=== PATIENT | female | born 1935 | race Caucasian/White ===

== ENCOUNTER 2017-05-19 14:16 | Observation (INO) ==
--- NOTE | 2017-05-19 14:54 | Emergency Department Note ---
Disposition Clinical Impression: UTI (urinary tract infection) Qualifiers: Urinary tract infection type: acute cystitis Disposition: Admitted As Inpatient Condition: Good Referrals: Braden Garibay MD [Primary Care Provider] - Forms: ED Satisfaction Letter Time of Disposition: 16:56 General Adult HPI - General Chief complaint: ED Urogenital-Female Stated complaint: UTI Time Seen by Provider: 05/19/17 14:28 Source: EMS Limitations: altered mental status Nursing Notes Reviewed: Yes Vital Signs Reviewed: Yes - History of Present Illness HPI Narrative: History of a UTI. Increased confusion. Unable to get her antibiotics at the [facility] due to low staffing and patient frequently pulling her IVs out. Pain Scale: 0 - Related Data Home Medications Medication Instructions Recorded Confirmed Acetaminophen [Tylenol] 325 mg PO Q6HR 09/14/15 05/12/16 Budesonide/Formoterol 160/4.5 2 puff IH BIDR 09/14/15 05/12/16 [Symbicort 160/4.5] Calcitriol 0.5 mcg PO Q48H 09/14/15 05/12/16 Docusate [Colace] 100 mg PO BID 09/14/15 05/12/16 Ferrous Sulfate [Iron] 325 mg PO DAILY 09/14/15 05/12/16 Fluticasone Propionate Nasal 1 spray NS DAILY 09/14/15 05/12/16 [Flonase] Folic Acid 1 mg PO DAILY 09/14/15 05/12/16 LORazepam [Ativan] 0.5 mg PO BID 09/14/15 05/12/16 Levothyroxine Sodium [Tirosint] 125 mcg PO DAILY 09/14/15 05/12/16 Magnesium Oxide [Magnesium] 400 mg PO DAILY 09/14/15 05/12/16 Memantine HCl [Namenda Xr] 28 mg PO DAILY 09/14/15 05/12/16 Metoprolol [Lopressor] 25 mg PO BID 09/14/15 05/12/16 Mirtazapine [Remeron] 15 mg PO HS 09/14/15 05/12/16 Nitrofurantoin Macrocrystal 50 mg PO HS 09/14/15 05/12/16 [Macrodantin] Omeprazole [PriLOSEC] 20 mg PO DAILY 09/14/15 05/12/16 Paroxetine HCl 10 mg PO DAILY 09/14/15 05/12/16 Previous Rx's Medication Instructions Recorded Gentamicin in NaCl, Iso-Osm 80 mg IV Q12HR 5 Days mls 05/18/17 [Gentamicin 90 mg/Ns 100 ml Pb] Allergies Allergy/AdvReac Type Severity Reaction Status Date / Time Amoxicillin Allergy unknown Verified 05/19/17 14:36 atropine Allergy unknown Verified 05/19/17 14:36 Diphenoxylate Allergy unknown Verified 05/19/17 14:36 enalapril Allergy unknown Verified 05/19/17 14:36 esomeprazole Allergy inknown Verified 05/19/17 14:36 Hydromorphone Allergy unknown Verified 05/19/17 14:36 Iodinated Contrast- Oral and Allergy unknown Verified 05/19/17 14:36 IV Dye [Iodinated Contrast Media - IV Dye] nitrofurantoin Allergy unknown Verified 05/19/17 14:36 Penicillins Allergy unkown Verified 05/19/17 14:36 piroxicam Allergy unknown Verified 05/19/17 14:36 Sulfa (Sulfonamide Allergy unknown Verified 05/19/17 14:36 Antibiotics) Limitations: ROS unobtainable due to patients medical condition Past Medical History - Past Medical History Medical history: Reports: dementia, GERD, hypertension, thyroid disease, other Surgical history: Reports: no surgical history Psychiatric history: Reports: anxiety, depression - Social History Smoking Status: Never smoker Alcohol use: Reports: none Drug use: Reports: none Physical Exam - General Limitations: altered mental status General appearance: alert, in no apparent distress - Head Head exam: atraumatic, normocephalic - Eye Eye exam: Present: normal appearance, PERRL, EOMI. Absent: scleral icterus - ENT ENT exam: normal exam, normal oropharynx, mucous membranes moist - Neck Neck exam: Present: normal inspection, full ROM, trachea midline. Absent: tenderness, meningismus - Chest Chest inspection: Present: normal inspection, symmetric chest wall rise. Absent : tenderness - Respiratory Respiratory exam: Present: normal lung sounds bilaterally. Absent: respiratory distress, wheezes, accessory muscle use - Cardiovascular Cardiovascular exam: Present: regular rate, normal rhythm, normal heart sounds - Abdominal Exam Abdominal exam: Present: soft, Non-Tender, normal bowel sounds. Absent: tenderness, distention, guarding, rebound, rigidity, organomegaly - Extremities Exam Extremities exam: Present: normal inspection, full ROM, normal capillary refill. Absent: tenderness, pedal edema - Back Exam Back exam: Present: normal inspection, full ROM. Absent: tenderness - Neurological Exam Neurological exam: Present: alert, other (Confused) - Psychiatric Psychiatric exam: Present: normal affect, normal mood - Skin Skin exam: Present: warm, dry, intact, normal color. Absent: rash, cyanosis, diaphoresis, erythema Course Course Narrative: Female patient presenting to the emergency department by EMS. Family is shortly behind her. They are advising that the patient is not acting herself. They state that she has been diagnosed with the UTI and has been treated for this however she cannot get her antibiotics at the [facility] due to her being so confused. They stated that she is pulling out her IVs. Patient has no complaints on my exam. She is pleasantly demented. Lung sounds are clear heart tones are normal. Abdomen soft and nontender. We will get a basic workup on the patient. I anticipate admission. We have started her on Rocephin while she is here for her UTI. - Reevaluation(s) Reevaluation #1: It appears as if the patient's size a urinary tract infection. We will admit patient to the hospital. We have started her on Rocephin. We have the sensitivities on paperwork from the culture that was taken on May 16 of her urine. She is sensitive to Rocephin. We have started this year. - Consultations Consultation #1: Dr. Dorman accepted patient in stable condition. Time: 16:44 Vital Signs Temperature 98.7 F 05/19/17 14:21 Pulse Rate 51 05/19/17 14:21 Respiratory Rate 14 05/19/17 14:21 Blood Pressure 138/82 05/19/17 14:21 O2 Sat by Pulse Oximetry 96 05/19/17 14:21 Temperature 98.7 F 05/19/17 14:21 Pulse Rate 54 05/19/17 16:20 Respiratory Rate 16 05/19/17 16:20 Blood Pressure 137/77 05/19/17 16:20 O2 Sat by Pulse Oximetry 97 05/19/17 16:20 Oxygen Delivery Oxygen Delivery Nasal Cannula Medical Decision Making - Medical Records Medical records reviewed: Yes I reviewed the patient's medical records. - Lab Data Lab results reviewed: Yes I reviewed the patient's lab results. Result diagrams: 05/19/17 15:01 05/19/17 15:01 Lab Results 05/19/17 05/19/17 05/19/17 Range/Units 15:01 15:01 16:15 WBC 4.7 (4.3-11.1) K/mcL RBC 4.34 (3.82-4.97) M/mcL Hgb 12.5 (11.5-15.4) g/dL Hct 40.3 (35.3-44.9) % MCV 92.9 (83.0-100.0) fL MCH 28.8 (28.0-33.3) pg MCHC 31.0 L (31.6-35.5) g/dL RDW 14.5 (11.5-14.5) % Plt Count 105 L (140-400) K/mcL MPV 11.1 (9.4-12.4) fL Immature Gran % 0.4 (0-4) % Seg Neutrophils % 65.3 % Lymphocytes % 19.4 % Monocytes % 11.3 % Eosinophils % 3.0 % Basophils % 0.6 % Neutrophils # 3.1 (1.6-8.9) K/mcL Lymphocytes # 0.9 (0.6-4.6) K/mcL Monocytes # 0.5 (0.0-1.3) K/mcL Eosinophils # 0.1 (0.0-0.6) K/mcL Basophils # 0.0 (0.0-0.2) K/mcL Immature Plt Fraction 7.4 H (1.1-6.1) % Sodium 140 (136-145) mEq/L Potassium 4.0 (3.5-4.5) mEq/L Chloride 103 (98-109) mEq/L Carbon Dioxide 29 (19-29) mEq/L BUN 24 H (7-20) mg/dL Creatinine 0.96 (0.57-1.11) mg/dL Est GFR ( Amer) > 60 (> 60) Est GFR (Non-Af Amer) 56 L (> 60) BUN/Creatinine Ratio 25 (6-26) Glucose 116 H (70-99) mg/dL Calculated Osmolality 295 (280-300) Calcium 9.8 (8.6-10.8) mg/dL Urine Color Yellow (Yellow) Urine Clarity Turbid A (Clear) Urine pH 7.0 (5.0-8.0) pH Units Ur Specific [place] 1.018 (1.010-1.025) Urine Protein Negative (Neg-Trace) mg/dL Urine Glucose (UA) Normal (Normal) mg/dL Urine Ketones Negative (Negative) mg/dL Urine Blood Negative (Negative) Urine Nitrite Negative (Negative) Urine Bilirubin Negative (Negative) Urine Urobilinogen Normal (Normal) mg/dL Ur Leukocyte Esterase Small H (Negative) Urine Microscopic RBC 3-5 H (0-3) per hpf Urine Microscopic WBC 5-15 H (0-3) per hpf Ur Squamous Epith Cells Many H (None-Few) per lpf Urine Bacteria None Seen (None-Few) per hpf Hyaline Casts None Seen (None-Few) per lpf Ur Culture Indicated? YES A (NO)
[2017-05-19 15:07] LABS: Hematocrit 40.3 % (35.3-44.9); Hemoglobin 12.5 g/dL (11.5-15.4); Immature Granulocytes % 0.4 % (0-4); Immature Platelets 7.4 % (1.1-6.1); Lymphocytes % 19.4 %; Mean Corpuscular Hemoglobin 28.8 pg (28.0-33.3); Mean Corpuscular Volume 92.9 fL (83.0-100.0); Mean Platelet Volume 11.1 fL (9.4-12.4); Monocytes % 11.3 %; Platelet Count 105 K/mcL (140-400); Red Blood Count 4.34 M/mcL (3.82-4.97); Red Cell Distribution Width 14.5 % (11.5-14.5); Segmented Neutrophils % 65.3 %
[2017-05-19 15:08] LABS: Basophils % 0.6 %; Eosinophils # 0.1 K/mcL (0.0-0.6); Lymphocytes # 0.9 K/mcL (0.6-4.6); Monocytes # 0.5 K/mcL (0.0-1.3); Neutrophils # 3.1 K/mcL (1.6-8.9)
--- NOTE | 2017-05-19 15:12 | Emergency Department Note ---
START Narrative - START START: I examined this patient and my medical decision-making was reviewed with the Resident Physician. I agree with the documented findings, disposition and treatment plan as described except to the extent set forth below. 81-year-old female sent over from the [facility] for weakness and poor by mouth intake. Patient was seen yesterday in our ER and diagnosed with the UTI. A culture report. They started the patient on gentamicin through the IV. She got 2 doses of that so far. The family states that they do not have enough staff to take care of her at the [facility] and they feel that she is not eating or drinking and is more weak and more withdrawn than she normally is. Review of the urine culture that was done as an outpatient that showed Proteus penneri. This was susceptible to vancomycin as well as to Rocephin. I think with her age that we would prefer to do Rocephin to see if she has an allergic reaction or not. Family does not feel safe taking her back to the [facility]. They would prefer the patient to be admitted. We will recheck some labs as well as urinalysis and send off another urine culture today.
[2017-05-19 15:20] LABS: BUN/Creatinine Ratio 25 (6-26); Blood Urea Nitrogen 24 mg/dL (7-20); Calcium 9.8 mg/dL (8.6-10.8); Carbon Dioxide 29 mEq/L (19-29); Chloride 103 mEq/L (98-109); Glucose 116 mg/dL (70-99); Osmolality,Calculated 295 (280-300); Sodium 140 mEq/L (136-145); eGFR For African Americans > 60 (> 60); eGFR For Non-African Americans 56 (> 60)
[2017-05-19 16:29] LABS: Bilirubin,Urine Negative (Negative); Blood,Urine Negative (Negative); Clarity,Urine Turbid (Clear); Color,Urine Yellow (Yellow); Glucose,Urine (UA) Normal (Normal); Ketones,Urine Negative (Negative); Leukocyte Esterase,Urine Small (Negative); Nitrite,Urine Negative (Negative); Protein,Urine Negative (Neg-Trace); Specific Gravity,Urine 1.018 (1.010-1.025); Urobilinogen,Urine Normal (Normal)
[2017-05-19 16:32] LABS: Bacteria,Urine None Seen per hpf (None-Few); Hyaline Casts,Urine None Seen per lpf (None-Few); Squamous Epithelial Cell,Urine Many per lpf (None-Few)
[2017-05-19] MEDS ORDERED: Acetaminophen 325 MG TABLET PO PRN (17:46)
[2017-05-19] MEDS ORDERED: Naloxone 0.4 MG/ML INJ IVP PRN (17:46)
--- NOTE | 2017-05-19 18:30 | Event Note ---
Date of Encounter: 05/19/17 Time of Encounter: 18:27 patient seen and examined. Proteus UTI. Will give ceftriaxone according to sensitivities. Family mentioned that she was hypoxic in NH and have some cough. Will check chest Xray. Full code
--- NOTE | 2017-05-19 18:42 | Internal Med History&Physical ---
Date of Encounter: 05/19/17 Time of Encounter: 18:40 Assessment and Plan (1) UTI (urinary tract infection) Current visit: Yes Status: Acute Patient has recent diagnosis of UTI with Culture on 05/14 growing Proteus sensitive to Rocephin. Continue Rocephin IVPB. IV fluids 0.9NS at 75mL/hr. Qualifiers: Urinary tract infection type: acute cystitis Hematuria presence: without hematuria Qualified Code(s): N30.00 - Acute cystitis without hematuria (2) Hypoxia Current visit: Yes Status: Acute Patient's family reports her oxygen level was in the 70's on room air this morning. Patient does not normally wear oxygen. Lungs sound clear on auscultation and patient satting mid-high 90s on 2L NC. Will check Chest Xray. (3) Dementia Current visit: Yes Status: Acute Patient has Parkinson's and dementia. She is pleasantly confused today. Bed alarm, Fall precautions. Continue home doses of Namenda and Sinemet. Qualifiers: Dementia type: Parkinson's disease Dementia behavioral disturbance: without behavioral disturbance Qualified Code(s): G20 - Parkinson's disease; F02.80 - Dementia in other diseases classified elsewhere without behavioral disturbance; F02.80 - Dementia in other diseases classified elsewhere without behavioral disturbance; F02.80 - Dementia in other diseases classified elsewhere without behavioral disturbance (4) Celiac disease Current visit: Yes Status: Chronic Celiac diet. (5) DVT prophylaxis Current visit: Yes Status: Acute anti-embolic stockings Heparin SQ BID Internal Medicine - H&P: HPI Chief complaint: confusion Admitted From: Emergency Dept Plans for Post Hospital Care: Transfer [facility] History of present illness: Ms. Griffin is a 81 year old female with dementia, hypertension, hypothyroid, Parkinson's was sent to the emergency department today from her long term with confusion. Patient's family reports she has not been behaving like herself , thinks more confused. Patient's family reports that she has not been eating and drinking very well either. He also reports that this morning her oxygen level was in the 70s on room air. Patient has baseline dementia and does not report any complaints on review of systems. She denies any pain or dysuria. Patient was diagnosed with UTI recently with cultures growing Proteus sensitive to ceftriaxone. Evaluation emergency department revealed normal white blood cell count 4.7. Otherwise are grossly normal. Coronary urine culture was sent. On exam, patient alert and oriented 2 and pleasantly confused. She follows directions appropriately. Heart has regular rate and rhythm, lungs are clear to auscultation bilaterally. Abdomen soft, nontender, with positive bowel sounds. No peripheral edema. Past Med Surg Social Fam HX - Past Medical History Medical history: dementia, GERD, hypertension, thyroid disease, other Psychiatric history: anxiety, depression - Past Surgical History Surgical History: no surgical history - Social History Smoking Status: Never smoker Smokeless Tobacco Status: No Alcohol use: none Drug use: none - Family History Father Living Status: Hx Family Cardiac Disorders: Yes Mother Living Status: Hx Family Cardiac Disorders: Yes Internal Medicine - H&P: Meds Acetaminophen [Tylenol] 650 mg PO Q6HR PRN 09/14/15 [History] Budesonide/Formoterol 160/4.5 [Symbicort 160/4.5] 2 puff IH BIDR 09/14/15 [ History] Calcitriol 1 mcg PO Q48H 09/14/15 [History] Docusate [Colace] 100 mg PO BID 09/14/15 [History] Folic Acid 1 mg PO DAILY 09/14/15 [History] LORazepam [Ativan] 0.25 mg PO BID PRN 09/14/15 [History] Magnesium Oxide [Magnesium] 400 mg PO DAILY 09/14/15 [History] Memantine HCl [Namenda Xr] 28 mg PO DAILY 09/14/15 [History] Metoprolol [Lopressor] 25 mg PO BID 09/14/15 [History] Mirtazapine [Remeron] 7.5 mg PO HS 09/14/15 [History] Nitrofurantoin Macrocrystal [Macrodantin] 50 mg PO HS 09/14/15 [History] Omeprazole [PriLOSEC] 20 mg PO DAILY 09/14/15 [History] Paroxetine HCl 10 mg PO DAILY 09/14/15 [History] Gentamicin in NaCl, Iso-Osm [Gentamicin 90 mg/Ns 100 ml Pb] 80 mg IV Q12HR 5 Days mls 05/18/17 [Rx] Albuterol Sulfate [Albuterol Inhaler] 2 puff IH Q4-6H PRN 05/19/17 [History] Azelastine 0.1% Nasal [place] [Astelin] 2 spr NS BID 05/19/17 [History] Calcium Carbonate/Vitamin D3 [Calcium 500 mg Chewable Tablet] 1,500 mg PO BID [History] Carbidopa/Levodopa ER 50/200 [Sinemet ER 50-200 TAB] 1 tab PO BID 05/19/17 [ History] Lactobacillus Acidophilus [Acidophilus] 1 cap PO BID 05/19/17 [History] Levothyroxine Sodium [Levoxyl] 175 mcg PO DAILY 05/19/17 [History] Magnesium Hydroxide [Milk of Magnesia] 30 ml PO DAILY PRN 05/19/17 [History] Na Phos,M-B/Na Phos,Di-Ba [Fleet Enema Extra] 1 each RC Q48H PRN 05/19/17 [ History] 3 Allergy/AdvReac Type Severity Reaction Status Date / Time Amoxicillin Allergy unknown Verified 05/19/17 14:36 atropine Allergy unknown Verified 05/19/17 14:36 Diphenoxylate Allergy unknown Verified 05/19/17 14:36 enalapril Allergy unknown Verified 05/19/17 14:36 esomeprazole Allergy inknown Verified 05/19/17 14:36 Hydromorphone Allergy unknown Verified 05/19/17 14:36 Iodinated Contrast- Oral and Allergy unknown Verified 05/19/17 14:36 IV Dye [Iodinated Contrast Media - IV Dye] nitrofurantoin Allergy unknown Verified 05/19/17 14:36 Penicillins Allergy unkown Verified 05/19/17 14:36 piroxicam Allergy unknown Verified 05/19/17 14:36 Sulfa (Sulfonamide Allergy unknown Verified 05/19/17 14:36 Antibiotics) All Systems PM: A 10-system review of systems was performed and is negative for pertinent findings except as documented above in the HPI. - Constitutional Constitutional: no chills, no fever(s), no night sweats - EENT Eyes: no change in vision, no discharge, no pain, no photophobia Ears: no ear discharge, no ear pain, no tinnitus Nose, mouth and throat: no dysphagia, no nasal discharge, no neck pain, no sore throat - Cardiovascular Cardiovascular ROS IM: no chest pain, no diaphoresis, no dyspnea, no lightheadedness, no palpitations, no syncope - Respiratory Respiratory: no cough, no dyspnea, no wheezing, no excessive phlegm production - Gastrointestinal Gastrointestinal: no abdominal pain, no diarrhea, no hematemesis, no hematochezia, no melena, no nausea, no vomiting - Genitourinary Genitourinary: no change in urinary stream, no dysuria, no flank pain, no hematuria - Musculoskeletal Musculoskeletal ROS IM: no numbness, no tingling - Integumentary Integumentary IM: no rash, no unusual bruising - Neurological Neurological ROS: no confusion, no convulsions, no focal weakness, no numbness, no tingling, no tremor(s) - Hematologic/Lymphatic Hematologic/Lymphatic: no easy bruising - Constitutional Vitals: Temp Pulse Resp BP Pulse Ox 97.6 F 56 16 142/80 98 05/19/17 17:45 05/19/17 17:45 05/19/17 17:45 05/19/17 17:45 05/19/17 17:45 General appearance: Present: A&O X 2, pleasant, no acute distress - Head Head exam: Present: atraumatic, normocephalic - Eye Eye exam: Present: PERRL, conjuntiva pink, sclera anicteric Pupils: Present: PERRL - Neck Neck exam general surgery: Present: supple, trachea midline. Absent: lymphadenopathy - Respiratory Respiratory exam: Present: CTAB. Absent: accessory muscle use, rales, rhonchi, wheezes - Cardiovascular Cardiovascular exam: Present: RRR, +S1, +S2. Absent: diastolic murmur, gallop, rubs, systolic murmur - GI/Abdominal GI/Abdominal exam: Present: normal bowel sounds, soft, no peritoneal signs. Absent: distended, tenderness - Extremities Exam Extremities exam: Present: warm, radial pulses palpable and symmetrical. Absent : calf tenderness, cyanotic, pedal edema - Neurological Exam Neurological exam: Present: CN II-XII intact, oriented X3, no focal deficits. Absent: pronater drift, facial droop, speech deficit - Skin Skin exam: Present: dry, intact Internal Med - H&P Results - Labs CBC & Chem 7: 05/19/17 15:01 05/19/17 15:01 Labs: All Lab Results (24 Hours) 10/07/17 10/07/17 10/07/17 Range/Units 15:01 15:01 16:15 WBC 4.7 (4.3-11.1) K/mcL RBC 4.34 (3.82-4.97) M/mcL Hgb 12.5 (11.5-15.4) g/dL Hct 40.3 (35.3-44.9) % MCV 92.9 (83.0-100.0) fL MCH 28.8 (28.0-33.3) pg MCHC 31.0 L (31.6-35.5) g/dL RDW 14.5 (11.5-14.5) % Plt Count 105 L (140-400) K/mcL MPV 11.1 (9.4-12.4) fL Immature Gran % 0.4 (0-4) % Seg Neutrophils % 65.3 % Lymphocytes % 19.4 % Monocytes % 11.3 % Eosinophils % 3.0 % Basophils % 0.6 % Neutrophils # 3.1 (1.6-8.9) K/mcL Lymphocytes # 0.9 (0.6-4.6) K/mcL Monocytes # 0.5 (0.0-1.3) K/mcL Eosinophils # 0.1 (0.0-0.6) K/mcL Basophils # 0.0 (0.0-0.2) K/mcL Immature Plt Fraction 7.4 H (1.1-6.1) % Sodium 140 (136-145) mEq/L Potassium 4.0 (3.5-4.5) mEq/L Chloride 103 (98-109) mEq/L Carbon Dioxide 29 (19-29) mEq/L BUN 24 H (7-20) mg/dL Creatinine 0.96 (0.57-1.11) mg/dL Est GFR ( Amer) > 60 (> 60) Est GFR (Non-Af Amer) 56 L (> 60) BUN/Creatinine Ratio 25 (6-26) Glucose 116 H (70-99) mg/dL Calculated Osmolality 295 (280-300) Calcium 9.8 (8.6-10.8) mg/dL Urine Color Yellow (Yellow) Urine Clarity Turbid A (Clear) Urine pH 7.0 (5.0-8.0) pH Units Ur Specific [place] 1.018 (1.010-1.025) Urine Protein Negative (Neg-Trace) mg/dL Urine Glucose (UA) Normal (Normal) mg/dL Urine Ketones Negative (Negative) mg/dL Urine Blood Negative (Negative) Urine Nitrite Negative (Negative) Urine Bilirubin Negative (Negative) Urine Urobilinogen Normal (Normal) mg/dL Ur Leukocyte Esterase Small H (Negative) Urine Microscopic RBC 3-5 H (0-3) per hpf Urine Microscopic WBC 5-15 H (0-3) per hpf Ur Squamous Epith Cells Many H (None-Few) per lpf Urine Bacteria None Seen (None-Few) per hpf Hyaline Casts None Seen (None-Few) per lpf Ur Culture Indicated? YES A (NO)
[2017-05-19] MEDS: Mirtazapine 15 MG TABLET PO SCH ×3 (21:44→23:59)
[2017-05-19] MEDS: Carbidopa/Levodopa ER 50/200 TABLET PO SCH ×3 (21:44→23:59)
[2017-05-19] MEDS: Lactobacillus 1 EACH CAP.SPRINK PO SCH ×3 (21:44→23:59)
[2017-05-19] MEDS: 0.9 % Sodium Chloride 1,000 ML IVC SCH ×2 (21:44→23:44)
[2017-05-19] MEDS: *HR* LORazepam 0.5 MG TABLET PO PRN ×2 (21:47→23:59)
[2017-05-19] MEDS: Ipratropium/Albuterol Neb 3 ML IH SCH (22:10)
[2017-05-19] MEDS: Budesonide/Formoterol 160/4.5 MDI IH SCH (22:12)
[2017-05-20] MEDS: Ipratropium/Albuterol Neb 3 ML IH SCH ×2 (04:23→09:55)
[2017-05-20 04:37] LABS: Hematocrit 38.3 % (35.3-44.9); Immature Granulocytes % 0.4 % (0-4); Red Cell Distribution Width 14.5 % (11.5-14.5)
[2017-05-20 04:39] LABS: Basophils % 0.8 %; Eosinophils # 0.2 K/mcL (0.0-0.6); Eosinophils % 3.6 %; Immature Platelets 11.1 % (1.1-6.1); Lymphocytes % 20.4 %; Mean Corpuscular HGB Conc 31.3 g/dL (31.6-35.5); Mean Corpuscular Hemoglobin 29.1 pg (28.0-33.3); Mean Corpuscular Volume 92.7 fL (83.0-100.0); Mean Platelet Volume 12.7 fL (9.4-12.4); Monocytes # 0.5 K/mcL (0.0-1.3); Monocytes % 10.2 %; Red Blood Count 4.13 M/mcL (3.82-4.97); Segmented Neutrophils % 64.6 %
[2017-05-20 04:52] LABS: BUN/Creatinine Ratio 23 (6-26); Blood Urea Nitrogen 22 mg/dL (7-20); Carbon Dioxide 23 mEq/L (19-29); Chloride 104 mEq/L (98-109); Glucose 89 mg/dL (70-99); Osmolality,Calculated 291 (280-300); Potassium 4.4 mEq/L (3.5-4.5); Sodium 139 mEq/L (136-145); eGFR For African Americans > 60 (> 60); eGFR For Non-African Americans 57 (> 60)
[2017-05-20 04:57] LABS: Platelet Count 93 K/mcL (140-400)
[2017-05-20] MEDS ORDERED: Folic Acid 1 MG TABLET PO SCH (09:00)
[2017-05-20] MEDS ORDERED: Magnesium Oxide 400 MG TABLET PO SCH (09:00)
[2017-05-20] MEDS: Lactobacillus 1 EACH CAP.SPRINK PO SCH (09:05)
[2017-05-20] MEDS: Carbidopa/Levodopa ER 50/200 TABLET PO SCH (09:05)
[2017-05-20] MEDS: Budesonide/Formoterol 160/4.5 MDI IH SCH (09:55)
[2017-05-20 10:53] VITALS: BP 147/68
--- NOTE | 2017-05-20 11:35 | Discharge Summary ---
Date of Encounter: 05/20/17 Time of Encounter: 10:00 - Discharge Diagnosis (1) UTI (urinary tract infection) Priority: Primary Status: Acute Comments: with Proteus penneri sensitive to 3rd gen cephalosporins Qualifiers: Urinary tract infection type: acute cystitis Hematuria presence: without hematuria Qualified Code(s): N30.00 - Acute cystitis without hematuria (2) Celiac disease Priority: Secondary Status: Chronic (3) Dementia Priority: Secondary Status: Acute Qualifiers: Dementia type: Parkinson's disease Dementia behavioral disturbance: without behavioral disturbance Qualified Code(s): G20 - Parkinson's disease; F02.80 - Dementia in other diseases classified elsewhere without behavioral disturbance; F02.80 - Dementia in other diseases classified elsewhere without behavioral disturbance; F02.80 - Dementia in other diseases classified elsewhere without behavioral disturbance (4) DVT prophylaxis Priority: Secondary Status: Acute (5) Hypoxia Priority: Secondary Status: Acute - Discharge Medications Prescriptions: Azithromycin [Azithromycin 6-Tab Pack] 250 mg PO PER PKG DI #6 tab Cefixime [Suprax] 400 mg PO DAILY #10 capsule LORazepam [Ativan] 0.25 mg PO BID PRN #14 tablet PRN Reason: Anxiety Home Medications: Acetaminophen [Tylenol] 650 mg PO Q6HR PRN 09/14/15 [History] Budesonide/Formoterol 160/4.5 [Symbicort 160/4.5] 2 puff IH BIDR 09/14/15 [ History] Calcitriol 1 mcg PO Q48H 09/14/15 [History] Docusate [Colace] 100 mg PO BID 09/14/15 [History] Folic Acid 1 mg PO DAILY 09/14/15 [History] Magnesium Oxide [Magnesium] 400 mg PO DAILY 09/14/15 [History] Memantine HCl [Namenda Xr] 28 mg PO DAILY 09/14/15 [History] Metoprolol [Lopressor] 25 mg PO BID 09/14/15 [History] Mirtazapine [Remeron] 7.5 mg PO HS 09/14/15 [History] Nitrofurantoin Macrocrystal [Macrodantin] 50 mg PO HS 09/14/15 [History] Omeprazole [PriLOSEC] 20 mg PO DAILY 09/14/15 [History] Paroxetine HCl 10 mg PO DAILY 09/14/15 [History] Albuterol Sulfate [Albuterol Inhaler] 2 puff IH Q4-6H PRN 05/19/17 [History] Azelastine 0.1% Nasal [place] [Astelin] 2 spr NS BID 05/19/17 [History] Calcium Carbonate/Vitamin D3 [Calcium 500 mg Chewable Tablet] 1,500 mg PO BID [History] Carbidopa/Levodopa ER 50/200 [Sinemet ER 50-200 Tab] 1 tab PO BID 05/19/17 [ History] Lactobacillus Acidophilus [Acidophilus] 1 cap PO BID 05/19/17 [History] Levothyroxine Sodium [Levoxyl] 175 mcg PO DAILY 05/19/17 [History] Magnesium Hydroxide [Milk of Magnesia] 30 ml PO DAILY PRN 05/19/17 [History] Na Phos,M-B/Na Phos,Di-Ba [Fleet Enema Extra] 1 each RC Q48H PRN 05/19/17 [ History] Azithromycin [Azithromycin 6-Tab Pack] 250 mg PO PER PKG DI #6 tab 05/20/17 [Rx] Cefixime [Suprax] 400 mg PO DAILY #10 capsule 05/20/17 [Rx] LORazepam [Ativan] 0.25 mg PO BID PRN #14 tablet 05/20/17 [Rx] Allergies/Adverse Reactions: 3 Allergy/AdvReac Type Severity Reaction Status Date / Time Amoxicillin Allergy unknown Verified 05/19/17 14:36 atropine Allergy unknown Verified 05/19/17 14:36 Diphenoxylate Allergy unknown Verified 05/19/17 14:36 enalapril Allergy unknown Verified 05/19/17 14:36 esomeprazole Allergy inknown Verified 05/19/17 14:36 Hydromorphone Allergy unknown Verified 05/19/17 14:36 Iodinated Contrast- Oral and Allergy unknown Verified 05/19/17 14:36 IV Dye [Iodinated Contrast Media - IV Dye] nitrofurantoin Allergy unknown Verified 05/19/17 14:36 Penicillins Allergy unkown Verified 05/19/17 14:36 piroxicam Allergy unknown Verified 05/19/17 14:36 Sulfa (Sulfonamide Allergy unknown Verified 05/19/17 14:36 Antibiotics) Date of admission: 05/19/17 16:57 Primary care physician: Braden Garibay MD Discharging clinician: Ana M Dillard Anticipated date of discharge: 05/20/17 - Patient Status Disposition: Transfer SNF Condition: Good Functional capacity at discharge: uses cane/walker Overall status at discharge: patient is progressing back to baseline - Discharge Instructions Instructions: Urinary Tract Infection in Women (DC) Follow Up With: Braden Garibay MD [Primary Care Provider] - (in 1-2 weeks) - Diet and Activity Activity: as per physical therapy Diet: low fat, low cholesterol, low salt diet, other (gluten free diet) Hospital course: Ms. Griffin is a 81 year old female patient who [facility] at [facility] with a history of dementia, celiac disease was sent over to the ER with episodes of increased confusion. Patient had recently been seen in the ER at different facilities and had previously been diagnosed with urinary tract infection. Patient had been treated with Cipro for 7 days. However her urine culture grew Proteus penneri that is resistant to ciprofloxacin but sensitive to ceftriaxone and gentamicin. Patient had been sent back to the [facility] from ER yesterday during her initial visit here with a prescription for IV gentamicin. However she had been pulling off her IV and was also having hypoxia with oxygen in the 70s on room air. She was evaluated here in the ER again. Chest x-ray showed basilar atelectasis/infiltrate. She did not have any signs of pneumonia. She does have underlying COPD which could be contributing to her hypoxia. She was started on treatment with ceftriaxone for her urinary tract infection. This morning she is doing much better clinically. She is stable to be discharged back to [facility] facility. She will need to be on oxygen to keep sats greater than 88%. She will be discharged back on oral Suprax to complete treatment course for her Proteus UTI. - Time Spent with Patient Total time spent providing and/or coordinating discharge services: Greater than 30 minutes (32 min) - Constitutional Vitals: Temp Pulse Resp BP Pulse Ox 98.0 F 78 20 147/68 92 05/20/17 10:50 05/20/17 10:50 05/20/17 10:50 05/20/17 10:50 05/20/17 10:50 General appearance: Present: A&O X 2, pleasant, no acute distress, answers questions appropriately - Eye Eye exam: Present: EOMI, PERRL, conjuntiva pink, sclera anicteric - Respiratory Respiratory exam: Present: CTAB. Absent: accessory muscle use, rales, rhonchi, wheezes - Cardiovascular Cardiovascular exam: Present: RRR, +S1, +S2. Absent: diastolic murmur, gallop, rubs, systolic murmur - GI/Abdominal GI/Abdominal exam: Present: normal bowel sounds, soft, no peritoneal signs. Absent: distended, tenderness - Neurological Exam Neurological exam: Present: alert, no focal deficits. Absent: facial droop, speech deficit
--- NOTE | 2017-05-20 11:45 | Physician Discharge Referral ---
ExtendedCare Referral Info Provider in Charge after Transfer: PCP Institutional Level of Care: Skilled - Diagnosis (1) UTI (urinary tract infection) Priority: Primary Status: Acute (2) Celiac disease Priority: Secondary Status: Chronic (3) Dementia Priority: Secondary Status: Acute (4) DVT prophylaxis Priority: Secondary Status: Acute (5) Hypoxia Priority: Secondary Status: Acute Prognosis: Fair Aware of Diagnosis: Patient, Family Aware of Prognosis: Family - Transfer Medications Prescriptions: Azithromycin [Azithromycin 6-Tab Pack] 250 mg PO PER PKG DI #6 tab Cefixime [Suprax] 400 mg PO DAILY #10 capsule LORazepam [Ativan] 0.25 mg PO BID PRN #14 tablet PRN Reason: Anxiety Home Medications: Acetaminophen [Tylenol] 650 mg PO Q6HR PRN 09/14/15 [History] Budesonide/Formoterol 160/4.5 [Symbicort 160/4.5] 2 puff IH BIDR 09/14/15 [ History] Calcitriol 1 mcg PO Q48H 09/14/15 [History] Docusate [Colace] 100 mg PO BID 09/14/15 [History] Folic Acid 1 mg PO DAILY 09/14/15 [History] Magnesium Oxide [Magnesium] 400 mg PO DAILY 09/14/15 [History] Memantine HCl [Namenda Xr] 28 mg PO DAILY 09/14/15 [History] Metoprolol [Lopressor] 25 mg PO BID 09/14/15 [History] Mirtazapine [Remeron] 7.5 mg PO HS 09/14/15 [History] Nitrofurantoin Macrocrystal [Macrodantin] 50 mg PO HS 09/14/15 [History] Omeprazole [PriLOSEC] 20 mg PO DAILY 09/14/15 [History] Paroxetine HCl 10 mg PO DAILY 09/14/15 [History] Albuterol Sulfate [Albuterol Inhaler] 2 puff IH Q4-6H PRN 05/19/17 [History] Azelastine 0.1% Nasal [place] [Astelin] 2 spr NS BID 05/19/17 [History] Calcium Carbonate/Vitamin D3 [Calcium 500 mg Chewable Tablet] 1,500 mg PO BID [History] Carbidopa/Levodopa ER 50/200 [Sinemet ER 50-200 Tab] 1 tab PO BID 05/19/17 [ History] Lactobacillus Acidophilus [Acidophilus] 1 cap PO BID 05/19/17 [History] Levothyroxine Sodium [Levoxyl] 175 mcg PO DAILY 05/19/17 [History] Magnesium Hydroxide [Milk of Magnesia] 30 ml PO DAILY PRN 05/19/17 [History] Na Phos,M-B/Na Phos,Di-Ba [Fleet Enema Extra] 1 each RC Q48H PRN 05/19/17 [ History] Azithromycin [Azithromycin 6-Tab Pack] 250 mg PO PER PKG DI #6 tab 05/20/17 [Rx] Cefixime [Suprax] 400 mg PO DAILY #10 capsule 05/20/17 [Rx] LORazepam [Ativan] 0.25 mg PO BID PRN #14 tablet 05/20/17 [Rx] Allergies/Adverse Reactions: 3 Allergy/AdvReac Type Severity Reaction Status Date / Time Amoxicillin Allergy unknown Verified 05/19/17 14:36 atropine Allergy unknown Verified 05/19/17 14:36 Diphenoxylate Allergy unknown Verified 05/19/17 14:36 enalapril Allergy unknown Verified 05/19/17 14:36 esomeprazole Allergy inknown Verified 05/19/17 14:36 Hydromorphone Allergy unknown Verified 05/19/17 14:36 Iodinated Contrast- Oral and Allergy unknown Verified 05/19/17 14:36 IV Dye [Iodinated Contrast Media - IV Dye] nitrofurantoin Allergy unknown Verified 05/19/17 14:36 Penicillins Allergy unkown Verified 05/19/17 14:36 piroxicam Allergy unknown Verified 05/19/17 14:36 Sulfa (Sulfonamide Allergy unknown Verified 05/19/17 14:36 Antibiotics) - Respiratory Orders Oxygen / L per min (keep sats 90%) Smoking Cessation: Smoking cessation has been advised. For more information, call the [place] Tobacco Quit Line at 3-499-ARPL-NOW. - Advance Directives Code Status: Full Code - Mobility Orders Other (per PT) - Rehabiliation Orders Rehab Potential: Fair Rehab Orders: Evaluation for Physical Therapy, Evaluation for Occupational Therapy - Diet Orders Cardiac (gluten free) CERTIFICATION: I certify that the transfer of the above named patient to an Extended Care Facility is necessary for the continuing treatment of the diagnosis listed. The above information is true and accurate reflection of patient's current condition. Confidential - Redisclosure prohibited without a patient's written consent.
[2017-05-20] MEDS ORDERED: CefTRIAXone 1,000 MG VIAL IM ONE (12:06)
== END 2017-05-20 14:26 ==
LOC: EMEROO 14:16 → 3ANU 14:16 → SUATTDRO 16:57 → 3ANU 17:36
PROVIDERS: ADMIT Hospitalist; ATTEND Internal Medicine

== ENCOUNTER 2018-03-25 09:45 | Inpatient (IN) ==
--- NOTE | 2018-03-25 09:54 | Emergency Department Note ---
Disposition Clinical Impression: Decreased oral intake, Dehydration UTI (urinary tract infection) Qualifiers: Urinary tract infection type: site unspecified Hematuria presence: without hematuria Qualified Code(s): N39.0 - Urinary tract infection, site not specified Failure to thrive Qualifiers: Failure to thrive age range: in adult Qualified Code(s): R62.7 - Adult failure to thrive Disposition: Admitted As Inpatient Condition: Fair Referrals: Braden Garibay MD [Primary Care Provider] - Forms: ED Satisfaction Letter Time of Disposition: 12:07 General Adult HPI - General Chief complaint: ED Weakness Stated complaint: weakness Time Seen by Provider: 03/25/18 09:47 Source: patient Mode of arrival: ambulatory Limitations: no limitations Nursing Notes Reviewed: Yes Vital Signs Reviewed: Yes - History of Present Illness HPI Narrative: Patient is an 82-year-old female with past medical history of dementia, hypertension, hypothyroidism, a fib. She presents today due to decreased food and drink intake. EMS states that the patient has not eaten or drank any liquids for the past week. When asked why, she states that she "just does not feel like eating or drinking ". She denies any chest pain, shortness of breath , nausea, vomiting, fevers, diarrhea, abdominal pain. She states that she feels generally weak. Denies any focal numbness, tingling, weakness. Denies any falls. Denies any dysuria, hematuria. - Related Data Home Medications Medication Instructions Recorded Confirmed Acetaminophen [Tylenol] 650 mg PO Q6HR PRN 09/14/15 02/28/18 Budesonide/Formoterol 160/4.5 2 puff IH BIDR 09/14/15 02/28/18 [Symbicort 160/4.5] Calcitriol 1 mcg PO Q48H 09/14/15 02/28/18 Docusate [Colace] 100 mg PO BID 09/14/15 02/28/18 Folic Acid 1 mg PO DAILY 09/14/15 02/28/18 Magnesium Oxide [Magnesium] 400 mg PO DAILY 09/14/15 02/28/18 Memantine HCl [Namenda Xr] 28 mg PO DAILY 09/14/15 02/28/18 Metoprolol [Lopressor] 25 mg PO BID 09/14/15 02/28/18 Mirtazapine [Remeron] 7.5 mg PO HS 09/14/15 02/28/18 Nitrofurantoin Macrocrystal 50 mg PO HS 09/14/15 02/28/18 [Macrodantin] Omeprazole [PriLOSEC] 20 mg PO DAILY 09/14/15 02/28/18 Paroxetine HCl 10 mg PO DAILY 09/14/15 02/28/18 Azelastine 0.1% Nasal [place] 2 spr NS BID 05/19/17 02/28/18 [Astelin] Calcium Carbonate/Vitamin D3 1,500 mg PO BID 05/19/17 02/28/18 [Calcium 500 mg Chewable Tablet] Carbidopa/Levodopa ER 50/200 1 tab PO BID 05/19/17 02/28/18 [Sinemet ER 50-200 Tab] Lactobacillus Acidophilus 1 cap PO BID 05/19/17 02/28/18 [Acidophilus] Levothyroxine Sodium [Levoxyl] 175 mcg PO DAILY 05/19/17 02/28/18 Magnesium Hydroxide [Milk of 30 ml PO DAILY PRN 05/19/17 02/28/18 Magnesia] Na Phos,M-B/Na Phos,Di-Ba [Fleet 1 each RC Q48H PRN 05/19/17 02/28/18 Enema Extra] Albuterol Sulfate [Ventolin Hfa] 18 gm IH AD 05/24/17 02/28/18 Levothyroxine [Synthroid] 150 mcg PO DAILY 02/28/18 02/28/18 Quetiapine Fumarate [SEROquel] 12.5 mg PO BID 02/28/18 02/28/18 Allergies Allergy/AdvReac Type Severity Reaction Status Date / Time Amoxicillin Allergy unknown Verified 02/28/18 15:07 atropine Allergy unknown Verified 02/28/18 15:07 Diphenoxylate Allergy unknown Verified 02/28/18 15:07 enalapril Allergy unknown Verified 02/28/18 15:07 esomeprazole Allergy inknown Verified 02/28/18 15:07 Hydromorphone Allergy unknown Verified 02/28/18 15:07 Iodinated Contrast- Oral and Allergy unknown Verified 02/28/18 15:07 IV Dye [Iodinated Contrast Media - IV Dye] nitrofurantoin Allergy unknown Verified 02/28/18 15:07 Penicillins Allergy unkown Verified 02/28/18 15:07 piroxicam Allergy unknown Verified 02/28/18 15:07 Sulfa (Sulfonamide Allergy unknown Verified 02/28/18 15:07 Antibiotics) All systems ED: reviewed and negative except as stated. Constitutional: Denies: fever Respiratory: Denies: cough, dyspnea Gastrointestinal: Reports: other (Decreased food and drink intake). Denies: abdominal pain, nausea, vomiting, constipation Genitourinary: Denies: urgency, dysuria Musculoskeletal: Denies: back pain Integumentary: Denies: rash Neurological: Denies: headache, weakness, numbness Endocrine: Reports: fatigue Past Medical History - Past Medical History Attestation: Yes The following information was validated with the patient. Source: patient Medical history: Reports: dementia, GERD, hypertension, thyroid disease, other Surgical history: Reports: no surgical history Psychiatric history: Reports: anxiety, depression - Social History Smoking Status: Never smoker Smokeless Tobacco Status: No Alcohol use: Reports: none Drug use: Reports: none Physical Exam - General Limitations: no limitations General appearance: alert, in no apparent distress - Head Head exam: atraumatic, normocephalic, normal inspection - Eye Eye exam: Present: normal appearance, PERRL, EOMI - ENT ENT exam: normal oropharynx, mucous membranes dry - Neck Neck exam: Present: normal inspection, full ROM, trachea midline - Chest Chest inspection: Present: normal inspection, symmetric chest wall rise - Respiratory Respiratory exam: Present: normal lung sounds bilaterally - Cardiovascular Cardiovascular exam: Present: regular rate, normal rhythm, normal heart sounds - Abdominal Exam Abdominal exam: Present: soft, Non-Tender. Absent: tenderness, distention, guarding, rebound, rigidity - Extremities Exam Extremities exam: Present: normal inspection, full ROM. Absent: tenderness, pedal edema - Neurological Exam Neurological exam: Present: alert, oriented X3, CN II-XII intact. Absent: motor sensory deficit - Psychiatric Psychiatric exam: Present: normal affect, normal mood - Skin Skin exam: Present: warm, dry, intact, normal color Course Course Narrative: Systolic blood pressure 108. Otherwise, the rest of the vitals within normal limits. Physical exam shows dry mucous membranes. Otherwise, lungs clear to auscultation, abdomen soft and nontender. No overlying skin changes. We will perform basic blood work, TSH, free T3 and T4 due to history of hypothyroidism. We will also obtain urinalysis, chest x-ray. 11:48 patient has elevated troponin level. Urinalysis shows large leukocyte esterase, straight cath specimen. Will start on rocephin. Patient currently denies any chest pain or shortness of breath. Chest x-ray shows possible left pleural effusion but otherwise no signs of pneumonia. We will admit the patient for possible UTI, elevated troponin level, dehydration, failure to thrive. Chest X-Ray 03/25/18 09:54 IMPRESSION: Blunting of left costophrenic angle could represent a left pleural effusion. Otherwise, stable chest D/ / Tc Núñez MD / Tc Núñez MD Interpreting Provider: Tc Núñez MD Vital Signs Temperature 97.8 F 03/25/18 09:51 Pulse Rate 81 03/25/18 09:51 Respiratory Rate 18 03/25/18 09:51 Blood Pressure 105/84 03/25/18 09:51 O2 Sat by Pulse Oximetry 91 03/25/18 09:51 Temperature 97.8 F 03/25/18 09:51 Pulse Rate 93 03/25/18 11:52 Respiratory Rate 16 03/25/18 11:52 Blood Pressure 100/79 03/25/18 11:52 O2 Sat by Pulse Oximetry 99 03/25/18 11:52 Oxygen Delivery Oxygen Delivery Room Air Medical Decision Making - [facility] Narrative Medical decision making narrative: Systolic blood pressure 108. Otherwise, the rest of the vitals within normal limits. Physical exam shows dry mucous membranes. Otherwise, lungs clear to auscultation, abdomen soft and nontender. No overlying skin changes. We will perform basic blood work, TSH, free T3 and T4 due to history of hypothyroidism. We will also obtain urinalysis, chest x-ray. 11:48 patient has elevated troponin level. Urinalysis shows large leukocyte esterase, straight cath specimen. Will start on rocephin. Patient currently denies any chest pain or shortness of breath. Chest x-ray shows possible left pleural effusion but otherwise no signs of pneumonia. We will admit the patient for possible UTI, elevated troponin level, dehydration, failure to thrive. - Medical Records Medical records reviewed: Yes I reviewed the patient's medical records. - Lab Data Lab results reviewed: Yes I reviewed the patient's lab results. Result diagrams: 03/25/18 09:54 03/25/18 09:54 Lab Results 03/25/18 03/25/18 03/25/18 Range/Units 09:54 09:54 11:23 WBC 7.1 (4.3-11.1) K/mcL RBC 4.51 (3.82-4.97) M/mcL Hgb 13.3 (11.5-15.4) g/dL Hct 42.3 (35.3-44.9) % MCV 93.8 (83.0-100.0) fL MCH 29.5 (28.0-33.3) pg MCHC 31.4 L (31.6-35.5) g/dL RDW 15.5 H (11.5-14.5) % Plt Count 78 L (140-400) K/mcL MPV 13.8 H (9.4-12.4) fL Immature Gran % 0.6 (0-4) % Seg Neutrophils % 80.4 % Lymphocytes % 10.2 % Monocytes % 8.1 % Eosinophils % 0.6 % Basophils % 0.1 % Neutrophils # 5.7 (1.6-8.9) K/mcL Lymphocytes # 0.7 (0.6-4.6) K/mcL Monocytes # 0.6 (0.0-1.3) K/mcL Eosinophils # 0.0 (0.0-0.6) K/mcL Basophils # 0.0 (0.0-0.2) K/mcL Immature Plt Fraction 18.3 H (1.1-6.1) % Sodium 136 (136-145) mEq/L Potassium 4.1 (3.5-5.1) mEq/L Chloride 99 (98-107) mEq/L Carbon Dioxide 26 (23-29) mEq/L BUN 31 H (8-23) mg/dL Creatinine 1.19 (0.60-1.20) mg/dL Est GFR ( Amer) 53 L (> 60) Est GFR (Non-Af Amer) 43 L (> 60) BUN/Creatinine Ratio 26 (6-26) Glucose 79 (70-105) mg/dL Calculated Osmolality 287 (280-300) Calcium 10.1 (8.6-10.3) mg/dL Total Bilirubin 1.1 H (0.3-1.0) mg/dL AST 12 L (13-39) Units/L ALT 3 L (7-52) Units/L Alkaline Phosphatase 85 (34-104) Units/L Troponin I 0.05 H* (< 0.04) ng/mL Serum Total Protein 6.9 (6.4-8.9) g/dL Albumin 3.5 (3.5-5.7) g/dL Globulin 3.4 (2.4-3.5) g/dL Albumin/Globulin Ratio 1.0 L (1.1-2.2) TSH 0.672 (0.340-5.600) mcIU/mL Free T4 1.96 (0.70-2.00) ng/dl Free T3 2.44 L (2.50-3.90) pg/mL Urine Color Yellow (Yellow) Urine Clarity Turbid A (Clear) Urine pH 6.5 (5.0-8.0) pH Units Ur Specific [place] 1.017 (1.010-1.025) Urine Protein 100 H (Neg-Trace) mg/dL Urine Glucose (UA) Normal (Normal) mg/dL Urine Ketones Trace H (Negative) mg/dL Urine Blood Moderate H (Negative) Urine Nitrite Negative (Negative) Urine Bilirubin Negative (Negative) Urine Urobilinogen Normal (Normal) mg/dL Ur Leukocyte Esterase Large H (Negative) Urine Microscopic RBC Present (0-3) per hpf Urine Microscopic WBC TNTC H (0-3) per hpf Ur Squamous Epith Cells Present (None-Few) per lpf Urine Bacteria Many H (None-Few) per hpf Ur Culture Indicated? YES A (NO) - Radiology Data Radiology results reviewed: Yes I reviewed the patient's radiology results. Chest X-Ray 03/25/18 09:54 IMPRESSION: Blunting of left costophrenic angle could represent a left pleural effusion. Otherwise, stable chest D/ / Tc Núñez MD / Tc Núñez MD Interpreting Provider: Tc Núñez MD - EKG Data EKG #1 EKG attestation: Yes I reviewed and interpreted this EKG. EKG results narrative: 03/25/2018 at 09:55. A. fib. Heart rate 85. QTc 431. Normal axis. No acute ST elevation or depression. S.B.A.R. - S.B.A.R. Situation: Demographics Background: Presenting Complaint, Relevant PMH, Meds, & Allergies Assessment: Vital Signs, Course and respsone to treatment, Exam Concerns, Patient/Family Expectation, Pertinant Lab Results Recommendation: Barrier(s) to disposition, Recommendation based on pending studies, treatments, or consults S.B.A.R. Report Given to: Dr. Rivero
[2018-03-25] MEDS ORDERED: 0.9 % Sodium Chloride 1,000 ML IVC ONE (10:06)
--- NOTE | 2018-03-25 10:06 | Emergency Department Note ---
Disposition Clinical Impression: UTI (urinary tract infection), Failure to thrive, Decreased oral intake, Dehydration Disposition: Admitted As Inpatient Condition: Fair General Adult HPI - General Chief complaint: ED General Medical Stated complaint: weakness Time Seen by Provider: 03/25/18 09:47 Source: patient Mode of arrival: ambulatory Limitations: no limitations Nursing Notes Reviewed: Yes Vital Signs Reviewed: Yes - History of Present Illness Pain Scale: 0 - Related Data Home Medications Medication Instructions Recorded Confirmed Acetaminophen [Tylenol] 650 mg PO Q6HR PRN 09/14/15 02/28/18 Budesonide/Formoterol 160/4.5 2 puff IH BIDR 09/14/15 02/28/18 [Symbicort 160/4.5] Calcitriol 1 mcg PO Q48H 09/14/15 02/28/18 Docusate [Colace] 100 mg PO BID 09/14/15 02/28/18 Folic Acid 1 mg PO DAILY 09/14/15 02/28/18 Magnesium Oxide [Magnesium] 400 mg PO DAILY 09/14/15 02/28/18 Memantine HCl [Namenda Xr] 28 mg PO DAILY 09/14/15 02/28/18 Metoprolol [Lopressor] 25 mg PO BID 09/14/15 02/28/18 Mirtazapine [Remeron] 7.5 mg PO HS 09/14/15 02/28/18 Nitrofurantoin Macrocrystal 50 mg PO HS 09/14/15 02/28/18 [Macrodantin] Omeprazole [PriLOSEC] 20 mg PO DAILY 09/14/15 02/28/18 Paroxetine HCl 10 mg PO DAILY 09/14/15 02/28/18 Azelastine 0.1% Nasal [place] 2 spr NS BID 05/19/17 02/28/18 [Astelin] Calcium Carbonate/Vitamin D3 1,500 mg PO BID 05/19/17 02/28/18 [Calcium 500 mg Chewable Tablet] Carbidopa/Levodopa ER 50/200 1 tab PO BID 05/19/17 02/28/18 [Sinemet ER 50-200 Tab] Lactobacillus Acidophilus 1 cap PO BID 05/19/17 02/28/18 [Acidophilus] Levothyroxine Sodium [Levoxyl] 175 mcg PO DAILY 05/19/17 02/28/18 Magnesium Hydroxide [Milk of 30 ml PO DAILY PRN 05/19/17 02/28/18 Magnesia] Na Phos,M-B/Na Phos,Di-Ba [Fleet 1 each RC Q48H PRN 05/19/17 02/28/18 Enema Extra] Albuterol Sulfate [Ventolin Hfa] 18 gm IH AD 05/24/17 02/28/18 Levothyroxine [Synthroid] 150 mcg PO DAILY 02/28/18 02/28/18 Quetiapine Fumarate [SEROquel] 12.5 mg PO BID 02/28/18 02/28/18 Allergies Allergy/AdvReac Type Severity Reaction Status Date / Time Amoxicillin Allergy unknown Verified 02/28/18 15:07 atropine Allergy unknown Verified 02/28/18 15:07 Diphenoxylate Allergy unknown Verified 02/28/18 15:07 enalapril Allergy unknown Verified 02/28/18 15:07 esomeprazole Allergy inknown Verified 02/28/18 15:07 Hydromorphone Allergy unknown Verified 02/28/18 15:07 Iodinated Contrast- Oral and Allergy unknown Verified 02/28/18 15:07 IV Dye [Iodinated Contrast Media - IV Dye] nitrofurantoin Allergy unknown Verified 02/28/18 15:07 Penicillins Allergy unkown Verified 02/28/18 15:07 piroxicam Allergy unknown Verified 02/28/18 15:07 Sulfa (Sulfonamide Allergy unknown Verified 02/28/18 15:07 Antibiotics) Past Medical History - Past Medical History Medical history: Reports: dementia, GERD, hypertension, thyroid disease, other Surgical history: Reports: no surgical history Psychiatric history: Reports: anxiety, depression - Social History Smoking Status: Never smoker Smokeless Tobacco Status: No Alcohol use: Reports: none Drug use: Reports: none Physical Exam - General Limitations: no limitations General appearance: alert, in no apparent distress Course Vital Signs Temperature 97.8 F 03/25/18 09:51 Pulse Rate 81 03/25/18 09:51 Respiratory Rate 18 03/25/18 09:51 Blood Pressure 105/84 03/25/18 09:51 O2 Sat by Pulse Oximetry 91 03/25/18 09:51 Temperature 97.8 F 03/25/18 09:51 Pulse Rate 93 03/25/18 11:52 Respiratory Rate 16 03/25/18 11:52 Blood Pressure 100/79 03/25/18 11:52 O2 Sat by Pulse Oximetry 99 03/25/18 11:52 Oxygen Delivery Oxygen Delivery Room Air Medical Decision Making - MDM Narrative Medical decision making narrative: Chest X-Ray 03/25/18 09:54 IMPRESSION: Blunting of left costophrenic angle could represent a left pleural effusion. Otherwise, stable chest D/ / Tc Núñez MD / Tc Núñez MD Interpreting Provider: Tc Núñez MD 1212 hrs.: Patient does have an elevated troponin she denies chest pain. Regular bring her into the hospital with elevated troponin to thrive dehydration. Hospitalist as accepted for admission. - Lab Data Result diagrams: 03/25/18 09:54 03/25/18 09:54 Lab Results 03/25/18 03/25/18 03/25/18 Range/Units 09:54 09:54 11:23 WBC 7.1 (4.3-11.1) K/mcL RBC 4.51 (3.82-4.97) M/mcL Hgb 13.3 (11.5-15.4) g/dL Hct 42.3 (35.3-44.9) % MCV 93.8 (83.0-100.0) fL MCH 29.5 (28.0-33.3) pg MCHC 31.4 L (31.6-35.5) g/dL RDW 15.5 H (11.5-14.5) % Plt Count 78 L (140-400) K/mcL MPV 13.8 H (9.4-12.4) fL Immature Gran % 0.6 (0-4) % Seg Neutrophils % 80.4 % Lymphocytes % 10.2 % Monocytes % 8.1 % Eosinophils % 0.6 % Basophils % 0.1 % Neutrophils # 5.7 (1.6-8.9) K/mcL Lymphocytes # 0.7 (0.6-4.6) K/mcL Monocytes # 0.6 (0.0-1.3) K/mcL Eosinophils # 0.0 (0.0-0.6) K/mcL Basophils # 0.0 (0.0-0.2) K/mcL Immature Plt Fraction 18.3 H (1.1-6.1) % Sodium 136 (136-145) mEq/L Potassium 4.1 (3.5-5.1) mEq/L Chloride 99 (98-107) mEq/L Carbon Dioxide 26 (23-29) mEq/L BUN 31 H (8-23) mg/dL Creatinine 1.19 (0.60-1.20) mg/dL Est GFR ( Amer) 53 L (> 60) Est GFR (Non-Af Amer) 43 L (> 60) BUN/Creatinine Ratio 26 (6-26) Glucose 79 (70-105) mg/dL Calculated Osmolality 287 (280-300) Calcium 10.1 (8.6-10.3) mg/dL Total Bilirubin 1.1 H (0.3-1.0) mg/dL AST 12 L (13-39) Units/L ALT 3 L (7-52) Units/L Alkaline Phosphatase 85 (34-104) Units/L Troponin I 0.05 H* (< 0.04) ng/mL Serum Total Protein 6.9 (6.4-8.9) g/dL Albumin 3.5 (3.5-5.7) g/dL Globulin 3.4 (2.4-3.5) g/dL Albumin/Globulin Ratio 1.0 L (1.1-2.2) TSH 0.672 (0.340-5.600) mcIU/mL Free T4 1.96 (0.70-2.00) ng/dl Free T3 2.44 L (2.50-3.90) pg/mL Urine Color Yellow (Yellow) Urine Clarity Turbid A (Clear) Urine pH 6.5 (5.0-8.0) pH Units Ur Specific [place] 1.017 (1.010-1.025) Urine Protein 100 H (Neg-Trace) mg/dL Urine Glucose (UA) Normal (Normal) mg/dL Urine Ketones Trace H (Negative) mg/dL Urine Blood Moderate H (Negative) Urine Nitrite Negative (Negative) Urine Bilirubin Negative (Negative) Urine Urobilinogen Normal (Normal) mg/dL Ur Leukocyte Esterase Large H (Negative) Urine Microscopic RBC Present (0-3) per hpf Urine Microscopic WBC TNTC H (0-3) per hpf Ur Squamous Epith Cells Present (None-Few) per lpf Urine Bacteria Many H (None-Few) per hpf Ur Culture Indicated? YES A (NO) Attestation Statement - Attestation Attestation: This documentation is done with the assistance of Dragon dictation. Despite efforts made to ensure accuracy, there may be inaccuracies in gas pipe layer or spelling and typographical errors. I examined this patient and my medical decision-making was reviewed with the Resident Physician. I agree with the documented findings, disposition and treatment plan as described except to the extent set forth below. Patient seen and evaluated on arrival with EMS and Dr. Washington, I agree with his evaluation and management plan, supervise care the patient's stay. Patient presents due to weakness. And failure to thrive. She has any appetite not eating or drinking for last couple days. She has no complaints hour. She has a history of dementia but she is verbal she denies any pain. [facility] and [facility] reviewed. Esvin do some lab work on her urinalysis and then reassess. She is in agreement with this plan.
[2018-03-25 10:33] LABS: Eosinophils % 0.6 %; Mean Platelet Volume 13.8 fL (9.4-12.4)
[2018-03-25 10:34] LABS: Basophils % 0.1 %; Hematocrit 42.3 % (35.3-44.9); Hemoglobin 13.3 g/dL (11.5-15.4); Immature Granulocytes % 0.6 % (0-4); Immature Platelets 18.3 % (1.1-6.1); Lymphocytes # 0.7 K/mcL (0.6-4.6); Lymphocytes % 10.2 %; Mean Corpuscular HGB Conc 31.4 g/dL (31.6-35.5); Mean Corpuscular Hemoglobin 29.5 pg (28.0-33.3); Mean Corpuscular Volume 93.8 fL (83.0-100.0); Monocytes # 0.6 K/mcL (0.0-1.3); Monocytes % 8.1 %; Neutrophils # 5.7 K/mcL (1.6-8.9); Red Blood Count 4.51 M/mcL (3.82-4.97); Red Cell Distribution Width 15.5 % (11.5-14.5); Segmented Neutrophils % 80.4 %
[2018-03-25 10:36] LABS: Platelet Count 78 K/mcL (140-400)
[2018-03-25 10:54] LABS: Albumin 3.5 g/dL (3.5-5.7); Bilirubin,Total 1.1 mg/dL (0.3-1.0); Calcium 10.1 mg/dL (8.6-10.3); Globulin 3.4 g/dL (2.4-3.5); Potassium 4.1 mEq/L (3.5-5.1); Total Protein 6.9 g/dL (6.4-8.9)
[2018-03-25 11:07] LABS: Troponin I 0.05 ng/mL (< 0.04)
[2018-03-25 11:12] LABS: Thyroid Stimulating Hormone 0.672 mcIU/mL (0.340-5.600)
[2018-03-25 11:15] LABS: Triiodothyronine (T3) Free 2.44 pg/mL (2.50-3.90)
[2018-03-25 11:41] LABS: Bilirubin,Urine Negative (Negative); Blood,Urine Moderate (Negative); Clarity,Urine Turbid (Clear); Color,Urine Yellow (Yellow); Glucose,Urine (UA) Normal (Normal); Ketones,Urine Trace mg/dL (Negative); Leukocyte Esterase,Urine Large (Negative); Nitrite,Urine Negative (Negative); PH,Urine 6.5 pH Units (5.0-8.0); Protein,Urine 100 mg/dL (Neg-Trace); Specific Gravity,Urine 1.017 (1.010-1.025); Urobilinogen,Urine Normal (Normal)
[2018-03-25 11:51] LABS: WBC,Urine TNTC per hpf (0-3)
[2018-03-25 11:52] LABS: Squamous Epithelial Cell,Urine Present per lpf (None-Few)
[2018-03-25 11:53] LABS: Bacteria,Urine Many per hpf (None-Few); RBC,Urine Present per hpf (0-3)
[2018-03-25] MEDS ORDERED: cefTRIAXone 1,000 MG in Water for inj. (sterile) 20 ML 10 ML IVP ONE (12:04)
[2018-03-25] MEDS ORDERED: Naloxone 0.4 MG/ML INJ IVP PRN (12:37)
[2018-03-25] MEDS ORDERED: 0.9 % Sodium Chloride 1,000 ML IVC SCH (12:45)
--- NOTE | 2018-03-25 13:22 | Internal Med History&Physical ---
<John Lauren P - Last Filed: 03/25/18 13:50> Date of Encounter: 03/25/18 Time of Encounter: 12:20 Internal Medicine - H&P: HPI Chief complaint: Weakness Admitted From: Long-term Nursing Facility Plans for Post Hospital Care: Transfer [facility] History of present illness: Ms. Griffin is a 82 year old female who presents from [facility] for weakness and decreased oral intake getting progressively worse over the past week. Family states she is intermittently oriented at baseline but over the past week her confusion has been increased and she has been less interactive and not eating or drinking much. Patient states she hasn't felt like eating or drinking. Denies chest pain, shortness of breath, nausea, diarrhea, or urinary symptoms. Denies any alleviating or exacerbating factors. Family states patient is on prophylactic nitrofurantoin for ecoli UTI. Family also states patient was previously on warfarin for Afib but was taken off several years ago by PCP. Past Med Surg Social Fam HX - Past Medical History Medical history: dementia, GERD, hypertension, thyroid disease, other Additional medical history: Parkinson's Psychiatric history: anxiety, depression - Past Surgical History Surgical History: no surgical history Additional surgical history: thyroidectomy - Social History Smoking Status: Never smoker Smokeless Tobacco Status: No Alcohol use: none Drug use: none - Family History Father Living Status: Hx Family Cardiac Disorders: Yes Mother Living Status: Hx Family Cardiac Disorders: Yes Internal Medicine - H&P: Meds Acetaminophen [Tylenol] 650 mg PO Q6HR PRN 09/14/15 [History] Budesonide/Formoterol 160/4.5 [Symbicort 160/4.5] 2 puff IH BIDR 09/14/15 [ History] Calcitriol 2.5 mcg PO Q48H 09/14/15 [History] Docusate [Colace] 100 mg PO BID 09/14/15 [History] Folic Acid 1 mg PO DAILY 09/14/15 [History] Magnesium Oxide [Magnesium] 400 mg PO DAILY 09/14/15 [History] Memantine HCl [Namenda Xr] 28 mg PO DAILY 09/14/15 [History] Metoprolol [Lopressor] 25 mg PO BID 09/14/15 [History] Mirtazapine [Remeron] 7.5 mg PO HS 09/14/15 [History] Omeprazole [PriLOSEC] 20 mg PO DAILY 09/14/15 [History] Paroxetine HCl 10 mg PO DAILY 09/14/15 [History] Azelastine 0.1% Nasal [place] [Astelin] 2 spr NS BID 05/19/17 [History] Carbidopa/Levodopa ER 50/200 [Sinemet ER 50-200 Tab] 1 tab PO BID 05/19/17 [ History] Lactobacillus Acidophilus [Acidophilus] 1 cap PO BID 05/19/17 [History] Magnesium Hydroxide [Milk of Magnesia] 30 ml PO DAILY PRN 05/19/17 [History] Na Phos,M-B/Na Phos,Di-Ba [Fleet Enema Extra] 1 each RC Q48H PRN 05/19/17 [ History] Albuterol Sulfate [Ventolin Hfa] 2 puff IH Q4-6H PRN 05/24/17 [History] Levothyroxine [Synthroid] 150 mcg PO DAILY 02/28/18 [History] Quetiapine Fumarate [SEROquel] 12.5 mg PO BID 02/28/18 [History] Calcium Carbonate/Vitamin D3 [Calcium 600-Vit D3 400 Tablet] 1 tab PO DAILY [History] LORazepam [Ativan] 0.5 mg PO DAILY PRN 03/25/18 [History] Tramadol HCl [Ultram] 50 - 100 mg PO TID PRN 03/25/18 [History] 3 Allergy/AdvReac Type Severity Reaction Status Date / Time Amoxicillin Allergy unknown Verified 02/28/18 15:07 atropine Allergy unknown Verified 02/28/18 15:07 Diphenoxylate Allergy unknown Verified 02/28/18 15:07 enalapril Allergy unknown Verified 02/28/18 15:07 esomeprazole Allergy inknown Verified 02/28/18 15:07 Hydromorphone Allergy unknown Verified 02/28/18 15:07 Iodinated Contrast- Oral and Allergy unknown Verified 02/28/18 15:07 IV Dye [Iodinated Contrast Media - IV Dye] nitrofurantoin Allergy unknown Verified 02/28/18 15:07 Penicillins Allergy unkown Verified 02/28/18 15:07 piroxicam Allergy unknown Verified 02/28/18 15:07 Sulfa (Sulfonamide Allergy unknown Verified 02/28/18 15:07 Antibiotics) All Systems PM: A 10-system review of systems was performed and is negative for pertinent findings except as documented above in the HPI. - Constitutional Vitals: Temp Pulse Resp BP Pulse Ox 98.4 F 90 18 117/57 97 03/25/18 13:10 03/25/18 13:10 03/25/18 13:10 03/25/18 13:10 03/25/18 13:10 Exam: General: Alert. Oriented to person and place. Skin:Normal color, no rash, no lesions. HEENT:EOM, pupils equal, round and reactive. Cardiovascular:Irregular rate, no rubs, murmurs or gallops. No JVD. Lungs:Normal breath sounds, no wheezes or crackles. Abdomen:Soft, non-tender, no rigidity. Extremities:No deformity, no edema or tenderness, no joint swelling or clubbing. Neurological:Normal cognition and motor skills for patient baseline. Pulses:Carotid and radial pulses normal +2. Rest of the physical exam is non contributory Internal Med - H&P Results - Labs CBC & Chem 7: 03/25/18 09:54 03/25/18 09:54 - Assessment and plan (1) UTI (urinary tract infection) Current Visit: Yes Status: Acute Assessment and plan: On nitrofurantoin prophylactically for ecoli UTI. Will hold nitrofurantoin. ER UA shows large leukocyte esterase. Rocephin started in ER, will continue Rocephin tomorrow. Urine culture pending. Repeat labs in a.m. Qualifiers: Urinary tract infection type: site unspecified Hematuria presence: with hematuria Qualified Code(s): N39.0 - Urinary tract infection, site not specified; R31.9 - Hematuria, unspecified (2) Dehydration Current Visit: Yes Status: Acute Assessment and plan: Fluids started in ER. Continue fluids at 100 ml/hr for 1 liter. Repeat labs in a.m. (3) Failure to thrive Current Visit: Yes Status: Acute Assessment and plan: Nutrition consult ordered for supplementation recommendations. Qualifiers: Failure to thrive age range: in adult Qualified Code(s): R62.7 - Adult failure to thrive (4) Elevated troponin Current Visit: Yes Status: Acute Assessment and plan: Elevated troponin in ER. Serial troponins ordered. - Time Spent With Patient Total time spent is greater than 50% in coordination of care (as documented) at patient's floor/unit and/or counseling patient: <Cindy Rivero - Last Filed: 03/25/18 14:49> Date of Encounter: 03/25/18 Internal Medicine - H&P: HPI History of present illness: Ms. Griffin is a 82 year old female All Systems PM: A 10-system review of systems was performed and is negative for pertinent findings except as documented above in the HPI. - Constitutional Vitals: Temp Pulse Resp BP Pulse Ox 98.4 F 90 18 117/57 97 03/25/18 13:10 03/25/18 13:10 03/25/18 13:10 03/25/18 13:10 03/25/18 13:10 Internal Med - H&P Results - Labs CBC & Chem 7: 03/25/18 09:54 03/25/18 09:54 - Attending Attestation I have performed a face- to face examination of this patient and participated in formulation of robbins components of Assessment and plan with the SWATCH FOLDER. 82-year-old female who was brought in from home for altered mental status, failure to thrive. Apparently the family at bedside she has not been eating well she does have a history of dementia and Parkinson's disease at the baseline. On examination she is able to open her eyes to questioning and nods her head but does not talk much. Abdomen is soft nontender nondistended and cardiovascular sounds are normal. Neurological examination could not be completed because of patient mentation Agree with the assessment and plan as set forth by the nurse practitioner. She does have urinary tract infection and went to the family she does get worse and starts behaving like this when she has a UTI. In the past she has grown Escherichia coli which has been sensitive to multiple antibiotics . She had been on nitrofurantoin which clearly is not working in this situation to prevent UTIs from happening. We have started her on Rocephin and will monitor her cultures. She also has atrial fibrillation history but she is not on any anticoagulation according to the family she was taken off anticoagulants per her primary care physician rightly so for her dementia and being a fall risk. I would hesitate to start her back on anticoagulation. Also needs a nutrition consult and physical therapy and occupational therapy consult when she gets better. At this point her metabolic encephalopathy most likely is because of underlying infection, progressive dementia as well as urinary tract infection. - Assessment and plan (1) UTI (urinary tract infection) Current Visit: Yes Status: Acute Qualifiers: Urinary tract infection type: site unspecified Hematuria presence: with hematuria Qualified Code(s): N39.0 - Urinary tract infection, site not specified; R31.9 - Hematuria, unspecified (2) Failure to thrive Current Visit: Yes Status: Acute Qualifiers: Failure to thrive age range: in adult Qualified Code(s): R62.7 - Adult failure to thrive (3) Dehydration Current Visit: Yes Status: Acute (4) Elevated troponin Current Visit: Yes Status: Acute - Time Spent With Patient Total time spent is greater than 50% in coordination of care (as documented) at patient's floor/unit and/or counseling patient:
[2018-03-25] MEDS ORDERED: Acetaminophen 325 MG TABLET PO PRN (13:37)
[2018-03-25] MEDS ORDERED: CALCITRIOL PO SCH (13:45)
--- NOTE | 2018-03-25 16:16 | Electrocardiograph Report ---
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
[2018-03-25] MEDS: CALCITRIOL 0.5 MCG PO SCH (16:39)
[2018-03-25] MEDS: Budesonide/Formoterol 160/4.5 1 PUFF INH IH SCH (19:50)
[2018-03-25] MEDS: Mirtazapine 15 MG TABLET PO SCH (20:26)
[2018-03-25] MEDS: Lactobacillus 1 EACH CAP.SPRINK PO SCH (20:26)
[2018-03-25] MEDS: Carbidopa/Levodopa ER 50/200 TABLET PO SCH (20:26)
[2018-03-25] MEDS ORDERED: 0.9 % Sodium Chloride 500 ML IVC ONE (23:16)
[2018-03-25] MEDS: Azelastine 0.1% Nasal Spray 30 ML BOTTLE NS SCH (23:17)
[2018-03-26] MEDS ORDERED: 0.9 % Sodium Chloride 1,000 ML IVC ONE (01:26)
[2018-03-26 02:19] LABS: Basophils % 0.2 %; Immature Granulocytes % 0.3 % (0-4)
[2018-03-26 02:21] LABS: Eosinophils % 0.2 %; Hematocrit 34.2 % (35.3-44.9); Hemoglobin 10.5 g/dL (11.5-15.4); Immature Platelets 13.5 % (1.1-6.1); Lymphocytes # 0.3 K/mcL (0.6-4.6); Lymphocytes % 5.6 %; Mean Corpuscular HGB Conc 30.7 g/dL (31.6-35.5); Mean Corpuscular Hemoglobin 29.1 pg (28.0-33.3); Mean Corpuscular Volume 94.7 fL (83.0-100.0); Mean Platelet Volume 13.4 fL (9.4-12.4); Monocytes # 0.5 K/mcL (0.0-1.3); Monocytes % 7.6 %; Neutrophils # 5.1 K/mcL (1.6-8.9); Red Blood Count 3.61 M/mcL (3.82-4.97); Red Cell Distribution Width 15.1 % (11.5-14.5); Segmented Neutrophils % 86.1 %
[2018-03-26 02:24] LABS: Platelet Count 69 K/mcL (140-400)
[2018-03-26 02:26] LABS: BUN/Creatinine Ratio 27 (6-26); Blood Urea Nitrogen 26 mg/dL (8-23); Calcium 8.3 mg/dL (8.6-10.3); Carbon Dioxide 21 mEq/L (23-29); Chloride 109 mEq/L (98-107); Glucose 88 mg/dL (70-105); Osmolality,Calculated 294 (280-300); Potassium 3.6 mEq/L (3.5-5.1); Sodium 140 mEq/L (136-145); eGFR For Non-African Americans 56 (> 60)
[2018-03-26] MEDS ORDERED: 0.9 % Sodium Chloride 500 ML IV ONE (05:39)
[2018-03-26] MEDS: Budesonide/Formoterol 160/4.5 1 PUFF INH IH SCH ×2 (07:30→19:48)
[2018-03-26] MEDS ORDERED: NON-FORMULARY MEDICATION 1 EACH EACH (Calcium Carbonate/Vitamin D3 [Calcium 600-Vit D3 400 PO SCH (09:00)
[2018-03-26] MEDS: cefTRIAXone 1,000 MG in Water for inj. (sterile) 20 ML 10 ML IVP SCH (09:42)
[2018-03-26] MEDS: Lactobacillus 1 EACH CAP.SPRINK PO SCH ×2 (09:43→20:50)
[2018-03-26] MEDS: Magnesium Oxide 400 MG TABLET PO SCH (09:43)
[2018-03-26] MEDS: Carbidopa/Levodopa ER 50/200 TABLET PO SCH ×2 (09:44→20:42)
[2018-03-26] MEDS: Folic Acid 1 MG TABLET PO SCH (09:44)
[2018-03-26] MEDS: Cholecalciferol (D-3) 1,000 UNIT TABLET PO SCH (09:44)
[2018-03-26] MEDS: Azelastine 0.1% Nasal Spray 30 ML BOTTLE NS SCH ×2 (09:45→20:40)
--- NOTE | 2018-03-26 10:18 | Internal Med Progress Note ---
Hospitalist Progress Note - Encounter Date of Encounter: 03/26/18 Time of Encounter: 10:18 - Subjective Interval History: Patient seen and examined at bedside She is alert and oriented to name and place.Denies any pain or discomfort - Exam Vitals: Temp Pulse Resp BP Pulse Ox 97.5 F L 79 18 91/61 97 03/26/18 06:56 03/26/18 06:56 03/26/18 07:32 03/26/18 06:56 03/26/18 07:32 Exam: General: Alert and oriented x2 Skin:Normal color, no rash, no lesions. HEENT:EOM, pupils equal, round and reactive. Cardiovascular:Normal S1 & S2, no rubs, murmurs or gallops. No JVD. Pulse regular. Lungs:Normal breath sounds, no wheezes or crackles. Abdomen:Soft, non-tender, no rigidity. Extremities:No deformity, no edema or tenderness, no joint swelling or clubbing. Neurological:Normal cognition and motor skills. Pulses:Carotid and radial pulses normal +2. Rest of the physical exam is non contributory. - Assessment and Plan (1) UTI (urinary tract infection) Current Visit: Yes Status: Acute Assessment and Plan: On nitrofurantoin prophylactically for ecoli UTI. Will hold nitrofurantoin. ER UA shows large leukocyte esterase. Rocephin started in ER, will continue Rocephin-pending urine culture (2) Failure to thrive Current Visit: Yes Status: Acute Assessment and Plan: Nutrition consult ordered for supplementation recommendations- ensure Will closely monitor I/O if cont not to eat will consider possible Megace - (3) Dehydration Current Visit: Yes Status: Acute Assessment and Plan: closely monitor I/O Continue fluids at 75ml/hr - dt poor oral intake Monitor labs and replace electrolytes . (4) Elevated troponin Current Visit: Yes Status: Acute Assessment and Plan: Elevated troponin in ER. Serial troponins ordered flat adynamic suspect rt to infection will monitor (5) Celiac disease Current Visit: No Status: Chronic Assessment and Plan: 1hx of celiac disease- nutrition consulted, gluten free diet (6) Hypothyroidism Current Visit: No Status: Chronic Assessment and Plan: S/P thyroid surgery and parathyroid removed . On calcitrol was hospitalized with hypercalcemia around December 2014 and calcitriol dose reduced to 0.5 mg daily. monitor PTH and calcium level (7) Thrombocytopenia Current Visit: No Status: Chronic Assessment and Plan: this is chronic - monitor for s/sx of bleeding - Time Spent with Patient Total time spent is greater than 50% in coordination of care (as documented) at patient's floor/unit and/or counseling patient: Internal Medicine: Result - Labs CBC & Chem 7: 03/26/18 01:48 03/26/18 01:48 Labs: Short CBC 03/26/18 Range/Units 01:48 WBC 5.9 (4.3-11.1) K/mcL Hgb 10.5 L D (11.5-15.4) g/dL Hct 34.2 L (35.3-44.9) % Plt Count 69 L (140-400) K/mcL Neutrophils # 5.1 (1.6-8.9) K/mcL BMP 03/26/18 01:48 Sodium 140 Potassium 3.6 Chloride 109 H Carbon Dioxide 21 L BUN 26 H Creatinine 0.95 Glucose 88 Calcium 8.3 L Cardiac Enzymes 03/26/18 Range/Units 01:48 Troponin I 0.05 H* (< 0.04) ng/mL - VTE Documentation of Mechanical Device: Intermittent pneumatic compression device Consult Discharge Plan - Plan Referrals: Braden Garibay MD [Primary Care Provider] - (1) UTI (urinary tract infection) Qualifiers: Urinary tract infection type: site unspecified Hematuria presence: with hematuria Qualified Code(s): N39.0 - Urinary tract infection, site not specified; R31.9 - Hematuria, unspecified (2) Failure to thrive Qualifiers: Failure to thrive age range: in adult Qualified Code(s): R62.7 - Adult failure to thrive (6) Hypothyroidism Qualifiers: Hypothyroidism type: unspecified Qualified Code(s): E03.9 - Hypothyroidism, unspecified
[2018-03-26] MEDS: 0.9 % Sodium Chloride 1,000 ML IVC SCH (17:09)
[2018-03-26] MEDS: Mirtazapine 15 MG TABLET PO SCH (20:43)
[2018-03-27 06:08] LABS: Basophils % 0.2 %; Red Cell Distribution Width 15.6 % (11.5-14.5); Segmented Neutrophils % 84.8 %
[2018-03-27 06:10] LABS: Eosinophils # 0.1 K/mcL (0.0-0.6); Eosinophils % 1.1 %; Hematocrit 33.9 % (35.3-44.9); Hemoglobin 10.5 g/dL (11.5-15.4); Immature Granulocytes % 0.9 % (0-4); Immature Platelets 9.8 % (1.1-6.1); Lymphocytes # 0.3 K/mcL (0.6-4.6); Lymphocytes % 6.3 %; Mean Corpuscular Hemoglobin 29.7 pg (28.0-33.3); Mean Platelet Volume 13.1 fL (9.4-12.4); Monocytes # 0.4 K/mcL (0.0-1.3); Monocytes % 6.7 %; Neutrophils # 4.6 K/mcL (1.6-8.9); Red Blood Count 3.53 M/mcL (3.82-4.97)
[2018-03-27 06:12] LABS: Platelet Count 75 K/mcL (140-400)
[2018-03-27 06:33] LABS: BUN/Creatinine Ratio 26 (6-26); Blood Urea Nitrogen 19 mg/dL (8-23); Calcium 8.3 mg/dL (8.6-10.3); Carbon Dioxide 20 mEq/L (23-29); Chloride 114 mEq/L (98-107); Glucose 162 mg/dL (70-105); Osmolality,Calculated 302 (280-300); Potassium 3.1 mEq/L (3.5-5.1); Sodium 143 mEq/L (136-145); eGFR For Non-African Americans > 60 (> 60)
[2018-03-27] MEDS: Budesonide/Formoterol 160/4.5 1 PUFF INH IH SCH ×2 (07:38→20:11)
[2018-03-27] MEDS ORDERED: Potassium Chloride 40 MEQ, Lidocaine 1% 2 ML in D5% in Water 500 ML IVPB ONE (07:47)
[2018-03-27] MEDS: 0.9 % Sodium Chloride 1,000 ML IVC SCH ×3 (08:41→22:59)
[2018-03-27] MEDS: cefTRIAXone 1,000 MG in Water for inj. (sterile) 20 ML 10 ML IVP SCH (08:42)
[2018-03-27] MEDS: Folic Acid 1 MG TABLET PO SCH (08:43)
[2018-03-27] MEDS: Magnesium Oxide 400 MG TABLET PO SCH (08:43)
[2018-03-27] MEDS: Cholecalciferol (D-3) 1,000 UNIT TABLET PO SCH (08:43)
[2018-03-27] MEDS: Carbidopa/Levodopa ER 50/200 TABLET PO SCH ×2 (08:43→20:33)
[2018-03-27] MEDS: Lactobacillus 1 EACH CAP.SPRINK PO SCH ×2 (08:43→20:33)
[2018-03-27] MEDS: Azelastine 0.1% Nasal Spray 30 ML BOTTLE NS SCH ×2 (08:45→20:32)
[2018-03-27] MEDS: CALCITRIOL 0.5 MCG PO SCH (09:49)
--- NOTE | 2018-03-27 10:10 | Internal Med Progress Note ---
Hospitalist Progress Note - Encounter Date of Encounter: 03/27/18 Time of Encounter: 10:09 - Subjective Interval History: Patient seen and examined at bedside She is alert and oriented to name and place. She has had a poor appetite did discuss with the patient whether or not she has poor appetite or nausea. Patient states that she only likes certain foods. Inform nursing staff to order something that would appeal the patient in order to get her to eat. - Exam Vitals: Temp Pulse Resp BP Pulse Ox 97.6 F 110 16 115/82 99 03/27/18 06:44 03/27/18 06:44 03/27/18 07:40 03/27/18 06:44 03/27/18 07:40 Exam: General: Alert and oriented x2 Skin:Normal color, no rash, no lesions. HEENT:EOM, pupils equal, round and reactive. Cardiovascular:Normal S1 & S2, no rubs, murmurs or gallops. No JVD. Pulse regular. Lungs:Normal breath sounds, no wheezes or crackles. Abdomen:Soft, non-tender, no rigidity. Extremities:No deformity, no edema or tenderness, no joint swelling or clubbing. Neurological:Normal cognition and motor skills. Pulses:Carotid and radial pulses normal +2. Rest of the physical exam is non contributory. - Assessment and Plan (1) UTI (urinary tract infection) Current Visit: Yes Status: Acute Assessment and Plan: On nitrofurantoin prophylactically for ecoli UTI. Will hold nitrofurantoin. ER UA shows large leukocyte esterase. Urine culture growing Proteus mirabilis E coli-sensitive to Rocephin which we will continue (2) Failure to thrive Current Visit: Yes Status: Acute Assessment and Plan: Nutrition consult ordered for supplementation recommendations- ensure Patient states she does not have an appetite she has been refusing pills however will take him with much coaxing and in applesauce Will closely monitor I/O if cont not to eat will consider possible Megace - (3) Dehydration Current Visit: Yes Status: Acute Assessment and Plan: closely monitor I/O Continue fluids at 75ml/hr - dt poor oral intake Monitor labs and replace electrolytes . (4) Elevated troponin Current Visit: Yes Status: Acute Assessment and Plan: Elevated troponin in ER. Serial troponins ordered flat adynamic suspect rt to infection will monitor (5) Celiac disease Current Visit: No Status: Chronic Assessment and Plan: 1hx of celiac disease- nutrition consulted, gluten free diet (6) Hypothyroidism Current Visit: No Status: Chronic Assessment and Plan: S/P thyroid surgery and parathyroid removed . On calcitrol was hospitalized with hypercalcemia around December 2014 and calcitriol dose reduced to 0.5 mg daily. monitor PTH and calcium level (7) Thrombocytopenia Current Visit: No Status: Chronic Assessment and Plan: this is chronic - monitor for s/sx of bleeding - Time Spent with Patient Total time spent is greater than 50% in coordination of care (as documented) at patient's floor/unit and/or counseling patient: Internal Medicine: Result - Labs CBC & Chem 7: 03/27/18 05:32 03/27/18 05:32 Labs: Short CBC 03/27/18 Range/Units 05:32 WBC 5.4 (4.3-11.1) K/mcL Hgb 10.5 L (11.5-15.4) g/dL Hct 33.9 L (35.3-44.9) % Plt Count 75 L (140-400) K/mcL Neutrophils # 4.6 (1.6-8.9) K/mcL BMP 03/27/18 05:32 Sodium 143 Potassium 3.1 L Chloride 114 H Carbon Dioxide 20 L BUN 19 Creatinine 0.73 Glucose 162 H Calcium 8.3 L Cardiac Enzymes 03/26/18 Range/Units 10:26 Troponin I 0.05 H* (< 0.04) ng/mL - VTE Documentation of Mechanical Device: Intermittent pneumatic compression device Consult Discharge Plan - Plan Referrals: Braden Garibay MD [Primary Care Provider] - (1) UTI (urinary tract infection) Qualifiers: Urinary tract infection type: site unspecified Hematuria presence: with hematuria Qualified Code(s): N39.0 - Urinary tract infection, site not specified; R31.9 - Hematuria, unspecified (2) Failure to thrive Qualifiers: Failure to thrive age range: in adult Qualified Code(s): R62.7 - Adult failure to thrive (6) Hypothyroidism Qualifiers: Hypothyroidism type: unspecified Qualified Code(s): E03.9 - Hypothyroidism, unspecified
[2018-03-27] MEDS: Mirtazapine 15 MG TABLET PO SCH (20:33)
[2018-03-28 04:18] LABS: Basophils % 0.2 %; Mean Corpuscular HGB Conc 31.5 g/dL (31.6-35.5); Mean Corpuscular Hemoglobin 29.6 pg (28.0-33.3); Mean Corpuscular Volume 93.9 fL (83.0-100.0)
[2018-03-28 04:20] LABS: Eosinophils # 0.1 K/mcL (0.0-0.6); Eosinophils % 1.7 %; Hematocrit 35.2 % (35.3-44.9); Hemoglobin 11.1 g/dL (11.5-15.4); Immature Platelets 10.9 % (1.1-6.1); Lymphocytes # 0.6 K/mcL (0.6-4.6); Lymphocytes % 13.4 %; Mean Platelet Volume 12.9 fL (9.4-12.4); Monocytes # 0.4 K/mcL (0.0-1.3); Monocytes % 7.7 %; Red Blood Count 3.75 M/mcL (3.82-4.97); Red Cell Distribution Width 15.7 % (11.5-14.5)
[2018-03-28 04:22] LABS: Neutrophils # 3.7 K/mcL (1.6-8.9)
[2018-03-28 04:23] LABS: Platelet Count 60 K/mcL (140-400)
[2018-03-28 04:48] LABS: BUN/Creatinine Ratio 20 (6-26); Blood Urea Nitrogen 14 mg/dL (8-23); Calcium 8.6 mg/dL (8.6-10.3); Carbon Dioxide 24 mEq/L (23-29); Chloride 112 mEq/L (98-107); Glucose 100 mg/dL (70-105); Osmolality,Calculated 295 (280-300); Potassium 3.9 mEq/L (3.5-5.1); Sodium 142 mEq/L (136-145); eGFR For Non-African Americans > 60 (> 60)
[2018-03-28] MEDS: Budesonide/Formoterol 160/4.5 1 PUFF INH IH SCH ×2 (07:32→20:32)
[2018-03-28] MEDS: Azelastine 0.1% Nasal Spray 30 ML BOTTLE NS SCH ×2 (08:42→20:43)
[2018-03-28] MEDS: Cholecalciferol (D-3) 1,000 UNIT TABLET PO SCH (08:42)
[2018-03-28] MEDS: cefTRIAXone 1,000 MG in Water for inj. (sterile) 20 ML 10 ML IVP SCH (08:42)
[2018-03-28] MEDS: Magnesium Oxide 400 MG TABLET PO SCH (08:43)
[2018-03-28] MEDS: Lactobacillus 1 EACH CAP.SPRINK PO SCH ×2 (08:43→20:44)
[2018-03-28] MEDS: Carbidopa/Levodopa ER 50/200 TABLET PO SCH ×2 (08:43→20:45)
[2018-03-28] MEDS: Folic Acid 1 MG TABLET PO SCH (08:44)
--- NOTE | 2018-03-28 09:45 | Internal Med Progress Note ---
Hospitalist Progress Note - Encounter Date of Encounter: 03/28/18 Time of Encounter: 09:45 - Subjective Interval History: Patient seen and examined at bedside She is alert and oriented to name and place. She has had a poor appetite, however she does show interest in food, we will have nursing assist patient with feeding and change diet to mechanical soft since she doesn't have any dentures. - Exam Vitals: Temp Pulse Resp BP Pulse Ox 97.7 F 109 18 118/85 93 03/28/18 07:19 03/28/18 07:19 03/28/18 07:34 03/28/18 07:19 03/28/18 07:34 Exam: General: Alert and oriented x2 Skin:Normal color, no rash, no lesions. HEENT:EOM, pupils equal, round and reactive. Cardiovascular:Normal S1 & S2, no rubs, murmurs or gallops. No JVD. Pulse regular. Lungs:Normal breath sounds, no wheezes or crackles. Abdomen:Soft, non-tender, no rigidity. Extremities:No deformity, no edema or tenderness, no joint swelling or clubbing. Neurological:Normal cognition and motor skills. Pulses:Carotid and radial pulses normal +2. Rest of the physical exam is non contributory. - Assessment and Plan (1) UTI (urinary tract infection) Current Visit: Yes Status: Acute Assessment and Plan: On nitrofurantoin prophylactically for ecoli UTI. Will hold nitrofurantoin. ER UA shows large leukocyte esterase. Urine culture growing Proteus mirabilis E coli-sensitive to Rocephin (day 3) which we will continue (2) Failure to thrive Current Visit: Yes Status: Acute Assessment and Plan: Nutrition consult ordered for supplementation recommendations- ensure Patient states she does not have an appetite she has been refusing pills however will take him with much coaxing and in applesauce Will closely monitor I/O if cont not to eat will consider possible Megace - will have nursing assist with feeding - mechanical soft (3) Dehydration Current Visit: Yes Status: Acute Assessment and Plan: closely monitor I/O Continue fluids at 75ml/hr - dt poor oral intake Monitor labs and replace electrolytes . (4) Elevated troponin Current Visit: Yes Status: Acute Assessment and Plan: Elevated troponin in ER. Serial troponins ordered flat adynamic suspect rt to infection will monitor (5) Celiac disease Current Visit: No Status: Chronic Assessment and Plan: 1hx of celiac disease- nutrition consulted, gluten free diet (6) Hypothyroidism Current Visit: No Status: Chronic Assessment and Plan: S/P thyroid surgery and parathyroid removed . On calcitrol was hospitalized with hypercalcemia around December 2014 and calcitriol dose reduced to 0.5 mg daily. monitor PTH and calcium level (7) Thrombocytopenia Current Visit: No Status: Chronic Assessment and Plan: this is chronic - monitor for s/sx of bleeding - Time Spent with Patient Total time spent is greater than 50% in coordination of care (as documented) at patient's floor/unit and/or counseling patient: Internal Medicine: Result - Labs CBC & Chem 7: 03/28/18 04:00 03/28/18 04:00 Labs: Short CBC 03/28/18 Range/Units 04:00 WBC 4.8 (4.3-11.1) K/mcL Hgb 11.1 L (11.5-15.4) g/dL Hct 35.2 L (35.3-44.9) % Plt Count 60 L (140-400) K/mcL Neutrophils # 3.7 (1.6-8.9) K/mcL BMP 03/28/18 04:00 Sodium 142 Potassium 3.9 D Chloride 112 H Carbon Dioxide 24 BUN 14 Creatinine 0.70 Glucose 100 Calcium 8.6 - VTE Documentation of Mechanical Device: Intermittent pneumatic compression device Consult Discharge Plan - Plan Referrals: Braden Garibay MD [Primary Care Provider] - (1) UTI (urinary tract infection) Qualifiers: Urinary tract infection type: site unspecified Hematuria presence: with hematuria Qualified Code(s): N39.0 - Urinary tract infection, site not specified; R31.9 - Hematuria, unspecified (2) Failure to thrive Qualifiers: Failure to thrive age range: in adult Qualified Code(s): R62.7 - Adult failure to thrive (6) Hypothyroidism Qualifiers: Hypothyroidism type: unspecified Qualified Code(s): E03.9 - Hypothyroidism, unspecified
[2018-03-28] MEDS: Megestrol Acetate 400 MG/10 ML UDC PO SCH (10:53)
[2018-03-28] MEDS: Mirtazapine 15 MG TABLET PO SCH (20:44)
[2018-03-29 06:08] LABS: Hemoglobin 10.4 g/dL (11.5-15.4); Mean Corpuscular Hemoglobin 29.4 pg (28.0-33.3); Red Blood Count 3.54 M/mcL (3.82-4.97)
[2018-03-29 06:10] LABS: Basophils % 0.5 %; Eosinophils # 0.1 K/mcL (0.0-0.6); Eosinophils % 2.7 %; Hematocrit 33.3 % (35.3-44.9); Immature Granulocytes % 1.9 % (0-4); Immature Platelets 12.5 % (1.1-6.1); Lymphocytes # 0.5 K/mcL (0.6-4.6); Lymphocytes % 13.3 %; Mean Corpuscular HGB Conc 31.2 g/dL (31.6-35.5); Mean Corpuscular Volume 94.1 fL (83.0-100.0); Mean Platelet Volume 13.2 fL (9.4-12.4); Monocytes # 0.3 K/mcL (0.0-1.3); Neutrophils # 2.8 K/mcL (1.6-8.9); Red Cell Distribution Width 15.6 % (11.5-14.5); Segmented Neutrophils % 74.6 %
[2018-03-29 06:31] LABS: Platelet Count 67 K/mcL (140-400)
[2018-03-29 07:12] LABS: BUN/Creatinine Ratio 25 (6-26); Blood Urea Nitrogen 17 mg/dL (8-23); Calcium 8.4 mg/dL (8.6-10.3); Carbon Dioxide 25 mEq/L (23-29); Chloride 112 mEq/L (98-107); Glucose 105 mg/dL (70-105); Osmolality,Calculated 296 (280-300); Potassium 3.5 mEq/L (3.5-5.1); Sodium 142 mEq/L (136-145); eGFR For Non-African Americans > 60 (> 60)
[2018-03-29] MEDS: Budesonide/Formoterol 160/4.5 1 PUFF INH IH SCH ×2 (07:45→19:49)
[2018-03-29] MEDS: Megestrol Acetate 400 MG/10 ML UDC PO SCH (08:22)
[2018-03-29] MEDS: Folic Acid 1 MG TABLET PO SCH (08:24)
[2018-03-29] MEDS: Magnesium Oxide 400 MG TABLET PO SCH (08:24)
[2018-03-29] MEDS: Carbidopa/Levodopa ER 50/200 TABLET PO SCH ×2 (08:24→20:08)
[2018-03-29] MEDS: Lactobacillus 1 EACH CAP.SPRINK PO SCH ×2 (08:24→20:08)
[2018-03-29] MEDS: Cholecalciferol (D-3) 1,000 UNIT TABLET PO SCH (08:24)
[2018-03-29] MEDS: Azelastine 0.1% Nasal Spray 30 ML BOTTLE NS SCH ×2 (08:25→20:30)
[2018-03-29] MEDS: CALCITRIOL 0.5 MCG PO SCH (08:27)
--- NOTE | 2018-03-29 15:32 | Discharge Summary ---
- NOTES TO OUTPATIENT PROVIDER Notes to Outpatient Provider: Had UTI was positive for E coli and proteus was treated with Rocephin Given IVF-. Had hypotension Metoprolol held had afib RVR and was placed back on Metoprolol at lower dosage momitor rate and adjust as needed. Poor oral intake -cont nutrition supplements and megace Date of Encounter: 03/31/18 Time of Encounter: 15:30 - Discharge Diagnosis (1) UTI (urinary tract infection) Priority: Primary Status: Resolved Qualifiers: Urinary tract infection type: site unspecified Hematuria presence: with hematuria Qualified Code(s): N39.0 - Urinary tract infection, site not specified; R31.9 - Hematuria, unspecified (2) Failure to thrive Priority: Secondary Status: Acute Qualifiers: Failure to thrive age range: in adult Qualified Code(s): R62.7 - Adult failure to thrive (3) Dehydration Priority: Secondary Status: Acute (4) Elevated troponin Priority: Secondary Status: Acute (5) Celiac disease Priority: Secondary Status: Chronic (6) Hypothyroidism Priority: Secondary Status: Chronic Qualifiers: Hypothyroidism type: unspecified Qualified Code(s): E03.9 - Hypothyroidism , unspecified (7) Thrombocytopenia Priority: Secondary Status: Chronic Hospital course: Ms. Griffin is a 82 year old female with a past medical hx of dementia Gerd HTN thyroid disease recurrent UTI She presented from an F with weakness, confusion and decreased oral intake which has been progressively worse over the past week. She was found to have UTI and was dehydrated .She was given IV rocephin as well as IVF . Blood pressure was low upon presentation however this improved after IVF. Urine culture did grow E coli and proteus which was sensitive to Rocephin She completed 3 day course of ATB . It was noted per nursing staff that upon admission she did have a stage 2 pressure ulcer on her coccyx and Alevyn dressing was applied . She return to her mental baseline according to family, however she continued to have poor appetite - according to son Lobo Griffin this has been going on for some time. We did have a discussion concerning care expectations, they would like to continue the patient as a full code as well as if the patient cont to decline dt failure to thrive- they are interested in a PEG tube - I had anticipated discharging patient Josh however patient had an episode of Afib RVR- she had been off her metoprolol dt low BP - we did resume her metoprolol at a lower dose and her heart rate did improve - the patient son Lobo Griffin and I did discuss that the patient is not on any anticoagulation dt anemia and thrombocytopenia risk of bleeding - He is aware and that he understands the risk of stroke. Discharge discussed with: patient - Time Spent with Patient Total time spent providing and/or coordinating discharge services: - Discharge Medications Home Medications: Acetaminophen [Tylenol] 650 mg PO Q6HR PRN 09/14/15 [History] Budesonide/Formoterol 160/4.5 [Symbicort 160/4.5] 2 puff IH BIDR 09/14/15 [ History] Calcitriol 2.5 mcg PO Q48H 09/14/15 [History] Docusate [Colace] 100 mg PO BID 09/14/15 [History] Folic Acid 1 mg PO DAILY 09/14/15 [History] Magnesium Oxide [Magnesium] 400 mg PO DAILY 09/14/15 [History] Memantine HCl [Namenda Xr] 28 mg PO DAILY 09/14/15 [History] Mirtazapine [Remeron] 7.5 mg PO HS 09/14/15 [History] Omeprazole [PriLOSEC] 20 mg PO DAILY 09/14/15 [History] Paroxetine HCl 10 mg PO DAILY 09/14/15 [History] Azelastine 0.1% Nasal [place] [Astelin] 2 spr NS BID 05/19/17 [History] Carbidopa/Levodopa ER 50/200 [Sinemet ER 50-200 Tab] 1 tab PO BID 05/19/17 [ History] Lactobacillus Acidophilus [Acidophilus] 1 cap PO BID 05/19/17 [History] Magnesium Hydroxide [Milk of Magnesia] 30 ml PO DAILY PRN 05/19/17 [History] Na Phos,M-B/Na Phos,Di-Ba [Fleet Enema Extra] 1 each RC Q48H PRN 05/19/17 [ History] Albuterol Sulfate [Ventolin Hfa] 2 puff IH Q4-6H PRN 05/24/17 [History] Levothyroxine [Synthroid] 150 mcg PO DAILY 02/28/18 [History] Quetiapine Fumarate [Seroquel] 12.5 mg PO BID 02/28/18 [History] Calcium Carbonate/Vitamin D3 [Calcium 600-Vit D3 400 Tablet] 1 tab PO DAILY [History] LORazepam [Ativan] 0.5 mg PO DAILY PRN 03/25/18 [History] Tramadol HCl [Ultram] 50 - 100 mg PO TID PRN 03/25/18 [History] Megestrol Acetate [Megace] 800 mg PO DAILY udc 03/29/18 [Rx] Carbidopa/Levodopa 25/100 [Sinemet 25/100] 1 each PO BID tablet 03/31/18 [Rx] Metoprolol [Lopressor] 12.5 mg PO BID tablet 03/31/18 [Rx] Allergies/Adverse Reactions: 3 Allergy/AdvReac Type Severity Reaction Status Date / Time Amoxicillin Allergy unknown Verified 02/28/18 15:07 atropine Allergy unknown Verified 02/28/18 15:07 Diphenoxylate Allergy unknown Verified 02/28/18 15:07 enalapril Allergy unknown Verified 02/28/18 15:07 esomeprazole Allergy inknown Verified 02/28/18 15:07 Hydromorphone Allergy unknown Verified 02/28/18 15:07 Iodinated Contrast- Oral and Allergy unknown Verified 02/28/18 15:07 IV Dye [Iodinated Contrast Media - IV Dye] nitrofurantoin Allergy unknown Verified 02/28/18 15:07 Penicillins Allergy unkown Verified 02/28/18 15:07 piroxicam Allergy unknown Verified 02/28/18 15:07 Sulfa (Sulfonamide Allergy unknown Verified 02/28/18 15:07 Antibiotics) Date of admission: 03/27/18 17:32 Primary care physician: Braden Garibay MD Consults: 03/28/18 09:24 Consult to Physical Therapy [CONS] Routine Comment: Evaluate, develop and implement POC Reason for Consult: patient been on bedrest on admission Does patient have active BEDREST order?: No Is patient medically & hemodynamically stable?: Yes Patient assessed for mobility or mobilized this visit?: Yes Discharging clinician: Ivy Ruby Anticipated date of discharge: 03/31/18 - Constitutional Vitals: Temp Pulse Resp BP Pulse Ox 97.8 F 56 16 112/72 91 03/29/18 14:59 03/29/18 11:54 03/29/18 14:59 03/29/18 14:59 03/29/18 11:54 General appearance: Present: A&O X 1, pleasant - Head Head exam: Present: atraumatic, normocephalic - Eye Eye exam: Present: PERRL, conjuntiva pink, sclera anicteric - Neck Neck exam general surgery: Present: supple, trachea midline. Absent: lymphadenopathy - Respiratory Respiratory exam: Present: CTAB. Absent: accessory muscle use, rales, rhonchi, wheezes - Cardiovascular Cardiovascular exam: Present: RRR, +S1, +S2. Absent: diastolic murmur, gallop, rubs, systolic murmur - GI/Abdominal GI/Abdominal exam: Present: normal bowel sounds, soft, no peritoneal signs. Absent: distended, tenderness - Extremities Exam Extremities exam: Present: warm, radial pulses palpable and symmetrical. Absent : calf tenderness, cyanotic, pedal edema - Neurological Exam Neurological exam: Present: CN II-XII intact, oriented X3, no focal deficits. Absent: pronater drift, facial droop, speech deficit - Skin Skin exam: Present: dry, intact - Patient Status Disposition: Transfer SNF Condition: Fair Functional capacity at discharge: uses cane/walker Overall status at discharge: patient is back to baseline - Discharge Instructions Instructions: Urinary Tract Infection in Women (DC) Follow Up With: Braden Garibay MD [Primary Care Provider] - - Diet and Activity Activity: as per physical therapy Diet: advance to your usual diet - VTE Documentation of Mechanical Device: Intermittent pneumatic compression device
--- NOTE | 2018-03-29 16:51 | Internal Med Progress Note ---
Hospitalist Progress Note - Encounter Date of Encounter: 03/29/18 Time of Encounter: 16:51 - Subjective Interval History: Patient seen and examined earlier today. I was preparing to discharge the patient when I was notified by nursing staff that patient HR elevated She is also requiring increased O2 and she is not normally on O2 at the [facility]. EKG was obtained and it did reveal Afib RVR. Obtained CXR which did show mild pulmonary congestion and mild pleural effusion at the left lung base. She eventually returned to a control rate afib 90. Discharge has been cancelled and patient will cont to be monitored - Exam Vitals: Temp Pulse Resp BP Pulse Ox 97.8 F 56 16 112/72 91 03/29/18 14:59 03/29/18 11:54 03/29/18 14:59 03/29/18 14:59 03/29/18 11:54 Exam: General: Alert and oriented x2 Skin:Normal color, no rash, no lesions. HEENT:EOM, pupils equal, round and reactive. Cardiovascular: irregular S1 & S2, no rubs, murmurs or gallops. No JVD. Pulse regular. Lungs:Normal breath sounds, no wheezes or crackles. Abdomen:Soft, non-tender, no rigidity. Extremities:No deformity, no edema or tenderness, no joint swelling or clubbing. Neurological:Normal cognition and motor skills. Pulses:Carotid and radial pulses normal +2. Rest of the physical exam is non contributory. - Assessment and Plan (1) UTI (urinary tract infection) Current Visit: Yes Status: Acute Assessment and Plan: On nitrofurantoin prophylactically for ecoli UTI. Will hold nitrofurantoin. ER UA shows large leukocyte esterase. Urine culture growing Proteus mirabilis E coli-sensitive to Rocephin received 3 day course (2) Failure to thrive Current Visit: Yes Status: Acute Assessment and Plan: Nutrition consult ordered for supplementation recommendations- ensure Patient states she does not have an appetite she has been refusing pills however will take him with much coaxing and in applesauce Will closely monitor I/O if cont not to eat will consider possible Megace - will have nursing assist with feeding - mechanical soft (3) Dehydration Current Visit: Yes Status: Acute Assessment and Plan: closely monitor I/O Monitor labs and replace electrolytes . (4) Elevated troponin Current Visit: Yes Status: Acute Assessment and Plan: Elevated troponin in ER. Serial troponins ordered flat adynamic suspect rt to infection will monitor (5) Celiac disease Current Visit: No Status: Chronic Assessment and Plan: 1hx of celiac disease- nutrition consulted, gluten free diet (6) Hypothyroidism Current Visit: No Status: Chronic Assessment and Plan: S/P thyroid surgery and parathyroid removed . On calcitrol was hospitalized with hypercalcemia around December 2014- on calcitrol 2.5mcg po every 48hrs - currently this is not on formulary -patient as been refusing mediations (7) Thrombocytopenia Current Visit: No Status: Chronic Assessment and Plan: this is chronic - monitor for s/sx of bleeding (8) Atrial fibrillation Current Visit: Yes Status: Acute Assessment and Plan: 1 patient has a hx of atrial fibrillation- she is on metoprolol 25 mg po BID at home- She has been experiencing hypotension and her metoprolol has been held. She is not any anticoagulation she has hx of anemia and thrombocytopenia Today she has been expereincing episodes of Afib RVR We will resume metoprolol at a low dose 12.5 BID with parameters, I will obtain cardiac echo - Afib RVR persists we will consult cardiology (9) Atrial fibrillation with RVR Current Visit: Yes Status: Acute Assessment and Plan: patient has a hx of atrial fibrillation- she is on metoprolol 25 mg po BID at home- She has been experiencing hypotension and her metoprolol has been held. She is not any anticoagulation she has hx of anemia and thrombocytopenia Today she has been expereincing episodes of Afib RVR We will resume metoprolol at a low dose 12.5 BID with parameters, I will obtain cardiac echo - Afib RVR persists we will consult cardiology (10) COPD (chronic obstructive pulmonary disease) Current Visit: No Status: Chronic Assessment and Plan: Upon review of [facility] records appears patient has hx of COPD- we will cont with symbicort and albuterol as needed O2 as needed DVT Prophylaxis: SCD - Time Spent with Patient Total time spent is greater than 50% in coordination of care (as documented) at patient's floor/unit and/or counseling patient: Internal Medicine: Result - Labs CBC & Chem 7: 03/29/18 05:25 03/29/18 05:25 Labs: Short CBC 03/29/18 Range/Units 05:25 WBC 3.7 L (4.3-11.1) K/mcL Hgb 10.4 L (11.5-15.4) g/dL Hct 33.3 L (35.3-44.9) % Plt Count 67 L (140-400) K/mcL Neutrophils # 2.8 (1.6-8.9) K/mcL [facility] 03/29/18 05:25 Sodium 142 Potassium 3.5 Chloride 112 H Carbon Dioxide 25 BUN 17 Creatinine 0.68 Glucose 105 Calcium 8.4 L - VTE Documentation of Mechanical Device: Intermittent pneumatic compression device Consult Discharge Plan - Plan Instructions: Urinary Tract Infection in Women (DC) Referrals: Braden Garibay MD [Primary Care Provider] - (1) UTI (urinary tract infection) Qualifiers: Urinary tract infection type: site unspecified Hematuria presence: with hematuria Qualified Code(s): N39.0 - Urinary tract infection, site not specified; R31.9 - Hematuria, unspecified (2) Failure to thrive Qualifiers: Failure to thrive age range: in adult Qualified Code(s): R62.7 - Adult failure to thrive (6) Hypothyroidism Qualifiers: Hypothyroidism type: unspecified Qualified Code(s): E03.9 - Hypothyroidism, unspecified (8) Atrial fibrillation Qualifiers: Atrial fibrillation type: chronic Qualified Code(s): I48.2 - Chronic atrial fibrillation (10) COPD (chronic obstructive pulmonary disease) Qualifiers: COPD type: unspecified COPD Qualified Code(s): J44.9 - Chronic obstructive pulmonary disease, unspecified
[2018-03-29] MEDS: Mirtazapine 15 MG TABLET PO SCH (20:10)
[2018-03-30 04:17] LABS: Troponin I 0.03 ng/mL (< 0.04)
[2018-03-30 07:51] LABS: BUN/Creatinine Ratio 28 (6-26); Blood Urea Nitrogen 18 mg/dL (8-23); Calcium 8.4 mg/dL (8.6-10.3); Carbon Dioxide 26 mEq/L (23-29); Chloride 111 mEq/L (98-107); Glucose 98 mg/dL (70-105); Osmolality,Calculated 296 (280-300); Potassium 3.6 mEq/L (3.5-5.1); Sodium 142 mEq/L (136-145); eGFR For Non-African Americans > 60 (> 60)
--- NOTE | 2018-03-30 09:19 | Internal Med Progress Note ---
Hospitalist Progress Note - Encounter Date of Encounter: 03/30/18 Time of Encounter: 09:27 - Subjective Interval History: Patient seen and examined at bedside, Her heart rate is more controlled today, no CP or SOB - Exam Vitals: Temp Pulse Resp BP Pulse Ox 97.7 F 89 20 114/76 97 03/30/18 08:08 03/30/18 08:08 03/30/18 08:08 03/30/18 08:08 03/30/18 08:08 Exam: General: Alert and oriented x2 Skin:Normal color, no rash, no lesions. HEENT:EOM, pupils equal, round and reactive. Cardiovascular: irregular S1 & S2, no rubs, murmurs or gallops. No JVD. Pulse regular. Lungs:Normal breath sounds, no wheezes or crackles. Abdomen:Soft, non-tender, no rigidity. Extremities:No deformity, no edema or tenderness, no joint swelling or clubbing. Neurological:Normal cognition and motor skills. Pulses:Carotid and radial pulses normal +2. Rest of the physical exam is non contributory. - Assessment and Plan (1) UTI (urinary tract infection) Current Visit: Yes Status: Resolved Assessment and Plan: On nitrofurantoin prophylactically for ecoli UTI. Will hold nitrofurantoin. ER UA shows large leukocyte esterase. Urine culture growing Proteus mirabilis E coli-sensitive to Rocephin received 3 day course (2) Failure to thrive Current Visit: Yes Status: Acute Assessment and Plan: Nutrition consult ordered for supplementation recommendations- ensure Patient states she does not have an appetite she has been refusing pills however will take him with much coaxing and in applesauce Will closely monitor I/O if cont not to eat will consider possible Megace - will have nursing assist with feeding - mechanical soft (3) Dehydration Current Visit: Yes Status: Acute Assessment and Plan: closely monitor I/O Monitor labs and replace electrolytes . (4) Elevated troponin Current Visit: Yes Status: Acute Assessment and Plan: Elevated troponin in ER. Serial troponins ordered flat adynamic suspect rt to infection will monitor (5) Celiac disease Current Visit: No Status: Chronic Assessment and Plan: 1hx of celiac disease- nutrition consulted, gluten free diet (6) Hypothyroidism Current Visit: No Status: Chronic Assessment and Plan: S/P thyroid surgery and parathyroid removed . On calcitrol was hospitalized with hypercalcemia around December 2014- on calcitrol 2.5mcg po every 48hrs - currently this is not on formulary -patient as been refusing mediations (7) Thrombocytopenia Current Visit: No Status: Chronic Assessment and Plan: this is chronic - monitor for s/sx of bleeding (8) Atrial fibrillation Current Visit: Yes Status: Acute Assessment and Plan: 1 patient has a hx of atrial fibrillation- she is on metoprolol 25 mg po BID at home- She has been experiencing hypotension and her metoprolol has been held. She is not any anticoagulation she has hx of anemia and thrombocytopenia Sh did have some Afib RVR yesterday. I duid resume her metoprolol at a lower dose - rate has improved awaiting echo results (9) Atrial fibrillation with RVR Current Visit: Yes Status: Acute Assessment and Plan: patient has a hx of atrial fibrillation- she is on metoprolol 25 mg po BID at home- She has been experiencing hypotension and her metoprolol has been held. Patient is not on any anticoagulatoin she does have a hx of anemia and thrombocytopenia Resumed metoprolol at a lower dose- rate is more controlled (10) COPD (chronic obstructive pulmonary disease) Current Visit: No Status: Chronic Assessment and Plan: Upon review of [facility] records appears patient has hx of COPD- we will cont with symbicort and albuterol as needed - stable at this time O2 as needed DVT Prophylaxis: SCD - Time Spent with Patient Total time spent is greater than 50% in coordination of care (as documented) at patient's floor/unit and/or counseling patient: Internal Medicine: Result - Labs CBC & Chem 7: 03/29/18 05:25 03/30/18 03:45 Labs: BMP 03/30/18 03:45 Sodium 142 Potassium 3.6 Chloride 111 H Carbon Dioxide 26 BUN 18 Creatinine 0.65 Glucose 98 Calcium 8.4 L Cardiac Enzymes 03/30/18 Range/Units 03:45 Troponin I 0.03 (< 0.04) ng/mL - Impressions Impressions Chest X-Ray 03/29/18 18:24 IMPRESSION: Mild pulmonary vascular congestion. Atelectasis and mild pleural effusion at the left lung base. D/ / Shen Askew MD / Shen Askew MD Interpreting Provider: Shen Askew MD - VTE Documentation of Mechanical Device: Intermittent pneumatic compression device Consult Discharge Plan - Plan Instructions: Urinary Tract Infection in Women (DC) Referrals: Braden Garibay MD [Primary Care Provider] - (1) UTI (urinary tract infection) Qualifiers: Urinary tract infection type: site unspecified Hematuria presence: with hematuria Qualified Code(s): N39.0 - Urinary tract infection, site not specified; R31.9 - Hematuria, unspecified (2) Failure to thrive Qualifiers: Failure to thrive age range: in adult Qualified Code(s): R62.7 - Adult failure to thrive (6) Hypothyroidism Qualifiers: Hypothyroidism type: unspecified Qualified Code(s): E03.9 - Hypothyroidism, unspecified (8) Atrial fibrillation Qualifiers: Atrial fibrillation type: chronic Qualified Code(s): I48.2 - Chronic atrial fibrillation (10) COPD (chronic obstructive pulmonary disease) Qualifiers: COPD type: unspecified COPD Qualified Code(s): J44.9 - Chronic obstructive pulmonary disease, unspecified
[2018-03-30] MEDS: Magnesium Oxide 400 MG TABLET PO SCH (09:49)
[2018-03-30] MEDS: Lactobacillus 1 EACH CAP.SPRINK PO SCH ×2 (09:50→21:51)
[2018-03-30] MEDS: Folic Acid 1 MG TABLET PO SCH (09:50)
[2018-03-30] MEDS: Cholecalciferol (D-3) 1,000 UNIT TABLET PO SCH (09:50)
[2018-03-30] MEDS: Carbidopa/Levodopa 25/100 TABLET PO SCH ×2 (09:51→21:51)
[2018-03-30] MEDS: Azelastine 0.1% Nasal Spray 30 ML BOTTLE NS SCH ×2 (10:38→21:50)
[2018-03-30] MEDS: Budesonide/Formoterol 160/4.5 1 PUFF INH IH SCH ×2 (10:55→20:26)
[2018-03-30 11:10] LABS: Basophils % 0.2 %; Eosinophils # 0.1 K/mcL (0.0-0.6); Eosinophils % 1.8 %; Hematocrit 35.2 % (35.3-44.9); Immature Granulocytes % 1.6 % (0-4)
[2018-03-30 11:12] LABS: Hemoglobin 10.9 g/dL (11.5-15.4); Immature Platelets 8.5 % (1.1-6.1); Lymphocytes # 0.5 K/mcL (0.6-4.6); Lymphocytes % 10.7 %; Mean Corpuscular Hemoglobin 29.2 pg (28.0-33.3); Mean Corpuscular Volume 94.4 fL (83.0-100.0); Mean Platelet Volume 11.8 fL (9.4-12.4); Monocytes # 0.2 K/mcL (0.0-1.3); Monocytes % 4.9 %; Neutrophils # 3.6 K/mcL (1.6-8.9); Red Blood Count 3.73 M/mcL (3.82-4.97); Red Cell Distribution Width 15.6 % (11.5-14.5); Segmented Neutrophils % 80.8 %
[2018-03-30 11:24] LABS: Platelet Count 75 K/mcL (140-400)
[2018-03-30] MEDS: Docusate Oral Soln 100 MG/10 ML UDC PO SCH ×2 (12:15→21:51)
[2018-03-30] MEDS: Mirtazapine 15 MG TABLET PO SCH (21:51)
[2018-03-31 04:34] LABS: Basophils % 0.6 %; Eosinophils # 0.1 K/mcL (0.0-0.6); Eosinophils % 1.2 %; Hematocrit 36.9 % (35.3-44.9); Hemoglobin 11.3 g/dL (11.5-15.4); Immature Granulocytes % 1.8 % (0-4); Immature Platelets 9.7 % (1.1-6.1); Lymphocytes # 0.7 K/mcL (0.6-4.6); Lymphocytes % 14.4 %; Mean Corpuscular HGB Conc 30.6 g/dL (31.6-35.5); Mean Corpuscular Hemoglobin 28.6 pg (28.0-33.3); Mean Corpuscular Volume 93.4 fL (83.0-100.0); Mean Platelet Volume 12.8 fL (9.4-12.4); Monocytes # 0.3 K/mcL (0.0-1.3); Neutrophils # 3.9 K/mcL (1.6-8.9); Red Blood Count 3.95 M/mcL (3.82-4.97); Red Cell Distribution Width 15.8 % (11.5-14.5)
[2018-03-31 04:42] LABS: Platelet Count 96 K/mcL (140-400)
[2018-03-31 04:52] LABS: BUN/Creatinine Ratio 26 (6-26); Blood Urea Nitrogen 18 mg/dL (8-23); Calcium 8.6 mg/dL (8.6-10.3); Carbon Dioxide 22 mEq/L (23-29); Chloride 109 mEq/L (98-107); Glucose 83 mg/dL (70-105); Osmolality,Calculated 289 (280-300); Potassium 3.8 mEq/L (3.5-5.1); Sodium 139 mEq/L (136-145); eGFR For Non-African Americans > 60 (> 60)
[2018-03-31] MEDS: Carbidopa/Levodopa ER 50/200 TABLET PO SCH (05:13)
[2018-03-31] MEDS: Budesonide/Formoterol 160/4.5 1 PUFF INH IH SCH ×2 (07:39→22:48)
[2018-03-31] MEDS: Cholecalciferol (D-3) 1,000 UNIT TABLET PO SCH (10:01)
[2018-03-31] MEDS: Lactobacillus 1 EACH CAP.SPRINK PO SCH ×2 (10:01→20:50)
[2018-03-31] MEDS: Folic Acid 1 MG TABLET PO SCH (10:02)
[2018-03-31] MEDS: Magnesium Oxide 400 MG TABLET PO SCH (10:02)
[2018-03-31] MEDS: Carbidopa/Levodopa 25/100 TABLET PO SCH ×2 (10:02→20:51)
[2018-03-31] MEDS: Docusate Oral Soln 100 MG/10 ML UDC PO SCH ×3 (10:03→20:49)
[2018-03-31] MEDS: Azelastine 0.1% Nasal Spray 30 ML BOTTLE NS SCH ×2 (10:03→20:48)
[2018-03-31] MEDS ORDERED: Furosemide 20 MG/2 ML VIAL IVP ONE (13:08)
--- NOTE | 2018-03-31 17:31 | Internal Med Progress Note ---
Hospitalist Progress Note - Encounter Date of Encounter: 03/31/18 Time of Encounter: 17:28 - Subjective Interval History: Patient seen and examined at bedside, Her heart rate is more controlled today, I did have a discussion with patient son Lobo Griffin concerning care expectations with the son , they would like to continue the patient as a full code as well as if the patient cont to decline dt failure to thrive- they are interested in a PEG tube - - Exam Vitals: Temp Pulse Resp BP Pulse Ox 98.7 F 105 16 103/52 91 03/31/18 15:32 03/31/18 15:32 03/31/18 15:32 03/31/18 15:32 03/31/18 15:32 Exam: General: Alert and oriented x2 Skin:Normal color, no rash, no lesions. HEENT:EOM, pupils equal, round and reactive. Cardiovascular: irregular S1 & S2, no rubs, murmurs or gallops. No JVD. Pulse regular. Lungs:Normal breath sounds, no wheezes or crackles. Abdomen:Soft, non-tender, no rigidity. Extremities:No deformity, no edema or tenderness, no joint swelling or clubbing. Neurological:Normal cognition and motor skills. Pulses:Carotid and radial pulses normal +2. Rest of the physical exam is non contributory. - Assessment and Plan (1) UTI (urinary tract infection) Current Visit: Yes Status: Resolved Assessment and Plan: On nitrofurantoin prophylactically for ecoli UTI. Will hold nitrofurantoin. ER UA shows large leukocyte esterase. Urine culture growing Proteus mirabilis E coli-sensitive to Rocephin received 3 day course (2) Failure to thrive Current Visit: Yes Status: Acute Assessment and Plan: Nutrition consult ordered for supplementation recommendations- ensure Patient states she does not have an appetite she has been refusing pills however will take him with much coaxing and in applesauce Will closely monitor I/O if cont not to eat will consider possible Megace - will have nursing assist with feeding - mechanical soft (3) Dehydration Current Visit: Yes Status: Acute Assessment and Plan: closely monitor I/O Monitor labs and replace electrolytes . (4) Elevated troponin Current Visit: Yes Status: Acute Assessment and Plan: Elevated troponin in ER. Serial troponins ordered flat adynamic suspect rt to infection will monitor- no CP voiced (5) Celiac disease Current Visit: No Status: Chronic Assessment and Plan: 1hx of celiac disease- nutrition consulted, gluten free diet (6) Hypothyroidism Current Visit: No Status: Chronic Assessment and Plan: S/P thyroid surgery and parathyroid removed . On calcitrol was hospitalized with hypercalcemia around December 2014- on calcitrol 2.5mcg po every 48hrs - currently this is not on formulary -patient as been refusing mediations (7) Thrombocytopenia Current Visit: No Status: Chronic Assessment and Plan: this is chronic - monitor for s/sx of bleeding (8) Atrial fibrillation Current Visit: Yes Status: Acute Assessment and Plan: 1 patient has a hx of atrial fibrillation- she is on metoprolol 25 mg po BID at home- She has been experiencing hypotension and her metoprolol has been held. She is not any anticoagulation she has hx of anemia and thrombocytopenia Sh did have some Afib RVR I duid resume her metoprolol - rate has improved echo results LVEF 60%. Normal LV chamber size, wall thickness and function. Indeterminate diastolic function. Normal right ventricular structure and function. Mild mitral regurgitation. Mild tricuspid regurgitation. Mild pulmonary hypertension. (9) Atrial fibrillation with RVR Current Visit: Yes Status: Acute Assessment and Plan: patient has a hx of atrial fibrillation- she is on metoprolol 25 mg po BID at home- She has been experiencing hypotension and her metoprolol has been held. Patient is not on any anticoagulatoin she does have a hx of anemia and thrombocytopenia Resumed metoprolol rate controlledat this time (10) Hypoxia Current Visit: No Status: Acute Assessment and Plan: 1 Patient is requiring oxygen- when O@ remove she drops to 87% she is not normally on O2 we will CXR did show some mild pulmonary congestion will give lasix will check CT of chest cont with O2 echo results LVEF 60%. Normal LV chamber size, wall thickness and function. Indeterminate diastolic function. Normal right ventricular structure and function. Mild mitral regurgitation. Mild tricuspid regurgitation. Mild pulmonary hypertension. DVT Prophylaxis: SCD - Time Spent with Patient Total time spent is greater than 50% in coordination of care (as documented) at patient's floor/unit and/or counseling patient: Internal Medicine: Result - Labs CBC & Chem 7: 03/31/18 04:09 03/31/18 04:09 Labs: Short CBC 03/31/18 Range/Units 04:09 WBC 5.0 (4.3-11.1) K/mcL Hgb 11.3 L (11.5-15.4) g/dL Hct 36.9 (35.3-44.9) % Plt Count 96 L (140-400) K/mcL Neutrophils # 3.9 (1.6-8.9) K/mcL [facility] 03/31/18 04:09 Sodium 139 Potassium 3.8 Chloride 109 H Carbon Dioxide 22 L BUN 18 Creatinine 0.70 Glucose 83 Calcium 8.6 - VTE Documentation of Mechanical Device: Intermittent pneumatic compression device Consult Discharge Plan - Plan Instructions: Urinary Tract Infection in Women (DC) Referrals: Braden Garibay MD [Primary Care Provider] - (1) UTI (urinary tract infection) Qualifiers: Urinary tract infection type: site unspecified Hematuria presence: with hematuria Qualified Code(s): N39.0 - Urinary tract infection, site not specified; R31.9 - Hematuria, unspecified (2) Failure to thrive Qualifiers: Failure to thrive age range: in adult Qualified Code(s): R62.7 - Adult failure to thrive (6) Hypothyroidism Qualifiers: Hypothyroidism type: unspecified Qualified Code(s): E03.9 - Hypothyroidism, unspecified (8) Atrial fibrillation Qualifiers: Atrial fibrillation type: chronic Qualified Code(s): I48.2 - Chronic atrial fibrillation
[2018-03-31] MEDS: CALCITRIOL 0.5 MCG PO SCH (17:38)
[2018-03-31] MEDS: Mirtazapine 15 MG TABLET PO SCH (20:50)
[2018-04-01 06:45] LABS: Immature Granulocytes % 1.4 % (0-4)
[2018-04-01 06:47] LABS: Basophils % 0.2 %; Eosinophils # 0.1 K/mcL (0.0-0.6); Eosinophils % 1.4 %; Hemoglobin 9.8 g/dL (11.5-15.4); Immature Platelets 8.8 % (1.1-6.1); Lymphocytes # 0.8 K/mcL (0.6-4.6); Lymphocytes % 18.7 %; Mean Corpuscular HGB Conc 31.6 g/dL (31.6-35.5); Mean Corpuscular Hemoglobin 29.3 pg (28.0-33.3); Mean Corpuscular Volume 92.5 fL (83.0-100.0); Mean Platelet Volume 12.2 fL (9.4-12.4); Monocytes # 0.2 K/mcL (0.0-1.3); Monocytes % 5.5 %; Neutrophils # 3.1 K/mcL (1.6-8.9); Platelet Count 82 K/mcL (140-400); Red Blood Count 3.35 M/mcL (3.82-4.97); Red Cell Distribution Width 15.5 % (11.5-14.5); Segmented Neutrophils % 72.8 %
[2018-04-01 07:05] LABS: BUN/Creatinine Ratio 20 (6-26); Blood Urea Nitrogen 15 mg/dL (8-23); Calcium 7.8 mg/dL (8.6-10.3); Carbon Dioxide 28 mEq/L (23-29); Chloride 108 mEq/L (98-107); Glucose 96 mg/dL (70-105); Osmolality,Calculated 291 (280-300); Potassium 3.6 mEq/L (3.5-5.1); Sodium 140 mEq/L (136-145); eGFR For Non-African Americans > 60 (> 60)
[2018-04-01] MEDS: Folic Acid 1 MG TABLET PO SCH (08:43)
[2018-04-01] MEDS: Magnesium Oxide 400 MG TABLET PO SCH (08:43)
[2018-04-01] MEDS: Cholecalciferol (D-3) 1,000 UNIT TABLET PO SCH (08:43)
[2018-04-01] MEDS: Carbidopa/Levodopa 25/100 TABLET PO SCH ×2 (08:43→21:35)
[2018-04-01] MEDS: Docusate Oral Soln 100 MG/10 ML UDC PO SCH ×2 (08:44→21:34)
[2018-04-01] MEDS: Lactobacillus 1 EACH CAP.SPRINK PO SCH ×2 (08:44→21:34)
[2018-04-01] MEDS: Azelastine 0.1% Nasal Spray 30 ML BOTTLE NS SCH ×2 (08:45→21:34)
[2018-04-01] MEDS: Azithromycin 500 MG in D5% in Water 250 ML IVPB SCH (11:16)
[2018-04-01] MEDS: Budesonide/Formoterol 160/4.5 1 PUFF INH IH SCH ×2 (11:17→19:30)
[2018-04-01] MEDS: cefTRIAXone 1,000 MG in Water for inj. (sterile) 20 ML 10 ML IVP SCH (11:20)
[2018-04-01] MEDS: Mirtazapine 15 MG TABLET PO SCH (21:35)
--- NOTE | 2018-04-01 22:01 | Internal Med Progress Note ---
Hospitalist Progress Note - Encounter Date of Encounter: 04/01/18 Time of Encounter: 11:00 - Subjective Interval History: Patient seen and examined at bedside, Her heart rate is more controlled today, I did have a discussion with patient son Lobo Griffin concerning care expectations with the son , they would like to continue the patient as a full code as well as if the patient cont to decline dt failure to thrive- they are interested in a PEG tube - - Exam Vitals: Temp Pulse Resp BP Pulse Ox 98.2 F 113 16 121/73 92 04/01/18 18:55 04/01/18 18:55 04/01/18 19:30 04/01/18 18:55 04/01/18 19:30 Exam: General: Alert and oriented x2 Skin:Normal color, no rash, no lesions. HEENT:EOM, pupils equal, round and reactive. Cardiovascular: irregular S1 & S2, no rubs, murmurs or gallops. No JVD. Pulse regular. Lungs:Normal breath sounds, no wheezes or crackles. Abdomen:Soft, non-tender, no rigidity. Extremities:No deformity, no edema or tenderness, no joint swelling or clubbing. Neurological:Normal cognition and motor skills. Pulses:Carotid and radial pulses normal +2. Rest of the physical exam is non contributory. - Assessment and Plan (1) UTI (urinary tract infection) Current Visit: Yes Status: Resolved Assessment and Plan: On nitrofurantoin prophylactically for ecoli UTI. Will hold nitrofurantoin. ER UA shows large leukocyte esterase. Urine culture growing Proteus mirabilis E coli-sensitive to Rocephin received 3 day course (2) Failure to thrive Current Visit: Yes Status: Acute Assessment and Plan: Nutrition consult ordered for supplementation recommendations- ensure Patient states she does not have an appetite she has been refusing pills however will take him with much coaxing and in applesauce Will closely monitor I/O if cont not to eat will consider possible Megace - will have nursing assist with feeding - mechanical soft Palliative consulted for goals of care /code status (3) Dehydration Current Visit: Yes Status: Acute Assessment and Plan: she has poor oral intake -closely monitor I/O Monitor labs and replace electrolytes . (4) Elevated troponin Current Visit: Yes Status: Acute Assessment and Plan: Elevated troponin in ER. Serial troponins ordered flat adynamic suspect rt to infection will monitor- no CP voiced (5) Celiac disease Current Visit: No Status: Chronic Assessment and Plan: 1hx of celiac disease- nutrition consulted, gluten free diet (6) Hypothyroidism Current Visit: No Status: Chronic Assessment and Plan: S/P thyroid surgery and parathyroid removed . On calcitrol was hospitalized with hypercalcemia around December 2014- on calcitrol 2.5mcg po every 48hrs - currently this is not on formulary -patient as been refusing mediations (7) Thrombocytopenia Current Visit: No Status: Chronic Assessment and Plan: this is chronic - monitor for s/sx of bleeding (8) Atrial fibrillation Current Visit: Yes Status: Acute Assessment and Plan: 1 patient has a hx of atrial fibrillation- she is on metoprolol 25 mg po BID at home- She has been experiencing hypotension and her metoprolol has been held. She is not any anticoagulation she has hx of anemia and thrombocytopenia Sh did have some Afib RVR I duid resume her metoprolol - rate has improved will monitor echo results LVEF 60%. Normal LV chamber size, wall thickness and function. Indeterminate diastolic function. Normal right ventricular structure and function. Mild mitral regurgitation. Mild tricuspid regurgitation. Mild pulmonary hypertension. (9) Atrial fibrillation with RVR Current Visit: Yes Status: Acute Assessment and Plan: patient has a hx of atrial fibrillation- she is on metoprolol 25 mg po BID at home- She has been experiencing hypotension and her metoprolol has been held. Patient is not on any anticoagulatoin she does have a hx of anemia and thrombocytopenia Resumed metoprolol rate controlledat this time (10) Hypoxia Current Visit: No Status: Acute Assessment and Plan: 1 Patient is requiring oxygen- when O@ remove she drops to 87% she is not normally on O2 we will CXR did show some mild pulmonary congestion will give lasix CT of chest did show Medial right middle lobe and left lower lobe consolidation may reflect pneumonia. cont with O2 echo results LVEF 60%. Normal LV chamber size, wall thickness and function. Indeterminate diastolic function. Normal right ventricular structure and function. Mild mitral regurgitation. Mild tricuspid regurgitation. Mild pulmonary hypertension. (11) Protein calorie malnutrition Current Visit: No Status: Acute Assessment and Plan: According to family patient has had a poor appetite - She was treated for UTI and did not eat for a week. She cont ot have poor appetite- dietary has been consulted for supplement Patient intiated on megace Pallative consulted to discuss care goals (12) Pleural effusion Current Visit: Yes Status: Acute Assessment and Plan: has had hypoxia - she has received IVF dt dehydration- CXR did show some mild vascular congestion and pleural effusion- Lasix was given X1 we will cont to monitor Cont o2 to maintain spo2>92% (13) Pneumonia Current Visit: Yes Status: Acute Assessment and Plan: Has had some hypoxia - cxr does show Medial right middle lobe and left lower lobe consolidation may reflect pneumonia. Blood cultures ordered Rocephine given cont with O2 Duo nebs - Time Spent with Patient Total time spent is greater than 50% in coordination of care (as documented) at patient's floor/unit and/or counseling patient: Internal Medicine: Result - Labs CBC & Chem 7: 04/01/18 06:36 04/01/18 06:36 Labs: Short CBC 04/01/18 Range/Units 06:36 WBC 4.3 (4.3-11.1) K/mcL Hgb 9.8 L D (11.5-15.4) g/dL Hct 31.0 L (35.3-44.9) % Plt Count 82 L (140-400) K/mcL Neutrophils # 3.1 (1.6-8.9) K/mcL BMP 04/01/18 06:36 Sodium 140 Potassium 3.6 Chloride 108 H Carbon Dioxide 28 BUN 15 Creatinine 0.75 Glucose 96 Calcium 7.8 L - Impressions Impressions Chest CT 03/31/18 17:00 IMPRESSION: 1. Images are degraded by breathing motion. 2. Medial right middle lobe and left lower lobe consolidation may reflect pneumonia. 3. Bilateral pleural effusion. 4. Emphysema. 5. Biapical pleuroparenchymal thickening and fibrotic sequela probably related to sequela from old granulomatous disease. 6. Calcific atherosclerosis aorta and coronary arteries. Mild cardiomegaly. 7. Possible hydronephrosis on the right. Only the very top of the right kidney is demonstrated. Bilateral renal ultrasound correlation should be considered. D/ / Kareem Moe / Kareem Moe Interpreting Provider: Kareem Moe - VTE Documentation of Mechanical Device: Intermittent pneumatic compression device Consult Discharge Plan - Plan Instructions: Urinary Tract Infection in Women (DC) Referrals: Braden Garibay MD [Primary Care Provider] - (1) UTI (urinary tract infection) Qualifiers: Urinary tract infection type: site unspecified Hematuria presence: with hematuria Qualified Code(s): N39.0 - Urinary tract infection, site not specified; R31.9 - Hematuria, unspecified (2) Failure to thrive Qualifiers: Failure to thrive age range: in adult Qualified Code(s): R62.7 - Adult failure to thrive (6) Hypothyroidism Qualifiers: Hypothyroidism type: unspecified Qualified Code(s): E03.9 - Hypothyroidism, unspecified (8) Atrial fibrillation Qualifiers: Atrial fibrillation type: chronic Qualified Code(s): I48.2 - Chronic atrial fibrillation (11) Protein calorie malnutrition Qualifiers: Protein-calorie malnutrition severity: unspecified severity Qualified Code(s) : E46 - Unspecified protein-calorie malnutrition
[2018-04-01] MEDS ORDERED: Furosemide 20 MG/2 ML VIAL IVP ONE (22:09)
[2018-04-02 05:18] LABS: BUN/Creatinine Ratio 18 (6-26); Blood Urea Nitrogen 14 mg/dL (8-23); Calcium 7.9 mg/dL (8.6-10.3); Carbon Dioxide 25 mEq/L (23-29); Chloride 105 mEq/L (98-107); Glucose 77 mg/dL (70-105); Osmolality,Calculated 285 (280-300); Potassium 3.5 mEq/L (3.5-5.1); Sodium 138 mEq/L (136-145); eGFR For Non-African Americans > 60 (> 60)
[2018-04-02 06:42] LABS: Basophils % 0.4 %; Hemoglobin 11.4 g/dL (11.5-15.4); Monocytes % 4.7 %; Red Cell Distribution Width 15.6 % (11.5-14.5)
[2018-04-02 06:44] LABS: Eosinophils # 0.1 K/mcL (0.0-0.6); Eosinophils % 1.1 %; Hematocrit 36.3 % (35.3-44.9); Immature Granulocytes % 1.7 % (0-4); Lymphocytes # 0.7 K/mcL (0.6-4.6); Lymphocytes % 13.3 %; Mean Corpuscular HGB Conc 31.4 g/dL (31.6-35.5); Mean Corpuscular Hemoglobin 29.3 pg (28.0-33.3); Mean Corpuscular Volume 93.3 fL (83.0-100.0); Mean Platelet Volume 11.7 fL (9.4-12.4); Monocytes # 0.3 K/mcL (0.0-1.3); Neutrophils # 4.2 K/mcL (1.6-8.9); Platelet Count 102 K/mcL (140-400); Red Blood Count 3.89 M/mcL (3.82-4.97); Segmented Neutrophils % 78.8 %
[2018-04-02] MEDS: Carbidopa/Levodopa 25/100 TABLET PO SCH ×2 (09:11→21:12)
[2018-04-02] MEDS: Magnesium Oxide 400 MG TABLET PO SCH (09:11)
[2018-04-02] MEDS: Lactobacillus 1 EACH CAP.SPRINK PO SCH ×2 (09:11→21:10)
[2018-04-02] MEDS: Cholecalciferol (D-3) 1,000 UNIT TABLET PO SCH (09:11)
[2018-04-02] MEDS: Folic Acid 1 MG TABLET PO SCH (09:11)
[2018-04-02] MEDS: cefTRIAXone 1,000 MG in Water for inj. (sterile) 20 ML 10 ML IVP SCH (09:12)
[2018-04-02] MEDS: Azelastine 0.1% Nasal Spray 30 ML BOTTLE NS SCH ×2 (09:20→21:09)
[2018-04-02] MEDS: Megestrol Acetate 400 MG/10 ML UDC PO SCH (09:21)
[2018-04-02] MEDS: Docusate Oral Soln 100 MG/10 ML UDC PO SCH ×2 (09:23→21:09)
[2018-04-02] MEDS: Azithromycin 500 MG in D5% in Water 250 ML IVPB SCH (10:23)
--- NOTE | 2018-04-02 10:54 | Palliative - Consult Note ---
Date of Encounter: 04/02/18 Time of Encounter: 09:30 - Assessment and Plan (1) Decreased oral intake Current Visit: Yes Status: Acute Assessment and plan: Patient reports not feeling hungry. States celiac disease and not feeling hungry. Megace started per primary care team and patient is eating breakfast at the time of consult. Tolerated pudding and eggs well. Denies oral discomfort. Edentulous. + gag reflex. Denies pain or discomfort. Denies N/V. Consuming Ensure supplement. Family at bedside. Discussed goals of care for nutrition. Explained artificial hydration in regards to PEG placement. Son Milan (Lobo) DPOA states that no desire to have PEG placed. Discussed that if appetite continues to decline would provide comfort care diet and provide comfort care. Family agrees to plan. (2) Goals of care, counseling/discussion Current Visit: Yes Status: Acute Assessment and plan: Conducted bedside meeting with sara Yates and Heidy, [id number]. Heidy is very involved in her care and [facility]. The patient fell last February the [facility] and did not suffer any injury but has not really ambulated since then. The patient has no living will but Milan is DPOA. The patient resides at [facility]. Code status discussion was clarified. The patient states that she would be "OK" with short term intubation. I explained the DNR - Status. Explained DNR-A status and recommended that given that patients frail state that this might be a status to consider. Family to consider and discuss. For now, patient remains FULL CODE. Patient weight has varied here discussed with nursing. The family desires NO PEG for artificial nutrition. Patient to continue ENSURE and Megace. Goals at this point are to return patient to [facility]. Patient is participating in PT & OT. Will continue to follow. (3) Constipation Current Visit: Yes Status: Acute Assessment and plan: Patient reports no BM and non recorded in record since admit. Patient taking Colace and will add SENNA. Patient desires not to consume Miralax. Will monitor. Qualifiers: Constipation type: unspecified constipation type Qualified Code(s): K59.00 - Constipation, unspecified (4) Atrial fibrillation with RVR Current Visit: Yes Status: Acute (5) COPD (chronic obstructive pulmonary disease) Current Visit: No Status: Chronic Qualifiers: COPD type: unspecified COPD Qualified Code(s): J44.9 - Chronic obstructive pulmonary disease, unspecified (6) Celiac disease Current Visit: No Status: Chronic Palliative-CN HPI - Data of Consult Patient: new to practice Consult date: 04/02/18 Requesting Physician: Ivy Ruby Primary Care Provider: Braden Garibay MD Family Provider: Braden Garibay - Consult Narrative Palliative Care/Comfort Measures: Palliative care Reason for consult: Goals of Care History of present illness: Ms. Griffin is a 82 year old female who presents from [facility] for weakness and decreased oral intake getting progressively worse over the past week. Patient found to have UTI and is receiving Rocephin. Family at bedside. Son Milan Rose) and daughter- in -law Heidy # [phone]. Family states that patient has not been eating or drinking much. Patient is alert and oriented to place and person. Patient states she hasn't felt like eating or drinking. Denies chest pain, shortness of breath, nausea, diarrhea, or urinary symptoms. Denies any alleviating or exacerbating factors. Family states patient is on prophylactic nitrofurantoin for ecoli UTI. Family also states patient was previously on warfarin for Afib but was taken off several years ago by PCP. This palliative care consult is for goals of care discussion for FTT. CC: Rosa Rivero Past Med Surg Social Fam HX - Past Medical History Source: old records reviewed, obtained from family, nursing notes reviewed Medical history: atrial fibrillation, dementia, GERD, hypertension, thyroid disease, other Additional medical history: Parkinson's Psychiatric history: anxiety, depression - Past Surgical History Surgical History: no surgical history, thyroidectomy Additional surgical history: thyroidectomy - Social History Smoking Status: Never smoker Smokeless Tobacco Status: No Alcohol use: none Drug use: none Occupational status: retired Current living situation: ECF Activity Level: Mostly sedentary Recent Out of Country Travel Within the Last 8 Weeks: No Exposure or Possible Exposure to Illness During Travel: No - Family History Father Living Status: Hx Family Cardiac Disorders: Yes Mother Living Status: Hx Family Cardiac Disorders: Yes Medications and Allergies Acetaminophen [Tylenol] 650 mg PO Q6HR PRN 09/14/15 [History] Budesonide/Formoterol 160/4.5 [Symbicort 160/4.5] 2 puff IH BIDR 09/14/15 [ History] Calcitriol 2.5 mcg PO Q48H 09/14/15 [History] Docusate [Colace] 100 mg PO BID 09/14/15 [History] Folic Acid 1 mg PO DAILY 09/14/15 [History] Magnesium Oxide [Magnesium] 400 mg PO DAILY 09/14/15 [History] Memantine HCl [Namenda Xr] 28 mg PO DAILY 09/14/15 [History] Mirtazapine [Remeron] 7.5 mg PO HS 09/14/15 [History] Omeprazole [PriLOSEC] 20 mg PO DAILY 09/14/15 [History] Paroxetine HCl 10 mg PO DAILY 09/14/15 [History] Azelastine 0.1% Nasal Spring [Astelin] 2 spr NS BID 05/19/17 [History] Carbidopa/Levodopa ER 50/200 [Sinemet ER 50-200 Tab] 1 tab PO BID 05/19/17 [ History] Lactobacillus Acidophilus [Acidophilus] 1 cap PO BID 05/19/17 [History] Magnesium Hydroxide [Milk of Magnesia] 30 ml PO DAILY PRN 05/19/17 [History] Na Phos,M-B/Na Phos,Di-Ba [Fleet Enema Extra] 1 each RC Q48H PRN 05/19/17 [ History] Albuterol Sulfate [Ventolin Hfa] 2 puff IH Q4-6H PRN 05/24/17 [History] Levothyroxine [Synthroid] 150 mcg PO DAILY 02/28/18 [History] Quetiapine Fumarate [Seroquel] 12.5 mg PO BID 02/28/18 [History] Calcium Carbonate/Vitamin D3 [Calcium 600-Vit D3 400 Tablet] 1 tab PO DAILY [History] LORazepam [Ativan] 0.5 mg PO DAILY PRN 03/25/18 [History] Tramadol HCl [Ultram] 50 - 100 mg PO TID PRN 03/25/18 [History] Megestrol Acetate [Megace] 800 mg PO DAILY udc 03/29/18 [Rx] Carbidopa/Levodopa 25/100 [Sinemet 25/100] 1 each PO BID tablet 03/31/18 [Rx] Metoprolol [Lopressor] 12.5 mg PO BID tablet 03/31/18 [Rx] 3 Allergy/AdvReac Type Severity Reaction Status Date / Time Amoxicillin Allergy unknown Verified 02/28/18 15:07 atropine Allergy unknown Verified 02/28/18 15:07 Diphenoxylate Allergy unknown Verified 02/28/18 15:07 enalapril Allergy unknown Verified 02/28/18 15:07 esomeprazole Allergy inknown Verified 02/28/18 15:07 Hydromorphone Allergy unknown Verified 02/28/18 15:07 Iodinated Contrast- Oral and Allergy unknown Verified 02/28/18 15:07 IV Dye [Iodinated Contrast Media - IV Dye] nitrofurantoin Allergy unknown Verified 02/28/18 15:07 Penicillins Allergy unkown Verified 02/28/18 15:07 piroxicam Allergy unknown Verified 02/28/18 15:07 Sulfa (Sulfonamide Allergy unknown Verified 02/28/18 15:07 Antibiotics) All systems: reviewed and no additional remarkable complaints except as stated Review of systems: Lack of appetite, weakness, poor ambulation. - Constitutional Constitutional ROS PAL: decreased appetite, fatigue - EENT Ears: decreased hearing - Cardiovascular Cardiovascular ROS: irregular heart rhythm - Gastrointestinal Gastrointestinal: constipation - Genitourinary Palliative ROS female: urinary frequency - Musculoskeletal Musculoskeletal ROS IM: muscle weakness - Neurological Neurological ROS: weakness Palliative Care-Exam - Constitutional Vitals: Temp Pulse Resp BP Pulse Ox 98.3 F 87 15 123/69 97 04/02/18 07:03 04/02/18 07:03 04/02/18 07:03 04/02/18 07:03 04/02/18 07:03 General appearance: Present: cooperative, no acute distress - Head Head Exam: Present: atraumatic, normal inspection, normocephalic - Eye Eye exam: Present: PERRL Pupils: Present: PERRL - ENT ENT exam: Present: mucous membranes moist - Expanded ENT Exam Teeth exam: Present: edentulous (Has upper dentures here but won't wear and lower dentures are at ECF) - Respiratory Respiratory exam: Present: CTAB - Expanded Respiratory Exam Location: decreased breath sounds: Left, Right, Lower - Cardiovascular Cardiovascular exam: Present: +S1, +S2 - Expanded Cardiovascular Exam Peripheral pulses: 1+: Femoral (L) PM, Femoral (R) PM, Posterior Tibialis (L), Posterior Tibialis (R), 2+: Carotid (L) PM, Carotid (R) PM, Radial (L), Radial ( R), Dorsalis Pedis (L) PM, Dorsalis Pedis (R) PM - GI/Abdominal Exam GI/Abdominal exam: Present: normal bowel sounds, tenderness - Rectal Rectal exam: Present: deferred - Expanded Upper Extremities Exam Shoulder exam: Present: full ROM Upper Arm exam: Present: full ROM - Neurological Exam Neurological exam: Present: alert - Expanded Neurological Exam Patient oriented to: Present: person, place Coma Scale Eye Opening: Spontaneous Coma Scale Motor Response: Obeys Commands Coma Scale Verbal Response: Oriented Coma Scale Total: 15 - Psychiatric Psychiatric exam: Present: normal affect - Skin Skin exam: Present: pallor, warm Internal Medicine - CN: Reslt - Labs CBC & Chem 7: 04/02/18 06:28 04/02/18 04:00 Labs: Short CBC 04/02/18 Range/Units 06:28 WBC 5.3 (4.3-11.1) K/mcL Hgb 11.4 L D (11.5-15.4) g/dL Hct 36.3 (35.3-44.9) % Plt Count 102 L (140-400) K/mcL Neutrophils # 4.2 (1.6-8.9) K/mcL BMP 04/02/18 04:00 Sodium 138 Potassium 3.5 Chloride 105 Carbon Dioxide 25 BUN 14 Creatinine 0.78 Glucose 77 Calcium 7.9 L Consult Discharge Plan - Plan Instructions: Urinary Tract Infection in Women (DC) Referrals: Braden Garibay MD [Primary Care Provider] - Palliative Quality Palliative Quality: Screen for Code Status: Yes, Screen for Goals of Care: Yes, Screen for Pain: Yes, Screen for Nausea/Vomitting: Yes Code Status: Full Code
[2018-04-02] MEDS: Budesonide/Formoterol 160/4.5 1 PUFF INH IH SCH ×2 (11:05→20:48)
[2018-04-02] MEDS: CALCITRIOL 0.5 MCG PO SCH (12:15)
[2018-04-02] MEDS: Sennosides 8.6 MG TABLET PO SCH ×2 (12:40→21:11)
--- NOTE | 2018-04-02 15:29 | Internal Med Progress Note ---
Hospitalist Progress Note - Encounter Date of Encounter: 04/02/18 Time of Encounter: 15:27 - Subjective Interval History: Patient sitting in the bed, eating lunch. She has no complaints. - Exam Vitals: Temp Pulse Resp BP Pulse Ox 98.6 F 64 15 91/56 95 04/02/18 11:13 04/02/18 11:13 04/02/18 11:13 04/02/18 11:13 04/02/18 11:13 Exam: General: Alert and oriented x2 Skin:Normal color, no rash, no lesions. HEENT:EOM, pupils equal, round and reactive. Cardiovascular: irregular S1 & S2, no rubs, murmurs or gallops. No JVD. Pulse regular. Lungs:Normal breath sounds, no wheezes or crackles. Abdomen:Soft, non-tender, no rigidity. Extremities:No deformity, no edema or tenderness, no joint swelling or clubbing. Neurological:Normal cognition and motor skills. Pulses:Carotid and radial pulses normal +2. Rest of the physical exam is non contributory. - Assessment and Plan (1) Celiac disease Current Visit: No Status: Chronic Assessment and Plan: 1hx of celiac disease- nutrition consulted, gluten free diet (2) Hypothyroidism Current Visit: No Status: Chronic Assessment and Plan: S/P thyroid surgery and parathyroid removed . On calcitrol was hospitalized with hypercalcemia around December 2014- on calcitrol 2.5mcg po every 48hrs - currently this is not on formulary -patient has been refusing mediations (3) Thrombocytopenia Current Visit: No Status: Chronic Assessment and Plan: this is chronic - monitor for s/sx of bleeding (4) UTI (urinary tract infection) Current Visit: Yes Status: Resolved Assessment and Plan: On nitrofurantoin prophylactically for ecoli UTI. Will hold nitrofurantoin. ER UA shows large leukocyte esterase. Urine culture growing Proteus mirabilis E coli-sensitive to Rocephin received 3 day course (5) Hypoxia Current Visit: No Status: Acute Assessment and Plan: 1 Patient is requiring oxygen- when O@ remove she drops to 87% she is not normally on O2 we will CXR did show some mild pulmonary congestion will give lasix CT of chest did show Medial right middle lobe and left lower lobe consolidation may reflect pneumonia. cont with O2 echo results LVEF 60%. Normal LV chamber size, wall thickness and function. Indeterminate diastolic function. Normal right ventricular structure and function. Mild mitral regurgitation. Mild tricuspid regurgitation. Mild pulmonary hypertension. (6) Failure to thrive Current Visit: Yes Status: Acute Assessment and Plan: Nutrition consult ordered for supplementation recommendations- ensure Patient states she does not have an appetite she has been refusing pills however will take him with much coaxing and in applesauce Will closely monitor I/O if cont not to eat will consider possible Megace - will have nursing assist with feeding - mechanical soft Palliative consulted for goals of care /code status (7) Dehydration Current Visit: Yes Status: Acute Assessment and Plan: she has poor oral intake -closely monitor I/O Monitor labs and replace electrolytes . (8) Elevated troponin Current Visit: Yes Status: Resolved (9) Atrial fibrillation Current Visit: Yes Status: Acute (10) Atrial fibrillation with RVR Current Visit: Yes Status: Acute Assessment and Plan: patient has a hx of atrial fibrillation- she is on metoprolol 25 mg po BID at home- She has been experiencing hypotension and her metoprolol has been held. Patient is not on any anticoagulatoin she does have a hx of anemia and thrombocytopenia Resumed metoprolol rate controlledat this time (11) Protein calorie malnutrition Current Visit: No Status: Acute Assessment and Plan: According to family patient has had a poor appetite - She was treated for UTI and did not eat for a week. She cont ot have poor appetite- dietary has been consulted for supplement Patient intiated on megace Pallative consulted to discuss care goals (12) Pleural effusion Current Visit: Yes Status: Acute Assessment and Plan: has had hypoxia - she has received IVF dt dehydration- CXR did show some mild vascular congestion and pleural effusion- Lasix was given X1 we will cont to monitor Cont o2 to maintain spo2>92% (13) Pneumonia Current Visit: Yes Status: Acute Assessment and Plan: Has had some hypoxia - cxr does show Medial right middle lobe and left lower lobe consolidation may reflect pneumonia. Blood cultures ordered Rocephine given cont with O2 Duo nebs DVT Prophylaxis: SCDs. - Time Spent with Patient Total time spent is greater than 50% in coordination of care (as documented) at patient's floor/unit and/or counseling patient: Greater than 35 minutes Plan of Care Discussed with: patient Internal Medicine: Result - Labs CBC & Chem 7: 04/02/18 06:28 04/02/18 04:00 Labs: Short CBC 04/02/18 Range/Units 06:28 WBC 5.3 (4.3-11.1) K/mcL Hgb 11.4 L D (11.5-15.4) g/dL Hct 36.3 (35.3-44.9) % Plt Count 102 L (140-400) K/mcL Neutrophils # 4.2 (1.6-8.9) K/mcL BMP 04/02/18 04:00 Sodium 138 Potassium 3.5 Chloride 105 Carbon Dioxide 25 BUN 14 Creatinine 0.78 Glucose 77 Calcium 7.9 L - VTE Documentation of Mechanical Device: Intermittent pneumatic compression device Consult Discharge Plan - Plan Instructions: Urinary Tract Infection in Women (DC) Referrals: Braden Garibay MD [Primary Care Provider] - (2) Hypothyroidism Qualifiers: Hypothyroidism type: unspecified Qualified Code(s): E03.9 - Hypothyroidism, unspecified (4) UTI (urinary tract infection) Qualifiers: Urinary tract infection type: site unspecified Hematuria presence: with hematuria Qualified Code(s): N39.0 - Urinary tract infection, site not specified; R31.9 - Hematuria, unspecified (6) Failure to thrive Qualifiers: Failure to thrive age range: in adult Qualified Code(s): R62.7 - Adult failure to thrive (9) Atrial fibrillation Qualifiers: Atrial fibrillation type: chronic Qualified Code(s): I48.2 - Chronic atrial fibrillation (11) Protein calorie malnutrition Qualifiers: Protein-calorie malnutrition severity: unspecified severity Qualified Code(s) : E46 - Unspecified protein-calorie malnutrition
[2018-04-02] MEDS: Mirtazapine 15 MG TABLET PO SCH (21:11)
[2018-04-03] MEDS: Budesonide/Formoterol 160/4.5 1 PUFF INH IH SCH ×2 (07:40→22:55)
[2018-04-03] MEDS: Docusate Oral Soln 100 MG/10 ML UDC PO SCH ×2 (09:19→19:46)
[2018-04-03] MEDS: Megestrol Acetate 400 MG/10 ML UDC PO SCH (09:19)
[2018-04-03] MEDS: cefTRIAXone 1,000 MG in Water for inj. (sterile) 20 ML 10 ML IVP SCH (09:19)
[2018-04-03] MEDS: Lactobacillus 1 EACH CAP.SPRINK PO SCH ×2 (09:21→19:45)
[2018-04-03] MEDS: Folic Acid 1 MG TABLET PO SCH (09:21)
[2018-04-03] MEDS: Cholecalciferol (D-3) 1,000 UNIT TABLET PO SCH (09:21)
[2018-04-03] MEDS: Magnesium Oxide 400 MG TABLET PO SCH (09:21)
[2018-04-03] MEDS: Carbidopa/Levodopa 25/100 TABLET PO SCH ×2 (09:21→19:46)
[2018-04-03] MEDS: Azelastine 0.1% Nasal Spray 30 ML BOTTLE NS SCH ×2 (09:22→19:45)
[2018-04-03] MEDS: Azithromycin 500 MG in D5% in Water 250 ML IVPB SCH (11:26)
--- NOTE | 2018-04-03 12:37 | Internal Med Progress Note ---
Hospitalist Progress Note - Encounter Date of Encounter: 04/03/18 Time of Encounter: 12:35 - Subjective Interval History: Patient sitting in the bed, eating lunch. She has no complaints. - Exam Vitals: Temp Pulse Resp BP Pulse Ox 99.7 F H 91 15 103/66 94 04/03/18 11:20 04/03/18 11:20 04/03/18 11:20 04/03/18 11:20 04/03/18 11:20 Exam: General: Alert and oriented x2 Skin:Normal color, no rash, no lesions. HEENT:EOM, pupils equal, round and reactive. Cardiovascular: irregular S1 & S2, no rubs, murmurs or gallops. No JVD. Pulse regular. Lungs:Normal breath sounds, no wheezes or crackles. Abdomen:Soft, non-tender, no rigidity. Extremities:No deformity, no edema or tenderness, no joint swelling or clubbing. Neurological:Normal cognition and motor skills. Pulses:Carotid and radial pulses normal +2. Rest of the physical exam is non contributory. - Assessment and Plan (1) Celiac disease Current Visit: No Status: Chronic Assessment and Plan: 1hx of celiac disease- nutrition consulted, gluten free diet (2) Hypothyroidism Current Visit: No Status: Chronic Assessment and Plan: S/P thyroid surgery and parathyroid removed . On calcitrol was hospitalized with hypercalcemia around December 2014- on calcitrol 2.5mcg po every 48hrs - currently this is not on formulary -patient has been refusing mediations (3) Thrombocytopenia Current Visit: No Status: Chronic Assessment and Plan: this is chronic - monitor for s/sx of bleeding (4) UTI (urinary tract infection) Current Visit: Yes Status: Resolved Assessment and Plan: On nitrofurantoin prophylactically for ecoli UTI. Will hold nitrofurantoin. ER UA shows large leukocyte esterase. Urine culture growing Proteus mirabilis E coli-sensitive to Rocephin received 3 day course (5) Hypoxia Current Visit: No Status: Acute Assessment and Plan: 1 Patient is requiring oxygen- when O@ remove she drops to 87% she is not normally on O2 we will CXR did show some mild pulmonary congestion will give lasix CT of chest did show Medial right middle lobe and left lower lobe consolidation may reflect pneumonia. cont with O2 echo results LVEF 60%. Normal LV chamber size, wall thickness and function. Indeterminate diastolic function. Normal right ventricular structure and function. Mild mitral regurgitation. Mild tricuspid regurgitation. Mild pulmonary hypertension. (6) Failure to thrive Current Visit: Yes Status: Acute Assessment and Plan: Nutrition consult ordered for supplementation recommendations- ensure Patient states she does not have an appetite she has been refusing pills however will take him with much coaxing and in applesauce Will closely monitor I/O if cont not to eat will consider possible Megace - will have nursing assist with feeding - mechanical soft appetite improved. (7) Dehydration Current Visit: Yes Status: Resolved (8) Elevated troponin Current Visit: Yes Status: Resolved (9) Atrial fibrillation Current Visit: Yes Status: Acute Assessment and Plan: 1 patient has a hx of atrial fibrillation- she is on metoprolol 25 mg po BID at home- She has been experiencing hypotension and her metoprolol has been held. She is not any anticoagulation she has hx of anemia and thrombocytopenia Sh did have some Afib RVR I duid resume her metoprolol - rate has improved will monitor echo results LVEF 60%. Normal LV chamber size, wall thickness and function. Indeterminate diastolic function. Normal right ventricular structure and function. Mild mitral regurgitation. Mild tricuspid regurgitation. Mild pulmonary hypertension. (10) Atrial fibrillation with RVR Current Visit: Yes Status: Acute Assessment and Plan: patient has a hx of atrial fibrillation- she is on metoprolol 25 mg po BID at home- She has been experiencing hypotension and her metoprolol has been held. Patient is not on any anticoagulatoin she does have a hx of anemia and thrombocytopenia Resumed metoprolol rate controlledat this time (11) Protein calorie malnutrition Current Visit: No Status: Acute Assessment and Plan: According to family patient has had a poor appetite - She was treated for UTI and did not eat for a week. She cont ot have poor appetite- dietary has been consulted for supplement Patient intiated on megace, appetite improved. Pallative consulted, POA and family refused PEG placement at this point. Pt will be remain full code. (12) Pleural effusion Current Visit: Yes Status: Acute Assessment and Plan: has had hypoxia - she has received IVF dt dehydration- CXR did show some mild vascular congestion and pleural effusion- Lasix was given X1 we will cont to monitor Cont o2 to maintain spo2>92% (13) Pneumonia Current Visit: Yes Status: Acute Assessment and Plan: Has had some hypoxia - cxr does show Medial right middle lobe and left lower lobe consolidation may reflect pneumonia. Blood cultures ordered Rocephine given cont with O2 Duo nebs DVT Prophylaxis: SCDs. - Time Spent with Patient Total time spent is greater than 50% in coordination of care (as documented) at patient's floor/unit and/or counseling patient: Greater than 35 minutes Plan of Care Discussed with: patient Internal Medicine: Result - Labs CBC & Chem 7: 04/02/18 06:28 04/02/18 04:00 - VTE Documentation of Mechanical Device: Intermittent pneumatic compression device Consult Discharge Plan - Plan Instructions: Urinary Tract Infection in Women (DC) Referrals: Braedn Garibay MD [Primary Care Provider] - (2) Hypothyroidism Qualifiers: Hypothyroidism type: unspecified Qualified Code(s): E03.9 - Hypothyroidism, unspecified (4) UTI (urinary tract infection) Qualifiers: Urinary tract infection type: site unspecified Hematuria presence: with hematuria Qualified Code(s): N39.0 - Urinary tract infection, site not specified; R31.9 - Hematuria, unspecified (6) Failure to thrive Qualifiers: Failure to thrive age range: in adult Qualified Code(s): R62.7 - Adult failure to thrive (9) Atrial fibrillation Qualifiers: Atrial fibrillation type: chronic Qualified Code(s): I48.2 - Chronic atrial fibrillation (11) Protein calorie malnutrition Qualifiers: Protein-calorie malnutrition severity: unspecified severity Qualified Code(s) : E46 - Unspecified protein-calorie malnutrition (13) Pneumonia Qualifiers: Pneumonia type: due to unspecified organism Laterality: bilateral Lung location: unspecified part of lung Qualified Code(s): J18.9 - Pneumonia, unspecified organism
--- NOTE | 2018-04-03 14:22 | Palliative Progress Note ---
Date of Encounter: 04/03/18 Time of Encounter: 13:45 - Assessment and plan (1) Decreased oral intake Current Visit: Yes Status: Acute Assessment and plan: Patient eating lunch and tolerating food brought in by family. Consuming Ensure supplements. Megace daily. (2) Goals of care, counseling/discussion Current Visit: Yes Status: Acute Assessment and plan: Patient remains FULL CODE and patient clarified that she would desire FULL CODE despite frail state. Education provided about risk of having CPR and she verbalized understanding. Plan is for patient to return to [facility]. Dr. Garibay is PCP and patient will f/u outpatient. UTI resolving with antibiotics. Reports feeling better. Will have rehab in [facility] for strength building. (3) Constipation Current Visit: Yes Status: Acute Assessment and plan: Patient had no BM with addition on Senna yesterday. Request to not have Miralax as this is hard to drink for her. Will add am dose of Senna. Monitor I&O. Qualifiers: Constipation type: unspecified constipation type Qualified Code(s): K59.00 - Constipation, unspecified (4) Atrial fibrillation with RVR Current Visit: Yes Status: Acute (5) COPD (chronic obstructive pulmonary disease) Current Visit: No Status: Chronic Qualifiers: COPD type: unspecified COPD Qualified Code(s): J44.9 - Chronic obstructive pulmonary disease, unspecified (6) Celiac disease Current Visit: No Status: Chronic Assessment and plan: Dietary consulted, meals gluten free. - Time Spent With Patient Total time spent is greater than 50% in coordination of care (as documented) at patient's floor/unit and/or counseling patient: less than 15 minutes - Subjective Interval history: Patient sitting up in bed. Consuming lunch. Tolerating noodles well. Denies pain or discomfort. No BM noted from yesterdays pm dose of Senna. Patient denies feeling full and reports appetite is better. Consuming Ensure supplement. - Constitutional Vitals: Abnormal lab results Hgb 11.4 g/dL (11.5-15.4) L D 04/02/18 06:28 MCHC 31.4 g/dL (31.6-35.5) L 04/02/18 06:28 RDW 15.6 % (11.5-14.5) H 04/02/18 06:28 Plt Count 102 K/mcL (140-400) L 04/02/18 06:28 Immature Plt Fraction 9.0 % (1.1-6.1) H 04/02/18 06:28 Calcium 7.9 mg/dL (8.6-10.3) L 04/02/18 04:00 Total Bilirubin 1.1 mg/dL (0.3-1.0) H 03/25/18 09:54 AST 12 Units/L (13-39) L 03/25/18 09:54 ALT 3 Units/L (7-52) L 03/25/18 09:54 Albumin/Globulin Ratio 1.0 (1.1-2.2) L 03/25/18 09:54 Free T3 2.44 pg/mL (2.50-3.90) L 03/25/18 09:54 PTH Intact < 1.0 pg/ml (10.0-65.0) L 03/27/18 05:32 Urine Clarity Turbid (Clear) A 03/25/18 11:23 Urine Protein 100 mg/dL (Neg-Trace) H 03/25/18 11:23 Urine Ketones Trace mg/dL (Negative) H 03/25/18 11:23 Urine Blood Moderate (Negative) H 03/25/18 11:23 Ur Leukocyte Esterase Large (Negative) H 03/25/18 11:23 Urine Microscopic WBC TNTC per hpf (0-3) H 03/25/18 11:23 Urine Bacteria Many per hpf (None-Few) H 03/25/18 11:23 Ur Culture Indicated? YES (NO) A 03/25/18 11:23 - Head Head exam: Present: atraumatic, normal inspection, normocephalic - Eye Eye exam: Present: PERRL Pupils: Present: PERRL - ENT ENT exam: Present: mucous membranes moist - Neck Neck exam: Present: full ROM - Respiratory Respiratory exam: Present: decreased breath sounds - Expanded Respiratory Exam Location: decreased breath sounds: Left, Right, Lower - Cardiovascular Cardiovascular exam: Present: RRR, +S1, +S2 - GI/Abdominal GI/Abdominal exam: Present: normal bowel sounds, soft - Rectal Rectal exam: Present: deferred - Extremities Exam Extremities exam: Present: full ROM - Neurological Exam Neurological exam: Present: alert Additional comments: Oriented to place and person. - Psychiatric Psychiatric exam: Present: flat affect - Skin Skin exam: Present: pallor, warm Palliative Quality Palliative Quality: Screen for Code Status: Yes, Screen for Goals of Care: Yes, Screen for Pain: Yes, Screen for Nausea/Vomitting: Yes - Labs CBC & Chem 7: 04/02/18 06:28 04/02/18 04:00 Labs: Laboratory Results - last 24 hr 04/02/18 21:36 POC Glucose 85 Consult Discharge Plan - Plan Instructions: Urinary Tract Infection in Women (DC) Referrals: Braden Garibay MD [Primary Care Provider] -
[2018-04-03] MEDS: Sennosides 8.6 MG TABLET PO SCH ×2 (17:55→20:03)
[2018-04-03] MEDS: Mirtazapine 15 MG TABLET PO SCH (19:45)
[2018-04-03] MEDS ORDERED: 0.9 % Sodium Chloride 250 ML IVC ONE (21:28)
[2018-04-03] MEDS ORDERED: 0.9 % Sodium Chloride 500 ML IVC ONE (23:20)
[2018-04-04] MEDS: Budesonide/Formoterol 160/4.5 1 PUFF INH IH SCH (07:41)
[2018-04-04] MEDS ORDERED: Bisacodyl 10 MG RECTAL SUPPOSITORY RC PRN (09:48)
[2018-04-04] MEDS: Lactobacillus 1 EACH CAP.SPRINK PO SCH (09:51)
[2018-04-04] MEDS: Sennosides 8.6 MG TABLET PO SCH (09:51)
--- NOTE | 2018-04-04 09:51 | Event Note ---
Date of Encounter: 04/04/18 Time of Encounter: 09:45 Patient states she is feeling well except for generalized weakness. Still no BM - did add Dulcolax suppository to be given this am and daily as needed. Continue Senokot - may increase to 2 tabs BID if bowels do not move today. Goals of care conversations have been completed - pt desires to remain full code. Will be going to [facility] for rehab. Palliative will sign off. Please reconsult if needed.
[2018-04-04] MEDS: Carbidopa/Levodopa 25/100 TABLET PO SCH (09:52)
[2018-04-04] MEDS: Folic Acid 1 MG TABLET PO SCH (09:52)
[2018-04-04] MEDS: Cholecalciferol (D-3) 1,000 UNIT TABLET PO SCH (09:52)
[2018-04-04] MEDS: Magnesium Oxide 400 MG TABLET PO SCH (09:52)
[2018-04-04] MEDS: Docusate Oral Soln 100 MG/10 ML UDC PO SCH (09:53)
[2018-04-04] MEDS: Megestrol Acetate 400 MG/10 ML UDC PO SCH (09:53)
[2018-04-04] MEDS: Azelastine 0.1% Nasal Spray 30 ML BOTTLE NS SCH (09:53)
[2018-04-04] MEDS ORDERED: Bisacodyl 10 MG RECTAL SUPPOSITORY RC ONE (10:00)
[2018-04-04 11:43] VITALS: BP 105/72
--- NOTE | 2018-04-04 12:03 | Discharge Summary ---
- NOTES TO OUTPATIENT PROVIDER Notes to Outpatient Provider: f/u with PCP within 2-3 weeks. Date of Encounter: 04/04/18 Time of Encounter: 11:56 - Discharge Diagnosis (1) Celiac disease Priority: Secondary Status: Chronic Assessment and Plan: 1hx of celiac disease- nutrition consulted, gluten free diet (2) Hypothyroidism Priority: Secondary Status: Chronic Assessment and Plan: S/P thyroid surgery and parathyroid removed . On calcitrol was hospitalized with hypercalcemia around December 2014- on calcitrol 2.5mcg po every 48hrs - currently this is not on formulary -patient has been refusing mediations Qualifiers: Hypothyroidism type: unspecified Qualified Code(s): E03.9 - Hypothyroidism , unspecified (3) Thrombocytopenia Priority: Secondary Status: Chronic Assessment and Plan: this is chronic - monitor for s/sx of bleeding (4) UTI (urinary tract infection) Priority: Primary Status: Resolved Assessment and Plan: On nitrofurantoin prophylactically for ecoli UTI. Will hold nitrofurantoin. ER UA shows large leukocyte esterase. Urine culture growing Proteus mirabilis E coli-sensitive to Rocephin received 3 day course Qualifiers: Urinary tract infection type: site unspecified Hematuria presence: with hematuria Qualified Code(s): N39.0 - Urinary tract infection, site not specified; R31.9 - Hematuria, unspecified (5) Hypoxia Priority: Primary Status: Resolved Assessment and Plan: 1 Patient is requiring oxygen- when O@ remove she drops to 87% she is not normally on O2 we will CXR did show some mild pulmonary congestion will give lasix CT of chest did show Medial right middle lobe and left lower lobe consolidation may reflect pneumonia. cont with O2 echo results LVEF 60%. Normal LV chamber size, wall thickness and function. Indeterminate diastolic function. Normal right ventricular structure and function. Mild mitral regurgitation. Mild tricuspid regurgitation. Mild pulmonary hypertension. (6) Failure to thrive Priority: Primary Status: Acute Assessment and Plan: Nutrition consult ordered for supplementation recommendations- ensure Patient states she does not have an appetite she has been refusing pills however will take him with much coaxing and in applesauce Will closely monitor I/O if cont not to eat will consider possible Megace - will have nursing assist with feeding - mechanical soft appetite improved. Qualifiers: Failure to thrive age range: in adult Qualified Code(s): R62.7 - Adult failure to thrive (7) Dehydration Priority: Primary Status: Resolved Assessment and Plan: she has poor oral intake -closely monitor I/O Monitor labs and replace electrolytes . (8) Elevated troponin Priority: Primary Status: Resolved Assessment and Plan: Elevated troponin in ER. Serial troponins ordered flat adynamic suspect rt to infection will monitor- no CP voiced (9) Atrial fibrillation Priority: Secondary Status: Chronic Assessment and Plan: 1 patient has a hx of atrial fibrillation- she is on metoprolol 25 mg po BID at home- She has been experiencing hypotension and her metoprolol has been held. She is not any anticoagulation she has hx of anemia and thrombocytopenia Sh did have some Afib RVR I duid resume her metoprolol - rate has improved will monitor echo results LVEF 60%. Normal LV chamber size, wall thickness and function. Indeterminate diastolic function. Normal right ventricular structure and function. Mild mitral regurgitation. Mild tricuspid regurgitation. Mild pulmonary hypertension. Qualifiers: Atrial fibrillation type: chronic Qualified Code(s): I48.2 - Chronic atrial fibrillation (10) Atrial fibrillation with RVR Priority: Secondary Status: Chronic Assessment and Plan: patient has a hx of atrial fibrillation- she is on metoprolol 25 mg po BID at home- She has been experiencing hypotension and her metoprolol has been held. Patient is not on any anticoagulatoin she does have a hx of anemia and thrombocytopenia Resumed metoprolol rate controlledat this time (11) Protein calorie malnutrition Priority: Primary Status: Acute Assessment and Plan: According to family patient has had a poor appetite - She was treated for UTI and did not eat for a week. She cont ot have poor appetite- dietary has been consulted for supplement Patient intiated on megace, appetite improved. Pallative consulted, POA and family refused PEG placement at this point. Pt will be remain full code. Qualifiers: Protein-calorie malnutrition severity: unspecified severity Qualified Code( s): E46 - Unspecified protein-calorie malnutrition (12) Pleural effusion Priority: Primary Status: Acute Assessment and Plan: has had hypoxia - she has received IVF dt dehydration- CXR did show some mild vascular congestion and pleural effusion- Lasix was given X1 we will cont to monitor Cont o2 to maintain spo2>92% (13) Pneumonia Priority: Primary Status: Suspected Assessment and Plan: Has had some hypoxia - cxr does show Medial right middle lobe and left lower lobe consolidation may reflect pneumonia. Blood cultures ordered Rocephine given cont with O2 Duo nebs Qualifiers: Pneumonia type: due to unspecified organism Laterality: bilateral Lung location: unspecified part of lung Qualified Code(s): J18.9 - Pneumonia, unspecified organism Hospital course: Ms. Griffin is a 82 year old female with past medical history significant for hypothyroidism, atrial fibrillation, celiac disease, COPD, and dementia presented with generalized weakness, poor appetite, and f failure to thrive. Patient underwent extensive workup which includes radiological image, echocardiogram, and lab tests. She was found to have a UTI, urine culture grows Proteus and Escherichia coli, sensitive to Rocephin. She was treated with IV Rocephin for 5 days. Vitamin D level was reportedly low, she received vitamin D supplement. She also was found to have possible pneumonia, which was treated with IV antibiotics. She has no cough, fever, or sputum production upon discharge. However, patient general condition including poor appetite, calorie protein malnutrition, and a failure to thrive remained unchanged during the hospital stay. Palliative care was consulted, lengthy discussion about prognosis and the treatment/care plan was completed with family and patient. They wish patient to remain full code, they refused the recommendation for PEG tube placement, they would like the patient to go back to the ECF upon discharge. Patient main issue is poor oral intake and malnutrition. Family was educated to supervise when patient eats, patient needs frequent encouragement/health care coach. She was also started on Megace with improvement of appetite, continue this medication after patient goes back to ECF. She will be discharged back to ECF today. Her general condition including vital signs were stable. Discharge discussed with: patient, family, nurse, social work, case management Time spent discussing smoking cessation with patient: more than 10 minutes - Time Spent with Patient Total time spent providing and/or coordinating discharge services: Greater than 30 minutes - Discharge Medications Prescriptions: Bisacodyl [Dulcolax] 10 mg RC DAILY PRN #30 supp.rect PRN Reason: Constipation Cholecalciferol (D-3) [Vitamin D] 1,000 unit PO DAILY #30 tablet Megestrol Acetate [Megace] 800 mg PO DAILY #30 bottle Metoprolol [Lopressor] 25 mg PO BID #30 tablet Home Medications: Acetaminophen [Tylenol] 650 mg PO Q6HR PRN 09/14/15 [History] Budesonide/Formoterol 160/4.5 [Symbicort 160/4.5] 2 puff IH BIDR 09/14/15 [ History] Calcitriol 2.5 mcg PO Q48H 09/14/15 [History] Docusate [Colace] 100 mg PO BID 09/14/15 [History] Folic Acid 1 mg PO DAILY 09/14/15 [History] Magnesium Oxide [Magnesium] 400 mg PO DAILY 09/14/15 [History] Memantine HCl [Namenda Xr] 28 mg PO DAILY 09/14/15 [History] Mirtazapine [Remeron] 7.5 mg PO HS 09/14/15 [History] Omeprazole [PriLOSEC] 20 mg PO DAILY 09/14/15 [History] Paroxetine HCl 10 mg PO DAILY 09/14/15 [History] Azelastine 0.1% Nasal [place] [Astelin] 2 spr NS BID 05/19/17 [History] Carbidopa/Levodopa ER 50/200 [Sinemet ER 50-200 Tab] 1 tab PO BID 05/19/17 [ History] Lactobacillus Acidophilus [Acidophilus] 1 cap PO BID 05/19/17 [History] Magnesium Hydroxide [Milk of Magnesia] 30 ml PO DAILY PRN 05/19/17 [History] Na Phos,M-B/Na Phos,Di-Ba [Fleet Enema Extra] 1 each RC Q48H PRN 05/19/17 [ History] Albuterol Sulfate [Ventolin Hfa] 2 puff IH Q4-6H PRN 05/24/17 [History] Levothyroxine [Synthroid] 150 mcg PO DAILY 02/28/18 [History] Quetiapine Fumarate [Seroquel] 12.5 mg PO BID 02/28/18 [History] Calcium Carbonate/Vitamin D3 [Calcium 600-Vit D3 400 Tablet] 1 tab PO DAILY [History] LORazepam [Ativan] 0.5 mg PO DAILY PRN 03/25/18 [History] Tramadol HCl [Ultram] 50 - 100 mg PO TID PRN 03/25/18 [History] Carbidopa/Levodopa 25/100 [Sinemet 25/100] 1 each PO BID tablet 03/31/18 [Rx] Bisacodyl [Dulcolax] 10 mg RC DAILY PRN #30 supp.rect 04/04/18 [Rx] Cholecalciferol (D-3) [Vitamin D] 1,000 unit PO DAILY #30 tablet 04/04/18 [Rx] Megestrol Acetate [Megace] 800 mg PO DAILY #30 bottle 04/04/18 [Rx] Metoprolol [Lopressor] 25 mg PO BID #30 tablet 04/04/18 [Rx] Patient Taking Own Medication 0 each PO Q48H each 04/04/18 [Rx] Allergies/Adverse Reactions: 3 Allergy/AdvReac Type Severity Reaction Status Date / Time Amoxicillin Allergy unknown Verified 02/28/18 15:07 atropine Allergy unknown Verified 02/28/18 15:07 Diphenoxylate Allergy unknown Verified 02/28/18 15:07 enalapril Allergy unknown Verified 02/28/18 15:07 esomeprazole Allergy inknown Verified 02/28/18 15:07 gluten Allergy Diarrhea Verified 04/03/18 14:47 Hydromorphone Allergy unknown Verified 02/28/18 15:07 Iodinated Contrast- Oral and Allergy unknown Verified 02/28/18 15:07 IV Dye [Iodinated Contrast Media - IV Dye] nitrofurantoin Allergy unknown Verified 02/28/18 15:07 Penicillins Allergy unkown Verified 02/28/18 15:07 piroxicam Allergy unknown Verified 02/28/18 15:07 Sulfa (Sulfonamide Allergy unknown Verified 02/28/18 15:07 Antibiotics) Date of admission: 03/27/18 17:32 Primary care physician: Braden Garibay MD Consults: 03/28/18 09:24 Consult to Physical Therapy [CONS] Routine Comment: Evaluate, develop and implement POC Reason for Consult: patient been on bedrest on admission Does patient have active BEDREST order?: No Is patient medically & hemodynamically stable?: Yes Patient assessed for mobility or mobilized this visit?: Yes 04/01/18 21:59 Consult to Palliative Care [CONS] Routine Comment: Consulting Provider: [facility] [place] Reason for Consult: failure to thrive - care goal- code status Time Notified: 16:59 Call Completed: Yes Anticipated date of discharge: 04/04/18 - Constitutional Vitals: Temp Pulse Resp BP Pulse Ox 97.8 F 77 16 105/72 97 04/04/18 11:42 04/04/18 11:42 04/04/18 11:42 04/04/18 11:42 04/04/18 11:42 General appearance: Present: A&O X 1, pleasant Exam: General: Alert and oriented x2 Skin:Normal color, no rash, no lesions. HEENT:EOM, pupils equal, round and reactive. Cardiovascular: irregular S1 & S2, no rubs, murmurs or gallops. No JVD. Pulse regular. Lungs:Normal breath sounds, no wheezes or crackles. Abdomen:Soft, non-tender, no rigidity. Extremities:No deformity, no edema or tenderness, no joint swelling or clubbing. Neurological:Normal cognition and motor skills. Pulses:Carotid and radial pulses normal +2. Rest of the physical exam is non contributory. - Patient Status Disposition: Transfer SNF Condition: Fair Functional capacity at discharge: bed bound Overall status at discharge: patient is progressing back to baseline - Discharge Instructions Instructions: Urinary Tract Infection in Women (DC) Follow Up With: Braden Garibay MD [Primary Care Provider] - - Diet and Activity Activity: increase activity as tolerated Diet: low fat, low cholesterol, low salt diet - VTE Documentation of Mechanical Device: Intermittent pneumatic compression device
--- NOTE | 2018-04-04 12:06 | Physician Discharge Referral ---
ExtendedCare Referral Info Transfer To: ECF Provider in Charge after Transfer: PCP Institutional Level of Care: Skilled - Diagnosis (1) Celiac disease Priority: Secondary Status: Chronic (2) Hypothyroidism Priority: Secondary Status: Chronic (3) Thrombocytopenia Priority: Secondary Status: Chronic (4) UTI (urinary tract infection) Priority: Primary Status: Resolved (5) Hypoxia Priority: Primary Status: Resolved (6) Failure to thrive Priority: Primary Status: Acute (7) Dehydration Priority: Primary Status: Resolved (8) Elevated troponin Priority: Primary Status: Resolved (9) Atrial fibrillation Priority: Secondary Status: Chronic (10) Atrial fibrillation with RVR Priority: Secondary Status: Chronic (11) Protein calorie malnutrition Priority: Primary Status: Acute (12) Pleural effusion Priority: Secondary Status: Acute (13) Pneumonia Priority: Primary Status: Suspected Prognosis: Poor Aware of Diagnosis: Patient, Family Aware of Prognosis: Patient, Family - Transfer Medications Prescriptions: Bisacodyl [Dulcolax] 10 mg RC DAILY PRN #30 supp.rect PRN Reason: Constipation Cholecalciferol (D-3) [Vitamin D] 1,000 unit PO DAILY #30 tablet Megestrol Acetate [Megace] 800 mg PO DAILY #30 bottle Metoprolol [Lopressor] 25 mg PO BID #30 tablet Home Medications: Acetaminophen [Tylenol] 650 mg PO Q6HR PRN 09/14/15 [History] Budesonide/Formoterol 160/4.5 [Symbicort 160/4.5] 2 puff IH BIDR 09/14/15 [ History] Calcitriol 2.5 mcg PO Q48H 09/14/15 [History] Docusate [Colace] 100 mg PO BID 09/14/15 [History] Folic Acid 1 mg PO DAILY 09/14/15 [History] Magnesium Oxide [Magnesium] 400 mg PO DAILY 09/14/15 [History] Memantine HCl [Namenda Xr] 28 mg PO DAILY 09/14/15 [History] Mirtazapine [Remeron] 7.5 mg PO HS 09/14/15 [History] Omeprazole [PriLOSEC] 20 mg PO DAILY 09/14/15 [History] Paroxetine HCl 10 mg PO DAILY 09/14/15 [History] Azelastine 0.1% Nasal [place] [Astelin] 2 spr NS BID 05/19/17 [History] Carbidopa/Levodopa ER 50/200 [Sinemet ER 50-200 Tab] 1 tab PO BID 05/19/17 [ History] Lactobacillus Acidophilus [Acidophilus] 1 cap PO BID 05/19/17 [History] Magnesium Hydroxide [Milk of Magnesia] 30 ml PO DAILY PRN 05/19/17 [History] Na Phos,M-B/Na Phos,Di-Ba [Fleet Enema Extra] 1 each RC Q48H PRN 05/19/17 [ History] Albuterol Sulfate [Ventolin Hfa] 2 puff IH Q4-6H PRN 05/24/17 [History] Levothyroxine [Synthroid] 150 mcg PO DAILY 02/28/18 [History] Quetiapine Fumarate [Seroquel] 12.5 mg PO BID 02/28/18 [History] Calcium Carbonate/Vitamin D3 [Calcium 600-Vit D3 400 Tablet] 1 tab PO DAILY [History] LORazepam [Ativan] 0.5 mg PO DAILY PRN 03/25/18 [History] Tramadol HCl [Ultram] 50 - 100 mg PO TID PRN 03/25/18 [History] Carbidopa/Levodopa 25/100 [Sinemet 25/100] 1 each PO BID tablet 03/31/18 [Rx] Bisacodyl [Dulcolax] 10 mg RC DAILY PRN #30 supp.rect 04/04/18 [Rx] Cholecalciferol (D-3) [Vitamin D] 1,000 unit PO DAILY #30 tablet 04/04/18 [Rx] Megestrol Acetate [Megace] 800 mg PO DAILY #30 bottle 04/04/18 [Rx] Metoprolol [Lopressor] 25 mg PO BID #30 tablet 04/04/18 [Rx] Patient Taking Own Medication 0 each PO Q48H each 04/04/18 [Rx] Allergies/Adverse Reactions: 3 Allergy/AdvReac Type Severity Reaction Status Date / Time Amoxicillin Allergy unknown Verified 02/28/18 15:07 atropine Allergy unknown Verified 02/28/18 15:07 Diphenoxylate Allergy unknown Verified 02/28/18 15:07 enalapril Allergy unknown Verified 02/28/18 15:07 esomeprazole Allergy inknown Verified 02/28/18 15:07 gluten Allergy Diarrhea Verified 04/03/18 14:47 Hydromorphone Allergy unknown Verified 02/28/18 15:07 Iodinated Contrast- Oral and Allergy unknown Verified 02/28/18 15:07 IV Dye [Iodinated Contrast Media - IV Dye] nitrofurantoin Allergy unknown Verified 02/28/18 15:07 Penicillins Allergy unkown Verified 02/28/18 15:07 piroxicam Allergy unknown Verified 02/28/18 15:07 Sulfa (Sulfonamide Allergy unknown Verified 02/28/18 15:07 Antibiotics) - Respiratory Orders Oxygen / L per min Smoking Cessation: Smoking cessation has been advised. For more information, call the [place] Tobacco Quit Line at 2-420-OWAO-NOW. - Advance Directives Code Status: Full Code - Mobility Orders Chair - Rehabiliation Orders Rehab Potential: Fair Rehab Orders: ROM Exercises - Treatments Skin tear care topically daily PRN per policy, May check for fecal impaction rectally daily PRN, Fleet enema rectally every other day PRN cleansing purposes - Diet Orders Mechanical Soft, Pureed CERTIFICATION: I certify that the transfer of the above named patient to an Extended Care Facility is necessary for the continuing treatment of the diagnosis listed. The above information is true and accurate reflection of patient's current condition. Confidential - Redisclosure prohibited without a patient's written consent.
--- NOTE | 2018-04-05 12:19 | Electrocardiograph Report ---
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
== END 2018-04-04 13:35 | DRG 689 ==
LOC: 3BNU 09:45 → EMEROOARM 09:45 → 3BNU 12:45
PROVIDERS: ADMIT Internal Medicine; ATTEND Internal Medicine

== ENCOUNTER 2018-04-25 17:54 | Observation (INO) ==
--- NOTE | 2018-04-25 18:13 | Emergency Department Note ---
Disposition Clinical Impression: UTI (urinary tract infection) Disposition: Admitted As Inpatient Condition: Fair General Adult HPI - General Stated complaint: UTI Time Seen by Provider: 04/25/18 17:57 Source: family, EMS Mode of arrival: EMS Limitations: other (dementia) Nursing Notes Reviewed: Yes Vital Signs Reviewed: Yes - History of Present Illness HPI Narrative: Patient is an 81-year-old female with past medical history of atrophic ablation , hypertension, thyroid disease, and dementia presents emergency department for evaluation of urinary tract infection. The patient was sent in by her physician of the longterm in which she resides with concerns for patient having a recurrent UTI that his [id number] patient has multiple drug allergies. Is requesting that the patient be admitted for IV antibiotics concerned that she needs vancomycin which he did not feel comfortable blistering at the longterm. Otherwise patient has at her baseline. - Related Data Home Medications Medication Instructions Recorded Confirmed Acetaminophen [Tylenol] 650 mg PO Q6HR PRN 09/14/15 04/25/18 Budesonide/Formoterol 160/4.5 2 puff IH BIDR 09/14/15 04/25/18 [Symbicort 160/4.5] Docusate [Colace] 100 mg PO BID 09/14/15 04/25/18 Folic Acid 1 mg PO DAILY 09/14/15 04/25/18 Magnesium Oxide [Magnesium] 400 mg PO DAILY 09/14/15 04/25/18 Memantine HCl [Namenda Xr] 28 mg PO DAILY 09/14/15 04/25/18 Omeprazole [PriLOSEC] 20 mg PO DAILY 09/14/15 04/25/18 Azelastine 0.1% Nasal [place] 2 spr NS BID 05/19/17 04/25/18 [Astelin] Carbidopa/Levodopa ER 50/200 1 tab PO BID 05/19/17 04/25/18 [Sinemet ER 50-200 Tab] Lactobacillus Acidophilus 1 cap PO BID 05/19/17 04/25/18 [Acidophilus] Magnesium Hydroxide [Milk of 30 ml PO DAILY PRN 05/19/17 04/25/18 Magnesia] Na Phos,M-B/Na Phos,Di-Ba [Fleet 1 each RC Q48H PRN 05/19/17 04/25/18 Enema Extra] Levothyroxine [Synthroid] 150 mcg PO DAILY 02/28/18 04/25/18 Quetiapine Fumarate [Seroquel] 25 mg PO HS 02/28/18 04/25/18 Mirtazapine 7.5 mg PO HS 04/25/18 04/25/18 Paroxetine HCl [Paxil] 20 mg PO DAILY 04/25/18 04/25/18 Previous Rx's Medication Instructions Recorded Bisacodyl [Dulcolax] 10 mg RC DAILY PRN #30 supp.rect 04/04/18 Megestrol Acetate [Megace] 800 mg PO DAILY #30 bottle 04/04/18 Metoprolol [Lopressor] 25 mg PO BID #30 tablet 04/04/18 Albuterol Sulfate [Ventolin Hfa] 2 puff IH Q4HR PRN #0 04/27/18 Calcium Carbonate/Vitamin D3 1 tab PO QID #0 04/27/18 [Calcium 600-Vit D3 400 Tablet] Allergies Allergy/AdvReac Type Severity Reaction Status Date / Time Amoxicillin Allergy unknown Verified 04/25/18 18:28 atropine Allergy unknown Verified 04/25/18 18:28 codeine Allergy See Verified 04/25/18 18:28 Comments Diphenoxylate Allergy unknown Verified 04/25/18 18:28 enalapril Allergy unknown Verified 04/25/18 18:28 esomeprazole Allergy inknown Verified 04/25/18 18:28 gluten Allergy Diarrhea Verified 04/25/18 18:28 Hydromorphone Allergy unknown Verified 04/25/18 18:28 Iodinated Contrast- Oral and Allergy unknown Verified 04/25/18 18:28 IV Dye [Iodinated Contrast Media - IV Dye] nitrofurantoin Allergy unknown Verified 04/25/18 18:28 Penicillins Allergy unkown Verified 04/25/18 18:28 piroxicam Allergy unknown Verified 04/25/18 18:28 Sulfa (Sulfonamide Allergy unknown Verified 04/25/18 18:28 Antibiotics) Past Medical History - Past Medical History Medical history: Reports: atrial fibrillation, dementia, GERD, hypertension, thyroid disease, other Surgical history: Reports: no surgical history, thyroidectomy Psychiatric history: Reports: anxiety, depression - Social History Smoking Status: Never smoker Smokeless Tobacco Status: No Alcohol use: Reports: none Drug use: Reports: none Course Vital Signs Temperature 98.5 F 04/25/18 18:03 Pulse Rate 80 04/25/18 18:03 Respiratory Rate 20 04/25/18 18:03 Blood Pressure 74/52 04/25/18 18:03 O2 Sat by Pulse Oximetry 100 04/25/18 18:03 Temperature 98.6 F 04/27/18 12:28 Pulse Rate 75 04/27/18 12:28 Respiratory Rate 16 04/27/18 12:28 Blood Pressure 125/77 04/27/18 12:28 O2 Sat by Pulse Oximetry 99 04/27/18 12:28 Oxygen Delivery Oxygen Delivery Room Air Medical Decision Making - Lab Data Result diagrams: 04/27/18 04:34 04/27/18 04:34 Lab Results 04/25/18 04/25/18 04/25/18 Range/Units 18:21 18:21 18:44 WBC 6.4 (4.3-11.1) K/mcL RBC 3.77 L (3.82-4.97) M/mcL Hgb 10.6 L (11.5-15.4) g/dL Hct 34.6 L (35.3-44.9) % MCV 91.8 (83.0-100.0) fL MCH 28.1 (28.0-33.3) pg MCHC 30.6 L (31.6-35.5) g/dL RDW 16.6 H (11.5-14.5) % Plt Count 103 L (140-400) K/mcL MPV 12.8 H (9.4-12.4) fL Immature Gran % 1.4 (0-4) % Seg Neutrophils % 69.3 % Lymphocytes % 21.1 % Monocytes % 6.3 % Eosinophils % 1.3 % Basophils % 0.6 % Neutrophils # 4.4 (1.6-8.9) K/mcL Lymphocytes # 1.3 (0.6-4.6) K/mcL Monocytes # 0.4 (0.0-1.3) K/mcL Eosinophils # 0.1 (0.0-0.6) K/mcL Basophils # 0.0 (0.0-0.2) K/mcL Sodium 136 (136-145) mEq/L Potassium 3.5 (3.5-5.1) mEq/L Chloride 109 H (98-107) mEq/L Carbon Dioxide 18 L (23-29) mEq/L BUN 26 H (8-23) mg/dL Creatinine 1.08 (0.60-1.20) mg/dL Est GFR ( Amer) 59 L (> 60) Est GFR (Non-Af Amer) 48 L (> 60) BUN/Creatinine Ratio 24 (6-26) Glucose 101 (70-105) mg/dL Calculated Osmolality 287 (280-300) Calcium 6.9 L (8.6-10.3) mg/dL Urine Color Yellow (Yellow) Urine Clarity Cloudy A (Clear) Urine pH 6.0 (5.0-8.0) pH Units Ur Specific [place] 1.016 (1.010-1.025) Urine Protein 30 H (Neg-Trace) mg/dL Urine Glucose (UA) Normal (Normal) mg/dL Urine Ketones Negative (Negative) mg/dL Urine Blood Moderate H (Negative) Urine Nitrite Positive A (Negative) Urine Bilirubin Small H (Negative) Urine Urobilinogen Normal (Normal) mg/dL Ur Leukocyte Esterase Large H (Negative) Urine Microscopic RBC 15-30 H (0-3) per hpf Urine Microscopic WBC TNTC H (0-3) per hpf Ur Squamous Epith Cells Many H (None-Few) per lpf Urine Bacteria Few (None-Few) per hpf Hyaline Casts None Seen (None-Few) per lpf Urine Yeast Few H (None Seen) per hpf Ur Culture Indicated? NO. A (NO)
--- NOTE | 2018-04-25 18:43 | Emergency Department Note ---
Disposition Clinical Impression: UTI (urinary tract infection) Qualifiers: Urinary tract infection type: site unspecified Hematuria presence: without hematuria Qualified Code(s): N39.0 - Urinary tract infection, site not specified Disposition: Admitted As Inpatient General Adult HPI - General Chief complaint: ED Urogenital-Female Stated complaint: UTI Time Seen by Provider: 04/25/18 17:57 Source: family, EMS Mode of arrival: EMS Limitations: other (dementia) - History of Present Illness Pain Scale: 0 - Related Data Home Medications Medication Instructions Recorded Confirmed Acetaminophen [Tylenol] 650 mg PO Q6HR PRN 09/14/15 04/25/18 Budesonide/Formoterol 160/4.5 2 puff IH BIDR 09/14/15 04/25/18 [Symbicort 160/4.5] Docusate [Colace] 100 mg PO BID 09/14/15 04/25/18 Folic Acid 1 mg PO DAILY 09/14/15 04/25/18 Magnesium Oxide [Magnesium] 400 mg PO DAILY 09/14/15 04/25/18 Memantine HCl [Namenda Xr] 28 mg PO DAILY 09/14/15 04/25/18 Mirtazapine [Remeron] 7.5 mg PO HS 09/14/15 04/25/18 Omeprazole [PriLOSEC] 20 mg PO DAILY 09/14/15 04/25/18 Paroxetine HCl 10 mg PO DAILY 09/14/15 04/25/18 Azelastine 0.1% Nasal [place] 2 spr NS BID 05/19/17 04/25/18 [Astelin] Carbidopa/Levodopa ER 50/200 1 tab PO BID 05/19/17 04/25/18 [Sinemet ER 50-200 Tab] Lactobacillus Acidophilus 1 cap PO BID 05/19/17 04/25/18 [Acidophilus] Magnesium Hydroxide [Milk of 30 ml PO DAILY PRN 05/19/17 04/25/18 Magnesia] Na Phos,M-B/Na Phos,Di-Ba [Fleet 1 each RC Q48H PRN 05/19/17 04/25/18 Enema Extra] Albuterol Sulfate [Ventolin Hfa] 2 puff IH Q4-6H PRN 05/24/17 04/25/18 Levothyroxine [Synthroid] 150 mcg PO DAILY 02/28/18 04/25/18 Quetiapine Fumarate [Seroquel] 12.5 mg PO BID 02/28/18 04/25/18 Calcium Carbonate/Vitamin D3 1 tab PO DAILY 03/25/18 04/25/18 [Calcium 600-Vit D3 400 Tablet] Previous Rx's Medication Instructions Recorded Bisacodyl [Dulcolax] 10 mg RC DAILY PRN #30 supp.rect 04/04/18 Cholecalciferol (D-3) [Vitamin D] 1,000 unit PO DAILY #30 tablet 04/04/18 Megestrol Acetate [Megace] 800 mg PO DAILY #30 bottle 04/04/18 Metoprolol [Lopressor] 25 mg PO BID #30 tablet 04/04/18 LORazepam [Ativan] 0.5 mg PO DAILY PRN 2 Days #2 04/08/18 tablet Tramadol HCl [Ultram] 50 - 100 mg PO TID PRN 2 Days #12 04/08/18 tablet Allergies Allergy/AdvReac Type Severity Reaction Status Date / Time Amoxicillin Allergy unknown Verified 04/25/18 18:28 atropine Allergy unknown Verified 04/25/18 18:28 codeine Allergy See Verified 04/25/18 18:28 Comments Diphenoxylate Allergy unknown Verified 04/25/18 18:28 enalapril Allergy unknown Verified 04/25/18 18:28 esomeprazole Allergy inknown Verified 04/25/18 18:28 gluten Allergy Diarrhea Verified 04/25/18 18:28 Hydromorphone Allergy unknown Verified 04/25/18 18:28 Iodinated Contrast- Oral and Allergy unknown Verified 04/25/18 18:28 IV Dye [Iodinated Contrast Media - IV Dye] nitrofurantoin Allergy unknown Verified 04/25/18 18:28 Penicillins Allergy unkown Verified 04/25/18 18:28 piroxicam Allergy unknown Verified 04/25/18 18:28 Sulfa (Sulfonamide Allergy unknown Verified 04/25/18 18:28 Antibiotics) Past Medical History - Past Medical History Medical history: Reports: atrial fibrillation, dementia, GERD, hypertension, thyroid disease, other Surgical history: Reports: no surgical history, thyroidectomy Psychiatric history: Reports: anxiety, depression RN STAFFING history: Reports: no RN STAFFING history - Social History Smoking Status: Never smoker Smokeless Tobacco Status: No Alcohol use: Reports: none Drug use: Reports: none Physical Exam - General Limitations: other (dementia) General appearance: alert, in no apparent distress Course Vital Signs Temperature 98.5 F 04/25/18 18:03 Pulse Rate 80 04/25/18 18:03 Respiratory Rate 20 04/25/18 18:03 Blood Pressure 74/52 04/25/18 18:03 O2 Sat by Pulse Oximetry 100 04/25/18 18:03 Temperature 98.5 F 04/25/18 18:03 Pulse Rate 76 04/25/18 18:22 Respiratory Rate 18 04/25/18 18:22 Blood Pressure 105/83 04/25/18 18:22 O2 Sat by Pulse Oximetry 100 04/25/18 18:22 Oxygen Delivery Oxygen Delivery Room Air Attestation Statement - Attestation Attestation: I examined this patient and my medical decision-making was reviewed with the Resident Physician. I agree with the documented findings, disposition and treatment plan as described except to the extent set forth below. 82 year old female presents to the ED with complaints of UTI from the senior living that typically requires admission to the hospital because of mutli drug restistance bacteria and multi allergy issues with ABX that could help with therapy. We will start labs and obtain UA and start on vancomycin as this is what the e.coli culture is sensitive to in the past on 04.08.18. WE will sign patient out to the night team David for admission to the medicine.
[2018-04-25 18:49] LABS: Basophils % 0.6 %; Eosinophils # 0.1 K/mcL (0.0-0.6); Eosinophils % 1.3 %; Hematocrit 34.6 % (35.3-44.9); Hemoglobin 10.6 g/dL (11.5-15.4); Immature Granulocytes % 1.4 % (0-4); Lymphocytes # 1.3 K/mcL (0.6-4.6); Lymphocytes % 21.1 %; Mean Corpuscular HGB Conc 30.6 g/dL (31.6-35.5); Mean Corpuscular Hemoglobin 28.1 pg (28.0-33.3); Mean Corpuscular Volume 91.8 fL (83.0-100.0); Mean Platelet Volume 12.8 fL (9.4-12.4); Monocytes # 0.4 K/mcL (0.0-1.3); Monocytes % 6.3 %; Neutrophils # 4.4 K/mcL (1.6-8.9); Platelet Count 103 K/mcL (140-400); Red Blood Count 3.77 M/mcL (3.82-4.97); Red Cell Distribution Width 16.6 % (11.5-14.5); Segmented Neutrophils % 69.3 %
[2018-04-25 18:59] LABS: Bilirubin,Urine Small (Negative); Blood,Urine Moderate (Negative); Clarity,Urine Cloudy (Clear); Color,Urine Yellow (Yellow); Glucose,Urine (UA) Normal (Normal); Ketones,Urine Negative (Negative); Leukocyte Esterase,Urine Large (Negative); Nitrite,Urine Positive (Negative); Protein,Urine 30 mg/dL (Neg-Trace); Specific Gravity,Urine 1.016 (1.010-1.025); Urobilinogen,Urine Normal (Normal)
[2018-04-25 19:01] LABS: Bacteria,Urine Few per hpf (None-Few); Hyaline Casts,Urine None Seen per lpf (None-Few); RBC,Urine 15-30 per hpf (0-3); Squamous Epithelial Cell,Urine Many per lpf (None-Few); WBC,Urine TNTC per hpf (0-3)
[2018-04-25 19:04] LABS: Calcium 6.9 mg/dL (8.6-10.3); Potassium 3.5 mEq/L (3.5-5.1)
[2018-04-25 19:11] LABS: Yeast,Urine Few per hpf (None Seen)
--- NOTE | 2018-04-25 19:31 | Emergency Department Note ---
Disposition Clinical Impression: UTI (urinary tract infection) Qualifiers: Urinary tract infection type: site unspecified Hematuria presence: without hematuria Qualified Code(s): N39.0 - Urinary tract infection, site not specified Disposition: Admitted As Inpatient Condition: Good Referrals: Braden Garibay MD [Primary Care Provider] - Forms: ED Satisfaction Letter Time of Disposition: 19:41 General Adult HPI - General Chief complaint: ED Urogenital-Female Stated complaint: UTI Time Seen by Provider: 04/25/18 17:57 Source: family, EMS Mode of arrival: EMS Limitations: other (dementia) - History of Present Illness Pain Scale: 0 - Related Data Home Medications Medication Instructions Recorded Confirmed Acetaminophen [Tylenol] 650 mg PO Q6HR PRN 09/14/15 04/25/18 Budesonide/Formoterol 160/4.5 2 puff IH BIDR 09/14/15 04/25/18 [Symbicort 160/4.5] Docusate [Colace] 100 mg PO BID 09/14/15 04/25/18 Folic Acid 1 mg PO DAILY 09/14/15 04/25/18 Magnesium Oxide [Magnesium] 400 mg PO DAILY 09/14/15 04/25/18 Memantine HCl [Namenda Xr] 28 mg PO DAILY 09/14/15 04/25/18 Omeprazole [PriLOSEC] 20 mg PO DAILY 09/14/15 04/25/18 Azelastine 0.1% Nasal [place] 2 spr NS BID 05/19/17 04/25/18 [Astelin] Carbidopa/Levodopa ER 50/200 1 tab PO BID 05/19/17 04/25/18 [Sinemet ER 50-200 Tab] Lactobacillus Acidophilus 1 cap PO BID 05/19/17 04/25/18 [Acidophilus] Magnesium Hydroxide [Milk of 30 ml PO DAILY PRN 05/19/17 04/25/18 Magnesia] Na Phos,M-B/Na Phos,Di-Ba [Fleet 1 each RC Q48H PRN 05/19/17 04/25/18 Enema Extra] Albuterol Sulfate [Ventolin Hfa] 2 puff IH Q4-6H PRN 05/24/17 04/25/18 Levothyroxine [Synthroid] 150 mcg PO DAILY 02/28/18 04/25/18 Quetiapine Fumarate [Seroquel] 12.5 mg PO BID 02/28/18 04/25/18 Calcium Carbonate/Vitamin D3 1 tab PO DAILY 03/25/18 04/25/18 [Calcium 600-Vit D3 400 Tablet] Mirtazapine 7.5 mg PO HS 04/25/18 04/25/18 Paroxetine HCl [Paxil] 20 mg PO DAILY 04/25/18 04/25/18 Previous Rx's Medication Instructions Recorded Bisacodyl [Dulcolax] 10 mg RC DAILY PRN #30 supp.rect 04/04/18 Cholecalciferol (D-3) [Vitamin D] 1,000 unit PO DAILY #30 tablet 04/04/18 Megestrol Acetate [Megace] 800 mg PO DAILY #30 bottle 04/04/18 Metoprolol [Lopressor] 25 mg PO BID #30 tablet 04/04/18 LORazepam [Ativan] 0.5 mg PO DAILY PRN 2 Days #2 04/08/18 tablet Tramadol HCl [Ultram] 50 - 100 mg PO TID PRN 2 Days #12 04/08/18 tablet Allergies Allergy/AdvReac Type Severity Reaction Status Date / Time Amoxicillin Allergy unknown Verified 04/25/18 18:28 atropine Allergy unknown Verified 04/25/18 18:28 codeine Allergy See Verified 04/25/18 18:28 Comments Diphenoxylate Allergy unknown Verified 04/25/18 18:28 enalapril Allergy unknown Verified 04/25/18 18:28 esomeprazole Allergy inknown Verified 04/25/18 18:28 gluten Allergy Diarrhea Verified 04/25/18 18:28 Hydromorphone Allergy unknown Verified 04/25/18 18:28 Iodinated Contrast- Oral and Allergy unknown Verified 04/25/18 18:28 IV Dye [Iodinated Contrast Media - IV Dye] nitrofurantoin Allergy unknown Verified 04/25/18 18:28 Penicillins Allergy unkown Verified 04/25/18 18:28 piroxicam Allergy unknown Verified 04/25/18 18:28 Sulfa (Sulfonamide Allergy unknown Verified 04/25/18 18:28 Antibiotics) Past Medical History - Past Medical History Medical history: Reports: atrial fibrillation, dementia, GERD, hypertension, thyroid disease, other Surgical history: Reports: no surgical history, thyroidectomy Psychiatric history: Reports: anxiety, depression CIGARETTE PACKER history: Reports: no CIGARETTE PACKER history - Social History Smoking Status: Never smoker Smokeless Tobacco Status: No Alcohol use: Reports: none Drug use: Reports: none Physical Exam - General Limitations: other (dementia) General appearance: alert, in no apparent distress Course Vital Signs Temperature 98.5 F 04/25/18 18:03 Pulse Rate 80 04/25/18 18:03 Respiratory Rate 20 04/25/18 18:03 Blood Pressure 74/52 04/25/18 18:03 O2 Sat by Pulse Oximetry 100 04/25/18 18:03 Temperature 98.5 F 04/25/18 18:03 Pulse Rate 76 04/25/18 18:22 Respiratory Rate 18 04/25/18 18:22 Blood Pressure 105/83 04/25/18 18:22 O2 Sat by Pulse Oximetry 100 04/25/18 18:22 Oxygen Delivery Oxygen Delivery Room Air Medical Decision Making - MDM Narrative Medical decision making narrative: Patient is received in signout from Dr. Brown and Dr. Saskia fam at 1900 due to shift change. Please see their documentation for history of presenting illness , physical exam and initial medical decision making. Patient has a UTI on laboratory testing. Patient will need to be admitted to the hospital for further evaluation and management due to having recurrent UTIs and having multidrug resistance. Patient also has significant number of medication allergies so was sent here from her prison physician for admission for IV antibiotics. Called and spoke with the admitting hospitalist and he has accepted the patient to their service. Patient will be admitted to the hospital at this time for further evaluation and management and IV antibiotics. - Lab Data Lab results reviewed: Yes I reviewed the patient's lab results. Result diagrams: 04/25/18 18:21 04/25/18 18:21 Lab Results 04/25/18 04/25/18 04/25/18 Range/Units 18:21 18:21 18:44 WBC 6.4 (4.3-11.1) K/mcL RBC 3.77 L (3.82-4.97) M/mcL Hgb 10.6 L (11.5-15.4) g/dL Hct 34.6 L (35.3-44.9) % MCV 91.8 (83.0-100.0) fL MCH 28.1 (28.0-33.3) pg MCHC 30.6 L (31.6-35.5) g/dL RDW 16.6 H (11.5-14.5) % Plt Count 103 L (140-400) K/mcL MPV 12.8 H (9.4-12.4) fL Immature Gran % 1.4 (0-4) % Seg Neutrophils % 69.3 % Lymphocytes % 21.1 % Monocytes % 6.3 % Eosinophils % 1.3 % Basophils % 0.6 % Neutrophils # 4.4 (1.6-8.9) K/mcL Lymphocytes # 1.3 (0.6-4.6) K/mcL Monocytes # 0.4 (0.0-1.3) K/mcL Eosinophils # 0.1 (0.0-0.6) K/mcL Basophils # 0.0 (0.0-0.2) K/mcL Sodium 136 (136-145) mEq/L Potassium 3.5 (3.5-5.1) mEq/L Chloride 109 H (98-107) mEq/L Carbon Dioxide 18 L (23-29) mEq/L BUN 26 H (8-23) mg/dL Creatinine 1.08 (0.60-1.20) mg/dL Est GFR ( Amer) 59 L (> 60) Est GFR (Non-Af Amer) 48 L (> 60) BUN/Creatinine Ratio 24 (6-26) Glucose 101 (70-105) mg/dL Calculated Osmolality 287 (280-300) Calcium 6.9 L (8.6-10.3) mg/dL Urine Color Yellow (Yellow) Urine Clarity Cloudy A (Clear) Urine pH 6.0 (5.0-8.0) pH Units Ur Specific [place] 1.016 (1.010-1.025) Urine Protein 30 H (Neg-Trace) mg/dL Urine Glucose (UA) Normal (Normal) mg/dL Urine Ketones Negative (Negative) mg/dL Urine Blood Moderate H (Negative) Urine Nitrite Positive A (Negative) Urine Bilirubin Small H (Negative) Urine Urobilinogen Normal (Normal) mg/dL Ur Leukocyte Esterase Large H (Negative) Urine Microscopic RBC 15-30 H (0-3) per hpf Urine Microscopic WBC TNTC H (0-3) per hpf Ur Squamous Epith Cells Many H (None-Few) per lpf Urine Bacteria Few (None-Few) per hpf Hyaline Casts None Seen (None-Few) per lpf Urine Yeast Few H (None Seen) per hpf Ur Culture Indicated? NO. A (NO)
[2018-04-25] MEDS ORDERED: 0.9 % Sodium Chloride 1,000 ML IVC ONE (19:38)
--- NOTE | 2018-04-25 20:13 | Emergency Department Note ---
Disposition Clinical Impression: UTI (urinary tract infection) Qualifiers: Urinary tract infection type: site unspecified Hematuria presence: without hematuria Qualified Code(s): N39.0 - Urinary tract infection, site not specified Disposition: Admitted As Inpatient Condition: Good General Adult HPI - General Chief complaint: ED Urogenital-Female Stated complaint: UTI Time Seen by Provider: 04/25/18 17:57 Source: family, EMS Mode of arrival: EMS Limitations: other (dementia) Nursing Notes Reviewed: Yes Vital Signs Reviewed: Yes - History of Present Illness Pain Scale: 0 - Related Data Home Medications Medication Instructions Recorded Confirmed Acetaminophen [Tylenol] 650 mg PO Q6HR PRN 09/14/15 04/25/18 Budesonide/Formoterol 160/4.5 2 puff IH BIDR 09/14/15 04/25/18 [Symbicort 160/4.5] Docusate [Colace] 100 mg PO BID 09/14/15 04/25/18 Folic Acid 1 mg PO DAILY 09/14/15 04/25/18 Magnesium Oxide [Magnesium] 400 mg PO DAILY 09/14/15 04/25/18 Memantine HCl [Namenda Xr] 28 mg PO DAILY 09/14/15 04/25/18 Omeprazole [PriLOSEC] 20 mg PO DAILY 09/14/15 04/25/18 Azelastine 0.1% Nasal [place] 2 spr NS BID 05/19/17 04/25/18 [Astelin] Carbidopa/Levodopa ER 50/200 1 tab PO BID 05/19/17 04/25/18 [Sinemet ER 50-200 Tab] Lactobacillus Acidophilus 1 cap PO BID 05/19/17 04/25/18 [Acidophilus] Magnesium Hydroxide [Milk of 30 ml PO DAILY PRN 05/19/17 04/25/18 Magnesia] Na Phos,M-B/Na Phos,Di-Ba [Fleet 1 each RC Q48H PRN 05/19/17 04/25/18 Enema Extra] Albuterol Sulfate [Ventolin Hfa] 2 puff IH Q4-6H PRN 05/24/17 04/25/18 Levothyroxine [Synthroid] 150 mcg PO DAILY 02/28/18 04/25/18 Quetiapine Fumarate [Seroquel] 25 mg PO HS 02/28/18 04/25/18 Calcium Carbonate/Vitamin D3 1 tab PO DAILY 03/25/18 04/25/18 [Calcium 600-Vit D3 400 Tablet] Mirtazapine 7.5 mg PO HS 04/25/18 04/25/18 Paroxetine HCl [Paxil] 20 mg PO DAILY 04/25/18 04/25/18 Previous Rx's Medication Instructions Recorded Bisacodyl [Dulcolax] 10 mg RC DAILY PRN #30 supp.rect 04/04/18 Cholecalciferol (D-3) [Vitamin D] 1,000 unit PO DAILY #30 tablet 04/04/18 Megestrol Acetate [Megace] 800 mg PO DAILY #30 bottle 04/04/18 Metoprolol [Lopressor] 25 mg PO BID #30 tablet 04/04/18 LORazepam [Ativan] 0.5 mg PO DAILY PRN 2 Days #2 04/08/18 tablet Tramadol HCl [Ultram] 50 - 100 mg PO TID PRN 2 Days #12 04/08/18 tablet Allergies Allergy/AdvReac Type Severity Reaction Status Date / Time Amoxicillin Allergy unknown Verified 04/25/18 18:28 atropine Allergy unknown Verified 04/25/18 18:28 codeine Allergy See Verified 04/25/18 18:28 Comments Diphenoxylate Allergy unknown Verified 04/25/18 18:28 enalapril Allergy unknown Verified 04/25/18 18:28 esomeprazole Allergy inknown Verified 04/25/18 18:28 gluten Allergy Diarrhea Verified 04/25/18 18:28 Hydromorphone Allergy unknown Verified 04/25/18 18:28 Iodinated Contrast- Oral and Allergy unknown Verified 04/25/18 18:28 IV Dye [Iodinated Contrast Media - IV Dye] nitrofurantoin Allergy unknown Verified 04/25/18 18:28 Penicillins Allergy unkown Verified 04/25/18 18:28 piroxicam Allergy unknown Verified 04/25/18 18:28 Sulfa (Sulfonamide Allergy unknown Verified 04/25/18 18:28 Antibiotics) Past Medical History - Past Medical History Medical history: Reports: atrial fibrillation, dementia, GERD, hypertension, thyroid disease, other Surgical history: Reports: no surgical history, thyroidectomy Psychiatric history: Reports: anxiety, depression HYDRAULIC RIVETER history: Reports: no HYDRAULIC RIVETER history - Social History Smoking Status: Never smoker Smokeless Tobacco Status: No Alcohol use: Reports: none Drug use: Reports: none Physical Exam - General Limitations: other (dementia) General appearance: alert, in no apparent distress Course Vital Signs Temperature 98.5 F 04/25/18 18:03 Pulse Rate 80 04/25/18 18:03 Respiratory Rate 20 04/25/18 18:03 Blood Pressure 74/52 04/25/18 18:03 O2 Sat by Pulse Oximetry 100 04/25/18 18:03 Temperature 98.5 F 04/25/18 18:03 Pulse Rate 78 04/25/18 20:00 Respiratory Rate 20 04/25/18 20:00 Blood Pressure 118/77 04/25/18 20:00 O2 Sat by Pulse Oximetry 99 04/25/18 20:00 Oxygen Delivery Oxygen Delivery Room Air Medical Decision Making - Medical Records Medical records reviewed: Yes I reviewed the patient's medical records. - Lab Data Lab results reviewed: Yes I reviewed the patient's lab results. Result diagrams: 04/25/18 18:21 04/25/18 18:21 Lab Results 04/25/18 04/25/18 04/25/18 Range/Units 18:21 18:21 18:44 WBC 6.4 (4.3-11.1) K/mcL RBC 3.77 L (3.82-4.97) M/mcL Hgb 10.6 L (11.5-15.4) g/dL Hct 34.6 L (35.3-44.9) % MCV 91.8 (83.0-100.0) fL MCH 28.1 (28.0-33.3) pg MCHC 30.6 L (31.6-35.5) g/dL RDW 16.6 H (11.5-14.5) % Plt Count 103 L (140-400) K/mcL MPV 12.8 H (9.4-12.4) fL Immature Gran % 1.4 (0-4) % Seg Neutrophils % 69.3 % Lymphocytes % 21.1 % Monocytes % 6.3 % Eosinophils % 1.3 % Basophils % 0.6 % Neutrophils # 4.4 (1.6-8.9) K/mcL Lymphocytes # 1.3 (0.6-4.6) K/mcL Monocytes # 0.4 (0.0-1.3) K/mcL Eosinophils # 0.1 (0.0-0.6) K/mcL Basophils # 0.0 (0.0-0.2) K/mcL Sodium 136 (136-145) mEq/L Potassium 3.5 (3.5-5.1) mEq/L Chloride 109 H (98-107) mEq/L Carbon Dioxide 18 L (23-29) mEq/L BUN 26 H (8-23) mg/dL Creatinine 1.08 (0.60-1.20) mg/dL Est GFR ( Amer) 59 L (> 60) Est GFR (Non-Af Amer) 48 L (> 60) BUN/Creatinine Ratio 24 (6-26) Glucose 101 (70-105) mg/dL Calculated Osmolality 287 (280-300) Calcium 6.9 L (8.6-10.3) mg/dL Urine Color Yellow (Yellow) Urine Clarity Cloudy A (Clear) Urine pH 6.0 (5.0-8.0) pH Units Ur Specific [place] 1.016 (1.010-1.025) Urine Protein 30 H (Neg-Trace) mg/dL Urine Glucose (UA) Normal (Normal) mg/dL Urine Ketones Negative (Negative) mg/dL Urine Blood Moderate H (Negative) Urine Nitrite Positive A (Negative) Urine Bilirubin Small H (Negative) Urine Urobilinogen Normal (Normal) mg/dL Ur Leukocyte Esterase Large H (Negative) Urine Microscopic RBC 15-30 H (0-3) per hpf Urine Microscopic WBC TNTC H (0-3) per hpf Ur Squamous Epith Cells Many H (None-Few) per lpf Urine Bacteria Few (None-Few) per hpf Hyaline Casts None Seen (None-Few) per lpf Urine Yeast Few H (None Seen) per hpf Ur Culture Indicated? NO. A (NO) Attestation Statement - Attestation Attestation: I, Castillo Navarrete MD, personally evaluated this patient and discussed their management with the resident physician. I reviewed the resident's note and agree with the documented findings, medical decision making, and plan of care. This patient was signed out at shift change from Dr. Brown and Dr. Aura Cedillo. Please refer to their notes for complete details of the history and physical examination. Patient was referred to the emergency department by her primary care provider from the residential to be admitted for IV antibiotics for a urinary tract infection. No specific complaints elicited from patient and her family. On examination patient is a well-developed thin elderly female in no acute distress. She is alert. No cyanosis or diaphoresis. Breath sounds are clear and equal bilaterally. Heart regular rate and rhythm. Abdomen soft with normal bowel sounds. His tenderness on palpation. The hospitalist, Dr. Lubin, was consulted and accepted admission of the patient.
[2018-04-25] MEDS ORDERED: Naloxone 0.4 MG/ML INJ IVP PRN (21:11)
[2018-04-25] MEDS ORDERED: Bisacodyl 10 MG RECTAL SUPPOSITORY RC PRN (21:18)
[2018-04-25] MEDS ORDERED: Acetaminophen 325 MG TABLET PO PRN (21:18)
--- NOTE | 2018-04-25 21:25 | Internal Med History&Physical ---
Date of Encounter: 04/25/18 Time of Encounter: 21:22 Internal Medicine - H&P: HPI Chief complaint: UTI Admitted From: Long-term Nursing Facility Plans for Post Hospital Care: Transfer [facility] Care History of present illness: Ms. Griffin is a 82 year old female with history of significant dementia was sent to [facility] after concern of having UTI , after having done a urinalysis. Patient has a history of multidrug resistant UTI and has required IV antibiotics in the past. When I examined the patient and she is calm, comfortable. She is alert to self but not to place, time, situation. Patient denies fevers, chills, dysuria, urinary frequency. She is afebrile, not tachycardic, does not have a white count. She has had multiple admissions in the past year for UTIs. Patient was given IV vancomycin in the ER. Was no family member at bedside. Unclear what patient 's is less than mental status is but she is awake, alert and answers some questions. Past Med Surg Social Fam HX - Past Medical History Medical history: atrial fibrillation, dementia, GERD, hypertension, thyroid disease, other Additional medical history: Parkinson's, UTI, FTT Psychiatric history: anxiety, depression - Past Surgical History Surgical History: no surgical history, thyroidectomy Additional surgical history: thyroidectomy - Social History Smoking Status: Never smoker Smokeless Tobacco Status: No Alcohol use: none Drug use: none - Family History Father Living Status: Hx Family Cardiac Disorders: Yes Mother Living Status: Hx Family Cardiac Disorders: Yes Internal Medicine - H&P: Meds Acetaminophen [Tylenol] 650 mg PO Q6HR PRN 09/14/15 [History] Budesonide/Formoterol 160/4.5 [Symbicort 160/4.5] 2 puff IH BIDR 09/14/15 [ History] Docusate [Colace] 100 mg PO BID 09/14/15 [History] Folic Acid 1 mg PO DAILY 09/14/15 [History] Magnesium Oxide [Magnesium] 400 mg PO DAILY 09/14/15 [History] Memantine HCl [Namenda Xr] 28 mg PO DAILY 09/14/15 [History] Omeprazole [PriLOSEC] 20 mg PO DAILY 09/14/15 [History] Azelastine 0.1% Nasal [place] [Astelin] 2 spr NS BID 05/19/17 [History] Carbidopa/Levodopa ER 50/200 [Sinemet ER 50-200 Tab] 1 tab PO BID 05/19/17 [ History] Lactobacillus Acidophilus [Acidophilus] 1 cap PO BID 05/19/17 [History] Magnesium Hydroxide [Milk of Magnesia] 30 ml PO DAILY PRN 05/19/17 [History] Na Phos,M-B/Na Phos,Di-Ba [Fleet Enema Extra] 1 each RC Q48H PRN 05/19/17 [ History] Albuterol Sulfate [Ventolin Hfa] 2 puff IH Q4-6H PRN 05/24/17 [History] Levothyroxine [Synthroid] 150 mcg PO DAILY 02/28/18 [History] Quetiapine Fumarate [Seroquel] 25 mg PO HS 02/28/18 [History] Calcium Carbonate/Vitamin D3 [Calcium 600-Vit D3 400 Tablet] 1 tab PO DAILY [History] Bisacodyl [Dulcolax] 10 mg RC DAILY PRN #30 supp.rect 04/04/18 [Rx] Cholecalciferol (D-3) [Vitamin D] 1,000 unit PO DAILY #30 tablet 04/04/18 [Rx] Megestrol Acetate [Megace] 800 mg PO DAILY #30 bottle 04/04/18 [Rx] Metoprolol [Lopressor] 25 mg PO BID #30 tablet 04/04/18 [Rx] LORazepam [Ativan] 0.5 mg PO DAILY PRN 2 Days #2 tablet 04/08/18 [Rx] Tramadol HCl [Ultram] 50 - 100 mg PO TID PRN 2 Days #12 tablet 04/08/18 [Rx] Mirtazapine 7.5 mg PO HS 04/25/18 [History] Paroxetine HCl [Paxil] 20 mg PO DAILY 04/25/18 [History] 3 Allergy/AdvReac Type Severity Reaction Status Date / Time Amoxicillin Allergy unknown Verified 04/25/18 18:28 atropine Allergy unknown Verified 04/25/18 18:28 codeine Allergy See Verified 04/25/18 18:28 Comments Diphenoxylate Allergy unknown Verified 04/25/18 18:28 enalapril Allergy unknown Verified 04/25/18 18:28 esomeprazole Allergy inknown Verified 04/25/18 18:28 gluten Allergy Diarrhea Verified 04/25/18 18:28 Hydromorphone Allergy unknown Verified 04/25/18 18:28 Iodinated Contrast- Oral and Allergy unknown Verified 04/25/18 18:28 IV Dye [Iodinated Contrast Media - IV Dye] nitrofurantoin Allergy unknown Verified 04/25/18 18:28 Penicillins Allergy unkown Verified 04/25/18 18:28 piroxicam Allergy unknown Verified 04/25/18 18:28 Sulfa (Sulfonamide Allergy unknown Verified 04/25/18 18:28 Antibiotics) All Systems PM: A 10-system review of systems was performed and is negative for pertinent findings except as documented above in the HPI. Review of systems: Review of systems as per history of present illness. Otherwise patient did not answer any other questions. - Constitutional Vitals: Temp Pulse Resp BP Pulse Ox 98.5 F 78 20 118/77 99 04/25/18 18:03 04/25/18 20:00 04/25/18 20:00 04/25/18 20:00 04/25/18 20:00 Exam: General: pleasant, without distress HEENT: Head atraumatic, normocephalic, EOMI, PERRL, absent ear discharge or trauma, Moist Mucous Membranes, uvula midline Neck: nontender to palpation, absent lymphadenopathy, Cardiovascualr: Regular rate and rhythm with no murmur, absent gallops or rubs, absent pedal edema, radial pulses 2 out of 4 Lungs: Clear to auscultation bilaterally, not in respiratory distress Abdomen: Soft nontender, nondistended positive bowel sounds, absent hepatomegaly Skin: warm and dry, absent rash, absent open wounds and nodules MSK: absent clubbing, cyanosis, joints without swelling Neuro: Alert to self only not to time, situation, place. Patient did not participate in other aspects of neuro exam. Psych: Calm, not agitated. Internal Med - H&P Results - Labs CBC & Chem 7: 04/25/18 18:21 04/25/18 18:21 - Assessment and plan (1) UTI (urinary tract infection) Current Visit: Yes Status: Suspected Assessment and plan: Patient was sent here from half-way for concern for UTI Urinalysis shows many squamous cells but shows nitrites and esterase patient does not complain of dysuria, frequency and hesitancy she is at baseline mental status (calm, answering some questions) afebrile, HR<100, wbc wnl, not tachypneic has multiple admissions for UTI in the past was given vancomycin by the ER plan: currently will monitor for signs and symptoms of infection. Patient likely has colonization. This is asymptomatic bacteruria. repeat urinalysis. Qualifiers: Urinary tract infection type: site unspecified Hematuria presence: without hematuria Qualified Code(s): N39.0 - Urinary tract infection, site not specified (2) Dementia Current Visit: Yes Status: Acute Assessment and plan: Alert to self only Continue carbidopa, levodopa, memantine Qualifiers: Dementia type: Parkinson's disease Dementia behavioral disturbance: without behavioral disturbance Qualified Code(s): G20 - Parkinson's disease; F02.80 - Dementia in other diseases classified elsewhere without behavioral disturbance (3) Protein calorie malnutrition Current Visit: Yes Status: Acute Assessment and plan: History of protein calorie malnutrition Regular diet Continue Megace Qualifiers: Protein-calorie malnutrition severity: unspecified severity Qualified Code( s): E46 - Unspecified protein-calorie malnutrition (4) Atrial fibrillation Current Visit: Yes Status: Chronic Assessment and plan: History of atrial fibrillation Patient appears to be in sinus rhythm Continue metoprolol not on anticoagulation Qualifiers: Atrial fibrillation type: chronic Qualified Code(s): I48.2 - Chronic atrial fibrillation (5) COPD (chronic obstructive pulmonary disease) Current Visit: Yes Status: Chronic Assessment and plan: Not an exacerbation Continue Symbicort Qualifiers: COPD type: unspecified COPD Qualified Code(s): J44.9 - Chronic obstructive pulmonary disease, unspecified (6) Hypothyroidism Current Visit: Yes Status: Chronic Assessment and plan: continue levothyroxine Qualifiers: Hypothyroidism type: unspecified Qualified Code(s): E03.9 - Hypothyroidism , unspecified - Time Spent With Patient Total time spent is greater than 50% in coordination of care (as documented) at patient's floor/unit and/or counseling patient:
[2018-04-25] MEDS: Budesonide/Formoterol 160/4.5 1 PUFF INH IH SCH (23:28)
[2018-04-26] MEDS: Budesonide/Formoterol 160/4.5 1 PUFF INH IH SCH ×2 (07:29→19:47)
[2018-04-26] MEDS: Carbidopa/Levodopa ER 50/200 TABLET PO SCH ×2 (08:33→20:55)
[2018-04-26] MEDS: Megestrol Acetate 400 MG/10 ML UDC PO SCH (08:33)
[2018-04-26] MEDS: *HR* Heparin 5,000 UNIT/ML VIAL SQ SCH ×3 (08:34→20:55)
[2018-04-26] MEDS: Azelastine 0.1% Nasal Spray 30 ML BOTTLE NS SCH ×2 (08:34→21:05)
--- NOTE | 2018-04-26 08:57 | Internal Med Progress Note ---
Hospitalist Progress Note - Encounter Date of Encounter: 04/26/18 Time of Encounter: 08:52 - Subjective Interval History: 82 F with multiple admissions for recurrent UTIs She has a PMH for Dementia, hypothyroidism, GERD At time of eval, she only grunts in response and is not conversing,even though she opens her eyes to name call I am unsure what her baseline is, but chart review, during last admission, she was able to communicate Her labs are currently acceptable and vitals are stable - Exam Vitals: Temp Pulse Resp BP Pulse Ox 98.1 F 64 16 123/76 93 04/26/18 08:18 04/26/18 08:18 04/26/18 08:18 04/26/18 08:18 04/26/18 08:18 Exam: General: pleasant, without distress HEENT: Head atraumatic, normocephalic, EOMI Neck: nontender to palpation, absent lymphadenopathy, Cardiovascualr: Regular rate and rhythm with no murmur, absent gallops or rubs, absent pedal edema, radial pulses 2 out of 4 Lungs: Clear to auscultation bilaterally, not in respiratory distress Abdomen: Soft nontender, nondistended positive bowel sounds, absent hepatomegaly Skin: warm and dry, absent rash, absent open wounds and nodules MSK: absent clubbing, cyanosis, joints without swelling Neuro: Alert to self only not to time, situation, place. Patient did not participate in other aspects of neuro exam. Psych: Calm, not agitated. - Assessment and Plan (1) Hypothyroidism Current Visit: Yes Status: Chronic Assessment and Plan: continue levothyroxine /TSH done in 03/2018 was WNL (2) Dementia Current Visit: Yes Status: Chronic Assessment and Plan: Alert to self only Continue carbidopa, levodopa, memantine (3) Atrial fibrillation Current Visit: Yes Status: Chronic Assessment and Plan: History of atrial fibrillation Patient appears to be in sinus rhythm Continue metoprolol not on anticoagulation (4) COPD (chronic obstructive pulmonary disease) Current Visit: Yes Status: Chronic Assessment and Plan: Not an exacerbation Continue Symbicort (5) Protein calorie malnutrition Current Visit: Yes Status: Acute Assessment and Plan: History of protein calorie malnutrition Regular diet Continue Megace (6) UTI (urinary tract infection) Current Visit: Yes Status: Suspected Assessment and Plan: Patient was sent here from custodial for concern for UTI UA shows large LE and Nitrites Urine culture has been sent Patient is not septic and is mostly asymptomatic, however, we do not known her baseline mental status and if her current mental status is related to her UTI She received Vanco in ER Await urine cultures - Time Spent with Patient Total time spent is greater than 50% in coordination of care (as documented) at patient's floor/unit and/or counseling patient: Plan of Care Discussed with: nurse Internal Medicine: Result - Labs CBC & Chem 7: 04/25/18 18:21 04/25/18 18:21 Consult Discharge Plan - Plan Referrals: Braden Garibay MD [Primary Care Provider] - (1) Hypothyroidism Qualifiers: Hypothyroidism type: unspecified Qualified Code(s): E03.9 - Hypothyroidism, unspecified (2) Dementia Qualifiers: Dementia type: Parkinson's disease Dementia behavioral disturbance: without behavioral disturbance Qualified Code(s): G20 - Parkinson's disease; F02.80 - Dementia in other diseases classified elsewhere without behavioral disturbance (3) Atrial fibrillation Qualifiers: Atrial fibrillation type: chronic Qualified Code(s): I48.2 - Chronic atrial fibrillation (4) COPD (chronic obstructive pulmonary disease) Qualifiers: COPD type: unspecified COPD Qualified Code(s): J44.9 - Chronic obstructive pulmonary disease, unspecified (5) Protein calorie malnutrition Qualifiers: Protein-calorie malnutrition severity: unspecified severity Qualified Code(s) : E46 - Unspecified protein-calorie malnutrition (6) UTI (urinary tract infection) Qualifiers: Urinary tract infection type: site unspecified Hematuria presence: without hematuria Qualified Code(s): N39.0 - Urinary tract infection, site not specified
[2018-04-26] MEDS ORDERED: Mirtazapine 15 MG TABLET PO SCH (21:00)
[2018-04-27 05:25] LABS: Immature Granulocytes % 2.5 % (0-4); Mean Corpuscular HGB Conc 30.9 g/dL (31.6-35.5); Red Cell Distribution Width 16.9 % (11.5-14.5)
[2018-04-27 05:27] LABS: Basophils % 0.9 %; Eosinophils # 0.1 K/mcL (0.0-0.6); Eosinophils % 2.3 %; Hematocrit 35.9 % (35.3-44.9); Hemoglobin 11.1 g/dL (11.5-15.4); Immature Platelets 12.6 % (1.1-6.1); Lymphocytes % 22.7 %; Mean Corpuscular Hemoglobin 29.1 pg (28.0-33.3); Mean Platelet Volume 12.7 fL (9.4-12.4); Monocytes # 0.3 K/mcL (0.0-1.3); Monocytes % 6.4 %; Red Blood Count 3.82 M/mcL (3.82-4.97); Segmented Neutrophils % 65.2 %
[2018-04-27 05:46] LABS: Neutrophils # 2.9 K/mcL (1.6-8.9); Platelet Count 86 K/mcL (140-400)
[2018-04-27 05:51] LABS: BUN/Creatinine Ratio 21 (6-26); Blood Urea Nitrogen 19 mg/dL (8-23); Calcium 6.5 mg/dL (8.6-10.3); Carbon Dioxide 19 mEq/L (23-29); Chloride 113 mEq/L (98-107); Glucose 75 mg/dL (70-105); Osmolality,Calculated 295 (280-300); Potassium 3.5 mEq/L (3.5-5.1); Sodium 142 mEq/L (136-145); eGFR For Non-African Americans 59 (> 60)
[2018-04-27] MEDS: *HR* Heparin 5,000 UNIT/ML VIAL SQ SCH ×2 (05:57→13:50)
[2018-04-27] MEDS: Budesonide/Formoterol 160/4.5 1 PUFF INH IH SCH (08:15)
[2018-04-27] MEDS: Carbidopa/Levodopa ER 50/200 TABLET PO SCH (08:18)
[2018-04-27] MEDS: Megestrol Acetate 400 MG/10 ML UDC PO SCH (08:19)
[2018-04-27] MEDS: Azelastine 0.1% Nasal Spray 30 ML BOTTLE NS SCH (08:20)
[2018-04-27 12:29] VITALS: BP 125/77
--- NOTE | 2018-04-27 15:22 | Discharge Summary ---
Date of Encounter: 04/27/18 Time of Encounter: 15:00 - Discharge Diagnosis (1) Hypocalcemia Priority: Primary Status: Acute (2) Dehydration, mild Priority: Primary Status: Acute (3) Atrial fibrillation Priority: Secondary Status: Chronic Qualifiers: Atrial fibrillation type: chronic Qualified Code(s): I48.2 - Chronic atrial fibrillation (4) COPD (chronic obstructive pulmonary disease) Priority: Secondary Status: Chronic Qualifiers: COPD type: unspecified COPD Qualified Code(s): J44.9 - Chronic obstructive pulmonary disease, unspecified (5) GERD (gastroesophageal reflux disease) Priority: Secondary Status: Chronic Qualifiers: Esophagitis presence: esophagitis presence not specified Qualified Code(s) : K21.9 - Gastro-esophageal reflux disease without esophagitis (6) Hypothyroidism Priority: Secondary Status: Chronic Qualifiers: Hypothyroidism type: unspecified Qualified Code(s): E03.9 - Hypothyroidism , unspecified (7) Parkinson disease Priority: Secondary Status: Chronic (8) Chronic pain Priority: Secondary Status: Chronic Qualifiers: Chronic pain type: other chronic pain Qualified Code(s): G89.29 - Other chronic pain (9) Protein calorie malnutrition Priority: Secondary Status: Chronic Qualifiers: Protein-calorie malnutrition severity: unspecified severity Qualified Code( s): E46 - Unspecified protein-calorie malnutrition (10) Dementia Priority: Secondary Status: Chronic Qualifiers: Dementia type: Parkinson's disease Dementia behavioral disturbance: without behavioral disturbance Qualified Code(s): G20 - Parkinson's disease; F02.80 - Dementia in other diseases classified elsewhere without behavioral disturbance Hospital course: This is an 82-year-old woman, a care home resident. She was sent to our emergency room, after they found her to have "a dirty urine". They suspected her to have an another bout of urinary tract infection. She had multiple of those in the past; some of them with multidrug resistant bacteria. One can see that this patient had a normal WBC count at admission. We did not see her having fever or chills during this hospitalization. Her mental status was baseline at admission and at discharge. Her chemistry panel revealed a creatinine of 1.08 (with a BUN of 26). It showed calcium of 6.9. I talked to the patient's family about her low calcium. Evidently, this patient had her surgery on the thyroid gland in the past. The patient was taking only but a small amount of calcium carbonate/vitamin D in the care home. CONDITION AT DISCHARGE: The patient feels good. She is not voicing any particular problems. She is very demented. She is basically bedbound. Skin: Free of rash and discoloration. Respiratory: Normal breath sounds with no crackles and wheezes bilaterally. CV: Heart is regular with no gallop or murmur. GI: Abdomen is flat and soft with no palpable mass or visceromegaly. Neuro exam: There is no focal deficits. Normal speech, swallowing and gait. SEE DISCHARGE ORDERS/MEDICATIONS.. The patient will be taking calcium carbonate/vitamin D tablets 4 times a day. Will check her BMP/magnesium in about 5 days. Discharge discussed with: family - Time Spent with Patient Total time spent providing and/or coordinating discharge services: Greater than 30 minutes (45 minutes) - Discharge Medications Home Medications: Acetaminophen [Tylenol] 650 mg PO Q6HR PRN 09/14/15 [History] Budesonide/Formoterol 160/4.5 [Symbicort 160/4.5] 2 puff IH BIDR 09/14/15 [ History] Docusate [Colace] 100 mg PO BID 09/14/15 [History] Folic Acid 1 mg PO DAILY 09/14/15 [History] Magnesium Oxide [Magnesium] 400 mg PO DAILY 09/14/15 [History] Memantine HCl [Namenda Xr] 28 mg PO DAILY 09/14/15 [History] Omeprazole [PriLOSEC] 20 mg PO DAILY 09/14/15 [History] Azelastine 0.1% Nasal [place] [Astelin] 2 spr NS BID 05/19/17 [History] Carbidopa/Levodopa ER 50/200 [Sinemet ER 50-200 Tab] 1 tab PO BID 05/19/17 [ History] Lactobacillus Acidophilus [Acidophilus] 1 cap PO BID 05/19/17 [History] Magnesium Hydroxide [Milk of Magnesia] 30 ml PO DAILY PRN 05/19/17 [History] Na Phos,M-B/Na Phos,Di-Ba [Fleet Enema Extra] 1 each RC Q48H PRN 05/19/17 [ History] Levothyroxine [Synthroid] 150 mcg PO DAILY 02/28/18 [History] Quetiapine Fumarate [Seroquel] 25 mg PO HS 02/28/18 [History] Bisacodyl [Dulcolax] 10 mg RC DAILY PRN #30 supp.rect 04/04/18 [Rx] Megestrol Acetate [Megace] 800 mg PO DAILY #30 bottle 04/04/18 [Rx] Metoprolol [Lopressor] 25 mg PO BID #30 tablet 04/04/18 [Rx] Mirtazapine 7.5 mg PO HS 04/25/18 [History] Paroxetine HCl [Paxil] 20 mg PO DAILY 04/25/18 [History] Albuterol Sulfate [Ventolin Hfa] 2 puff IH Q4HR PRN #0 04/27/18 [Rx] Calcium Carbonate/Vitamin D3 [Calcium 600-Vit D3 400 Tablet] 1 tab PO QID #0 [Rx] Allergies/Adverse Reactions: 3 Allergy/AdvReac Type Severity Reaction Status Date / Time Amoxicillin Allergy unknown Verified 04/25/18 18:28 atropine Allergy unknown Verified 04/25/18 18:28 codeine Allergy See Verified 04/25/18 18:28 Comments Diphenoxylate Allergy unknown Verified 04/25/18 18:28 enalapril Allergy unknown Verified 04/25/18 18:28 esomeprazole Allergy inknown Verified 04/25/18 18:28 gluten Allergy Diarrhea Verified 04/25/18 18:28 Hydromorphone Allergy unknown Verified 04/25/18 18:28 Iodinated Contrast- Oral and Allergy unknown Verified 04/25/18 18:28 IV Dye [Iodinated Contrast Media - IV Dye] nitrofurantoin Allergy unknown Verified 04/25/18 18:28 Penicillins Allergy unkown Verified 04/25/18 18:28 piroxicam Allergy unknown Verified 04/25/18 18:28 Sulfa (Sulfonamide Allergy unknown Verified 04/25/18 18:28 Antibiotics) Date of admission: 04/25/18 19:45 Primary care physician: Braden Garibay MD Consults: 04/25/18 21:21 Consult to Underground Truck Operator [CONS] Routine Reason for SW Consult: will need palced back to care home Discharging clinician: Glen Morataya Anticipated date of discharge: 04/27/18 - Constitutional Vitals: Temp Pulse Resp BP Pulse Ox 98.6 F 75 16 125/77 99 04/27/18 12:28 04/27/18 12:28 04/27/18 12:28 04/27/18 12:28 04/27/18 12:28 General appearance: Present: no acute distress Exam: xx - Patient Status Disposition: Transfer SNF Condition: Fair Functional capacity at discharge: bed bound Overall status at discharge: patient is back to baseline - Discharge Instructions Follow Up With: Braden Garibay MD [Primary Care Provider] - (Your appointment has been requested. Our offices will call you with an appointment ) Additional Instructions: BMP, Mg and TSH -- in about 5 days.. - Diet and Activity Activity: as per physical therapy Diet: advance to your usual diet - VTE Deep Vein Thrombosis/Pulmonary Embolism Present on Admission: No
--- NOTE | 2018-04-27 15:53 | Physician Discharge Referral ---
ExtendedCare Referral Info Transfer To: ECF Provider in Charge: Agustin Morataya Provider in Charge after Transfer: Other (a SNF physician..) Institutional Level of Care: Skilled - Diagnosis (1) Hypocalcemia Priority: Primary Status: Acute (2) Dehydration, mild Priority: Primary Status: Acute (3) Atrial fibrillation Priority: Secondary Status: Chronic (4) COPD (chronic obstructive pulmonary disease) Priority: Secondary Status: Chronic (5) GERD (gastroesophageal reflux disease) Priority: Secondary Status: Chronic (6) Hypothyroidism Priority: Secondary Status: Chronic (7) Parkinson disease Priority: Secondary Status: Chronic (8) Chronic pain Priority: Secondary Status: Chronic (9) Protein calorie malnutrition Priority: Secondary Status: Chronic (10) Dementia Priority: Secondary Status: Chronic Prognosis: Fair Aware of Diagnosis: Family Aware of Prognosis: Family - Transfer Medications Home Medications: Acetaminophen [Tylenol] 650 mg PO Q6HR PRN 09/14/15 [History] Budesonide/Formoterol 160/4.5 [Symbicort 160/4.5] 2 puff IH BIDR 09/14/15 [ History] Docusate [Colace] 100 mg PO BID 09/14/15 [History] Folic Acid 1 mg PO DAILY 09/14/15 [History] Magnesium Oxide [Magnesium] 400 mg PO DAILY 09/14/15 [History] Memantine HCl [Namenda Xr] 28 mg PO DAILY 09/14/15 [History] Omeprazole [PriLOSEC] 20 mg PO DAILY 09/14/15 [History] Azelastine 0.1% Nasal [place] [Astelin] 2 spr NS BID 05/19/17 [History] Carbidopa/Levodopa ER 50/200 [Sinemet ER 50-200 Tab] 1 tab PO BID 05/19/17 [ History] Lactobacillus Acidophilus [Acidophilus] 1 cap PO BID 05/19/17 [History] Magnesium Hydroxide [Milk of Magnesia] 30 ml PO DAILY PRN 05/19/17 [History] Na Phos,M-B/Na Phos,Di-Ba [Fleet Enema Extra] 1 each RC Q48H PRN 05/19/17 [ History] Levothyroxine [Synthroid] 150 mcg PO DAILY 02/28/18 [History] Quetiapine Fumarate [Seroquel] 25 mg PO HS 07/19/18 [History] Bisacodyl [Dulcolax] 10 mg RC DAILY PRN #30 supp.rect 04/04/18 [Rx] Megestrol Acetate [Megace] 800 mg PO DAILY #30 bottle 04/04/18 [Rx] Metoprolol [Lopressor] 25 mg PO BID #30 tablet 04/04/18 [Rx] Mirtazapine 7.5 mg PO HS 04/25/18 [History] Paroxetine HCl [Paxil] 20 mg PO DAILY 04/25/18 [History] Albuterol Sulfate [Ventolin Hfa] 2 puff IH Q4HR PRN #0 04/27/18 [Rx] Calcium Carbonate/Vitamin D3 [Calcium 600-Vit D3 400 Tablet] 1 tab PO QID #0 [Rx] Allergies/Adverse Reactions: 3 Allergy/AdvReac Type Severity Reaction Status Date / Time Amoxicillin Allergy unknown Verified 04/25/18 18:28 atropine Allergy unknown Verified 04/25/18 18:28 codeine Allergy See Verified 04/25/18 18:28 Comments Diphenoxylate Allergy unknown Verified 04/25/18 18:28 enalapril Allergy unknown Verified 04/25/18 18:28 esomeprazole Allergy inknown Verified 04/25/18 18:28 gluten Allergy Diarrhea Verified 04/25/18 18:28 Hydromorphone Allergy unknown Verified 04/25/18 18:28 Iodinated Contrast- Oral and Allergy unknown Verified 04/25/18 18:28 IV Dye [Iodinated Contrast Media - IV Dye] nitrofurantoin Allergy unknown Verified 04/25/18 18:28 Penicillins Allergy unkown Verified 04/25/18 18:28 piroxicam Allergy unknown Verified 04/25/18 18:28 Sulfa (Sulfonamide Allergy unknown Verified 04/25/18 18:28 Antibiotics) - Respiratory Orders None Smoking Cessation: Smoking cessation has been advised. For more information, call the [place] Tobacco Quit Line at 4-753-LEWP-NOW. - Mobility Orders Bedrest - Rehabiliation Orders Rehab Potential: Poor - Diet Orders Regular CERTIFICATION: I certify that the transfer of the above named patient to an Extended Care Facility is necessary for the continuing treatment of the diagnosis listed. The above information is true and accurate reflection of patient's current condition. Confidential - Redisclosure prohibited without a patient's written consent.
== END 2018-04-27 16:41 ==
LOC: EMEROOARM 17:54 → 3BNU 17:54 → SUATTDRO 19:45 → 3BNU 20:21
PROVIDERS: ADMIT Family Medicine; ATTEND Internal Medicine

== ENCOUNTER 2018-06-04 15:17 | Observation (INO) ==
[2018-06-04] MEDS ORDERED: 0.9 % Sodium Chloride 1,000 ML IVC ONE ×2 (15:32→16:22)
--- NOTE | 2018-06-04 16:26 | Emergency Department Note ---
Disposition Clinical Impression: Atrial fibrillation with RVR UTI (urinary tract infection) Qualifiers: Urinary tract infection type: site unspecified Hematuria presence: without hematuria Qualified Code(s): N39.0 - Urinary tract infection, site not specified Disposition: Admitted As Inpatient Condition: Fair Referrals: Braden Garibay MD [Primary Care Provider] - Forms: ED Satisfaction Letter General Adult HPI - General Chief complaint: ED Arrhythmia/Palpitations Stated complaint: A Fib Time Seen by Provider: 06/04/18 15:19 Source: family, EMS Mode of arrival: EMS Limitations: physical limitation Nursing Notes Reviewed: Yes Vital Signs Reviewed: Yes - History of Present Illness HPI Narrative: 82-year-old female with significant past medical history of atrial fibrillation on metoprolol 25 mg twice a day with no anticoagulation presenting to the [facility] chief complaint of high heart rate. Patient was sent from [facility] facility. Patient unable to provide any history of present illness. She states she has some arm pain but this is chronic. Denies any chest pain or pressure. Denies any shortness of breath or abdominal pain. According to [facility] facility patient had elevated heart rate up to 150 therefore was transferred here. Family at bedside is concerned that she is slightly altered and not her normal self. Concern for slurring of speech. They state that she has had multiple urinary tract infections in the past and is concerned this could be the cause. Pain Scale: 2 - Related Data Home Medications Medication Instructions Recorded Confirmed Acetaminophen [Tylenol] 650 mg PO Q6HR PRN 09/14/15 06/04/18 Budesonide/Formoterol 160/4.5 2 puff IH BIDR 09/14/15 06/04/18 [Symbicort 160/4.5] Docusate [Colace] 100 mg PO BID 09/14/15 06/04/18 Folic Acid 1 mg PO DAILY 09/14/15 06/04/18 Magnesium Oxide [Magnesium] 400 mg PO DAILY 09/14/15 06/04/18 Memantine HCl [Namenda Xr] 28 mg PO DAILY 09/14/15 06/04/18 Omeprazole [PriLOSEC] 20 mg PO DAILY 09/14/15 06/04/18 Azelastine 0.1% Nasal [place] 2 spr NS BID 05/19/17 06/04/18 [Astelin] Carbidopa/Levodopa ER 50/200 1 tab PO BID 05/19/17 06/04/18 [Sinemet ER 50-200 Tab] Lactobacillus Acidophilus 1 cap PO BID 05/19/17 06/04/18 [Acidophilus] Magnesium Hydroxide [Milk of 30 ml PO DAILY PRN 05/19/17 06/04/18 Magnesia] Na Phos,M-B/Na Phos,Di-Ba [Fleet 1 each RC Q48H PRN 05/19/17 06/04/18 Enema Extra] Levothyroxine [Synthroid] 150 mcg PO DAILY 02/28/18 06/04/18 Quetiapine Fumarate [Seroquel] 25 mg PO HS 02/28/18 06/04/18 Mirtazapine 7.5 mg PO HS 04/25/18 06/04/18 Paroxetine HCl [Paxil] 20 mg PO DAILY 04/25/18 06/04/18 Calcitriol [Rocaltrol] 1.25 mcg PO Q48H 06/04/18 06/04/18 Calcium Carbonate/Vitamin D3 1 tab PO DAILY 06/04/18 06/04/18 [Calcium 600-Vit D3 400 Tablet] Previous Rx's Medication Instructions Recorded Bisacodyl [Dulcolax] 10 mg RC DAILY PRN #30 supp.rect 04/04/18 Megestrol Acetate [Megace] 800 mg PO DAILY #30 bottle 04/04/18 Metoprolol [Lopressor] 25 mg PO BID #30 tablet 04/04/18 Albuterol Sulfate [Ventolin Hfa] 2 puff IH Q4HR PRN #0 04/27/18 Allergies Allergy/AdvReac Type Severity Reaction Status Date / Time Amoxicillin Allergy unknown Verified 04/25/18 18:28 atropine Allergy unknown Verified 04/25/18 18:28 codeine Allergy See Verified 04/25/18 18:28 Comments Diphenoxylate Allergy unknown Verified 04/25/18 18:28 enalapril Allergy unknown Verified 04/25/18 18:28 esomeprazole Allergy inknown Verified 04/25/18 18:28 gluten Allergy Diarrhea Verified 04/25/18 18:28 Hydromorphone Allergy unknown Verified 04/25/18 18:28 Iodinated Contrast- Oral and Allergy unknown Verified 04/25/18 18:28 IV Dye [Iodinated Contrast Media - IV Dye] nitrofurantoin Allergy unknown Verified 04/25/18 18:28 Penicillins Allergy unkown Verified 04/25/18 18:28 piroxicam Allergy unknown Verified 04/25/18 18:28 Sulfa (Sulfonamide Allergy unknown Verified 04/25/18 18:28 Antibiotics) All systems ED: reviewed and negative except as stated. Constitutional: Denies: fever, chills Eyes: Reports: as per HPI ENT ED: Reports: as per HPI Cardiovascular: Denies: chest pain, dyspnea on exertion Respiratory: Denies: cough, dyspnea, wheezes Gastrointestinal: Denies: abdominal pain, vomiting, diarrhea Genitourinary: Reports: as per HPI Musculoskeletal: Reports: as per HPI Integumentary: Reports: as per HPI Neurological: Denies: numbness, paresthesias Psychiatric: Reports: as per HPI Endocrine: Reports: as per HPI Hematological/Lymphatic: Reports: as per HPI Allergic/Immunologic: Reports: as per HPI Past Medical History - Past Medical History Attestation: Yes The following information was validated with the patient. Medical history: Reports: atrial fibrillation, dementia, GERD, hypertension, thyroid disease, other Surgical history: Reports: no surgical history, thyroidectomy Psychiatric history: Reports: anxiety, depression ROLL FORMER history: Reports: no ROLL FORMER history - Social History Smoking Status: Never smoker Smokeless Tobacco Status: No Alcohol use: Reports: none Drug use: Reports: none Physical Exam - General Limitations: physical limitation General appearance: alert, in no apparent distress - Head Head exam: atraumatic, normocephalic, normal inspection - Eye Eye exam: Present: normal appearance. Absent: scleral icterus, conjunctival injection - ENT ENT exam: mucous membranes dry - Neck Neck exam: Present: normal inspection, full ROM. Absent: tenderness, mening ismus - Chest Chest inspection: Present: normal inspection, symmetric chest wall rise. Absent: tenderness, rash - Respiratory Respiratory exam: Present: normal lung sounds bilaterally. Absent: respiratory distress, wheezes - Cardiovascular Cardiovascular exam: Present: tachycardia, irregular rhythm - Abdominal Exam Abdominal exam: Present: soft, Non-Tender. Absent: distention, guarding, rebound - Extremities Exam Extremities exam: Present: normal inspection - Neurological Exam Neurological exam: Present: alert - Psychiatric Psychiatric exam: Present: normal affect, normal mood - Skin Skin exam: Present: warm, dry Course Course Narrative: 82-year-old female presenting in atrial fibrillation. Heart rate between 100- 150 in the room. Physical exam shows dry mucous membranes and an irregular tachycardic heart rate. Otherwise physical exam benign. At this time we will perform basic laboratory analysis including EKG, troponin urinalysis and a CT of the head due to patient's confusion. Disposition will most likely be admission the pending results. Patient's family at bedside and agree with this plan. We will fluid resuscitate the patient with a liter here to determine if she is dry leading to her atrial fibrillation. If not we will consider Lopressor. - Reevaluation(s) Reevaluation #1: Patient's tachycardia resolved after fluid resuscitation. Patient's urinalysis shows urinary tract infection. Patient's last to microbiology reports show sensitivity to vancomycin. We will provide her with one dose here. Otherwise laboratory analysis so far benign. At this time CT of the head also completed and is within normal limits. We will plan to admit the patient for further evaluation and treatment of her urinary tract infection and breakthrough atrial fibrillation. Patient remains alert and hemodynamically stable. Family members at bedside agree with this plan. I spoke with the hospitalist junction maker Dr. Casillas who agrees to accept the patient at this time. Vital Signs Temperature 98.5 F 06/04/18 15:27 Pulse Rate 120 06/04/18 15:27 Respiratory Rate 18 06/04/18 15:27 Blood Pressure 136/101 06/04/18 15:27 O2 Sat by Pulse Oximetry 94 06/04/18 15:27 Temperature 98.5 F 06/04/18 15:27 Pulse Rate 78 06/04/18 17:00 Respiratory Rate 18 06/04/18 16:25 Blood Pressure 101/87 06/04/18 17:00 O2 Sat by Pulse Oximetry 100 06/04/18 16:25 Oxygen Delivery Oxygen Delivery Room Air Medical Decision Making - Lab Data Result diagrams: 06/04/18 16:32 Lab Results 06/04/18 06/04/18 06/04/18 Range/Units 15:55 16:12 16:20 WBC (4.3-11.1) K/mcL RBC (3.82-4.97) M/mcL Hgb (11.5-15.4) g/dL Hct (35.3-44.9) % MCV (83.0-100.0) fL MCH (28.0-33.3) pg MCHC (31.6-35.5) g/dL RDW (11.5-14.5) % Plt Count (140-400) K/mcL MPV (9.4-12.4) fL Immature Gran % (0-4) % Seg Neutrophils % % Lymphocytes % % Monocytes % % Eosinophils % % Basophils % % Neutrophils # (1.6-8.9) K/mcL Lymphocytes # (0.6-4.6) K/mcL Monocytes # (0.0-1.3) K/mcL Eosinophils # (0.0-0.6) K/mcL Basophils # (0.0-0.2) K/mcL Immature Plt Fraction (1.1-6.1) % PT 13.2 H (9.4-12.1) Seconds INR 1.2 APTT 25.4 L (26.0-36.0) Seconds Urine Color Yellow (Yellow) Urine Clarity Turbid A (Clear) Urine pH 7.0 (5.0-8.0) pH Units Ur Specific [place] 1.021 (1.010-1.025) Urine Protein 100 H (Neg-Trace) mg/dL Urine Glucose (UA) Normal (Normal) mg/dL Urine Ketones Negative (Negative) mg/dL Urine Blood Small H (Negative) Urine Nitrite Positive A (Negative) Urine Bilirubin Negative (Negative) Urine Urobilinogen Normal (Normal) mg/dL Ur Leukocyte Esterase Large H (Negative) Urine Microscopic RBC 5-15 H (0-3) per hpf Urine Microscopic WBC TNTC H (0-3) per hpf Ur Squamous Epith Cells Many H (None-Few) per lpf Urine Bacteria Moderate H (None-Few) per hpf Ur Culture Indicated? NO. A (NO) Specimen Rejected Clotted 06/04/18 Range/Units 16:32 WBC 7.9 (4.3-11.1) K/mcL RBC 4.05 (3.82-4.97) M/mcL Hgb 11.9 (11.5-15.4) g/dL Hct 39.5 (35.3-44.9) % MCV 97.5 (83.0-100.0) fL MCH 29.4 (28.0-33.3) pg MCHC 30.1 L (31.6-35.5) g/dL RDW 15.0 H (11.5-14.5) % Plt Count 87 L (140-400) K/mcL MPV 13.1 H (9.4-12.4) fL Immature Gran % 0.5 (0-4) % Seg Neutrophils % 77.1 % Lymphocytes % 12.0 % Monocytes % 8.9 % Eosinophils % 1.0 % Basophils % 0.5 % Neutrophils # 6.1 (1.6-8.9) K/mcL Lymphocytes # 1.0 (0.6-4.6) K/mcL Monocytes # 0.7 (0.0-1.3) K/mcL Eosinophils # 0.1 (0.0-0.6) K/mcL Basophils # 0.0 (0.0-0.2) K/mcL Immature Plt Fraction 17.2 H (1.1-6.1) % PT (9.4-12.1) Seconds INR APTT (26.0-36.0) Seconds Urine Color (Yellow) Urine Clarity (Clear) Urine pH (5.0-8.0) pH Units Ur Specific [place] (1.010-1.025) Urine Protein (Neg-Trace) mg/dL Urine Glucose (UA) (Normal) mg/dL Urine Ketones (Negative) mg/dL Urine Blood (Negative) Urine Nitrite (Negative) Urine Bilirubin (Negative) Urine Urobilinogen (Normal) mg/dL Ur Leukocyte Esterase (Negative) Urine Microscopic RBC (0-3) per hpf Urine Microscopic WBC (0-3) per hpf Ur Squamous Epith Cells (None-Few) per lpf Urine Bacteria (None-Few) per hpf Ur Culture Indicated? (NO) Specimen Rejected - EKG Data EKG #1 EKG attestation: Yes I reviewed and interpreted this EKG. EKG results narrative: Atrial fibrillation. 135 bpm. QRS 66, QTC 5:15. No sign of acute ST segment elevation or ischemia. Compared to previous EKG completed on 04/05/2018 new tachycardia but otherwise unchanged
[2018-06-04 16:29] LABS: INR 1.2; Prothrombin Time 13.2 Seconds (9.4-12.1)
[2018-06-04 16:31] LABS: Activated Partial Thrombo Time 25.4 Seconds (26.0-36.0)
[2018-06-04] MEDS ORDERED: *HR* Metoprolol 5 MG/5 ML VIAL IVP ONE (16:31)
[2018-06-04 16:41] LABS: Bilirubin,Urine Negative (Negative); Blood,Urine Small (Negative); Clarity,Urine Turbid (Clear); Color,Urine Yellow (Yellow); Glucose,Urine (UA) Normal (Normal); Ketones,Urine Negative (Negative); Leukocyte Esterase,Urine Large (Negative); Nitrite,Urine Positive (Negative); Protein,Urine 100 mg/dL (Neg-Trace); Specific Gravity,Urine 1.021 (1.010-1.025); Urobilinogen,Urine Normal (Normal)
[2018-06-04 16:44] LABS: Bacteria,Urine Moderate per hpf (None-Few); Squamous Epithelial Cell,Urine Many per lpf (None-Few); WBC,Urine TNTC per hpf (0-3)
--- NOTE | 2018-06-04 16:47 | Emergency Department Note ---
Disposition Clinical Impression: Atrial fibrillation with RVR UTI (urinary tract infection) Qualifiers: Urinary tract infection type: site unspecified Hematuria presence: without hematuria Qualified Code(s): N39.0 - Urinary tract infection, site not specified Disposition: Admitted As Inpatient Referrals: Braden Garibay MD [Primary Care Provider] - Forms: ED Satisfaction Letter General Adult HPI - General Chief complaint: ED Arrhythmia/Palpitations Stated complaint: A Fib Time Seen by Provider: 06/04/18 15:19 Source: EMS Limitations: physical limitation - History of Present Illness Pain Scale: 2 - Related Data Home Medications Medication Instructions Recorded Confirmed Acetaminophen [Tylenol] 650 mg PO Q6HR PRN 09/14/15 04/25/18 Budesonide/Formoterol 160/4.5 2 puff IH BIDR 09/14/15 04/25/18 [Symbicort 160/4.5] Docusate [Colace] 100 mg PO BID 09/14/15 04/25/18 Folic Acid 1 mg PO DAILY 09/14/15 04/25/18 Magnesium Oxide [Magnesium] 400 mg PO DAILY 09/14/15 04/25/18 Memantine HCl [Namenda Xr] 28 mg PO DAILY 09/14/15 04/25/18 Omeprazole [PriLOSEC] 20 mg PO DAILY 09/14/15 04/25/18 Azelastine 0.1% Nasal [place] 2 spr NS BID 05/19/17 04/25/18 [Astelin] Carbidopa/Levodopa ER 50/200 1 tab PO BID 05/19/17 04/25/18 [Sinemet ER 50-200 Tab] Lactobacillus Acidophilus 1 cap PO BID 05/19/17 04/25/18 [Acidophilus] Magnesium Hydroxide [Milk of 30 ml PO DAILY PRN 05/19/17 04/25/18 Magnesia] Na Phos,M-B/Na Phos,Di-Ba [Fleet 1 each RC Q48H PRN 05/19/17 04/25/18 Enema Extra] Levothyroxine [Synthroid] 150 mcg PO DAILY 02/28/18 04/25/18 Quetiapine Fumarate [Seroquel] 25 mg PO HS 02/28/18 04/25/18 Mirtazapine 7.5 mg PO HS 04/25/18 04/25/18 Paroxetine HCl [Paxil] 20 mg PO DAILY 04/25/18 04/25/18 Previous Rx's Medication Instructions Recorded Bisacodyl [Dulcolax] 10 mg RC DAILY PRN #30 supp.rect 04/04/18 Megestrol Acetate [Megace] 800 mg PO DAILY #30 bottle 04/04/18 Metoprolol [Lopressor] 25 mg PO BID #30 tablet 04/04/18 Albuterol Sulfate [Ventolin Hfa] 2 puff IH Q4HR PRN #0 04/27/18 Calcium Carbonate/Vitamin D3 1 tab PO QID #0 04/27/18 [Calcium 600-Vit D3 400 Tablet] Allergies Allergy/AdvReac Type Severity Reaction Status Date / Time Amoxicillin Allergy unknown Verified 04/25/18 18:28 atropine Allergy unknown Verified 04/25/18 18:28 codeine Allergy See Verified 04/25/18 18:28 Comments Diphenoxylate Allergy unknown Verified 04/25/18 18:28 enalapril Allergy unknown Verified 04/25/18 18:28 esomeprazole Allergy inknown Verified 04/25/18 18:28 gluten Allergy Diarrhea Verified 04/25/18 18:28 Hydromorphone Allergy unknown Verified 04/25/18 18:28 Iodinated Contrast- Oral and Allergy unknown Verified 04/25/18 18:28 IV Dye [Iodinated Contrast Media - IV Dye] nitrofurantoin Allergy unknown Verified 04/25/18 18:28 Penicillins Allergy unkown Verified 04/25/18 18:28 piroxicam Allergy unknown Verified 04/25/18 18:28 Sulfa (Sulfonamide Allergy unknown Verified 04/25/18 18:28 Antibiotics) Past Medical History - Past Medical History Medical history: Reports: atrial fibrillation, dementia, GERD, hypertension, thyroid disease, other Surgical history: Reports: no surgical history, thyroidectomy Psychiatric history: Reports: anxiety, depression JOURNEYMAN 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: Reports: no JOURNEYMAN 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 - Social History Smoking Status: Never smoker Smokeless Tobacco Status: No Alcohol use: Reports: none Drug use: Reports: none Physical Exam - General Limitations: physical limitation General appearance: alert, in no apparent distress Course - Consultations Consultation #1: discussed case with Dr Casillas for admission and she has acceptd patient to her service for miedicine, pending HCT Time: 17:11 Vital Signs Temperature 98.5 F 06/04/18 15:27 Pulse Rate 120 06/04/18 15:27 Respiratory Rate 18 06/04/18 15:27 Blood Pressure 136/101 06/04/18 15:27 O2 Sat by Pulse Oximetry 94 06/04/18 15:27 Temperature 98.5 F 06/04/18 15:27 Pulse Rate 78 06/04/18 17:00 Respiratory Rate 18 06/04/18 16:25 Blood Pressure 101/87 06/04/18 17:00 O2 Sat by Pulse Oximetry 100 06/04/18 16:25 Oxygen Delivery Oxygen Delivery Room Air Medical Decision Making - Lab Data Lab Results 06/04/18 06/04/18 06/04/18 Range/Units 15:55 16:12 16:20 PT 13.2 H (9.4-12.1) Seconds INR 1.2 APTT 25.4 L (26.0-36.0) Seconds Urine Color Yellow (Yellow) Urine Clarity Turbid A (Clear) Urine pH 7.0 (5.0-8.0) pH Units Ur Specific [place] 1.021 (1.010-1.025) Urine Protein 100 H (Neg-Trace) mg/dL Urine Glucose (UA) Normal (Normal) mg/dL Urine Ketones Negative (Negative) mg/dL Urine Blood Small H (Negative) Urine Nitrite Positive A (Negative) Urine Bilirubin Negative (Negative) Urine Urobilinogen Normal (Normal) mg/dL Ur Leukocyte Esterase Large H (Negative) Urine Microscopic RBC 5-15 H (0-3) per hpf Urine Microscopic WBC TNTC H (0-3) per hpf Ur Squamous Epith Cells Many H (None-Few) per lpf Urine Bacteria Moderate H (None-Few) per hpf Ur Culture Indicated? NO. A (NO) Specimen Rejected Clotted Attestation Statement - Attestation Attestation: I examined this patient and my medical decision-making was reviewed with the Resident Physician. I agree with the documented findings, disposition and treatment plan as described except to the extent set forth below. 82 year old female presents to the ED with complaints of afib and AMS from group home wiht a history of UTI. FAmily at bedside are the historians as she is altered although protecting her airway. Mary has a hitory of afib and is currenly in RVR secondaary to likely a UTI. During the straright cath it was noticed that ke had a graet deal of toilet paper in the vaginal canal. Mary is otherwise altered and family at bedside state that it is worse from her baseline and that she does have a history of dementia but this is worse. WE will do infetious worup, re-hrdayte and give loprssor for therpay as this is what she takes at home metoprolol without anticoagualtiong. Mary will likely be admitted to [facility].
[2018-06-04 17:02] LABS: Hematocrit 39.5 % (35.3-44.9)
[2018-06-04 17:04] LABS: Basophils % 0.5 %; Eosinophils # 0.1 K/mcL (0.0-0.6); Hemoglobin 11.9 g/dL (11.5-15.4); Immature Granulocytes % 0.5 % (0-4); Immature Platelets 17.2 % (1.1-6.1); Mean Corpuscular HGB Conc 30.1 g/dL (31.6-35.5); Mean Corpuscular Hemoglobin 29.4 pg (28.0-33.3); Mean Corpuscular Volume 97.5 fL (83.0-100.0); Mean Platelet Volume 13.1 fL (9.4-12.4); Monocytes # 0.7 K/mcL (0.0-1.3); Monocytes % 8.9 %; Neutrophils # 6.1 K/mcL (1.6-8.9); Red Blood Count 4.05 M/mcL (3.82-4.97); Segmented Neutrophils % 77.1 %
[2018-06-04 17:12] LABS: Platelet Count 87 K/mcL (140-400)
[2018-06-04] MEDS ORDERED: Naloxone 0.4 MG/ML INJ IVP PRN (18:35)
[2018-06-04] MEDS ORDERED: Acetaminophen 325 MG TABLET PO PRN (18:35)
[2018-06-04] MEDS ORDERED: MOM Conc 10 ML UD.LIQ PO PRN (18:41)
--- NOTE | 2018-06-04 18:56 | Internal Med History&Physical ---
Date of Encounter: 06/04/18 Time of Encounter: 17:20 Internal Medicine - H&P: HPI Chief complaint: Palpitation Admitted From: Long-term Nursing Facility Plans for Post Hospital Care: Transfer Nursing Home Facility History of present illness: Ms. Griffin is a 82 year old female send to ER from [place] for tachycardia. PMH is significant for A Fib, HTN, hypothyroidism, hypoparathyroidism, COPD, dementia, Parkinson disease, Ciliac disease. Pt was found tachycardia in [place] with HR 150s. Pt denies chest pain, SOB, nausea, vomiting, or fever. Pt has no cough. Pt was also found more confused, most like she had UTI last time. Pt denies dysuria or flank pain. In the ER, she was found A Fib RVR. She was treated with IVF and iv metoprolol, after treatment, Her HR get down to 70-80s. UA shows UTI. Pt was started vanco as one month ago her urine culture shows MRSA. Pt was admitted for further management. Past Med Surg Social Fam HX - Past Medical History Medical history: atrial fibrillation, dementia, GERD, hypertension, thyroid disease, other Additional medical history: Parkinson's, UTI, FTT Psychiatric history: anxiety, depression - Past Surgical History Surgical History: no surgical history, thyroidectomy Additional surgical history: thyroidectomy - Social History Smoking Status: Never smoker Smokeless Tobacco Status: No Alcohol use: none Drug use: none - Family History Father Living Status: Hx Family Cardiac Disorders: Yes Mother Living Status: Hx Family Cardiac Disorders: Yes Internal Medicine - H&P: Meds Acetaminophen [Tylenol] 650 mg PO Q6HR PRN 09/14/15 [History] Budesonide/Formoterol 160/4.5 [Symbicort 160/4.5] 2 puff IH BIDR 09/14/15 [History] Docusate [Colace] 100 mg PO BID 09/14/15 [History] Folic Acid 1 mg PO DAILY 09/14/15 [History] Magnesium Oxide [Magnesium] 400 mg PO DAILY 09/14/15 [History] Memantine HCl [Namenda Xr] 28 mg PO DAILY 09/14/15 [History] Omeprazole [PriLOSEC] 20 mg PO DAILY 09/14/15 [History] Azelastine 0.1% Nasal [place] [Astelin] 2 spr NS BID 05/19/17 [History] Carbidopa/Levodopa ER 50/200 [Sinemet ER 50-200 Tab] 1 tab PO BID 05/19/17 [History] Lactobacillus Acidophilus [Acidophilus] 1 cap PO BID 05/19/17 [History] Magnesium Hydroxide [Milk of Magnesia] 30 ml PO DAILY PRN 05/19/17 [History] Na Phos,M-B/Na Phos,Di-Ba [Fleet Enema Extra] 1 each RC Q48H PRN 05/19/17 [History] Levothyroxine [Synthroid] 150 mcg PO DAILY 02/28/18 [History] Quetiapine Fumarate [Seroquel] 25 mg PO HS 02/28/18 [History] Bisacodyl [Dulcolax] 10 mg RC DAILY PRN #30 supp.rect 04/04/18 [Rx] Megestrol Acetate [Megace] 800 mg PO DAILY #30 bottle 04/04/18 [Rx] Metoprolol [Lopressor] 25 mg PO BID #30 tablet 04/04/18 [Rx] Mirtazapine 7.5 mg PO HS 04/25/18 [History] Paroxetine HCl [Paxil] 20 mg PO DAILY 04/25/18 [History] Albuterol Sulfate [Ventolin Hfa] 2 puff IH Q4HR PRN #0 04/27/18 [Rx] Calcitriol [Rocaltrol] 1.25 mcg PO Q48H 06/04/18 [History] Calcium Carbonate/Vitamin D3 [Calcium 600-Vit D3 400 Tablet] 1 tab PO DAILY 06/04/18 [History] Allergy/AdvReac Type Severity Reaction Status Date / Time Amoxicillin Allergy unknown Verified 04/25/18 18:28 atropine Allergy unknown Verified 04/25/18 18:28 codeine Allergy See Verified 04/25/18 18:28 Comments Diphenoxylate Allergy unknown Verified 04/25/18 18:28 enalapril Allergy unknown Verified 04/25/18 18:28 esomeprazole Allergy inknown Verified 04/25/18 18:28 gluten Allergy Diarrhea Verified 04/25/18 18:28 Hydromorphone Allergy unknown Verified 04/25/18 18:28 Iodinated Contrast- Oral and Allergy unknown Verified 04/25/18 18:28 IV Dye [Iodinated Contrast Media - IV Dye] nitrofurantoin Allergy unknown Verified 04/25/18 18:28 Penicillins Allergy unkown Verified 04/25/18 18:28 piroxicam Allergy unknown Verified 04/25/18 18:28 Sulfa (Sulfonamide Allergy unknown Verified 04/25/18 18:28 Antibiotics) All Systems PM: A 10-system review of systems was performed and is negative for pertinent findings except as documented above in the HPI. - Constitutional Vitals: Temp Pulse Resp BP Pulse Ox 98.5 F 78 18 101/87 100 06/04/18 15:27 06/04/18 17:00 06/04/18 16:25 06/04/18 17:00 06/04/18 16:25 General appearance: Present: A&O X 2, no acute distress, answers questions appropriately Exam: in NAD - Head Head exam: Present: atraumatic, normocephalic - Eye Eye exam: Present: PERRL, conjuntiva pink, sclera anicteric Pupils: Present: PERRL - Neck Neck exam general surgery: Present: supple, trachea midline. Absent: lymphadenopathy - Respiratory Respiratory exam: Present: CTAB. Absent: accessory muscle use, rales, rhonchi, wheezes - Cardiovascular Cardiovascular exam: Present: irregular rhythm, +S1, +S2. Absent: diastolic murmur, gallop, rubs, systolic murmur - GI/Abdominal GI/Abdominal exam: Present: normal bowel sounds, soft, tenderness (Mild tenderness on lower abd w/o rebound or guarding), no peritoneal signs. Absent: distended - Extremities Exam Extremities exam: Present: warm, radial pulses palpable and symmetrical. Absent: calf tenderness, cyanotic, pedal edema - Neurological Exam Neurological exam: Present: CN II-XII intact, oriented X3, no focal deficits. Absent: pronater drift, facial droop, speech deficit - Skin Skin exam: Present: dry, intact Internal Med - H&P Results - Labs CBC & Chem 7: 06/04/18 16:32 Labs: Short CBC 06/04/18 Range/Units 16:32 WBC 7.9 (4.3-11.1) K/mcL Hgb 11.9 (11.5-15.4) g/dL Hct 39.5 (35.3-44.9) % Plt Count 87 L (140-400) K/mcL Neutrophils # 6.1 (1.6-8.9) K/mcL Urine 06/04/18 Range/Units 16:12 Urine Color Yellow (Yellow) Urine Clarity Turbid A (Clear) Urine pH 7.0 (5.0-8.0) pH Units Ur Specific [place] 1.021 (1.010-1.025) Urine Protein 100 H (Neg-Trace) mg/dL Urine Glucose (UA) Normal (Normal) mg/dL - Impressions ITS Impressions Chest X-Ray 06/04/18 15:33 IMPRESSION: 1. No active pulmonary disease. D/ / aFvian Johnson MD / Favian Johnson MD Interpreting Provider: Favian Johnson MD Head CT 06/04/18 16:22 IMPRESSION: 1. No acute intracranial abnormality. 2. Diffuse cerebral atrophy with chronic small vessel ischemic disease. D/ / Favian Johnson MD / Favian Johnson MD Interpreting Provider: Favian Johnson MD - Assessment and plan (1) Hypoparathyroidism Current Visit: Yes Status: Acute Assessment and plan: Due to thyroidectomy. Cont home meds Calcium and calcitriol. Monitor Calcium and magnesium level. Qualifiers: Hypoparathyroidism type: other hypoparathyroidism Qualified Code(s): E20.8 - Other hypoparathyroidism (2) DVT prophylaxis Current Visit: No Status: Acute Assessment and plan: EPCDs, no heparin b/o thrombocytopenia. (3) Dehydration Current Visit: No Status: Resolved Assessment and plan: Pt looks dry, tachycardia improved after hydration. Cont IVF with D5+0.45% NS at 75 ml per hour. (4) Atrial fibrillation with RVR Current Visit: Yes Status: Chronic Assessment and plan: Improved after hydration. Cont home med po metoprolol. Pt is not on any anticoagulation at home, possibly due to fall risk. (5) COPD (chronic obstructive pulmonary disease) Current Visit: No Status: Chronic Assessment and plan: No wheezing. Cont home meds. Qualifiers: COPD type: emphysema Emphysema type: unspecified Qualified Code(s): J43.9 - Emphysema, unspecified (6) UTI (urinary tract infection) Current Visit: No Status: Suspected Assessment and plan: Pt has confusion, which was her presentation previously with UTI. Pt has urine culture one month ago showing MRSA, will cont iv vanco, repeat urine culture. Qualifiers: Urinary tract infection type: site unspecified Hematuria presence: without hematuria Qualified Code(s): N39.0 - Urinary tract infection, site not specified (7) Depression Current Visit: No Status: Acute Assessment and plan: Cont home meds. Qualifiers: Depression Type: major depressive disorder Major depression recurrence: recurrent Active/Remission status: in partial remission Qualified Code(s): F33.41 - Major depressive disorder, recurrent, in partial remission (8) Parkinson disease Current Visit: No Status: Chronic Assessment and plan: Cont home meds carbidopa/levodopa, family said pt has some times choking, will consult speech therapy for diet recommendation. 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 (11) Hypothyroidism Current Visit: No Status: Chronic Assessment and plan: Cont home meds synthroid. Qualifiers: Hypothyroidism type: postoperative Qualified Code(s): E89.0 - Postprocedural hypothyroidism - Time Spent With Patient Total time spent is greater than 50% in coordination of care (as documented) at patient's floor/unit and/or counseling patient: 40 min 25 - 35 minutes
[2018-06-04] MEDS ORDERED: Vancomycin 1 EACH in 0.9 % Sodium Chloride 250 ML IVPB SCH (19:00)
[2018-06-04 19:24] LABS: BUN/Creatinine Ratio 22 (6-26); Blood Urea Nitrogen 35 mg/dL (8-23); Calcium 9.1 mg/dL (8.6-10.3); Carbon Dioxide 17 mEq/L (23-29); Chloride 109 mEq/L (98-107); Glucose 116 mg/dL (70-105); Osmolality,Calculated 299 (280-300); Potassium 4.5 mEq/L (3.5-5.1); Sodium 140 mEq/L (136-145); Thyroid Stimulating Hormone 7.795 mcIU/mL (0.340-5.600); Troponin I < 0.03 ng/mL (< 0.04); eGFR For Non-African Americans 31 (> 60)
[2018-06-04] MEDS: Carbidopa/Levodopa ER 50/200 TABLET PO SCH (20:15)
[2018-06-04] MEDS: Lactobacillus 1 EACH CAP.SPRINK PO SCH (22:14)
[2018-06-04] MEDS: Mirtazapine 15 MG TABLET PO SCH (22:16)
[2018-06-04] MEDS: D5% in 0.45% NACL 1,000 ML IVC SCH (22:17)
[2018-06-04] MEDS: Budesonide/Formoterol 160/4.5 1 PUFF INH IH SCH (22:51)
[2018-06-05 06:00] LABS: Monocytes % 8.2 %; Red Cell Distribution Width 15.3 % (11.5-14.5)
[2018-06-05 06:02] LABS: Basophils % 0.4 %; Eosinophils # 0.1 K/mcL (0.0-0.6); Hematocrit 33.3 % (35.3-44.9); Immature Granulocytes % 0.3 % (0-4); Immature Platelets 23.6 % (1.1-6.1); Lymphocytes # 0.8 K/mcL (0.6-4.6); Lymphocytes % 11.2 %; Mean Corpuscular Volume 96.5 fL (83.0-100.0); Monocytes # 0.6 K/mcL (0.0-1.3); Neutrophils # 5.4 K/mcL (1.6-8.9); Red Blood Count 3.45 M/mcL (3.82-4.97); Segmented Neutrophils % 78.9 %
[2018-06-05 06:04] LABS: Platelet Count 64 K/mcL (140-400)
[2018-06-05 06:26] LABS: Alanine Aminotransferase < 3 Units/L (7-52); Albumin 3.2 g/dL (3.5-5.7); Albumin/Globulin Ratio 1.2 (1.1-2.2); Alkaline Phosphatase 63 Units/L (34-104); Aspartate Amino Transferase 13 Units/L (13-39); BUN/Creatinine Ratio 26 (6-26); Bilirubin,Total 0.9 mg/dL (0.3-1.0); Blood Urea Nitrogen 30 mg/dL (8-23); Calcium 8.5 mg/dL (8.6-10.3); Carbon Dioxide 24 mEq/L (23-29); Chloride 111 mEq/L (98-107); Globulin 2.6 g/dL (2.4-3.5); Glucose 119 mg/dL (70-105); Magnesium 1.8 mg/dL (1.6-2.6); Osmolality,Calculated 303 (280-300); Phosphorous 3.1 mg/dL (2.7-4.5); Potassium 3.5 mEq/L (3.5-5.1); Sodium 143 mEq/L (136-145); Total Protein 5.8 g/dL (6.4-8.9); eGFR For Non-African Americans 45 (> 60)
[2018-06-05] MEDS: Budesonide/Formoterol 160/4.5 1 PUFF INH IH SCH ×2 (08:21→19:32)
[2018-06-05] MEDS: Magnesium Oxide 400 MG TABLET PO SCH (09:49)
[2018-06-05] MEDS: Carbidopa/Levodopa ER 50/200 TABLET PO SCH ×2 (09:49→19:47)
[2018-06-05] MEDS: Lactobacillus 1 EACH CAP.SPRINK PO SCH ×2 (09:50→19:46)
[2018-06-05] MEDS: Cholecalciferol (D-3) 1,000 UNIT TABLET PO SCH (09:50)
[2018-06-05] MEDS: Megestrol Acetate 400 MG/10 ML UDC PO SCH (09:50)
[2018-06-05] MEDS: D5% in 0.45% NACL 1,000 ML IVC SCH (12:35)
--- NOTE | 2018-06-05 14:39 | Internal Med Progress Note ---
Hospitalist Progress Note - Encounter Date of Encounter: 06/05/18 Time of Encounter: 10:00 - Subjective Interval History: Pt is still confused, looks lethargic. In no acute distress, denies SOB/chest pain. - Exam Vitals: Temp Pulse Resp BP Pulse Ox 98.9 F 80 12 109/71 93 06/05/18 10:15 06/05/18 10:15 06/05/18 10:15 06/05/18 10:15 06/05/18 10:15 Exam: Pt looks lethargic. in NAD HEENT: NC/AT, PERRL Neck: Supple, no JVD Lungs: CTA b/l Heart: S1S2, irregularly irregular, no murmurs Abd: Soft, NT Ext: No pedal edema Neuro: AAO x 1, no focal deficit. - Assessment and Plan (1) Hypoparathyroidism Current Visit: Yes Status: Acute Assessment and Plan: Due to thyroidectomy. Cont home meds Calcium and calcitriol. Monitor Calcium and magnesium level. (2) DVT prophylaxis Current Visit: No Status: Acute Assessment and Plan: EPCDs, no heparin b/o thrombocytopenia. (3) Dehydration Current Visit: No Status: Resolved Assessment and Plan: Improved after IVF with improved renal function. Cont IVF with D5+0.45% NS at 75 ml per hour. (4) Atrial fibrillation with RVR Current Visit: Yes Status: Chronic Assessment and Plan: Improved after hydration, HR 70-80s. Cont home med po metoprolol. Pt is not on any anticoagulation at home, possibly due to fall risk. (5) COPD (chronic obstructive pulmonary disease) Current Visit: No Status: Chronic Assessment and Plan: No wheezing. Cont home meds. (6) UTI (urinary tract infection) Current Visit: No Status: Suspected Assessment and Plan: Pt has confusion, which was her presentation previously with UTI. UA shows UTI. - Pt has urine culture one month ago showing MRSA, will cont iv vanco, repeat urine culture send, result pending. (7) Depression Current Visit: No Status: Acute Assessment and Plan: Cont home meds. (8) Parkinson disease Current Visit: No Status: Chronic Assessment and Plan: Cont home meds carbidopa/levodopa, family said pt has some times choking, will consult speech therapy for diet recommendation. (9) Thrombocytopenia Current Visit: No Status: Chronic Assessment and Plan: Seems chronic, closely f/u platelet level. No signs of active bleeding. (10) Celiac disease Current Visit: No Status: Chronic Assessment and Plan: Keep gluten free diet when diet started, consult greens tier. (11) Hypothyroidism Current Visit: No Status: Chronic Assessment and Plan: Cont home meds synthroid. - Time Spent with Patient Total time spent is greater than 50% in coordination of care (as documented) at patient's floor/unit and/or counseling patient: 40 min Greater than 35 minutes Plan of Care Discussed with: patient Internal Medicine: Result - Labs CBC & Chem 7: 06/05/18 04:58 06/05/18 04:58 Labs: Short CBC 06/04/18 06/05/18 Range/Units 16:32 04:58 WBC 7.9 6.9 (4.3-11.1) K/mcL Hgb 11.9 10.0 L D (11.5-15.4) g/dL Hct 39.5 33.3 L (35.3-44.9) % Plt Count 87 L 64 L (140-400) K/mcL Neutrophils # 6.1 5.4 (1.6-8.9) K/mcL BMP 06/04/18 06/05/18 15:55 04:58 Sodium 140 143 Potassium 4.5 3.5 Chloride 109 H 111 H Carbon Dioxide 17 L 24 BUN 35 H 30 H Creatinine 1.57 H 1.15 Glucose 116 H 119 H Calcium 9.1 8.5 L Cardiac Enzymes 06/04/18 Range/Units 15:55 Troponin I < 0.03 (< 0.04) ng/mL Liver Function 06/05/18 Range/Units 04:58 Total Bilirubin 0.9 (0.3-1.0) mg/dL AST 13 (13-39) Units/L ALT < 3 L (7-52) Units/L Alkaline Phosphatase 63 (34-104) Units/L Albumin 3.2 L (3.5-5.7) g/dL Urine 06/04/18 Range/Units 16:12 Urine Color Yellow (Yellow) Urine Clarity Turbid A (Clear) Urine pH 7.0 (5.0-8.0) pH Units Ur Specific [place] 1.021 (1.010-1.025) Urine Protein 100 H (Neg-Trace) mg/dL Urine Glucose (UA) Normal (Normal) mg/dL - ABG Interpretation ABG results: PT/INR, D-dimer PT 13.2 Seconds (9.4-12.1) H 06/04/18 15:55 - Impressions Impressions Chest X-Ray 06/04/18 15:33 IMPRESSION: 1. No active pulmonary disease. D/ / Favian Johnson MD / Favian Johnson MD Interpreting Provider: Favian Johnson MD Head CT 06/04/18 16:22 IMPRESSION: 1. No acute intracranial abnormality. 2. Diffuse cerebral atrophy with chronic small vessel ischemic disease. D/ / Favian Johnson MD / Favian Johnson MD Interpreting Provider: Favian Johnson MD Consult Discharge Plan - Plan (1) Hypoparathyroidism Qualifiers: Hypoparathyroidism type: other hypoparathyroidism Qualified Code(s): E20.8 - Other hypoparathyroidism (5) COPD (chronic obstructive pulmonary disease) Qualifiers: COPD type: emphysema Emphysema type: unspecified Qualified Code(s): J43.9 - Emphysema, unspecified (6) UTI (urinary tract infection) Qualifiers: Urinary tract infection type: site unspecified Hematuria presence: without hematuria Qualified Code(s): N39.0 - Urinary tract infection, site not specified (7) Depression Qualifiers: Depression Type: major depressive disorder Major depression recurrence: recurrent Active/Remission status: in partial remission Qualified Code(s): F33.41 - Major depressive disorder, recurrent, in partial remission (11) Hypothyroidism Qualifiers: Hypothyroidism type: postoperative Qualified Code(s): E89.0 - Postprocedural hypothyroidism
[2018-06-05] MEDS: Mirtazapine 15 MG TABLET PO SCH (19:47)
[2018-06-06 05:19] LABS: Mean Platelet Volume 13.7 fL (9.4-12.4); Monocytes % 7.4 %
[2018-06-06 05:21] LABS: Basophils % 0.6 %; Eosinophils # 0.2 K/mcL (0.0-0.6); Eosinophils % 2.2 %; Hematocrit 34.9 % (35.3-44.9); Hemoglobin 10.6 g/dL (11.5-15.4); Immature Granulocytes % 0.4 % (0-4); Immature Platelets 17.1 % (1.1-6.1); Lymphocytes # 0.8 K/mcL (0.6-4.6); Lymphocytes % 11.3 %; Mean Corpuscular HGB Conc 30.4 g/dL (31.6-35.5); Mean Corpuscular Hemoglobin 29.1 pg (28.0-33.3); Mean Corpuscular Volume 95.9 fL (83.0-100.0); Monocytes # 0.5 K/mcL (0.0-1.3); Neutrophils # 5.4 K/mcL (1.6-8.9); Red Blood Count 3.64 M/mcL (3.82-4.97); Red Cell Distribution Width 14.9 % (11.5-14.5); Segmented Neutrophils % 78.1 %
[2018-06-06 05:32] LABS: BUN/Creatinine Ratio 26 (6-26); Blood Urea Nitrogen 21 mg/dL (8-23); Calcium 7.9 mg/dL (8.6-10.3); Carbon Dioxide 22 mEq/L (23-29); Chloride 112 mEq/L (98-107); Glucose 96 mg/dL (70-105); Osmolality,Calculated 299 (280-300); Potassium 3.5 mEq/L (3.5-5.1); Sodium 143 mEq/L (136-145); eGFR For Non-African Americans > 60 (> 60)
[2018-06-06 05:45] LABS: Platelet Count 80 K/mcL (140-400)
[2018-06-06] MEDS: Lactobacillus 1 EACH CAP.SPRINK PO SCH ×2 (09:27→20:27)
[2018-06-06] MEDS: Carbidopa/Levodopa ER 50/200 TABLET PO SCH ×2 (09:28→20:28)
[2018-06-06] MEDS: Magnesium Oxide 400 MG TABLET PO SCH (09:28)
[2018-06-06] MEDS: levoFLOXacin 750 MG TABLET PO SCH (09:29)
[2018-06-06] MEDS: Megestrol Acetate 400 MG/10 ML UDC PO SCH (09:29)
[2018-06-06] MEDS: Cholecalciferol (D-3) 1,000 UNIT TABLET PO SCH (09:29)
[2018-06-06] MEDS ORDERED: *HR* Metoprolol 5 MG/5 ML VIAL IVP ONE (09:38)
[2018-06-06] MEDS ORDERED: 0.9 % Sodium Chloride 500 ML IVC ONE (10:40)
[2018-06-06] MEDS: Budesonide/Formoterol 160/4.5 1 PUFF INH IH SCH ×2 (10:43→20:06)
[2018-06-06] MEDS: 0.9 % Sodium Chloride 1,000 ML IVC SCH (11:54)
--- NOTE | 2018-06-06 12:37 | Internal Med Progress Note ---
Hospitalist Progress Note - Encounter Date of Encounter: 06/06/18 Time of Encounter: 09:00 - Subjective Interval History: Pt is more awake, alert today, knows she is in "[facility] [place]", denies dysuria or any other part "hurting". No fever. - Exam Vitals: Temp Pulse Resp BP Pulse Ox 98.7 F 90 16 101/62 96 06/06/18 07:17 06/06/18 12:01 06/06/18 12:01 06/06/18 12:01 06/06/18 12:01 Exam: Pt looks lethargic. in NAD HEENT: NC/AT, PERRL Neck: Supple, no JVD Lungs: CTA b/l Heart: S1S2, irregularly irregular, no murmurs Abd: Soft, NT Ext: No pedal edema Neuro: AAO x 1, no focal deficit. - Assessment and Plan (1) Hypoparathyroidism Current Visit: Yes Status: Acute Assessment and Plan: Due to thyroidectomy. Cont home meds Calcium and calcitriol. Monitor Calcium and magnesium level. (2) DVT prophylaxis Current Visit: No Status: Acute Assessment and Plan: EPCDs, no heparin b/o thrombocytopenia. (3) Dehydration Current Visit: No Status: Resolved Assessment and Plan: Improved after IVF with improved renal function. Cont IVF at this point as pt has poor intake. (4) Atrial fibrillation with RVR Current Visit: Yes Status: Chronic Assessment and Plan: Developped RVR again today, improved after iv metoprolol 5mg. Will increase home dose metoprolol to 50 mg bid if BP tolerate. Avoid dehydration with cont IVF now. Not on any AC at home probably due to fall risk/dementia. (5) COPD (chronic obstructive pulmonary disease) Current Visit: No Status: Chronic Assessment and Plan: No wheezing. Cont home meds. (6) UTI (urinary tract infection) Current Visit: No Status: Suspected Assessment and Plan: Pt has confusion, which was her presentation previously with UTI. UA shows UTI. - Pt has urine culture one month ago showing MRSA, will cont iv vanco - repeat urine culture preliminary result shows Gram negative yuval, add levaquin po. Follow final culture result. (7) Depression Current Visit: No Status: Acute Assessment and Plan: Cont home meds. (8) Parkinson disease Current Visit: No Status: Chronic Assessment and Plan: Cont home meds carbidopa/levodopa, family said pt has some times choking, diet started per speech therapy recommendation. (9) Thrombocytopenia Current Visit: No Status: Chronic Assessment and Plan: Seems chronic, closely f/u platelet level. No signs of active bleeding. (10) Celiac disease Current Visit: No Status: Chronic Assessment and Plan: Keep gluten free diet, consult sewing line baler. (11) Hypothyroidism Current Visit: No Status: Chronic Assessment and Plan: Cont home meds synthroid. DVT Prophylaxis: EPCDs - Time Spent with Patient Total time spent is greater than 50% in coordination of care (as documented) at patient's floor/unit and/or counseling patient: 30 min 25 - 35 minutes Plan of Care Discussed with: nurse Internal Medicine: Result - Labs CBC & Chem 7: 06/06/18 04:56 06/06/18 04:56 Labs: Short CBC 06/06/18 Range/Units 04:56 WBC 6.9 (4.3-11.1) K/mcL Hgb 10.6 L (11.5-15.4) g/dL Hct 34.9 L (35.3-44.9) % Plt Count 80 L (140-400) K/mcL Neutrophils # 5.4 (1.6-8.9) K/mcL BMP 06/06/18 04:56 Sodium 143 Potassium 3.5 Chloride 112 H Carbon Dioxide 22 L BUN 21 Creatinine 0.81 Glucose 96 Calcium 7.9 L - ABG Interpretation ABG results: PT/INR, D-dimer PT 13.2 Seconds (9.4-12.1) H 06/04/18 15:55 - Impressions Impressions Videofluoroscopic Swallow 06/05/18 09:39 IMPRESSION: Swallowing mechanism grossly within normal limits without evidence of aspiration. Please see separate speech pathology report for full discussion of findings and recommendations. D/ / Shen Askew MD / Shen Askew MD Interpreting Provider: Shen Askew MD - VTE Documentation of Mechanical Device: Intermittent pneumatic compression device Consult Discharge Plan - Plan Referrals: Braden Garibay MD [Primary Care Provider] - (Your appointment has been requested. Our offices will call with an appointment time and date) (1) Hypoparathyroidism Qualifiers: Hypoparathyroidism type: other hypoparathyroidism Qualified Code(s): E20.8 - Other hypoparathyroidism (5) COPD (chronic obstructive pulmonary disease) Qualifiers: COPD type: emphysema Emphysema type: unspecified Qualified Code(s): J43.9 - Emphysema, unspecified (6) UTI (urinary tract infection) Qualifiers: Urinary tract infection type: site unspecified Hematuria presence: without hematuria Qualified Code(s): N39.0 - Urinary tract infection, site not specified (7) Depression Qualifiers: Depression Type: major depressive disorder Major depression recurrence: recurrent Active/Remission status: in partial remission Qualified Code(s): F33.41 - Major depressive disorder, recurrent, in partial remission (11) Hypothyroidism Qualifiers: Hypothyroidism type: postoperative Qualified Code(s): E89.0 - Postprocedural hypothyroidism
[2018-06-06] MEDS ORDERED: Aminoglycoside Consult 1 EACH MC ONE (14:52)
[2018-06-06] MEDS: Mirtazapine 15 MG TABLET PO SCH (20:26)
[2018-06-07 03:58] LABS: Immature Granulocytes % 0.6 % (0-4); Mean Corpuscular Volume 96.4 fL (83.0-100.0)
[2018-06-07 03:59] LABS: Basophils % 0.4 %; Eosinophils # 0.1 K/mcL (0.0-0.6); Eosinophils % 2.4 %; Hematocrit 32.5 % (35.3-44.9); Hemoglobin 9.8 g/dL (11.5-15.4); Immature Platelets 16.5 % (1.1-6.1); Lymphocytes % 17.8 %; Mean Corpuscular HGB Conc 30.2 g/dL (31.6-35.5); Mean Corpuscular Hemoglobin 29.1 pg (28.0-33.3); Mean Platelet Volume 13.4 fL (9.4-12.4); Monocytes # 0.5 K/mcL (0.0-1.3); Red Blood Count 3.37 M/mcL (3.82-4.97); Red Cell Distribution Width 14.8 % (11.5-14.5); Segmented Neutrophils % 69.8 %
[2018-06-07 04:03] LABS: Neutrophils # 3.8 K/mcL (1.6-8.9); Platelet Count 77 K/mcL (140-400)
[2018-06-07 04:16] LABS: BUN/Creatinine Ratio 23 (6-26); Blood Urea Nitrogen 22 mg/dL (8-23); Calcium 8.2 mg/dL (8.6-10.3); Carbon Dioxide 20 mEq/L (23-29); Chloride 113 mEq/L (98-107); Glucose 84 mg/dL (70-105); Magnesium 1.7 mg/dL (1.6-2.6); Osmolality,Calculated 301 (280-300); Potassium 3.6 mEq/L (3.5-5.1); Sodium 144 mEq/L (136-145); eGFR For Non-African Americans 57 (> 60)
[2018-06-07] MEDS: Budesonide/Formoterol 160/4.5 1 PUFF INH IH SCH (07:43)
[2018-06-07] MEDS: Megestrol Acetate 400 MG/10 ML UDC PO SCH (08:04)
[2018-06-07] MEDS: Lactobacillus 1 EACH CAP.SPRINK PO SCH (08:04)
[2018-06-07] MEDS: levoFLOXacin 750 MG TABLET PO SCH (08:04)
[2018-06-07] MEDS: Magnesium Oxide 400 MG TABLET PO SCH (08:05)
[2018-06-07] MEDS: 0.9 % Sodium Chloride 1,000 ML IVC SCH (08:05)
[2018-06-07] MEDS: Carbidopa/Levodopa ER 50/200 TABLET PO SCH (08:05)
[2018-06-07] MEDS: Cholecalciferol (D-3) 1,000 UNIT TABLET PO SCH (08:05)
[2018-06-07 11:49] VITALS: BP 122/77
--- NOTE | 2018-06-07 11:57 | Discharge Summary ---
- NOTES TO OUTPATIENT PROVIDER Notes to Outpatient Provider: 1. Cont po levaquin for 5 more days for uncomplicated UTI. Date of Encounter: 06/07/18 Time of Encounter: 09:00 - Discharge Diagnosis (1) Hypoparathyroidism Priority: Secondary Status: Acute Qualifiers: Hypoparathyroidism type: other hypoparathyroidism Qualified Code(s): E20.8 - Other hypoparathyroidism (2) DVT prophylaxis Priority: Secondary Status: Acute (3) Dehydration Priority: Primary Status: Resolved (4) Atrial fibrillation with RVR Priority: Primary Status: Chronic (5) COPD (chronic obstructive pulmonary disease) Priority: Secondary Status: Chronic Qualifiers: COPD type: emphysema Emphysema type: unspecified Qualified Code(s): J43.9 - Emphysema, unspecified (6) UTI (urinary tract infection) Priority: Primary Status: Suspected Qualifiers: Urinary tract infection type: site unspecified Hematuria presence: without hematuria Qualified Code(s): N39.0 - Urinary tract infection, site not specified (7) Depression Priority: Secondary Status: Acute Qualifiers: Depression Type: major depressive disorder Major depression recurrence: recurrent Active/Remission status: in partial remission Qualified Code(s): F33.41 - Major depressive disorder, recurrent, in partial remission (8) Parkinson disease Priority: Secondary Status: Chronic (9) Thrombocytopenia Priority: Secondary Status: Chronic (10) Celiac disease Priority: Secondary Status: Chronic (11) Hypothyroidism Priority: Secondary Status: Chronic Qualifiers: Hypothyroidism type: postoperative Qualified Code(s): E89.0 - Postprocedural hypothyroidism Hospital course: Ms. Griffin is a 82 year old female sent to ER from [place] for tachycardia. She has hx of A Fib. Pt was also found more confused and UA shows UTI. Pt was consider UTI, dehydration. Pt was treated with iv metoprolol, IVF, and abx. Her HR get down to 70-80s after hydration. Cr get down to normal. Urine culture shows Morganella Miguel, sensitive to levaquin. Will D/C back to [place] with po levaquin. I saw and examined pt today, more awake, alert, still oriented x1 b/o baseline dementia. No fever, vitals stable. Will d/c pt back to [place] today and cont management in [place]. Discharge discussed with: social work - Time Spent with Patient Total time spent providing and/or coordinating discharge services: 30 min Less than 30 minutes - Discharge Medications Prescriptions: RX: levoFLOXacin [Levaquin] 750 mg PO DAILY 5 Days #5 tablet Home Medications: Acetaminophen [Tylenol] 650 mg PO Q6HR PRN 09/14/15 [History] Budesonide/Formoterol 160/4.5 [Symbicort 160/4.5] 2 puff IH BIDR 09/14/15 [History] Docusate [Colace] 100 mg PO BID 09/14/15 [History] Folic Acid 1 mg PO DAILY 09/14/15 [History] Magnesium Oxide [Magnesium] 400 mg PO DAILY 09/14/15 [History] Memantine HCl [Namenda Xr] 28 mg PO DAILY 09/14/15 [History] Omeprazole [PriLOSEC] 20 mg PO DAILY 09/14/15 [History] Azelastine 0.1% Nasal [place] [Astelin] 2 spr NS BID 05/19/17 [History] Carbidopa/Levodopa ER 50/200 [Sinemet ER 50-200 Tab] 1 tab PO BID 05/19/17 [History] Lactobacillus Acidophilus [Acidophilus] 1 cap PO BID 05/19/17 [History] Magnesium Hydroxide [Milk of Magnesia] 30 ml PO DAILY PRN 05/19/17 [History] Na Phos,M-B/Na Phos,Di-Ba [Fleet Enema Extra] 1 each RC Q48H PRN 05/19/17 [History] Levothyroxine [Synthroid] 150 mcg PO DAILY 02/28/18 [History] Quetiapine Fumarate [Seroquel] 25 mg PO HS 02/28/18 [History] Bisacodyl [Dulcolax] 10 mg RC DAILY PRN #30 supp.rect 04/04/18 [Rx] Megestrol Acetate [Megace] 800 mg PO DAILY #30 bottle 04/04/18 [Rx] Metoprolol [Lopressor] 25 mg PO BID #30 tablet 04/04/18 [Rx] Mirtazapine 7.5 mg PO HS 04/25/18 [History] Paroxetine HCl [Paxil] 20 mg PO DAILY 04/25/18 [History] Albuterol Sulfate [Ventolin Hfa] 2 puff IH Q4HR PRN #0 04/27/18 [Rx] Calcitriol [Rocaltrol] 1.25 mcg PO Q48H 06/04/18 [History] Calcium Carbonate/Vitamin D3 [Calcium 600-Vit D3 400 Tablet] 1 tab PO DAILY 06/04/18 [History] levoFLOXacin [Levaquin] 750 mg PO DAILY 5 Days #5 tablet 06/07/18 [Rx] Allergies/Adverse Reactions: Allergy/AdvReac Type Severity Reaction Status Date / Time Amoxicillin Allergy unknown Verified 04/25/18 18:28 atropine Allergy unknown Verified 04/25/18 18:28 codeine Allergy See Verified 04/25/18 18:28 Comments Diphenoxylate Allergy unknown Verified 04/25/18 18:28 enalapril Allergy unknown Verified 04/25/18 18:28 esomeprazole Allergy inknown Verified 04/25/18 18:28 gluten Allergy Diarrhea Verified 04/25/18 18:28 Hydromorphone Allergy unknown Verified 04/25/18 18:28 Iodinated Contrast- Oral and Allergy unknown Verified 04/25/18 18:28 IV Dye [Iodinated Contrast Media - IV Dye] nitrofurantoin Allergy unknown Verified 04/25/18 18:28 Penicillins Allergy unkown Verified 04/25/18 18:28 piroxicam Allergy unknown Verified 04/25/18 18:28 Sulfa (Sulfonamide Allergy unknown Verified 04/25/18 18:28 Antibiotics) Date of admission: 06/04/18 18:14 Primary care physician: Braden Garibay MD Consults: 06/04/18 18:38 Consult to Speech Therapy [CONS] Routine Comment: Evaluate, develop and implement POC Reason for Consult: Hx of Parkinson disease, swallow evaluation. Call Completed: No 06/04/18 18:45 consult to medical coding instructor [Consult to Nutrition] [CONS] Routine Comment: Consulting Provider: NUTRITION Reason for Dietary Consult: Other Other:: Need special diet for Ciliac Disease 06/05/18 07:42 Consult to Inclined Railway Operator [CONS] Routine Reason for SW Consult: MEDICAID BEDHOLD AT [facility] Discharging clinician: Lili Jordan Anticipated date of discharge: 06/07/18 - Constitutional Vitals: Temp Pulse Resp BP Pulse Ox 98.1 F 79 18 122/77 95 06/07/18 11:48 06/07/18 11:48 10/26/18 11:48 06/07/18 11:48 06/07/18 11:48 General appearance: Present: A&O X 1, no acute distress, answers questions appropriately Exam: Pt is more awake, alert. in NAD HEENT: NC/AT, PERRL Neck: Supple, no JVD Lungs: CTA b/l Heart: S1S2, irregularly irregular, no murmurs Abd: Soft, NT Ext: No pedal edema Neuro: AAO x 1, no focal deficit. - Patient Status Disposition: Transfer SNF Condition: Fair Overall status at discharge: patient is back to baseline - Discharge Instructions Follow Up With: Braden Garibay MD [Primary Care Provider] - (Your appointment has been requested. Our offices will call with an appointment time and date) Forms: Work/School Release - Diet and Activity Diet: other (Gluten free diet) - VTE Documentation of Mechanical Device: Intermittent pneumatic compression device
--- NOTE | 2018-06-08 21:11 | Electrocardiograph Report ---
[place] [id number] Test Date: 2018-06-04 Pat Name: Irma Griffin Department: [id number] Room: 3B41 Gender: F Junior Systems Engineer: : [id number] Requested By: Rose Mcdonough Order Number: [id number] Reading MD: Julio C Simmons Measurements Intervals [place] Rate: 135 P: LA: QRS: 8 QRSD: 66 T: 35 QT: 343 QTc: 515 Interpretive Statements Atrial fibrillation with rapid ventricular response Borderline T abnormalities, diffuse leads Prolonged QT interval Electronically Signed On 06-08-2018 21:09:22 EDT by Julio C Simmons
== END 2018-06-07 14:53 ==
LOC: EMEROOARM 15:17 → 3BNU 15:17
PROVIDERS: ADMIT Internal Medicine Nephrology; ATTEND Internal Medicine Nephrology

== ENCOUNTER 2018-09-17 10:46 | Inpatient (IN) ==
--- NOTE | 2018-09-17 10:49 | Emergency Department Note ---
Disposition Clinical Impression: Acute kidney injury, Dehydration, Hypercalcemia, Frail elderly, Abnormal EKG, Confusion, Anemia, Elevated troponin, Cerebrovascular disease, Pleural effusion Disposition: Admitted As Inpatient Referrals: Braden Garibay MD [Primary Care Provider] - General Adult HPI - General Stated complaint: Confusion Time Seen by Provider: 09/17/18 10:48 - History of Present Illness HPI Narrative: 83-year-old female reports emergency department via EMS from the longterm, there is concern for weakness and confusion. The patient's family members reports she is usually quite talkative but she has not been talking much at all the last day or so. The reports she has been leaning to the left over the last several days. There is no history of facial drooping or cm dysarthria. No history of unilateral arm or leg weakness or numbness. No trauma or fever. The patient's been eating less than usual. There is no history of acute chest pain shortness of breath vomiting or diarrhea. There is no history of difficulty moving the arms or legs independently. The patient's female relative augments most of the history, the patient does not verbalize complaints in detail. - Related Data Home Medications Medication Instructions Recorded Confirmed Acetaminophen [Tylenol] 650 mg PO Q6HR PRN 09/14/15 08/26/18 Budesonide/Formoterol 160/4.5 2 puff IH BIDR 09/14/15 08/26/18 [Symbicort 160/4.5] Docusate [Colace] 100 mg PO BID 09/14/15 08/26/18 Folic Acid 1 mg PO DAILY 09/14/15 08/26/18 Magnesium Oxide [Magnesium] 400 mg PO DAILY 09/14/15 08/26/18 Memantine HCl [Namenda Xr] 28 mg PO DAILY 09/14/15 08/26/18 Omeprazole [PriLOSEC] 20 mg PO DAILY 09/14/15 08/26/18 Azelastine 0.1% Nasal [place] 2 spr NS BID 05/19/17 08/26/18 [Astelin] Carbidopa/Levodopa ER 50/200 1 tab PO BID 05/19/17 08/26/18 [Sinemet ER 50-200 Tab] Lactobacillus Acidophilus 1 cap PO BID 05/19/17 08/26/18 [Acidophilus] Magnesium Hydroxide [Milk of 30 ml PO DAILY PRN 10/07/17 01/14/19 Magnesia] Quetiapine Fumarate [Seroquel] 12.5 mg PO HS 02/28/18 08/26/18 Mirtazapine 7.5 mg PO HS 04/25/18 08/26/18 Paroxetine HCl [Paxil] 20 mg PO DAILY 04/25/18 08/26/18 Calcitriol [Rocaltrol] 0.25 mcg PO DAILY 06/04/18 08/26/18 Calcium Carbonate/Vitamin D3 1 tab PO DAILY 06/04/18 08/26/18 [Calcium 600-Vit D3 400 Tablet] Ferrous Sulfate [Iron] 325 mg PO DAILY 07/15/18 08/26/18 Calcitriol 1 mcg PO DAILY 08/26/18 08/26/18 Previous Rx's Medication Instructions Recorded Bisacodyl [Dulcolax] 10 mg RC DAILY PRN #30 supp.rect 04/04/18 Megestrol Acetate [Megace] 800 mg PO DAILY #30 bottle 04/04/18 Albuterol Sulfate [Ventolin Hfa] 2 puff IH Q4HR PRN #0 04/27/18 Metoprolol [Lopressor] 50 mg PO BID #60 tablet 07/22/18 Levothyroxine [Synthroid] 175 mcg PO DAILY 30 Days #30 tablet 08/30/18 Allergies Allergy/AdvReac Type Severity Reaction Status Date / Time Amoxicillin Allergy unknown Verified 08/26/18 13:14 atropine Allergy unknown Verified 08/26/18 13:14 codeine Allergy See Verified 08/26/18 13:14 Comments Diphenoxylate Allergy unknown Verified 08/26/18 13:14 enalapril Allergy unknown Verified 08/26/18 13:14 esomeprazole Allergy Unknown Verified 08/26/18 13:14 gluten Allergy Diarrhea Verified 08/26/18 13:14 hydromorphone [Hydromorphone] Allergy unknown Verified 08/26/18 13:14 Iodinated Contrast- Oral and Allergy unknown Verified 08/26/18 13:14 IV Dye [Iodinated Contrast Media - IV Dye] nitrofurantoin Allergy unknown Verified 08/26/18 13:14 Penicillins Allergy unkown Verified 08/26/18 13:14 piroxicam Allergy unknown Verified 08/26/18 13:14 Sulfa (Sulfonamide Allergy unknown Verified 08/26/18 13:14 Antibiotics) Review of Systems: As Per HPI Limitations: ROS unobtainable due to patients medical condition Past Medical History - Past Medical History Medical history: Reports: atrial fibrillation, COPD, dementia, GERD, hypertension, osteoporosis, thyroid disease, venous stasis, other Surgical history: Reports: no surgical history, thyroidectomy Psychiatric history: Reports: anxiety, depression DREDGE PUMP OPERATOR history: Reports: no DREDGE PUMP OPERATOR history - Social History Smoking Status: Never smoker Smokeless Tobacco Status: No Alcohol use: Reports: none Drug use: Reports: none Physical Exam - General Limitations: altered mental status, age, other (Weak and generally slow to respond) General appearance: alert, in no apparent distress - Head Head exam: atraumatic, normocephalic, normal inspection - Eye Eye exam: Present: normal appearance, PERRL, EOMI. Absent: scleral icterus - ENT ENT exam: normal oropharynx, TM's normal bilaterally, normal external ear exam - Neck Neck exam: Present: normal inspection, full ROM, trachea midline - Chest Chest inspection: Present: symmetric chest wall rise. Absent: tenderness - Respiratory Respiratory exam: Present: normal lung sounds bilaterally. Absent: respiratory distress, prolonged expiratory phase - Cardiovascular Cardiovascular exam: Present: regular rate, normal rhythm, normal heart sounds - Abdominal Exam Abdominal exam: Present: soft, Non-Tender, normal bowel sounds. Absent: tenderness, distention, guarding, rebound, rigidity - Extremities Exam Extremities exam: Present: normal inspection, full ROM, normal capillary refill. Absent: tenderness, pedal edema, joint swelling - Expanded Lower Extremity Exam Hip/Pelvis exam: Present: full ROM. Absent: tenderness Upper leg exam: Present: full ROM. Absent: tenderness Knee exam: Present: full ROM. Absent: tenderness Lower leg exam: Present: full ROM. Absent: tenderness, Homans' sign Neurovascular/Tendon exam: Present: normal capillary refill. Absent: motor deficit, sensory deficit, tendon deficit, extremity cold to touch, pallor - Back Exam Back exam: Present: normal inspection, full ROM. Absent: tenderness, CVA tenderness (R), CVA tenderness (L), vertebral tenderness - Neurological Exam Neurological exam: Present: alert, CN II-XII intact, other (The patient displays good muscle tone in all 4 extremities and moves her upper extremities without apparent difficulty. Based on limited exam I appreciate no focal defects.) - Psychiatric Psychiatric exam: Present: flat affect - Skin Skin exam: Present: warm, dry, intact, normal color Course Vital Signs Temperature 98.4 F 09/17/18 10:51 Pulse Rate 72 09/17/18 10:51 Respiratory Rate 22 09/17/18 10:51 Blood Pressure 99/70 09/17/18 10:51 O2 Sat by Pulse Oximetry 97 09/17/18 10:51 Temperature 98.4 F 09/17/18 10:51 Pulse Rate 80 09/17/18 12:51 Respiratory Rate 22 09/17/18 12:51 Blood Pressure 108/71 09/17/18 12:51 O2 Sat by Pulse Oximetry 96 09/17/18 12:51 Oxygen Delivery Oxygen Delivery Room Air Medical Decision Making - MDM Narrative Medical decision making narrative: The patient is elderly and appears to have acute kidney injury. She is arousable emergency department and demonstrates no localizing neurologic defects. Multiple laboratory abnormalities are noted including decreased GFR, elevated calcium levels, anemia, and an elevated troponin. The patient does not describe chest pain. EKG shows no acute ST changes. Aspirin was ordered as well as IV fluids. Based on the patient's apparent dehydration, acute kidney injury, hypercalcemia, and elevated troponin with noted confusion, I thought it would be appropriate to admit the patient to the hospital. I discussed the case with the hospitalist on-call who has accepted the patient to their care. The hospitalist asked me to notify the crew team member on-call Dr. Hill, I spoke with Dr. Gusman who will act as direct response consultant. - Lab Data Lab results reviewed: Yes I reviewed the patient's lab results. Result diagrams: 09/17/18 11:58 09/17/18 11:58 Lab Results 09/17/18 09/17/18 09/17/18 Range/Units 11:45 11:58 11:58 WBC 6.9 (4.3-11.1) K/mcL RBC 3.63 L (3.82-4.97) M/mcL Hgb 10.9 L (11.5-15.4) g/dL Hct 35.9 (35.3-44.9) % MCV 98.9 (83.0-100.0) fL MCH 30.0 (28.0-33.3) pg MCHC 30.4 L (31.6-35.5) g/dL RDW 16.5 H (11.5-14.5) % Plt Count 102 L (140-400) K/mcL MPV 13.3 H (9.4-12.4) fL Immature Gran % 2.5 (0-4) % Seg Neutrophils % 65.8 % Lymphocytes % 21.2 % Monocytes % 9.1 % Eosinophils % 1.0 % Basophils % 0.4 % Neutrophils # 4.5 (1.6-8.9) K/mcL Lymphocytes # 1.5 (0.6-4.6) K/mcL Monocytes # 0.6 (0.0-1.3) K/mcL Eosinophils # 0.1 (0.0-0.6) K/mcL Basophils # 0.0 (0.0-0.2) K/mcL Sodium (136-145) mEq/L Potassium (3.5-5.1) mEq/L Chloride (98-107) mEq/L Carbon Dioxide (23-29) mEq/L BUN (8-23) mg/dL Creatinine (0.60-1.20) mg/dL Est GFR ( Amer) (> 60) Est GFR (Non-Af Amer) (> 60) BUN/Creatinine Ratio (6-26) Glucose (70-105) mg/dL Calculated Osmolality (280-300) Lactic Acid 1.5 (0.5-2.2) mmol/L Calcium (8.6-10.3) mg/dL Total Bilirubin (0.3-1.0) mg/dL AST (13-39) Units/L ALT (7-52) Units/L Alkaline Phosphatase (34-104) Units/L Troponin I (< 0.04) ng/mL C-Reactive Protein (Less than 10) mg/L B-Natriuretic Peptide (Less than 100) pg/mL Serum Total Protein (6.4-8.9) g/dL Albumin (3.5-5.7) g/dL Globulin (2.4-3.5) g/dL Albumin/Globulin Ratio (1.1-2.2) Urine Color Yellow (Yellow) Urine Clarity Clear (Clear) Urine pH 7.0 (5.0-8.0) pH Units Ur Specific [place] 1.011 (1.010-1.025) Urine Protein Trace (Neg-Trace) mg/dL Urine Glucose (UA) Normal (Normal) mg/dL Urine Ketones Negative (Negative) mg/dL Urine Blood Negative (Negative) Urine Nitrite Negative (Negative) Urine Bilirubin Negative (Negative) Urine Urobilinogen Normal (Normal) mg/dL Ur Leukocyte Esterase Trace H (Negative) Urine Microscopic RBC 0-3 (0-3) per hpf Urine Microscopic WBC 3-5 H (0-3) per hpf Ur Squamous Epith Cells Many H (None-Few) per lpf Urine Bacteria None Seen (None-Few) per hpf Hyaline Casts None Seen (None-Few) per lpf Ur Culture Indicated? NO. A (NO) 09/17/18 09/17/18 09/17/18 Range/Units 11:58 11:58 11:58 WBC (4.3-11.1) K/mcL RBC (3.82-4.97) M/mcL Hgb (11.5-15.4) g/dL Hct (35.3-44.9) % MCV (83.0-100.0) fL MCH (28.0-33.3) pg MCHC (31.6-35.5) g/dL RDW (11.5-14.5) % Plt Count (140-400) K/mcL MPV (9.4-12.4) fL Immature Gran % (0-4) % Seg Neutrophils % % Lymphocytes % % Monocytes % % Eosinophils % % Basophils % % Neutrophils # (1.6-8.9) K/mcL Lymphocytes # (0.6-4.6) K/mcL Monocytes # (0.0-1.3) K/mcL Eosinophils # (0.0-0.6) K/mcL Basophils # (0.0-0.2) K/mcL Sodium 139 (136-145) mEq/L Potassium 5.1 (3.5-5.1) mEq/L Chloride 102 (98-107) mEq/L Carbon Dioxide 31 H (23-29) mEq/L BUN 74 H (8-23) mg/dL Creatinine 2.55 H (0.60-1.20) mg/dL Est GFR ( Amer) 22 L (> 60) Est GFR (Non-Af Amer) 18 L (> 60) BUN/Creatinine Ratio 29 H (6-26) Glucose 111 H (70-105) mg/dL Calculated Osmolality 311 H (280-300) Lactic Acid (0.5-2.2) mmol/L Calcium 15.5 H* (8.6-10.3) mg/dL Total Bilirubin 0.6 (0.3-1.0) mg/dL AST 20 (13-39) Units/L ALT 3 L (7-52) Units/L Alkaline Phosphatase 62 (34-104) Units/L Troponin I 0.04 H* (< 0.04) ng/mL C-Reactive Protein 24 H (Less than 10) mg/L B-Natriuretic Peptide 817 H (Less than 100) pg/mL Serum Total Protein 7.1 (6.4-8.9) g/dL Albumin 3.6 (3.5-5.7) g/dL Globulin 3.5 (2.4-3.5) g/dL Albumin/Globulin Ratio 1.0 L (1.1-2.2) Urine Color (Yellow) Urine Clarity (Clear) Urine pH (5.0-8.0) pH Units Ur Specific [place] (1.010-1.025) Urine Protein (Neg-Trace) mg/dL Urine Glucose (UA) (Normal) mg/dL Urine Ketones (Negative) mg/dL Urine Blood (Negative) Urine Nitrite (Negative) Urine Bilirubin (Negative) Urine Urobilinogen (Normal) mg/dL Ur Leukocyte Esterase (Negative) Urine Microscopic RBC (0-3) per hpf Urine Microscopic WBC (0-3) per hpf Ur Squamous Epith Cells (None-Few) per lpf Urine Bacteria (None-Few) per hpf Hyaline Casts (None-Few) per lpf Ur Culture Indicated? (NO) - Radiology Data Radiology results reviewed: Yes I reviewed the patient's radiology results.
[2018-09-17 12:03] LABS: Bilirubin,Urine Negative (Negative); Blood,Urine Negative (Negative); Clarity,Urine Clear (Clear); Color,Urine Yellow (Yellow); Glucose,Urine (UA) Normal (Normal); Ketones,Urine Negative (Negative); Leukocyte Esterase,Urine Trace (Negative); Nitrite,Urine Negative (Negative); Protein,Urine Trace mg/dL (Neg-Trace); Specific Gravity,Urine 1.011 (1.010-1.025); Urobilinogen,Urine Normal (Normal)
[2018-09-17 12:05] LABS: Bacteria,Urine None Seen per hpf (None-Few); Hyaline Casts,Urine None Seen per lpf (None-Few); RBC,Urine 0-3 per hpf (0-3); Squamous Epithelial Cell,Urine Many per lpf (None-Few)
[2018-09-17 12:18] LABS: Basophils % 0.4 %; Eosinophils # 0.1 K/mcL (0.0-0.6); Hematocrit 35.9 % (35.3-44.9); Hemoglobin 10.9 g/dL (11.5-15.4); Immature Granulocytes % 2.5 % (0-4); Lymphocytes # 1.5 K/mcL (0.6-4.6); Lymphocytes % 21.2 %; Mean Corpuscular HGB Conc 30.4 g/dL (31.6-35.5); Mean Corpuscular Volume 98.9 fL (83.0-100.0); Mean Platelet Volume 13.3 fL (9.4-12.4); Monocytes # 0.6 K/mcL (0.0-1.3); Monocytes % 9.1 %; Neutrophils # 4.5 K/mcL (1.6-8.9); Platelet Count 102 K/mcL (140-400); Red Blood Count 3.63 M/mcL (3.82-4.97); Red Cell Distribution Width 16.5 % (11.5-14.5); Segmented Neutrophils % 65.8 %
[2018-09-17 12:48] LABS: Albumin 3.6 g/dL (3.5-5.7); Bilirubin,Total 0.6 mg/dL (0.3-1.0); Calcium 15.5 mg/dL (8.6-10.3); Globulin 3.5 g/dL (2.4-3.5); Potassium 5.1 mEq/L (3.5-5.1); Total Protein 7.1 g/dL (6.4-8.9); Troponin I 0.04 ng/mL (< 0.04)
[2018-09-17] MEDS ORDERED: 0.9 % Sodium Chloride 1,000 ML IVC ONE ×2 (13:22→14:45)
[2018-09-17] MEDS ORDERED: Aspirin 325 MG TABLET PO ONE (13:22)
[2018-09-17] MEDS ORDERED: Naloxone 0.4 MG/ML INJ IVP PRN (15:28)
[2018-09-17] MEDS ORDERED: Furosemide 40 MG/4 ML VIAL IVP ONE (15:28)
[2018-09-17] MEDS ORDERED: Ondansetron 4 MG/2 ML VIAL IVP PRN (15:28)
--- NOTE | 2018-09-17 15:28 | Internal Med History&Physical ---
<Michael Farmer - Last Filed: 09/17/18 17:41> Date of Encounter: 09/17/18 Time of Encounter: 15:27 Internal Medicine - H&P: HPI Chief complaint: Altered mental status Admitted From: Emergency Dept Plans for Post Hospital Care: [facility] History of present illness: Ms. Griffin is a 83 year old female with past medical history of celiac disease, urgent continence, COPD, dementia, osteoporosis, recurrent UTIs, hypoparathyroidism, atrial fibrillation, thrombocytopenia among others. She presented to the emergency room from group home facility with complaint of altered mental status. Patient is altered at time of interview and unable to provide history. Son and [id number] are present at bedside who provided history in addition to chart review. Family states that patient has become increasingly altered and the past 3 days. She was noted to become decreasingly alert and quiet. At baseline, she is able to walk, talk and is very conversational. Patient continued to decline over the past 3 days and was noted to put napkins in her cereal bowl this morning. Patient has not been complaining of any symptoms of fevers, chills, nausea, vomiting, chest pain, s hortness of breath over the last few days. She denies any sick contacts but family states that the nursing aides have been wearing masks recently. Daughter states that the patient frequently does become altered and almost every time it is secondary to urinary tract infection. Of note, she was recently admitted to this facility in August 2018 for urinary tract infection. At that time, she did receive antimicrobials and was discharged home on Cipro for a total of a 10 day course. She was also noted to have a right ureteral stone which she did not undergo lithotripsy with [facility]. Family reports that they were two residual stones left in the right kidney. Family also states that she did receive a right ureteral stent at that time which was just removed last week. Notably at that visit she also had her Synthroid dose mildly increased from elevated TSH. Family states that she did return to SNF at her baseline. Upon presentation to the emergency room, vital signs were significant for blood pressure of 99/70 which did improve to 108/71. She was tolerating 96% oxygen on room air. Laboratory results were obtained and showed evidence of metabolic alkalosis with a bicarbonate of 31 and acute kidney injury with a BUN/creatinine of 74/2.55. Calcium was also noted to be elevated at 15.5. Troponin within normal limits 0.04. EKG shows atrial fibrillation with no acute changes suggestive of ischemia. Chest x-ray shows mild pulmonary vascular congestion. Head CT was performed and negative for acute process. I did discuss previous laboratory results with the patient's family. Per chart review, she does have a history of chronic fluctuating calcium level since 2014. Patient did undergo a thyroidectomy with subsequent parathyroidectomy long ago. Patient's family states that her calcium levels have been elevated in the past but believes that they are due to UTIs. Per outpatient chart review, admission in 2015 for UTI did show evidence of elevated calcium in the 13-14s and her supplemental calcium dose has been adjusted multiple times in the past couple years. Family also reports that they recently had a very cm discussion with patient's PCP and they were told that patient has been declining over the past couple months. I also did discuss CODE STATUS with the family and patient is previously stated to the family that she would desire full CODE STATUS. Past medical history as above Past surgical history includes thyroidectomy Social history: Denies alcohol, drug use, tobacco use Family history: Son with thyroid cancer Past Med Surg Social Fam HX - Past Medical History Medical history: atrial fibrillation, COPD, dementia, GERD, hypertension, osteoporosis, thyroid disease, venous stasis, other Additional medical history: Parkinson's, UTI, FTT Psychiatric history: anxiety, depression - Past Surgical History Surgical History: no surgical history, thyroidectomy Additional surgical history: codi leg surgery for varicose veins - Social History Smoking Status: Never smoker Smokeless Tobacco Status: No Alcohol use: none Drug use: none - Family History Father Living Status: Hx Family Cardiac Disorders: Yes Mother Living Status: Hx Family Cardiac Disorders: Yes Internal Medicine - H&P: Meds Acetaminophen [Tylenol] 650 mg PO Q6HR PRN 09/14/15 [History] Budesonide/Formoterol 160/4.5 [Symbicort 160/4.5] 2 puff IH BIDR 09/14/15 [History] Docusate [Colace] 100 mg PO BID 09/14/15 [History] Folic Acid 1 mg PO DAILY 09/14/15 [History] Magnesium Oxide [Magnesium] 400 mg PO DAILY 09/14/15 [History] Memantine HCl [Namenda Xr] 28 mg PO DAILY 09/14/15 [History] Omeprazole [PriLOSEC] 20 mg PO DAILY 09/14/15 [History] Azelastine 0.1% Nasal [place] [Astelin] 2 spr NS BID 05/19/17 [History] Carbidopa/Levodopa ER 50/200 [Sinemet ER 50-200 Tab] 1 tab PO BID 05/19/17 [History] Lactobacillus Acidophilus [Acidophilus] 1 cap PO BID 05/19/17 [History] Magnesium Hydroxide [Milk of Magnesia] 30 ml PO DAILY PRN 05/19/17 [History] Quetiapine Fumarate [Seroquel] 12.5 mg PO HS 02/28/18 [History] Bisacodyl [Dulcolax] 10 mg RC DAILY PRN #30 supp.rect 04/04/18 [Rx] Megestrol Acetate [Megace] 800 mg PO DAILY #30 bottle 04/04/18 [Rx] Mirtazapine 7.5 mg PO HS 04/25/18 [History] Paroxetine HCl [Paxil] 20 mg PO DAILY 04/25/18 [History] Albuterol Sulfate [Ventolin Hfa] 2 puff IH Q4HR PRN #0 04/27/18 [Rx] Calcitriol [Rocaltrol] 0.25 mcg PO DAILY 06/04/18 [History] Calcium Carbonate/Vitamin D3 [Calcium 600-Vit D3 400 Tablet] 1 tab PO DAILY 06/04/18 [History] Ferrous Sulfate [Iron] 325 mg PO DAILY 07/15/18 [History] Metoprolol [Lopressor] 50 mg PO BID #60 tablet 07/22/18 [Rx] Calcitriol 1 mcg PO DAILY 08/26/18 [History] Levothyroxine [Synthroid] 175 mcg PO DAILY 30 Days #30 tablet 08/30/18 [Rx] Allergy/AdvReac Type Severity Reaction Status Date / Time Amoxicillin Allergy unknown Verified 08/26/18 13:14 atropine Allergy unknown Verified 08/26/18 13:14 codeine Allergy See Verified 08/26/18 13:14 Comments Diphenoxylate Allergy unknown Verified 08/26/18 13:14 enalapril Allergy unknown Verified 08/26/18 13:14 esomeprazole Allergy Unknown Verified 08/26/18 13:14 gluten Allergy Diarrhea Verified 08/26/18 13:14 hydromorphone [Hydromorphone] Allergy unknown Verified 08/26/18 13:14 Iodinated Contrast- Oral and Allergy unknown Verified 08/26/18 13:14 IV Dye [Iodinated Contrast Media - IV Dye] nitrofurantoin Allergy unknown Verified 08/26/18 13:14 Penicillins Allergy unkown Verified 08/26/18 13:14 piroxicam Allergy unknown Verified 08/26/18 13:14 Sulfa (Sulfonamide Allergy unknown Verified 08/26/18 13:14 Antibiotics) ROS unobtainable: due to mental status All Systems PM: A 10-system review of systems was performed and is negative for pertinent findings except as documented above in the HPI. - Constitutional Vitals: Temp Pulse Resp BP Pulse Ox 98.4 F 80 22 108/71 96 09/17/18 10:51 09/17/18 12:51 09/17/18 12:51 09/17/18 12:51 09/17/18 12:51 Exam: Gen.: Vitals noted. No acute distress. AAOx1, resting comfortably in bed. Responsive to tactile stimuli or repetitive verbal stimuli. Is able to speak in short sentences which are not always appropriate. HEENT: PERRL/EOMI, oropharynx clear, Normocephalic, atraumatic, mildly dry mucous membranes. Sunken eyes Neck: Supple. No adenopathy. Absence of thyroid, previous thyroidectomy scar Cardiac: Irregularly irregular rhythm, no murmur, +S1/S2, No BLE edema Pulmonary: Some mild Rales more prominent on the left. equal chest expansion, unlabored breathing Abdomen: soft, nontender, BS hypoactive, no guarding, no palpable HSM Skin: warm and dry, no visible lesions. MSK: ROM not assessed, no joint swelling noted, gait no assessed while in bed. Neuro: A&Ox1, exam is limited secondary to mental status. She does respond however does not adequately follow commands. She does attempt to move her extremities when asked however not enough to evaluate. Psych: Unable to assess secondary to mental status Internal Med - H&P Results - Labs CBC & Chem 7: 09/17/18 11:58 09/17/18 11:58 Labs: Short CBC 09/17/18 Range/Units 11:58 WBC 6.9 (4.3-11.1) K/mcL Hgb 10.9 L (11.5-15.4) g/dL Hct 35.9 (35.3-44.9) % Plt Count 102 L (140-400) K/mcL Neutrophils # 4.5 (1.6-8.9) K/mcL BMP 09/17/18 11:58 Sodium 139 Potassium 5.1 Chloride 102 Carbon Dioxide 31 H BUN 74 H Creatinine 2.55 H Glucose 111 H Calcium 15.5 H* Cardiac Enzymes 09/17/18 Range/Units 11:58 Troponin I 0.04 H* (< 0.04) ng/mL Liver Function 09/17/18 Range/Units 11:58 Total Bilirubin 0.6 (0.3-1.0) mg/dL AST 20 (13-39) Units/L ALT 3 L (7-52) Units/L Alkaline Phosphatase 62 (34-104) Units/L Albumin 3.6 (3.5-5.7) g/dL Urine 09/17/18 Range/Units 11:45 Urine Color Yellow (Yellow) Urine Clarity Clear (Clear) Urine pH 7.0 (5.0-8.0) pH Units Ur Specific [place] 1.011 (1.010-1.025) Urine Protein Trace (Neg-Trace) mg/dL Urine Glucose (UA) Normal (Normal) mg/dL - Impressions ITS Impressions Chest X-Ray 09/17/18 10:54 IMPRESSION: 1. Increased interstitial lung markings, likely related to pulmonary vascular congestion. 2. Small left pleural effusion with associated left basilar atelectasis, unchanged. 3. No new lung infiltrate. D/ / 09/17/2018 11:22:49 Crist[facility] Rojas MD / [facility] Interpreting Provider: Cristopher Rojas MD Head CT 09/17/18 10:54 IMPRESSION: 1. No acute intracranial abnormality. 2. Cerebral and cerebellar parenchymal volume loss with chronic microvascular white matter ischemic disease. 3. Thickened secretions in the sphenoid sinuses, correlate with signs of acute sinusitis. 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 Echo reviewed, indeterminate diastolic dysfunction, EF 60%, however CXR shows possible pulmonary vascular congestion. 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 No evidence of casts Plan - Will provide fluids as above - Retroperitoneal US - Nuñez catheter, strict ins and outs - Continue to monitor - Renal protective strategy and dose adjustments (4) Metabolic encephalopathy Current Visit: Yes Status: Acute Assessment and plan: - Suspect secondary to hypercalcemia as above - Also some suspicion for dehydration - Low suspicion for infectious process at this time. - Will continue to treat as elsewhere and monitor for signs of improvement (5) Atrial fibrillation Current Visit: Yes Status: Chronic Assessment and plan: - Chronic atrial fibrillation not on anticoagulation at home - Rate controlled at this time with most recent rate at 72 - Suspected anticoagulation has been held secondary to falls. No home m edications of antiplatelets however they have not yet been reconciled - We will continue home beta dong -- Patient was noted to be tachycardic upon presentation to medical floor. We will reassess after fluid administration. Also noted to be receiving Nuñez catheter at that time. Qualifiers: Atrial fibrillation type: chronic Qualified Code(s): I48.2 - Chronic atrial fibrillation (6) Constipation Current Visit: Yes Status: Acute Assessment and plan: - Acute on chronic in nature per chart review - Patient is on multiple constant spitting agents including hypercalcemia, iron supplementation - Patient also noted to have home stool softeners and laxatives, will continue - We will treat underlying hypercalcemia as above Qualifiers: Constipation type: other constipation type Qualified Code(s): K59.09 - Other constipation (7) Parkinson disease Current Visit: Yes Status: Chronic Assessment and plan: - As noted in dementia - Patient on carbidopa, levodopa at home - We will continue once able to take by mouth medications (8) Dehydration Current Visit: Yes Status: Acute Assessment and plan: Based on physical examination although family states that she has been eating and drinking well possibly contribute into acute kidney injury We will hydrate as above for hypercalcemia and continue to monitor (9) Frail elderly Current Visit: Yes Status: Chronic Assessment and plan: - We will consult palliative care - Fall precautions (10) Anemia Current Visit: Yes Status: Chronic Assessment and plan: - Patient may become presentation with hemoglobin of 10.9 - This does appear to be at patient's baseline level - Etiology is likely multifactorial including chronic disease, CKD, inadequate dietary intake - We will continue to monitor and transfuse as necessary - We will hold supplemental iron at this time even patient's complaint of constipation Qualifiers: Anemia type: other cause Other causes of anemia: chronic disease, other Qualified Code(s): D63.8 - Anemia in other chronic diseases classified elsewhere (11) Dementia Current Visit: Yes Status: Chronic Assessment and plan: - Patient altered at home by examination and is reportedly not at baseline per family - Patient does have a known history of dementia with additional Parkinson's disease - We will continue home medications - We will hold Megace while patient does not have a diet Qualifiers: Dementia type: Parkinson's disease Dementia behavioral disturbance: without behavioral disturbance Qualified Code(s): G20 - Parkinson's disease; F02.80 - Dementia in other diseases classified elsewhere without behavioral disturbance (12) Thrombocytopenia Current Visit: Yes Status: Chronic Assessment and plan: - 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 per chart review - Platelets stable at 102, will continue monitor - No signs of bleed, no indications for transfusion at this time (13) Hypothyroidism Current Visit: Yes Status: Chronic Assessment and plan: - Secondary to thyroidectomy - 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 - Timeline unclear and unsure if patient has any residual PTH function - Will obtain TSH, PTH Qualifiers: Hypothyroidism type: postoperative Qualified Code(s): E89.0 - Postprocedural hypothyroidism (14) Hypoparathyroidism Current Visit: Yes Status: Chronic Assessment and plan: As above, secondary to thyroidectomy Qualifiers: Hypoparathyroidism type: other hypoparathyroidism Qualified Code(s): E20.8 - Other hypoparathyroidism (15) Metabolic alkalosis Current Visit: Yes Status: Acute Assessment and plan: bicarb of 31 - Likely secondary to dehydration vs milk alkali as above (16) Elevated troponin Current Visit: Yes Status: Acute Assessment and plan: - Trop of 0.04 - Likely demand due to dehydration and hypercalcemia - Will trend (17) DVT prophylaxis Current Visit: Yes Status: Acute Assessment and plan: Subcutaneous heparin - Time Spent With Patient Total time spent is greater than 50% in coordination of care (as documented) at patient's floor/unit and/or counseling patient: <Dar Christian Rola - Last Filed: 09/17/18 19:34> Date of Encounter: 09/17/18 Internal Medicine - H&P: HPI History of present illness: Ms. Griffin is a 83 year old female All Systems PM: A 10-system review of systems was performed and is negative for pertinent findings except as documented above in the HPI. - Constitutional Vitals: Temp Pulse Resp BP Pulse Ox 97.0 F L 79 79 130/70 94 09/17/18 18:20 09/17/18 18:20 09/17/18 18:20 09/17/18 18:20 09/17/18 18:20 Internal Med - H&P Results - Labs CBC & Chem 7: 09/17/18 11:58 09/17/18 11:58 Labs: Short CBC 09/17/18 Range/Units 11:58 WBC 6.9 (4.3-11.1) K/mcL Hgb 10.9 L (11.5-15.4) g/dL Hct 35.9 (35.3-44.9) % Plt Count 102 L (140-400) K/mcL Neutrophils # 4.5 (1.6-8.9) K/mcL BMP 09/17/18 11:58 Sodium 139 Potassium 5.1 Chloride 102 Carbon Dioxide 31 H BUN 74 H Creatinine 2.55 H Glucose 111 H Calcium 15.5 H* Cardiac Enzymes 09/17/18 Range/Units 11:58 Troponin I 0.04 H* (< 0.04) ng/mL Liver Function 09/17/18 Range/Units 11:58 Total Bilirubin 0.6 (0.3-1.0) mg/dL AST 20 (13-39) Units/L ALT 3 L (7-52) Units/L Alkaline Phosphatase 62 (34-104) Units/L Albumin 3.6 (3.5-5.7) g/dL Urine 09/17/18 Range/Units 11:45 Urine Color Yellow (Yellow) Urine Clarity Clear (Clear) Urine pH 7.0 (5.0-8.0) pH Units Ur Specific [place] 1.011 (1.010-1.025) Urine Protein Trace (Neg-Trace) mg/dL Urine Glucose (UA) Normal (Normal) mg/dL - Impressions ITS Impressions Chest X-Ray 09/17/18 10:54 IMPRESSION: 1. Increased interstitial lung markings, likely related to pulmonary vascular congestion. 2. Small left pleural effusion with associated left basilar atelectasis, unchanged. 3. No new lung infiltrate. D/ / 09/17/2018 11:22:49 Cristopher Rojas MD / [facility] Interpreting Provider: Cristopher Rojas MD Head CT 09/17/18 10:54 IMPRESSION: 1. No acute intracranial abnormality. 2. Cerebral and cerebellar parenchymal volume loss with chronic microvascular white matter ischemic disease. 3. Thickened secretions in the sphenoid sinuses, correlate with signs of acute sinusitis. D/ / 09/17/2018 12:08:02 Cristopher Rojas MD / [facility] Interpreting Provider: Cristopher Rojas MD - Assessment and plan (1) Acute metabolic encephalopathy Current Visit: Yes Status: Acute (2) Hypercalcemia Current Visit: Yes Status: Acute (3) ANISA (acute kidney injury) Current Visit: Yes Status: Acute (4) Constipation Current Visit: Yes Status: Acute Qualifiers: Constipation type: other constipation type Qualified Code(s): K59.09 - Other constipation (5) Atrial fibrillation Current Visit: Yes Status: Chronic Qualifiers: Atrial fibrillation type: chronic Qualified Code(s): I48.2 - Chronic atrial fibrillation (6) Hypothyroidism Current Visit: Yes Status: Chronic Qualifiers: Hypothyroidism type: postoperative Qualified Code(s): E89.0 - Postprocedural hypothyroidism (7) Parkinson disease Current Visit: Yes Status: Chronic - Time Spent With Patient Total time spent is greater than 50% in coordination of care (as documented) at patient's floor/unit and/or counseling patient: - Attending Attestation I examined this patient and my medical decision-making was reviewed with the Resident Physician on 09/17/18. I agree with the documented findings, disposition and treatment plan as described except to the extent set forth below. Ms Griffin is 83 y/o female brought to ED with confusion. She was evaluated and found to have hypercalcemia. She is being admitted for further treatment. She is unable to give us any further information at this time. Exam alert but does not respond to me Mucus membranes dry Heart irreg and tachy No wheeze Abd soft No edema Normocephalic Pulses palpable. I/P 1. Acute encephalopathy - multifactorial. Hydrate. 2. Dehydration - IV fluids. 3. Hypercalcemia - Will hydrate tonight. Renal consult. 4. ANISA - check ultrasound. Further diagnoses and plan as above.
[2018-09-17] MEDS ORDERED: Bisacodyl 10 MG RECTAL SUPPOSITORY RC PRN (17:32)
[2018-09-17] MEDS ORDERED: 0.9 % Sodium Chloride 1,000 ML IVC SCH (17:45)
[2018-09-17] MEDS: *HR* Heparin 5,000 UNIT/ML VIAL SQ SCH (18:34)
[2018-09-17] MEDS: Budesonide/Formoterol 160/4.5 1 PUFF INH IH SCH (23:01)
[2018-09-18 00:53] LABS: Basophils % 0.4 %; Hemoglobin 9.8 g/dL (11.5-15.4)
[2018-09-18 00:55] LABS: Eosinophils # 0.1 K/mcL (0.0-0.6); Eosinophils % 1.6 %; Hematocrit 31.4 % (35.3-44.9); Immature Granulocytes % 2.8 % (0-4); Lymphocytes % 19.4 %; Mean Corpuscular HGB Conc 31.2 g/dL (31.6-35.5); Mean Corpuscular Hemoglobin 30.8 pg (28.0-33.3); Mean Corpuscular Volume 98.7 fL (83.0-100.0); Mean Platelet Volume 13.2 fL (9.4-12.4); Monocytes # 0.3 K/mcL (0.0-1.3); Monocytes % 6.9 %; Neutrophils # 3.4 K/mcL (1.6-8.9); Platelet Count 102 K/mcL (140-400); Red Blood Count 3.18 M/mcL (3.82-4.97); Red Cell Distribution Width 16.4 % (11.5-14.5); Segmented Neutrophils % 68.9 %
[2018-09-18 01:06] LABS: Calcium 13.9 mg/dL (8.6-10.3); Magnesium 1.9 mg/dL (1.6-2.6); Phosphorous 5.9 mg/dL (2.7-4.5); Potassium 5.2 mEq/L (3.5-5.1)
[2018-09-18] MEDS: *HR* Heparin 5,000 UNIT/ML VIAL SQ SCH ×2 (05:25→17:38)
[2018-09-18] MEDS ORDERED: 0.9 % Sodium Chloride 500 ML IVC SCH (05:45)
[2018-09-18] MEDS: Budesonide/Formoterol 160/4.5 1 PUFF INH IH SCH ×2 (09:49→21:44)
[2018-09-18] MEDS ORDERED: MOM Conc 10 ML UD.LIQ PO PRN (09:51)
[2018-09-18] MEDS ORDERED: Acetaminophen 325 MG TABLET PO PRN (09:51)
--- NOTE | 2018-09-18 10:19 | Internal Med Progress Note ---
<Seth Rowe - Last Filed: 09/18/18 15:21> Hospitalist Progress Note - Encounter Date of Encounter: 09/18/18 Time of Encounter: 10:12 - Subjective Interval History: Patient is asleep upon entering room. Patient looks at me when I call her name but when I try to ask her questions she closes her eyes and chooses not to speak - Exam Vitals: Temp Pulse Resp BP Pulse Ox 97.9 F 78 16 132/85 94 09/18/18 06:45 09/18/18 06:45 09/18/18 09:50 09/18/18 06:45 09/18/18 09:50 Exam: Gen: NAD, AAOx1 lying comfortable in bed. Patient responds to verbal stimuli at times HEENT: Normocephalic, atraumatic, dry mucous membranes, sunken eyes, PERRLA, EOMI Neck: Supple. No cervical lymphadenopathy, previous thyroidectomy scar Cardiac: RRR, no murmur, S1 and S2 present, No pedaledema Pulmonary: CTA bilaterally, symmetric chest expansion, no rales, rhonchi, wheezing Abdomen: soft, nontender, non distended, hypoactive bowel sounds Skin: warm, dry, intact, no erythema. Neuro: A&Ox1, exam is limited secondary to mental status. 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 Echogenic foci in the left kidney are favored to represent a nonobstructing calculi. - Most likely etiology dehydration after U/S r/o obstruction - May be contributing to hypercalcemia as above - U/A in E.D does not show signs of infection or evidence of casts -Continue IVF -Nuñez in place and continue to monitor I & O's. -Nephrology following and appreciate recommendations. (4) Acute metabolic encephalopathy Current Visit: Yes Status: Acute Assessment and Plan: - Suspect secondary to hypercalcemia as above - 09/17/18 calcium of 15.5. 09/18/18 calcium of 13.9 - Also consider dehydration - Infectious process unlikely at this time. - Continue to treat as elsewhere and monitor for improvement (5) Atrial fibrillation Current Visit: Yes Status: Chronic Assessment and Plan: - Chronic atrial fibrillation not on anticoagulation at home - Rate controlled at this time with most recent rate at 72 on 09/18/18 at 10:31. - We will continue home beta dong -Not on anticoagulation therapy at home (6) Constipation Current Visit: Yes Status: Acute Assessment and Plan: -Treat underlying hypercalcemia as above -Continue home stool softeners and laxatives -Multiple know etiologies for constipation including hypercalcemia and iron supplementation. (7) Parkinson disease Current Visit: Yes Status: Chronic Assessment and Plan: -Continue home carbidopa, levodopa PO as long as patient can continue to tolerate (8) Dehydration Current Visit: Yes Status: Acute Assessment and Plan: Continue IVF (9) Frail elderly Current Visit: Yes Status: Chronic Assessment and Plan: -Continue fall precautions -Awaiting palliative consult (10) Anemia Current Visit: Yes Status: Chronic Assessment and Plan: Continue to monitor and transfuse if necessary Hold iron supplementation (11) Dementia Current Visit: Yes Status: Chronic Assessment and Plan: - Patient reportedly not at baseline per daughter in law and son - known history of dementia with additional Parkinson's disease, continue home meds - Hold Megace until patient has a diet (12) Hypothyroidism Current Visit: Yes Status: Chronic Assessment and Plan: - Secondary to thyroidectomy - 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 - No residual PTH function - 09/18/18 TSH, 9.603 -09/18/18 PTH, <1.0 L (13) Hypoparathyroidism Current Visit: Yes Status: Chronic Assessment and Plan: see above hypothyroidism (14) Thrombocytopenia Current Visit: Yes Status: Chronic Assessment and Plan: -Platelets stable at 102 on 09/17/18 and 09/18/18 -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 (16) DVT prophylaxis Current Visit: Yes Status: Acute Assessment and Plan: SubQ heparin - Time Spent with Patient Total time spent is greater than 50% in coordination of care (as documented) at patient's floor/unit and/or counseling patient: Internal Medicine: Result - Labs CBC & Chem 7: 09/18/18 00:18 09/18/18 00:18 Labs: Short CBC 09/17/18 09/18/18 Range/Units 11:58 00:18 WBC 6.9 4.9 (4.3-11.1) K/mcL Hgb 10.9 L 9.8 L (11.5-15.4) g/dL Hct 35.9 31.4 L (35.3-44.9) % Plt Count 102 L 102 L (140-400) K/mcL Neutrophils # 4.5 3.4 (1.6-8.9) K/mcL BMP 09/17/18 09/18/18 11:58 00:18 Sodium 139 140 Potassium 5.1 5.2 H Chloride 102 108 H Carbon Dioxide 31 H 26 BUN 74 H 76 H Creatinine 2.55 H 2.48 H Glucose 111 H 95 Calcium 15.5 H* 13.9 H* Cardiac Enzymes 09/17/18 09/17/18 09/18/18 Range/Units 11:58 18:32 00:18 Troponin I 0.04 H* 0.04 H* 0.03 (< 0.04) ng/mL Liver Function 09/17/18 Range/Units 11:58 Total Bilirubin 0.6 (0.3-1.0) mg/dL AST 20 (13-39) Units/L ALT 3 L (7-52) Units/L Alkaline Phosphatase 62 (34-104) Units/L Albumin 3.6 (3.5-5.7) g/dL Urine 09/17/18 Range/Units 11:45 Urine Color Yellow (Yellow) Urine Clarity Clear (Clear) Urine pH 7.0 (5.0-8.0) pH Units Ur Specific [place] 1.011 (1.010-1.025) Urine Protein Trace (Neg-Trace) mg/dL Urine Glucose (UA) Normal (Normal) mg/dL - Impressions Impressions Chest X-Ray 09/17/18 10:54 IMPRESSION: 1. Increased interstitial lung markings, likely related to pulmonary vascular congestion. 2. Small left pleural effusion with associated left basilar atelectasis, unchanged. 3. No new lung infiltrate. D/ / 09/17/2018 11:22:49 Cristopher Rojas MD / bann[place] Interpreting Provider: Cristopher Rojas MD Head CT 09/17/18 10:54 IMPRESSION: 1. No acute intracranial abnormality. 2. Cerebral and cerebellar parenchymal volume loss with chronic microvascular white matter ischemic disease. 3. Thickened secretions in the sphenoid sinuses, correlate with signs of acute sinusitis. D/ / 09/17/2018 12:08:02 Cristopher Rojas MD / angelia Interpreting Provider: Cristopher Rojas MD Retroperitoneum Ultrasound 09/17/18 20:30 IMPRESSION: No evidence of hydronephrosis. Echogenic foci in the left kidney are favored to represent a nonobstructing calculi. D/ / Seth Gonzalez MD / Seth Gonzalez MD Interpreting Provider: Seth Gonzalez MD Consult Discharge Plan - Plan Referrals: Braden Garibay MD [Primary Care Provider] - <Francheska Peters - Last Filed: 09/18/18 16:03> Hospitalist Progress Note - Encounter Date of Encounter: 09/18/18 - Exam Vitals: Temp Pulse Resp BP Pulse Ox 98.1 F 67 15 134/84 93 09/18/18 14:45 09/18/18 14:45 09/18/18 14:45 09/18/18 14:45 09/18/18 14:45 - Assessment and Plan (1) Hypothyroidism Current Visit: Yes Status: Chronic (2) Atrial fibrillation Current Visit: Yes Status: Chronic (3) Constipation Current Visit: Yes Status: Acute (4) Parkinson disease Current Visit: Yes Status: Chronic (5) ANISA (acute kidney injury) Current Visit: Yes Status: Acute (6) Hypercalcemia Current Visit: Yes Status: Acute (7) Acute metabolic encephalopathy Current Visit: Yes Status: Acute - Time Spent with Patient Total time spent is greater than 50% in coordination of care (as documented) at patient's floor/unit and/or counseling patient: Internal Medicine: Result - Labs CBC & Chem 7: 09/18/18 00:18 09/18/18 00:18 Labs: Short CBC 09/18/18 Range/Units 00:18 WBC 4.9 (4.3-11.1) K/mcL Hgb 9.8 L (11.5-15.4) g/dL Hct 31.4 L (35.3-44.9) % Plt Count 102 L (140-400) K/mcL Neutrophils # 3.4 (1.6-8.9) K/mcL BMP 09/18/18 00:18 Sodium 140 Potassium 5.2 H Chloride 108 H Carbon Dioxide 26 BUN 76 H Creatinine 2.48 H Glucose 95 Calcium 13.9 H* Cardiac Enzymes 09/17/18 09/18/18 Range/Units 18:32 00:18 Troponin I 0.04 H* 0.03 (< 0.04) ng/mL Urine 09/18/18 Range/Units 11:08 Urine Color Yellow (Yellow) Urine Clarity Cloudy A (Clear) Urine pH 7.0 (5.0-8.0) pH Units Ur Specific [place] 1.011 (1.010-1.025) Urine Protein 30 H (Neg-Trace) mg/dL Urine Glucose (UA) Normal (Normal) mg/dL - Impressions Impressions Retroperitoneum Ultrasound 09/17/18 20:30 IMPRESSION: No evidence of hydronephrosis. Echogenic foci in the left kidney are favored to represent a nonobstructing calculi. D/ / Seth Gonzalez MD / Seth Gonzalez MD Interpreting Provider: Seth Gonzalez MD - Attending Attestation The history, physical exam, and medical decision making was performed by medical student Jae either while I was physically present and actively involved or I personally re-performed the exam and medical decision making. I have verified the accuracy of the medical student's documentation with regards to the history, physical exam findings, and medical decision making. Ms Griffin is admitted with hypercalcemia with metabolic encephalopathy asleep, awakes to name and shaking shoulder. no family at bedside. She denies pain, sob, abd pain. She follows simple commands to stick out her tongue and squeeze my hands. She has no sponataneous speech and appears somnolent. She will open her eyes but then closes them again. further hpi and ros cannot be obtained given pt somnolence. 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 Acute encephalopathy - multifactorial likely related to hypercalcemia, dehydration, dementia, sedating home meds- No focal neuro deficits appreciated, does not appear to be CVA/TIA at this time, [place] in setting of known symptomatic hypercalcemia and ANISA on CKD CT head no acute findings (but possible sinusitis noted, pt cannot report sxs at this time), CXR without infiltrates, no wbc elevation or fever to suggest infectious etiology Does not appear to be ACS, trop mild elevation 0.04 down trend to normal without ischemic ekg changes -hypercalcemia tx as below, cont tele, neuro checks, hold home remeron 2. Dehydration - IV fluids. monitor for fluid overload, i/os 3. Hypercalcemia - cont iv hydration, nephro consulted and appreciate recs 4. ANISA on CKD- renal US reviewed, no hydronephrosis, avoid nephro toxins, will require outpt ephro fu once dc'd 5. Hyperkalemia- 5.2, cannot give ca gluconate in this setting, cont tele, s/p kayexalate, cont to monitor, nephro following 6. Elevated TSH in setting of hypothyroidism 2/2 thyroidectomy- recent outpt synthroid increase, tsh improved in last 3 weeks on chart review, no further adjustment as will see pcp for repeat testing of tsh once med change has had chance to take full effect in upcoming weeks 7. Chronic Afib, currently NSR- on NO AC at home, will not initiate here, cont home metoprolol Further diagnoses and plan as above. <Seth Rowe - Last Filed: 09/18/18 15:21> (5) Atrial fibrillation Qualifiers: Atrial fibrillation type: chronic Qualified Code(s): I48.2 - Chronic atrial fibrillation (6) Constipation Qualifiers: Constipation type: other constipation type Qualified Code(s): K59.09 - Other constipation (10) Anemia Qualifiers: Anemia type: other cause Other causes of anemia: chronic disease, other Qualified Code(s): D63.8 - Anemia in other chronic diseases classified elsewhere (11) Dementia Qualifiers: Dementia type: Parkinson's disease Dementia behavioral disturbance: without behavioral disturbance Qualified Code(s): G20 - Parkinson's disease; F02.80 - Dementia in other diseases classified elsewhere without behavioral disturbance (12) Hypothyroidism Qualifiers: Hypothyroidism type: postoperative Qualified Code(s): E89.0 - Postprocedural hypothyroidism (13) Hypoparathyroidism Qualifiers: Hypoparathyroidism type: other hypoparathyroidism Qualified Code(s): E20.8 - Other hypoparathyroidism <Francheska Peters - Last Filed: 09/18/18 16:03> (1) Hypothyroidism Qualifiers: Hypothyroidism type: postoperative Qualified Code(s): E89.0 - Postprocedural hypothyroidism (2) Atrial fibrillation Qualifiers: Atrial fibrillation type: chronic Qualified Code(s): I48.2 - Chronic atrial fibrillation (3) Constipation Qualifiers: Constipation type: other constipation type Qualified Code(s): K59.09 - Other constipation
--- NOTE | 2018-09-18 10:40 | Nephrology Consult Note ---
Addendum entered and electronically signed by Clovis Hill DO 09/18/18 20:10: I have personally performed a face to face evaluation on this patient. I have reviewed and agree with the care plan. History and Exam by me shows: 83-year-old female who was found to have hypercalcemia and ANISA. She hears very dehydrated, essentially volume depleted with hypercalcemia and hyperkalemia. Continue IV fluids and trending the serum calcium. She may need an IV bisphosphonate if IV fluids alone do not correct the hypercalcemia. No indications for dialysis at this time, but I will continue to closely follow with you. Thank you for consulting the [facility]. Original Note: Date of Encounter: 09/18/18 Time of Encounter: 10:34 Assessment and Plan (1) Acute kidney injury superimposed on CKD Current Visit: Yes Status: Acute Baseline appears to be chronic kidney disease stage III B. Per [facility] patient has not seen [facility]. Would recommend her to establish with Dr. Hill after discharge, unless she sees another taste tester. Avoid nephrotoxins and renal dose all medications. Strict I&O. Encourage by mouth intake if able. (2) Hypercalcemia Current Visit: Yes Status: Acute Initial calcium was 15.5, is now 13.9 with IV fluid. Continue IV fluid. Will consider adding IV biphosphonate if indicated. (3) Metabolic encephalopathy Current Visit: Yes Status: Acute Per primary. (4) Atrial fibrillation Current Visit: Yes Status: Chronic Per primary. Qualifiers: Qualified Code(s): I48.2 - Chronic atrial fibrillation (5) Dehydration, mild Current Visit: No Status: Acute Continue IV fluid. History of Present Illness - Reason for Consult Consult date: 09/18/18 Acute Kidney Injury, Chronic Kidney Disease Requesting physician: Francheska Peters - Chief Complaint AMS - History of Present Illness Ms. Griffin is an 83 year old female who resides in an ECF. She presented to ED with AMS. PMH: A. fib, COPD, dementia, GERD, hypertension. Appears per EMR baseline kidney function is high kidney disease stage III. Patient is unable to participate in interview at this time. She is a poor historian, most information was obtained from chart review. ANISA workup ordered. Retroperitoneal ultrasound arty completed and is negative. Left kidney noted to have non-obstructing calculi. Patient has never smoked, denies EtOH or illicit drug use per ER records. As mentioned above she does reside in an ECF. Past Med Surg Social Fam HX - Past Medical History Medical history: atrial fibrillation, COPD, dementia, GERD, hypertension, osteoporosis, thyroid disease, venous stasis, other Additional medical history: Parkinson's, UTI, FTT Psychiatric history: anxiety, depression - Past Surgical History Surgical History: no surgical history, thyroidectomy Additional surgical history: codi leg surgery for varicose veins - Social History Smoking Status: Never smoker Smokeless Tobacco Status: No Alcohol use: none Drug use: none - Family History Father Living Status: Hx Family Cardiac Disorders: Yes Mother Living Status: Hx Family Cardiac Disorders: Yes Medications and Allergies Acetaminophen [Tylenol] 650 mg PO Q6HR PRN 09/14/15 [History] Budesonide/Formoterol 160/4.5 [Symbicort 160/4.5] 2 puff IH BID 09/14/15 [History] Docusate [Colace] 100 mg PO BID 09/14/15 [History] Folic Acid 1 mg PO DAILY 09/14/15 [History] Magnesium Oxide [Magnesium] 400 mg PO DAILY 09/14/15 [History] Memantine HCl [Namenda Xr] 28 mg PO DAILY 09/14/15 [History] Omeprazole [PriLOSEC] 20 mg PO DAILY 09/14/15 [History] Azelastine 0.1% Nasal [place] [Astelin] 2 spr NS BID 05/19/17 [History] Carbidopa/Levodopa ER 50/200 [Sinemet ER 50-200 Tab] 1 tab PO BID 05/19/17 [History] Lactobacillus Acidophilus [Acidophilus] 1 cap PO BID 05/19/17 [History] Magnesium Hydroxide [Milk of Magnesia] 30 ml PO DAILY PRN 05/19/17 [History] Quetiapine Fumarate [Seroquel] 12.5 mg PO HS 02/28/18 [History] Bisacodyl [Dulcolax] 10 mg RC DAILY PRN #30 supp.rect 04/04/18 [Rx] Megestrol Acetate [Megace] 800 mg PO DAILY #30 bottle 04/04/18 [Rx] Mirtazapine 7.5 mg PO HS 04/25/18 [History] Paroxetine HCl [Paxil] 20 mg PO DAILY 04/25/18 [History] Albuterol Sulfate [Ventolin Hfa] 2 puff IH Q4HR PRN #0 04/27/18 [Rx] Calcium Carbonate/Vitamin D3 [Calcium 600-Vit D3 400 Tablet] 1 tab PO DAILY 06/04/18 [History] Ferrous Sulfate [Iron] 325 mg PO DAILY 07/15/18 [History] Metoprolol [Lopressor] 50 mg PO BID #60 tablet 07/22/18 [Rx] Levothyroxine [Synthroid] 175 mcg PO DAILY 30 Days #30 tablet 08/30/18 [Rx] Calcitriol 1 mcg PO DAILY 09/18/18 [History] Trimethoprim 100 mg PO HS 09/18/18 [History] Allergy/AdvReac Type Severity Reaction Status Date / Time Amoxicillin Allergy unknown Verified 08/26/18 13:14 atropine Allergy unknown Verified 08/26/18 13:14 codeine Allergy See Verified 08/26/18 13:14 Comments Diphenoxylate Allergy unknown Verified 08/26/18 13:14 enalapril Allergy unknown Verified 08/26/18 13:14 esomeprazole Allergy Unknown Verified 08/26/18 13:14 gluten Allergy Diarrhea Verified 08/26/18 13:14 hydromorphone [Hydromorphone] Allergy unknown Verified 08/26/18 13:14 Iodinated Contrast- Oral and Allergy unknown Verified 08/26/18 13:14 IV Dye [Iodinated Contrast Media - IV Dye] nitrofurantoin Allergy unknown Verified 08/26/18 13:14 Penicillins Allergy unkown Verified 08/26/18 13:14 piroxicam Allergy unknown Verified 08/26/18 13:14 Sulfa (Sulfonamide Allergy unknown Verified 08/26/18 13:14 Antibiotics) Review of Systems ROS unobtainable: due to mental status Exam - Vital Signs Vital signs: Initial Vital Signs Temp Pulse Resp BP Pulse Ox 98.4 F 72 22 99/70 97 09/17/18 10:51 09/17/18 10:51 09/17/18 10:51 09/17/18 10:51 09/17/18 10:51 Vital Signs - Last 8 Hours Temp Pulse Resp BP Pulse Ox 09/18/18 09:50 16 94 09/18/18 06:45 97.9 F 78 16 132/85 93 09/18/18 04:28 98.4 F 09/18/18 03:32 96.7 F L 70 17 128/75 95 Intake and Output 09/17/18 09/18/18 09/18/18 23:59 07:59 15:59 Intake Total 1000 / 1000 Output Total 200 / 200 Balance 800 / 800 Intake: IV Fluids 1000 / 1000 0.9 % Sodium Chloride 1,000 ML 1000 / 1000 @ 75 mls/hr IVC .[id number] Rx #:[id number] Output: Catheter 200 / 200 Other: Meal npo Percent of Meal Consumed 0% Weight 70.1 kg Blood Glucose* 97 Patient Weight 09/18/18 23:59 Weight 70.1 kg - General Appearance General appearance: fatigue, frail EENT: ATNC, hearing intact, vision intact Neck: supple Respiratory: clear Cardiology: no edema, normal S1, normal S2 Gastrointestinal: normoactive bowel sounds, no tenderness, no guarding Integumentary: no rash, warm and dry Neurologic: confused Musculoskeletal: no deformities, no erythema Psychiatric: mood/affect appropriate, cooperative Results - Lab Results 09/18/18 00:18 09/18/18 00:18 Most recent lab results Calcium 13.9 mg/dL (8.6-10.3) H* 09/18/18 00:18 Phosphorus 5.9 mg/dL (2.7-4.5) H 09/18/18 00:18 Magnesium 1.9 mg/dL (1.6-2.6) 09/18/18 00:18 Consult Discharge Plan - Plan Referrals: Braden Garibay MD [Primary Care Provider] -
[2018-09-18 11:00] LABS: Uric Acid 7.4 mg/dL (2.3-7.6)
[2018-09-18 11:19] LABS: Bilirubin,Urine Negative (Negative); Blood,Urine Moderate (Negative); Clarity,Urine Cloudy (Clear); Color,Urine Yellow (Yellow); Glucose,Urine (UA) Normal (Normal); Ketones,Urine Negative (Negative); Leukocyte Esterase,Urine Moderate (Negative); Nitrite,Urine Negative (Negative); Protein,Urine 30 mg/dL (Neg-Trace); Specific Gravity,Urine 1.011 (1.010-1.025); Urobilinogen,Urine Normal (Normal)
[2018-09-18 11:21] LABS: Bacteria,Urine None Seen per hpf (None-Few); Hyaline Casts,Urine None Seen per lpf (None-Few); RBC,Urine 50-100 per hpf (0-3); Squamous Epithelial Cell,Urine Many per lpf (None-Few); WBC,Urine 30-50 per hpf (0-3)
[2018-09-18] MEDS: Magnesium Oxide 400 MG TABLET PO SCH (11:29)
[2018-09-18] MEDS: Folic Acid 1 MG TABLET PO SCH (11:29)
[2018-09-18] MEDS: Carbidopa/Levodopa ER 50/200 TABLET PO SCH ×2 (11:30→20:23)
--- NOTE | 2018-09-18 15:14 | Palliative - Consult Note ---
Date of Encounter: 09/18/18 Time of Encounter: 14:00 - Assessment and Plan (1) Atrial fibrillation Current Visit: Yes Status: Chronic Assessment and plan: Chronic history. Patient at baseline. Qualifiers: Atrial fibrillation type: chronic Qualified Code(s): I48.2 - Chronic atrial fibrillation (2) COPD (chronic obstructive pulmonary disease) Current Visit: No Status: Chronic Assessment and plan: Patient denies dyspnea. Oxygen saturation 92-94% on Room air. Qualifiers: COPD type: emphysema Emphysema type: unspecified Qualified Code(s): J43.9 - Emphysema, unspecified (3) Goals of care, counseling/discussion Current Visit: No Status: Acute Assessment and plan: Attempted to discuss goals of care with patient. Patient only answering yes/no questions. [place] should discuss situation and clinical update with patient's guardian. Called Lobo Griffin's phone number recorded in chart and patient's daughter in law Analia answered phone. Explained reason for call to arrange meeting for goals of care with patient and family. Analia reported her and Lobo took the time a few months back to discuss goals of care with Palliative care team and has since discussed further goals of care with patient's PCP Dr. Garibay. Per Analia, patient is not to have feeding tube placed, patient is eating well and feeding herself independently. Per Analia, Patient has been improving over the last few months. Analia explained already evaluated and planned goals of care with PCP. Upon discharge, plan is for patient to return to [facility] for continued care. Patient to remain FULL CODE. Analia reports she does not need meeting with Palliative care team, as the last meeting was not helpful. Palliative care team will sign off. No further needs identified at this time. Please re-consult as needed. Thank you for including our team in the care of your patient. (4) Hypercalcemia Current Visit: Yes Status: Acute Assessment and plan: Calcium has improved to 13.9; continue IVF per primary team. Nephrology consulted; recommendations appreciated. (5) Abnormal EKG Current Visit: Yes Status: Acute (6) Acute kidney injury superimposed on CKD Current Visit: Yes Status: Acute Assessment and plan: Patient CKD stage 3, recommend outpatient followup with Dr. Hill. (7) Dementia Current Visit: Yes Status: Chronic Assessment and plan: Baseline dementia stable. Family reports after illness, she will return to custodial at previous level of functioning. Qualifiers: Dementia type: Parkinson's disease Dementia behavioral disturbance: without behavioral disturbance Qualified Code(s): G20 - Parkinson's disease; F02.80 - Dementia in other diseases classified elsewhere without behavioral disturbance (8) Pain Current Visit: Yes Status: Acute Assessment and plan: Patient reports pain, unable to describe location or type. Patient has Tylenol ordered PRN, no doses administered in the last 24 hours. Continue PRN. Palliative-CN HPI - Data of Consult Patient: known to practice within the last 3 years Consult date: 09/17/18 Requesting Physician: Francheska Peters Primary Care Provider: Braden Garibay MD - Consult Narrative Palliative Care/Comfort Measures: Palliative care Reason for consult: Goals of care; patient's PCP told family she may only have 6 months. History of present illness: Ms. Griffin is a 83 year old female arrived to [place] ER on 09/17/18 with c/o weakness and confusion. Admitted with ANISA, Dehydration, hypercalcemia, abnormal EKG (a fib, patient has hx of), confusion, elevated troponins, and cerebrovascular disease. PMH: Afib, COPD, Dementia/Parkinson's, HTN, Thyroid disease, Osteoporosis, Venous stasis, anxiety, depression, FTT and recurrent UTIs. Initial chest x-ray showed new small pleural effusion; patient denies chest pain. Nephrology consulted; report patient is CKD stage 3 (recommend outpatient follow up) and considering bisphophate therapy IV. Patient receiving IV fluids per primary team at this time for management of dehydration, ANISA and hypercalcemia. Patient has been admitted to [facility] eight times in the last 6 months and known to Palliative care team from 03/2018 admissions. Patient is a resident at [facility]. Per patient and family report, patient's appetite has improved. Has a reduction in weight of 33 pounds in the last 6 months; however, there has been an increase in weight since the most recent admission. Patient's PCP is Dr. Garibay. Patient lying in bed with eyes closed upon arrival to bedside. Patient is alert to self only. Patient reports pain, but unable to describe location or type of pain. Patient unsure if she takes anything for pain at custodial. Patient denies anxiety, dyspnea, nausea, and vomiting. No family present at bedside. CC: Francheska Peters - Time Spent with Patient Time: Total time spent is greater than 50% in coordination of care (as documented) at patient's floor/unit and/or counseling patient: Spent 15 minutes in chart review. Spent 10 minutes at bedside evaluating patient. Spent 5 minutes on telephone with patient's daughter in law discussing goals of care. Time with patient: 30 minutes Past Med Surg Social Fam HX - Past Medical History Medical history: atrial fibrillation, COPD, dementia, GERD, hypertension, osteoporosis, thyroid disease, venous stasis, other Additional medical history: Parkinson's, UTI, FTT Psychiatric history: anxiety, depression - Past Surgical History Surgical History: no surgical history, thyroidectomy Additional surgical history: codi leg surgery for varicose veins - Social History Smoking Status: Never smoker Smokeless Tobacco Status: No Alcohol use: none Drug use: none - Family History Father Living Status: Hx Family Cardiac Disorders: Yes Mother Living Status: Hx Family Cardiac Disorders: Yes Medications and Allergies Acetaminophen [Tylenol] 650 mg PO Q6HR PRN 09/14/15 [History] Budesonide/Formoterol 160/4.5 [Symbicort 160/4.5] 2 puff IH BID 09/14/15 [History] Docusate [Colace] 100 mg PO BID 09/14/15 [History] Folic Acid 1 mg PO DAILY 09/14/15 [History] Magnesium Oxide [Magnesium] 400 mg PO DAILY 09/14/15 [History] Memantine HCl [Namenda Xr] 28 mg PO DAILY 09/14/15 [History] Omeprazole [PriLOSEC] 20 mg PO DAILY 09/14/15 [History] Azelastine 0.1% Nasal Haslet [Astelin] 2 spr NS BID 05/19/17 [History] Carbidopa/Levodopa ER 50/200 [Sinemet ER 50-200 Tab] 1 tab PO BID 05/19/17 [History] Lactobacillus Acidophilus [Acidophilus] 1 cap PO BID 05/19/17 [History] Magnesium Hydroxide [Milk of Magnesia] 30 ml PO DAILY PRN 05/19/17 [History] Quetiapine Fumarate [Seroquel] 12.5 mg PO HS 02/28/18 [History] Bisacodyl [Dulcolax] 10 mg RC DAILY PRN #30 supp.rect 04/04/18 [Rx] Megestrol Acetate [Megace] 800 mg PO DAILY #30 bottle 04/04/18 [Rx] Mirtazapine 7.5 mg PO HS 04/25/18 [History] Paroxetine HCl [Paxil] 20 mg PO DAILY 04/25/18 [History] Albuterol Sulfate [Ventolin Hfa] 2 puff IH Q4HR PRN #0 04/27/18 [Rx] Calcium Carbonate/Vitamin D3 [Calcium 600-Vit D3 400 Tablet] 1 tab PO DAILY 06/04/18 [History] Ferrous Sulfate [Iron] 325 mg PO DAILY 07/15/18 [History] Metoprolol [Lopressor] 50 mg PO BID #60 tablet 07/22/18 [Rx] Levothyroxine [Synthroid] 175 mcg PO DAILY 30 Days #30 tablet 08/30/18 [Rx] Calcitriol 1 mcg PO DAILY 09/18/18 [History] Trimethoprim 100 mg PO HS 09/18/18 [History] Allergy/AdvReac Type Severity Reaction Status Date / Time Amoxicillin Allergy unknown Verified 08/26/18 13:14 atropine Allergy unknown Verified 08/26/18 13:14 codeine Allergy See Verified 08/26/18 13:14 Comments Diphenoxylate Allergy unknown Verified 08/26/18 13:14 enalapril Allergy unknown Verified 08/26/18 13:14 esomeprazole Allergy Unknown Verified 08/26/18 13:14 gluten Allergy Diarrhea Verified 08/26/18 13:14 hydromorphone [Hydromorphone] Allergy unknown Verified 08/26/18 13:14 Iodinated Contrast- Oral and Allergy unknown Verified 08/26/18 13:14 IV Dye [Iodinated Contrast Media - IV Dye] nitrofurantoin Allergy unknown Verified 08/26/18 13:14 Penicillins Allergy unkown Verified 08/26/18 13:14 piroxicam Allergy unknown Verified 08/26/18 13:14 Sulfa (Sulfonamide Allergy unknown Verified 08/26/18 13:14 Antibiotics) ROS unobtainable: due to mental status (Patient is poor historian. Information obtained from chart review and discussion with daughter in law.) - Constitutional Constitutional ROS PAL: lethargy, malaise, no decreased appetite, no anorexia (feeding self now.) - Cardiovascular Cardiovascular ROS: no chest pain - Respiratory Respiratory: no dyspnea - Gastrointestinal Gastrointestinal: constipation, no nausea, no vomiting - Musculoskeletal Musculoskeletal ROS IM: myalgias - Integumentary ROS Integumentary: dry skin - Neurological Neurological ROS: behavioral changes (over the last 2-3 days.), memory loss (baseline.), weakness - Psychiatric Psychiatric general PM: behavioral changes, memory loss, no anxiety Palliative Care-Exam - Constitutional Vitals: Temp Pulse Resp BP Pulse Ox 98.1 F 67 15 134/84 93 09/18/18 14:45 09/18/18 14:45 09/18/18 14:45 09/18/18 14:45 09/18/18 14:45 General appearance: Present: no acute distress, obese. Absent: cooperative - Head Head Exam: Present: atraumatic, normal inspection - Eye Eye exam: Present: EOMI, normal appearance, PERRL, conjuntiva pink. Absent: nystagmus, periorbital swelling, periorbital tenderness Pupils: Present: normal accommodation, PERRL. Absent: unequal - ENT ENT exam: Present: mucous membranes dry, normal external ear exam. Absent: mucous membranes moist - Expanded ENT Exam Mouth Exam: Absent: drooling, moist, tongue hypertrophy - Neck Neck exam: Present: full ROM, normal inspection. Absent: tenderness - Expanded Neck Exam Neck exam: Absent: anterior neck swelling, thyroid mass, tracheal deviation - Respiratory Respiratory exam: Present: CTAB. Absent: accessory muscle use, decreased breath sounds, respiratory distress, tachypnea - Cardiovascular Cardiovascular exam: Present: irregular rhythm. Absent: diastolic murmur, RRR, systolic murmur - Expanded Cardiovascular Exam Peripheral pulses: 2+: Radial (L), Radial (R), Posterior Tibialis (L), Posterior Tibialis (R), Dorsalis Pedis (L) PM, Dorsalis Pedis (R) PM - GI/Abdominal Exam GI/Abdominal exam: Present: diminished bowel sounds, soft. Absent: distended, tenderness - Rectal Rectal exam: Present: deferred - Catheter Type: Urethral (Nuñez) - Extremities Exam Extremities exam: Present: normal inspection. Absent: calf tenderness, full ROM, pedal edema, tenderness - Expanded Upper Extremities Exam General: Present: normal inspection - Expanded Lower Extremities Exam Hip exam: Present: normal inspection - Back Exam Back exam: Present: normal inspection. Absent: full ROM, rash noted, tenderness - Neurological Exam Neurological exam: Present: alert, altered. Absent: oriented X3 - Expanded Neurological Exam Patient oriented to: Present: person. Absent: place, time Coma Scale Eye Opening: To Voice Coma Scale Motor Response: Obeys Commands Coma Scale Verbal Response: Confused Coma Scale Total: 13 - Psychiatric Psychiatric exam: Present: flat affect. Absent: anxious - Skin Skin exam: Present: dry, intact, pallor, warm Internal Medicine - CN: Reslt - Labs CBC & Chem 7: 09/18/18 00:18 09/18/18 00:18 Labs: Short CBC 09/18/18 Range/Units 00:18 WBC 4.9 (4.3-11.1) K/mcL Hgb 9.8 L (11.5-15.4) g/dL Hct 31.4 L (35.3-44.9) % Plt Count 102 L (140-400) K/mcL Neutrophils # 3.4 (1.6-8.9) K/mcL BMP 09/18/18 00:18 Sodium 140 Potassium 5.2 H Chloride 108 H Carbon Dioxide 26 BUN 76 H Creatinine 2.48 H Glucose 95 Calcium 13.9 H* Cardiac Enzymes 09/17/18 09/18/18 Range/Units 18:32 00:18 Troponin I 0.04 H* 0.03 (< 0.04) ng/mL Urine 09/18/18 Range/Units 11:08 Urine Color Yellow (Yellow) Urine Clarity Cloudy A (Clear) Urine pH 7.0 (5.0-8.0) pH Units Ur Specific [place] 1.011 (1.010-1.025) Urine Protein 30 H (Neg-Trace) mg/dL Urine Glucose (UA) Normal (Normal) mg/dL - Impressions Impressions Retroperitoneum Ultrasound 09/17/18 20:30 IMPRESSION: No evidence of hydronephrosis. Echogenic foci in the left kidney are favored to represent a nonobstructing calculi. D/ / Seth Gonzalez MD / Seth Gonzalez MD Interpreting Provider: Seth Gonzalez MD Consult Discharge Plan - Plan Referrals: Braden Garibay MD [Primary Care Provider] - Palliative Quality Palliative Quality: Screen for Code Status: Yes, Screen for Goals of Care: Yes, Screen for Pain: Yes, If Pain Regimen Started, Initiate Bowel Regimen: NA, Screen for Nausea/Vomitting: Yes Code Status: 09/17/18 15:28 Resuscitation Status: Active [RES] Routine Comment: Resuscitation Status: Full Code Palliative Scale - Palliative Performance Scale How ambulatory is this patient?: Mainly sit / lie What is patient's level of activity and evidence of disease?: Unable hobby/housework, Significant disease How much self-care assistance does patient require?: Total care How much oral intake does the patient have?: Normal or reduced What is this patient's level of consciousness?: Full or drowsy with or without confusion Palliative Performance Score: 50 %
[2018-09-18 16:34] LABS: Prothrombin Time 11.3 Seconds (9.4-12.1)
[2018-09-18 16:45] LABS: Calcium 12.6 mg/dL (8.6-10.3); Potassium 4.7 mEq/L (3.5-5.1)
[2018-09-18] MEDS: 0.9 % Sodium Chloride 1,000 ML IVC SCH (17:38)
[2018-09-18 19:18] LABS: Adenovirus Not Detected (Not Detect); Bordetella Pertussis Not Detected (Not Detect); Chlamydophila pneumoniae Not Detected (Not Detect); Coronavirus 229E Not Detected (Not Detect); Coronavirus HKU1 Not Detected (Not Detect); Coronavirus NL63 Not Detected (Not Detect); Coronavirus OC43 Not Detected (Not Detect); Human Metapneumovirus Not Detected (Not Detect); Human Rhinovirus/Enterovirus Not Detected (Not Detect); Influenza A Subtype 2009 H1 Not Detected (Not Detect); Influenza A Untypeable Not Detected (Not Detect); Influenza B Not Detected (Not Detect); Mycoplasma pneumoniae Not Detected (Not Detect); Parainfluenza Virus 1 Not Detected (Not Detect); Parainfluenza Virus 2 Not Detected (Not Detect); Parainfluenza Virus 3 Not Detected (Not Detect); Parainfluenza Virus 4 Not Detected (Not Detect); Respiratory Syncytial Virus Not Detected (Not Detect)
[2018-09-18] MEDS: Azelastine 0.1% Nasal Spray 30 ML BOTTLE NS SCH (20:23)
[2018-09-18] MEDS ORDERED: Mirtazapine 15 MG TABLET PO SCH (21:00)
[2018-09-19] MEDS ORDERED: Dextrose Gel 15 GM/37.5 ML TUBE PO PRN ×2 (00:53)
[2018-09-19] MEDS ORDERED: *HR* Dextrose 50 % in Water (Syg) 50 ML SYRINGE IVP PRN (00:53)
[2018-09-19] MEDS ORDERED: D5% in Water 1,000 ML IVC PRN (00:53)
[2018-09-19 04:16] LABS: Mean Corpuscular Volume 97.4 fL (83.0-100.0); Red Cell Distribution Width 16.4 % (11.5-14.5)
[2018-09-19 04:18] LABS: Hematocrit 29.7 % (35.3-44.9); Hemoglobin 9.1 g/dL (11.5-15.4); Immature Platelets 5.5 % (1.1-6.1); Mean Corpuscular HGB Conc 30.6 g/dL (31.6-35.5); Mean Corpuscular Hemoglobin 29.8 pg (28.0-33.3); Mean Platelet Volume 12.4 fL (9.4-12.4); Red Blood Count 3.05 M/mcL (3.82-4.97)
[2018-09-19 04:40] LABS: Calcium 11.6 mg/dL (8.6-10.3); Potassium 4.4 mEq/L (3.5-5.1)
[2018-09-19] MEDS: *HR* Heparin 5,000 UNIT/ML VIAL SQ SCH ×2 (05:38→18:08)
[2018-09-19] MEDS: 0.9 % Sodium Chloride 1,000 ML IVC SCH (06:27)
[2018-09-19] MEDS ORDERED: Oseltamivir Phosphate 30 MG CAPSULE PO SCH (09:00)
--- NOTE | 2018-09-19 10:15 | Internal Med Progress Note ---
<Francheska Peters - Last Filed: 09/19/18 14:14> Hospitalist Progress Note - Encounter Date of Encounter: 09/19/18 - Exam Vitals: Temp Pulse Resp BP Pulse Ox 98.0 F 74 16 140/91 94 09/19/18 10:54 09/19/18 10:54 09/19/18 10:54 09/19/18 10:54 09/19/18 10:54 - Assessment and Plan (1) Hypothyroidism Current Visit: Yes Status: Chronic (2) Atrial fibrillation Current Visit: Yes Status: Chronic (3) Constipation Current Visit: Yes Status: Acute (4) Parkinson disease Current Visit: Yes Status: Chronic (5) ANISA (acute kidney injury) Current Visit: Yes Status: Acute (6) Hypercalcemia Current Visit: Yes Status: Acute (7) Acute metabolic encephalopathy Current Visit: Yes Status: Acute - Time Spent with Patient Total time spent is greater than 50% in coordination of care (as documented) at patient's floor/unit and/or counseling patient: Internal Medicine: Result - Labs CBC & Chem 7: 09/19/18 04:06 09/19/18 04:06 Labs: Short CBC 09/19/18 Range/Units 04:06 WBC 4.2 L (4.3-11.1) K/mcL Hgb 9.1 L (11.5-15.4) g/dL Hct 29.7 L (35.3-44.9) % Plt Count 85 L (140-400) K/mcL BMP 09/18/18 09/19/18 15:58 04:06 Sodium 143 145 Potassium 4.7 4.4 Chloride 112 H 113 H Carbon Dioxide 22 L 23 BUN 78 H 78 H Creatinine 2.48 H 2.64 H Glucose 74 78 Calcium 12.6 H 11.6 H - ABG Interpretation ABG results: PT/INR, D-dimer PT 11.3 Seconds (9.4-12.1) 09/18/18 15:58 Consult Discharge Plan - Plan Referrals: Braden Garibay MD [Primary Care Provider] - - Attending Attestation The history, physical exam, and medical decision making was performed by medical student Jae either while I was physically present and actively involved or I personally re-performed the exam and medical decision making. I have verified the accuracy of the medical student's documentation with regards to the history, physical exam findings, and medical decision making. Ms Griffin is admitted with hypercalcemia with metabolic encephalopathy. Found to have influenza asleep, awakes to name. no family at bedside. RN at bedside She will open her eyes and answer questions today though not entirely sure they are reliable yes/no answers. Follows commands Denies pain, sob. No spontaneous speech and no further hpi or ros can be obtained due to somnolence gen- somnolent, but more alert than yesterday appears stated age eyes- pupils equal round, no scleral icterus ent- dry lips and mucus membranes cv- reg rate and rhythm, normal s1,s2, no murmurs appreciated, no pitting le edema lungs- ctabl, no wheezing, rhonchi or crackles, normal resp effort on ra abd- soft, no apparent tenderness, no guarding or grimace, non distended, + bs neuro- awakes to name somnolent but can maintain attention longer than yesterday, no spontaneous speech, speech is clear, no facial asymmetry, cannot appreciate focal neuro deficits, 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 Acute encephalopathy, improving - multifactorial likely related to hypercalcemia, dehydration, dementia, sedating home meds and influenza- No focal neuro deficits appreciated, does not appear to be CVA/TIA at this time, [place] in setting of known symptomatic hypercalcemia, flu + and ANISA on CKD CT head no acute findings (but possible sinusitis noted, pt cannot report sxs at this time), CXR without infiltrates, no wbc elevation or fever to suggest infectious etiology Does not appear to be ACS, trop mild elevation 0.04 down trend to normal without ischemic ekg changes -hypercalcemia tx as below, cont tele, neuro checks, hold home remeron and hold seroquel now as well, tamiflu for influenza 2. Dehydration - IV fluids cahnged to 1/2 NS. monitor for fluid overload, i/os 3. Hypercalcemia, improving with fluids - cont iv hydration, nephro consulted and appreciate recs, may require IV bisphosphonates 4. ANISA on CKD- avoid nephro toxins, cont ivfs, will require outpt nephro fu once dc'd for ckd 5. Hyperkalemia-resolved, cont tele, cont to monitor, nephro following 6. Elevated TSH in setting of hypothyroidism 2/2 thyroidectomy- recent outpt synthroid increase, tsh improved in last 3 weeks on chart review, no further adjustment as will see pcp for repeat testing of tsh once med change has had chance to take full effect in upcoming weeks 7. Chronic Afib, currently NSR- on NO AC at home, will not initiate here, cont home metoprolol 8. Influenza + - tamiflu and supportive care speech and nutrition consults, with her being more awake will assess for ability to take oral liquids/food <Seth Rowe - Last Filed: 09/19/18 14:46> Hospitalist Progress Note - Encounter Date of Encounter: 09/19/18 Time of Encounter: 10:12 - Subjective Interval History: Patient is asleep upon entering room. Patient wakes up after multiple attempts. Patient looks at me when I call her name. Patient appears to have difficulty hearing. Patient denies chest pain, shortness of breath, cough. Although patient denied cough she coughed 3-4 times during interview. - Exam Vitals: Temp Pulse Resp BP Pulse Ox 97.5 F L 75 16 152/89 95 09/19/18 06:29 09/19/18 06:29 09/19/18 06:29 09/19/18 06:29 09/19/18 06:29 Exam: Gen: NAD, AAOx1 lying comfortable in bed. Patient responds to verbal stimuli but answers questions inappropriately HEENT: Normocephalic, atraumatic, dry mucous membranes, sunken eyes, PERRLA, EOMI Neck: Supple. No cervical lymphadenopathy, previous thyroidectomy scar Cardiac: RRR, no murmur, S1 and S2 present, No pedaledema Pulmonary: Coarse breath sounds, symmetric chest expansion Abdomen: soft, nontender, non distended, bowel sounds present Skin: warm, dry, intact, no erythema. Neuro: exam is limited secondary to mental status. Psych: Unable to assess secondary to mental status - Assessment and Plan (1) Influenza A Current Visit: Yes Status: Acute Assessment and Plan: Start Tamiflu. Currently on day 15 -supportive care (2) Hypercalcemia Current Visit: Yes Status: Acute Assessment and Plan: - Calcium of 15.5 on presentation on 09/17/18, 09/18/18 13.9, 09/19/18 11.6. 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 Echogenic foci in the left kidney are favored to represent a nonobstructing calculi. -Continue IVF -U/A shows no infection. Waiting to see results of urine culture -Nuñez in place and continue to monitor I & O's. -Nephrology following (5) Acute metabolic encephalopathy Current Visit: Yes Status: Acute Assessment and Plan: - Suspect secondary to hypercalcemia as above - Also consider dehydration - Continue to treat as elsewhere and monitor for improvement (6) Atrial fibrillation Current Visit: Yes Status: Chronic Assessment and Plan: - Chronic atrial fibrillation, not on anticoagulation at home - Rate controlled at this time with most recent rate at 74 on 09/19/18 at 10:54. - Continue home beta dong (7) Constipation Current Visit: Yes Status: Acute Assessment and Plan: -Treat underlying hypercalcemia as above -Continue home stool softeners and laxatives -Hold iron supplements (8) Parkinson disease Current Visit: Yes Status: Chronic Assessment and Plan: - Patient reportedly not at baseline per daughter in law and son - known history of dementia with additional Parkinson's disease - Hold Megace and Seroquel (9) Dehydration Current Visit: Yes Status: Acute Assessment and Plan: -Continue IVF -IVF changed from 0.9 NaCl to 0.45 NaCl (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 Visit: Yes Status: Chronic Assessment and Plan: -Continue fall precautions -Awaiting palliative consult (11) Anemia Current Visit: Yes Status: Chronic Assessment and Plan: Continue to monitor and transfuse if necessary Hold iron supplementation (12) Dementia Current Visit: Yes Status: Chronic Assessment and Plan: see above Parkinson's (13) Hypothyroidism Current Visit: Yes Status: Chronic Assessment and Plan: - Secondary to thyroidectomy - 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 - No residual PTH function - 09/18/18 TSH, 9.603 -09/18/18 PTH, <1.0 L (14) Hypoparathyroidism Current Visit: Yes Status: Chronic Assessment and Plan: see above hypothyroidism (15) Thrombocytopenia Current Visit: Yes Status: Chronic Assessment and Plan: -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 per review of patients chart - No signs of bleed -no indications for transfusion at this time (16) Elevated troponin Current Visit: Yes Status: Acute Assessment and Plan: No longer trending, resolved Likely due to demand ischemia in setting of ANISA (17) DVT prophylaxis Current Visit: Yes Status: Acute Assessment and Plan: SubQ heparin - Time Spent with Patient Total time spent is greater than 50% in coordination of care (as documented) at patient's floor/unit and/or counseling patient: Internal Medicine: Result - Labs CBC & Chem 7: 09/19/18 04:06 09/19/18 04:06 Labs: Short CBC 09/19/18 Range/Units 04:06 WBC 4.2 L (4.3-11.1) K/mcL Hgb 9.1 L (11.5-15.4) g/dL Hct 29.7 L (35.3-44.9) % Plt Count 85 L (140-400) K/mcL BMP 09/18/18 09/18/18 09/19/18 00:18 15:58 04:06 Sodium 140 143 145 Potassium 5.2 H 4.7 4.4 Chloride 108 H 112 H 113 H Carbon Dioxide 26 22 L 23 BUN 76 H 78 H 78 H Creatinine 2.48 H 2.48 H 2.64 H Glucose 95 74 78 Calcium 13.9 H* 12.6 H 11.6 H Urine 09/18/18 Range/Units 11:08 Urine Color Yellow (Yellow) Urine Clarity Cloudy A (Clear) Urine pH 7.0 (5.0-8.0) pH Units Ur Specific Mathews 1.011 (1.010-1.025) Urine Protein 30 H (Neg-Trace) mg/dL Urine Glucose (UA) Normal (Normal) mg/dL - ABG Interpretation ABG results: PT/INR, D-dimer PT 11.3 Seconds (9.4-12.1) 09/18/18 15:58 <Francheska Peters - Last Filed: 09/19/18 14:14> (1) Hypothyroidism Qualifiers: Hypothyroidism type: postoperative Qualified Code(s): E89.0 - Postprocedural hypothyroidism (2) Atrial fibrillation Qualifiers: Atrial fibrillation type: chronic Qualified Code(s): I48.2 - Chronic atrial fibrillation (3) Constipation Qualifiers: Constipation type: other constipation type Qualified Code(s): K59.09 - Other constipation <Seth Rowe M - Last Filed: 09/19/18 14:46> (6) Atrial fibrillation Qualifiers: Atrial fibrillation type: chronic Qualified Code(s): I48.2 - Chronic atrial fibrillation (7) Constipation Qualifiers: Constipation type: other constipation type Qualified Code(s): K59.09 - Other constipation (11) Anemia Qualifiers: Anemia type: other cause Other causes of anemia: chronic disease, other Qualified Code(s): D63.8 - Anemia in other chronic diseases classified elsewhere (12) Dementia Qualifiers: Dementia type: Parkinson's disease Dementia behavioral disturbance: without behavioral disturbance Qualified Code(s): G20 - Parkinson's disease; F02.80 - Dementia in other diseases classified elsewhere without behavioral disturbance (13) Hypothyroidism Qualifiers: Hypothyroidism type: postoperative Qualified Code(s): E89.0 - Postprocedural hypothyroidism (14) Hypoparathyroidism Qualifiers: Hypoparathyroidism type: other hypoparathyroidism Qualified Code(s): E20.8 - Other hypoparathyroidism
[2018-09-19] MEDS: Budesonide/Formoterol 160/4.5 1 PUFF INH IH SCH ×2 (11:06→20:35)
[2018-09-19] MEDS: Carbidopa/Levodopa ER 50/200 TABLET PO SCH ×2 (11:08→21:04)
[2018-09-19] MEDS: Folic Acid 1 MG TABLET PO SCH (11:08)
[2018-09-19] MEDS: Magnesium Oxide 400 MG TABLET PO SCH (11:10)
[2018-09-19] MEDS: Azelastine 0.1% Nasal Spray 30 ML BOTTLE NS SCH ×2 (11:14→21:05)
--- NOTE | 2018-09-19 11:51 | Nephrology Progress Note ---
Addendum entered and electronically signed by Clovis Hill DO 09/20/18 08:43: I have personally performed a face to face evaluation on this patient. I have reviewed and agree with the care plan. History and Exam by me shows: Prerenal ANISA: cont IVF but change to 1/2 NS to minimize the hyperchloremia. 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 The pt was more alert today, which is reassuring. She remains high risk and has required a high degree of MDM and EM and will require staying in the hospital. Original Note: Date of Encounter: 09/19/18 Time of Encounter: 11:48 - Assessment and Plan (1) Acute kidney injury superimposed on CKD Current Visit: Yes Status: Acute Baseline appears to be chronic kidney disease stage III B. GFR is 17 today. Uop 500 cc yesterday for 24 hour total and 1000 for today. Per [facility] patient has not seen [facility]. Would recommend her to establish with Dr. Hill after discharge, unless she sees another pathology laboratory director. Avoid nephrotoxins and renal dose all medications. Strict I&O. Encourage PO intake if able. (2) Hypercalcemia Current Visit: Yes Status: Acute Initial calcium was 15.5, is now 11.6 Continue IV fluid, changed to .45 @ 75/hr. (3) Metabolic encephalopathy Current Visit: Yes Status: Acute Per primary. (4) Atrial fibrillation Current Visit: Yes Status: Chronic Per primary. Qualifiers: Atrial fibrillation type: chronic Qualified Code(s): I48.2 - Chronic atrial fibrillation (5) Dehydration, mild Current Visit: No Status: Acute Continue IV fluid. Subjective Principal diagnosis: confusion Interval history: Pt seen and examined. Pt will awaken to name, but only answers yes/no to questions. ROS unobtainable due to mentation. Objective - Vital Signs Vital signs: Vital Signs Temp Pulse Resp BP Pulse Ox 09/19/18 10:54 98.0 F 74 16 140/91 94 09/19/18 06:29 97.5 F L 75 16 152/89 95 09/19/18 04:22 97.5 F L 72 16 122/76 92 09/18/18 21:44 16 93 09/18/18 19:58 97.4 F L 79 18 123/78 92 09/18/18 14:45 98.1 F 67 15 134/84 93 Intake and Output 09/18/18 09/19/18 09/19/18 23:59 07:59 15:59 Intake Total 1000 / 1000 Output Total 1000 / 1000 Balance 0 / 0 Intake: IV Fluids 1000 / 1000 0.9 % Sodium Chloride 1,000 ML 1000 / 1000 @ 75 mls/hr IVC .[id number] PRIYANKA Rx #:[id number] Oral 0 / 0 Output: Catheter 1000 / 1000 Other: # Bowel Movement Diapers 0 Weight 70.4 kg Blood Glucose* 78 80 Patient Weight 09/19/18 23:59 Weight 70.4 kg - General Appearance General appearance: Present: fatigue, frail EENT: Present: ATNC, hearing intact, vision intact Neck: Present: supple Respiratory: Present: clear Cardiology: Present: no edema, normal S1, normal S2 Gastrointestinal: Present: normoactive bowel sounds, no tenderness, no guarding Integumentary: Present: no rash, warm and dry Neurologic: Present: confused Musculoskeletal: Present: no deformities, no erythema Psychiatric: Present: mood/affect appropriate, cooperative - Lab 09/19/18 04:06 09/19/18 04:06 Most recent lab results Calcium 11.6 mg/dL (8.6-10.3) H 09/19/18 04:06 Phosphorus 5.0 mg/dL (2.7-4.5) H 09/19/18 04:06 Magnesium 1.9 mg/dL (1.6-2.6) 09/18/18 00:18 Urine Sodium 82.6 mEq/L 09/18/18 11:08 Consult Discharge Plan - Plan Referrals: Braden Garibay MD [Primary Care Provider] -
[2018-09-20] MEDS: *HR* Heparin 5,000 UNIT/ML VIAL SQ SCH ×2 (05:38→18:05)
[2018-09-20 06:44] LABS: Hematocrit 33.3 % (35.3-44.9); Immature Granulocytes % 1.5 % (0-4)
[2018-09-20 06:46] LABS: Basophils % 0.4 %; Eosinophils # 0.1 K/mcL (0.0-0.6); Eosinophils % 1.1 %; Hemoglobin 10.2 g/dL (11.5-15.4); Immature Platelets 7.5 % (1.1-6.1); Lymphocytes # 0.9 K/mcL (0.6-4.6); Lymphocytes % 16.6 %; Mean Corpuscular HGB Conc 30.6 g/dL (31.6-35.5); Mean Corpuscular Hemoglobin 29.7 pg (28.0-33.3); Mean Corpuscular Volume 96.8 fL (83.0-100.0); Mean Platelet Volume 13.1 fL (9.4-12.4); Monocytes # 0.3 K/mcL (0.0-1.3); Monocytes % 6.4 %; Neutrophils # 3.9 K/mcL (1.6-8.9); Red Blood Count 3.44 M/mcL (3.82-4.97); Red Cell Distribution Width 16.3 % (11.5-14.5)
[2018-09-20 06:57] LABS: Platelet Count 91 K/mcL (140-400)
[2018-09-20 07:02] LABS: Calcium 11.1 mg/dL (8.6-10.3); Potassium 4.1 mEq/L (3.5-5.1)
[2018-09-20] MEDS: Budesonide/Formoterol 160/4.5 1 PUFF INH IH SCH ×2 (07:37→20:33)
[2018-09-20] MEDS: Carbidopa/Levodopa ER 50/200 TABLET PO SCH ×2 (09:07→21:23)
[2018-09-20] MEDS: Oseltamivir Phosphate 30 MG CAPSULE PO SCH (09:07)
[2018-09-20] MEDS: Folic Acid 1 MG TABLET PO SCH (09:07)
[2018-09-20] MEDS: Magnesium Oxide 400 MG TABLET PO SCH (09:07)
[2018-09-20] MEDS: Azelastine 0.1% Nasal Spray 30 ML BOTTLE NS SCH ×2 (09:08→21:32)
[2018-09-20 09:12] LABS: Large Platelets Present (Not Present); Platelet Estimate Slight Decrease (Normal)
--- NOTE | 2018-09-20 09:42 | Internal Med Progress Note ---
<Seth Rowe Didier - Last Filed: 09/20/18 09:35> Hospitalist Progress Note - Encounter Date of Encounter: 09/20/18 Time of Encounter: 09:36 - Subjective Interval History: Patient is awake and being fed breakfast by daughter in law upon entering the room. She is able to hold her own cup while drinking. Patient coughs 2-3 times during the interview. She responds inappropriately to questions. Her daughter in law is concerned about the coughing because Irma has had pneumonia in the past. Daughter in law ask about Irma's "memory" pill. I told her she was taking her memantine but her Seroquel was being held - Exam Vitals: Temp Pulse Resp BP Pulse Ox 98.3 F 75 16 152/90 95 09/20/18 06:34 09/20/18 06:34 09/20/18 07:38 09/20/18 06:34 09/20/18 07:38 Exam: Gen: NAD, AAOx1 lying comfortable in bed. Patient answers questions inapp ropriately HEENT: Normocephalic, atraumatic, dry mucous membranes, EOMI Neck: Supple. No cervical lymphadenopathy, previous thyroidectomy scar Cardiac: RRR, no murmur, S1 and S2 present, No pedal edema Pulmonary: coarse breath sounds bilaterally, symmetric chest expansion Abdomen: soft, non-tender, non-distended, bowel sounds present Skin: warm, dry, intact, no erythema. Neuro: no facial droop, symmetric strength bilaterally in LE's and UE's, no dysarthria Psych: Unable to assess secondary to mental status - Assessment and Plan (1) Influenza A Current Visit: Yes Status: Acute Assessment and Plan: Continue Tamiflu day 09/17 (2) Hypercalcemia Current Visit: Yes Status: Acute Assessment and Plan: - Calcium of 15.5 on presentation on 09/17/18, calcium 11.1 today -Continue IVF - S/p parathyroidectomy, current PTH <1.0 -Possibly due to Milk alk, dehydration -Vitamin D 27, TSH 9.603 - Hold calcium supplement -Consider giving bisphosponates - Nephrology has been consulted and following recommendations -Patient following up with lump receiver after discharge -Awaiting PTHrp results (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 Echogenic foci in the left kidney are favored to represent a nonobstructing calculi. -Continue IVF -U/A shows no infection. Waiting to see results of urine culture -Nuñez in place and continue to monitor I & O's. -Nephrology following and patient has following with nephro after d/c (5) Acute metabolic encephalopathy Current Visit: Yes Status: Acute Assessment and Plan: - Suspect secondary to hypercalcemia as above - Also consider dehydration -Patient has shown daily improvements in alertness - Continue to treat as elsewhere and monitor for further improvement (6) Atrial fibrillation Current Visit: Yes Status: Chronic Assessment and Plan: - Chronic atrial fibrillation, not on anticoagulation at home - Rate controlled at this time with most recent rate of 75 - Continue home beta dong and continue to monitor (7) Constipation Current Visit: Yes Status: Acute Assessment and Plan: -Treat underlying hypercalcemia as above -Continue home stool softeners and laxatives -Hold iron supplements (8) Parkinson disease Current Visit: Yes Status: Chronic Assessment and Plan: - Patient mental status improving but reportedly not at baseline per daughter in law and son - known history of dementia with additional Parkinson's disease - Hold Seroquel (9) Dehydration Current Visit: Yes Status: Acute Assessment and Plan: -Continue IVF of 0.45 NaCl at 75ml/hr (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 Visit: Yes Status: Chronic Assessment and Plan: -Continue fall precautions -Family does not want any further palliative consultation and patient remains full code (11) Anemia Current Visit: Yes Status: Chronic Assessment and Plan: Continue to monitor and transfuse if necessary Hold iron supplementation (12) Dementia Current Visit: Yes Status: Chronic Assessment and Plan: see above Parkinson's (13) Hypothyroidism Current Visit: Yes Status: Chronic Assessment and Plan: - Secondary to thyroidectomy - 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 - No residual PTH function - 09/18/18 TSH, 9.603 -09/18/18 PTH, <1.0 L (14) Hypoparathyroidism Current Visit: Yes Status: Chronic Assessment and Plan: see above hypothyroid (15) Thrombocytopenia Current Visit: Yes Status: Chronic Assessment and Plan: -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1) K/mcL Hgb 10.2 L (11.5-15.4) g/dL Hct 33.3 L (35.3-44.9) % Plt Count 91 L (140-400) K/mcL Neutrophils # 3.9 (1.6-8.9) K/mcL BMP 09/20/18 06:12 Sodium 143 Potassium 4.1 Chloride 113 H Carbon Dioxide 23 BUN 70 H Creatinine 2.43 H Glucose 92 Calcium 11.1 H - ABG Interpretation ABG results: PT/INR, D-dimer PT 11.3 Seconds (9.4-12.1) 09/18/18 15:58 Consult Discharge Plan - Plan Referrals: Braden Garibay MD [Primary Care Provider] - <Francheska Peters - Last Filed: 09/20/18 14:42> Hospitalist Progress Note - Encounter Date of Encounter: 09/20/18 - Exam Vitals: Temp Pulse Resp BP Pulse Ox 98.3 F 79 16 118/76 93 09/20/18 10:59 09/20/18 10:59 09/20/18 10:59 09/20/18 10:59 09/20/18 10:59 - Assessment and Plan (1) Hypothyroidism Current Visit: Yes Status: Chronic (2) Atrial fibrillation Current Visit: Yes Status: Chronic (3) Constipation Current Visit: Yes Status: Acute (4) Parkinson disease Current Visit: Yes Status: Chronic (5) ANISA (acute kidney injury) Current Visit: Yes Status: Acute (6) Hypercalcemia Current Visit: Yes Status: Acute (7) Acute metabolic encephalopathy Current Visit: Yes Status: Acute - Time Spent with Patient Total time spent is greater than 50% in coordination of care (as documented) at patient's floor/unit and/or counseling patient: Internal Medicine: Result - Labs CBC & Chem 7: 09/20/18 06:12 09/20/18 06:12 Labs: Short CBC 09/20/18 Range/Units 06:12 WBC 5.3 (4.3-11.1) K/mcL Hgb 10.2 L (11.5-15.4) g/dL Hct 33.3 L (35.3-44.9) % Plt Count 91 L (140-400) K/mcL Neutrophils # 3.9 (1.6-8.9) K/mcL BMP 09/20/18 06:12 Sodium 143 Potassium 4.1 Chloride 113 H Carbon Dioxide 23 BUN 70 H Creatinine 2.43 H Glucose 92 Calcium 11.1 H - ABG Interpretation ABG results: PT/INR, D-dimer PT 11.3 Seconds (9.4-12.1) 09/18/18 15:58 - Attending Attestation The history, physical exam, and medical decision making was performed by medical student Jae either while I was physically present and actively involved or I personally re-performed the exam and medical decision making. I have verified the accuracy of the medical student's documentation with regards to the history, physical exam findings, and medical decision making. Ms Griffin is admitted with hypercalcemia with metabolic encephalopathy. Found to have influenza awake, son at bedside. more alert still no spontaneous speech but answers questions. ate breakfast as per son and held her own cup. More alert today but not back to baseline. + cough, pt denies sob, pain, chest pain,abd/bladder pain. gen- awake, alert, appears stated age eyes- pupils equal round, no scleral icterus cv- reg rate and rhythm, normal s1,s2, no murmurs appreciated, no pitting le edema lungs- ctabl, no wheezing, rhonchi or crackles, normal resp effort on ra abd- soft, no apparent tenderness, no guarding or grimace, non distended, + bs neuro- awake, no spontaneous speech, follows commands, speech is clear, no facial asymmetry, cannot appreciate focal neuro deficits 1. Acute encephalopathy, improving - multifactorial likely related to hypercalcemia, dehydration, dementia, sedating home meds and influenza- No focal neuro deficits appreciated, does not appear to be CVA/TIA at this time, [place] in setting of known symptomatic hypercalcemia, flu + and ANISA on CKD CT head no acute findings (but possible sinusitis noted, pt cannot report sxs at this time), CXR without infiltrates Does not appear to be ACS related, trop mild elevation 0.04 down trend to normal without ischemic ekg changes -hypercalcemia tx as below, cont tele, hold home remeron and seroquel , cont tamiflu for influenza 2. Dehydration - IV fluids as per nephro, monitor for fluid overload 3. Hypercalcemia, improving with fluids - cont iv hydration, nephro consulted and appreciate recs, may require IV bisphosphonates 4. ANISA on CKD improving- avoid nephro toxins, cont ivfs, will require outpt nephro fu once dc'd for ckd 5. Elevated TSH in setting of hypothyroidism 2/2 thyroidectomy- recent outpt synthroid increase, tsh improved in last 3 weeks on chart review, no further ad justment as will see pcp for repeat testing of tsh once med change has had chance to take full effect in upcoming weeks 8. Chronic Afib, currently NSR- on NO AC at home, will not initiate here, cont h ome metoprolol 8. Influenza + - tamiflu and supportive care 9. As part of infectious work up Ucx sent- gnr >10,000 CFU but not greater than 100K CFU- hold on abx, cont to follow prelim cx results/finalized results- no fever, no wbc elevation, asx she is a bed hold at her [facility] and may return when medically ready <Seth Rowe M - Last Filed: 09/20/18 09:35> (6) Atrial fibrillation Qualifiers: Atrial fibrillation type: chronic Qualified Code(s): I48.2 - Chronic atrial fibrillation (7) Constipation Qualifiers: Constipation type: other constipation type Qualified Code(s): K59.09 - Other constipation (11) Anemia Qualifiers: Anemia type: other cause Other causes of anemia: chronic disease, other Qualified Code(s): D63.8 - Anemia in other chronic diseases classified elsewhere (12) Dementia Qualifiers: Dementia type: Parkinson's disease Dementia behavioral disturbance: without behavioral disturbance Qualified Code(s): G20 - Parkinson's disease; F02.80 - Dementia in other diseases classified elsewhere without behavioral disturbance (13) Hypothyroidism Qualifiers: Hypothyroidism type: postoperative Qualified Code(s): E89.0 - Postprocedural hypothyroidism (14) Hypoparathyroidism Qualifiers: Hypoparathyroidism type: other hypoparathyroidism Qualified Code(s): E20.8 - Other hypoparathyroidism <Francheska Peters M - Last Filed: 09/20/18 14:42> (1) Hypothyroidism Qualifiers: Hypothyroidism type: postoperative Qualified Code(s): E89.0 - Postprocedural hypothyroidism (2) Atrial fibrillation Qualifiers: Atrial fibrillation type: chronic Qualified Code(s): I48.2 - Chronic atrial fibrillation (3) Constipation Qualifiers: Constipation type: other constipation type Qualified Code(s): K59.09 - Other constipation
--- NOTE | 2018-09-20 09:54 | Electrocardiograph Report ---
[facility] Test Date: 2018-09-17 Pat Name: Irma Griffin Department: [id number] Room: 3A11 Gender: F [employer] Clerk: : 1935 Requested By: Carlos Mack Order Number: [id number] Reading MD: Seven Gunter Measurements Intervals [place] Rate: 79 P: TN: QRS: 40 QRSD: 67 T: 68 QT: 349 QTc: 400 Interpretive Statements Atrial fibrillation Anteroseptal infarct, age indeterminate Electronically Signed On 09-20-2018 9:52:23 EST by Seven Gunter
--- NOTE | 2018-09-20 17:55 | Nephrology Progress Note ---
Date of Encounter: 09/20/18 Time of Encounter: 17:51 - Assessment and Plan (1) Acute kidney injury superimposed on CKD Current Visit: Yes Status: Acute Baseline appears to be chronic kidney disease stage III B. GFR is improving Avoid nephrotoxins and renal dose all medications. Strict I&O. Encourage PO intake if able. (2) Hypercalcemia Current Visit: Yes Status: Acute Initial calcium was 15.5, Improving Continue IV fluid, changed to .45 @ 75/hr. (3) Atrial fibrillation Current Visit: Yes Status: Chronic Per primary. Qualifiers: Atrial fibrillation type: chronic Qualified Code(s): I48.2 - Chronic atrial fibrillation (4) Dehydration, mild Current Visit: No Status: Acute (5) Metabolic encephalopathy Current Visit: Yes Status: Acute Subjective Principal diagnosis: confusion Interval history: Patient seen. She remains confused. ROS is unobtainable. Objective - Vital Signs Vital signs: Vital Signs Temp Pulse Resp BP Pulse Ox 09/20/18 10:59 98.3 F 79 16 118/76 93 09/20/18 07:38 16 95 09/20/18 06:34 98.3 F 75 16 152/90 95 09/20/18 04:51 98.3 F 78 14 132/83 91 09/19/18 18:44 98.2 F 77 14 126/78 94 Intake and Output 09/20/18 09/20/18 09/20/18 07:59 15:59 23:59 Intake Total 1000 / 1000 1240 / 1240 Output Total 600 / 600 425 / 425 Balance 400 / 400 815 / 815 Intake: IV Fluids 1000 / 1000 1000 / 1000 0.45% Sodium Chloride 1000 Ml 1000 / 1000 1000 / 1000 1000 Ml 1,000 ML @ 75 mls/hr IVC .[id number] [facility] Rx#:[id number] Oral 240 / 240 Output: Catheter 600 / 600 425 / 425 Urethral (Nuñez) 600 / 600 Other: Meal Lunch Percent of Meal Consumed 20% - General Appearance General appearance: Present: well-nourished, frail EENT: Present: ATNC Neck: Present: supple Cardiology: Present: regular rate Integumentary: Present: warm and dry Neurologic: Present: confused Psychiatric: Present: mood/affect appropriate - Lab 09/20/18 06:12 09/20/18 06:12 Most recent lab results Calcium 11.1 mg/dL (8.6-10.3) H 09/20/18 06:12 Phosphorus 5.0 mg/dL (2.7-4.5) H 09/19/18 04:06 Magnesium 1.9 mg/dL (1.6-2.6) 09/18/18 00:18 Urine Sodium 82.6 mEq/L 09/18/18 11:08 Consult Discharge Plan - Plan Referrals: Braden Garibay MD [Primary Care Provider] -
[2018-09-21] MEDS: *HR* Heparin 5,000 UNIT/ML VIAL SQ SCH ×2 (06:06→17:08)
[2018-09-21] MEDS: Budesonide/Formoterol 160/4.5 1 PUFF INH IH SCH ×2 (07:31→21:09)
--- NOTE | 2018-09-21 07:53 | Internal Med Progress Note ---
<AlvinMychal - Last Filed: 09/21/18 13:32> Hospitalist Progress Note - Encounter Date of Encounter: 09/21/18 Time of Encounter: 07:51 - Subjective Interval History: Patient seen and examined resting comfortably in bed. Patient is awake and responds inappropriately to questions. Patient was hypoxic SpO2 87% on 2 L oxygen this morning. Chest x-ray ordered. Morning labs are slowly improving. IV fluids were held and Lasix IV 1 was given. Nephrology is following, appreciate their recommendations. - Exam Vitals: Temp Pulse Resp BP Pulse Ox 98.4 F 87 18 153/79 87 09/21/18 06:29 09/21/18 06:29 09/21/18 06:29 09/21/18 06:29 09/21/18 06:29 Exam: Gen: NAD, AAOx1, answers questions inappropriately HEENT: Normocephalic, atraumatic, dry mucous membranes, EOMI Neck: Supple, previous thyroidectomy scar Cardiac: RRR, no murmur, S1 and S2 present, No pedal edema Pulmonary: equal breath sounds bilaterally, symmetric chest expansion Abdomen: soft, non-tender, non-distended, bowel sounds present Skin: warm, dry, intact, no erythema. Neuro: no facial droop, symmetric strength bilaterally in LE's and UE's, no dysarthria Psych: Unable to assess secondary to mental status - Assessment and Plan (1) Pneumonia Current Visit: Yes Status: Acute Assessment and Plan: Patient was hypoxic SpO2 87% on 2 L oxygen this morning. Chest x-ray revealed increased bilateral airspace opacities and underlying diffuse interstitial opacities, potentially alveolar and interstitial edema or multifocal pneumonia. Small to moderate right and suspected trace left pleural effusions. IV fluids were held and Lasix IV 1 was given. Initial blood cultures show no growth to date. Repeat blood cultures are pending. Calculated Creatinine clearance is 23 Treat empirically with Zosyn (patient has a documented penicillin allergy but has tolerated Zosyn the past without issue). Pharmacy adjusted the Zosyn dose based on calculated creatinine clearance of 23. Urine Legionella and strep pneumo antigens are pending Encourage incentive spirometry once patient's mental status has improved. (2) UTI (urinary tract infection) Current Visit: Yes Status: Chronic Assessment and Plan: Asymptomatic Urine culture Proteus mirabilis (>10,000 CFU but not greater than 100K CFU) with sensitivity to Zosyn, ertapenem, and imipenem Patient has been seen by infectious disease in the past Given elevation in WBC, will treat empirically with Zosyn (patient has a documented penicillin allergy but has tolerated Zosyn the past without issue) (3) Acute metabolic encephalopathy Current Visit: Yes Status: Acute Assessment and Plan: Suspect secondary to hypercalcemia, ANISA, UTI, PNA, Flu, dehydration Continue to monitor for further improvement Patient may need her home Seroquel restarted if she becomes agitated (4) Hypercalcemia Current Visit: Yes Status: Acute Assessment and Plan: Calcium of 15.5 on presentation on 09/17/18 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 Lasix 20 mg IV 1 given Patient following up with kindergarten assistant after discharge (5) ANISA (acute kidney injury) Current Visit: Yes Status: Acute Assessment and Plan: ANISA on CKD with slow improvement from yesterday Baseline creatinine around 0.9 -1.7 Retroperitoneal U/S of kidneys and bladder demonstrates no evidence of hydronephrosis. Echogenic foci in the left kidney are favored to represent a nonobstructing calculi. Nuñez in place Avoid nephrotoxins Hold IVF today due to pulmonary edema, reevaluate tomorrow to see if IV fluids c an be restarted. Monitor I and O's Nephrology following, follow up with nephro upon d/c (6) Atrial fibrillation Current Visit: Yes Status: Chronic Assessment and Plan: Chronic atrial fibrillation, not on anticoagulation at home due to increased risk of bleeding compared to anticoagulation benefits. 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 No residual PTH function TSH 9.603 PTH <1.0 L Continue Synthroid (8) Constipation Current Visit: Yes Status: Acute Assessment and Plan: Treat underlying hypercalcemia as above Continue home stool softeners and laxatives Hold iron supplements (9) Protein calorie malnutrition Current Visit: No Status: Chronic Assessment and Plan: BMI 25.8, loss of subcutaneous fat, loss of muscle mass, temporal wasting Nutrition following, continue dietary supplements (10) Parkinson disease Current Visit: Yes Status: Chronic Assessment and Plan: Patient with known history of dementia with Parkinson's dementia Mental status improving but reportedly not at baseline per daughter in law and son (11) Influenza A Current Visit: Yes Status: Acute Assessment and Plan: Continue renally dosed Tamiflu for 5 days Continue droplet precautions. DVT Prophylaxis: Heparin subcutaneous - Time Spent with Patient Total time spent is greater than 50% in coordination of care (as documented) at patient's floor/unit and/or counseling patient: Internal Medicine: Result - Labs CBC & Chem 7: 09/21/18 09:14 09/21/18 09:14 Labs: Short CBC 09/20/18 Range/Units 06:12 Neutrophils # 3.9 (1.6-8.9) K/mcL - ABG Interpretation ABG results: PT/INR, D-dimer PT 11.3 Seconds (9.4-12.1) 09/18/18 15:58 - Pulse Oximetry Interpretation Digit-Finger Pulse Oximetry Readin (On 2 L of oxygen.) Actions taken: other (Increased oxygen) Consult Discharge Plan - Plan Referrals: Braden Garibay MD [Primary Care Provider] - <Francheska Peters - Last Filed: 09/21/18 15:11> Hospitalist Progress Note - Encounter Date of Encounter: 09/21/18 - Exam Vitals: Temp Pulse Resp BP Pulse Ox 98.3 F 77 15 133/93 92 09/21/18 14:10 09/21/18 14:10 09/21/18 14:10 09/21/18 14:10 09/21/18 14:10 - Assessment and Plan (1) Hypothyroidism Current Visit: Yes Status: Chronic (2) Atrial fibrillation Current Visit: Yes Status: Chronic (3) Protein calorie malnutrition Current Visit: No Status: Chronic (4) Pneumonia Current Visit: Yes Status: Acute (5) Constipation Current Visit: Yes Status: Acute (6) UTI (urinary tract infection) Current Visit: Yes Status: Chronic (7) Parkinson disease Current Visit: Yes Status: Chronic (8) ANISA (acute kidney injury) Current Visit: Yes Status: Acute (9) Hypercalcemia Current Visit: Yes Status: Acute (10) Acute metabolic encephalopathy Current Visit: Yes Status: Acute (11) Influenza A Current Visit: Yes Status: Acute - Time Spent with Patient Total time spent is greater than 50% in coordination of care (as documented) at patient's floor/unit and/or counseling patient: Internal Medicine: Result - Labs CBC & Chem 7: 09/21/18 09:14 09/21/18 09:14 Labs: Short CBC 09/21/18 Range/Units 09:14 WBC 10.8 D (4.3-11.1) K/mcL Hgb 11.3 L (11.5-15.4) g/dL Hct 35.6 (35.3-44.9) % Plt Count 78 L (140-400) K/mcL Neutrophils # 8.9 (1.6-8.9) K/mcL BMP 09/21/18 09:14 Sodium 139 Potassium 3.8 Chloride 111 H Carbon Dioxide 20 L BUN 58 H Creatinine 2.05 H Glucose 108 H Calcium 10.3 - ABG Interpretation ABG results: PT/INR, D-dimer PT 11.3 Seconds (9.4-12.1) 09/18/18 15:58 - Impressions Impressions Chest X-Ray 09/21/18 08:02 IMPRESSION: 1. Increased bilateral airspace opacities and underlying diffuse interstitial opacities, potentially alveolar and interstitial edema or multifocal pneumonia. 2. Small to moderate right and suspected trace left pleural effusions. D/ / Tc Zepeda MD / Tc Zepeda MD Interpreting Provider: Tc Zepeda MD - Attending Attestation I examined this patient and my medical decision-making was reviewed with the Resident Physician Dr Esquivel. I agree with the documented findings, disposition and treatment plan as described except to the extent set forth below. Ms Griffin is admitted with hypercalcemia with metabolic encephalopathy. Found to have influenza. She has recurrent UTIs and was found to have bacturia. Now that she is hydrated, suspected pna has become apparent on CXR Additionally now fluid overloaded on CXR alert, awake, no family at bedside. Interaactive and answers questions, though some not appropriate. Denies sob, cough, fevers, chills or chest pain. Denies bladder pain or pressure. RN at bedside notes she is alert and interactive and ate breakfast without incident She had o2 sats to upper 80s % last night. morning chest xray revealed possible opacities vs fluid-she is now being treated for both gen- awake, alert, appears stated age cv- reg rate and rhythm, normal s1,s2, no murmurs appreciated, no pitting le edema, no jvd lungs- + rhonchi, diminsihed bases, no wheezing, normal resp effort on O2 nc abd- soft, no apparent tenderness, no guarding or grimace, non distended, + bs neuro- awake, alert, CN grossly intact, follows commands, no focal neuro deficits, oriented to person 1. Acute encephalopathy, improving daily - multifactorial likely related to hypercalcemia, dehydration, dementia, sedating home meds and influenza, possible UTI and possible pna - cont to treat infection, hold sedating home meds 2. Dehydration - Inow appears overloaded, as d/w nephro hold ivfs and give lasix 3. Hypercalcemiaresolved with fluids - hold iv hydration, nephro following 4. ANISA on CKD improving- avoid nephro toxins, will treat possible uti given hisotry of recurrent MRDO UTIs in past, will require outpt nephro fu once dc'd for ckd 5. Elevated TSH in setting of hypothyroidism 2/2 thyroidectomy- recent outpt synthroid increase, tsh improved in last 3 weeks on chart review, no further adjustment as will see pcp for repeat testing of tsh once med change has had chance to take full effect in upcoming weeks 8. Chronic Afib, currently NSR- on NO AC at home, will not initiate here, cont home metoprolol 8. Influenza + - tamiflu and supportive care 9. As part of infectious work up Ucx sent- gnr >10,000 CFU but not greater than 100K CFU- sensitivities now back and MDRO proteus, old cxs and admits reviewed- given her hx will treat with zosyn (received in july) 10. Hypoxic resp failure- CXR with possible opacities that could indicate pna, given the severity of her dehydration pna may not have been apparent on admission cxr, now with sxs and XR findings will treat as possible pna with zosyn and attempt to confirm an organsims, IV lasix as above she is a bed hold at her [facility] and may return when medically ready <Mychal Esquivel - Last Filed: 09/21/18 13:32> (1) Pneumonia Qualifiers: Pneumonia type: due to unspecified organism Laterality: bilateral Lung location: unspecified part of lung Qualified Code(s): J18.9 - Pneumonia, unspecified organism (2) UTI (urinary tract infection) Qualifiers: Urinary tract infection type: site unspecified Hematuria presence: without hematuria Qualified Code(s): N39.0 - Urinary tract infection, site not specified (6) Atrial fibrillation Qualifiers: Atrial fibrillation type: chronic Qualified Code(s): I48.2 - Chronic atrial fibrillation (7) Hypothyroidism Qualifiers: Hypothyroidism type: postoperative Qualified Code(s): E89.0 - Postprocedural hypothyroidism (8) Constipation Qualifiers: Constipation type: other constipation type Qualified Code(s): K59.09 - Other constipation (9) Protein calorie malnutrition Qualifiers: Protein-calorie malnutrition severity: unspecified severity Qualified Code(s): E46 - Unspecified protein-calorie malnutrition <Francheska Peters - Last Filed: 09/21/18 15:11> (1) Hypothyroidism Qualifiers: Hypothyroidism type: postoperative Qualified Code(s): E89.0 - Postprocedural hypothyroidism (2) Atrial fibrillation Qualifiers: Atrial fibrillation type: chronic Qualified Code(s): I48.2 - Chronic atrial fibrillation (3) Protein calorie malnutrition Qualifiers: Protein-calorie malnutrition severity: unspecified severity Qualified Code(s): E46 - Unspecified protein-calorie malnutrition (4) Pneumonia Qualifiers: Pneumonia type: due to unspecified organism Laterality: bilateral Lung location: unspecified part of lung Qualified Code(s): J18.9 - Pneumonia, unspecified organism (5) Constipation Qualifiers: Constipation type: other constipation type Qualified Code(s): K59.09 - Other constipation (6) UTI (urinary tract infection) Qualifiers: Urinary tract infection type: site unspecified Hematuria presence: without hematuria Qualified Code(s): N39.0 - Urinary tract infection, site not specified
[2018-09-21] MEDS: Magnesium Oxide 400 MG TABLET PO SCH (09:03)
[2018-09-21] MEDS: Folic Acid 1 MG TABLET PO SCH (09:03)
[2018-09-21] MEDS: Carbidopa/Levodopa ER 50/200 TABLET PO SCH ×2 (09:03→21:31)
[2018-09-21] MEDS: Oseltamivir Phosphate 30 MG CAPSULE PO SCH (09:03)
[2018-09-21] MEDS: Azelastine 0.1% Nasal Spray 30 ML BOTTLE NS SCH ×2 (09:08→21:30)
[2018-09-21 09:23] LABS: Eosinophils % 0.3 %; Mean Corpuscular Volume 94.2 fL (83.0-100.0); Red Cell Distribution Width 15.9 % (11.5-14.5)
[2018-09-21 09:25] LABS: Basophils % 0.2 %; Hematocrit 35.6 % (35.3-44.9); Hemoglobin 11.3 g/dL (11.5-15.4); Immature Granulocytes % 1.6 % (0-4); Immature Platelets 17.3 % (1.1-6.1); Lymphocytes # 1.3 K/mcL (0.6-4.6); Lymphocytes % 12.1 %; Mean Corpuscular HGB Conc 31.7 g/dL (31.6-35.5); Mean Corpuscular Hemoglobin 29.9 pg (28.0-33.3); Monocytes # 0.3 K/mcL (0.0-1.3); Neutrophils # 8.9 K/mcL (1.6-8.9); Red Blood Count 3.78 M/mcL (3.82-4.97); Segmented Neutrophils % 82.8 %
[2018-09-21 09:29] LABS: Platelet Count 78 K/mcL (140-400)
[2018-09-21 09:30] LABS: Platelet Estimate Decreased (Normal)
[2018-09-21 09:38] LABS: Calcium 10.3 mg/dL (8.6-10.3); Potassium 3.8 mEq/L (3.5-5.1)
[2018-09-21] MEDS ORDERED: PIPERACILLIN IVPB SCH (12:00)
[2018-09-21] MEDS ORDERED: TAZOBACTAM IVPB SCH (12:00)
[2018-09-21] MEDS ORDERED: SODIUM CHLORIDE MINI 0.9% IVPB SCH (12:00)
--- NOTE | 2018-09-21 12:01 | Nephrology Progress Note ---
Date of Encounter: 09/21/18 Time of Encounter: 12:00 - Assessment and Plan (1) Hypercalcemia Current Visit: Yes Status: Acute Calcium normalized at 10.3 today which is great Continue to avoid high calcium diet Continue fluids, po acceptable (2) Acute kidney injury superimposed on CKD Current Visit: Yes Status: Acute SCr noted improving at 2.05, GFR 23, baseline GFr typically in the 30-40s UOP very good at 1825cc in the past 24hrs Continue to avoid nephrotoxins if possible (3) Metabolic encephalopathy Current Visit: Yes Status: Acute Per primary. (4) Dehydration, mild Current Visit: No Status: Acute Subjective Principal diagnosis: confusion Interval history: Interim noted, pt admitted with altered mental status and noted with severe hypercalcemia pekaing at 15.5 with ANISA responding to aggressive fluids. Pt seen and examined with family at bedside who are worried that pt is not yet at baseline mental statis with ppor po intake. Pt resting but easily awaken and responding appropriately to simple questions. Objective - Vital Signs Vital signs: Vital Signs Temp Pulse Resp BP Pulse Ox 09/21/18 10:38 98.5 F 74 19 156/89 95 09/21/18 08:07 90 09/21/18 06:29 98.4 F 87 18 153/79 87 09/21/18 04:30 97.9 F 90 26 157/92 92 09/20/18 23:03 98.2 F 88 18 159/99 91 09/20/18 19:50 98.9 F 84 18 150/95 91 Intake and Output 09/20/18 09/21/18 09/21/18 23:59 07:59 15:59 Intake Total 0 / 0 1000 / 1000 500 / 500 Output Total 800 / 800 500 / 500 300 / 300 Balance -800 / -800 500 / 500 200 / 200 Intake: IV Fluids 1000 / 1000 500 / 500 0.45% Sodium Chloride 1000 Ml 1000 / 1000 500 / 500 1000 Ml 1,000 ML @ 75 mls/hr IVC .[id number] [facility] Rx#:[id number] Oral 0 / 0 0 / 0 Output: Catheter 800 / 800 500 / 500 300 / 300 Other: Stool Size Moderate Large Moderate Stool Consistency formed soft formed formed Stool Color Brown Brown Hinds # Bowel Movement Diapers 1 1 - General Appearance General appearance: Present: chronically ill, fatigue, frail EENT: Present: ATNC, mucous membranes dry Neck: Present: no JVD, supple Respiratory: Present: course breath sounds Cardiology: Present: no edema, normal S1, normal S2 Gastrointestinal: Present: no tenderness, no guarding Integumentary: Present: no rash Neurologic: Present: disoriented Musculoskeletal: Present: no deformities Psychiatric: Present: cooperative - Lab 09/22/18 13:40 09/22/18 08:07 Most recent lab results Calcium 10.3 mg/dL (8.6-10.3) 09/21/18 09:14 Phosphorus 5.0 mg/dL (2.7-4.5) H 09/19/18 04:06 Magnesium 1.9 mg/dL (1.6-2.6) 09/18/18 00:18 Urine Sodium 82.6 mEq/L 09/18/18 11:08 Consult Discharge Plan - Plan Referrals: Braden Garibay MD [Primary Care Provider] -
[2018-09-21] MEDS ORDERED: Furosemide 20 MG/2 ML VIAL IVP ONE (12:25)
[2018-09-21] MEDS: Piperacillin/Tazobactam 3.375 GM in 0.9 % Sodium Chloride Mini Bag 100 ML IVPB SCH ×2 (12:58→23:46)
[2018-09-22] MEDS: *HR* Heparin 5,000 UNIT/ML VIAL SQ SCH ×2 (06:24→17:19)
[2018-09-22] MEDS: Budesonide/Formoterol 160/4.5 1 PUFF INH IH SCH ×2 (07:33→19:38)
[2018-09-22 08:19] LABS: Basophils % 0.4 %; Mean Platelet Volume 12.6 fL (9.4-12.4)
[2018-09-22 08:21] LABS: Eosinophils # 0.1 K/mcL (0.0-0.6); Eosinophils % 1.8 %; Hematocrit 31.8 % (35.3-44.9); Hemoglobin 9.9 g/dL (11.5-15.4); Immature Granulocytes % 2.1 % (0-4); Immature Platelets 7.9 % (1.1-6.1); Lymphocytes # 1.2 K/mcL (0.6-4.6); Lymphocytes % 21.4 %; Mean Corpuscular HGB Conc 31.1 g/dL (31.6-35.5); Mean Corpuscular Volume 96.4 fL (83.0-100.0); Monocytes # 0.3 K/mcL (0.0-1.3); Monocytes % 5.7 %; Neutrophils # 3.8 K/mcL (1.6-8.9); Segmented Neutrophils % 68.6 %
[2018-09-22 08:23] LABS: Platelet Count 87 K/mcL (140-400); Platelet Estimate Decreased (Normal)
[2018-09-22 08:39] LABS: Calcium 9.8 mg/dL (8.6-10.3); Magnesium 1.6 mg/dL (1.6-2.6); Phosphorous 3.3 mg/dL (2.7-4.5); Potassium 3.3 mEq/L (3.5-5.1)
[2018-09-22] MEDS: Carbidopa/Levodopa ER 50/200 TABLET PO SCH ×2 (09:04→20:27)
[2018-09-22] MEDS: Magnesium Oxide 400 MG TABLET PO SCH (09:04)
[2018-09-22] MEDS: Oseltamivir Phosphate 30 MG CAPSULE PO SCH (09:04)
[2018-09-22] MEDS: Folic Acid 1 MG TABLET PO SCH (09:04)
[2018-09-22] MEDS: Azelastine 0.1% Nasal Spray 30 ML BOTTLE NS SCH ×2 (09:08→20:27)
[2018-09-22] MEDS ORDERED: Potassium Chloride Elixir 20 MEQ/15 ML UDC PO ONE (09:31)
--- NOTE | 2018-09-22 09:36 | Internal Med Progress Note ---
<Francheska Peters - Last Filed: 09/22/18 13:19> Hospitalist Progress Note - Encounter Date of Encounter: 09/22/18 - Exam Vitals: Temp Pulse Resp BP Pulse Ox 97.7 F 62 15 124/75 99 09/22/18 11:54 09/22/18 11:54 09/22/18 11:54 09/22/18 11:54 09/22/18 11:54 - Assessment and Plan (1) Hypothyroidism Current Visit: Yes Status: Chronic (2) Atrial fibrillation Current Visit: Yes Status: Chronic (3) Protein calorie malnutrition Current Visit: No Status: Chronic (4) Pneumonia Current Visit: Yes Status: Acute (5) Constipation Current Visit: Yes Status: Acute (6) UTI (urinary tract infection) Current Visit: Yes Status: Chronic (7) Parkinson disease Current Visit: Yes Status: Chronic (8) ANISA (acute kidney injury) Current Visit: Yes Status: Acute (9) Hypercalcemia Current Visit: Yes Status: Acute (10) Acute metabolic encephalopathy Current Visit: Yes Status: Acute (11) Influenza A Current Visit: Yes Status: Acute - Time Spent with Patient Total time spent is greater than 50% in coordination of care (as documented) at patient's floor/unit and/or counseling patient: Internal Medicine: Result - Labs CBC & Chem 7: 09/22/18 08:07 09/22/18 08:07 Labs: Short CBC 09/22/18 Range/Units 08:07 WBC 5.6 (4.3-11.1) K/mcL Hgb 9.9 L (11.5-15.4) g/dL Hct 31.8 L (35.3-44.9) % Plt Count 87 L (140-400) K/mcL Neutrophils # 3.8 (1.6-8.9) K/mcL BMP 09/22/18 08:07 Sodium 142 Potassium 3.3 L Chloride 110 H Carbon Dioxide 26 BUN 58 H Creatinine 2.12 H Glucose 98 Calcium 9.8 - ABG Interpretation ABG results: PT/INR, D-dimer PT 11.3 Seconds (9.4-12.1) 09/18/18 15:58 Consult Discharge Plan - Plan Referrals: Braden Garibay MD [Primary Care Provider] - - Attending Attestation I examined this patient and my medical decision-making was reviewed with the Resident Physician Dr Esquivel. I agree with the documented findings, disposition and treatment plan as described except to the extent set forth below. Ms Griffin is admitted with hypercalcemia with metabolic encephalopathy. Found to have influenza. She has recurrent UTIs and was found to have bacturia. Now that she is hydra jaime, suspected pna has become apparent on CXR Additionally now fluid overloaded on CXR asleep, no family at bedside. She keeps her eyes closed throughout exam and mumbles but does not speak. She shakes head no when asked if pain or sob. Does not open her eyes when instructed but does follow command to move fingers and test senior tech manufacturing engineering strength. gen- asleep appears stated age cv- reg rate and rhythm, normal s1,s2, no murmurs appreciated, no pitting le edema, no jvd lungs- + rhonchi, diminished bases, no wheezing, normal resp effort on O2 nc abd- soft, no apparent tenderness, no guarding or grimace, non distended, + bs neuro- asleep, does not open eyes or speak but follows commands, CN grossly intact from what can be tested, follows commands to test senior tech manufacturing engineering strength 3/5 bl and , no focal neuro deficits 1. Acute encephalopathy, very slowly improving - multifactorial likely related to hypercalcemia, dehydration, dementia, sedating home meds and influenza, possible UTI and possible pna - cont to treat infection, hold sedating home meds 2. Dehydration -appeared overloaded yesterday, now creat again raising, ivfs as per nephro 3. Hypercalcemia, resolved with fluids - nephro following 4. ANISA on CKD worsening now- will treat possible uti given hisotry of recurrent MRDO UTIs in past, ivfs as per nephro, will require outpt nephro fu once dc'd for ckd 5. Elevated TSH in setting of hypothyroidism 2/2 thyroidectomy- recent outpt synthroid increase, tsh improved in last 3 weeks on chart review, no further adjustment as will see pcp for repeat testing of tsh once med change has had chance to take full effect in upcoming weeks 8. Chronic Afib, currently NSR- on NO AC at home, will not initiate here, cont home metoprolol 8. Influenza + - tamiflu and supportive care 9. As part of infectious work up Ucx sent- gnr >10,000 CFU but not greater than 100K CFU- sensitivities now back and MDRO proteus, old cxs and admits reviewed- given her hx will treat with zosyn (received in july) 10. Hypoxic resp failure, improving- CXR with possible opacities that could in dicate pna, given the severity of her dehydration pna may not have been apparent on admission cxr, now with sxs and XR findings will treat as possible pna with zosyn and attempt to confirm an organsims 11. Hypokalemia and lower than goal magnesium - oral K if can take, IV if cannot, Mag repleted IV she is a bed hold at her [facility] and may return when medically ready <Mychal Esquivel - Last Filed: 09/22/18 17:02> Hospitalist Progress Note - Encounter Date of Encounter: 09/22/18 Time of Encounter: 09:33 - Subjective Interval History: Patient seen and examined resting comfortably in bed eating breakfast with BIOINFORMATICS COMPUTER SCIENTIST's assistance at bedside. Patient is awake and responds inappropriately to questions. Patient's renal function has slowly worsened since IV Lasix yesterday. Lungs are clear today. IV fluids were restarted today. Nephrology is following, appreciate their recommendations. Case discussed with family at bedside. - Exam Vitals: Temp Pulse Resp BP Pulse Ox 97.6 F 70 18 134/83 97 09/22/18 07:02 09/22/18 07:02 09/22/18 07:02 09/22/18 07:02 09/22/18 07:02 Exam: Gen: NAD, AAOx1, answers questions inappropriately HEENT: Normocephalic, atraumatic, dry mucous membranes, EOMI Neck: Supple, previous thyroidectomy scar Cardiac: RRR, no murmur, S1 and S2 present, No pedal edema Pulmonary: equal breath sounds bilaterally, diminished in bilateral bases due to poor effort, symmetric chest expansion Abdomen: soft, non-tender, non-distended, bowel sounds present Skin: warm, dry, intact, no erythema. Neuro: no facial droop, symmetric strength bilaterally in LE's and UE's, no dysarthria Psych: Unable to assess secondary to mental status Extremities: no pedal edema. Intact range of motion, loss of subcutaneous fat, loss of muscle mass, temporal wasting - Assessment and Plan (1) ANISA (acute kidney injury) Current Visit: Yes Status: Acute Assessment and Plan: ANISA on CKD Baseline creatinine around 0.9 -1.7 Retroperitoneal U/S of kidneys and bladder demonstrates no evidence of hydronephrosis. Echogenic foci in the left kidney are favored to represent a nonobstructing calculi. Nuñez in place Avoid nephrotoxins Patient's renal function has slowly worsened since IV Lasix yesterday. Lungs are clear today. IV fluids were restarted today. Monitor I and O's Nephrology following, follow up with nephro upon d/c (2) Pneumonia Current Visit: Yes Status: Acute Assessment and Plan: Patient was hypoxic SpO2 87% on 2 L oxygen. Chest x-ray revealed increased bilateral airspace opacities and underlying diffuse interstitial opacities, potentially alveolar and interstitial edema or multifocal pneumonia. Small to moderate right and suspected trace left pleural effusions. IV fluids were held and Lasix IV 1 was given. Initial blood cultures show no growth to date. Repeat blood cultures are pending. Calculated Creatinine clearance is 23 Treat empirically with Zosyn (patient has a documented penicillin allergy but has tolerated Zosyn the past without issue). Pharmacy adjusted the Zosyn dose based on calculated creatinine clearance of 23. EPIV was inserted due to limited IV access. Urine Legionella and strep pneumo antigens are negative. MRSA nasal swab was negative on 08/28/18 Encourage incentive spirometry once patient's mental status has improved. Wean oxygen as tolerated. (3) UTI (urinary tract infection) Current Visit: Yes Status: Chronic Assessment and Plan: Asymptomatic Urine culture Proteus mirabilis (>10,000 CFU but not greater than 100K CFU) with sensitivity to Zosyn, ertapenem, and imipenem Patient has been seen by infectious disease in the past Given elevation in WBC, will treat empirically with Zosyn (patient has a documented penicillin allergy but has tolerated Zosyn the past without issue) (4) Influenza A Current Visit: Yes Status: Acute Assessment and Plan: Continue renally dosed Tamiflu for 5 days Continue droplet precautions. 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 Patient following up with supervisor of research after discharge (7) Atrial fibrillation Current Visit: Yes Status: Chronic Assessment and Plan: Chronic atrial fibrillation, not on anticoagulation at home due to increased risk of bleeding compared to anticoagulation benefits. 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 No residual PTH function TSH 9.603 PTH <1.0 L Continue Synthroid (9) Constipation Current Visit: Yes Status: Acute Assessment and Plan: Treat underlying hypercalcemia as above Continue home stool softeners and laxatives Hold iron supplements (10) Protein calorie malnutrition Current Visit: No Status: Chronic Assessment and Plan: BMI 25.8, loss of subcutaneous fat, loss of muscle mass, temporal wasting Nutrition following, continue dietary supplements (11) Parkinson disease Current Visit: Yes Status: Chronic Assessment and Plan: Patient with known history of dementia with Parkinson's dementia Mental status improving but reportedly not at baseline per daughter in law and son (12) Anemia Current Visit: Yes Status: Chronic Assessment and Plan: Anemia, chronic. Repeat hemoglobin level is stable. No signs of active bleeding. Continue monitoring (13) Hypokalemia Current Visit: Yes Status: Acute Assessment and Plan: Supplemented potassium. Continue monitoring. (14) Hypomagnesemia Current Visit: Yes Status: Acute Assessment and Plan: Supplemented magnesium. Continue monitoring. DVT Prophylaxis: Heparin SQ - Time Spent with Patient Total time spent is greater than 50% in coordination of care (as documented) at patient's floor/unit and/or counseling patient: Internal Medicine: Result - Labs CBC & Chem 7: 09/22/18 13:40 09/22/18 08:07 Labs: Short CBC 09/22/18 Range/Units 08:07 WBC 5.6 (4.3-11.1) K/mcL Hgb 9.9 L (11.5-15.4) g/dL Hct 31.8 L (35.3-44.9) % Plt Count 87 L (140-400) K/mcL Neutrophils # 3.8 (1.6-8.9) K/mcL BMP 09/21/18 09/22/18 09:14 08:07 Sodium 139 142 Potassium 3.8 3.3 L Chloride 111 H 110 H Carbon Dioxide 20 L 26 BUN 58 H 58 H Creatinine 2.05 H 2.12 H Glucose 108 H 98 Calcium 10.3 9.8 - ABG Interpretation ABG results: PT/INR, D-dimer PT 11.3 Seconds (9.4-12.1) 09/18/18 15:58 <Francheska Peters - Last Filed: 09/22/18 13:19> (1) Hypothyroidism Qualifiers: Hypothyroidism type: postoperative Qualified Code(s): E89.0 - Postprocedural hypothyroidism (2) Atrial fibrillation Qualifiers: Atrial fibrillation type: chronic Qualified Code(s): I48.2 - Chronic atrial fibrillation (3) Protein calorie malnutrition Qualifiers: Protein-calorie malnutrition severity: unspecified severity Qualified Code(s): E46 - Unspecified protein-calorie malnutrition (4) Pneumonia Qualifiers: Pneumonia type: due to unspecified organism Laterality: bilateral Lung location: unspecified part of lung Qualified Code(s): J18.9 - Pneumonia, unspecified organism (5) Constipation Qualifiers: Constipation type: other constipation type Qualified Code(s): K59.09 - Other constipation (6) UTI (urinary tract infection) Qualifiers: Urinary tract infection type: site unspecified Hematuria presence: without hematuria Qualified Code(s): N39.0 - Urinary tract infection, site not specified <Mychal Esquivel - Last Filed: 09/22/18 17:02> (2) Pneumonia Qualifiers: Pneumonia type: due to unspecified organism Laterality: bilateral Lung location: unspecified part of lung Qualified Code(s): J18.9 - Pneumonia, unspecified organism (3) UTI (urinary tract infection) Qualifiers: Urinary tract infection type: site unspecified Hematuria presence: without hematuria Qualified Code(s): N39.0 - Urinary tract infection, site not specified (7) Atrial fibrillation Qualifiers: Atrial fibrillation type: chronic Qualified Code(s): I48.2 - Chronic atrial f ibrillation (8) Hypothyroidism Qualifiers: Hypothyroidism type: postoperative Qualified Code(s): E89.0 - Postprocedural hypothyroidism (9) Constipation Qualifiers: Constipation type: other constipation type Qualified Code(s): K59.09 - Other constipation (10) Protein calorie malnutrition Qualifiers: Protein-calorie malnutrition severity: unspecified severity Qualified Code(s): E46 - Unspecified protein-calorie malnutrition (12) Anemia Qualifiers: Anemia type: other cause Other causes of anemia: chronic disease, other Qualified Code(s): D63.8 - Anemia in other chronic diseases classified elsewhere
[2018-09-22] MEDS: Piperacillin/Tazobactam 3.375 GM in 0.9 % Sodium Chloride Mini Bag 100 ML IVPB SCH ×2 (11:34→23:46)
[2018-09-22 14:11] LABS: Hematocrit 31.8 % (35.3-44.9); Hemoglobin 10.3 g/dL (11.5-15.4)
--- NOTE | 2018-09-22 18:55 | Nephrology Progress Note ---
Date of Encounter: 09/22/18 Time of Encounter: 14:00 - Assessment and Plan (1) Hypercalcemia Current Visit: Yes Status: Acute Calcium neil to 9.8 which is great but does not seems to affect mental status Unable to have much po fluids, agree with resuming 1/2NS Continue low calcium diet (2) Acute kidney injury superimposed on CKD Current Visit: Yes Status: Acute SCr worse at 2.12, GFR 22 after NS stopped and iv lasix given for resp distress yesterday Uop noted at 2025cc in the past 24hrs 1/2NS resumed should hopefully help Continue to avoid nephrology if possible (3) Metabolic encephalopathy Current Visit: Yes Status: Acute Per primary. (4) Dehydration, mild Current Visit: No Status: Acute Subjective Principal diagnosis: confusion Interval history: Pt seen and examined with no family member at bedside. Pt resting but arousable to disoriented Objective - Vital Signs Vital signs: Vital Signs Temp Pulse Resp BP Pulse Ox 09/22/18 14:12 97.4 F L 67 15 113/85 98 09/22/18 11:54 97.7 F 62 15 124/75 99 09/22/18 07:02 97.6 F 70 18 134/83 97 09/22/18 06:27 95 09/22/18 06:26 98 09/22/18 03:37 97.7 F 71 19 145/95 99 09/21/18 23:23 98.9 F 66 15 143/93 94 09/21/18 21:25 1 09/21/18 20:40 98.3 F 68 15 113/72 95 Intake and Output 09/22/18 09/22/18 09/22/18 07:59 15:59 23:59 Intake Total 100 / 100 740 / 740 0 / 0 Output Total 650 / 650 400 / 400 200 / 200 Balance -550 / -550 340 / 340 -200 / -200 Intake: IV Fluids 100 / 100 Zosyn 3.375 GM In 0.9 % Sodium 100 / 100 Chloride (Mini-Bag +) 100 ML @ 25 mls/hr IVPB Q[facility]H [facility] Rx#: [id number] Oral 0 / 0 740 / 740 0 / 0 Output: Urine 0 / 0 Catheter 650 / 650 400 / 400 200 / 200 Other: Meal Lunch Dinner Percent of Meal Consumed 10% 0% Blood Glucose* 84 - General Appearance General appearance: Present: chronically ill, fatigue, frail EENT: Present: ATNC, mucous membranes dry Neck: Present: no JVD, supple Respiratory: Present: course breath sounds Cardiology: Present: no edema, normal S1, normal S2 Gastrointestinal: Present: no tenderness, no guarding Integumentary: Present: warm and dry Neurologic: Present: disoriented Musculoskeletal: Present: no deformities Psychiatric: Present: cooperative - Lab 09/22/18 13:40 09/22/18 08:07 Most recent lab results Calcium 9.8 mg/dL (8.6-10.3) 09/22/18 08:07 Phosphorus 3.3 mg/dL (2.7-4.5) 09/22/18 08:07 Magnesium 1.6 mg/dL (1.6-2.6) 09/22/18 08:07 Urine Sodium 82.6 mEq/L 09/18/18 11:08 Consult Discharge Plan - Plan Referrals: Braden Garibay MD [Primary Care Provider] -
[2018-09-23] MEDS: *HR* Heparin 5,000 UNIT/ML VIAL SQ SCH ×2 (05:52→17:23)
[2018-09-23 07:26] LABS: Basophils % 0.4 %; Eosinophils # 0.1 K/mcL (0.0-0.6); Eosinophils % 2.6 %; Hematocrit 31.4 % (35.3-44.9); Hemoglobin 9.6 g/dL (11.5-15.4); Immature Granulocytes % 1.8 % (0-4); Lymphocytes % 21.6 %; Mean Corpuscular HGB Conc 30.6 g/dL (31.6-35.5); Mean Corpuscular Hemoglobin 29.8 pg (28.0-33.3); Mean Corpuscular Volume 97.5 fL (83.0-100.0); Mean Platelet Volume 12.3 fL (9.4-12.4); Monocytes # 0.2 K/mcL (0.0-1.3); Monocytes % 5.3 %; Neutrophils # 3.1 K/mcL (1.6-8.9); Platelet Count 90 K/mcL (140-400); Red Blood Count 3.22 M/mcL (3.82-4.97); Red Cell Distribution Width 15.9 % (11.5-14.5); Segmented Neutrophils % 68.3 %
[2018-09-23 07:28] LABS: Immature Platelets 9.1 % (1.1-6.1)
[2018-09-23 07:47] LABS: Calcium 9.2 mg/dL (8.6-10.3); Potassium 3.4 mEq/L (3.5-5.1)
[2018-09-23] MEDS: Budesonide/Formoterol 160/4.5 1 PUFF INH IH SCH ×2 (08:03→21:11)
[2018-09-23 08:30] LABS: Platelet Estimate Decreased (Normal)
--- NOTE | 2018-09-23 09:09 | Internal Med Progress Note ---
<Seth Rowe - Last Filed: 09/23/18 17:16> Hospitalist Progress Note - Encounter Date of Encounter: 09/23/18 Time of Encounter: 09:05 - Subjective Interval History: Patient is asleep and resting comfortably upon entering the room. Patient responds to her name being called but answers questions inappropriately. During exam she states I am just going to sleep now. At this point she no longer acknowledged me being in the room and layed there with her eyes closed but followed commands. - Exam Vitals: Temp Pulse Resp BP Pulse Ox 98.7 F 93 18 149/84 96 09/23/18 06:44 09/23/18 06:44 09/23/18 06:44 09/23/18 06:44 09/23/18 06:44 Exam: Gen: NAD, AAOx1, answers questions inappropriately HEENT: Normocephalic, atraumatic, dry mucous membranes, EOMI Neck: Supple, previous thyroidectomy scar Cardiac: RRR, no murmur, no rubs, no gallops, S1 and S2+, No pedal edema Pulmonary: +rhonchi bilaterally, diminished in bases, symmetric chest expansion, no wheezes Abdomen: soft, non-tender, non-distended, +bowel sounds Skin: warm, dry, intact, no erythema. Neuro: no facial droop, symmetric strength bilaterally UE's (patient would not do LE testing), no dysarthria Psych: Unable to assess secondary to mental status Extremities: no pedal edema. Intact range of motion, loss of subcutaneous fat, loss of muscle mass, temporal wasting : 300 mL of light yellow urine in silva - Assessment and Plan (1) Pneumonia Current Visit: Yes Status: Acute Assessment and Plan: Chest x-ray revealed increased bilateral airspace opacities and underlying diffuse interstitial opacities, potentially alveolar and interstitial edema or multifocal pneumonia. Small to moderate right and suspected trace left pleural effusions. Initial blood cultures show no growth to date. Repeat blood cultures are pending. Calculated Creatinine clearance is 23 Continue treating empirically with Zosyn (patient has a documented penicillin allergy but has tolerated Zosyn in the past) Pharmacy adjusted the Zosyn dose based on calculated creatinine clearance of 23. EPIV was inserted due to limited IV access. Urine Legionella and strep pneumo antigens are negative. MRSA nasal swab was negative on 08/28/18 Encourage incentive spirometry once patient's mental status has improved. Wean oxygen as tolerated. (2) UTI (urinary tract infection) Current Visit: Yes Status: Chronic Assessment and Plan: Asymptomatic Urine culture Proteus mirabilis (>10,000 CFU but not greater than 100K CFU) Continue treating empirically with Zosyn (patient has a documented penicillin allergy but has tolerated Zosyn the past without issue) (3) Influenza A Current Visit: Yes Status: Acute Assessment and Plan: Continue Tamiflu day 12/15 (4) Acute kidney injury superimposed on CKD Current Visit: Yes Status: Acute Assessment and Plan: Baseline creatinine around 0.9 -1.7 Retroperitoneal U/S of kidneys and bladder demonstrates no evidence of hydronephrosis. Echogenic foci in the left kidney are favored to represent a nonobstructing calculi. Silva in place Avoid nephrotoxins Patient's renal function slowly worsened from IV Lasix on 09/21 as evidence by Cr of 2.12 on 09/22. Cr improved to 1.82 today. 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 Assessment and Plan: See above hypercalcemia (7) Acute metabolic encephalopathy Current Visit: Yes Status: Acute Assessment and Plan: Suspect secondary to hypercalcemia, ANISA, UTI, PNA, Flu, dehydration Continue to monitor for further improvement Patient may need her home Seroquel restarted if she becomes agitated Consider CT head if patient's mental status does not improve (8) Atrial fibrillation Current Visit: Yes Status: Chronic Assessment and Plan: Chronic atrial fibrillation, not on anticoagulation at home due to risk outweighing benefit Currently Rate controlled, continue home beta dong and monitor (9) Constipation Current Visit: Yes Status: Acute Assessment and Plan: Treat underlying hypercalcemia as above Continue home stool softeners and laxatives Hold iron supplements (10) Parkinson disease Current Visit: Yes Status: Chronic Assessment and Plan: Patient with known history of dementia with Parkinson's dementia Mental status improving but reportedly not at baseline per daughter in law and son (11) Dehydration Current Visit: Yes Status: Acute Assessment and Plan: Cr decling today, continue IVF, nephro following (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 - No residual PTH function - 09/18/18 TSH, 9.603 -09/18/18 PTH, <1.0 L (16) Hypoparathyroidism Current Visit: Yes Status: Chronic Assessment and Plan: see above hypothyroid (17) DVT prophylaxis Current Visit: Yes Status: Acute Assessment and Plan: SubQ heparin (18) Hypokalemia Current Visit: Yes Status: Acute Assessment and Plan: Potassium is 3.4 today Oral supplement potassium and redraw labs tomorrow - Time Spent with Patient Total time spent is greater than 50% in coordination of care (as documented) at patient's floor/unit and/or counseling patient: Internal Medicine: Result - Labs CBC & Chem 7: 09/23/18 07:03 09/23/18 07:03 Labs: Short CBC 09/22/18 09/23/18 Range/Units 13:40 07:03 WBC 4.5 (4.3-11.1) K/mcL Hgb 10.3 L 9.6 L (11.5-15.4) g/dL Hct 31.8 L 31.4 L (35.3-44.9) % Plt Count 90 L (140-400) K/mcL Neutrophils # 3.1 (1.6-8.9) K/mcL BMP 09/23/18 07:03 Sodium 146 H Potassium 3.4 L Chloride 112 H Carbon Dioxide 25 BUN 50 H Creatinine 1.82 H Glucose 87 Calcium 9.2 - ABG Interpretation ABG results: PT/INR, D-dimer PT 11.3 Seconds (9.4-12.1) 09/18/18 15:58 Consult Discharge Plan - Plan Referrals: Braden Garibay MD [Primary Care Provider] - <Francheska Peters - Last Filed: 09/23/18 19:17> Hospitalist Progress Note - Encounter Date of Encounter: 09/23/18 - Exam Vitals: Temp Pulse Resp BP Pulse Ox 97.7 F 68 16 125/83 99 09/23/18 15:40 09/23/18 15:40 09/23/18 15:40 09/23/18 15:40 09/23/18 15:40 - Assessment and Plan (1) Hypothyroidism Current Visit: Yes Status: Chronic (2) Atrial fibrillation Current Visit: Yes Status: Chronic (3) Protein calorie malnutrition Current Visit: No Status: Chronic (4) Pneumonia Current Visit: Yes Status: Acute (5) Constipation Current Visit: Yes Status: Acute (6) UTI (urinary tract infection) Current Visit: Yes Status: Chronic (7) Parkinson disease Current Visit: Yes Status: Chronic (8) ANISA (acute kidney injury) Current Visit: Yes Status: Acute (9) Hypercalcemia Current Visit: Yes Status: Acute (10) Acute metabolic encephalopathy Current Visit: Yes Status: Acute (11) Influenza A Current Visit: Yes Status: Acute - Time Spent with Patient Total time spent is greater than 50% in coordination of care (as documented) at patient's floor/unit and/or counseling patient: Internal Medicine: Result - Labs CBC & Chem 7: 09/23/18 07:03 09/23/18 07:03 Labs: Short CBC 09/23/18 Range/Units 07:03 WBC 4.5 (4.3-11.1) K/mcL Hgb 9.6 L (11.5-15.4) g/dL Hct 31.4 L (35.3-44.9) % Plt Count 90 L (140-400) K/mcL Neutrophils # 3.1 (1.6-8.9) K/mcL BMP 09/23/18 07:03 Sodium 146 H Potassium 3.4 L Chloride 112 H Carbon Dioxide 25 BUN 50 H Creatinine 1.82 H Glucose 87 Calcium 9.2 - ABG Interpretation ABG results: PT/INR, D-dimer PT 11.3 Seconds (9.4-12.1) 09/18/18 15:58 - Attending Attestation The history, physical exam, and medical decision making was performed by the medical student Jae either while I was physically present and actively involved or I personally re-performed the exam and medical decision making. I have verified the accuracy of the medical student's documentation with regards to the history, physical exam findings, and medical decision making. Ms Griffin is admitted with hypercalcemia with metabolic encephalopathy. Found to have influenza. She has recurrent UTIs and was found to have bacturia. Now that she is hydrated, suspected pna has become apparent on CXR asleep, awakes to name, family present and fully updated pt answers questions, denies pain, sob admits to cough family notes limited oral intake gen- asleep, awakes to name, appears stated age cv- reg rate and rhythm, normal s1,s2, no murmurs appreciated, no pitting le edema, no jvd lungs- ctabl no wheezing, rhonchi or crackles normal resp effort on O2 nc abd- soft, no apparent tenderness, no guarding or grimace, non distended, + bs neuro- awake, CN grossly intact follows commands to test employee communications coordinator strength 4/5 bl and , no focal neuro deficits 1. Acute encephalopathy, very slowly improving - multifactorial likely related to hypercalcemia, dehydration, dementia, sedating home meds and influenza, possible UTI and possible pna - cont to treat infection, hold sedating home meds 2. Dehydration/Hypernatremia -ivfs as per nephro 3. Hypercalcemia, resolved with fluids - nephro following 4. ANISA on CKD - will treat possible uti given hisotry of recurrent MRDO UTIs in past, ivfs as per nephro, will require outpt nephro fu once dc'd for ckd 5. Elevated TSH in setting of hypothyroidism 2/2 thyroidectomy- recent outpt synthroid increase, tsh improved in last 3 weeks on chart review, no further adjustment as will see pcp for repeat testing of tsh once med change has had chance to take full effect in upcoming weeks 8. Chronic Afib, currently NSR- on NO AC at home, will not initiate here, cont home metoprolol 8. Influenza + - tamiflu course now complete and supportive care 9. As part of infectious work up Ucx sent- gnr >10,000 CFU but not greater than 100K CFU- sensitivities now back and MDRO proteus, old cxs and admits reviewed- given her hx will treat with zosyn (received in july) 10. Hypoxic resp failure, improving- CXR with possible opacities that could indicate pna, given the severity of her dehydration pna may not have been apparent on admission cxr, now with sxs and XR findings will treat as possible pna with zosyn and attempt to confirm an organsims she is a bed hold at her [facility] and may return when medically ready <Seth Rowe - Last Filed: 09/23/18 17:16> (1) Pneumonia Qualifiers: Pneumonia type: due to unspecified organism Laterality: bilateral Lung location: unspecified part of lung Qualified Code(s): J18.9 - Pneumonia, unspecified organism (2) UTI (urinary tract infection) Qualifiers: Urinary tract infection type: site unspecified Hematuria presence: without hematuria Qualified Code(s): N39.0 - Urinary tract infection, site not specified (8) Atrial fibrillation Qualifiers: Atrial fibrillation type: chronic Qualified Code(s): I48.2 - Chronic atrial fibrillation (9) Constipation Qualifiers: Constipation type: other constipation type Qualified Code(s): K59.09 - Other constipation (13) Anemia Qualifiers: Anemia type: other cause Other causes of anemia: chronic disease, other Qualified Code(s): D63.8 - Anemia in other chronic diseases classified elsewhere (14) Dementia Qualifiers: Dementia type: Parkinson's disease Dementia behavioral disturbance: without behavioral disturbance Qualified Code(s): G20 - Parkinson's disease; F02.80 - Dementia in other diseases classified elsewhere without behavioral disturbance (15) Hypothyroidism Qualifiers: Hypothyroidism type: postoperative Qualified Code(s): E89.0 - Postprocedural hypothyroidism (16) Hypoparathyroidism Qualifiers: Hypoparathyroidism type: other hypoparathyroidism Qualified Code(s): E20.8 - Other hypoparathyroidism <Francheska Peters - Last Filed: 09/23/18 19:17> (1) Hypothyroidism Qualifiers: Hypothyroidism type: postoperative Qualified Code(s): E89.0 - Postprocedural hypothyroidism (2) Atrial fibrillation Qualifiers: Atrial fibrillation type: chronic Qualified Code(s): I48.2 - Chronic atrial fibrillation (3) Protein calorie malnutrition Qualifiers: Protein-calorie malnutrition severity: unspecified severity Qualified Code(s): E46 - Unspecified protein-calorie malnutrition (4) Pneumonia Qualifiers: Pneumonia type: due to unspecified organism Laterality: bilateral Lung location: unspecified part of lung Qualified Code(s): J18.9 - Pneumonia, unspecified organism (5) Constipation Qualifiers: Constipation type: other constipation type Qualified Code(s): K59.09 - Other constipation (6) UTI (urinary tract infection) Qualifiers: Urinary tract infection type: site unspecified Hematuria presence: without hematuria Qualified Code(s): N39.0 - Urinary tract infection, site not specified
[2018-09-23] MEDS: Oseltamivir Phosphate 30 MG CAPSULE PO SCH (10:19)
[2018-09-23] MEDS: Magnesium Oxide 400 MG TABLET PO SCH (10:19)
[2018-09-23] MEDS: Carbidopa/Levodopa ER 50/200 TABLET PO SCH ×2 (10:19→21:12)
[2018-09-23] MEDS: Folic Acid 1 MG TABLET PO SCH (10:19)
[2018-09-23] MEDS: Azelastine 0.1% Nasal Spray 30 ML BOTTLE NS SCH ×2 (10:20→21:12)
[2018-09-23] MEDS: Piperacillin/Tazobactam 3.375 GM in 0.9 % Sodium Chloride Mini Bag 100 ML IVPB SCH (12:37)
[2018-09-23] MEDS ORDERED: Potassium Chloride Elixir 20 MEQ/15 ML UDC PO ONE (18:27)
--- NOTE | 2018-09-23 18:33 | Nephrology Progress Note ---
Date of Encounter: 09/23/18 Time of Encounter: 18:33 - Assessment and Plan (1) Dehydration, mild Current Visit: No Status: Acute (2) Metabolic encephalopathy Current Visit: Yes Status: Acute (3) Hypercalcemia Current Visit: Yes Status: Acute (4) Acute kidney injury superimposed on CKD Current Visit: Yes Status: Acute Subjective Principal diagnosis: confusion Interval history: Patient seen. She remains confused. ROS is unobtainable. Objective - Vital Signs Vital signs: Vital Signs Temp Pulse Resp BP Pulse Ox 09/23/18 15:40 97.7 F 68 16 125/83 99 09/23/18 10:59 98.7 F 79 18 150/99 98 09/23/18 10:20 98 09/23/18 06:44 98.7 F 93 18 149/84 96 09/23/18 04:59 97.6 F 80 18 140/90 97 09/22/18 23:47 97.2 F L 65 18 133/85 95 09/22/18 20:18 1 09/22/18 20:13 97.5 F L 65 14 150/89 97 Intake and Output 09/23/18 09/23/18 09/23/18 07:59 15:59 23:59 Intake Total 100 / 100 100 / 100 Output Total 650 / 650 Balance 100 / 100 -650 / -650 100 / 100 Intake: IV Fluids 100 / 100 100 / 100 Zosyn 3.375 GM In 0.9 % Sodium 100 / 100 100 / 100 Chloride (Mini-Bag +) 100 ML @ 25 mls/hr IVPB Q12H [facility] Rx#: [id number] Output: Catheter 650 / 650 Other: Meal Breakfast Percent of Meal Consumed 5% Weight 70.6 kg Patient Weight 09/23/18 23:59 Weight 70.6 kg - Lab 09/23/18 07:03 09/23/18 07:03 Most recent lab results Calcium 9.2 mg/dL (8.6-10.3) 09/23/18 07:03 Phosphorus 3.3 mg/dL (2.7-4.5) 09/22/18 08:07 Magnesium 2.0 mg/dL (1.6-2.6) 09/23/18 07:03 Urine Sodium 82.6 mEq/L 09/18/18 11:08 Consult Discharge Plan - Plan Referrals: Braden Garibay MD [Primary Care Provider] -
[2018-09-24] MEDS: Piperacillin/Tazobactam 3.375 GM in 0.9 % Sodium Chloride Mini Bag 100 ML IVPB SCH ×2 (00:07→12:27)
[2018-09-24] MEDS: *HR* Heparin 5,000 UNIT/ML VIAL SQ SCH ×2 (05:47→18:34)
[2018-09-24 06:16] LABS: Eosinophils % 2.7 %; Red Blood Count 3.19 M/mcL (3.82-4.97)
[2018-09-24 06:18] LABS: Basophils % 0.7 %; Eosinophils # 0.1 K/mcL (0.0-0.6); Hematocrit 30.9 % (35.3-44.9); Hemoglobin 9.5 g/dL (11.5-15.4); Immature Platelets 9.1 % (1.1-6.1); Lymphocytes # 0.9 K/mcL (0.6-4.6); Lymphocytes % 20.2 %; Mean Corpuscular HGB Conc 30.7 g/dL (31.6-35.5); Mean Corpuscular Hemoglobin 29.8 pg (28.0-33.3); Mean Corpuscular Volume 96.9 fL (83.0-100.0); Mean Platelet Volume 13.4 fL (9.4-12.4); Monocytes # 0.2 K/mcL (0.0-1.3); Monocytes % 5.5 %; Platelet Count 100 K/mcL (140-400); Red Cell Distribution Width 15.8 % (11.5-14.5); Segmented Neutrophils % 68.9 %
[2018-09-24 06:35] LABS: Calcium 8.8 mg/dL (8.6-10.3); Potassium 3.2 mEq/L (3.5-5.1)
[2018-09-24] MEDS: Budesonide/Formoterol 160/4.5 1 PUFF INH IH SCH ×2 (07:45→19:40)
--- NOTE | 2018-09-24 10:08 | Internal Med Progress Note ---
<Seth Rowe - Last Filed: 09/24/18 15:26> Hospitalist Progress Note - Encounter Date of Encounter: 09/24/18 Time of Encounter: 10:06 - Subjective Interval History: Patient is awake and resting comfortably upon entering the room. Patient responds to her name being called but answers questions inappropriately. Patient is pleasant during exam and states she does not know where she is but they gave her lunch. - Exam Vitals: Temp Pulse Resp BP Pulse Ox 97.9 F 73 15 146/84 95 09/24/18 08:03 09/24/18 08:03 09/24/18 08:03 09/24/18 08:03 09/24/18 08:03 Exam: Gen: NAD, AAOx1, answers questions inappropriately HEENT: Normocephalic, atraumatic, dry mucous membranes, EOMI Neck: Supple, previous thyroidectomy scar Cardiac: RRR, no murmur, no rubs, no gallops, S1 and S2+, No pedal edema Pulmonary: CTA B/l, symmetric chest expansion, no wheezes Abdomen: soft, non-tender, non-distended, +bowel sounds Skin: warm, dry, intact, no erythema. Neuro: no facial droop, symmetric strength bilaterally UE's (patient would not do LE testing), no dysarthria Psych: Unable to assess secondary to mental status Extremities: no pedal edema. Intact range of motion, loss of subcutaneous fat, loss of muscle mass, temporal wasting - Assessment and Plan (1) Pneumonia Current Visit: Yes Status: Acute Assessment and Plan: Chest x-ray revealed increased bilateral airspace opacities and underlying diffuse interstitial opacities, potentially alveolar and interstitial edema or multifocal pneumonia. Small to moderate right and suspected trace left pleural effusions. Initial blood cultures show no growth to date. Repeat blood cultures are pending. Continue treating empirically with Zosyn (patient has a documented penicillin allergy but has tolerated Zosyn in the past) Pharmacy adjusted the Zosyn dose based on calculated creatinine clearance of 23. EPIV was inserted due to limited IV access. Urine Legionella and strep pneumo antigens are negative. MRSA nasal swab was negative on 08/28/18 Encourage incentive spirometry Wean oxygen as tolerated. (2) UTI (urinary tract infection) Current Visit: Yes Status: Chronic Assessment and Plan: Asymptomatic Urine culture Proteus mirabilis (>10,000 CFU but not greater than 100K CFU) Continue treating empirically with Zosyn (patient has a documented penicillin allergy but has tolerated Zosyn the past without issue) (3) Hypokalemia Current Visit: Yes Status: Acute Assessment and Plan: Potassium 3.2 today, 3.4 yesterday 60mg potassium chloride elixir PO one time Check tomorrow (4) Acute kidney injury superimposed on CKD Current Visit: Yes Status: Acute Assessment and Plan: Baseline creatinine around 0.9 -1.7 Retroperitoneal U/S of kidneys and bladder demonstrates no evidence of hydronephrosis. Echogenic foci in the left kidney are favored to represent a nonobstructing calculi. Nuñez in place Avoid nephrotoxins Patient's renal function slowly worsened from IV Lasix on 09/21 as evidence by Cr of 2.12 on 09/22. Cr improved to 1.67 today. Encourage patient to consciously increase liquids PO Monitor I and O's Nephrology following, follow up with nephro upon d/c (5) Influenza A Current Visit: Yes Status: Acute Assessment and Plan: Tamiflu has been completed. 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 Assessment and Plan: see above hypercalcemia (8) Acute metabolic encephalopathy Current Visit: Yes Status: Acute Assessment and Plan: Suspect secondary to hypercalcemia, ANISA, UTI, PNA, Flu, dehydration Continue to monitor for further improvement Patient may need her home Seroquel restarted if she becomes agitated, otherwise continue to hold Consider CT head if patient's mental status does not improve (9) Atrial fibrillation Current Visit: Yes Status: Chronic Assessment and Plan: Chronic atrial fibrillation, not on anticoagulation at home due to risk outweighing benefit Currently Rate controlled, continue home beta dong and monitor (10) Constipation Current Visit: Yes Status: Acute Assessment and Plan: Hypercalcemia resolved Continue home stool softeners and laxatives Hold iron supplements (11) Parkinson disease Current Visit: Yes Status: Chronic Assessment and Plan: Patient with known history of dementia with Parkinson's dementia Mental status improving but reportedly not at baseline per daughter in law and son continue carbidopa/levodopa and memantine (12) Dehydration Current Visit: Yes Status: Acute Assessment and Plan: Cr continues declining to 1.67 today Nephro following (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 - No residual PTH function - 09/18/18 TSH, 9.603 -09/18/18 PTH, <1.0 L Patient to follow up with PCP after d/c (17) Hypoparathyroidism Current Visit: Yes Status: Chronic Assessment and Plan: see above hypothyroid (18) DVT prophylaxis Current Visit: Yes Status: Acute Assessment and Plan: subQ heparin - Time Spent with Patient Total time spent is greater than 50% in coordination of care (as documented) at patient's floor/unit and/or counseling patient: Internal Medicine: Result - Labs CBC & Chem 7: 09/24/18 05:40 09/24/18 05:40 Labs: Short CBC 09/24/18 Range/Units 05:40 WBC 4.4 (4.3-11.1) K/mcL Hgb 9.5 L (11.5-15.4) g/dL Hct 30.9 L (35.3-44.9) % Plt Count 100 L (140-400) K/mcL Neutrophils # 3.0 (1.6-8.9) K/mcL BMP 09/24/18 05:40 Sodium 146 H Potassium 3.2 L Chloride 114 H Carbon Dioxide 23 BUN 47 H Creatinine 1.67 H Glucose 92 Calcium 8.8 - ABG Interpretation ABG results: PT/INR, D-dimer PT 11.3 Seconds (9.4-12.1) 09/18/18 15:58 Consult Discharge Plan - Plan Referrals: Braden Garibay MD [Primary Care Provider] - <Francheska Peters - Last Filed: 09/24/18 17:45> Hospitalist Progress Note - Encounter Date of Encounter: 09/24/18 - Exam Vitals: Temp Pulse Resp BP Pulse Ox 98.2 F 91 14 135/98 97 09/24/18 14:15 09/24/18 14:15 09/24/18 14:15 09/24/18 14:15 09/24/18 14:15 - Assessment and Plan (1) Hypothyroidism Current Visit: Yes Status: Chronic (2) Atrial fibrillation Current Visit: Yes Status: Chronic (3) Protein calorie malnutrition Current Visit: No Status: Chronic (4) Pneumonia Current Visit: Yes Status: Acute (5) Constipation Current Visit: Yes Status: Acute (6) UTI (urinary tract infection) Current Visit: Yes Status: Chronic (7) Parkinson disease Current Visit: Yes Status: Chronic (8) ANISA (acute kidney injury) Current Visit: Yes Status: Acute (9) Hypercalcemia Current Visit: Yes Status: Acute (10) Acute metabolic encephalopathy Current Visit: Yes Status: Acute (11) Influenza A Current Visit: Yes Status: Acute - Time Spent with Patient Total time spent is greater than 50% in coordination of care (as documented) at patient's floor/unit and/or counseling patient: Internal Medicine: Result - Labs CBC & Chem 7: 09/24/18 05:40 09/24/18 05:40 Labs: Short CBC 09/24/18 Range/Units 05:40 WBC 4.4 (4.3-11.1) K/mcL Hgb 9.5 L (11.5-15.4) g/dL Hct 30.9 L (35.3-44.9) % Plt Count 100 L (140-400) K/mcL Neutrophils # 3.0 (1.6-8.9) K/mcL BMP 09/24/18 05:40 Sodium 146 H Potassium 3.2 L Chloride 114 H Carbon Dioxide 23 BUN 47 H Creatinine 1.67 H Glucose 92 Calcium 8.8 - ABG Interpretation ABG results: PT/INR, D-dimer PT 11.3 Seconds (9.4-12.1) 09/18/18 15:58 - Attending Attestation The history, physical exam, and medical decision making was performed by the medical student Jae either while I was physically present and actively inv olved or I personally re-performed the exam and medical decision making. I have verified the accuracy of the medical student's documentation with regards to the history, physical exam findings, and medical decision making. Ms Griffin is admitted with hypercalcemia with metabolic encephalopathy. Found to have influenza. She has recurrent UTIs and was found to have bacturia. Now that she is hydrated, suspected pna has become apparent on CXR asleep, awakes to name, no family present. alert and conversing. denies pain, sob, abd pain, admits to cough states she thinks she ate breakfast no fevers or chills gen- asleep, awakes to name, appears stated age cv- reg rate and rhythm, normal s1,s2, no murmurs appreciated, no pitting le edema lungs- ctabl no wheezing, rhonchi or crackles normal resp effort on room air abd- soft, no tenderness, non distended, + bs neuro- awake, CN grossly intact , no focal neuro deficits 1. Acute encephalopathy, very slowly improving - multifactorial likely related to hypercalcemia, dehydration, dementia, sedating home meds and influenza, possible UTI and possible pna - cont to treat infection, hold sedating home meds 2. Dehydration/Hypernatremia -awaiting ephro recs, has been off fluids, increase oral intake encouraged 3. Hypercalcemia, resolved with fluids - nephro following 4. ANISA on CKD - will treat possible uti given hisotry of recurrent MRDO UTIs in past, ivfs as per nephro, will require outpt nephro fu once dc'd for ckd 5. Elevated TSH in setting of hypothyroidism 2/2 thyroidectomy- recent outpt s ynthroid increase, tsh improved in last 3 weeks on chart review, no further adjustment as will see pcp for repeat testing of tsh once med change has had chance to take full effect in upcoming weeks 8. Chronic Afib, currently NSR- on NO AC at home, will not initiate here, cont home metoprolol 8. Influenza + - tamiflu course now complete and supportive care 9. As part of infectious work up Ucx sent- gnr >10,000 CFU but not greater than 100K CFU- sensitivities now back and MDRO proteus, old cxs and admits reviewed- given her hx will treat with zosyn (received in july) 10. Hypoxic resp failure,resolved- CXR with possible opacities that could indicate pna, will treat as possible pna with zosyn and attempt to confirm an organism she is a bed hold at her e[facility] and may return when medically ready <Seth Rowe - Last Filed: 09/24/18 15:26> (1) Pneumonia Qualifiers: Pneumonia type: due to unspecified organism Laterality: bilateral Lung location: unspecified part of lung Qualified Code(s): J18.9 - Pneumonia, unspecified organism (2) UTI (urinary tract infection) Qualifiers: Urinary tract infection type: site unspecified Hematuria presence: without hematuria Qualified Code(s): N39.0 - Urinary tract infection, site not specified (9) Atrial fibrillation Qualifiers: Atrial fibrillation type: chronic Qualified Code(s): I48.2 - Chronic atrial fibrillation (10) Constipation Qualifiers: Constipation type: other constipation type Qualified Code(s): K59.09 - Other constipation (14) Anemia Qualifiers: Anemia type: other cause Other causes of anemia: chronic disease, other Qualified Code(s): D63.8 - Anemia in other chronic diseases classified elsewhere (15) Dementia Qualifiers: Dementia type: Parkinson's disease Dementia behavioral disturbance: without behavioral disturbance Qualified Code(s): G20 - Parkinson's disease; F02.80 - Dementia in other diseases classified elsewhere without behavioral disturbance (16) Hypothyroidism Qualifiers: Hypothyroidism type: postoperative Qualified Code(s): E89.0 - Postprocedural hypothyroidism (17) Hypoparathyroidism Qualifiers: Hypoparathyroidism type: other hypoparathyroidism Qualified Code(s): E20.8 - Other hypoparathyroidism <Francheska Peters M - Last Filed: 09/24/18 17:45> (1) Hypothyroidism Qualifiers: Hypothyroidism type: postoperative Qualified Code(s): E89.0 - Postprocedural hypothyroidism (2) Atrial fibrillation Qualifiers: Atrial fibrillation type: chronic Qualified Code(s): I48.2 - Chronic atrial fibrillation (3) Protein calorie malnutrition Qualifiers: Protein-calorie malnutrition severity: unspecified severity Qualified Code(s): E46 - Unspecified protein-calorie malnutrition (4) Pneumonia Qualifiers: Pneumonia type: due to unspecified organism Laterality: bilateral Lung location: unspecified part of lung Qualified Code(s): J18.9 - Pneumonia, unspecified organism (5) Constipation Qualifiers: Constipation type: other constipation type Qualified Code(s): K59.09 - Other constipation (6) UTI (urinary tract infection) Qualifiers: Urinary tract infection type: site unspecified Hematuria presence: without hematuria Qualified Code(s): N39.0 - Urinary tract infection, site not specified
[2018-09-24] MEDS: Magnesium Oxide 400 MG TABLET PO SCH (10:45)
[2018-09-24] MEDS: Folic Acid 1 MG TABLET PO SCH (10:45)
[2018-09-24] MEDS: Carbidopa/Levodopa ER 50/200 TABLET PO SCH ×2 (10:45→21:35)
[2018-09-24] MEDS: Azelastine 0.1% Nasal Spray 30 ML BOTTLE NS SCH ×2 (10:46→21:39)
[2018-09-24] MEDS ORDERED: Potassium Chloride Elixir 20 MEQ/15 ML UDC PO ONE (11:36)
[2018-09-25] MEDS: Piperacillin/Tazobactam 3.375 GM in 0.9 % Sodium Chloride Mini Bag 100 ML IVPB SCH ×2 (00:06→13:45)
--- NOTE | 2018-09-25 02:01 | Nephrology Progress Note ---
Date of Encounter: 09/24/18 Time of Encounter: 15:00 - Assessment and Plan (1) Acute kidney injury superimposed on CKD Current Visit: Yes Status: Acute Renal function continues to improve. Calcium back to normal. Continue with current care. Ensure patient receives adequate hydration. Will sign off. Call if questions or concerns. (2) Dehydration, mild Current Visit: No Status: Acute (3) Metabolic encephalopathy Current Visit: Yes Status: Acute (4) Hypercalcemia Current Visit: Yes Status: Acute Subjective Principal diagnosis: confusion Interval history: Patient seen. She is asleep. Objective - Vital Signs Vital signs: Vital Signs Temp Pulse Resp BP Pulse Ox 09/24/18 21:39 95 09/24/18 19:15 97.8 F 77 15 147/96 95 09/24/18 14:15 98.2 F 91 14 135/98 97 09/24/18 11:08 97.6 F 78 16 149/75 97 09/24/18 08:03 97.9 F 73 15 146/84 95 09/24/18 03:35 97.3 F L 66 15 141/90 92 Intake and Output 09/24/18 09/24/18 09/25/18 15:59 23:59 07:59 Intake Total 60 / 60 100 / 100 Output Total 400 / 400 900 / 900 450 / 450 Balance -340 / -340 -800 / -800 -450 / -450 Intake: IV Fluids 100 / 100 Zosyn 3.375 GM In 0.9 % Sodium 100 / 100 Chloride (Mini-Bag +) 100 ML @ 25 mls/hr IVPB Q12H [facility] Rx#: [id number] Oral 60 / 60 0 / 0 Output: Urine 400 / 400 Catheter 0 / 0 900 / 900 450 / 450 Urethral (Nuñez) 150 / 150 450 / 450 Other: Meal Breakfast Percent of Meal Consumed 25% Stool Size Smear Stool Consistency soft Stool Characteristics Pasty Stool Color Green # Bowel Movements 0 # Bowel Movement Diapers 1 - General Appearance General appearance: Present: well-developed, well-nourished EENT: Present: ATNC Cardiology: Present: regular rate - Lab 09/24/18 05:40 09/24/18 05:40 Most recent lab results Calcium 8.8 mg/dL (8.6-10.3) 09/24/18 05:40 Phosphorus 3.3 mg/dL (2.7-4.5) 09/22/18 08:07 Magnesium 2.0 mg/dL (1.6-2.6) 09/23/18 07:03 Urine Sodium 82.6 mEq/L 09/18/18 11:08 Consult Discharge Plan - Plan Referrals: Braden Garibay MD [Primary Care Provider] -
[2018-09-25 04:02] LABS: Basophils % 0.6 %; Eosinophils # 0.1 K/mcL (0.0-0.6); Eosinophils % 2.6 %; Hematocrit 32.2 % (35.3-44.9); Hemoglobin 10.2 g/dL (11.5-15.4); Immature Granulocytes % 3.2 % (0-4); Lymphocytes # 1.1 K/mcL (0.6-4.6); Lymphocytes % 22.1 %; Mean Corpuscular HGB Conc 31.7 g/dL (31.6-35.5); Mean Corpuscular Hemoglobin 30.6 pg (28.0-33.3); Mean Corpuscular Volume 96.7 fL (83.0-100.0); Mean Platelet Volume 13.4 fL (9.4-12.4); Monocytes # 0.3 K/mcL (0.0-1.3); Monocytes % 6.8 %; Neutrophils # 3.3 K/mcL (1.6-8.9); Platelet Count 106 K/mcL (140-400); Red Blood Count 3.33 M/mcL (3.82-4.97); Red Cell Distribution Width 15.8 % (11.5-14.5); Segmented Neutrophils % 64.7 %
[2018-09-25 04:26] LABS: Calcium 8.8 mg/dL (8.6-10.3); Potassium 4.4 mEq/L (3.5-5.1)
[2018-09-25] MEDS: *HR* Heparin 5,000 UNIT/ML VIAL SQ SCH ×2 (06:15→18:29)
[2018-09-25] MEDS: Folic Acid 1 MG TABLET PO SCH (08:59)
[2018-09-25] MEDS: Magnesium Oxide 400 MG TABLET PO SCH (09:00)
[2018-09-25] MEDS: Carbidopa/Levodopa ER 50/200 TABLET PO SCH ×2 (09:01→21:28)
[2018-09-25] MEDS: Azelastine 0.1% Nasal Spray 30 ML BOTTLE NS SCH ×2 (09:01→21:28)
[2018-09-25] MEDS: Budesonide/Formoterol 160/4.5 1 PUFF INH IH SCH ×2 (09:58→20:04)
--- NOTE | 2018-09-25 10:40 | Internal Med Progress Note ---
<Seth Rowe - Last Filed: 09/25/18 10:37> Hospitalist Progress Note - Encounter Date of Encounter: 09/25/18 - Subjective Interval History: Patient is awake and resting comfortably upon entering the room. Patient responds to her name being called but answers questions inappropriately. 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 Patient is able to follow commands - Exam Vitals: Temp Pulse Resp BP Pulse Ox 98.3 F 77 18 146/96 96 09/25/18 10:14 09/25/18 10:14 09/25/18 10:14 09/25/18 10:14 09/25/18 10:14 Exam: Gen: NAD, AAOx1, answers questions inappropriately HEENT: Normocephalic, atraumatic, moist mucus mebranes, EOMI Neck: Supple, previous thyroidectomy scar Cardiac: RRR, no murmur, no rubs, no gallops, S1 and S2+, No pedal edema Pulmonary: CTA B/l, symmetric chest expansion, no wheezes Abdomen: soft, non-tender, non-distended, +bowel sounds Skin: warm, dry, intact, no erythema. Neuro: no facial droop, symmetric strength bilaterally UE's and LE's), no dysarthria Psych: unable to asses secondary to mental status Extremities: no pedal edema. 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 (8) Acute metabolic encephalopathy Status: Acute (9) Atrial fibrillation Status: Chronic (10) Constipation Status: Acute (11) Parkinson disease Status: Chronic (12) Dehydration Status: Acute (13) Frail elderly Status: Chronic (14) Anemia Status: Chronic (15) Dementia Status: Chronic (16) Hypothyroidism Status: Chronic (17) Hypoparathyroidism Status: Chronic (18) DVT prophylaxis Status: Acute - Time Spent with Patient Total time spent is greater than 50% in coordination of care (as documented) at patient's floor/unit and/or counseling patient: Internal Medicine: Result - Labs CBC & Chem 7: 09/25/18 03:15 09/25/18 03:15 Labs: Short CBC 09/25/18 Range/Units 03:15 WBC 5.0 (4.3-11.1) K/mcL Hgb 10.2 L (11.5-15.4) g/dL Hct 32.2 L (35.3-44.9) % Plt Count 106 L (140-400) K/mcL Neutrophils # 3.3 (1.6-8.9) K/mcL BMP 09/25/18 03:15 Sodium 144 Potassium 4.4 D Chloride 112 H Carbon Dioxide 24 BUN 42 H Creatinine 1.53 H Glucose 130 H Calcium 8.8 - ABG Interpretation ABG results: PT/INR, D-dimer PT 11.3 Seconds (9.4-12.1) 09/18/18 15:58 Consult Discharge Plan - Plan Referrals: Cuba Rodriguez MD [Partnered Physician] - (Office will call the [facility] with date and time of appointment. Thank you) Braden Garibay MD [Primary Care Provider] - <Dar Christian - Last Filed: 09/28/18 18:08> Hospitalist Progress Note - Encounter Date of Encounter: 09/25/18 Time of Encounter: 08:00 - Exam Vitals: Temp Pulse Resp BP Pulse Ox 97.4 F L 93 18 153/84 92 09/25/18 14:36 09/25/18 14:36 09/25/18 14:36 09/25/18 14:36 09/25/18 14:36 - Assessment and Plan (1) Hypothyroidism Status: Chronic (2) Atrial fibrillation Status: Chronic (3) Protein calorie malnutrition Status: Chronic (4) Pneumonia Status: Resolved (5) Constipation Status: Resolved (6) UTI (urinary tract infection) Status: Resolved (7) Parkinson disease Status: Chronic (8) ANISA (acute kidney injury) Status: Resolved (9) Hypercalcemia Status: Resolved (10) Acute metabolic encephalopathy Status: Resolved (11) Influenza A Status: Acute - Time Spent with Patient Total time spent is greater than 50% in coordination of care (as documented) at patient's floor/unit and/or counseling patient: Internal Medicine: Result - Labs CBC & Chem 7: 09/27/18 02:55 09/27/18 02:55 Labs: Short CBC 09/25/18 Range/Units 03:15 WBC 5.0 (4.3-11.1) K/mcL Hgb 10.2 L (11.5-15.4) g/dL Hct 32.2 L (35.3-44.9) % Plt Count 106 L (140-400) K/mcL Neutrophils # 3.3 (1.6-8.9) K/mcL BMP 09/25/18 03:15 Sodium 144 Potassium 4.4 D Chloride 112 H Carbon Dioxide 24 BUN 42 H Creatinine 1.53 H Glucose 130 H Calcium 8.8 - ABG Interpretation ABG results: PT/INR, D-dimer PT 11.3 Seconds (9.4-12.1) 09/18/18 15:58 - Attending Attestation The history, physical exam, and medical decision making was performed by the medical student either while I was physically present and actively involved or I personally re-performed the exam and medical decision making. I have verified the accuracy of the medical student's documentation with regards to the history, physical exam findings, and medical decision making on 09/25/18. Ms Griffin is currently admitted for acute encephalopathy and hypercalcemia. She remains moderate to high risk due to potential for worsening clinical status. Ms Griffin is alert but confused. No fever or chills. Unable to take a drink through straw due to dentures. Denies pain or other issue. Exam Alert. Comfortable Normocephalic Mucus membranes dry Dentures on bottom poorly fitting Neck supple Heart not tachy Coarse rhonchi bilaterally Abd soft and nontender No edema Moves all extremities Confused to place and time I/P 1. Acute encephalopathy - appears to be at baseline 2. Hypercalcemia - resolved. 3. Dehydration - resolved. Discussed with [id number] at bedside. She does not want tubes. We discussed that she needs to have adequate PO intake/fluids or this is going to recur again. Recommended evaluating lower dentures. 4. Dementia 5. Influenza A - completed Tamiflu 6. Chronic a fib 7. ANISA - improving 8. Pneumonia - on IV abx. Will transition to PO at discharge. Further diagnoses and plan as above. Probable d/c to ECF tomorrow if renal function stable. <Seth Rowe - Last Filed: 09/25/18 10:37> (1) Pneumonia Qualifiers: Pneumonia type: due to unspecified organism Laterality: bilateral Lung location: unspecified part of lung Qualified Code(s): J18.9 - Pneumonia, unspecified organism (2) UTI (urinary tract infection) Qualifiers: Urinary tract infection type: site unspecified Hematuria presence: without hematuria Qualified Code(s): N39.0 - Urinary tract infection, site not specified (9) Atrial fibrillation Qualifiers: Atrial fibrillation type: chronic Qualified Code(s): I48.2 - Chronic atrial fibrillation (10) Constipation Qualifiers: Constipation type: other constipation type Qualified Code(s): K59.09 - Other constipation (14) Anemia Qualifiers: Anemia type: other cause Other causes of anemia: chronic disease, other Qual ified Code(s): D63.8 - Anemia in other chronic diseases classified elsewhere (15) Dementia Qualifiers: Dementia type: Parkinson's disease Dementia behavioral disturbance: without behavioral disturbance Qualified Code(s): G20 - Parkinson's disease; F02.80 - Dementia in other diseases classified elsewhere without behavioral disturbance (16) Hypothyroidism Qualifiers: Hypothyroidism type: postoperative Qualified Code(s): E89.0 - Postprocedural hypothyroidism (17) Hypoparathyroidism Qualifiers: Hypoparathyroidism type: other hypoparathyroidism Qualified Code(s): E20.8 - Other hypoparathyroidism <Dar Christian - Last Filed: 09/28/18 18:08> (1) Hypothyroidism Qualifiers: Hypothyroidism type: postoperative Qualified Code(s): E89.0 - Postprocedural hypothyroidism (2) Atrial fibrillation Qualifiers: Atrial fibrillation type: chronic Qualified Code(s): I48.2 - Chronic atrial fibrillation (3) Protein calorie malnutrition Qualifiers: Protein-calorie malnutrition severity: unspecified severity Qualified Code(s): E46 - Unspecified protein-calorie malnutrition (4) Pneumonia Qualifiers: Pneumonia type: due to unspecified organism Laterality: bilateral Lung location: unspecified part of lung Qualified Code(s): J18.9 - Pneumonia, unspecified organism (5) Constipation Qualifiers: Constipation type: other constipation type Qualified Code(s): K59.09 - Other constipation (6) UTI (urinary tract infection) Qualifiers: Urinary tract infection type: acute cystitis Hematuria presence: without hematuria Qualified Code(s): N30.00 - Acute cystitis without hematuria
[2018-09-26] MEDS: Piperacillin/Tazobactam 3.375 GM in 0.9 % Sodium Chloride Mini Bag 100 ML IVPB SCH ×2 (00:51→12:05)
[2018-09-26] MEDS: *HR* Heparin 5,000 UNIT/ML VIAL SQ SCH (06:06)
[2018-09-26] MEDS: Budesonide/Formoterol 160/4.5 1 PUFF INH IH SCH ×2 (07:19→20:22)
[2018-09-26] MEDS: Magnesium Oxide 400 MG TABLET PO SCH (07:38)
[2018-09-26] MEDS: Carbidopa/Levodopa ER 50/200 TABLET PO SCH ×2 (07:40→22:20)
[2018-09-26] MEDS: Folic Acid 1 MG TABLET PO SCH (07:40)
[2018-09-26] MEDS: Azelastine 0.1% Nasal Spray 30 ML BOTTLE NS SCH ×2 (07:40→22:22)
[2018-09-26 09:26] LABS: Red Cell Distribution Width 15.9 % (11.5-14.5)
[2018-09-26 09:28] LABS: Hematocrit 35.1 % (35.3-44.9); Immature Platelets 19.9 % (1.1-6.1); Mean Corpuscular HGB Conc 31.3 g/dL (31.6-35.5); Mean Corpuscular Hemoglobin 29.8 pg (28.0-33.3); Mean Corpuscular Volume 95.1 fL (83.0-100.0); Mean Platelet Volume 13.9 fL (9.4-12.4); Red Blood Count 3.69 M/mcL (3.82-4.97)
[2018-09-26 09:32] LABS: Calcium 8.3 mg/dL (8.6-10.3); Magnesium 1.8 mg/dL (1.6-2.6); Potassium 4.5 mEq/L (3.5-5.1)
--- NOTE | 2018-09-26 13:06 | Internal Med Progress Note ---
<Seth Rowe - Last Filed: 09/26/18 15:59> Hospitalist Progress Note - Encounter Date of Encounter: 09/26/18 Time of Encounter: 10:30 - Subjective Interval History: Patient is awake and being fed breakfast by daughter in law upon entering the room. Patient makes eye contact when her name is called but does not verbalize any answers to questions. Daughter in law concerned because there is "no kidney drink here that her kidney doctor wants her to have". Patient is able to follow commands. Nephrology has signed off but family requests nephrology sees before discharge - Exam Vitals: Temp Pulse Resp BP Pulse Ox 98.2 F 81 16 125/83 96 09/26/18 11:30 09/26/18 11:30 09/26/18 11:30 09/26/18 11:30 09/26/18 11:30 Exam: Gen: NAD, unable to assess orientation due to her not answering questions HEENT: Normocephalic, atraumatic, moist mucus mebranes, EOMI Neck: Supple, previous thyroidectomy scar Cardiac: RRR, no murmur, no rubs, no gallops, S1 and S2+, No pedal edema Pulmonary: CTA B/l, symmetric chest expansion, no wheezes Abdomen: soft, non-tender, non-distended, +bowel sounds Skin: warm, dry, intact, no erythema. Neuro: no facial droop, symmetric strength bilaterally UE's and LE's), no dysarthria Psych: unable to asses secondary to mental status Extremities: no pedal edema. Intact range of motion, loss of subcutaneous fat, loss of muscle mass, temporal wasting - Assessment and Plan (1) Pneumonia Current Visit: Yes Status: Acute Assessment and Plan: Chest x-ray revealed increased bilateral airspace opacities and underlying diffuse interstitial opacities, potentially alveolar and interstitial edema or m ultifocal pneumonia. Small to moderate right and suspected trace left pleural effusions. Initial blood cultures show no growth to date. Repeat blood cultures are pending. Continue treating empirically with Zosyn Urine Legionella and strep pneumo antigens are negative. MRSA nasal swab was negative on 08/28/18 Encourage incentive spirometry (2) UTI (urinary tract infection) Current Visit: Yes Status: Chronic Assessment and Plan: Asymptomatic Urine culture Proteus mirabilis (>10,000 CFU but not greater than 100K CFU) Continue treating empirically with Zosyn (3) Hypokalemia Current Visit: Yes Status: Acute Assessment and Plan: Resolved, potassium 4.5 today Continue to monitor (4) Acute kidney injury superimposed on CKD Current Visit: Yes Status: Acute Assessment and Plan: Baseline creatinine around 0.9 -1.7 Creatinine 1.50 today Retroperitoneal U/S of kidneys and bladder demonstrates no evidence of h ydronephrosis. Echogenic foci in the left kidney are favored to represent a nonobstructing calculi. 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 Assessment and Plan: see above hypercalcemia (8) Acute metabolic encephalopathy Current Visit: Yes Status: Acute Assessment and Plan: Suspect secondary to hypercalcemia, ANISA, UTI, PNA, Flu, dehydration Continue to monitor for further improvement Patient may need her home Seroquel restarted if she becomes agitated, otherwise continue to hold Consider CT head if patient's mental status does not improve (9) Atrial fibrillation Current Visit: Yes Status: Chronic Assessment and Plan: Chronic atrial fibrillation, not on anticoagulation at home due to risk outweighing benefit Currently Rate controlled, continue home beta dong and monitor (10) Constipation Current Visit: Yes Status: Acute Assessment and Plan: Hypercalcemia resolved Continue home stool softeners and laxatives Hold iron supplements (11) Parkinson disease Current Visit: Yes Status: Chronic Assessment and Plan: Patient with known history of dementia with Parkinson's dementia Mental status improving but reportedly not at baseline per daughter in law and son continue carbidopa/levodopa and memantine (12) Dehydration Current Visit: Yes Status: Acute Assessment and Plan: Cr down to 1.50 today Nephro signed off (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 - No residual PTH function - 09/18/18 TSH, 9.603 -09/18/18 PTH, <1.0 L Patient to follow up with PCP after d/c (17) Hypoparathyroidism Current Visit: Yes Status: Chronic Assessment and Plan: see above hypothyroid - Time Spent with Patient Total time spent is greater than 50% in coordination of care (as documented) at patient's floor/unit and/or counseling patient: Internal Medicine: Result - Labs CBC & Chem 7: 09/26/18 08:44 09/26/18 08:44 Labs: Short CBC 09/26/18 Range/Units 08:44 WBC 5.9 (4.3-11.1) K/mcL Hgb 11.0 L (11.5-15.4) g/dL Hct 35.1 L (35.3-44.9) % Plt Count 89 L (140-400) K/mcL BMP 09/26/18 08:44 Sodium 139 Potassium 4.5 Chloride 110 H Carbon Dioxide 21 L BUN 33 H Creatinine 1.50 H Glucose 88 Calcium 8.3 L - ABG Interpretation ABG results: PT/INR, D-dimer PT 11.3 Seconds (9.4-12.1) 09/18/18 15:58 Consult Discharge Plan - Plan Referrals: Braden Garibay MD [Primary Care Provider] - <Dar Christian - Last Filed: 09/26/18 17:33> Hospitalist Progress Note - Encounter Date of Encounter: 09/26/18 - Exam Vitals: Temp Pulse Resp BP Pulse Ox 97.4 F L 78 16 125/85 97 09/26/18 15:12 09/26/18 15:12 09/26/18 15:12 09/26/18 15:12 09/26/18 15:12 - Assessment and Plan (1) Hypothyroidism Current Visit: Yes Status: Chronic (2) Atrial fibrillation Current Visit: Yes Status: Chronic (3) Protein calorie malnutrition Current Visit: No Status: Chronic (4) Pneumonia Current Visit: Yes Status: Acute (5) Constipation Current Visit: Yes Status: Acute (6) UTI (urinary tract infection) Current Visit: Yes Status: Chronic (7) Parkinson disease Current Visit: Yes Status: Chronic (8) ANISA (acute kidney injury) Current Visit: Yes Status: Acute (9) Hypercalcemia Current Visit: Yes Status: Resolved (10) Acute metabolic encephalopathy Current Visit: Yes Status: Acute (11) Influenza A Current Visit: Yes Status: Acute - Time Spent with Patient Total time spent is greater than 50% in coordination of care (as documented) at patient's floor/unit and/or counseling patient: Internal Medicine: Result - Labs CBC & Chem 7: 09/26/18 08:44 09/26/18 08:44 Labs: Short CBC 09/26/18 Range/Units 08:44 WBC 5.9 (4.3-11.1) K/mcL Hgb 11.0 L (11.5-15.4) g/dL Hct 35.1 L (35.3-44.9) % Plt Count 89 L (140-400) K/mcL BMP 09/26/18 08:44 Sodium 139 Potassium 4.5 Chloride 110 H Carbon Dioxide 21 L BUN 33 H Creatinine 1.50 H Glucose 88 Calcium 8.3 L - ABG Interpretation ABG results: PT/INR, D-dimer PT 11.3 Seconds (9.4-12.1) 09/18/18 15:58 - Attending Attestation The history, physical exam, and medical decision making was performed by the medical student either while I was physically present and actively involved or I personally re-performed the exam and medical decision making. I have verified the accuracy of the medical student's documentation with regards to the history, physical exam findings, and medical decision making on 09/26/18. Ms Griffin is currently admitted for hypercalcemia and dehydration with ANISA. She remains moderate to high risk due to potential for worsening clinical status. Ms Griffin was somnolent this AM but awoke and ate well later in the day. Creatinine stable at this time. [id number] concerned about renal function. Wants to talk to nephrology again. No fever or chills. No SOB noted. Exam alert Comfortable Mucus membranes dry Normocephalic Neck supple Heart irreg and not tachy No wheeze abd soft Moves all extremities Pulses palpable I/P 1. ANISA - improving. 2. Parkinsons disease - continue sinemet 3. Dementia on Namenda 4. Hyper calcemia - resolved 5. Dehydration - resolved. Discussed with [id number] need for adequate hydration. They do not want any feeding tubes. Further diagnoses and plan as above. <Seth Rowe - Last Filed: 09/26/18 15:59> (1) Pneumonia Qualifiers: Pneumonia type: due to unspecified organism Laterality: bilateral Lung location: unspecified part of lung Qualified Code(s): J18.9 - Pneumonia, unspecified organism (2) UTI (urinary tract infection) Qualifiers: Urinary tract infection type: acute cystitis Hematuria presence: without hematuria Qualified Code(s): N30.00 - Acute cystitis without hematuria (9) Atrial fibrillation Qualifiers: Atrial fibrillation type: chronic Qualified Code(s): I48.2 - Chronic atrial fibrillation (10) Constipation Qualifiers: Constipation type: other constipation type Qualified Code(s): K59.09 - Other constipation (14) Anemia Qualifiers: Anemia type: other cause Other causes of anemia: chronic disease, other Qualified Code(s): D63.8 - Anemia in other chronic diseases classified elsewhere (15) Dementia Qualifiers: Dementia type: Parkinson's disease Dementia behavioral disturbance: without behavioral disturbance Qualified Code(s): G20 - Parkinson's disease; F02.80 - Dementia in other diseases classified elsewhere without behavioral disturbance (16) Hypothyroidism Qualifiers: Hypothyroidism type: postoperative Qualified Code(s): E89.0 - Postprocedural hypothyroidism (17) Hypoparathyroidism Qualifiers: Hypoparathyroidism type: other hypoparathyroidism Qualified Code(s): E20.8 - Other hypoparathyroidism <Dar Christian - Last Filed: 09/26/18 17:33> (1) Hypothyroidism Qualifiers: Hypothyroidism type: postoperative Qualified Code(s): E89.0 - Postprocedural hypothyroidism (2) Atrial fibrillation Qualifiers: Atrial fibrillation type: chronic Qualified Code(s): I48.2 - Chronic atrial fibrillation (3) Protein calorie malnutrition Qualifiers: Protein-calorie malnutrition severity: unspecified severity Qualified Code(s): E46 - Unspecified protein-calorie malnutrition (4) Pneumonia Qualifiers: Pneumonia type: due to unspecified organism Laterality: bilateral Lung location: unspecified part of lung Qualified Code(s): J18.9 - Pneumonia, unspecified organism (5) Constipation Qualifiers: Constipation type: other constipation type Qualified Code(s): K59.09 - Other constipation (6) UTI (urinary tract infection) Qualifiers: Urinary tract infection type: acute cystitis Hematuria presence: without hematuria Qualified Code(s): N30.00 - Acute cystitis without hematuria
[2018-09-26] MEDS ORDERED: Mirtazapine 15 MG TABLET PO SCH (21:00)
[2018-09-27] MEDS: Piperacillin/Tazobactam 3.375 GM in 0.9 % Sodium Chloride Mini Bag 100 ML IVPB SCH ×2 (01:09→12:49)
[2018-09-27 03:30] LABS: Basophils % 0.6 %; Eosinophils # 0.2 K/mcL (0.0-0.6); Eosinophils % 2.4 %; Hemoglobin 10.8 g/dL (11.5-15.4); Immature Granulocytes % 2.9 % (0-4); Lymphocytes # 1.6 K/mcL (0.6-4.6); Lymphocytes % 24.4 %; Mean Corpuscular HGB Conc 30.9 g/dL (31.6-35.5); Mean Corpuscular Volume 97.2 fL (83.0-100.0); Mean Platelet Volume 12.5 fL (9.4-12.4); Monocytes # 0.4 K/mcL (0.0-1.3); Monocytes % 6.2 %; Neutrophils # 4.2 K/mcL (1.6-8.9); Nucleated Red Blood Cells 0.3 /100 WBC (0); Platelet Count 127 K/mcL (140-400); Red Cell Distribution Width 15.7 % (11.5-14.5); Segmented Neutrophils % 63.5 %
[2018-09-27 03:46] LABS: Albumin 3.2 g/dL (3.5-5.7); Bilirubin,Total 0.6 mg/dL (0.3-1.0); Calcium 8.3 mg/dL (8.6-10.3); Globulin 3.2 g/dL (2.4-3.5); Potassium 4.8 mEq/L (3.5-5.1); Total Protein 6.4 g/dL (6.4-8.9)
[2018-09-27] MEDS: Budesonide/Formoterol 160/4.5 1 PUFF INH IH SCH (07:23)
[2018-09-27 07:42] VITALS: BP 133/97
[2018-09-27] MEDS: Folic Acid 1 MG TABLET PO SCH (08:43)
[2018-09-27] MEDS: Carbidopa/Levodopa ER 50/200 TABLET PO SCH (08:43)
[2018-09-27] MEDS: Magnesium Oxide 400 MG TABLET PO SCH (08:43)
[2018-09-27] MEDS: Azelastine 0.1% Nasal Spray 30 ML BOTTLE NS SCH (08:53)
--- NOTE | 2018-09-27 15:05 | Discharge Summary ---
- NOTES TO OUTPATIENT PROVIDER Notes to Outpatient Provider: Pt admitted with hypercalcemia and dehydration. Hydrated with improvement. Developed ANISA with return to baseline. Date of Encounter: 09/27/18 Time of Encounter: 12:00 - Discharge Diagnosis (1) Hypothyroidism Priority: Secondary Status: Chronic Qualifiers: Hypothyroidism type: postoperative Qualified Code(s): E89.0 - Postprocedural hypothyroidism (2) Atrial fibrillation Priority: Secondary Status: Chronic Qualifiers: Atrial fibrillation type: chronic Qualified Code(s): I48.2 - Chronic atrial fibrillation (3) Protein calorie malnutrition Priority: Secondary Status: Chronic Qualifiers: Protein-calorie malnutrition severity: unspecified severity Qualified Code(s): E46 - Unspecified protein-calorie malnutrition (4) Pneumonia Priority: Secondary Status: Resolved Qualifiers: Pneumonia type: due to unspecified organism Laterality: bilateral Lung location: unspecified part of lung Qualified Code(s): J18.9 - Pneumonia, unspecified organism (5) Constipation Priority: Secondary Status: Resolved Qualifiers: Constipation type: other constipation type Qualified Code(s): K59.09 - Other constipation (6) UTI (urinary tract infection) Priority: Secondary Status: Resolved Qualifiers: Urinary tract infection type: acute cystitis Hematuria presence: without hematuria Qualified Code(s): N30.00 - Acute cystitis without hematuria (7) Parkinson disease Priority: Secondary Status: Chronic (8) ANISA (acute kidney injury) Priority: Secondary Status: Resolved (9) Hypercalcemia Priority: Primary Status: Resolved (10) Acute metabolic encephalopathy Priority: Secondary Status: Resolved (11) Influenza A Priority: Secondary Status: Acute Hospital course: Ms. Griffin is a 83 year old female with hx of Parkinsons and dementia brought to ED due to confusion. Found to be hypercalcemic and admitted. Ms Griffin was admitted to med surg with hypercalcemia and dehydration. She was started on IV fluids. She was seen by nephrology service with improvement in her renal function. She was evaluated by palliative care and family continued full code but no machines or tubes. She developed worsening respiratory status and was found to have influenza A. She was treated with Tamiflu. She was treated with abx for UTI and presumed pneumonia as well. She continued to slowly improve. Family had concerns about renal function and wished to see nephrology again. Today she is afebrile and ready to return to SNF. Discharge discussed with: patient, social work, case management, event management consultant - Time Spent with Patient Total time spent providing and/or coordinating discharge services: 39 min - Discharge Medications Home Medications: RX: Acetaminophen [Tylenol] 650 mg PO Q6HR PRN 09/14/15 [History] RX: Budesonide/Formoterol 160/4.5 [Symbicort 160/4.5] 2 puff IH BID 09/14/15 [History] RX: Docusate [Colace] 100 mg PO BID 09/14/15 [History] RX: Folic Acid 1 mg PO DAILY 09/14/15 [History] RX: Magnesium Oxide [Magnesium] 400 mg PO DAILY 09/14/15 [History] RX: Memantine HCl [Namenda Xr] 28 mg PO DAILY 09/14/15 [History] RX: Omeprazole [PriLOSEC] 20 mg PO DAILY 09/14/15 [History] RX: Azelastine 0.1% Nasal [place]erson [Astelin] 2 spr NS BID 05/19/17 [History] RX: Carbidopa/Levodopa ER 50/200 [Sinemet ER 50-200 Tab] 1 tab PO BID 05/19/17 [History] RX: Lactobacillus Acidophilus [Acidophilus] 1 cap PO BID 05/19/17 [History] RX: Magnesium Hydroxide [Milk of Magnesia] 30 ml PO DAILY PRN 05/19/17 [History] RX: Quetiapine Fumarate [Seroquel] 12.5 mg PO HS 02/28/18 [History] RX: Bisacodyl [Dulcolax] 10 mg RC DAILY PRN #30 supp.rect 04/04/18 [Rx] RX: Megestrol Acetate [Megace] 800 mg PO DAILY #30 bottle 04/04/18 [Rx] RX: Mirtazapine 7.5 mg PO HS 04/25/18 [History] RX: Paroxetine HCl [Paxil] 20 mg PO DAILY 04/25/18 [History] RX: Albuterol Sulfate [Ventolin Hfa] 2 puff IH Q4HR PRN #0 04/27/18 [Rx] RX: Ferrous Sulfate [Iron] 325 mg PO DAILY 07/15/18 [History] RX: Metoprolol [Lopressor] 50 mg PO BID #60 tablet 07/22/18 [Rx] RX: Levothyroxine [Synthroid] 175 mcg PO DAILY 30 Days #30 tablet 08/30/18 [Rx] RX: Calcitriol 1 mcg PO DAILY 09/18/18 [History] RX: Trimethoprim 100 mg PO HS 09/18/18 [History] Allergies/Adverse Reactions: Allergy/AdvReac Type Severity Reaction Status Date / Time Amoxicillin Allergy unknown Verified 08/26/18 13:14 atropine Allergy unknown Verified 08/26/18 13:14 codeine Allergy See Verified 08/26/18 13:14 Comments Diphenoxylate Allergy unknown Verified 08/26/18 13:14 enalapril Allergy unknown Verified 08/26/18 13:14 esomeprazole Allergy Unknown Verified 08/26/18 13:14 gluten Allergy Diarrhea Verified 08/26/18 13:14 hydromorphone [Hydromorphone] Allergy unknown Verified 08/26/18 13:14 Iodinated Contrast- Oral and Allergy unknown Verified 08/26/18 13:14 IV Dye [Iodinated Contrast Media - IV Dye] nitrofurantoin Allergy unknown Verified 08/26/18 13:14 Penicillins Allergy unkown Verified 08/26/18 13:14 piroxicam Allergy unknown Verified 08/26/18 13:14 Sulfa (Sulfonamide Allergy unknown Verified 08/26/18 13:14 Antibiotics) Date of admission: 09/17/18 16:45 Primary care physician: Braden Garibay MD Consults: 09/17/18 14:45 Consult to Nephrology [CONS] Stat Consulting Provider: Kidney Shameka/REBEKA/SUE/WINSTON Reason for Consult: Acute kidney injury, hypercalcemia Dr. Hill Time Notified: 14:46 Call Completed: Yes 09/17/18 17:28 Consult to Materials Director [CONS] Routine Reason for SW Consult: Placement, from [facility] 09/17/18 17:30 Consult to Palliative Care [CONS] Routine Comment: Consulting Provider: Palliative Care Shameka Reason for Consult: Goals of care, patient's PCP told family she may only have 6 months Call Completed: No 09/19/18 10:58 Consult to Nutrition [CONS] Routine Comment: Consulting Provider: NUTRITION Reason for Dietary Consult: PO Supplementation Consult to Speech Therapy [CONS] Routine Comment: Evaluate, develop and implement POC Reason for Consult: Assess for diet needs Call Completed: No 09/23/18 08:13 Consult to Nurse Navigator [CONS] Routine Comment: Pneumonia Discharging clinician: Dar Christian Anticipated date of discharge: 09/27/18 - Constitutional Vitals: Temp Pulse Resp BP Pulse Ox 97.8 F 76 15 133/97 96 09/27/18 07:40 09/27/18 07:40 09/27/18 07:40 09/27/18 07:40 09/27/18 07:40 General appearance: Present: A&O X 2, pleasant Exam: See below - Head Head exam: Present: normocephalic - Eye Eye exam: Present: conjuntiva pink - ENT ENT exam: Present: mucous membranes moist - Neck Neck exam general surgery: Present: normal inspection - Respiratory Respiratory exam: Present: decreased breath sounds, CTAB - Cardiovascular Cardiovascular exam: Present: irregular rhythm. Absent: tachycardia - GI/Abdominal GI/Abdominal exam: Present: soft. Absent: tenderness - Extremities Exam Extremities exam: Present: warm. Absent: tenderness - Neurological Exam Neurological exam: Present: alert - Skin Skin exam: Present: dry, warm - Patient Status Disposition: Transfer SNF Condition: Fair Functional capacity at discharge: uses cane/walker Overall status at discharge: patient is progressing back to baseline - Discharge Instructions Follow Up With: Cuba Rodriguez MD [Partnered Physician] - (Office will call the [facility] with date and time of appointment. Thank you) Braden Garibay MD [Primary Care Provider] - - Diet and Activity Activity: increase activity as tolerated Diet: other (Mechanically altered, gluten free.)
--- NOTE | 2018-09-27 15:08 | Physician Discharge Referral ---
ExtendedCare Referral Info Provider in Charge after Transfer: PCP Institutional Level of Care: Intermediate - Diagnosis (1) Hypothyroidism Priority: Secondary Status: Chronic (2) Atrial fibrillation Priority: Secondary Status: Chronic (3) Protein calorie malnutrition Priority: Secondary Status: Chronic (4) Pneumonia Priority: Secondary Status: Resolved (5) Constipation Priority: Secondary Status: Acute (6) UTI (urinary tract infection) Priority: Secondary Status: Resolved (7) Parkinson disease Priority: Secondary Status: Chronic (8) ANISA (acute kidney injury) Priority: Secondary Status: Acute (9) Hypercalcemia Priority: Primary Status: Resolved (10) Acute metabolic encephalopathy Priority: Secondary Status: Resolved (11) Influenza A Priority: Secondary Status: Acute - Transfer Medications Home Medications: Acetaminophen [Tylenol] 650 mg PO Q6HR PRN 09/14/15 [History] Budesonide/Formoterol 160/4.5 [Symbicort 160/4.5] 2 puff IH BID 09/14/15 [History] Docusate [Colace] 100 mg PO BID 09/14/15 [History] Folic Acid 1 mg PO DAILY 09/14/15 [History] Magnesium Oxide [Magnesium] 400 mg PO DAILY 09/14/15 [History] Memantine HCl [Namenda Xr] 28 mg PO DAILY 09/14/15 [History] Omeprazole [PriLOSEC] 20 mg PO DAILY 09/14/15 [History] Azelastine 0.1% Nasal [place]inkle [Astelin] 2 spr NS BID 05/19/17 [History] Carbidopa/Levodopa ER 50/200 [Sinemet ER 50-200 Tab] 1 tab PO BID 05/19/17 [History] Lactobacillus Acidophilus [Acidophilus] 1 cap PO BID 05/19/17 [History] Magnesium Hydroxide [Milk of Magnesia] 30 ml PO DAILY PRN 05/19/17 [History] Quetiapine Fumarate [Seroquel] 12.5 mg PO HS 02/28/18 [History] Bisacodyl [Dulcolax] 10 mg RC DAILY PRN #30 supp.rect 04/04/18 [Rx] Megestrol Acetate [Megace] 800 mg PO DAILY #30 bottle 04/04/18 [Rx] Mirtazapine 7.5 mg PO HS 04/25/18 [History] Paroxetine HCl [Paxil] 20 mg PO DAILY 04/25/18 [History] Albuterol Sulfate [Ventolin Hfa] 2 puff IH Q4HR PRN #0 04/27/18 [Rx] Ferrous Sulfate [Iron] 325 mg PO DAILY 07/15/18 [History] Metoprolol [Lopressor] 50 mg PO BID #60 tablet 07/22/18 [Rx] Levothyroxine [Synthroid] 175 mcg PO DAILY 30 Days #30 tablet 08/30/18 [Rx] Calcitriol 1 mcg PO DAILY 09/18/18 [History] Trimethoprim 100 mg PO HS 09/18/18 [History] Allergies/Adverse Reactions: Allergy/AdvReac Type Severity Reaction Status Date / Time Amoxicillin Allergy unknown Verified 08/26/18 13:14 atropine Allergy unknown Verified 08/26/18 13:14 codeine Allergy See Verified 08/26/18 13:14 Comments Diphenoxylate Allergy unknown Verified 08/26/18 13:14 enalapril Allergy unknown Verified 08/26/18 13:14 esomeprazole Allergy Unknown Verified 08/26/18 13:14 gluten Allergy Diarrhea Verified 08/26/18 13:14 hydromorphone [Hydromorphone] Allergy unknown Verified 08/26/18 13:14 Iodinated Contrast- Oral and Allergy unknown Verified 08/26/18 13:14 IV Dye [Iodinated Contrast Media - IV Dye] nitrofurantoin Allergy unknown Verified 08/26/18 13:14 Penicillins Allergy unkown Verified 08/26/18 13:14 piroxicam Allergy unknown Verified 08/26/18 13:14 Sulfa (Sulfonamide Allergy unknown Verified 08/26/18 13:14 Antibiotics) - Respiratory Orders None Smoking Cessation: Smoking cessation has been advised. For more information, call the [place] Tobacco Quit Line at 3-172-XAJO-NOW. - Ancillary Orders May use pressure relief devices daily prn, May go on IRAM w/family/respon republican w/meds at nurse discretion PRN, May consult with Dentist, Highway Engineering Technician, Extractor Plant Operator PRN - Advance Directives Code Status: Full Code - Mobility Orders Ambulate - Rehabiliation Orders Rehab Potential: Fair - Treatments Skin tear care topically daily PRN per policy, May check for fecal impaction rectally daily PRN, Fleet enema rectally every other day PRN cleansing purposes - Diet Orders Mechanical Soft (Gluten free) CERTIFICATION: I certify that the transfer of the above named patient to an Extended Care Facility is necessary for the continuing treatment of the diagnosis listed. The above information is true and accurate reflection of patient's current condition. Confidential - Redisclosure prohibited without a patient's written consent.
== END 2018-09-27 17:29 | DRG 682 ==
LOC: EMEROOARM 10:46 → 3ANU 10:46 → OBSVTOIN 16:45 → SUATTDRO 16:45 → 3ANU 17:02
PROVIDERS: ADMIT Student in an Organized Health Care Education/Training Program; ATTEND Internal Medicine

== ENCOUNTER 2018-11-07 20:56 | Observation (INO) ==
--- NOTE | 2018-11-07 21:08 | Emergency Department Note ---
Disposition Clinical Impression: Altered mental status Qualifiers: Altered mental status type: unspecified Qualified Code(s): R41.82 - Altered mental status, unspecified UTI (urinary tract infection) Qualifiers: Urinary tract infection type: site unspecified Hematuria presence: without hematuria Qualified Code(s): N39.0 - Urinary tract infection, site not specified Disposition: Admitted As Inpatient Condition: Good Time of Disposition: 22:49 Altered Mental Status HPI - General Chief Complaint: ED Altered Mental Status Stated Complaint: AMS Time Seen by Provider: 11/07/18 21:03 Source: EMS Mode of arrival: EMS Limitations: altered mental status Nursing Notes Reviewed: Yes Vital Signs Reviewed: Yes - History of Present Illness HPI Narrative: Patient is an 83-year-old female with past medical history of dementia, COPD, hypertension, A. fib. Presents today from senior care due to uncertain for altered mental status. According to EMS, patient is chronically altered due to dementia but was found to be altered above her baseline. No known falls. She does have a history of frequent UTIs in the past that has caused her to have worsening mental status. Patient herself is denying any pain, denying any cough, fevers, chest pain, shortness breath, abdominal pain, vomiting, diarrhea. Denies any dysuria. However, she is a poor historian and is oriented to person only, she is very confused throughout the entire exam, answering some questions inappropriately, has tangential thoughts. No family currently present with the patient. - Related Data Home Medications Medication Instructions Recorded Confirmed RX: Acetaminophen [Tylenol] 650 mg PO Q6HR PRN 09/14/15 09/18/18 RX: Budesonide/Formoterol 160/4.5 2 puff IH BID 09/14/15 09/18/18 [Symbicort 160/4.5] RX: Docusate [Colace] 100 mg PO BID 09/14/15 09/18/18 RX: Folic Acid 1 mg PO DAILY 09/14/15 09/18/18 RX: Magnesium Oxide [Magnesium] 400 mg PO DAILY 09/14/15 09/18/18 RX: Memantine HCl [Namenda Xr] 28 mg PO DAILY 09/14/15 09/18/18 RX: Omeprazole [PriLOSEC] 20 mg PO DAILY 09/14/15 09/18/18 RX: Azelastine 0.1% Nasal [place] 2 spr NS BID 05/19/17 09/18/18 [Astelin] RX: Carbidopa/Levodopa ER 50/200 1 tab PO BID 05/19/17 09/18/18 [Sinemet ER 50-200 Tab] RX: Lactobacillus Acidophilus 1 cap PO BID 05/19/17 09/18/18 [Acidophilus] RX: Magnesium Hydroxide [Milk of 30 ml PO DAILY PRN 05/19/17 09/18/18 Magnesia] RX: Quetiapine Fumarate [Seroquel] 12.5 mg PO HS 02/28/18 09/18/18 RX: Mirtazapine 7.5 mg PO HS 04/25/18 09/18/18 RX: Paroxetine HCl [Paxil] 20 mg PO DAILY 04/25/18 09/18/18 RX: Ferrous Sulfate [Iron] 325 mg PO DAILY 07/15/18 09/18/18 RX: Calcitriol 1 mcg PO DAILY 09/18/18 09/18/18 RX: Trimethoprim 100 mg PO HS 09/18/18 09/18/18 Previous Rx's Medication Instructions Recorded RX: Bisacodyl [Dulcolax] 10 mg RC DAILY PRN #30 supp.rect 04/04/18 RX: Megestrol Acetate [Megace] 800 mg PO DAILY #30 bottle 04/04/18 RX: Albuterol Sulfate [Ventolin 2 puff IH Q4HR PRN #0 04/27/18 Hfa] RX: Metoprolol [Lopressor] 50 mg PO BID #60 tablet 07/22/18 Allergies Allergy/AdvReac Type Severity Reaction Status Date / Time Amoxicillin Allergy unknown Verified 08/26/18 13:14 atropine Allergy unknown Verified 08/26/18 13:14 codeine Allergy See Verified 08/26/18 13:14 Comments Diphenoxylate Allergy unknown Verified 08/26/18 13:14 enalapril Allergy unknown Verified 08/26/18 13:14 esomeprazole Allergy Unknown Verified 08/26/18 13:14 gluten Allergy Diarrhea Verified 08/26/18 13:14 hydromorphone [Hydromorphone] Allergy unknown Verified 08/26/18 13:14 Iodinated Contrast- Oral and Allergy unknown Verified 08/26/18 13:14 IV Dye [Iodinated Contrast Media - IV Dye] nitrofurantoin Allergy unknown Verified 08/26/18 13:14 Penicillins Allergy unkown Verified 08/26/18 13:14 piroxicam Allergy unknown Verified 08/26/18 13:14 Sulfa (Sulfonamide Allergy unknown Verified 08/26/18 13:14 Antibiotics) All systems ED: reviewed and negative except as stated. Constitutional: Denies: fever Cardiovascular: Denies: chest pain Respiratory: Denies: cough, dyspnea, sputum production Gastrointestinal: Denies: abdominal pain, nausea, vomiting, diarrhea, constipation Neurological: Denies: headache, weakness, numbness, paresthesias Past Medical History - Past Medical History Attestation: Yes The following information was validated with the patient. Source: patient Medical history: Reports: atrial fibrillation, COPD, dementia, GERD, hypertension, osteoporosis, thyroid disease, venous stasis, other Surgical history: Reports: no surgical history, thyroidectomy Psychiatric history: Reports: anxiety, depression SHOVEL OILER history: Reports: no SHOVEL OILER history - Social History Smoking Status: Never smoker Smokeless Tobacco Status: No Alcohol use: Reports: none Drug use: Reports: none Physical Exam - General Limitations: altered mental status, other (smells strongly of urine) General appearance: alert, in no apparent distress - Head Head exam: atraumatic, normocephalic, normal inspection - Eye Eye exam: Present: normal appearance, PERRL, EOMI - ENT ENT exam: normal exam, normal oropharynx, mucous membranes moist - Neck Neck exam: Present: normal inspection, full ROM, trachea midline - Chest Chest inspection: Present: normal inspection, symmetric chest wall rise - Respiratory Respiratory exam: Present: normal lung sounds bilaterally. Absent: respiratory distress, wheezes, stridor, accessory muscle use - Cardiovascular Cardiovascular exam: Present: regular rate, normal rhythm, normal heart sounds - Abdominal Exam Abdominal exam: Present: soft, Non-Tender. Absent: tenderness, distention, guarding, rebound, rigidity - Extremities Exam Extremities exam: Present: normal inspection, full ROM. Absent: tenderness, pedal edema - Neurological Exam Neurological exam: Present: alert, CN II-XII intact, other (Pleasantly confused, oriented to person only, answering some questions inappropriately) - Expanded Neurological Exam Patient oriented to: Present: person. Absent: place, time Speech: Present: fluid speech Cranial nerves: EOM function (II, III, IV, ): Normal, facial sensation (V): Normal, facial palsy (VII): Normal, spinal accessory function (XI): Normal, tongue deviation (XII): Normal Motor strength - LUE: 4/5 Motor strength - RUE: 4/5 Motor strength - LLE: 4/5 Motor strength - RLE: 4/5 Coma Scale Eye Opening: Spontaneous Coma Scale Motor Response: Obeys Commands Coma Scale Verbal Response: Confused Coma Scale Total: 14 - Psychiatric Psychiatric exam: Present: normal affect, normal mood - Skin Skin exam: Present: warm, dry, intact, normal color Course Course Narrative: Vital stable. Physical exam shows patient is pleasantly confused. No obvious focal neuro deficits. Patient is oriented to person only. Answering some questions inappropriately. She smells strongly of urine. Concern currently for UTI causing her to be more altered than her usual baseline. However, will also obtain CT the head, basic labs, troponin, chest x-ray, urinalysis, to assess for other causes of AMS. Will place Nuñez catheter. Patient will need to be admitted due to confusion. 22:33 hemoglobin and creatinine near baseline for the patient with chronic anemia and chronic kidney disease. Head CT negative. Chest x-ray negative for any acute cardio pulmonary process. Urinalysis shows large leukocyte esterase. Pending urine drug screen. Concern for UTI housing altered mental status at this time. We will start Rocephin and then admitted for further care. Vital Signs Temperature 99.3 F 11/07/18 20:59 Pulse Rate 108 11/07/18 20:59 Respiratory Rate 18 11/07/18 20:59 Blood Pressure 146/93 11/07/18 20:59 O2 Sat by Pulse Oximetry 98 11/07/18 20:59 Temperature 99.3 F 11/07/18 20:59 Pulse Rate 83 11/07/18 22:18 Respiratory Rate 16 11/07/18 22:18 Blood Pressure 143/85 11/07/18 22:18 O2 Sat by Pulse Oximetry 100 11/07/18 22:18 Oxygen Delivery Oxygen Delivery Room Air Altered Mental Status - MDM Narrative Medical decision making narrative: Vital stable. Physical exam shows patient is pleasantly confused. No obvious focal neuro deficits. Patient is oriented to person only. Answering some questions inappropriately. She smells strongly of urine. Concern currently for UTI causing her to be more altered than her usual baseline. However, will also obtain CT the head, basic labs, troponin, chest x-ray, urinalysis, to assess for other causes of AMS. Will place Nuñez catheter. Patient will need to be admitted due to confusion. 22:33 hemoglobin and creatinine near baseline for the patient with chronic anemia and chronic kidney disease. Head CT negative. Chest x-ray negative for any acute cardio pulmonary process. Urinalysis shows large leukocyte esterase. Pending urine drug screen. Concern for UTI housing altered mental status at this time. We will start Rocephin and then admitted for further care. 22:[address] Nevarez. After he reviewed cultures there has been multiple resistances in the past, he spoke with infectious disease and an additional hospitalist. He stated that he will cancel antibiotic for now until infectious disease sees the patient or will start antibiotic once patient is on the floor. Blood cultures ordered. - Medical Records Medical records reviewed: Yes I reviewed the patient's medical records. - Lab Data Lab results reviewed: Yes I reviewed the patient's lab results. Result diagrams: 11/07/18 21:13 11/07/18 21:13 Lab Results 11/07/18 11/07/18 11/07/18 Range/Units 21:13 21:13 21:13 WBC 7.7 (4.3-11.1) K/mcL RBC 3.49 L (3.82-4.97) M/mcL Hgb 10.8 L (11.5-15.4) g/dL Hct 34.5 L (35.3-44.9) % MCV 98.9 (83.0-100.0) fL MCH 30.9 (28.0-33.3) pg MCHC 31.3 L (31.6-35.5) g/dL RDW 15.0 H (11.5-14.5) % Plt Count 105 L (140-400) K/mcL MPV 12.8 H (9.4-12.4) fL Immature Gran % 1.8 (0-4) % Seg Neutrophils % 70.2 % Lymphocytes % 19.8 % Monocytes % 6.3 % Eosinophils % 1.2 % Basophils % 0.7 % Neutrophils # 5.4 (1.6-8.9) K/mcL Lymphocytes # 1.5 (0.6-4.6) K/mcL Monocytes # 0.5 (0.0-1.3) K/mcL Eosinophils # 0.1 (0.0-0.6) K/mcL Basophils # 0.1 (0.0-0.2) K/mcL PT 12.0 (9.4-12.1) Seconds INR 1.1 APTT 28.4 (26.0-36.0) Seconds Sodium 135 L (136-145) mEq/L Potassium 4.5 (3.5-5.1) mEq/L Chloride 103 (98-107) mEq/L Carbon Dioxide 25 (23-29) mEq/L BUN 33 H (8-23) mg/dL Creatinine 1.68 H (0.60-1.20) mg/dL Est GFR ( Amer) 35 L (> 60) Est GFR (Non-Af Amer) 29 L (> 60) BUN/Creatinine Ratio 20 (6-26) Glucose 96 (70-105) mg/dL Calculated Osmolality 287 (280-300) Calcium 11.2 H (8.6-10.3) mg/dL Total Bilirubin 0.5 (0.3-1.0) mg/dL Direct Bilirubin 0.0 (0.0-0.2) mg/dL Indirect Bilirubin 0.5 (0.0-1.2) mg/dL AST 18 (13-39) Units/L ALT 10 (7-52) Units/L Alkaline Phosphatase 82 (34-104) Units/L Troponin I 0.03 (< 0.04) ng/mL Serum Total Protein 7.1 (6.4-8.9) g/dL Albumin 3.6 (3.5-5.7) g/dL Globulin 3.5 (2.4-3.5) g/dL Albumin/Globulin Ratio 1.0 L (1.1-2.2) Urine Color (Yellow) Urine Clarity (Clear) Urine pH (5.0-8.0) pH Units Ur Specific [place] (1.010-1.025) Urine Protein (Neg-Trace) mg/dL Urine Glucose (UA) (Normal) mg/dL Urine Ketones (Negative) mg/dL Urine Blood (Negative) Urine Nitrite (Negative) Urine Bilirubin (Negative) Urine Urobilinogen (Normal) mg/dL Ur Leukocyte Esterase (Negative) Urine Microscopic RBC (0-3) per hpf Urine Microscopic WBC (0-3) per hpf Ur Squamous Epith Cells (None-Few) per lpf Urine Bacteria (None-Few) per hpf Hyaline Casts (None-Few) per lpf Ur Culture Indicated? (NO) Urine Opiates Screen (Xlqqgz=749) ng/mL Ur Barbiturates Screen (Gekmpl=555) ng/mL Ur Phencyclidine Scrn (Cutoff=25) ng/mL Ur Amphetamines Screen (Cppjgp=9297) ng/mL U Benzodiazepines Scrn (Wekqqd=549) ng/mL Urine Cocaine Screen (Cutoff= 300) ng/mL U Marijuana (THC) Screen (Cutoff = 50) ng/mL Ur Drug Screen Interp 11/07/18 11/07/18 Range/Units 22:15 22:17 WBC (4.3-11.1) K/mcL RBC (3.82-4.97) M/mcL Hgb (11.5-15.4) g/dL Hct (35.3-44.9) % MCV (83.0-100.0) fL MCH (28.0-33.3) pg MCHC (31.6-35.5) g/dL RDW (11.5-14.5) % Plt Count (140-400) K/mcL MPV (9.4-12.4) fL Immature Gran % (0-4) % Seg Neutrophils % % Lymphocytes % % Monocytes % % Eosinophils % % Basophils % % Neutrophils # (1.6-8.9) K/mcL Lymphocytes # (0.6-4.6) K/mcL Monocytes # (0.0-1.3) K/mcL Eosinophils # (0.0-0.6) K/mcL Basophils # (0.0-0.2) K/mcL PT (9.4-12.1) Seconds INR APTT (26.0-36.0) Seconds Sodium (136-145) mEq/L Potassium (3.5-5.1) mEq/L Chloride (98-107) mEq/L Carbon Dioxide (23-29) mEq/L BUN (8-23) mg/dL Creatinine (0.60-1.20) mg/dL Est GFR ( Amer) (> 60) Est GFR (Non-Af Amer) (> 60) BUN/Creatinine Ratio (6-26) Glucose (70-105) mg/dL Calculated Osmolality (280-300) Calcium (8.6-10.3) mg/dL Total Bilirubin (0.3-1.0) mg/dL Direct Bilirubin (0.0-0.2) mg/dL Indirect Bilirubin (0.0-1.2) mg/dL AST (13-39) Units/L ALT (7-52) Units/L Alkaline Phosphatase (34-104) Units/L Troponin I (< 0.04) ng/mL Serum Total Protein (6.4-8.9) g/dL Albumin (3.5-5.7) g/dL Globulin (2.4-3.5) g/dL Albumin/Globulin Ratio (1.1-2.2) Urine Color Yellow (Yellow) Urine Clarity Cloudy A (Clear) Urine pH 7.0 (5.0-8.0) pH Units Ur Specific [place] 1.014 (1.010-1.025) Urine Protein 30 H (Neg-Trace) mg/dL Urine Glucose (UA) Normal (Normal) mg/dL Urine Ketones Negative (Negative) mg/dL Urine Blood Negative (Negative) Urine Nitrite Negative (Negative) Urine Bilirubin Negative (Negative) Urine Urobilinogen Normal (Normal) mg/dL Ur Leukocyte Esterase Large H (Negative) Urine Microscopic RBC 5-15 H (0-3) per hpf Urine Microscopic WBC TNTC H (0-3) per hpf Ur Squamous Epith Cells Moderate H (None-Few) per lpf Urine Bacteria None Seen (None-Few) per hpf Hyaline Casts None Seen (None-Few) per lpf Ur Culture Indicated? YES A (NO) Urine Opiates Screen Negative (Trbvdz=211) ng/mL Ur Barbiturates Screen Negative (Sarczo=705) ng/mL Ur Phencyclidine Scrn Negative (Cutoff=25) ng/mL Ur Amphetamines Screen Negative (Sbvwgf=4630) ng/mL U Benzodiazepines Scrn Negative (Zmhpov=500) ng/mL Urine Cocaine Screen Negative (Cutoff= 300) ng/mL U Marijuana (THC) Screen Negative (Cutoff = 50) ng/mL Ur Drug Screen Interp See Below - Radiology Data Radiology results reviewed: Yes I reviewed the patient's radiology results. Chest X-Ray 11/07/18 21:03 IMPRESSION: 1. Improving left basilar pleuroparenchymal disease, probably partially due to scarring. 2. Improved pulmonary edema. D/ / Barney Ruby MD / Barney Ruby MD Interpreting Provider: Barney Ruby MD Head CT 11/07/18 21:04 IMPRESSION: No acute intracranial abnormality. D/ / Jose Ramon Santillan MD / Jose Ramon Santillan MD Interpreting Provider: Jose Ramon Santillan MD Checklist - LKW: 3-4.5 hrs Add. Warnings/Precautions Patient/family understanding: The patient/family members have been counseled and understood the risk, benefit, and alternatives of treatment. S.B.Garrison - Steph.Kevin Situation: Demographics, MOA Background: Presenting Complaint, Relevant PMH, Meds, & Allergies Assessment: Vital Signs, Course and respsone to treatment, Exam Concerns, Patient/Family Expectation, Pertinant Lab Results Recommendation: Barrier(s) to disposition, Recommendation based on pending studies, treatments, or consults S.B.AMelida Report Given to: Dr. Geri Mansfield Repor Time: 22:49 Attestation Statement - Attestation Attestation: Resident Attestation: I examined this patient and my medical decision making was reviewed with the Resident Physician. I agree with the documented findings, disposition and treatment plan as described except to the extent set forth below. We independently had [id number] contact with the patient. Patient presenting to the emergency department for evaluation of altered mental status. Patient family reports that she was talking "out of her head". Patient has been like this in the past with acute renal failure and infections. This time patient is awake alert and oriented 2. She thinks that is 2015. Patient is otherwise able to follow my commands. At this time the patient is undergoing further evaluation of her electrolytes as well as kidney function and workup for urinary tract infection as well as other means of altered mental status. Patient with likely UTI as this happened multiple times in the past but similar per family. Patient abdomen is soft nontender palpation without guarding or rebound. Urinalysis shows concern for UTI. Workup was otherwise unremarkable for specific underlying etiology. Patient has had positive blood cultures in the past and has had multiple resistance patterns. Ceftriaxone was initially ordered. Hospitalist requests ceftriaxone to be canceled and will further determine which antibiotics they prefer. Patient is stable at this time. Patient is stable for admission.
[2018-11-07 21:25] LABS: Basophils # 0.1 K/mcL (0.0-0.2); Basophils % 0.7 %; Eosinophils # 0.1 K/mcL (0.0-0.6); Eosinophils % 1.2 %; Hematocrit 34.5 % (35.3-44.9); Hemoglobin 10.8 g/dL (11.5-15.4); Immature Granulocytes % 1.8 % (0-4); Lymphocytes # 1.5 K/mcL (0.6-4.6); Lymphocytes % 19.8 %; Mean Corpuscular HGB Conc 31.3 g/dL (31.6-35.5); Mean Corpuscular Hemoglobin 30.9 pg (28.0-33.3); Mean Corpuscular Volume 98.9 fL (83.0-100.0); Mean Platelet Volume 12.8 fL (9.4-12.4); Monocytes # 0.5 K/mcL (0.0-1.3); Monocytes % 6.3 %; Neutrophils # 5.4 K/mcL (1.6-8.9); Platelet Count 105 K/mcL (140-400); Red Blood Count 3.49 M/mcL (3.82-4.97); Segmented Neutrophils % 70.2 %
[2018-11-07 21:39] LABS: INR 1.1
[2018-11-07 21:41] LABS: Activated Partial Thrombo Time 28.4 Seconds (26.0-36.0)
[2018-11-07 21:45] LABS: Albumin 3.6 g/dL (3.5-5.7); Bilirubin,Indirect 0.5 mg/dL (0.0-1.2); Bilirubin,Total 0.5 mg/dL (0.3-1.0); Calcium 11.2 mg/dL (8.6-10.3); Globulin 3.5 g/dL (2.4-3.5); Potassium 4.5 mEq/L (3.5-5.1); Total Protein 7.1 g/dL (6.4-8.9); Troponin I 0.03 ng/mL (< 0.04)
[2018-11-07 22:26] LABS: Bilirubin,Urine Negative (Negative); Blood,Urine Negative (Negative); Clarity,Urine Cloudy (Clear); Color,Urine Yellow (Yellow); Glucose,Urine (UA) Normal (Normal); Ketones,Urine Negative (Negative); Leukocyte Esterase,Urine Large (Negative); Nitrite,Urine Negative (Negative); Protein,Urine 30 mg/dL (Neg-Trace); Specific Gravity,Urine 1.014 (1.010-1.025); Urobilinogen,Urine Normal (Normal)
[2018-11-07 22:29] LABS: Bacteria,Urine None Seen per hpf (None-Few); Hyaline Casts,Urine None Seen per lpf (None-Few); Squamous Epithelial Cell,Urine Moderate per lpf (None-Few); WBC,Urine TNTC per hpf (0-3)
[2018-11-07] MEDS ORDERED: cefTRIAXone 1,000 MG in Water for inj. (sterile) 20 ML 10 ML IVP ONE (22:32)
[2018-11-07 22:37] LABS: Amphetamine Screen,Urine Negative ng/mL (Cutoff=1000); Barbiturate Screen,Urine Negative ng/mL (Cutoff=200); Benzodiazepines Screen,Urine Negative ng/mL (Cutoff=200); Cannabinoid Screen,Urine Negative ng/mL (Cutoff = 50); Cocaine Screen,Urine Negative ng/mL (Cutoff= 300); Opiate Screen,Urine Negative ng/mL (Cutoff=300); Phencyclidine Screen,Urine Negative ng/mL (Cutoff=25)
[2018-11-08] MEDS ORDERED: Naloxone 0.4 MG/ML INJ IVP PRN (02:28)
--- NOTE | 2018-11-08 02:39 | Internal Med History&Physical ---
Date of Encounter: 11/08/18 Time of Encounter: 02:36 Internal Medicine - H&P: HPI Chief complaint: Altered mental status History of present illness: Ms. Griffin is a 83 year old female with a past medical history of celiac disease, COPD, dementia, recurrent UTIs, atrial fibrillation among others who presented to the ED from her shelter due to altered mental status. Due to change in patient's mentation I was unable to obtain a history. At present patient is alert to person only. Per reports patient is altered above her baseline. No reports of fever, chills, cough, chest pain, shortness of breath, abdominal pain or diarrhea. On arrival patient was found to be afebrile, hemodynamically stable and saturating at 100% on room air. Laboratory workup was relatively unremarkable aside from a elevated calcium of 11.1. Of note, patient was admitted for with similar presentation in September and also found to have a elevated calcium level and her supplemental calcium dose has been adjusted multiple times in the past in due to elevated calcium levels. She has also had admissions for UTI in the past and her UA on this admission did show large leukocyte esterase. Imaging of the head was unremarkable. Past Med Surg Social Fam HX - Past Medical History Medical history: atrial fibrillation, COPD, dementia, GERD, hypertension, osteoporosis, thyroid disease, venous stasis, other Additional medical history: hiatal hernia, parkinsons Psychiatric history: anxiety, depression - Past Surgical History Surgical History: no surgical history, thyroidectomy Additional surgical history: codi leg surgery for varicose veins - Social History Smoking Status: Never smoker Smokeless Tobacco Status: No Alcohol use: none Drug use: none - Family History Father Living Status: Hx Family Cardiac Disorders: Yes Mother Living Status: Hx Family Cardiac Disorders: Yes Internal Medicine - H&P: Meds Acetaminophen [Tylenol] 650 mg PO Q6HR PRN 09/14/15 [History] Budesonide/Formoterol 160/4.5 [Symbicort 160/4.5] 2 puff IH BID 09/14/15 [History] Docusate [Colace] 100 mg PO BID 09/14/15 [History] Folic Acid 1 mg PO DAILY 09/14/15 [History] Magnesium Oxide [Magnesium] 400 mg PO DAILY 09/14/15 [History] Memantine HCl [Namenda Xr] 28 mg PO DAILY 09/14/15 [History] Omeprazole [PriLOSEC] 20 mg PO DAILY 09/14/15 [History] Azelastine 0.1% Nasal [place] [Astelin] 2 spr NS BID 05/19/17 [History] Carbidopa/Levodopa ER 50/200 [Sinemet ER 50-200 Tab] 1 tab PO BID 05/19/17 [History] Lactobacillus Acidophilus [Acidophilus] 1 cap PO BID 05/19/17 [History] Magnesium Hydroxide [Milk of Magnesia] 30 ml PO DAILY PRN 05/19/17 [History] Quetiapine Fumarate [Seroquel] 12.5 mg PO HS 02/28/18 [History] Bisacodyl [Dulcolax] 10 mg RC DAILY PRN #30 supp.rect 04/04/18 [Rx] Megestrol Acetate [Megace] 800 mg PO DAILY #30 bottle 04/04/18 [Rx] Mirtazapine 7.5 mg PO HS 04/25/18 [History] Paroxetine HCl [Paxil] 20 mg PO DAILY 04/25/18 [History] Albuterol Sulfate [Ventolin Hfa] 2 puff IH Q4HR PRN #0 04/27/18 [Rx] Ferrous Sulfate [Iron] 325 mg PO DAILY 07/15/18 [History] Metoprolol [Lopressor] 50 mg PO BID #60 tablet 07/22/18 [Rx] Calcitriol 1 mcg PO DAILY 09/18/18 [History] Trimethoprim 100 mg PO HS 09/18/18 [History] Allergy/AdvReac Type Severity Reaction Status Date / Time Amoxicillin Allergy unknown Verified 08/26/18 13:14 atropine Allergy unknown Verified 08/26/18 13:14 codeine Allergy See Verified 08/26/18 13:14 Comments Diphenoxylate Allergy unknown Verified 08/26/18 13:14 enalapril Allergy unknown Verified 08/26/18 13:14 esomeprazole Allergy Unknown Verified 08/26/18 13:14 gluten Allergy Diarrhea Verified 08/26/18 13:14 hydromorphone [Hydromorphone] Allergy unknown Verified 08/26/18 13:14 Iodinated Contrast- Oral and Allergy unknown Verified 08/26/18 13:14 IV Dye [Iodinated Contrast Media - IV Dye] nitrofurantoin Allergy unknown Verified 08/26/18 13:14 Penicillins Allergy unkown Verified 08/26/18 13:14 piroxicam Allergy unknown Verified 08/26/18 13:14 Sulfa (Sulfonamide Allergy unknown Verified 08/26/18 13:14 Antibiotics) All Systems PM: A 10-system review of systems was performed and is negative for pertinent findings except as documented above in the HPI. - Constitutional Constitutional: no chills, no fever(s), no night sweats - EENT Eyes: no change in vision, no discharge, no pain, no photophobia Ears: no ear discharge, no ear pain, no tinnitus Nose, mouth and throat: no dysphagia, no nasal discharge, no neck pain, no sore throat - Cardiovascular Cardiovascular ROS IM: no chest pain, no diaphoresis, no dyspnea, no lightheadedness, no palpitations, no syncope - Respiratory Respiratory: no cough, no dyspnea, no wheezing, no excessive phlegm production - Gastrointestinal Gastrointestinal: no abdominal pain, no diarrhea, no hematemesis, no hematochezia, no melena, no nausea, no vomiting - Genitourinary Genitourinary: no change in urinary stream, no dysuria, no flank pain, no hematuria - Musculoskeletal Musculoskeletal ROS IM: no numbness, no tingling - Integumentary Integumentary IM: no rash, no unusual bruising - Neurological Neurological ROS: no confusion, no convulsions, no focal weakness, no numbness, no tingling, no tremor(s) - Hematologic/Lymphatic Hematologic/Lymphatic: no easy bruising - Constitutional Vitals: Temp Pulse Resp BP Pulse Ox 98.2 F 75 16 167/91 98 11/08/18 00:26 11/08/18 00:26 11/08/18 00:26 11/08/18 00:26 11/08/18 00:26 Exam: General: Alert and oriented Skin:Normal color, no rash, no lesions. HEENT:EOM, pupils equal, round and reactive. Cardiovascular:Normal S1 & S2, no rubs, murmurs or gallops. No JVD. Pulse regular. Lungs:Normal breath sounds, no wheezes or crackles. Abdomen:Soft, non-tender, no rigidity. Extremities:No deformity, no edema or tenderness, no joint swelling or clubbing. Neurological:Normal cognition and motor skills. Pulses:Carotid and radial pulses normal +2. Rest of the physical exam is non contributory Internal Med - H&P Results - Labs CBC & Chem 7: 11/08/18 04:49 11/08/18 04:49 Labs: Short CBC 11/07/18 Range/Units 21:13 WBC 7.7 (4.3-11.1) K/mcL Hgb 10.8 L (11.5-15.4) g/dL Hct 34.5 L (35.3-44.9) % Plt Count 105 L (140-400) K/mcL Neutrophils # 5.4 (1.6-8.9) K/mcL BMP 11/07/18 21:13 Sodium 135 L Potassium 4.5 Chloride 103 Carbon Dioxide 25 BUN 33 H Creatinine 1.68 H Glucose 96 Calcium 11.2 H Cardiac Enzymes 11/07/18 Range/Units 21:13 Troponin I 0.03 (< 0.04) ng/mL Liver Function 11/07/18 Range/Units 21:13 Total Bilirubin 0.5 (0.3-1.0) mg/dL Direct Bilirubin 0.0 (0.0-0.2) mg/dL AST 18 (13-39) Units/L ALT 10 (7-52) Units/L Alkaline Phosphatase 82 (34-104) Units/L Albumin 3.6 (3.5-5.7) g/dL Urine 11/07/18 Range/Units 22:15 Urine Color Yellow (Yellow) Urine Clarity Cloudy A (Clear) Urine pH 7.0 (5.0-8.0) pH Units Ur Specific [place] 1.014 (1.010-1.025) Urine Protein 30 H (Neg-Trace) mg/dL Urine Glucose (UA) Normal (Normal) mg/dL - Impressions ITS Impressions Chest X-Ray 11/07/18 21:03 IMPRESSION: 1. Improving left basilar pleuroparenchymal disease, probably partially due to scarring. 2. Improved pulmonary edema. D/ / Barney Ruby MD / Barney Ruby MD Interpreting Provider: Barney Ruby MD Head CT 11/07/18 21:04 IMPRESSION: No acute intracranial abnormality. D/ / Jose Ramon Santillan MD / Jose Ramon Santillan MD Interpreting Provider: Jose Ramon Santillan MD - Assessment and Plan (1) Altered mental status Current Visit: Yes Status: Acute Assessment and plan: Altered mental status possibly multifactorial in the setting of hypercalcemia a nd possible UTI. CT scan of the head was negative for any acute intracranial after malady. -We will continue with IV fluids -We will give patient one-time dose of meropenem -Follow-up blood and urine cultures Qualifiers: Altered mental status type: unspecified Qualified Code(s): R41.82 - Altered mental status, unspecified (2) UTI (urinary tract infection) Current Visit: Yes Status: Acute Qualifiers: Urinary tract infection type: site unspecified Hematuria presence: without hematuria Qualified Code(s): N39.0 - Urinary tract infection, site not specified (3) Hypercalcemia Current Visit: Yes Status: Acute Assessment and plan: Calcium of 11.2 on presentation with previous elevations in calcium in the past. 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 Patient appears to be at baseline in terms of her kidney function though she does appear dry. -Hold calcium supplement. -We will start patient on maintenance fluids. -Consider Lasix once kidney function improves (4) Chronic kidney disease Current Visit: Yes Status: Acute Assessment and plan: Baseline creatinine around 1.7. Creatinine on admission 1.68 -We will continue fluids for now in the setting of hypercalcemia. -Monitor kidney function. Qualifiers: Chronic kidney disease stage: unspecified stage Qualified Code(s): N18.9 - Chronic kidney disease, unspecified (5) Anemia Current Visit: Yes Status: Acute Assessment and plan: Normocytic anemia of 10.8 which is at or near patient's baseline. Qualifiers: Qualified Code(s): D64.9 - Anemia, unspecified (6) COPD (chronic obstructive pulmonary disease) Current Visit: No Status: Chronic Assessment and plan: No evidence of acute exacerbation. Continue with home inhalers. Qualifiers: COPD type: emphysema Emphysema type: unspecified Qualified Code(s): J43.9 - Emphysema, unspecified (7) Dementia Current Visit: No Status: Chronic Assessment and plan: Resume home medications Qualifiers: Dementia type: Parkinson's disease Dementia behavioral disturbance: without behavioral disturbance Qualified Code(s): G20 - Parkinson's disease; F02.80 - Dementia in other diseases classified elsewhere without behavioral disturbance (8) DVT prophylaxis Current Visit: No Status: Acute Assessment and plan: Subcutaneous heparin - Time Spent With Patient Total time spent is greater than 50% in coordination of care (as documented) at patient's floor/unit and/or counseling patient:
[2018-11-08] MEDS ORDERED: Meropenem 500 MG in 0.9 % Sodium Chloride Mini Bag 100 ML IVPB SCH (03:00)
[2018-11-08] MEDS ORDERED: 0.9 % Sodium Chloride 1,000 ML IVC SCH (03:30)
[2018-11-08 05:34] LABS: Basophils % 0.8 %; Eosinophils % 1.6 %; Mean Corpuscular HGB Conc 31.4 g/dL (31.6-35.5); Mean Corpuscular Hemoglobin 30.8 pg (28.0-33.3); Monocytes % 7.2 %; Red Cell Distribution Width 14.9 % (11.5-14.5)
[2018-11-08 05:36] LABS: Basophils # 0.1 K/mcL (0.0-0.2); Eosinophils # 0.1 K/mcL (0.0-0.6); Hematocrit 34.4 % (35.3-44.9); Hemoglobin 10.8 g/dL (11.5-15.4); Immature Platelets 10.7 % (1.1-6.1); Lymphocytes # 1.4 K/mcL (0.6-4.6); Lymphocytes % 21.4 %; Mean Platelet Volume 12.6 fL (9.4-12.4); Monocytes # 0.5 K/mcL (0.0-1.3); Neutrophils # 4.3 K/mcL (1.6-8.9); Red Blood Count 3.51 M/mcL (3.82-4.97)
[2018-11-08 05:41] LABS: INR 1.1; Prothrombin Time 12.1 Seconds (9.4-12.1)
[2018-11-08 05:44] LABS: Activated Partial Thrombo Time 27.1 Seconds (26.0-36.0)
[2018-11-08 05:49] LABS: Albumin 3.6 g/dL (3.5-5.7); Albumin/Globulin Ratio 1.2 (1.1-2.2); Bilirubin,Total 0.4 mg/dL (0.3-1.0); Calcium 10.6 mg/dL (8.6-10.3); Globulin 3.1 g/dL (2.4-3.5); Magnesium 1.7 mg/dL (1.6-2.6); Potassium 4.1 mEq/L (3.5-5.1); Total Protein 6.7 g/dL (6.4-8.9)
[2018-11-08 06:00] LABS: Platelet Count 92 K/mcL (140-400)
[2018-11-08 06:02] LABS: Platelet Estimate Slight Decrease (Normal)
[2018-11-08] MEDS: *HR* Heparin 5,000 UNIT/ML VIAL SQ SCH ×3 (06:13→21:52)
[2018-11-08] MEDS ORDERED: Bisacodyl 10 MG RECTAL SUPPOSITORY RC PRN (08:40)
[2018-11-08] MEDS: Magnesium Oxide 400 MG TABLET PO SCH (10:37)
[2018-11-08] MEDS: Carbidopa/Levodopa ER 50/200 TABLET PO SCH ×3 (10:37→20:08)
--- NOTE | 2018-11-08 10:43 | Discharge Summary ---
<Guerrero Calhoun - Last Filed: 11/08/18 10:39> - NOTES TO OUTPATIENT PROVIDER Notes to Outpatient Provider: Presented with altered mental status secondary 2nd to UTI, however UTI ruled out. AMS 2nd to parkinsons's and dementia. Mental status today is back to baseline and she will be sent back to her ECF. Orders not resulted at time of discharge: Pending orders 11/07/18 22:15 Culture,Urine [RM] Stat 11/07/18 22:57 Culture,Blood [BC] Stat Date of Encounter: 11/08/18 Time of Encounter: 10:40 - Discharge Diagnosis (1) Altered mental status Priority: Primary Status: Resolved Assessment and Plan: resolved. Chest x-ray and CT head were negative With history of Parkinson's disease and dementia patient can have fluctuating levels of consciousness that sometimes may get misinterpreted for altered mental status. Furthermore she is on Sinemet, Paxil, Seroquel, mirtazapine which may cause the symptoms as well. Patient's baseline mental status she is alert to self only. She follows commands when asked and she is able to eat her breakfast independently. She is she is at her baseline level discharge her back to ECF. Qualifiers: Altered mental status type: unspecified Qualified Code(s): R41.82 - Altered mental status, unspecified (2) Anemia Priority: Secondary Status: Chronic Assessment and Plan: Stable. Qualifiers: Anemia type: other cause Other causes of anemia: chronic disease, other Qualified Code(s): D63.8 - Anemia in other chronic diseases classified elsewhere (3) Chronic kidney disease Priority: Secondary Status: Acute Assessment and Plan: Stable. Qualifiers: Chronic kidney disease stage: unspecified stage Qualified Code(s): N18.9 - Chronic kidney disease, unspecified (4) Dementia Priority: Secondary Status: Chronic Assessment and Plan: Continue memantine Qualifiers: Dementia type: Parkinson's disease Dementia behavioral disturbance: without behavioral disturbance Qualified Code(s): G20 - Parkinson's disease; F02.80 - Dementia in other diseases classified elsewhere without behavioral disturbance (5) UTI (urinary tract infection) Priority: Secondary Status: Ruled-out Assessment and Plan: A she shows no signs of infection and denies burning when going to the bathroom She has a Nuñez catheter in place when I entered the room unclear if this is from alf or placed in the emergency room. 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 Qualifiers: Urinary tract infection type: acute cystitis Hematuria presence: without hematuria Qualified Code(s): N30.00 - Acute cystitis without hematuria (6) Hypercalcemia Priority: Secondary Status: Resolved Assessment and Plan: low calcium diet Hospital course: Ms. Griffin is a 83 year old female presented with altered mental status initially thought secondary to UTI however UTI was ruled out. Altered mental status likely secondary to chronic diseases of Parkinson's and dementia. Patient was given 1 dose of meropenem at this was continued likely her urine is colonized. Furthermore overtime patient has developed resistant bacteria secondary to repeated treatment of urinary tract infections. Patient does have a high calcium and would recommend a low calcium diet furthermore she has a history of dementia and needs to be monitored with strict intakes and outputs at [facility] to ensure proper intake of fluids. Avoid calcium supplementations. Discharge discussed with: nurse, social work - Time Spent with Patient Total time spent providing and/or coordinating discharge services: - Discharge Medications Prescriptions: Continue Acetaminophen [Tylenol] 650 mg PO Q6HR PRN PRN Reason: Pain Folic Acid 1 mg PO DAILY Budesonide/Formoterol 160/4.5 [Symbicort 160/4.5] 2 puff IH BID Omeprazole [PriLOSEC] 20 mg PO DAILY Docusate [Colace] 100 mg PO BID Memantine HCl [Namenda Xr] 28 mg PO DAILY Magnesium Oxide [Magnesium] 400 mg PO DAILY Carbidopa/Levodopa ER 50/200 [Sinemet ER 50-200 Tab] 1 tab PO BID Azelastine 0.1% Nasal [place] [Astelin] 2 spr NS BID Lactobacillus Acidophilus [Acidophilus] 1 cap PO BID Magnesium Hydroxide [Milk of Magnesia] 30 ml PO DAILY PRN PRN Reason: Constipation Quetiapine Fumarate [Seroquel] 12.5 mg PO HS Bisacodyl [Dulcolax] 10 mg RC DAILY PRN #30 supp.rect PRN Reason: Constipation Megestrol Acetate [Megace] 800 mg PO DAILY #30 bottle Mirtazapine 7.5 mg PO HS Paroxetine HCl [Paxil] 20 mg PO DAILY Albuterol Sulfate [Ventolin Hfa] 2 puff IH Q4HR PRN #0 PRN Reason: Dyspnea Ferrous Sulfate [Iron] 325 mg PO DAILY Calcitriol 1 mcg PO DAILY Trimethoprim 100 mg PO HS No Action Levothyroxine Sodium [Euthyrox] 175 mcg PO DAILY Metoprolol Tartrate [Lopressor] 50 mg PO BID Home Medications: Acetaminophen [Tylenol] 650 mg PO Q6HR PRN 09/14/15 [History] Budesonide/Formoterol 160/4.5 [Symbicort 160/4.5] 2 puff IH BID 09/14/15 [History] Docusate [Colace] 100 mg PO BID 09/14/15 [History] Folic Acid 1 mg PO DAILY 09/14/15 [History] Magnesium Oxide [Magnesium] 400 mg PO DAILY 09/14/15 [History] Memantine HCl [Namenda Xr] 28 mg PO DAILY 09/14/15 [History] Omeprazole [PriLOSEC] 20 mg PO DAILY 09/14/15 [History] Azelastine 0.1% Nasal [place] [Astelin] 2 spr NS BID 05/19/17 [History] Carbidopa/Levodopa ER 50/200 [Sinemet ER 50-200 Tab] 1 tab PO BID 05/19/17 [History] Lactobacillus Acidophilus [Acidophilus] 1 cap PO BID 05/19/17 [History] Magnesium Hydroxide [Milk of Magnesia] 30 ml PO DAILY PRN 05/19/17 [History] Quetiapine Fumarate [Seroquel] 12.5 mg PO HS 02/28/18 [History] Bisacodyl [Dulcolax] 10 mg RC DAILY PRN #30 supp.rect 04/04/18 [Rx] Megestrol Acetate [Megace] 800 mg PO DAILY #30 bottle 04/04/18 [Rx] Mirtazapine 7.5 mg PO HS 04/25/18 [History] Paroxetine HCl [Paxil] 20 mg PO DAILY 04/25/18 [History] Albuterol Sulfate [Ventolin Hfa] 2 puff IH Q4HR PRN #0 04/27/18 [Rx] Ferrous Sulfate [Iron] 325 mg PO DAILY 07/15/18 [History] Calcitriol 1 mcg PO DAILY 09/18/18 [History] Trimethoprim 100 mg PO HS 09/18/18 [History] Levothyroxine Sodium [Euthyrox] 175 mcg PO DAILY 11/08/18 [History] Metoprolol Tartrate [Lopressor] 50 mg PO BID 11/08/18 [History] Allergies/Adverse Reactions: Allergy/AdvReac Type Severity Reaction Status Date / Time Amoxicillin Allergy unknown Verified 08/26/18 13:14 atropine Allergy unknown Verified 08/26/18 13:14 codeine Allergy See Verified 08/26/18 13:14 Comments Diphenoxylate Allergy unknown Verified 08/26/18 13:14 enalapril Allergy unknown Verified 08/26/18 13:14 esomeprazole Allergy Unknown Verified 08/26/18 13:14 gluten Allergy Diarrhea Verified 08/26/18 13:14 hydromorphone [Hydromorphone] Allergy unknown Verified 08/26/18 13:14 Iodinated Contrast- Oral and Allergy unknown Verified 08/26/18 13:14 IV Dye [Iodinated Contrast Media - IV Dye] nitrofurantoin Allergy unknown Verified 08/26/18 13:14 Penicillins Allergy unkown Verified 08/26/18 13:14 piroxicam Allergy unknown Verified 08/26/18 13:14 Sulfa (Sulfonamide Allergy unknown Verified 08/26/18 13:14 Antibiotics) Date of admission: 11/07/18 22:51 Primary care physician: Braden Garibay MD Discharging clinician: Guerrero Calhoun Anticipated date of discharge: 11/08/18 - Constitutional Vitals: Temp Pulse Resp BP Pulse Ox 97.2 F L 75 16 117/78 98 11/08/18 10:23 11/08/18 10:23 11/08/18 10:23 11/08/18 10:23 11/08/18 10:23 Exam: General: pleasant, without distress, follows commands HEENT: Head atraumatic, normocephalic, EOMI, PERRL, absent ear discharge or trauma, Moist Mucous Membranes, uvula midline Neck: nontender to palpation, absent lymphadenopathy, Cardiovascualr: Regular rate and rhythm with no murmur, absent gallops or rubs, absent pedal edema, radial pulses 2 out of 4 Lungs: Clear to auscultation bilaterally, not in respiratory distress Abdomen: Soft nontender, nondistended positive bowel sounds, Skin: warm and dry, absent rash, absent open wounds and nodules MSK: absent clubbing, cyanosis, joints without swelling Neuro: Motor function grossly intact, alert and oriented to self, but not time place or situation Psych: calm - Patient Status Disposition: Transfer SNF Condition: Good Functional capacity at discharge: wheelchair bound Overall status at discharge: patient is back to baseline - Discharge Instructions Follow Up With: Braden Garibay MD [Primary Care Provider] - 11/18/18 10:30 am (Follow up as scheduled. ) - Diet and Activity Activity: increase activity as tolerated Diet: advance to your usual diet <Beverly Gaitan - Last Filed: 11/08/18 15:51> Orders not resulted at time of discharge: Pending orders 11/07/18 22:15 Culture,Urine [RM] Stat 11/07/18 22:57 Culture,Blood [BC] Stat Date of Encounter: 11/08/18 - Discharge Diagnosis (1) Dementia Status: Chronic Qualifiers: Dementia type: Parkinson's disease Dementia behavioral disturbance: without behavioral disturbance Qualified Code(s): G20 - Parkinson's disease; F02.80 - Dementia in other diseases classified elsewhere without behavioral disturbance (2) DVT prophylaxis Status: Acute (3) COPD (chronic obstructive pulmonary disease) Status: Chronic Qualifiers: COPD type: emphysema Emphysema type: unspecified Qualified Code(s): J43.9 - Emphysema, unspecified (4) UTI (urinary tract infection) Status: Acute Qualifiers: Urinary tract infection type: site unspecified Hematuria presence: without hematuria Qualified Code(s): N39.0 - Urinary tract infection, site not specified (5) Altered mental status Status: Resolved Qualifiers: Altered mental status type: unspecified Qualified Code(s): R41.82 - Altered mental status, unspecified (6) Hypercalcemia Status: Acute (7) Chronic kidney disease Status: Acute Qualifiers: Chronic kidney disease stage: unspecified stage Qualified Code(s): N18.9 - Chronic kidney disease, unspecified (8) Anemia Status: Acute Qualifiers: Qualified Code(s): D64.9 - Anemia, unspecified Hospital course: Ms. Griffin is a 83 year old female - Time Spent with Patient Total time spent providing and/or coordinating discharge services: Date of admission: 11/07/18 22:51 Primary care physician: Braden Garibay MD - Constitutional Vitals: Temp Pulse Resp BP Pulse Ox 97.5 F L 97 15 100/66 96 11/08/18 14:56 11/08/18 14:56 11/08/18 14:56 11/08/18 14:56 11/08/18 14:56 - Attending Attestation i have seen and independently assessed this patient and I agree with plan except as noted Plan Altered mental status possibly 2/2 to dehydration, UTI and parkinson's disease. Will continue IV fluids and antibiotics for one more day. continue to monitor creatinine which is trending down. Likely discharge in am
[2018-11-08] MEDS: Budesonide/Formoterol 160/4.5 1 PUFF INH IH SCH ×2 (10:53→20:07)
--- NOTE | 2018-11-08 10:57 | Physician Discharge Referral ---
[facility] Referral Info Transfer To: ecf Provider in Charge: Dr. Powell Provider in Charge after Transfer: PCP Institutional Level of Care: Intermediate - Diagnosis (1) Altered mental status Priority: Primary Status: Resolved (2) Anemia Priority: Secondary Status: Chronic (3) Chronic kidney disease Priority: Secondary Status: Acute (4) Dementia Priority: Secondary Status: Chronic (5) UTI (urinary tract infection) Priority: Secondary Status: Ruled-out (6) Hypercalcemia Priority: Secondary Status: Resolved - Transfer Medications Home Medications: Acetaminophen [Tylenol] 650 mg PO Q6HR PRN 09/14/15 [History] Budesonide/Formoterol 160/4.5 [Symbicort 160/4.5] 2 puff IH BID 09/14/15 [History] Docusate [Colace] 100 mg PO BID 09/14/15 [History] Folic Acid 1 mg PO DAILY 09/14/15 [History] Magnesium Oxide [Magnesium] 400 mg PO DAILY 09/14/15 [History] Memantine HCl [Namenda Xr] 28 mg PO DAILY 09/14/15 [History] Omeprazole [PriLOSEC] 20 mg PO DAILY 09/14/15 [History] Azelastine 0.1% Nasal [place] [Astelin] 2 spr NS BID 05/19/17 [History] Carbidopa/Levodopa ER 50/200 [Sinemet ER 50-200 Tab] 1 tab PO BID 05/19/17 [History] Lactobacillus Acidophilus [Acidophilus] 1 cap PO BID 05/19/17 [History] Magnesium Hydroxide [Milk of Magnesia] 30 ml PO DAILY PRN 05/19/17 [History] Quetiapine Fumarate [Seroquel] 12.5 mg PO HS 02/28/18 [History] Bisacodyl [Dulcolax] 10 mg RC DAILY PRN #30 supp.rect 04/04/18 [Rx] Megestrol Acetate [Megace] 800 mg PO DAILY #30 bottle 04/04/18 [Rx] Mirtazapine 7.5 mg PO HS 04/25/18 [History] Paroxetine HCl [Paxil] 20 mg PO DAILY 04/25/18 [History] Albuterol Sulfate [Ventolin Hfa] 2 puff IH Q4HR PRN #0 04/27/18 [Rx] Ferrous Sulfate [Iron] 325 mg PO DAILY 07/15/18 [History] Metoprolol [Lopressor] 50 mg PO BID #60 tablet 07/22/18 [Rx] Calcitriol 1 mcg PO DAILY 09/18/18 [History] Trimethoprim 100 mg PO HS 09/18/18 [History] Allergies/Adverse Reactions: Allergy/AdvReac Type Severity Reaction Status Date / Time Amoxicillin Allergy unknown Verified 08/26/18 13:14 atropine Allergy unknown Verified 08/26/18 13:14 codeine Allergy See Verified 08/26/18 13:14 Comments Diphenoxylate Allergy unknown Verified 08/26/18 13:14 enalapril Allergy unknown Verified 08/26/18 13:14 esomeprazole Allergy Unknown Verified 08/26/18 13:14 gluten Allergy Diarrhea Verified 08/26/18 13:14 hydromorphone [Hydromorphone] Allergy unknown Verified 08/26/18 13:14 Iodinated Contrast- Oral and Allergy unknown Verified 08/26/18 13:14 IV Dye [Iodinated Contrast Media - IV Dye] nitrofurantoin Allergy unknown Verified 08/26/18 13:14 Penicillins Allergy unkown Verified 08/26/18 13:14 piroxicam Allergy unknown Verified 08/26/18 13:14 Sulfa (Sulfonamide Allergy unknown Verified 08/26/18 13:14 Antibiotics) - Respiratory Orders Smoking Cessation: Smoking cessation has been advised. For more information, call the [place] Tobacco Quit Line at 0-597-VVVD-NOW. - Advance Directives Code Status: Full Code - Mobility Orders Chair - Treatments Skin tear care topically daily PRN per policy - Diet Orders Cardiac (gluten free mechanically altered diet ground meet pt requires feeding assistance) CERTIFICATION: I certify that the transfer of the above named patient to an Extended Care Facility is necessary for the continuing treatment of the diagnosis listed. The above information is true and accurate reflection of patient's current condition. Confidential - Redisclosure prohibited without a patient's written consent.
[2018-11-08] MEDS: Meropenem 500 MG in Water for inj. (sterile) 20 ML 10 ML IVP SCH (14:08)
[2018-11-08] MEDS: 0.9 % Sodium Chloride 1,000 ML IVC SCH ×2 (14:24→23:57)
[2018-11-08] MEDS ORDERED: Mirtazapine 15 MG TABLET PO SCH (21:00)
[2018-11-09] MEDS: Meropenem 500 MG in Water for inj. (sterile) 20 ML 10 ML IVP SCH (01:42)
[2018-11-09 03:37] LABS: Potassium 4.3 mEq/L (3.5-5.1)
[2018-11-09] MEDS: *HR* Heparin 5,000 UNIT/ML VIAL SQ SCH (05:44)
[2018-11-09] MEDS: Budesonide/Formoterol 160/4.5 1 PUFF INH IH SCH (07:28)
[2018-11-09 07:31] VITALS: BP 129/90
--- NOTE | 2018-11-09 08:34 | Internal Med Progress Note ---
Hospitalist Progress Note - Encounter Date of Encounter: 11/09/18 Time of Encounter: 08:30 - Subjective Interval History: No acute events overnight - Exam Vitals: Temp Pulse Resp BP Pulse Ox 98.3 F 74 14 129/90 93 11/09/18 07:26 11/09/18 07:26 11/09/18 07:26 11/09/18 07:26 11/09/18 07:26 Exam: General: pleasant, without distress, follows commands HEENT: Head atraumatic, normocephalic, EOMI, PERRL, absent ear discharge or trauma, Moist Mucous Membranes, uvula midline Neck: nontender to palpation, absent lymphadenopathy, Cardiovascualr: Regular rate and rhythm with no murmur, absent gallops or rubs, absent pedal edema, radial pulses 2 out of 4 Lungs: Clear to auscultation bilaterally, not in respiratory distress Abdomen: Soft nontender, nondistended positive bowel sounds, Skin: warm and dry, absent rash, absent open wounds and nodules MSK: absent clubbing, cyanosis, joints without swelling Neuro: Motor function grossly intact, alert and oriented to self, but not time place or situation Psych: calm - Assessment and Plan (1) Chronic kidney disease Status: Acute Assessment and Plan: ANISA on CKD stage 3 likely 2/2 to dehydration. Improved with hydration (2) Dementia Status: Chronic Assessment and Plan: Resume home medications (3) COPD (chronic obstructive pulmonary disease) Status: Chronic Assessment and Plan: No evidence of acute exacerbation. Continue with home inhalers. (4) UTI (urinary tract infection) Status: Acute Assessment and Plan: Improved with antibiotics. Urine cultures negative so far (5) Altered mental status Status: Resolved Assessment and Plan: Altered mental status possibly multifactorial in the setting of dehydration and UTI. Improved (6) Hypercalcemia Status: Acute Assessment and Plan: Calcium of 11.2 on presentation with previous elevations in calcium in the past. 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 Patient appears to be at baseline in terms of her kidney function though she does appear dry. Improved with hydration (7) Anemia Status: Acute Assessment and Plan: Normocytic anemia of 10.8 which is at or near patient's baseline. (8) DVT prophylaxis Status: Acute Assessment and Plan: Subcutaneous heparin - Time Spent with Patient Total time spent is greater than 50% in coordination of care (as documented) at patient's floor/unit and/or counseling patient: Internal Medicine: Result - Labs CBC & Chem 7: 11/08/18 04:49 11/09/18 02:49 Labs: BMP 11/09/18 02:49 Sodium 138 Potassium 4.3 Chloride 107 Carbon Dioxide 24 BUN 27 H Creatinine 1.46 H Glucose 95 Calcium 9.0 - ABG Interpretation ABG results: PT/INR, D-dimer PT 12.1 Seconds (9.4-12.1) 11/08/18 04:49 Consult Discharge Plan - Plan Instructions: Urinary Tract Infection in Women (DC) Referrals: Braden Garibay MD [Primary Care Provider] - (Follow up as scheduled. ) Yara Veronica CNP [Advanced Practice Nurse] - 11/18/18 10:30 am (Follow up as scheduled. ) (1) Chronic kidney disease Qualifiers: Chronic kidney disease stage: unspecified stage Qualified Code(s): N18.9 - Chronic kidney disease, unspecified (2) Dementia Qualifiers: Dementia type: Parkinson's disease Dementia behavioral disturbance: without behavioral disturbance Qualified Code(s): G20 - Parkinson's disease; F02.80 - Dementia in other diseases classified elsewhere without behavioral disturbance (3) COPD (chronic obstructive pulmonary disease) Qualifiers: COPD type: emphysema Emphysema type: unspecified Qualified Code(s): J43.9 - Emphysema, unspecified (4) UTI (urinary tract infection) Qualifiers: Urinary tract infection type: site unspecified Hematuria presence: without hematuria Qualified Code(s): N39.0 - Urinary tract infection, site not specified (5) Altered mental status Qualifiers: Altered mental status type: unspecified Qualified Code(s): R41.82 - Altered mental status, unspecified (7) Anemia Qualifiers: Qualified Code(s): D64.9 - Anemia, unspecified
[2018-11-09] MEDS: Magnesium Oxide 400 MG TABLET PO SCH (09:14)
[2018-11-09] MEDS: Carbidopa/Levodopa ER 50/200 TABLET PO SCH (09:14)
--- NOTE | 2018-11-09 14:09 | Electrocardiograph Report ---
[address] [place] [address] Test Date: 2018-11-07 Pat Name: Irma Griffin Department: EXAM3 Room: 3A42 Gender: F Jewel Bearing Turner: : 1935 Requested By: Shilo Washington Order Number: [id number] Reading MD: Gisselle Ledesma Measurements Intervals [place] Rate: 87 P: DE: QRS: 25 QRSD: 79 T: 54 QT: 378 QTc: 455 Interpretive Statements Atrial fibrillation Abnormal R-wave progression, early transition Electronically Signed On 11-09-2018 14:08:25 EDT by Gisselle Ledesma
== END 2018-11-09 13:22 ==
LOC: EMEROOARM 20:56 → 3ANU 20:56
PROVIDERS: ADMIT Internal Medicine; ATTEND Internal Medicine

== ENCOUNTER 2019-01-20 20:45 | Inpatient (IN) ==
--- NOTE | 2019-01-20 21:19 | Emergency Department Note ---
Disposition Clinical Impression: Acute kidney injury superimposed on chronic kidney disease UTI (urinary tract infection) Qualifiers: Urinary tract infection type: acute cystitis Hematuria presence: with hematuria Qualified Code(s): N30.01 - Acute cystitis with hematuria Altered mental status Qualifiers: Altered mental status type: somnolence Qualified Code(s): R40.0 - Somnolence Disposition: Admitted As Inpatient Condition: Fair Referrals: Braden Garibay MD [Primary Care Provider] - Forms: ED Satisfaction Letter Time of Disposition: 23:32 Altered Mental Status HPI - General Chief Complaint: ED Altered Mental Status Stated Complaint: Altered mental status Time Seen by Provider: 01/20/19 20:47 Source: family, EMS Mode of arrival: EMS Limitations: altered mental status Nursing Notes Reviewed: Yes Vital Signs Reviewed: Yes - History of Present Illness HPI Narrative: 83-year-old female presents via EMS from a [facility] where she resi charisma with a chief diagnosis of dementia and Parkinson's for evaluation of alteration in mental status. Family states patient did not eat as much dinner she normally does, and she has been less alert today, they are also concerned because her blood pressure was 151 systolic and her heart rate was 100 at the retirement. Family also states that patient did not recognize her son for a few minutes, this is unlike her. Patient with a history of COPD (2L home 02), A. fib (not anticoagulated), Parki nson's disease, dementia, and osteoporosis. She does have a frequent history of UTIs where she is on long-term prophylactic antibiotics. She is relatively bed bound, she relies on staff to move her from bed to chair. Family states no recent illness, no coughing, rhinorrhea, vomiting, reports of c onstipation or diarrhea. complaint: decreased responsiveness Onset (ago): hour(s) Timing confirmed by: family member, caregiver Pain Severity: none Consistency of Symptoms: constant Context: history of similar presentation Associated symptoms: Reports: loss of appetite. Denies: cough, diaphoresis, fever, malaise, nausea/vomiting, rash, seizure, shortness of breath, syncope, weakness, foul smelling urine, difficulty walking, diarrhea, incontinence - Related Data Home Medications Medication Instructions Recorded Confirmed Acetaminophen [Tylenol] 650 mg PO Q6HR PRN 09/14/15 12/25/18 Budesonide/Formoterol 160/4.5 2 puff IH BID 09/14/15 12/25/18 [Symbicort 160/4.5] Docusate [Colace] 100 mg PO BID PRN 09/14/15 12/25/18 Folic Acid 1 mg PO DAILY 09/14/15 12/25/18 Magnesium Oxide [Magnesium] 400 mg PO DAILY 09/14/15 12/25/18 Omeprazole [PriLOSEC] 20 mg PO QAM 09/14/15 12/25/18 Azelastine 0.1% Nasal [place] 2 spr NS DAILY 05/19/17 12/25/18 [Astelin] Carbidopa/Levodopa ER 50/200 1 tab PO BID 05/19/17 12/25/18 [Sinemet ER 50-200 Tab] Lactobacillus Acidophilus 1 cap PO DAILY 05/19/17 12/25/18 [Acidophilus] Quetiapine Fumarate [Seroquel] 12.5 mg PO HS 02/28/18 12/25/18 Mirtazapine 7.5 mg PO HS 04/25/18 12/25/18 Ferrous Sulfate [Iron] 325 mg PO DAILY 07/15/18 12/25/18 Levothyroxine Sodium [Euthyrox] 175 mcg PO QAM 11/08/18 12/25/18 Calcitriol [Rocaltrol] 1 mcg PO DAILY 12/16/18 12/25/18 Cyanocobalamin (Vitamin B-12) 1,000 mcg PO DAILY 12/16/18 12/25/18 [Vitamin B12] Metoprolol [Lopressor] 25 mg PO BID 12/16/18 12/25/18 PARoxetine HCl [Paroxetine HCl] 10 mg PO DAILY 12/16/18 12/25/18 Memantine HCl 10 mg PO BID 12/25/18 12/25/18 Previous Rx's Medication Instructions Recorded Bisacodyl [Dulcolax] 10 mg RC DAILY PRN #30 supp.rect 04/04/18 Megestrol Acetate [Megace] 800 mg PO DAILY #30 bottle 04/04/18 Albuterol Sulfate [Ventolin Hfa] 2 puff IH Q4HR PRN #0 04/27/18 cefTRIAXone [Rocephin] 1,000 mg IVPB DAILY #5 vial 12/27/18 Allergies Allergy/AdvReac Type Severity Reaction Status Date / Time Amoxicillin Allergy unknown Verified 08/26/18 13:14 atropine Allergy unknown Verified 08/26/18 13:14 codeine Allergy See Verified 08/26/18 13:14 Comments Diphenoxylate Allergy unknown Verified 08/26/18 13:14 enalapril Allergy unknown Verified 08/26/18 13:14 esomeprazole Allergy Unknown Verified 08/26/18 13:14 gluten Allergy Diarrhea Verified 08/26/18 13:14 hydromorphone [Hydromorphone] Allergy unknown Verified 08/26/18 13:14 Iodinated Contrast- Oral and Allergy unknown Verified 08/26/18 13:14 IV Dye [Iodinated Contrast Media - IV Dye] nitrofurantoin Allergy unknown Verified 08/26/18 13:14 Penicillins Allergy unkown Verified 08/26/18 13:14 piroxicam Allergy unknown Verified 08/26/18 13:14 Sulfa (Sulfonamide Allergy unknown Verified 08/26/18 13:14 Antibiotics) All systems ED: reviewed and negative except as stated. Review of Systems: As Per HPI Past Medical History - Past Medical History Attestation: Yes The following information was validated with the patient. Source: old records reviewed, obtained from family, nursing notes reviewed (from LTC) Medical history: Reports: atrial fibrillation, COPD, dementia, GERD, hypertension, osteoporosis, thyroid disease, venous stasis, other Surgical history: Reports: cataract, hysterectomy, thyroidectomy Psychiatric history: Reports: anxiety, depression TWIST MAKER history: Reports: no TWIST MAKER history - Social History Smoking Status: Never smoker Smokeless Tobacco Status: No Alcohol use: Reports: none Drug use: Reports: none Physical Exam - General Limitations: altered mental status General appearance: lethargic - Head Head exam: atraumatic, normocephalic, normal inspection - Eye Eye exam: Present: normal appearance, PERRL, EOMI - ENT ENT exam: mucous membranes moist - Neck Neck exam: Present: normal inspection, full ROM, trachea midline - Chest Chest inspection: Present: normal inspection, symmetric chest wall rise - Respiratory Respiratory exam: Present: normal lung sounds bilaterally - Cardiovascular Cardiovascular exam: Present: regular rate, irregular rhythm - Abdominal Exam Abdominal exam: Present: soft, Non-Tender, normal bowel sounds. Absent: tender ness, distention, guarding - Extremities Exam Extremities exam: Present: normal inspection, full ROM. Absent: tenderness, pedal edema - Neurological Exam Neurological exam: Present: alert, oriented X3 - Psychiatric Psychiatric exam: Present: normal affect, normal mood - Skin Skin exam: Present: warm, dry, intact, normal color Course Course Narrative: Well-developed, well-hydrated female in no acute distress. She is nonverbal, she is resting through the assessment. She is responsive to name and touch as well as painful stimuli. She does resist some assessments and turns away. Otherwise, physical examination is unremarkable. Lungs are clear, abdomen is soft and nontender. Heart rate regular rhythm with chronic A. fib, not tachycardic. EKG completed at 20:58 reveals atrial fibrillation with a repeat 6 bpm, there is no evidence of ischemia. There is no edema. Patient is afebrile, non-hypoxic upon arrival. Stage 1 sacral pressure ulcer we will obtain an AMS workup and continue to monitor. Attending, Dr. Quinn, has had one on face and patient is agreeable to plan of care. - Reevaluation(s) Reevaluation #1: Patient has been resting quietly. She has become more alert at times. She does open her eyes on command, she is moving all extremities. Labs returned with a baseline CBC, slight AKA I superimposed on CKD with a creatinine elevation of 1.94, slightly elevated troponin of 0.04 though I do feel this is related to demandischemia as there is no other indication for inpatient with many previous slightly elevated troponins. Chest x-ray and head CT are unremarkable. UA returns with leukocyte esterases, microscopic cells and bacteria. Patient has had previous admissions for metabolic encephalopathy with UTI, and discussi on with family, they are preferring we admit patient for IV antibiotics and further monitoring. This is reasonable given the patient's apparent change in alertness. Patient has previously grown Morganella, Escherichia coli, susceptible to ceftriaxone. We will initiate ceftriaxone at this time as patient was on this previously for other UTIs. We will give a bolus of fluids. We will page for spitalist at this time. Time: 23:19 Reevaluation #2: Spoke with Hospitalist, Dr. Del Rosario, Agreeable except for inpatient status. Family continues to be agreeable plan of care. We will transition the inpatient team at this time. Time: 23:32 Vital Signs Temperature 98.3 F 06/10/19 20:51 Pulse Rate 86 01/20/19 20:51 Respiratory Rate 15 01/20/19 20:51 Blood Pressure 146/100 01/20/19 20:51 O2 Sat by Pulse Oximetry 98 01/20/19 20:51 Temperature 98.3 F 01/20/19 20:51 Pulse Rate 86 01/20/19 22:36 Respiratory Rate 15 01/20/19 20:51 Blood Pressure 137/94 01/20/19 22:36 O2 Sat by Pulse Oximetry 99 01/20/19 22:36 Oxygen Delivery Oxygen Delivery Nasal Cannula Altered Mental Status - Lab Data Result diagrams: 01/20/19 22:11 01/20/19 22:09 Lab Results 01/20/19 01/20/19 01/20/19 Range/Units 22:09 22:09 22:11 WBC 6.7 (4.3-11.1) K/mcL RBC 3.65 L (3.82-4.97) M/mcL Hgb 11.5 (11.5-15.4) g/dL Hct 36.2 (35.3-44.9) % MCV 99.2 (83.0-100.0) fL MCH 31.5 (28.0-33.3) pg MCHC 31.8 (31.6-35.5) g/dL RDW 13.4 (11.5-14.5) % Plt Count 113 L (140-400) K/mcL MPV 13.0 H (9.4-12.4) fL Immature Gran % 2.2 (0-4) % Seg Neutrophils % 67.3 % Lymphocytes % 20.5 % Monocytes % 8.1 % Eosinophils % 1.3 % Basophils % 0.6 % Neutrophils # 4.5 (1.6-8.9) K/mcL Lymphocytes # 1.4 (0.6-4.6) K/mcL Monocytes # 0.5 (0.0-1.3) K/mcL Eosinophils # 0.1 (0.0-0.6) K/mcL Basophils # 0.0 (0.0-0.2) K/mcL PT (9.4-12.1) Seconds INR APTT (26.0-36.0) Seconds Sodium 139 (136-145) mEq/L Potassium 4.0 (3.5-5.1) mEq/L Chloride 106 (98-107) mEq/L Carbon Dioxide 26 (23-29) mEq/L BUN 52 H (8-23) mg/dL Creatinine 1.94 H (0.60-1.20) mg/dL Est GFR ( Amer) 30 L (> 60) Est GFR (Non-Af Amer) 25 L (> 60) BUN/Creatinine Ratio 27 H (6-26) Glucose 100 (70-105) mg/dL Calculated Osmolality 302 H (280-300) Calcium 11.5 H (8.6-10.3) mg/dL Total Bilirubin 0.7 (0.3-1.0) mg/dL Direct Bilirubin 0.2 (0.0-0.2) mg/dL Indirect Bilirubin 0.5 (0.0-1.2) mg/dL AST 23 (13-39) Units/L ALT 12 (7-52) Units/L Alkaline Phosphatase 82 (34-104) Units/L Ammonia 25 (16-53) mcmol/L Troponin I 0.04 H* (< 0.04) ng/mL Serum Total Protein 7.4 (6.4-8.9) g/dL Albumin 3.8 (3.5-5.7) g/dL Globulin 3.6 H (2.4-3.5) g/dL Albumin/Globulin Ratio 1.1 (1.1-2.2) Urine Color (Yellow) Urine Clarity (Clear) Urine pH (5.0-8.0) pH Units Ur Specific [place] (1.010-1.025) Urine Protein (Neg-Trace) mg/dL Urine Glucose (UA) (Normal) mg/dL Urine Ketones (Negative) mg/dL Urine Blood (Negative) Urine Nitrite (Negative) Urine Bilirubin (Negative) Urine Urobilinogen (Normal) mg/dL Ur Leukocyte Esterase (Negative) Urine Microscopic RBC (0-3) per hpf Urine Microscopic WBC (0-3) per hpf Ur Squamous Epith Cells (None-Few) per lpf Urine Bacteria (None-Few) per hpf Hyaline Casts (None-Few) per lpf Ur Culture Indicated? (NO) 01/20/19 01/20/19 Range/Units 22:11 22:45 WBC (4.3-11.1) K/mcL RBC (3.82-4.97) M/mcL Hgb (11.5-15.4) g/dL Hct (35.3-44.9) % MCV (83.0-100.0) fL MCH (28.0-33.3) pg MCHC (31.6-35.5) g/dL RDW (11.5-14.5) % Plt Count (140-400) K/mcL MPV (9.4-12.4) fL Immature Gran % (0-4) % Seg Neutrophils % % Lymphocytes % % Monocytes % % Eosinophils % % Basophils % % Neutrophils # (1.6-8.9) K/mcL Lymphocytes # (0.6-4.6) K/mcL Monocytes # (0.0-1.3) K/mcL Eosinophils # (0.0-0.6) K/mcL Basophils # (0.0-0.2) K/mcL PT 12.2 H (9.4-12.1) Seconds INR 1.1 APTT 29.3 (26.0-36.0) Seconds Sodium (136-145) mEq/L Potassium (3.5-5.1) mEq/L Chloride (98-107) mEq/L Carbon Dioxide (23-29) mEq/L BUN (8-23) mg/dL Creatinine (0.60-1.20) mg/dL Est GFR ( Amer) (> 60) Est GFR (Non-Af Amer) (> 60) BUN/Creatinine Ratio (6-26) Glucose (70-105) mg/dL Calculated Osmolality (280-300) Calcium (8.6-10.3) mg/dL Total Bilirubin (0.3-1.0) mg/dL Direct Bilirubin (0.0-0.2) mg/dL Indirect Bilirubin (0.0-1.2) mg/dL AST (13-39) Units/L ALT (7-52) Units/L Alkaline Phosphatase (34-104) Units/L Ammonia (16-53) mcmol/L Troponin I (< 0.04) ng/mL Serum Total Protein (6.4-8.9) g/dL Albumin (3.5-5.7) g/dL Globulin (2.4-3.5) g/dL Albumin/Globulin Ratio (1.1-2.2) Urine Color Yellow (Yellow) Urine Clarity Turbid A (Clear) Urine pH 6.0 (5.0-8.0) pH Units Ur Specific [place] 1.016 (1.010-1.025) Urine Protein 30 H (Neg-Trace) mg/dL Urine Glucose (UA) Normal (Normal) mg/dL Urine Ketones Negative (Negative) mg/dL Urine Blood Moderate H (Negative) Urine Nitrite Negative (Negative) Urine Bilirubin Negative (Negative) Urine Urobilinogen Normal (Normal) mg/dL Ur Leukocyte Esterase Large H (Negative) Urine Microscopic RBC 5-15 H (0-3) per hpf Urine Microscopic WBC TNTC H (0-3) per hpf Ur Squamous Epith Cells Many H (None-Few) per lpf Urine Bacteria Few (None-Few) per hpf Hyaline Casts None Seen (None-Few) per lpf Ur Culture Indicated? YES A (NO) TPA Checklist - LKW: 3-4.5 hrs Add. Warnings/Precautions Patient/family understanding: The patient/family members have been counseled and understood the risk, benefit, and alternatives of treatment. Attestation Statement - Attestation Attestation: Medical screening examination/treatment/procedure(s) were conducted as a shared visit with non-physician practitioner(s) and myself. I personally evaluated the patient during the encounter. Patient presents from retirement and family request for evaluation of altered mental status. Patient with elevated blood pressure and concern for fatigue. Patient overall is in bed and able to open her eyes. Unknown baseline status. Patient overall does not appear to have a good prognosis at baseline given her age, dementia, Parkinson's, and being bedridden. She has a stage I sacral decubitus ulcer that does not appear to be indurated or draining. She has no evidence of trauma. She has an abdomen is soft nontender palpation lungs are clear to auscultation bilaterally. Patient will undergo further screening wor kup. Disposition pending.
[2019-01-20 22:27] LABS: Basophils % 0.6 %; Eosinophils # 0.1 K/mcL (0.0-0.6); Eosinophils % 1.3 %; Hematocrit 36.2 % (35.3-44.9); Hemoglobin 11.5 g/dL (11.5-15.4); Immature Granulocytes % 2.2 % (0-4); Lymphocytes # 1.4 K/mcL (0.6-4.6); Lymphocytes % 20.5 %; Mean Corpuscular HGB Conc 31.8 g/dL (31.6-35.5); Mean Corpuscular Hemoglobin 31.5 pg (28.0-33.3); Mean Corpuscular Volume 99.2 fL (83.0-100.0); Monocytes # 0.5 K/mcL (0.0-1.3); Monocytes % 8.1 %; Neutrophils # 4.5 K/mcL (1.6-8.9); Platelet Count 113 K/mcL (140-400); Red Blood Count 3.65 M/mcL (3.82-4.97); Red Cell Distribution Width 13.4 % (11.5-14.5); Segmented Neutrophils % 67.3 %; White Blood Count 6.7 K/mcL (4.3-11.1)
[2019-01-20 22:36] LABS: INR 1.1; Prothrombin Time 12.2 Seconds (9.4-12.1)
[2019-01-20 22:39] LABS: Activated Partial Thrombo Time 29.3 Seconds (26.0-36.0)
[2019-01-20 22:48] LABS: Albumin 3.8 g/dL (3.5-5.7); Albumin/Globulin Ratio 1.1 (1.1-2.2); Bilirubin,Direct 0.2 mg/dL (0.0-0.2); Bilirubin,Indirect 0.5 mg/dL (0.0-1.2); Bilirubin,Total 0.7 mg/dL (0.3-1.0); Calcium 11.5 mg/dL (8.6-10.3); Globulin 3.6 g/dL (2.4-3.5); Total Protein 7.4 g/dL (6.4-8.9)
[2019-01-20] MEDS ORDERED: 0.9 % Sodium Chloride 500 ML IVC ONE (22:49)
[2019-01-20 22:54] LABS: Bilirubin,Urine Negative (Negative); Blood,Urine Moderate (Negative); Clarity,Urine Turbid (Clear); Color,Urine Yellow (Yellow); Glucose,Urine (UA) Normal (Normal); Ketones,Urine Negative (Negative); Leukocyte Esterase,Urine Large (Negative); Nitrite,Urine Negative (Negative); Protein,Urine 30 mg/dL (Neg-Trace); Specific Gravity,Urine 1.016 (1.010-1.025); Urobilinogen,Urine Normal (Normal)
[2019-01-20 22:57] LABS: Bacteria,Urine Few per hpf (None-Few); Hyaline Casts,Urine None Seen per lpf (None-Few); Squamous Epithelial Cell,Urine Many per lpf (None-Few); WBC,Urine TNTC per hpf (0-3)
[2019-01-20 23:01] LABS: Troponin I 0.04 ng/mL (< 0.04)
[2019-01-20] MEDS ORDERED: cefTRIAXone 1,000 MG in 0.9 % Sodium Chloride Mini Bag 100 ML IVPB ONE (23:04)
[2019-01-21] MEDS ORDERED: Acetaminophen 325 MG TABLET PO PRN (01:14)
[2019-01-21] MEDS ORDERED: 0.9 % Sodium Chloride 1,000 ML IVC SCH ×2 (01:15→18:45)
[2019-01-21] MEDS ORDERED: Bisacodyl 10 MG RECTAL SUPPOSITORY RC PRN (01:15)
--- NOTE | 2019-01-21 01:33 | Internal Med History&Physical ---
Date of Encounter: 01/21/19 Time of Encounter: 01:33 Internal Medicine - H&P: HPI Chief complaint: ams Admitted From: Long-term Nursing Facility Plans for Post Hospital Care: Transfer [facility] Facility History of present illness: Irma Griffin is an 83 year old woman with multiple comorbidities i ncluding bed-bound severe dementia who resides at [facility] and has been admitted here a plethora of times for UTI/AMS. She is brought in now by family who state that they noticed she did not eat much at dinner and had been less alert/active today so they were concerned for another infection. In the ER she was clinically and hemodynamically stable. UA as expected was concerning for a UTI. Her labs were grossly unremarkable other than a mild increase in her serum creatinine and troponin. She was admitted for observation. Vitals: Reviewed General: Elderly woman lying in bed in NAD Skin: Warm, pale, dry. HEENT: Slightly dry mucous membranes. (+) conjunctivae pallor. Neck: No lymphadenopathy. No JVD. No carotid bruits. No palpable thyroid. Chest: Normal thoracic expansion. Normal breath sounds. Clear to auscultation. Heart: Normal S1 & S2; rhythmic. No rubs or murmurs. Abdomen: Non-distended, soft and non-tender to palpation. No peritoneal reaction. Extremities: No clubbing, cyanosis or edema. No calf tenderness. Normal distal pulses. Neurological: Awake, alert and oriented to person. No focal deficits. Psych: Affect appropriate. Assessment/Plan 1. Acute encephalopathy: Possibly secondary to dehydration and concomitant UT I. She has since perked up with treatment initiated. Will continue as detailed below. 2. UTI: Uncomplicated. Can remain on ceftriaxone for now pending culture data for a short course. 3. ANISA: Seemingly pre-renal from poor oral intake as reported by family and her clinically dehydrated state. Will keep on maintenance IVF. 4. Dementia: Will continue memantine as well as dopamine agonist therapy for her Parkinsons. 5. Afib: No on AC due to bleed risk. Rate controlled. 6. Troponin elevation: Suspect secondary to the above issues and not from ACS. Will monitor. Past Med Surg Social Fam HX - Past Medical History Medical history: atrial fibrillation, COPD, dementia, GERD, hypertension, osteoporosis, thyroid disease, venous stasis, other Additional medical history: hiatal hernia, parkinsons Psychiatric history: anxiety, depression - Past Surgical History Surgical History: cataract, hysterectomy, thyroidectomy Additional surgical history: codi leg surgery for varicose veins - Social History Smoking Status: Never smoker Smokeless Tobacco Status: No Alcohol use: none Drug use: none - Family History Father Living Status: Hx Family Cardiac Disorders: Yes Mother Living Status: Hx Family Cardiac Disorders: Yes Internal Medicine - H&P: Meds Acetaminophen [Tylenol] 650 mg PO Q6HR PRN 09/14/15 [History] Budesonide/Formoterol 160/4.5 [Symbicort 160/4.5] 2 puff IH BID 09/14/15 [History] Docusate [Colace] 100 mg PO BID PRN 09/14/15 [History] Folic Acid 1 mg PO DAILY 09/14/15 [History] Magnesium Oxide [Magnesium] 400 mg PO DAILY 09/14/15 [History] Omeprazole [PriLOSEC] 20 mg PO QAM 09/14/15 [History] Azelastine 0.1% Nasal [place] [Astelin] 2 spr NS DAILY 05/19/17 [History] Carbidopa/Levodopa ER 50/200 [Sinemet ER 50-200 Tab] 1 tab PO BID 05/19/17 [History] Lactobacillus Acidophilus [Acidophilus] 1 cap PO DAILY 05/19/17 [History] Quetiapine Fumarate [Seroquel] 12.5 mg PO HS 02/28/18 [History] Bisacodyl [Dulcolax] 10 mg RC DAILY PRN #30 supp.rect 04/04/18 [Rx] Megestrol Acetate [Megace] 800 mg PO DAILY #30 bottle 04/04/18 [Rx] Mirtazapine 7.5 mg PO HS 04/25/18 [History] Albuterol Sulfate [Ventolin Hfa] 2 puff IH Q4HR PRN #0 04/27/18 [Rx] Ferrous Sulfate [Iron] 325 mg PO DAILY 07/15/18 [History] Levothyroxine Sodium [Euthyrox] 175 mcg PO QAM 11/08/18 [History] Calcitriol [Rocaltrol] 1 mcg PO DAILY 12/16/18 [History] Cyanocobalamin (Vitamin B-12) [Vitamin B12] 1,000 mcg PO DAILY 12/16/18 [History] Metoprolol [Lopressor] 25 mg PO BID 12/16/18 [History] PARoxetine HCl [Paroxetine HCl] 10 mg PO DAILY 12/16/18 [History] Memantine HCl 10 mg PO BID 12/25/18 [History] cefTRIAXone [Rocephin] 1,000 mg IVPB DAILY #5 vial 12/27/18 [Rx] Allergy/AdvReac Type Severity Reaction Status Date / Time Amoxicillin Allergy unknown Verified 08/26/18 13:14 atropine Allergy unknown Verified 08/26/18 13:14 codeine Allergy See Verified 08/26/18 13:14 Comments Diphenoxylate Allergy unknown Verified 08/26/18 13:14 enalapril Allergy unknown Verified 08/26/18 13:14 esomeprazole Allergy Unknown Verified 08/26/18 13:14 gluten Allergy Diarrhea Verified 08/26/18 13:14 hydromorphone [Hydromorphone] Allergy unknown Verified 08/26/18 13:14 Iodinated Contrast- Oral and Allergy unknown Verified 08/26/18 13:14 IV Dye [Iodinated Contrast Media - IV Dye] nitrofurantoin Allergy unknown Verified 08/26/18 13:14 Penicillins Allergy unkown Verified 08/26/18 13:14 piroxicam Allergy unknown Verified 08/26/18 13:14 Sulfa (Sulfonamide Allergy unknown Verified 08/26/18 13:14 Antibiotics) All Systems PM: A 10-system review of systems was performed and is negative for pertinent fin dings except as documented above in the HPI. - Constitutional Vitals: Temp Pulse Resp BP Pulse Ox 98.3 F 65 16 138/90 100 01/20/19 20:51 01/21/19 00:44 01/21/19 00:44 01/21/19 00:44 01/21/19 00:44 Exam: . Internal Med - H&P Results - Labs CBC & Chem 7: 01/20/19 22:11 01/20/19 22:09 Labs: Short CBC 01/20/19 Range/Units 22:11 WBC 6.7 (4.3-11.1) K/mcL Hgb 11.5 (11.5-15.4) g/dL Hct 36.2 (35.3-44.9) % Plt Count 113 L (140-400) K/mcL Neutrophils # 4.5 (1.6-8.9) K/mcL BMP 01/20/19 22:09 Sodium 139 Potassium 4.0 Chloride 106 Carbon Dioxide 26 BUN 52 H Creatinine 1.94 H Glucose 100 Calcium 11.5 H Cardiac Enzymes 01/20/19 Range/Units 22:09 Troponin I 0.04 H* (< 0.04) ng/mL Liver Function 01/20/19 Range/Units 22:09 Total Bilirubin 0.7 (0.3-1.0) mg/dL Direct Bilirubin 0.2 (0.0-0.2) mg/dL AST 23 (13-39) Units/L ALT 12 (7-52) Units/L Alkaline Phosphatase 82 (34-104) Units/L Albumin 3.8 (3.5-5.7) g/dL Urine 01/20/19 Range/Units 22:45 Urine Color Yellow (Yellow) Urine Clarity Turbid A (Clear) Urine pH 6.0 (5.0-8.0) pH Units Ur Specific [place] 1.016 (1.010-1.025) Urine Protein 30 H (Neg-Trace) mg/dL Urine Glucose (UA) Normal (Normal) mg/dL - Impressions ITS Impressions Chest X-Ray 01/20/19 21:01 IMPRESSION: 1. Redemonstration of blunting of the left costophrenic angle which may reflect left effusion atelectasis versus scarring. Chronic underlying lung changes present. D/ / Lobo Adhikari MD / Lobo Adhikari MD Interpreting Provider: Lobo Adhikari MD Head CT 01/20/19 21:02 IMPRESSION: No acute intracranial abnormality. D/ / Ruddy Hernandez MD / Ruddy Hernandez MD Interpreting Provider: Ruddy Hernandez MD - Time Spent With Patient Total time spent is greater than 50% in coordination of care (as documented) at patient's floor/unit and/or counseling patient: Greater than 35 minutes
[2019-01-21] MEDS: *HR* Heparin 5,000 UNIT/ML VIAL SQ SCH ×2 (05:45→19:05)
[2019-01-21 09:52] LABS: Calcium 10.2 mg/dL (8.6-10.3); Potassium 3.7 mEq/L (3.5-5.1)
[2019-01-21 10:03] LABS: Troponin I 0.05 ng/mL (< 0.04)
[2019-01-21] MEDS ORDERED: MOM Conc 10 ML UD.LIQ PO PRN (10:41)
--- NOTE | 2019-01-21 10:44 | Event Note ---
Date of Encounter: 01/21/19 Time of Encounter: 08:00 Patient was seen and examined at bedside. Alert and oriented to self however not time or place. Follows simple commands, drowsy however easily arousable. Currently denies fever, chills, nausea, vomiting or diarrhea. His not hungry. Vital signs reviewed Drowsy but easily arousable Alert and oriented 1, follows simple commands Decreased breath sounds bilaterally, could not appreciate any crackles at the mid axillary line, no wheezing in the anterior chest Irregular S1 and S2 Assessment and plan Acute metabolic encephalopathy most likely secondary to urinary tract infection ruled out intracranial abnormality-continue with antibiotics, seizure, aspiration and fall precautions, neuro checks every 4 hours Urinary tract infection, continue with ceftriaxone, renal ultrasound to rule out hydronephrosis- follow ucx Acute renal failure most likely secondary to poor oral intake, continue with IV hydration [place] continue to avoid nephrotoxic medications, follow urine cultures, retroperitoneal ultrasound pending Dementia, continue home medications-as per documentation she is oriented to person at baseline. Elevated troponin most likely secondary to dehydration and acute renal failure, has no chest pain currently, continue to follow every 6 hours. consider starting her aspirin 81 mg if platelet counts remain stable and if there is no CI - continue metoprolol A. fib not on anticoagulation- secondary to falls Chronic thrombocytopenia. Platelet count around > 100,000 prognosis: guarded DVT prophylaxis: heparin sc
[2019-01-21] MEDS: Folic Acid 1 MG TABLET PO SCH (11:27)
[2019-01-21] MEDS: Carbidopa/Levodopa ER 50/200 TABLET PO SCH ×2 (11:28→21:47)
[2019-01-21] MEDS: Magnesium Oxide 400 MG TABLET PO SCH (11:28)
[2019-01-21] MEDS: cefTRIAXone 1,000 MG in Water for inj. (sterile) 20 ML 10 ML IVPB SCH (11:35)
--- NOTE | 2019-01-21 16:05 | Electrocardiograph Report ---
[address] [address] Test Date: 2019-01-20 Pat Name: Irma Griffin Department: EXAMF2 Room: 2N0 Gender: F [employer]: : 1935 Requested By: Dori De Oliveira Order Number: [id number] Reading MD: Iban iDmas Measurements Intervals [place] Rate: 86 P: [place]: QRS: 17 QRSD: 87 T: 28 QT: 363 QTc: 419 Interpretive Statements Atrial fibrillation Electronically Signed On 01-21-2019 16:03:58 EDT by Iban Dimas
[2019-01-21] MEDS: Megestrol Acetate 400 MG/10 ML UDC PO SCH (19:36)
[2019-01-21] MEDS: Budesonide/Formoterol 160/4.5 1 PUFF INH IH SCH (19:47)
[2019-01-21] MEDS: Mirtazapine 15 MG TABLET PO SCH (21:49)
[2019-01-22] MEDS: *HR* Heparin 5,000 UNIT/ML VIAL SQ SCH ×2 (06:38→16:49)
[2019-01-22] MEDS: Folic Acid 1 MG TABLET PO SCH (07:48)
[2019-01-22] MEDS: Megestrol Acetate 400 MG/10 ML UDC PO SCH (07:48)
[2019-01-22] MEDS: Magnesium Oxide 400 MG TABLET PO SCH (07:49)
[2019-01-22] MEDS: Carbidopa/Levodopa ER 50/200 TABLET PO SCH ×2 (07:49→21:59)
[2019-01-22] MEDS: Cyanocobalamin (B-12) 1,000 MCG TABLET PO SCH (07:50)
[2019-01-22] MEDS: Lactobacillus 1 EACH CAP.SPRINK PO SCH (07:50)
[2019-01-22] MEDS: cefTRIAXone 1,000 MG in Water for inj. (sterile) 20 ML 10 ML IVPB SCH (07:50)
[2019-01-22] MEDS: Budesonide/Formoterol 160/4.5 1 PUFF INH IH SCH ×2 (07:55→19:58)
[2019-01-22 08:00] LABS: Hematocrit 34.8 % (35.3-44.9); Hemoglobin 10.8 g/dL (11.5-15.4); Mean Corpuscular Hemoglobin 31.1 pg (28.0-33.3); Mean Corpuscular Volume 100.3 fL (83.0-100.0); Mean Platelet Volume 13.2 fL (9.4-12.4); Platelet Count 105 K/mcL (140-400); Red Blood Count 3.47 M/mcL (3.82-4.97); Red Cell Distribution Width 13.5 % (11.5-14.5); White Blood Count 5.6 K/mcL (4.3-11.1)
[2019-01-22 08:18] LABS: Calcium 10.1 mg/dL (8.6-10.3); Potassium 3.6 mEq/L (3.5-5.1)
--- NOTE | 2019-01-22 08:32 | Internal Med Progress Note ---
Hospitalist Progress Note - Encounter Date of Encounter: 01/22/19 Time of Encounter: 08:24 - Subjective Interval History: pateint examined this morning at bedside. No acute overnight events. Afebrile. Alert but not oriented. Denies any pain however not able to offer any other complaints. - Exam Vitals: Temp Pulse Resp BP Pulse Ox 97.7 F 77 18 141/93 97 01/22/19 07:37 01/22/19 07:37 01/22/19 07:56 01/22/19 07:37 01/22/19 07:56 Exam: General: In no acute distress. Respiratory exam: CTAB. no accessory muscle use, rales, rhonchi, wheezes Cardiovascular exam: RRR, +S1, +S2. no murmur, gallop, rubs. GI/Abdominal exam: Non-tender, Non-distended, normal bowel sounds, soft, no peritoneal signs. Extremities exam: no pedal edema, pulses palpable in b/l lower extremities. no calf tenderness Neurological exam: CN II-XII intact grossly intact, AO X0, no focal deficits within limited exam Skin exam: No skin rash - Summary of Assessment and Plan Summary of Assessment and Plan: Assessment Acute metabolic encephalopathy most likely secondary to UTI ANISA on CKD 3 severe Dementia Elevated troponin DVT prophylaxis. Afib Chronic thrombocytopenia COPD HTN parkinsons hypothyroidism. Plan - c/w ceftriaxone for UTI. F/u blood and urine cultures. - no acute changes on renal ultrasound. Had chronic medical disease c/w gentle IVF. Switch to LR. Strict I/O. - c/w home dementia medications - Elevated troponin most likely secondary to dehydration and ANISA, has no chest pain currently. restart aspirin 81 mg. c/w metoprolol - A. fib rate controlled with metoprolol. not on anticoagulation- secondary to falls - DVT prophylaxis with heparin sc - Time Spent with Patient Total time spent is greater than 50% in coordination of care (as documented) at patient's floor/unit and/or counseling patient: Internal Medicine: Result - Labs CBC & Chem 7: 01/22/19 07:10 01/22/19 07:10 Labs: Short CBC 01/22/19 Range/Units 07:10 WBC 5.6 (4.3-11.1) K/mcL Hgb 10.8 L (11.5-15.4) g/dL Hct 34.8 L (35.3-44.9) % Plt Count 105 L (140-400) K/mcL BMP 01/21/19 01/22/19 09:09 07:10 Sodium 142 145 Potassium 3.7 3.6 Chloride 111 H 112 H Carbon Dioxide 24 22 L BUN 48 H 45 H Creatinine 1.78 H 1.71 H Glucose 85 73 Calcium 10.2 10.1 Cardiac Enzymes 01/21/19 Range/Units 09:09 Troponin I 0.05 H* (< 0.04) ng/mL - ABG Interpretation ABG results: PT/INR, D-dimer PT 12.2 Seconds (9.4-12.1) H 01/20/19 22:11 - Impressions Impressions Retroperitoneum Ultrasound 01/21/19 13:30 IMPRESSION: No acute renal abnormality. Bilateral areas of cortical thinning have not significantly changed and may be related to medical renal disease or scarring from prior infection. D/ / 01/21/2019 14:07:35 Mellissa Pollard MD / [facility] Interpreting Provider: Mellissa Pollard MD Consult Discharge Plan - Plan Referrals: Braden Garibay MD [Primary Care Provider] -
[2019-01-22] MEDS ORDERED: MEMANTINE HCL 28 MG PO SCH (09:00)
[2019-01-22] MEDS ORDERED: CALCITRIOL 1 MCG PO SCH (09:00)
[2019-01-22] MEDS ORDERED: Aspirin Enteric Coated 81 MG Tablet PO SCH (09:00)
[2019-01-22] MEDS: Ringers Solution, Lactated 1,000 ML IVC SCH (10:24)
[2019-01-22] MEDS: Azelastine 0.1% Nasal Spray 30 ML BOTTLE NS SCH (16:10)
[2019-01-22] MEDS: Mirtazapine 15 MG TABLET PO SCH (21:59)
[2019-01-23] MEDS: *HR* Heparin 5,000 UNIT/ML VIAL SQ SCH ×2 (05:05→17:54)
[2019-01-23] MEDS: Ringers Solution, Lactated 1,000 ML IVC SCH (05:06)
[2019-01-23 06:36] LABS: Calcium 10.1 mg/dL (8.6-10.3)
--- NOTE | 2019-01-23 08:31 | Internal Med Progress Note ---
Hospitalist Progress Note - Encounter Date of Encounter: 01/23/19 Time of Encounter: 08:31 - Subjective Interval History: Seen and examined this morning. No acute overnight events noted. Afebrile and hemodynamically stable. Patient sleeping and difficult to arouse. Not able to offer any complaints. - Exam Vitals: Temp Pulse Resp BP Pulse Ox 98.1 F 87 12 161/114 98 01/23/19 07:12 01/23/19 07:12 01/23/19 07:12 01/23/19 07:12 01/23/19 07:12 Exam: General: In no acute distress. Respiratory exam: CTAB. no accessory muscle use, rales, rhonchi, wheezes Cardiovascular exam: RRR, +S1, +S2. systolic murmur heard. GI/Abdominal exam: Non-tender, Non-distended, normal bowel sounds, soft, no peritoneal signs. Extremities exam: no pedal edema, pulses palpable in b/l lower extremities. no calf tenderness Neurological exam: AO X0, sleepy and difficult to arouse, no focal deficits within limited exam - Summary of Assessment and Plan Summary of Assessment and Plan: Assessment Acute metabolic encephalopathy most likely secondary to UTI ANISA on CKD 3 severe Dementia Elevated troponin DVT prophylaxis. Afib Chronic thrombocytopenia COPD HTN parkinsons hypothyroidism. Plan - Urine growing GNR. c/w ceftriaxone for UTI for now. F/u final blood and urine cultures. - no acute changes on renal ultrasound. Had chronic medical disease c/w gentle IVF. Strict I/O. Has good urine output. Renal function improving with ivf - c/w home dementia medications. AMS likely related to acute illness and dehydration on baseline dementia and parkinsons. Still not completely at baseline. Head CT unremarkable. - Elevated troponin most likely secondary to dehydration and ANISA, has no chest pain currently. Family does not want patient to be on aspirin 81 mg as was advised by pcp. Will dc for now and to outpatient. c/w metoprolol - A. fib rate controlled with metoprolol. not on anticoagulation- secondary to falls. Dc aspirin as mentioned above. - DVT prophylaxis with heparin sc - Time Spent with Patient Total time spent is greater than 50% in coordination of care (as documented) at patient's floor/unit and/or counseling patient: Internal Medicine: Result - Labs CBC & Chem 7: 01/22/19 07:10 01/23/19 05:44 Labs: [facility] 01/23/19 05:44 Sodium 140 Potassium 4.0 Chloride 109 H Carbon Dioxide 22 L BUN 33 H Creatinine 1.42 H Glucose 88 Calcium 10.1 - ABG Interpretation ABG results: PT/INR, D-dimer PT 12.2 Seconds (9.4-12.1) H 01/20/19 22:11 Consult Discharge Plan - Plan Referrals: Braden Garibay MD [Primary Care Provider] -
[2019-01-23] MEDS: Megestrol Acetate 400 MG/10 ML UDC PO SCH (09:12)
[2019-01-23] MEDS: Carbidopa/Levodopa ER 50/200 TABLET PO SCH ×2 (09:12→21:16)
[2019-01-23] MEDS: Folic Acid 1 MG TABLET PO SCH (09:13)
[2019-01-23] MEDS: Magnesium Oxide 400 MG TABLET PO SCH (09:13)
[2019-01-23] MEDS: Lactobacillus 1 EACH CAP.SPRINK PO SCH (09:13)
[2019-01-23] MEDS: Azelastine 0.1% Nasal Spray 30 ML BOTTLE NS SCH (09:13)
[2019-01-23] MEDS: Cyanocobalamin (B-12) 1,000 MCG TABLET PO SCH (09:13)
[2019-01-23] MEDS: cefTRIAXone 1,000 MG in Water for inj. (sterile) 20 ML 10 ML IVPB SCH (09:13)
[2019-01-23] MEDS: Budesonide/Formoterol 160/4.5 1 PUFF INH IH SCH ×2 (11:24→20:26)
[2019-01-23] MEDS ORDERED: 0.9 % Sodium Chloride 1,000 ML IVC SCH (16:30)
[2019-01-23] MEDS: Mirtazapine 15 MG TABLET PO SCH (21:15)
[2019-01-24] MEDS: *HR* Heparin 5,000 UNIT/ML VIAL SQ SCH ×2 (06:07→17:57)
[2019-01-24] MEDS: Budesonide/Formoterol 160/4.5 1 PUFF INH IH SCH ×2 (07:39→22:01)
[2019-01-24 08:08] LABS: Calcium 9.7 mg/dL (8.6-10.3); Potassium 4.1 mEq/L (3.5-5.1)
--- NOTE | 2019-01-24 09:18 | Internal Med Progress Note ---
Hospitalist Progress Note - Encounter Date of Encounter: 01/24/19 Time of Encounter: 09:18 - Subjective Interval History: Patient seen and examined this morning at bedside. No acute overnight events. Patient sleeping entire time and not readily arousable. Not able to offer any complaints. Remains afebrile and hemodynamically stable. - Exam Vitals: Temp Pulse Resp BP Pulse Ox 98.2 F 66 14 148/98 99 01/24/19 06:33 01/24/19 06:33 01/24/19 07:39 01/24/19 06:33 01/24/19 07:39 Exam: General: In no acute distress. Respiratory exam: CTAB. no accessory muscle use, rales, rhonchi, wheezes Cardiovascular exam: RRR, +S1, +S2. systolic murmur heard. GI/Abdominal exam: Non-tender, Non-distended, normal bowel sounds, soft, no peritoneal signs. Extremities exam: no pedal edema, pulses palpable in b/l lower extremities. no calf tenderness Neurological exam: AO X0, sleepy and difficult to arouse. Localizing pain - Summary of Assessment and Plan Summary of Assessment and Plan: Assessment Acute metabolic encephalopathy most likely secondary to UTI ANISA on CKD 3 severe Dementia Elevated troponin DVT prophylaxis. Afib Chronic thrombocytopenia COPD HTN parkinsons hypothyroidism. Plan - Urine growing proteus sensitive only to zosyn, ertapenem and imipenam. Patient has allergy to penicillins. Started on ertapenam. blood cultures NGTD. Urine also show enterococcus but sensitivity not reported. Microbiology looking into it. Will change abx to meropenam. - no acute changes on renal ultrasound. Had chronic medical disease c/w gentle IVF. Strict I/O. Has good urine output. Renal function improving with ivf - c/w home dementia medications. AMS likely related to acute illness and dehydration on baseline dementia and parkinsons. [facility] un[facility]. Will get MRI. Will hold remeron, azelastine, seroquel and memantine for today. - Elevated troponin most likely secondary to dehydration and ANISA, has no chest pain currently. Family does not want patient to be on aspirin 81 mg as was advised by pcp. c/w metoprolol - A. fib rate controlled with metoprolol. not on anticoagulation- secondary to falls. Dc aspirin as mentioned above. - Had discussed with family about possible palliative care evaluation but family not receptive of the idea and "wants to keep her as long as possible". They did however did not want aggressive measure and made her DNRCCADNI. - DVT prophylaxis with heparin sc - Time Spent with Patient Total time spent is greater than 50% in coordination of care (as documented) at patient's floor/unit and/or counseling patient: Internal Medicine: Result - Labs CBC & Chem 7: 01/22/19 07:10 01/24/19 07:23 Labs: BMP 01/24/19 07:23 Sodium 140 Potassium 4.1 Chloride 112 H Carbon Dioxide 21 L BUN 25 H Creatinine 1.37 H Glucose 89 Calcium 9.7 - ABG Interpretation ABG results: PT/INR, D-dimer PT 12.2 Seconds (9.4-12.1) H 01/20/19 22:11 - Impressions Impressions Retroperitoneum Ultrasound 01/21/19 13:30 IMPRESSION: No acute renal abnormality. Bilateral areas of cortical thinning have not significantly changed and may be related to medical renal disease or scarring from prior infection. D/ / 01/21/2019 14:07:35 Mellissa Pollard MD / [facility] Interpreting Provider: Mellissa Pollard MD Consult Discharge Plan - Plan Referrals: Braden Garibay MD [Primary Care Provider] - Prescriptions: Ertapenem [INVanz] 1,000 mg IM DAILY 10 Days #10 vial Meropenem 500 mg IV Q12H 10 Days #20 vial
[2019-01-24] MEDS: Carbidopa/Levodopa ER 50/200 TABLET PO SCH ×2 (10:29→20:51)
[2019-01-24] MEDS: Azelastine 0.1% Nasal Spray 30 ML BOTTLE NS SCH (10:30)
[2019-01-24] MEDS: Lactobacillus 1 EACH CAP.SPRINK PO SCH (10:30)
[2019-01-24] MEDS: Magnesium Oxide 400 MG TABLET PO SCH (10:30)
[2019-01-24] MEDS: Folic Acid 1 MG TABLET PO SCH (10:30)
[2019-01-24] MEDS: Megestrol Acetate 400 MG/10 ML UDC PO SCH (10:30)
[2019-01-24] MEDS: Cyanocobalamin (B-12) 1,000 MCG TABLET PO SCH (10:31)
[2019-01-24] MEDS: 0.9 % Sodium Chloride 1,000 ML IVC SCH (11:38)
[2019-01-24] MEDS: Meropenem 500 MG in Water for inj. (sterile) 20 ML 10 ML IVP SCH (17:58)
[2019-01-24] MEDS ORDERED: Meropenem 1,000 MG in 0.9 % Sodium Chloride Mini Bag 100 ML IVPB SCH (18:00)
[2019-01-24] MEDS: Mirtazapine 15 MG TABLET PO SCH (20:50)
[2019-01-25] MEDS: Meropenem 500 MG in Water for inj. (sterile) 20 ML 10 ML IVP SCH ×2 (05:47→18:51)
[2019-01-25] MEDS: *HR* Heparin 5,000 UNIT/ML VIAL SQ SCH ×2 (05:49→18:51)
[2019-01-25] MEDS: 0.9 % Sodium Chloride 1,000 ML IVC SCH ×2 (05:50→16:37)
[2019-01-25 06:43] LABS: Calcium 9.4 mg/dL (8.6-10.3)
[2019-01-25] MEDS: Lactobacillus 1 EACH CAP.SPRINK PO SCH (08:27)
[2019-01-25] MEDS: Magnesium Oxide 400 MG TABLET PO SCH (08:28)
[2019-01-25] MEDS: Folic Acid 1 MG TABLET PO SCH (08:28)
[2019-01-25] MEDS: Cyanocobalamin (B-12) 1,000 MCG TABLET PO SCH (08:29)
[2019-01-25] MEDS: Megestrol Acetate 400 MG/10 ML UDC PO SCH (08:30)
[2019-01-25] MEDS: Azelastine 0.1% Nasal Spray 30 ML BOTTLE NS SCH (08:31)
[2019-01-25] MEDS: Carbidopa/Levodopa ER 50/200 TABLET PO SCH (08:38)
--- NOTE | 2019-01-25 09:54 | Internal Med Progress Note ---
Hospitalist Progress Note - Encounter Date of Encounter: 01/25/19 Time of Encounter: 09:53 - Subjective Interval History: Patient seen and examined this morning at bedside. No acute overnight events. Patient much more alert and able to eat. Reports some lower abdominal discomfort to family. Afebrile and hemodynamically stable - Exam Vitals: Temp Pulse Resp BP Pulse Ox 97.9 F 73 14 146/97 91 01/25/19 07:45 01/25/19 07:45 01/25/19 07:45 01/25/19 07:45 01/25/19 07:45 Exam: General: In no acute distress. Respiratory exam: CTAB. no accessory muscle use, rales, rhonchi, wheezes Cardiovascular exam: RRR, +S1, +S2. systolic murmur heard. GI/Abdominal exam: Non-tender, Non-distended, soft, no peritoneal signs. silva in palce Extremities exam: no pedal edema, pulses palpable in b/l lower extremities. no calf tenderness Neurological exam: Alert. oriented to self. No focal signs - Summary of Assessment and Plan Summary of Assessment and Plan: Assessment Acute metabolic encephalopathy most likely secondary to UTI ANISA on CKD 3 severe Dementia Elevated troponin DVT prophylaxis hypokalemia Afib Chronic thrombocytopenia COPD HTN parkinsons hypothyroidism. Plan - Urine growing proteus sensitive only to zosyn, ertapenem and imipenam. Patient has allergy to penicillins. Started on meropenam. blood cultures NGTD. Urine also show enterococcus sensitive only to linezolid. More alert after starting meropenam. c/w antibiotics for now. Will have to stop patients carbidopa, rameron and mirtazapine while on linezolid. - no acute changes on renal ultrasound. Had chronic medical disease. Strict I/O. Has good urine output. Renal function improving with ivf. No signs of overload. Will give 1 day of albumin - c/w home dementia medications. AMS likely related to acute illness and dehydration on baseline dementia and parkinsons. Mentation improved. Head CT unr emarkable. MRI unremarkable. had held remeron, azelastine, seroquel and memantine. Will need to hold carbidopa, mirtazapine while on linezolid - Elevated troponin most likely secondary to dehydration and ANISA, has no chest pain currently. Family does not want patient to be on aspirin 81 mg as was adv ised by pcp. c/w metoprolol. also poor candidate for invasive intervention. - A. fib rate controlled with metoprolol. not on anticoagulation- secondary to falls. Dc aspirin as mentioned above. - Had discussed with family about possible palliative care evaluation but family not receptive of the idea and "wants to keep her as long as possible". They did however did not want aggressive measure and made her DNRCCADNI. - DVT prophylaxis with heparin sc Internal Medicine: Result - Labs CBC & Chem 7: 01/22/19 07:10 01/25/19 06:00 Labs: BMP 01/25/19 06:00 Sodium 142 Potassium 4.0 Chloride 109 H Carbon Dioxide 23 BUN 22 Creatinine 1.27 H Glucose 95 Calcium 9.4 - ABG Interpretation ABG results: PT/INR, D-dimer PT 12.2 Seconds (9.4-12.1) H 01/20/19 22:11 - Impressions Impressions Brain MRI 01/24/19 16:33 IMPRESSION: 1. No acute intracranial abnormality. No acute infarct. 2. Moderate global parenchymal volume loss with chronic microvascular ischemic changes. D/ / Mark Kearns MD / Mark Kearns MD Interpreting Provider: Mark Kearns MD Consult Discharge Plan - Plan Referrals: Braden Garibay MD [Primary Care Provider] - Prescriptions: Ertapenem [INVanz] 1,000 mg IM DAILY 10 Days #10 vial Meropenem 500 mg IV Q12H 10 Days #20 vial
[2019-01-25] MEDS: Budesonide/Formoterol 160/4.5 1 PUFF INH IH SCH ×2 (10:50→22:02)
[2019-01-25] MEDS: Albumin 25% 25gram/100mL 25 GM/100 ML IV.SOLN IVPB SCH (16:33)
[2019-01-26] MEDS: Albumin 25% 25gram/100mL 25 GM/100 ML IV.SOLN IVPB SCH ×3 (00:04→15:48)
[2019-01-26] MEDS: 0.9 % Sodium Chloride 1,000 ML IVC SCH ×2 (03:45→15:48)
[2019-01-26 04:20] LABS: Calcium 9.2 mg/dL (8.6-10.3); Potassium 4.8 mEq/L (3.5-5.1)
[2019-01-26] MEDS: Meropenem 500 MG in Water for inj. (sterile) 20 ML 10 ML IVP SCH ×2 (05:57→18:01)
[2019-01-26] MEDS: *HR* Heparin 5,000 UNIT/ML VIAL SQ SCH ×2 (05:58→18:02)
[2019-01-26] MEDS: Megestrol Acetate 400 MG/10 ML UDC PO SCH (08:12)
[2019-01-26] MEDS: Cyanocobalamin (B-12) 1,000 MCG TABLET PO SCH (08:13)
[2019-01-26] MEDS: Magnesium Oxide 400 MG TABLET PO SCH (08:14)
[2019-01-26] MEDS: Folic Acid 1 MG TABLET PO SCH (08:14)
[2019-01-26] MEDS: Lactobacillus 1 EACH CAP.SPRINK PO SCH (08:14)
[2019-01-26] MEDS: Azelastine 0.1% Nasal Spray 30 ML BOTTLE NS SCH (10:21)
--- NOTE | 2019-01-26 10:22 | Internal Med Progress Note ---
Hospitalist Progress Note - Encounter Date of Encounter: 01/26/19 Time of Encounter: 08:13 - Subjective Interval History: Patient seen and examined this morning at bedside. No acute overnight events. Awake and alert however not able to respond to questions. Not able to offer any complaints. - Exam Vitals: Temp Pulse Resp BP Pulse Ox 97.7 F 80 18 164/112 100 01/26/19 07:34 01/26/19 07:34 01/26/19 07:34 01/26/19 07:34 01/26/19 07:34 Exam: General: In no acute distress. Respiratory exam: CTAB. no accessory muscle use, rales, rhonchi, wheezes Cardiovascular exam: RRR, +S1, +S2. systolic murmur heard. GI/Abdominal exam: Non-tender, Non-distended, soft, no peritoneal signs. silva in palce Extremities exam: no pedal edema, pulses palpable in b/l lower extremities. no calf tenderness Neurological exam: Alert awake. Not answering questions, mask face - Summary of Assessment and Plan Summary of Assessment and Plan: Assessment Acute metabolic encephalopathy most likely secondary to dehyration/UTI on baseline dementia and parkinson ANISA on CKD 3 severe Dementia Elevated troponin DVT prophylaxis hypokalemia Afib Chronic thrombocytopenia COPD HTN parkinsons hypothyroidism. Plan - Urine growing proteus sensitive only to zosyn, ertapenem and imipenam. Patient has allergy to penicillins. Started on meropenam. blood cultures NGTD. Urine also show enterococcus sensitive only to linezolid and was started on it. More alert after starting meropenam. c/w antibiotics for now. Will have to stop patients carbidopa, rameron and mirtazapine while on linezolid. Monitor BP. Will consult ID tomorrow for antibiotic guidance. - no acute changes on renal ultrasound. Had chronic medical disease. Has good urine output. Renal function improved with ivf and albumin, now almost at baseline. No signs of overload. stop albumin and IVF later today if good PO intake. Strict I/O. - AMS likely related to acute illness and dehydration on baseline dementia and parkinsons. Mentation improved. Head CT unremarkable. MRI unremarkable. has held remeron, carbidopa, mirtazapine while on linezolid to avoid serotonin syndrome. Will discuss with ID with need of continuing linezolid. - Elevated troponin most likely secondary to dehydration and ANISA with demand ischemia. Family does not want patient to be on aspirin 81 mg as was advised by pcp. c/w metoprolol. also poor candidate for invasive intervention. - A. fib rate controlled with metoprolol. not on anticoagulation- secondary to falls. not on aspirin as mentioned above. - Had discussed with family about possible palliative care evaluation but family not receptive of the idea and "wants to keep her as long as possible". They did however did not want aggressive measure and made her DNRCCADNI. - DVT prophylaxis with heparin sc Internal Medicine: Result - Labs CBC & Chem 7: 01/22/19 07:10 01/26/19 03:38 Labs: BMP 01/26/19 03:38 Sodium 140 Potassium 4.8 Chloride 112 H Carbon Dioxide 20 L BUN 18 Creatinine 1.13 Glucose 110 H Calcium 9.2 - ABG Interpretation ABG results: PT/INR, D-dimer PT 12.2 Seconds (9.4-12.1) H 01/20/19 22:11 Consult Discharge Plan - Plan Referrals: Braden Garibay MD [Primary Care Provider] - Prescriptions: Ertapenem [INVanz] 1,000 mg IM DAILY 10 Days #10 vial Meropenem 500 mg IV Q12H 10 Days #20 vial
[2019-01-26] MEDS: Budesonide/Formoterol 160/4.5 1 PUFF INH IH SCH ×2 (10:36→22:16)
[2019-01-26] MEDS ORDERED: hydrALAZINE 25 MG TABLET PO PRN (11:03)
[2019-01-27] MEDS: 0.9 % Sodium Chloride 1,000 ML IVC SCH (02:39)
[2019-01-27] MEDS: *HR* Heparin 5,000 UNIT/ML VIAL SQ SCH ×2 (05:36→18:01)
[2019-01-27] MEDS: Meropenem 500 MG in Water for inj. (sterile) 20 ML 10 ML IVP SCH (05:37)
[2019-01-27] MEDS: Budesonide/Formoterol 160/4.5 1 PUFF INH IH SCH ×2 (07:47→20:11)
[2019-01-27] MEDS: Cyanocobalamin (B-12) 1,000 MCG TABLET PO SCH (09:48)
[2019-01-27] MEDS: Magnesium Oxide 400 MG TABLET PO SCH (09:48)
[2019-01-27] MEDS: Folic Acid 1 MG TABLET PO SCH (09:49)
[2019-01-27] MEDS: Megestrol Acetate 400 MG/10 ML UDC PO SCH (09:49)
[2019-01-27] MEDS: Lactobacillus 1 EACH CAP.SPRINK PO SCH (09:49)
[2019-01-27] MEDS: Azelastine 0.1% Nasal Spray 30 ML BOTTLE NS SCH (09:49)
--- NOTE | 2019-01-27 11:32 | Infectious Disease Consult ---
Infectious Disease-Consult - Encounter Date/Time Date of Encounter: 01/27/19 Time of Encounter: 09:45 - Data of Consult Patient: known to practice within the last 3 years Reason for consult: Recurrent UTI, MDRO Proteus VRE enterococcus Consult date: 01/27/19 Requesting Physician: Viral Pollard MD Primary Care Provider: Braden Garibay MD - HPI HPI: Ms. Griffin is an 83yo woman who presented to [facility] on 01/21/19 from [facility] due to altered mental status and concern about UTI. Infectious disease was consulted on 01/27/19 due to MDRO Proteus and VRE enterococcus in the urine with recurrent UTIs and need for antibiotic recommendations. 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 The patient is a very poor historian, and she is noncommunicative at baseline. She apparently does have severe dementia and is able to provide some of her ADLs including feeding herself at certain occasions, however at the time of examination she is nonverbal and does not follow commands or speak to me. There are also no family members available in the room at the time of examination, so my history is directly received from previous documentation as well as nursing staff and techs. The patient is known to the service due to multiple consults due to multidrug resistant organisms in the past. According to her notes, the patient came in with altered mentation. She was apparently more fatigued than she had been previously, was not speaking as much, and was not as interactive as she usually is. Her family had concerns because this is atypical for her according to them. She has had multiple recent infections and has had to come to the hospital due to urinary tract infections several times in the past. In the past, the patient has additionally had bilateral renal calculi with severe hydronephrosis which required stents in 08/31. Since that time, she continues to have episodes of altered mentation which results are pending to the hospital for IV antibiotics and then subsequently discharged back to a nursing facility. On admission on this occasion, the patient's initial ED labs did demonstrate a normal leukocyte count, however her serum creatinine was 1.94 which is well above her previously documented baseline that appears to be around 1.2-1.3. Her urinalysis demonstrated WBCs that were too numerous to count. She had a urine culture on 01/20/19 that has now grown multidrug resistant Proteus mirabilis and vancomycin- resistant enterococcus faecium. The patient is currently being treated with toy openem and linezolid. - ROS Review of Systems: Unable to obtain due to mental status and nonverbal state. - Results CBC & Chem 7: 01/22/19 07:10 01/26/19 03:38 - Exam Vitals: Temp Pulse Resp BP Pulse Ox 97.9 F 72 16 163/95 96 01/27/19 07:10 01/27/19 05:36 01/27/19 07:50 01/27/19 07:10 01/27/19 07:50 Exam: Gen: Vitals noted. No acute distress. Patient opens eyes at verbal stimuli, however does not respond. Eyes: anicteric sclerae, moist conjunctivae; no lid-lag; Pupils equal and reactive to light HENT: Atraumatic; oropharynx clear with moist mucous membranes and no mucosal ulcerations; normal hard and soft palate Neck: Trachea midline; supple, no thyromegaly or lymphadenopathy Cardiac: RRR, no murmur, +S1/S2 Pulmonary: CTA bilaterally, no wheezes, rales or rhonchi, equal chest expansion Abdomen: soft, nontender, no guarding. No masses or hepatosplenomegaly MSK: ROM intact, no joint swelling noted Extremities: no BLE edema, nontender calf, no cyanosis or clubbing Skin: Normal temperature, turgor and texture; no rash, ulcers or subcutaneous nodules Neuro: Does not follow commands. She did answer some questions with had not or possible no however it is hard to say whether or not it was appropriate. Psych: Patient is nonverbal and noncommunicative. She does not follow commands. Acetaminophen [Tylenol] 650 mg PO Q6HR PRN 09/14/15 [History] Budesonide/Formoterol 160/4.5 [Symbicort 160/4.5] 2 puff IH BID 09/14/15 [History] Docusate [Colace] 100 mg PO BID 09/14/15 [History] Folic Acid 1 mg PO DAILY 09/14/15 [History] Magnesium Oxide [Magnesium] 400 mg PO DAILY 09/14/15 [History] Omeprazole [PriLOSEC] 20 mg PO DAILY 09/14/15 [History] Azelastine 0.1% Nasal [place] [Astelin] 2 spr NS DAILY 05/19/17 [History] Carbidopa/Levodopa ER 50/200 [Sinemet ER 50-200 Tab] 1 tab PO BID 05/19/17 [History] Lactobacillus Acidophilus [Acidophilus] 1 cap PO DAILY 05/19/17 [History] Quetiapine Fumarate [Seroquel] 12.5 mg PO HS 02/28/18 [History] Bisacodyl [Dulcolax] 10 mg RC DAILY PRN #30 supp.rect 04/04/18 [Rx] Megestrol Acetate [Megace] 800 mg PO DAILY #30 bottle 04/04/18 [Rx] Mirtazapine 7.5 mg PO HS 04/25/18 [History] Ferrous Sulfate [Iron] 325 mg PO DAILY 07/15/18 [History] Levothyroxine Sodium [Euthyrox] 175 mcg PO DAILY 11/08/18 [History] Cyanocobalamin (Vitamin B-12) [Vitamin B12] 1,000 mcg PO DAILY 12/16/18 [History] Metoprolol [Lopressor] 25 mg PO BID 12/16/18 [History] Albuterol Sulfate [Albuterol Inhaler] 2 puff IH Q4HR PRN 01/21/19 [History] Calcitriol 1 mcg PO DAILY 01/21/19 [History] Allergy/AdvReac Type Severity Reaction Status Date / Time Amoxicillin Allergy unknown Verified 08/26/18 13:14 atropine Allergy unknown Verified 08/26/18 13:14 codeine Allergy See Verified 08/26/18 13:14 Comments Diphenoxylate Allergy unknown Verified 08/26/18 13:14 enalapril Allergy unknown Verified 08/26/18 13:14 esomeprazole Allergy Unknown Verified 08/26/18 13:14 gluten Allergy Diarrhea Verified 08/26/18 13:14 hydromorphone [Hydromorphone] Allergy unknown Verified 08/26/18 13:14 Iodinated Contrast- Oral and Allergy unknown Verified 08/26/18 13:14 IV Dye [Iodinated Contrast Media - IV Dye] nitrofurantoin Allergy unknown Verified 08/26/18 13:14 Penicillins Allergy unkown Verified 08/26/18 13:14 piroxicam Allergy unknown Verified 08/26/18 13:14 Sulfa (Sulfonamide Allergy unknown Verified 08/26/18 13:14 Antibiotics) - Assessment and Plan (1) Metabolic encephalopathy Current Visit: Yes Status: Acute Metabolic encephalopathy secondary to multifactorial etiologies including uncomp licated UTI Patient presented with severe ANISA, UTI with urinary retention and dehydration UA 01/20/19 showed large leukocyte esterase with too numerous to count white blood cells Culture 01/20/19 of urine demonstrated MDRO Proteus mirabilis and VRE enterococcus faecium Although patient does not respond verbally, she did have urinary retention requiring insertion of Nuñez catheter This appears to be an uncomplicated urinary tract infection There are other possible etiologies resulting in metabolic encephalopathy as well the The patient has been treated with Zyvox and meropenem for Recommendations -Zyvox and meropenem 3 days -We will give one time dose of fosfomycin to complete course for uncomplicated UTI -If patient continues to have encephalopathy, investigate other potential sources -Patient will likely continue to have positive cultures due to colonization SNOMED Code(s): 58406663 (2) UTI (urinary tract infection) Current Visit: Yes Status: Ruled-out Uncomplicated urinary tract infection with multidrug resistant organism Patient has had a myriad of cultures with positivity for multidrug resistant organisms in the past It is difficult to tell whether or not the patient is symptomatic due to her unresponsive nature Still, she did have urinary retention requiring placement of a Nuñez catheter at time of admission We will treat with fosfomycin as above Qualifiers: Urinary tract infection type: acute cystitis Hematuria presence: without hematuria Qualified Code(s): N30.00 - Acute cystitis without hematuria SNOMED Code(s): 86330150 (3) Atrial fibrillation with RVR Current Visit: Yes Status: Acute Atrial fibrillation with rapid ventricular response Treatment per primary team SNOMED Code(s): 028234649540758 (4) COPD (chronic obstructive pulmonary disease) Current Visit: No Status: Chronic Chronic COPD, no current exacerbation Qualifiers: COPD type: emphysema Emphysema type: unspecified Qualified Code(s): J43.9 - Emphysema, unspecified SNOMED Code(s): 54614931 (5) Allergy to multiple antibiotics Current Visit: No Status: Acute Allergic to multiple antibiotics Currently transitioning to one-time dose of fosfomycin SNOMED Code(s): 473270284217417 Past Med Surg Social Fam HX - Past Medical History Medical history: atrial fibrillation, COPD, dementia, GERD, hypertension, osteoporosis, thyroid disease, venous stasis, other Additional medical history: hiatal hernia, parkinsons, celiac disease Psychiatric history: anxiety, depression - Past Surgical History Surgical History: cataract, hysterectomy, thyroidectomy Additional surgical history: codi leg surgery for varicose veins - Social History Smoking Status: Never smoker Smokeless Tobacco Status: No Alcohol use: none Drug use: none - Family History Father Living Status: Hx Family Cardiac Disorders: Yes Mother Living Status: Hx Family Cardiac Disorders: Yes Consult Discharge Plan - Plan Referrals: Braden Garibay MD [Primary Care Provider] - - Attending Attestation I examined this patient and my medical decision-making was reviewed with the Resident Physician. I agree with the documented findings, disposition and treatment plan as described except to the extent set forth below. This is an addendum to original report dictated by resident physician. Please refer to resident's note for full detail. We were asked to evaluate a patient with metabolic encephalopathy that was thought it was due to urinary tract infection. Patient's urine culture was positive for Proteus mirabilis multidrug resistant and vancomycin resistant enterococcus. Patient currently laying in bed does not appear to be in distress but really does not answer questions or follow commands. Assessment and plan: 1.Metabolic encephalopathy could be secondary to dehydration or UTI or polypharmacy. Patient is on Seroquel and Namenda 2.Urinary tract infection causative organism Proteus mirabilis multidrug resistant organism and VRE 3.A. fib with RVR 4.Acute kidney injury likely prerenal improved 5.Multiple antibiotic allergies including penicillin, sulfa, nitrofurantoin. Exact reaction not known Recommendations: Discussed with Dr. Pollard, and stopping the Namenda DC Zyvox DC meropenem Give fosfomycin 1 packet and consider 2 more packets 48 hours apart
--- NOTE | 2019-01-27 15:05 | Internal Med Progress Note ---
Hospitalist Progress Note - Encounter Date of Encounter: 01/27/19 Time of Encounter: 09:04 - Subjective Interval History: Patient seen and examined this morning at bedside. No acute overnight events. Patient more alert this morning and able to know she is in hospital however shortly after became mute. Did not offer any complaints. - Exam Vitals: Temp Pulse Resp BP Pulse Ox 98.5 F 102 20 143/87 100 01/27/19 11:42 01/27/19 11:42 01/27/19 11:42 01/27/19 11:42 01/27/19 11:42 Exam: General: In no acute distress. Respiratory exam: CTAB. no accessory muscle use, rales, rhonchi, wheezes Cardiovascular exam: RRR, +S1, +S2. systolic murmur heard. GI/Abdominal exam: Non-tender, Non-distended, soft, no peritoneal signs. silva in palce Extremities exam: no pedal edema, pulses palpable in b/l lower extremities. no calf tenderness Neurological exam: Alert awake. Not answering questions, mask face - Summary of Assessment and Plan Summary of Assessment and Plan: Assessment Acute metabolic encephalopathy most likely secondary to dehyration/UTI on baseline dementia and parkinson ANISA on CKD 3 severe Dementia Elevated troponin DVT prophylaxis hypokalemia Afib Chronic thrombocytopenia COPD HTN parkinsons hypothyroidism. Plan - Urine growing proteus sensitive only to zosyn, ertapenem and imipenam. Patient has allergy to penicillins. Started on meropenam. blood cultures NGTD. Urine also show enterococcus sensitive only to linezolid and was started on it. c/w meropenam and linezolid for now. carbidopa, rameron and mirtazapine were stopped while on linezolid. Possible contaminant. ID consulted for antibiotic guidance. - no acute changes on renal ultrasound. Had chronic medical disease. Has good urine output. Renal function improved with ivf and albumin - AMS likely related to acute illness and dehydration on baseline dementia and parkinsons. Mentation improved. Head CT unremarkable. MRI unremarkable. has held remeron, carbidopa, mirtazapine while on linezolid to avoid serotonin syndrome. Awaiting ID recommendation - Elevated troponin most likely secondary to dehydration and ANISA with demand ischemia. Family does not want patient to be on aspirin 81 mg as was advised by pcp. c/w metoprolol. also poor candidate for invasive intervention. - A. fib rate controlled with metoprolol. not on anticoagulation- secondary to falls. not on aspirin as mentioned above. - Had discussed with family about possible palliative care evaluation but family not receptive of the idea and "wants to keep her as long as possible". They did however did not want aggressive measure and made her DNRCCADNI. - DVT prophylaxis with heparin sc - Time Spent with Patient Total time spent is greater than 50% in coordination of care (as documented) at patient's floor/unit and/or counseling patient: Internal Medicine: Result - Labs CBC & Chem 7: 01/22/19 07:10 01/26/19 03:38 - ABG Interpretation ABG results: PT/INR, D-dimer PT 12.2 Seconds (9.4-12.1) H 01/20/19 22:11 Consult Discharge Plan - Plan Referrals: Braden Garibay MD [Primary Care Provider] - Prescriptions: Ertapenem [INVanz] 1,000 mg IM DAILY 10 Days #10 vial Meropenem 500 mg IV Q12H 10 Days #20 vial
--- NOTE | 2019-01-27 17:29 | Discharge Summary ---
- NOTES TO OUTPATIENT PROVIDER Notes to Outpatient Provider: Patient will need a voiding trial as outpatient. Patient's movement in discontinued given unlikely benefit or long-term and possibly contributing to encephalopathy along with paroxetine. Orders not resulted at time of discharge: Pending orders 01/27/19 13:42 Basic Metabolic Panel Routine Date of Encounter: 01/27/19 Time of Encounter: 17:29 - Discharge Diagnosis (1) Altered mental status Priority: Primary Status: Acute Qualifiers: Altered mental status type: stupor Qualified Code(s): R40.1 - Stupor (2) Metabolic encephalopathy Priority: Primary Status: Acute (3) UTI (urinary tract infection) Priority: Primary Status: Ruled-out Qualifiers: Urinary tract infection type: acute cystitis Hematuria presence: without hematuria Qualified Code(s): N30.00 - Acute cystitis without hematuria (4) Anemia Priority: Primary Status: Acute Qualifiers: Anemia type: iron deficiency Qualified Code(s): D50.8 - Other iron deficiency anemias (5) DVT prophylaxis Priority: Secondary Status: Acute (6) Elevated troponin Priority: Primary Status: Acute (7) Chronic kidney disease Priority: Secondary Status: Chronic Qualifiers: Chronic kidney disease stage: stage 3 (moderate) Qualified Code(s): N18.3 - Chronic kidney disease, stage 3 (moderate) (8) Dementia Priority: Secondary Status: Chronic Qualifiers: Dementia type: Parkinson's disease Dementia behavioral disturbance: without behavioral disturbance Qualified Code(s): G20 - Parkinson's disease; F02.80 - Dementia in other diseases classified elsewhere without behavioral disturbance (9) Hypothyroidism Priority: Secondary Status: Chronic Qualifiers: Hypothyroidism type: postoperative Qualified Code(s): E89.0 - Postprocedural hypothyroidism (10) Thrombocytopenia Priority: Secondary Status: Chronic (11) ANISA (acute kidney injury) Priority: Primary Status: Resolved Hospital course: Ms. Griffin is a 83 year old female with past medical history of atrial fibrillation, COPD, dementia, Parkinson's, hypothyroidism came in with complaint of altered mental status from long term. Patient was found to have ANISA along with signs of UTI with abnormal UA. Patient was started on ceftriaxone. She is not on any blood thinner given bleeding risk. Patient was started on IV fluids and ANISA was prerenal in nature likely due to decreased oral intake. Patient mentation improved after IV hydration. Urine culture grew resistant Proteus and her antibodies were adjusted to meropenem. Cultures also grew VRE later on and linezolid was added. Her cultures did not grow any organism. Patient developed acute urinary retention had to put Silva catheter given her mentation. Patient's mentation improved with normalization of her renal function. Her psychoactive medication were held with her antibiotics and also possibly leading to altered mental status. Infectious disease consult was obtained who recommended to stop linezolid and meropenem and finish course with 1 dose of fosfomycin. Patient is otherwise stable and okay to be discharged to long term and placement is available. Patient CODE STATUS was discussed including consideration of palliative care however family did not want to consider hospice at this time and only comfortable keeping patient DNR CCA DNI along with active treatment. We will stop patient's trimethoprim, memantine, paroxetine in on discharge. Discharge discussed with: patient, nurse, social work, consultant technology - Time Spent with Patient Total time spent providing and/or coordinating discharge services: Time spent: Greater than 30 minutes (40) - Discharge Medications Prescriptions: Continued Acetaminophen [Tylenol] 650 mg PO Q6HR PRN PRN Reason: Fever/Pain Folic Acid 1 mg PO DAILY Budesonide/Formoterol 160/4.5 [Symbicort 160/4.5] 2 puff IH BID Omeprazole [PriLOSEC] 20 mg PO DAILY Docusate [Colace] 100 mg PO BID Magnesium Oxide [Magnesium] 400 mg PO DAILY Carbidopa/Levodopa ER 50/200 [Sinemet ER 50-200 Tab] 1 tab PO BID Azelastine 0.1% Nasal [place] [Astelin] 2 spr NS DAILY Lactobacillus Acidophilus [Acidophilus] 1 cap PO DAILY Quetiapine Fumarate [Seroquel] 12.5 mg PO HS Bisacodyl [Dulcolax] 10 mg RC DAILY PRN #30 supp.rect PRN Reason: Constipation Megestrol Acetate [Megace] 800 mg PO DAILY #30 bottle Mirtazapine 7.5 mg PO HS Ferrous Sulfate [Iron] 325 mg PO DAILY Levothyroxine Sodium [Euthyrox] 175 mcg PO DAILY Cyanocobalamin (Vitamin B-12) [Vitamin B12] 1,000 mcg PO DAILY Metoprolol [Lopressor] 25 mg PO BID Albuterol Sulfate [Albuterol Inhaler] 2 puff IH Q4HR PRN PRN Reason: Shortness Of Breath/WHEEZE Calcitriol 1 mcg PO DAILY Discontinued PARoxetine HCl [Paroxetine HCl] 10 mg PO DAILY Magnesium Hydroxide [Milk of Magnesia] 2,400 mg PO DAILY PRN PRN Reason: Constipation Memantine HCl [Memantine HCl ER] 28 mg PO DAILY Trimethoprim 100 mg PO HS Home Medications: Acetaminophen [Tylenol] 650 mg PO Q6HR PRN 09/14/15 [History] Budesonide/Formoterol 160/4.5 [Symbicort 160/4.5] 2 puff IH BID 09/14/15 [History] Docusate [Colace] 100 mg PO BID 09/14/15 [History] Folic Acid 1 mg PO DAILY 09/14/15 [History] Magnesium Oxide [Magnesium] 400 mg PO DAILY 09/14/15 [History] Omeprazole [PriLOSEC] 20 mg PO DAILY 09/14/15 [History] Azelastine 0.1% Nasal [place] [Astelin] 2 spr NS DAILY 05/19/17 [History] Carbidopa/Levodopa ER 50/200 [Sinemet ER 50-200 Tab] 1 tab PO BID 05/19/17 [History] Lactobacillus Acidophilus [Acidophilus] 1 cap PO DAILY 05/19/17 [History] Quetiapine Fumarate [Seroquel] 12.5 mg PO HS 02/28/18 [History] Bisacodyl [Dulcolax] 10 mg RC DAILY PRN #30 supp.rect 04/04/18 [Rx] Megestrol Acetate [Megace] 800 mg PO DAILY #30 bottle 04/04/18 [Rx] Mirtazapine 7.5 mg PO HS 04/25/18 [History] Ferrous Sulfate [Iron] 325 mg PO DAILY 07/15/18 [History] Levothyroxine Sodium [Euthyrox] 175 mcg PO DAILY 11/08/18 [History] Cyanocobalamin (Vitamin B-12) [Vitamin B12] 1,000 mcg PO DAILY 12/16/18 [History] Metoprolol [Lopressor] 25 mg PO BID 12/16/18 [History] Albuterol Sulfate [Albuterol Inhaler] 2 puff IH Q4HR PRN 01/21/19 [History] Calcitriol 1 mcg PO DAILY 01/21/19 [History] Allergies/Adverse Reactions: Allergy/AdvReac Type Severity Reaction Status Date / Time Amoxicillin Allergy unknown Verified 08/26/18 13:14 atropine Allergy unknown Verified 08/26/18 13:14 codeine Allergy See Verified 08/26/18 13:14 Comments Diphenoxylate Allergy unknown Verified 08/26/18 13:14 enalapril Allergy unknown Verified 08/26/18 13:14 esomeprazole Allergy Unknown Verified 08/26/18 13:14 gluten Allergy Diarrhea Verified 08/26/18 13:14 hydromorphone [Hydromorphone] Allergy unknown Verified 08/26/18 13:14 Iodinated Contrast- Oral and Allergy unknown Verified 08/26/18 13:14 IV Dye [Iodinated Contrast Media - IV Dye] nitrofurantoin Allergy unknown Verified 08/26/18 13:14 Penicillins Allergy unkown Verified 08/26/18 13:14 piroxicam Allergy unknown Verified 08/26/18 13:14 Sulfa (Sulfonamide Allergy unknown Verified 08/26/18 13:14 Antibiotics) Date of admission: 01/23/19 14:08 Primary care physician: Braden Garibay MD Consults: 01/21/19 02:03 Consult to Instrument Mechanic [CONS] Routine Reason for SW Consult: patient from [facility] will need F/U upon discharge 01/24/19 11:53 Consult to Invasive Line Access Team [CONS] Routine Reason for Consult: home atb Line Type: EPIV 01/26/19 10:24 Consult to Infectious Diseases [CONS] Routine Consulting Provider: Infectious Disease Shameka Reason for Consult: MDRO proteus, VRE, antibiotic recommendation Call Completed: No Discharging clinician: Viral Pollard - Constitutional Vitals: Temp Pulse Resp BP Pulse Ox 99.2 F 91 20 122/86 100 01/27/19 15:26 01/27/19 15:26 01/27/19 15:26 01/27/19 15:26 01/27/19 15:26 Exam: General: In no acute distress. Respiratory exam: CTAB. no accessory muscle use, rales, rhonchi, wheezes Cardiovascular exam: RRR, +S1, +S2. systolic murmur heard. GI/Abdominal exam: Non-tender, Non-distended, soft, no peritoneal signs. silva in palce Extremities exam: no pedal edema, pulses palpable in b/l lower extremities. no calf tenderness Neurological exam: Alert awake. Not answering questions, mask face. on/off phenomenon - Patient Status Disposition: Transfer SNF Condition: Fair - Discharge Instructions Follow Up With: Braden Garibay MD [Primary Care Provider] -
[2019-01-27] MEDS ORDERED: Fosfomycin Tromethamine 3 GM Packet PO ONE (17:45)
--- NOTE | 2019-01-27 17:48 | Physician Discharge Referral ---
ExtendedCare Referral Info Institutional Level of Care: Skilled - Diagnosis (1) Altered mental status Status: Acute (2) Metabolic encephalopathy Status: Acute (3) UTI (urinary tract infection) Status: Ruled-out (4) Anemia Status: Acute (5) DVT prophylaxis Status: Acute (6) Elevated troponin Status: Acute (7) Chronic kidney disease Status: Chronic (8) Dementia Status: Chronic (9) Hypothyroidism Status: Chronic (10) Thrombocytopenia Status: Chronic (11) ANISA (acute kidney injury) Status: Resolved - Transfer Medications Home Medications: Acetaminophen [Tylenol] 650 mg PO Q6HR PRN 09/14/15 [History] Budesonide/Formoterol 160/4.5 [Symbicort 160/4.5] 2 puff IH BID 09/14/15 [History] Docusate [Colace] 100 mg PO BID 09/14/15 [History] Folic Acid 1 mg PO DAILY 09/14/15 [History] Magnesium Oxide [Magnesium] 400 mg PO DAILY 09/14/15 [History] Omeprazole [PriLOSEC] 20 mg PO DAILY 09/14/15 [History] Azelastine 0.1% Nasal [place] [Astelin] 2 spr NS DAILY 05/19/17 [History] Carbidopa/Levodopa ER 50/200 [Sinemet ER 50-200 Tab] 1 tab PO BID 05/19/17 [History] Lactobacillus Acidophilus [Acidophilus] 1 cap PO DAILY 05/19/17 [History] Quetiapine Fumarate [Seroquel] 12.5 mg PO HS 02/28/18 [History] Bisacodyl [Dulcolax] 10 mg RC DAILY PRN #30 supp.rect 04/04/18 [Rx] Megestrol Acetate [Megace] 800 mg PO DAILY #30 bottle 04/04/18 [Rx] Mirtazapine 7.5 mg PO HS 04/25/18 [History] Ferrous Sulfate [Iron] 325 mg PO DAILY 07/15/18 [History] Levothyroxine Sodium [Euthyrox] 175 mcg PO DAILY 11/08/18 [History] Cyanocobalamin (Vitamin B-12) [Vitamin B12] 1,000 mcg PO DAILY 12/16/18 [History] Metoprolol [Lopressor] 25 mg PO BID 12/16/18 [History] Albuterol Sulfate [Albuterol Inhaler] 2 puff IH Q4HR PRN 01/21/19 [History] Calcitriol 1 mcg PO DAILY 01/21/19 [History] Allergies/Adverse Reactions: Allergy/AdvReac Type Severity Reaction Status Date / Time Amoxicillin Allergy unknown Verified 08/26/18 13:14 atropine Allergy unknown Verified 08/26/18 13:14 codeine Allergy See Verified 08/26/18 13:14 Comments Diphenoxylate Allergy unknown Verified 08/26/18 13:14 enalapril Allergy unknown Verified 08/26/18 13:14 esomeprazole Allergy Unknown Verified 08/26/18 13:14 gluten Allergy Diarrhea Verified 08/26/18 13:14 hydromorphone [Hydromorphone] Allergy unknown Verified 08/26/18 13:14 Iodinated Contrast- Oral and Allergy unknown Verified 08/26/18 13:14 IV Dye [Iodinated Contrast Media - IV Dye] nitrofurantoin Allergy unknown Verified 08/26/18 13:14 Penicillins Allergy unkown Verified 08/26/18 13:14 piroxicam Allergy unknown Verified 08/26/18 13:14 Sulfa (Sulfonamide Allergy unknown Verified 08/26/18 13:14 Antibiotics) - Respiratory Orders Smoking Cessation: Smoking cessation has been advised. For more information, call the [place] Tobacco Quit Line at 3-295-HQRTNOW. CERTIFICATION: I certify that the transfer of the above named patient to an Extended Care [facility] is necessary for the continuing treatment of the diagnosis listed. The above information is true and accurate reflection of patient's current condition. Confidential - Redisclosure prohibited without a patient's written consent.
[2019-01-27] MEDS: *HR* Metoprolol 5 MG/5 ML VIAL IVP ONE (23:26)
[2019-01-28] MEDS: *HR* Metoprolol 5 MG/5 ML VIAL IVP ONE (00:53)
[2019-01-28 04:39] LABS: Hematocrit 32.4 % (35.3-44.9); Hemoglobin 10.2 g/dL (11.5-15.4); Mean Corpuscular HGB Conc 31.5 g/dL (31.6-35.5); Mean Corpuscular Hemoglobin 31.3 pg (28.0-33.3); Mean Corpuscular Volume 99.4 fL (83.0-100.0); Mean Platelet Volume 13.1 fL (9.4-12.4); Platelet Count 107 K/mcL (140-400); Red Blood Count 3.26 M/mcL (3.82-4.97); Red Cell Distribution Width 14.1 % (11.5-14.5); White Blood Count 5.6 K/mcL (4.3-11.1)
[2019-01-28] MEDS: *HR* Heparin 5,000 UNIT/ML VIAL SQ SCH (04:46)
[2019-01-28 04:49] LABS: Calcium 9.3 mg/dL (8.6-10.3)
[2019-01-28 07:15] VITALS: BP 148/92
[2019-01-28] MEDS: Budesonide/Formoterol 160/4.5 1 PUFF INH IH SCH (07:23)
[2019-01-28] MEDS: Megestrol Acetate 400 MG/10 ML UDC PO SCH (09:55)
[2019-01-28] MEDS: Folic Acid 1 MG TABLET PO SCH (09:55)
[2019-01-28] MEDS: Magnesium Oxide 400 MG TABLET PO SCH (09:56)
[2019-01-28] MEDS: Lactobacillus 1 EACH CAP.SPRINK PO SCH (09:56)
[2019-01-28] MEDS: Cyanocobalamin (B-12) 1,000 MCG TABLET PO SCH (09:56)
[2019-01-28] MEDS: Azelastine 0.1% Nasal Spray 30 ML BOTTLE NS SCH (09:57)
--- NOTE | 2019-01-28 10:26 | Electrocardiograph Report ---
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
--- NOTE | 2019-01-28 12:13 | Internal Med Progress Note ---
Hospitalist Progress Note - Encounter Date of Encounter: 01/28/19 Time of Encounter: 09:30 - Subjective Interval History: No acute events overnight. Heart rate remained better controlled after uptitrating bb to TID yesterday. - Exam Vitals: Temp Pulse Resp BP Pulse Ox 98.9 F 85 18 148/92 100 01/28/19 07:06 01/28/19 07:06 01/28/19 07:25 01/28/19 07:06 01/28/19 07:25 Exam: General: In no acute distress. Respiratory exam: CTAB. no accessory muscle use, rales, rhonchi, wheezes Cardiovascular exam: RRR, +S1, +S2. systolic murmur heard. GI/Abdominal exam: Non-tender, Non-distended, soft, no peritoneal signs. silva in palce Extremities exam: no pedal edema, pulses palpable in b/l lower extremities. no calf tenderness Neurological exam: Alert awake. Flat affect. on/off phenomenon - Assessment and Plan (1) Hypothyroidism Current Visit: No Status: Chronic (2) Thrombocytopenia Current Visit: No Status: Chronic (3) Dementia Current Visit: No Status: Chronic (4) DVT prophylaxis Current Visit: No Status: Acute (5) Elevated troponin Current Visit: No Status: Acute (6) UTI (urinary tract infection) Current Visit: Yes Status: Ruled-out (7) ANISA (acute kidney injury) Current Visit: No Status: Resolved (8) Metabolic encephalopathy Current Visit: Yes Status: Acute (9) Chronic kidney disease Current Visit: No Status: Chronic (10) Anemia Current Visit: No Status: Acute (11) Altered mental status Current Visit: Yes Status: Acute - Summary of Assessment and Plan Summary of Assessment and Plan: Dx: Acute metabolic encephalopathy most likely secondary to dehydration/ANISA and UTI in the background of dementia and parkinson's disease. ?polypharmacy ANISA on CKD 3 Afib UTI Dementia Elevated troponin DVT prophylaxis Chronic thrombocytopenia COPD HTN parkinsons hypothyroidism. Plan - Urine growing proteus sensitive only to zosyn, ertapenem and imipenam as well as enterococcus sensitive only to linezolid. Patient has allergy to penicillins. Was initially on meropenam/linezolid which was switched to Fosfomycin per ID. - Discharge was delayed yesterday due to transient episode of RVR in the rate of 135. Improved on increased dose of metoprolol, would discharge her on 50mgBID. not on anticoagulation- secondary to falls. not on aspirin as mentioned below. - AMS likely related to acute illness and dehydration on baseline dementia and parkinsons. Mentation improved. Head CT unremarkable. MRI unremarkable. - Elevated troponin most likely secondary to dehydration and ANISA with demand ischemia. Family does not want patient to be on aspirin 81 mg as was advised by pcp. c/w metoprolol. also poor candidate for invasive intervention. - DVT prophylaxis with heparin sc - discharge to F as outlined by Dr. Pollard's summary dated 01/27. - Time Spent with Patient Total time spent is greater than 50% in coordination of care (as documented) at patient's floor/unit and/or counseling patient: less than 15 minutes Plan of Care Discussed with: nurse Internal Medicine: Result - Labs CBC & Chem 7: 01/28/19 04:10 01/28/19 04:10 Labs: Short CBC 01/28/19 Range/Units 04:10 WBC 5.6 (4.3-11.1) K/mcL Hgb 10.2 L (11.5-15.4) g/dL Hct 32.4 L (35.3-44.9) % Plt Count 107 L (140-400) K/mcL BMP 01/28/19 04:10 Sodium 139 Potassium 5.0 Chloride 110 H Carbon Dioxide 20 L BUN 21 Creatinine 1.13 Glucose 98 Calcium 9.3 - ABG Interpretation ABG results: PT/INR, D-dimer PT 12.2 Seconds (9.4-12.1) H 01/20/19 22:11 Consult Discharge Plan - Plan Referrals: Braden Garibay MD [Primary Care Provider] - Prescriptions: Metoprolol [Lopressor] 50 mg PO BID #60 tablet (1) Hypothyroidism Qualifiers: Hypothyroidism type: postoperative Qualified Code(s): E89.0 - Postprocedural hypothyroidism (3) Dementia Qualifiers: Dementia type: Parkinson's disease Dementia behavioral disturbance: without behavioral disturbance Qualified Code(s): G20 - Parkinson's disease; F02.80 - Dementia in other diseases classified elsewhere without behavioral disturbance (6) UTI (urinary tract infection) Qualifiers: Urinary tract infection type: acute cystitis Hematuria presence: without hematuria Qualified Code(s): N30.00 - Acute cystitis without hematuria (9) Chronic kidney disease Qualifiers: Chronic kidney disease stage: stage 3 (moderate) Qualified Code(s): N18.3 - Chronic kidney disease, stage 3 (moderate) (10) Anemia Qualifiers: Anemia type: iron deficiency Qualified Code(s): D50.8 - Other iron deficiency anemias (11) Altered mental status Qualifiers: Altered mental status type: stupor Qualified Code(s): R40.1 - Stupor
== END 2019-01-28 12:42 | DRG 682 ==
LOC: EMEROOARM 20:45 → 2NENU 20:45 → SUATTDRO 01-21 00:06 → 2NENU 01-21 01:25 → SUATTDRO 01-23 14:08
PROVIDERS: ADMIT Internal Medicine; ATTEND Internal Medicine

== ENCOUNTER 2019-02-27 21:52 | Inpatient (IN) ==
[2019-02-27] MEDS ORDERED: 0.9 % Sodium Chloride 1,000 ML IVC ONE (22:21)
--- NOTE | 2019-02-27 22:39 | Emergency Department Note ---
Disposition Clinical Impression: Elevated troponin UTI (urinary tract infection) Qualifiers: Urinary tract infection type: acute cystitis Hematuria presence: without he maturia Qualified Code(s): N30.00 - Acute cystitis without hematuria Altered mental status Qualifiers: Altered mental status type: unspecified Qualified Code(s): R41.82 - Altered mental status, unspecified [id number] kidney injury Qualifiers: Acute renal failure type: unspecified Chronic kidney disease stage: unspecified stage Qualified Code(s): N17.9 - Acute kidney failure, unspecified Disposition: Admitted As Inpatient Condition: Fair Referrals: Braden Garibay MD [Primary Care Provider] - Forms: ED Satisfaction Letter Time of Disposition: 00:24 General Adult HPI - General Chief complaint: ED Urogenital-Female Stated complaint: poss UTI Time Seen by Provider: 02/27/19 21:55 Source: family, EMS Mode of arrival: EMS Limitations: altered mental status Nursing Notes Reviewed: Yes Vital Signs Reviewed: Yes - History of Present Illness HPI Narrative: Patient is a 83-year-old female with a past medical history of atrial fibrillation, COPD, thyroid disease, Parkinson's and dementia presents the ED for evaluation of altered mental status. Family is at bedside and they state that over the past 3 days the patient has had decline in her mental status. They state that she is presenting as she usually does when she has a urinary tract infection and states that the shelter that she resides at performed a urinalysis which they state was positive however the reading for cultures to return to initiate treatment. They state that yesterday and the day before the patient was having hallucinations and seeing bugs crawling on the floor and she is only oriented to time and that today she has been more somnolent and unresponsive. They deny recent fevers, chills, nausea, vomiting, cough or congestion or diarrhea. Pain Scale: 0 - Related Data Home Medications Medication Instructions Recorded Confirmed Acetaminophen [Tylenol] 650 mg PO Q6HR PRN 09/14/15 02/27/19 Budesonide/Formoterol 160/4.5 2 puff IH BID 09/14/15 02/27/19 [Symbicort 160/4.5] Docusate [Colace] 100 mg PO BID 09/14/15 02/27/19 Folic Acid 1 mg PO DAILY 09/14/15 02/27/19 Magnesium Oxide [Magnesium] 400 mg PO DAILY 09/14/15 02/27/19 Omeprazole [PriLOSEC] 20 mg PO DAILY 09/14/15 02/27/19 Azelastine 0.1% Nasal [place] 2 spr NS DAILY 05/19/17 02/27/19 [Astelin] Carbidopa/Levodopa ER 50/200 1 tab PO BID 05/19/17 02/27/19 [Sinemet ER 50-200 Tab] Lactobacillus Acidophilus 1 cap PO DAILY 05/19/17 02/27/19 [Acidophilus] Quetiapine Fumarate [Seroquel] 12.5 mg PO HS 02/28/18 02/27/19 Mirtazapine 7.5 mg PO HS 04/25/18 02/27/19 Ferrous Sulfate [Iron] 325 mg PO DAILY 07/15/18 02/27/19 Levothyroxine Sodium [Euthyrox] 175 mcg PO DAILY 11/08/18 02/27/19 Cyanocobalamin (Vitamin B-12) 1,000 mcg PO DAILY 12/16/18 02/27/19 [Vitamin B12] Albuterol Sulfate [Proventil 2 puff IH Q4HR PRN 01/21/19 02/27/19 Inhaler] Calcitriol 1 mcg PO DAILY 01/21/19 02/27/19 Previous Rx's Medication Instructions Recorded Bisacodyl [Dulcolax] 10 mg RC DAILY PRN #30 supp.rect 04/04/18 Megestrol Acetate [Megace] 800 mg PO DAILY #30 bottle 04/04/18 Metoprolol [Lopressor] 50 mg PO BID #60 tablet 01/28/19 cephALEXin [Keflex] 500 mg PO TID #30 capsule 02/04/19 Allergies Allergy/AdvReac Type Severity Reaction Status Date / Time Amoxicillin Allergy unknown Verified 02/27/19 22:17 atropine Allergy unknown Verified 02/27/19 22:17 codeine Allergy See Verified 02/27/19 22:17 Comments Diphenoxylate Allergy unknown Verified 02/27/19 22:17 enalapril Allergy unknown Verified 02/27/19 22:17 esomeprazole Allergy Unknown Verified 02/27/19 22:17 gluten Allergy Diarrhea Verified 02/27/19 22:17 hydromorphone [Hydromorphone] Allergy unknown Verified 02/27/19 22:17 Iodinated Contrast- Oral and Allergy unknown Verified 02/27/19 22:17 IV Dye [Iodinated Contrast Media - IV Dye] nitrofurantoin Allergy unknown Verified 02/27/19 22:17 Penicillins Allergy unkown Verified 02/27/19 22:17 piroxicam Allergy unknown Verified 02/27/19 22:17 Strontium Allergy Rash Verified 02/27/19 22:17 Sulfa (Sulfonamide Allergy unknown Verified 02/27/19 22:17 Antibiotics) Limitations: ROS unobtainable due to patients medical condition Past Medical History - Past Medical History Medical history: Reports: atrial fibrillation, COPD, dementia, GERD, hypertension, osteoporosis, thyroid disease, venous stasis, other Surgical history: Reports: cataract, hysterectomy, thyroidectomy Psychiatric history: Reports: anxiety, depression WEIGHT CLERK history: Reports: no WEIGHT CLERK history - Social History Smoking Status: Never smoker Smokeless Tobacco Status: No Alcohol use: Reports: none Drug use: Reports: none Physical Exam - General Limitations: altered mental status General appearance: in no apparent distress - Head Head exam: atraumatic, normocephalic, normal inspection - Eye Eye exam: Present: normal appearance - ENT ENT exam: normal exam, normal oropharynx, mucous membranes dry - Neck Neck exam: Present: normal inspection, full ROM, trachea midline - Chest Chest inspection: Present: normal inspection, symmetric chest wall rise - Respiratory Respiratory exam: Absent: normal lung sounds bilaterally (dminished with poor inspiratory effort), respiratory distress, wheezes - Cardiovascular Cardiovascular exam: Present: regular rate, normal rhythm, normal heart sounds, +S1, +S2 - Abdominal Exam Abdominal exam: Present: soft, Non-Tender, tenderness, normal bowel sounds - Extremities Exam Extremities exam: Present: normal inspection, full ROM, normal capillary refill. Absent: tenderness, pedal edema - Back Exam Back exam: Present: normal inspection, full ROM. Absent: tenderness, CVA tenderness (R), CVA tenderness (L) - Neurological Exam Neurological exam: Present: alert. Absent: oriented X3 (AOx1) - Expanded Neurological Exam Speech: Present: fluid speech Motor strength - LUE: 3/5 Motor strength - RUE: 3/5 Coma Scale Eye Opening: To Voice Coma Scale Motor Response: Obeys Commands Coma Scale Verbal Response: Confused Coma Scale Total: 13 - Psychiatric Psychiatric exam: Present: normal affect, normal mood - Skin Skin exam: Present: warm, dry, intact, normal color Course Course Narrative: Patient undergo workup for altered mental status including looking for source of infection which I suspect is urinary tract given her history of similar presentation with UTI in the past. Due to her altered mental status also go under evaluation with head CT to evaluate for stroke. Patient family is at the bedside they state that she is a full code normally she is sitting up and talking. She is very somnolent on exam and she arouses to my voice and barely opens her eyes and states that she does not have any pain at this time. - Reevaluation(s) Reevaluation #1: Patient's lab work remarkable for anemia of 10.8 which appears to be chronic. She has no leukocytosis. Her lactate was normal however her urine was concerning for infection. I discussed the patient's prior organism or resistance with the pharmacist in the ED, Dr. Penn, and he recommended meropenem and Zyvox. Patient does have an amoxicillin allergy which was trig gered plan oriented meropenem however, it appears that she has received Zosyn in the past as well as meropenem. She does have elevation of her kidney function which appears to be above baseline and she also has an elevated d-dimer which is suspect is from patient's dehydration. Her blood pressure normalized with 1 L normal saline bolus. I ordered an additional 500 mL bolus due to her obvious si gns of dehydration on labs. She had an elevated troponin which I suspect is due to demand ischemia from dehydration. Her CAT scan was unremarkable. She is admitted to the hospitalist for further treatment of her UTI. Vital Signs Temperature 98.5 F 02/27/19 21:59 Pulse Rate 79 02/27/19 21:59 Respiratory Rate 16 02/27/19 21:59 Blood Pressure 87/62 02/27/19 21:59 O2 Sat by Pulse Oximetry 97 02/27/19 21:59 Temperature 98.5 F 02/27/19 21:59 Pulse Rate 63 02/28/19 00:00 Respiratory Rate 18 02/28/19 00:00 Blood Pressure 117/83 02/28/19 00:00 O2 Sat by Pulse Oximetry 100 02/28/19 00:00 Oxygen Delivery Oxygen Delivery Nasal Cannula Medical Decision Making - Medical Records Medical records reviewed: Yes I reviewed the patient's medical records. - Lab Data Lab results reviewed: Yes I reviewed the patient's lab results. Result diagrams: 02/27/19 22:30 02/27/19 22:30 Lab Results 02/27/19 02/27/19 02/27/19 Range/Units 22:30 22:30 22:36 WBC 5.4 (4.3-11.1) K/mcL RBC 3.47 L (3.82-4.97) M/mcL Hgb 10.8 L (11.5-15.4) g/dL Hct 34.4 L (35.3-44.9) % MCV 99.1 (83.0-100.0) fL MCH 31.1 (28.0-33.3) pg MCHC 31.4 L (31.6-35.5) g/dL RDW 14.7 H (11.5-14.5) % Plt Count 130 L (140-400) K/mcL MPV 12.5 H (9.4-12.4) fL Immature Gran % 2.6 (0-4) % Seg Neutrophils % 73.2 % Lymphocytes % 14.8 % Monocytes % 7.3 % Eosinophils % 1.5 % Basophils % 0.6 % Neutrophils # 3.9 (1.6-8.9) K/mcL Lymphocytes # 0.8 (0.6-4.6) K/mcL Monocytes # 0.4 (0.0-1.3) K/mcL Eosinophils # 0.1 (0.0-0.6) K/mcL Basophils # 0.0 (0.0-0.2) K/mcL VBG pH (7.32-7.42) pH Units VBG pCO2 (41-51) mmHg VBG pO2 (25-50) mmHg VBG HCO3 (21-27) mEq/L Sodium 139 (136-145) mEq/L Potassium 4.3 (3.5-5.1) mEq/L Chloride 105 (98-107) mEq/L Carbon Dioxide 22 L (23-29) mEq/L BUN 40 H (8-23) mg/dL Creatinine 1.37 H (0.60-1.20) mg/dL Est GFR ( Amer) 45 L (> 60) Est GFR (Non-Af Amer) 37 L (> 60) BUN/Creatinine Ratio 29 H (6-26) Glucose 93 (70-105) mg/dL Calculated Osmolality 297 (280-300) Lactic Acid 1.1 (0.5-2.2) mmol/L Calcium 10.4 H (8.6-10.3) mg/dL Phosphorus 3.8 (2.7-4.5) mg/dL Magnesium 2.4 (1.6-2.6) mg/dL Total Bilirubin 0.8 (0.3-1.0) mg/dL Direct Bilirubin 0.1 (0.0-0.2) mg/dL Indirect Bilirubin 0.7 (0.0-1.2) mg/dL AST 20 (13-39) Units/L ALT < 3 L (7-52) Units/L Alkaline Phosphatase 64 (34-104) Units/L Troponin I 0.04 H* (< 0.04) ng/mL Serum Total Protein 6.8 (6.4-8.9) g/dL Albumin 3.4 L (3.5-5.7) g/dL Globulin 3.4 (2.4-3.5) g/dL Albumin/Globulin Ratio 1.0 L (1.1-2.2) Urine Color (Yellow) Urine Clarity (Clear) Urine pH (5.0-8.0) pH Units Ur Specific [place] (1.010-1.025) Urine Protein (Neg-Trace) mg/dL Urine Glucose (UA) (Normal) mg/dL Urine Ketones (Negative) mg/dL Urine Blood (Negative) Urine Nitrite (Negative) Urine Bilirubin (Negative) Urine Urobilinogen (Normal) mg/dL Ur Leukocyte Esterase (Negative) Urine Microscopic RBC (0-3) per hpf Urine Microscopic WBC (0-3) per hpf Ur Squamous Epith Cells (None-Few) per lpf Urine Bacteria (None-Few) per hpf Hyaline Casts (None-Few) per lpf Ur Culture Indicated? (NO) 02/27/19 02/27/19 Range/Units 23:15 23:26 WBC (4.3-11.1) K/mcL RBC (3.82-4.97) M/mcL Hgb (11.5-15.4) g/dL Hct (35.3-44.9) % MCV (83.0-100.0) fL MCH (28.0-33.3) pg MCHC (31.6-35.5) g/dL RDW (11.5-14.5) % Plt Count (140-400) K/mcL MPV (9.4-12.4) fL Immature Gran % (0-4) % Seg Neutrophils % % Lymphocytes % % Monocytes % % Eosinophils % % Basophils % % Neutrophils # (1.6-8.9) K/mcL Lymphocytes # (0.6-4.6) K/mcL Monocytes # (0.0-1.3) K/mcL Eosinophils # (0.0-0.6) K/mcL Basophils # (0.0-0.2) K/mcL VBG pH 7.33 (7.32-7.42) pH Units VBG pCO2 52 H (41-51) mmHg VBG pO2 36 (25-50) mmHg VBG HCO3 28 H (21-27) mEq/L Sodium (136-145) mEq/L Potassium (3.5-5.1) mEq/L Chloride (98-107) mEq/L Carbon Dioxide (23-29) mEq/L BUN (8-23) mg/dL Creatinine (0.60-1.20) mg/dL Est GFR ( Amer) (> 60) Est GFR (Non-Af Amer) (> 60) BUN/Creatinine Ratio (6-26) Glucose (70-105) mg/dL Calculated Osmolality (280-300) Lactic Acid (0.5-2.2) mmol/L Calcium (8.6-10.3) mg/dL Phosphorus (2.7-4.5) mg/dL Magnesium (1.6-2.6) mg/dL Total Bilirubin (0.3-1.0) mg/dL Direct Bilirubin (0.0-0.2) mg/dL Indirect Bilirubin (0.0-1.2) mg/dL AST (13-39) Units/L ALT (7-52) Units/L Alkaline Phosphatase (34-104) Units/L Troponin I (< 0.04) ng/mL Serum Total Protein (6.4-8.9) g/dL Albumin (3.5-5.7) g/dL Globulin (2.4-3.5) g/dL Albumin/Globulin Ratio (1.1-2.2) Urine Color Yellow (Yellow) Urine Clarity Turbid A (Clear) Urine pH 6.5 (5.0-8.0) pH Units Ur Specific [place] 1.015 (1.010-1.025) Urine Protein 100 H (Neg-Trace) mg/dL Urine Glucose (UA) Normal (Normal) mg/dL Urine Ketones Negative (Negative) mg/dL Urine Blood Small H (Negative) Urine Nitrite Negative (Negative) Urine Bilirubin Negative (Negative) Urine Urobilinogen Normal (Normal) mg/dL Ur Leukocyte Esterase Large H (Negative) Urine Microscopic RBC 5-15 H (0-3) per hpf Urine Microscopic WBC TNTC H (0-3) per hpf Ur Squamous Epith Cells Moderate H (None-Few) per lpf Urine Bacteria Many H (None-Few) per hpf Hyaline Casts None Seen (None-Few) per lpf Ur Culture Indicated? YES A (NO) - Radiology Data Radiology results reviewed: Yes I reviewed the patient's radiology results. Chest X-Ray 02/27/19 22:29 IMPRESSION: Stable left basilar pleuroparenchymal disease, probably scarring. D/ / Barney Ruby MD / Barney Ruby MD Interpreting Provider: Barney Ruby MD Head CT 02/27/19 22:32 IMPRESSION: No acute intracranial abnormality. Moderate generalized atrophy and moderate chronic small vessel ischemic white matter disease. D/ / Jamari Ha MD / Jamari Ha MD Interpreting Provider: Jamari Ha MD - EKG Data EKG #1 EKG attestation: Yes I reviewed and interpreted this EKG. EKG results narrative: EKG done at 23:02 shows atrial fibrillation a rate of 63 bpm. Normal axis. Intervals within normal limits. No signs of iscehmia.
[2019-02-27 22:41] LABS: Basophils % 0.6 %; Eosinophils # 0.1 K/mcL (0.0-0.6); Eosinophils % 1.5 %; Hematocrit 34.4 % (35.3-44.9); Hemoglobin 10.8 g/dL (11.5-15.4); Immature Granulocytes % 2.6 % (0-4); Lymphocytes # 0.8 K/mcL (0.6-4.6); Lymphocytes % 14.8 %; Mean Corpuscular HGB Conc 31.4 g/dL (31.6-35.5); Mean Corpuscular Hemoglobin 31.1 pg (28.0-33.3); Mean Corpuscular Volume 99.1 fL (83.0-100.0); Mean Platelet Volume 12.5 fL (9.4-12.4); Monocytes # 0.4 K/mcL (0.0-1.3); Monocytes % 7.3 %; Neutrophils # 3.9 K/mcL (1.6-8.9); Platelet Count 130 K/mcL (140-400); Red Blood Count 3.47 M/mcL (3.82-4.97); Red Cell Distribution Width 14.7 % (11.5-14.5); Segmented Neutrophils % 73.2 %; White Blood Count 5.4 K/mcL (4.3-11.1)
[2019-02-27 23:20] LABS: Alanine Aminotransferase < 3 Units/L (7-52); Albumin 3.4 g/dL (3.5-5.7); Alkaline Phosphatase 64 Units/L (34-104); Aspartate Amino Transferase 20 Units/L (13-39); BUN/Creatinine Ratio 29 (6-26); Bilirubin,Direct 0.1 mg/dL (0.0-0.2); Bilirubin,Indirect 0.7 mg/dL (0.0-1.2); Bilirubin,Total 0.8 mg/dL (0.3-1.0); Blood Urea Nitrogen 40 mg/dL (8-23); Calcium 10.4 mg/dL (8.6-10.3); Chloride 105 mEq/L (98-107); Globulin 3.4 g/dL (2.4-3.5); Glucose 93 mg/dL (70-105); Magnesium 2.4 mg/dL (1.6-2.6); Osmolality,Calculated 297 (280-300); Phosphorous 3.8 mg/dL (2.7-4.5); Potassium 4.3 mEq/L (3.5-5.1); Sodium 139 mEq/L (136-145); Total Protein 6.8 g/dL (6.4-8.9); Troponin I 0.04 ng/mL (< 0.04); eGFR For African Americans 45 (> 60); eGFR For Non-African Americans 37 (> 60)
[2019-02-27 23:28] LABS: Carbon Dioxide 22 mEq/L (23-29)
[2019-02-27 23:28] LABS: VBG HCO3 28 mEq/L (21-27); VBG PCO2 52 mmHg (41-51); VBG PH 7.33 pH Units (7.32-7.42); VBG PO2 36 mmHg (25-50)
[2019-02-27 23:32] LABS: Bilirubin,Urine Negative (Negative); Blood,Urine Small (Negative); Clarity,Urine Turbid (Clear); Color,Urine Yellow (Yellow); Glucose,Urine (UA) Normal (Normal); Ketones,Urine Negative (Negative); Leukocyte Esterase,Urine Large (Negative); Nitrite,Urine Negative (Negative); PH,Urine 6.5 pH Units (5.0-8.0); Protein,Urine 100 mg/dL (Neg-Trace); Specific Gravity,Urine 1.015 (1.010-1.025); Urobilinogen,Urine Normal (Normal)
[2019-02-27 23:35] LABS: Bacteria,Urine Many per hpf (None-Few); Squamous Epithelial Cell,Urine Moderate per lpf (None-Few); WBC,Urine TNTC per hpf (0-3)
[2019-02-27 23:44] LABS: Hyaline Casts,Urine None Seen per lpf (None-Few)
[2019-02-28] MEDS ORDERED: Meropenem 500 MG in Water for inj. (sterile) 10 ML IVP STA (00:15)
[2019-02-28] MEDS ORDERED: 0.9 % Sodium Chloride 500 ML IVC ONE (00:31)
--- NOTE | 2019-02-28 01:11 | Emergency Department Note ---
Disposition Clinical Impression: Elevated troponin UTI (urinary tract infection) Qualifiers: Urinary tract infection type: acute cystitis Hematuria presence: without he maturia Qualified Code(s): N30.00 - Acute cystitis without hematuria Altered mental status Qualifiers: Altered mental status type: unspecified Qualified Code(s): R41.82 - Altered mental status, unspecified [id number] kidney injury Qualifiers: Acute renal failure type: unspecified Chronic kidney disease stage: unspecified stage Qualified Code(s): N17.9 - Acute kidney failure, unspecified Disposition: Admitted As Inpatient Condition: Fair Time of Disposition: 00:24 General Adult HPI - General Chief complaint: ED Urogenital-Female Stated complaint: poss UTI Time Seen by Provider: 02/27/19 21:55 Source: family, EMS Mode of arrival: EMS Limitations: altered mental status Nursing Notes Reviewed: Yes Vital Signs Reviewed: Yes - History of Present Illness Pain Scale: 0 - Related Data Home Medications Medication Instructions Recorded Confirmed Acetaminophen [Tylenol] 650 mg PO Q6HR PRN 09/14/15 02/27/19 Budesonide/Formoterol 160/4.5 2 puff IH BID 09/14/15 02/27/19 [Symbicort 160/4.5] Docusate [Colace] 100 mg PO BID 09/14/15 02/27/19 Folic Acid 1 mg PO DAILY 09/14/15 02/27/19 Magnesium Oxide [Magnesium] 400 mg PO DAILY 09/14/15 02/27/19 Omeprazole [PriLOSEC] 20 mg PO DAILY 09/14/15 02/27/19 Azelastine 0.1% Nasal [place] 2 spr NS DAILY 05/19/17 02/27/19 [Astelin] Carbidopa/Levodopa ER 50/200 1 tab PO BID 05/19/17 02/27/19 [Sinemet ER 50-200 Tab] Lactobacillus Acidophilus 1 cap PO DAILY 05/19/17 02/27/19 [Acidophilus] Quetiapine Fumarate [Seroquel] 12.5 mg PO HS 02/28/18 02/27/19 Mirtazapine 7.5 mg PO HS 04/25/18 02/27/19 Ferrous Sulfate [Iron] 325 mg PO DAILY 07/15/18 02/27/19 Levothyroxine Sodium [Euthyrox] 175 mcg PO DAILY 11/08/18 02/27/19 Cyanocobalamin (Vitamin B-12) 1,000 mcg PO DAILY 12/16/18 02/27/19 [Vitamin B12] Albuterol Sulfate [Proventil 2 puff IH Q4HR PRN 01/21/19 02/27/19 Inhaler] Calcitriol 1 mcg PO DAILY 01/21/19 02/27/19 Previous Rx's Medication Instructions Recorded Bisacodyl [Dulcolax] 10 mg RC DAILY PRN #30 supp.rect 04/04/18 Megestrol Acetate [Megace] 800 mg PO DAILY #30 bottle 04/04/18 Metoprolol [Lopressor] 50 mg PO BID #60 tablet 01/28/19 cephALEXin [Keflex] 500 mg PO TID #30 capsule 02/04/19 Allergies Allergy/AdvReac Type Severity Reaction Status Date / Time Amoxicillin Allergy unknown Verified 02/27/19 22:17 atropine Allergy unknown Verified 02/27/19 22:17 codeine Allergy See Verified 02/27/19 22:17 Comments Diphenoxylate Allergy unknown Verified 02/27/19 22:17 enalapril Allergy unknown Verified 02/27/19 22:17 esomeprazole Allergy Unknown Verified 02/27/19 22:17 gluten Allergy Diarrhea Verified 02/27/19 22:17 hydromorphone [Hydromorphone] Allergy unknown Verified 02/27/19 22:17 Iodinated Contrast- Oral and Allergy unknown Verified 02/27/19 22:17 IV Dye [Iodinated Contrast Media - IV Dye] nitrofurantoin Allergy unknown Verified 02/27/19 22:17 Penicillins Allergy Hives Verified 02/28/19 00:44 piroxicam Allergy unknown Verified 02/27/19 22:17 Strontium Allergy Rash Verified 02/27/19 22:17 Sulfa (Sulfonamide Allergy unknown Verified 02/27/19 22:17 Antibiotics) Past Medical History - Past Medical History Medical history: Reports: atrial fibrillation, COPD, dementia, GERD, hypertension, osteoporosis, thyroid disease, venous stasis, other Surgical history: Reports: cataract, hysterectomy, thyroidectomy Psychiatric history: Reports: anxiety, depression UM SPECIALIST history: Reports: no UM SPECIALIST history - Social History Smoking Status: Never smoker Smokeless Tobacco Status: No Alcohol use: Reports: none Drug use: Reports: none Physical Exam - General Limitations: altered mental status General appearance: in no apparent distress Course Vital Signs Temperature 98.5 F 02/27/19 21:59 Pulse Rate 79 02/27/19 21:59 Respiratory Rate 16 02/27/19 21:59 Blood Pressure 87/62 02/27/19 21:59 O2 Sat by Pulse Oximetry 97 02/27/19 21:59 Temperature 98.5 F 02/27/19 21:59 Pulse Rate 63 02/28/19 00:00 Respiratory Rate 18 02/28/19 00:00 Blood Pressure 117/83 02/28/19 00:00 O2 Sat by Pulse Oximetry 100 02/28/19 00:00 Oxygen Delivery Oxygen Delivery Nasal Cannula Medical Decision Making - Medical Records Medical records reviewed: Yes I reviewed the patient's medical records. - Lab Data Lab results reviewed: Yes I reviewed the patient's lab results. Result diagrams: 02/27/19 22:30 02/27/19 22:30 Lab Results 02/27/19 02/27/19 02/27/19 Range/Units 22:30 22:30 22:36 WBC 5.4 (4.3-11.1) K/mcL RBC 3.47 L (3.82-4.97) M/mcL Hgb 10.8 L (11.5-15.4) g/dL Hct 34.4 L (35.3-44.9) % MCV 99.1 (83.0-100.0) fL MCH 31.1 (28.0-33.3) pg MCHC 31.4 L (31.6-35.5) g/dL RDW 14.7 H (11.5-14.5) % Plt Count 130 L (140-400) K/mcL MPV 12.5 H (9.4-12.4) fL Immature Gran % 2.6 (0-4) % Seg Neutrophils % 73.2 % Lymphocytes % 14.8 % Monocytes % 7.3 % Eosinophils % 1.5 % Basophils % 0.6 % Neutrophils # 3.9 (1.6-8.9) K/mcL Lymphocytes # 0.8 (0.6-4.6) K/mcL Monocytes # 0.4 (0.0-1.3) K/mcL Eosinophils # 0.1 (0.0-0.6) K/mcL Basophils # 0.0 (0.0-0.2) K/mcL VBG pH (7.32-7.42) pH Units VBG pCO2 (41-51) mmHg VBG pO2 (25-50) mmHg VBG HCO3 (21-27) mEq/L Sodium 139 (136-145) mEq/L Potassium 4.3 (3.5-5.1) mEq/L Chloride 105 (98-107) mEq/L Carbon Dioxide 22 L (23-29) mEq/L BUN 40 H (8-23) mg/dL Creatinine 1.37 H (0.60-1.20) mg/dL Est GFR ( Amer) 45 L (> 60) Est GFR (Non-Af Amer) 37 L (> 60) BUN/Creatinine Ratio 29 H (6-26) Glucose 93 (70-105) mg/dL Calculated Osmolality 297 (280-300) Lactic Acid 1.1 (0.5-2.2) mmol/L Calcium 10.4 H (8.6-10.3) mg/dL Phosphorus 3.8 (2.7-4.5) mg/dL Magnesium 2.4 (1.6-2.6) mg/dL Total Bilirubin 0.8 (0.3-1.0) mg/dL Direct Bilirubin 0.1 (0.0-0.2) mg/dL Indirect Bilirubin 0.7 (0.0-1.2) mg/dL AST 20 (13-39) Units/L ALT < 3 L (7-52) Units/L Alkaline Phosphatase 64 (34-104) Units/L Troponin I 0.04 H* (< 0.04) ng/mL Serum Total Protein 6.8 (6.4-8.9) g/dL Albumin 3.4 L (3.5-5.7) g/dL Globulin 3.4 (2.4-3.5) g/dL Albumin/Globulin Ratio 1.0 L (1.1-2.2) Urine Color (Yellow) Urine Clarity (Clear) Urine pH (5.0-8.0) pH Units Ur Specific [place] (1.010-1.025) Urine Protein (Neg-Trace) mg/dL Urine Glucose (UA) (Normal) mg/dL Urine Ketones (Negative) mg/dL Urine Blood (Negative) Urine Nitrite (Negative) Urine Bilirubin (Negative) Urine Urobilinogen (Normal) mg/dL Ur Leukocyte Esterase (Negative) Urine Microscopic RBC (0-3) per hpf Urine Microscopic WBC (0-3) per hpf Ur Squamous Epith Cells (None-Few) per lpf Urine Bacteria (None-Few) per hpf Hyaline Casts (None-Few) per lpf Ur Culture Indicated? (NO) 02/27/19 02/27/19 Range/Units 23:15 23:26 WBC (4.3-11.1) K/mcL RBC (3.82-4.97) M/mcL Hgb (11.5-15.4) g/dL Hct (35.3-44.9) % MCV (83.0-100.0) fL MCH (28.0-33.3) pg MCHC (31.6-35.5) g/dL RDW (11.5-14.5) % Plt Count (140-400) K/mcL MPV (9.4-12.4) fL Immature Gran % (0-4) % Seg Neutrophils % % Lymphocytes % % Monocytes % % Eosinophils % % Basophils % % Neutrophils # (1.6-8.9) K/mcL Lymphocytes # (0.6-4.6) K/mcL Monocytes # (0.0-1.3) K/mcL Eosinophils # (0.0-0.6) K/mcL Basophils # (0.0-0.2) K/mcL VBG pH 7.33 (7.32-7.42) pH Units VBG pCO2 52 H (41-51) mmHg VBG pO2 36 (25-50) mmHg VBG HCO3 28 H (21-27) mEq/L Sodium (136-145) mEq/L Potassium (3.5-5.1) mEq/L Chloride (98-107) mEq/L Carbon Dioxide (23-29) mEq/L BUN (8-23) mg/dL Creatinine (0.60-1.20) mg/dL Est GFR ( Amer) (> 60) Est GFR (Non-Af Amer) (> 60) BUN/Creatinine Ratio (6-26) Glucose (70-105) mg/dL Calculated Osmolality (280-300) Lactic Acid (0.5-2.2) mmol/L Calcium (8.6-10.3) mg/dL Phosphorus (2.7-4.5) mg/dL Magnesium (1.6-2.6) mg/dL Total Bilirubin (0.3-1.0) mg/dL Direct Bilirubin (0.0-0.2) mg/dL Indirect Bilirubin (0.0-1.2) mg/dL AST (13-39) Units/L ALT (7-52) Units/L Alkaline Phosphatase (34-104) Units/L Troponin I (< 0.04) ng/mL Serum Total Protein (6.4-8.9) g/dL Albumin (3.5-5.7) g/dL Globulin (2.4-3.5) g/dL Albumin/Globulin Ratio (1.1-2.2) Urine Color Yellow (Yellow) Urine Clarity Turbid A (Clear) Urine pH 6.5 (5.0-8.0) pH Units Ur Specific [place] 1.015 (1.010-1.025) Urine Protein 100 H (Neg-Trace) mg/dL Urine Glucose (UA) Normal (Normal) mg/dL Urine Ketones Negative (Negative) mg/dL Urine Blood Small H (Negative) Urine Nitrite Negative (Negative) Urine Bilirubin Negative (Negative) Urine Urobilinogen Normal (Normal) mg/dL Ur Leukocyte Esterase Large H (Negative) Urine Microscopic RBC 5-15 H (0-3) per hpf Urine Microscopic WBC TNTC H (0-3) per hpf Ur Squamous Epith Cells Moderate H (None-Few) per lpf Urine Bacteria Many H (None-Few) per hpf Hyaline Casts None Seen (None-Few) per lpf Ur Culture Indicated? YES A (NO) - Radiology Data Radiology results reviewed: Yes I reviewed the patient's radiology results. Chest X-Ray 02/27/19 22:29 IMPRESSION: Stable left basilar pleuroparenchymal disease, probably scarring. D/ / Barney Ruby MD / Barney Ruby MD Interpreting Provider: Barney Ruby MD Head CT 02/27/19 22:32 IMPRESSION: No acute intracranial abnormality. Moderate generalized atrophy and moderate chronic small vessel ischemic white matter disease. D/ / Jamari Ha MD / Jamari Ha MD Interpreting Provider: Jamari Ha MD - EKG Data EKG #1 EKG attestation: Yes I reviewed and interpreted this EKG. EKG results narrative: EKG shows atrial fibrillation with ventricular rate of 63. No significant ST segment elevation or depression. No significant change from prior EKG dated 02/04/2019. Critical Care Time Critical Care Time: Yes Total Critical Care Time: 45 Attestation: Critical care performed: Time is exclusive of separately billable procedures. Time includes: direct patient care, patient reassessment, coordination of patient care, interpretation of data (laboratory data, radiology data, and respiratory data), review of patient's medical records, medical consultation and documentation of patient care. Procedures included in critical care time: Procedures excluded from critical care time: Attestation Statement - Attestation Attestation: I, Castillo Navarrete MD, personally evaluated this patient and discussed their management with the resident physician. I reviewed the resident's note and agree with the documented findings, medical decision making, and plan of care. I reviewed the residents documentation and agree with the residents assessment and plan of care. I have personally had face to face time with the patient. I personally supervised and was present for the robbins/critical portions of the following procedures completed by the resident: EKG interpretation. 83-year-old female presents to the emergency department by EMS from a local correction for evaluation of urinary tract infection. EMS reports that the correction obtained a urine on her and she was diagnosed with the UTI but they were waiting on the culture reports results to treat the UTI. Family requested she be sent here for evaluation tonight because they did not want to wait for culture results. Family arrived and does report that patient has a decreased mental status from her baseline. Patient only responds minimally to verbal stimuli and follows a few basic commands. Unable to answer questions or provide history. On examination patient is a well-developed well-nourished elderly female in no acute distress. She is sleeping and responds minimally to loud verbal stimuli. There is no cyanosis or diaphoresis. Breath sounds are clear and equal bilaterally. Heart irregularly irregular with a normal rate. Abdomen is soft with normal bowel sounds. No obvious tenderness. EKG shows atrial fibrillation with ventricular rate of 63. No significant ST segment elevation or depression. No significant change from prior EKG dated 02/04/2019. Head CT negative. Chest x-ray shows some left basilar scarring. Labs reviewed. Blood cultures obtained. IV antibiotics initiated. The hospitalist, Dr. Bass, was consulted and accepted admission of the patient .
[2019-02-28] MEDS ORDERED: Naloxone 0.4 MG/ML INJ IVP PRN (01:33)
[2019-02-28] MEDS ORDERED: *HR* HYDROcodone/Acet 5/325 mg TABLET PO PRN (01:33)
[2019-02-28] MEDS ORDERED: Acetaminophen 325 MG TABLET PO PRN (01:33)
--- NOTE | 2019-02-28 01:45 | Internal Med History&Physical ---
Date of Encounter: 02/28/19 Time of Encounter: 01:45 Internal Medicine - H&P: HPI Chief complaint: Change of mental status History of present illness: Ms. Griffin is a 83 year old female with past medical history of atrial fibrillation, COPD, dementia, GERD, hypertension, osteoporosis, thyroid disease, venous stasis, hiatal hernia, parkinsons and celiac disease who presented to the ER with 3 day history of change of mental status and was sent from snf due to a concern of possible urinary tract infection. The patient records indicated that she have history of urinary tract infection and she was treated in the past with Zyvox and meropenem. The patient was evaluated by the ER staff and urine analysis was suggestive of UTI. Patient was started on empiric antibiotic based on her prior resulted urine culture and was admitted for further evaluation and management. Past Med Surg Social Fam HX - Past Medical History Medical history: atrial fibrillation, COPD, dementia, GERD, hypertension, osteoporosis, thyroid disease, venous stasis, other Additional medical history: hiatal hernia, parkinsons, celiac disease Psychiatric history: anxiety, depression - Past Surgical History Surgical History: cataract, hysterectomy, thyroidectomy Additional surgical history: codi leg surgery for varicose veins - Social History Smoking Status: Never smoker Smokeless Tobacco Status: No Alcohol use: none Drug use: none - Family History Father Living Status: Hx Family Cardiac Disorders: Yes Mother Living Status: Hx Family Cardiac Disorders: Yes Internal Medicine - H&P: Meds Acetaminophen [Tylenol] 650 mg PO Q6HR PRN 09/14/15 [History] Budesonide/Formoterol 160/4.5 [Symbicort 160/4.5] 2 puff IH BID 09/14/15 [History] Docusate [Colace] 100 mg PO BID 09/14/15 [History] Folic Acid 1 mg PO DAILY 09/14/15 [History] Magnesium Oxide [Magnesium] 400 mg PO DAILY 09/14/15 [History] Omeprazole [PriLOSEC] 20 mg PO DAILY 09/14/15 [History] Azelastine 0.1% Nasal [place] [Astelin] 2 spr NS DAILY 05/19/17 [History] Carbidopa/Levodopa ER 50/200 [Sinemet ER 50-200 Tab] 1 tab PO BID 05/19/17 [History] Lactobacillus Acidophilus [Acidophilus] 1 cap PO DAILY 05/19/17 [History] Quetiapine Fumarate [Seroquel] 12.5 mg PO HS 02/28/18 [History] Bisacodyl [Dulcolax] 10 mg RC DAILY PRN #30 supp.rect 04/04/18 [Rx] Megestrol Acetate [Megace] 800 mg PO DAILY #30 bottle 04/04/18 [Rx] Mirtazapine 7.5 mg PO HS 04/25/18 [History] Ferrous Sulfate [Iron] 325 mg PO DAILY 07/15/18 [History] Levothyroxine Sodium [Euthyrox] 175 mcg PO DAILY 11/08/18 [History] Cyanocobalamin (Vitamin B-12) [Vitamin B12] 1,000 mcg PO DAILY 12/16/18 [History] Albuterol Sulfate [Proventil Inhaler] 2 puff IH Q4HR PRN 01/21/19 [History] Calcitriol 1 mcg PO DAILY 01/21/19 [History] Metoprolol [Lopressor] 50 mg PO BID #60 tablet 01/28/19 [Rx] cephALEXin [Keflex] 500 mg PO TID #30 capsule 02/04/19 [Rx] Allergy/AdvReac Type Severity Reaction Status Date / Time Amoxicillin Allergy unknown Verified 02/27/19 22:17 atropine Allergy unknown Verified 02/27/19 22:17 codeine Allergy See Verified 02/27/19 22:17 Comments Diphenoxylate Allergy unknown Verified 02/27/19 22:17 enalapril Allergy unknown Verified 02/27/19 22:17 esomeprazole Allergy Unknown Verified 02/27/19 22:17 gluten Allergy Diarrhea Verified 02/27/19 22:17 hydromorphone [Hydromorphone] Allergy unknown Verified 02/27/19 22:17 Iodinated Contrast- Oral and Allergy unknown Verified 02/27/19 22:17 IV Dye [Iodinated Contrast Media - IV Dye] nitrofurantoin Allergy unknown Verified 02/27/19 22:17 Penicillins Allergy Hives Verified 02/28/19 00:44 piroxicam Allergy unknown Verified 02/27/19 22:17 Strontium Allergy Rash Verified 02/27/19 22:17 Sulfa (Sulfonamide Allergy unknown Verified 02/27/19 22:17 Antibiotics) ROS unobtainable: due to mental status - Constitutional Vitals: Temp Pulse Resp BP Pulse Ox 98.5 F 58 18 102/61 97 02/27/19 21:59 02/28/19 01:00 02/28/19 01:00 02/28/19 01:00 02/28/19 01:00 General appearance: Present: A&O X 0 Exam: ` - Head Head exam: Present: atraumatic, normocephalic - Neck Neck exam general surgery: Present: supple, trachea midline. Absent: lymphadenopathy - Respiratory Respiratory exam: Present: CTAB. Absent: accessory muscle use, rales, rhonchi, wheezes - Cardiovascular Cardiovascular exam: Present: RRR, +S1, +S2. Absent: diastolic murmur, gallop, rubs, systolic murmur - GI/Abdominal GI/Abdominal exam: Present: normal bowel sounds, soft, no peritoneal signs. Absent: distended, tenderness - Extremities Exam Extremities exam: Present: warm, radial pulses palpable and symmetrical. Absent: calf tenderness, cyanotic, pedal edema Internal Med - H&P Results - Labs CBC & Chem 7: 02/28/19 04:09 02/28/19 04:09 Labs: Short CBC 02/27/19 Range/Units 22:30 WBC 5.4 (4.3-11.1) K/mcL Hgb 10.8 L (11.5-15.4) g/dL Hct 34.4 L (35.3-44.9) % Plt Count 130 L (140-400) K/mcL Neutrophils # 3.9 (1.6-8.9) K/mcL BMP 02/27/19 22:30 Sodium 139 Potassium 4.3 Chloride 105 Carbon Dioxide 22 L BUN 40 H Creatinine 1.37 H Glucose 93 Calcium 10.4 H Cardiac Enzymes 02/27/19 Range/Units 22:30 Troponin I 0.04 H* (< 0.04) ng/mL Liver Function 02/27/19 Range/Units 22:30 Total Bilirubin 0.8 (0.3-1.0) mg/dL Direct Bilirubin 0.1 (0.0-0.2) mg/dL AST 20 (13-39) Units/L ALT < 3 L (7-52) Units/L Alkaline Phosphatase 64 (34-104) Units/L Albumin 3.4 L (3.5-5.7) g/dL Urine 02/27/19 Range/Units 23:15 Urine Color Yellow (Yellow) Urine Clarity Turbid A (Clear) Urine pH 6.5 (5.0-8.0) pH Units Ur Specific [place] 1.015 (1.010-1.025) Urine Protein 100 H (Neg-Trace) mg/dL Urine Glucose (UA) Normal (Normal) mg/dL - ABG Interpretation ABG results: 02/27/19 23:26 VBG pH 7.33 VBG pCO2 52 H VBG pO2 36 VBG HCO3 28 H - Impressions ITS Impressions Chest X-Ray 02/27/19 22:29 IMPRESSION: Stable left basilar pleuroparenchymal disease, probably scarring. D/ / Barney Ruby MD / Barney Ruby MD Interpreting Provider: Barney Ruby MD Head CT 02/27/19 22:32 IMPRESSION: No acute intracranial abnormality. Moderate generalized atrophy and moderate chronic small vessel ischemic white matter disease. D/ / Jamari Ha MD / Jamari Ha MD Interpreting Provider: Jamari Ha MD - Assessment and Plan (1) Change in mental status Current Visit: Yes Status: Acute Assessment and plan: Most likely secondary to underlying infectious process in the setting of urinary tract infection. The patient presented with similar complain during her prior admission due to urinary tract infection. Qualifiers: Qualified Code(s): R41.82 - Altered mental status, unspecified (2) Complicated UTI (urinary tract infection) Current Visit: No Status: Ruled-out Assessment and plan: The patient records indicated that she have history of urinary tract infection and she was treated in the past with Zyvox and meropenem. The patient was evaluated by the ER staff and urine analysis was suggestive of UTI. Patient was started on empiric antibiotic based on her prior resulted urine culture. (3) Anemia Current Visit: No Status: Acute Assessment and plan: Hemoglobin is stable, will continue to monitor H&H and transfuse for hemoglobin less than 7 Qualifiers: Anemia type: iron deficiency Qualified Code(s): D50.8 - Other iron deficiency anemias (4) Depression Current Visit: No Status: Acute Assessment and plan: We will cont.home meds. Qualifiers: Depression Type: major depressive disorder Major depression recurrence: recurrent Active/Remission status: in partial remission Qualified Code(s): F33.41 - Major depressive disorder, recurrent, in partial remission (5) COPD (chronic obstructive pulmonary disease) Current Visit: No Status: Chronic Assessment and plan: We will start the patient on when necessary DuoNeb Qualifiers: COPD type: emphysema Emphysema type: unspecified Qualified Code(s): J43.9 - Emphysema, unspecified (6) Chronic kidney disease Current Visit: No Status: Chronic Assessment and plan: Cr is above her baseline. most likely 2/2 volume deplet Qualifiers: Chronic kidney disease stage: stage 3 (moderate) Qualified Code(s): N18.3 - Chronic kidney disease, stage 3 (moderate) (7) GERD (gastroesophageal reflux disease) Current Visit: No Status: Chronic Assessment and plan: We will continue home proton pump inhibitor Qualifiers: Esophagitis presence: esophagitis presence not specified Qualified Code(s): K21.9 - Gastro-esophageal reflux disease without esophagitis (8) Hypoparathyroidism Current Visit: No Status: Chronic Qualifiers: Hypoparathyroidism type: other hypoparathyroidism Qualified Code(s): E20.8 - Other hypoparathyroidism (9) Hypothyroidism Current Visit: No Status: Chronic Assessment and plan: We will continue home thyroxine Qualifiers: Hypothyroidism type: postoperative Qualified Code(s): E89.0 - Postprocedural hypothyroidism (10) Parkinson disease Current Visit: No Status: Chronic (11) Protein calorie malnutrition Current Visit: No Status: Chronic Qualifiers: Protein-calorie malnutrition severity: unspecified severity Qualified Code(s): E46 - Unspecified protein-calorie malnutrition (12) Hypercalcemia Current Visit: No Status: Resolved Assessment and plan: 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 Patient appears to appear to be on the dry side, we will cont. IV hydration with isotonic saline. continue to monitor level. (13) DVT prophylaxis Current Visit: No Status: Acute - Time Spent With Patient Total time spent is greater than 50% in coordination of care (as documented) at patient's floor/unit and/or counseling patient:
[2019-02-28] MEDS: 0.9 % Sodium Chloride 1,000 ML IVC SCH ×2 (04:08→14:31)
[2019-02-28 04:26] LABS: Basophils % 0.5 %; Eosinophils # 0.1 K/mcL (0.0-0.6); Eosinophils % 1.2 %; Hematocrit 33.8 % (35.3-44.9); Hemoglobin 10.4 g/dL (11.5-15.4); Immature Granulocytes % 2.8 % (0-4); Lymphocytes % 16.6 %; Mean Corpuscular HGB Conc 30.8 g/dL (31.6-35.5); Mean Corpuscular Hemoglobin 31.3 pg (28.0-33.3); Mean Corpuscular Volume 101.8 fL (83.0-100.0); Mean Platelet Volume 12.5 fL (9.4-12.4); Monocytes # 0.4 K/mcL (0.0-1.3); Monocytes % 7.5 %; Neutrophils # 4.1 K/mcL (1.6-8.9); Platelet Count 120 K/mcL (140-400); Red Blood Count 3.32 M/mcL (3.82-4.97); Red Cell Distribution Width 14.6 % (11.5-14.5); Segmented Neutrophils % 71.4 %; White Blood Count 5.7 K/mcL (4.3-11.1)
[2019-02-28 04:35] LABS: INR 1.1; Prothrombin Time 12.4 Seconds (9.4-12.1)
[2019-02-28 04:56] LABS: Alanine Aminotransferase < 3 Units/L (7-52); Albumin 3.3 g/dL (3.5-5.7); Albumin/Globulin Ratio 1.2 (1.1-2.2); Alkaline Phosphatase 59 Units/L (34-104); Aspartate Amino Transferase 19 Units/L (13-39); BUN/Creatinine Ratio 27 (6-26); Bilirubin,Total 0.8 mg/dL (0.3-1.0); Blood Urea Nitrogen 38 mg/dL (8-23); Calcium 9.3 mg/dL (8.6-10.3); Carbon Dioxide 22 mEq/L (23-29); Chloride 110 mEq/L (98-107); Chol/HDL Ratio 4.9 (0-4.9); Cholesterol 122 mg/dL (< 200); Globulin 2.8 g/dL (2.4-3.5); Glucose 82 mg/dL (70-105); HDL Cholesterol 25 mg/dL (40-59); LDL Cholesterol,Calculated 72 mg/dL (0-99); Magnesium 2.2 mg/dL (1.6-2.6); Osmolality,Calculated 298 (280-300); Phosphorous 3.4 mg/dL (2.7-4.5); Potassium 4.2 mEq/L (3.5-5.1); Sodium 140 mEq/L (136-145); Total Protein 6.1 g/dL (6.4-8.9); Triglycerides 126 mg/dL (< 150); eGFR For African Americans 43 (> 60); eGFR For Non-African Americans 35 (> 60)
--- NOTE | 2019-02-28 14:18 | Event Note ---
Date of Encounter: 02/28/19 Time of Encounter: 10:15 Patient was seen and examined. Here with metabolic encephalopathy due to UTI. Comes from a long-term. On zyvox/meropenem due to previous MDR cultures for UTI. f/u on urine cultures. Has baseline dementia from what I understand. No family is around. Need to establish baseline mental status. Decrease IV fluids rate to 75 cc/hr.
[2019-02-28] MEDS: Meropenem 500 MG in Water for inj. (sterile) 10 ML IVP SCH (14:27)
[2019-02-28 15:13] LABS: Bacteria,Urine Few per hpf (None-Few); Squamous Epithelial Cell,Urine Many per lpf (None-Few); WBC,Urine TNTC per hpf (0-3)
[2019-02-28 15:41] LABS: Bilirubin,Urine Negative (Negative); Blood,Urine Moderate (Negative); Clarity,Urine Turbid (Clear); Color,Urine Yellow (Yellow); Glucose,Urine (UA) Normal (Normal); Ketones,Urine Negative (Negative); Leukocyte Esterase,Urine Large (Negative); Nitrite,Urine Negative (Negative); Protein,Urine 30 mg/dL (Neg-Trace); Specific Gravity,Urine 1.011 (1.010-1.025); Urobilinogen,Urine Normal (Normal)
[2019-02-28] MEDS ORDERED: Carbidopa/Levodopa ER 50/200 TABLET PO SCH (21:00)
[2019-02-28] MEDS ORDERED: MIRTAZAPINE 7.5 MG PO SCH (21:00)
[2019-02-28] MEDS: Budesonide/Formoterol 160/4.5 1 PUFF INH IH SCH (21:47)
[2019-03-01] MEDS: Meropenem 500 MG in Water for inj. (sterile) 10 ML IVP SCH ×3 (00:04→22:07)
--- NOTE | 2019-03-01 00:25 | Electrocardiograph Report ---
[facility] [employer] Test Date: 2019-02-27 Pat Name: Irma Griffin Department: EXAM8 Room: [id number] Gender: F Qualification Engineer: : [id number] Requested By: Matthew Brown Order Number: [id number] Reading MD: Nazia De La Rosa Measurements Intervals [place] Rate: 63 P: [place]: QRS: 22 QRSD: 92 T: 28 QT: 414 QTc: 421 Interpretive Statements Atrial fibrillation Abnormal R-wave progression, early transition Electronically Signed On 03-01-2019 0:23:08 EDT by Nazia De La Rosa
[2019-03-01] MEDS: *HR* Heparin 5,000 UNIT/ML VIAL SQ SCH ×3 (06:08→22:07)
[2019-03-01] MEDS: 0.9 % Sodium Chloride 1,000 ML IVC SCH ×2 (07:00→09:05)
[2019-03-01] MEDS: Budesonide/Formoterol 160/4.5 1 PUFF INH IH SCH ×2 (07:39→20:23)
[2019-03-01 07:53] LABS: Hematocrit 35.6 % (35.3-44.9); Mean Corpuscular Volume 103.2 fL (83.0-100.0); Red Blood Count 3.45 M/mcL (3.82-4.97); Red Cell Distribution Width 14.7 % (11.5-14.5)
[2019-03-01 07:56] LABS: Basophils % 0.6 %; Eosinophils # 0.1 K/mcL (0.0-0.6); Eosinophils % 1.3 %; Hemoglobin 10.7 g/dL (11.5-15.4); Immature Granulocytes % 2.5 % (0-4); Immature Platelets 14.4 % (1.1-6.1); Lymphocytes # 0.8 K/mcL (0.6-4.6); Lymphocytes % 15.6 %; Mean Corpuscular HGB Conc 30.1 g/dL (31.6-35.5); Monocytes # 0.3 K/mcL (0.0-1.3); Monocytes % 5.9 %; Neutrophils # 3.9 K/mcL (1.6-8.9); Platelet Count 113 K/mcL (140-400); Segmented Neutrophils % 74.1 %; White Blood Count 5.3 K/mcL (4.3-11.1)
[2019-03-01 08:07] LABS: Calcium 8.8 mg/dL (8.6-10.3); Magnesium 1.9 mg/dL (1.6-2.6); Potassium 3.9 mEq/L (3.5-5.1)
--- NOTE | 2019-03-01 09:40 | Internal Med Progress Note ---
Hospitalist Progress Note - Encounter Date of Encounter: 03/01/19 Time of Encounter: 09:38 - Subjective Interval History: Patient was seen and examined. No acute events. Mental status improving. On chronic O2. Here with metabolic encephalopathy due to UTI. [facility] On zyvox/meropenem due to previous MDR cultures for UTI. f/u on urine cultures. Has baseline dementia - Exam Vitals: Temp Pulse Resp BP Pulse Ox 98.1 F 82 12 123/104 98 03/01/19 08:00 03/01/19 08:00 03/01/19 08:00 03/01/19 08:00 03/01/19 08:00 Exam: `GEN: NAD CVS: RRR. S1, S2, No m/r/g RESP: CTAB ABD: Soft, NT, ND, +BS EXT: No edema. 2+ DP. No rashes NEURO: Nonfocal - Assessment and Plan (1) Metabolic encephalopathy Current Visit: No Status: Acute Assessment and Plan: Treat UTI as below. Has baseline dementia. Was under the impresiion that she is nonverbal yesterday but she obviously is verbal. she is much more awake today. She is A/Ox1. she knows her self and she knows her birthdate but not alert to time or year or place. Will continue to monitor. This may be her baseline. (2) Complicated UTI (urinary tract infection) Current Visit: No Status: Ruled-out Assessment and Plan: c/w Zyvox/meropenem due to previous MDR cultures for UTI. f/u on urine cultures. (3) Hypercalcemia Current Visit: No Status: Acute Assessment and Plan: Resolved with IV fluids (4) Hypothyroidism Current Visit: No Status: Chronic Assessment and Plan: continue home thyroxine (5) COPD (chronic obstructive pulmonary disease) Current Visit: No Status: Chronic Assessment and Plan: c/w previous inhalers. (6) Protein calorie malnutrition Current Visit: No Status: Chronic Assessment and Plan: dietary to see (7) Depression Current Visit: No Status: Acute Assessment and Plan: Stop IV fluids. Had IV fluids since admission. Kidney numbers at baseline. (8) Parkinson disease Current Visit: No Status: Chronic Assessment and Plan: c/w home meds (9) GERD (gastroesophageal reflux disease) Current Visit: No Status: Chronic Assessment and Plan: c/w home meds (10) Hypoparathyroidism Current Visit: No Status: Chronic Assessment and Plan: c/w home meds (11) Chronic kidney disease Current Visit: No Status: Chronic Assessment and Plan: stable. (12) Anemia Current Visit: No Status: Acute Assessment and Plan: stable (13) DVT prophylaxis Current Visit: No Status: Acute Assessment and Plan: heparin SQ - Time Spent with Patient Total time spent is greater than 50% in coordination of care (as documented) at patient's floor/unit and/or counseling patient: Internal Medicine: Result - Labs CBC & Chem 7: 03/01/19 06:53 03/01/19 06:53 Labs: Short CBC 03/01/19 Range/Units 06:53 WBC 5.3 (4.3-11.1) K/mcL Hgb 10.7 L (11.5-15.4) g/dL Hct 35.6 (35.3-44.9) % Plt Count 113 L (140-400) K/mcL Neutrophils # 3.9 (1.6-8.9) K/mcL BMP 03/01/19 06:53 Sodium 142 Potassium 3.9 Chloride 107 Carbon Dioxide 24 BUN 34 H Creatinine 1.34 H Glucose 92 Calcium 8.8 Urine 02/28/19 Range/Units 14:13 Urine Color Yellow (Yellow) Urine Clarity Turbid A (Clear) Urine pH 7.0 (5.0-8.0) pH Units Ur Specific [place] 1.011 (1.010-1.025) Urine Protein 30 H (Neg-Trace) mg/dL Urine Glucose (UA) Normal (Normal) mg/dL - ABG Interpretation ABG results: PT/INR, D-dimer PT 12.4 Seconds (9.4-12.1) H 02/28/19 04:09 Consult Discharge Plan - Plan Referrals: Braden Garibay MD [Primary Care Provider] - (4) Hypothyroidism Qualifiers: Hypothyroidism type: postoperative Qualified Code(s): E89.0 - Postprocedural hypothyroidism (5) COPD (chronic obstructive pulmonary disease) Qualifiers: COPD type: emphysema Emphysema type: unspecified Qualified Code(s): J43.9 - Emphysema, unspecified (6) Protein calorie malnutrition Qualifiers: Protein-calorie malnutrition severity: unspecified severity Qualified Code(s): E46 - Unspecified protein-calorie malnutrition (7) Depression Qualifiers: Depression Type: major depressive disorder Major depression recurrence: recurrent Active/Remission status: in partial remission Qualified Code(s): F33.41 - Major depressive disorder, recurrent, in partial remission (9) GERD (gastroesophageal reflux disease) Qualifiers: Esophagitis presence: esophagitis presence not specified Qualified Code(s): K21.9 - Gastro-esophageal reflux disease without esophagitis (10) Hypoparathyroidism Qualifiers: Hypoparathyroidism type: other hypoparathyroidism Qualified Code(s): E20.8 - Other hypoparathyroidism (11) Chronic kidney disease Qualifiers: Chronic kidney disease stage: stage 3 (moderate) Qualified Code(s): N18.3 - Chronic kidney disease, stage 3 (moderate) (12) Anemia Qualifiers: Anemia type: iron deficiency Qualified Code(s): D50.8 - Other iron deficiency anemias
[2019-03-01] MEDS: Folic Acid 1 MG TABLET PO SCH (09:58)
[2019-03-01] MEDS: Azelastine 0.1% Nasal Spray 30 ML BOTTLE NS SCH (09:58)
[2019-03-01] MEDS: Megestrol Acetate 400 MG/10 ML UDC PO SCH (09:58)
[2019-03-01] MEDS: Lactobacillus 1 EACH CAP.SPRINK PO SCH (09:58)
[2019-03-01] MEDS: Cyanocobalamin (B-12) 1,000 MCG TABLET PO SCH (09:58)
[2019-03-01] MEDS ORDERED: *HR* LORazepam 1 MG TABLET PO PRN (11:35)
[2019-03-02] MEDS: *HR* Heparin 5,000 UNIT/ML VIAL SQ SCH ×3 (05:14→21:35)
[2019-03-02 06:16] LABS: Basophils % 0.5 %; Eosinophils # 0.1 K/mcL (0.0-0.6); Eosinophils % 1.2 %; Hematocrit 33.9 % (35.3-44.9); Hemoglobin 10.5 g/dL (11.5-15.4); Immature Granulocytes % 3.6 % (0-4); Lymphocytes # 1.3 K/mcL (0.6-4.6); Lymphocytes % 21.8 %; Mean Corpuscular Hemoglobin 30.6 pg (28.0-33.3); Mean Corpuscular Volume 98.8 fL (83.0-100.0); Mean Platelet Volume 13.7 fL (9.4-12.4); Monocytes # 0.4 K/mcL (0.0-1.3); Monocytes % 7.3 %; Neutrophils # 3.9 K/mcL (1.6-8.9); Platelet Count 100 K/mcL (140-400); Red Blood Count 3.43 M/mcL (3.82-4.97); Red Cell Distribution Width 14.6 % (11.5-14.5); Segmented Neutrophils % 65.6 %; White Blood Count 5.9 K/mcL (4.3-11.1)
[2019-03-02 06:36] LABS: Calcium 8.9 mg/dL (8.6-10.3); Magnesium 1.8 mg/dL (1.6-2.6); Potassium 4.3 mEq/L (3.5-5.1)
[2019-03-02] MEDS: Budesonide/Formoterol 160/4.5 1 PUFF INH IH SCH ×2 (07:34→20:29)
[2019-03-02] MEDS: Azelastine 0.1% Nasal Spray 30 ML BOTTLE NS SCH (09:07)
[2019-03-02] MEDS: Folic Acid 1 MG TABLET PO SCH (09:07)
[2019-03-02] MEDS: Megestrol Acetate 400 MG/10 ML UDC PO SCH (09:07)
[2019-03-02] MEDS: Cyanocobalamin (B-12) 1,000 MCG TABLET PO SCH (09:07)
[2019-03-02] MEDS: Lactobacillus 1 EACH CAP.SPRINK PO SCH (09:07)
--- NOTE | 2019-03-02 11:11 | Internal Med Progress Note ---
Hospitalist Progress Note - Encounter Date of Encounter: 03/02/19 Time of Encounter: 09:30 - Subjective Interval History: Ms Griffin appears to be oriented to self only unable to provide a thorough history. GEN: Denies fever, chills or malaise HEENT: Denies headache blurriness, or dysphagia RESP: Denies SOB or cough CV: Denies chest pain or palpitations GI: Denies Nausea, vomiting, diarrhea or constipation Reviewed current in hospital medications with modifications see orders Reviewed Routine labs - Exam Vitals: Temp Pulse Resp BP Pulse Ox 98.6 F 72 16 147/104 98 03/02/19 06:37 03/02/19 06:37 03/02/19 07:34 03/02/19 06:37 03/02/19 09:02 Exam: GEN: NAD, A&O x 1 self only, Minimally conversant SKIN: [place] warm acyanotic not jaundice HEART: irregular rate and rhythm, no murmurs LUNGS: CTA no wheeze or crackles, overall non labored ABDOMEN; Soft, non tender or distended, BS x 4 normactive : pure wick female cath noted with clear kwesi colored urine noted in the low wall suction reservoir EXT: No LE edema, Pedal pulses 1+, radial pulses 2+ PSYCH: Mood and affect is appropriate Telemetry revealed irregularly irregular rate and rhythm from 96-101, BP 147/104 - Assessment and Plan (1) Infection due to ESBL-producing Klebsiella pneumoniae Current Visit: Yes Status: Acute Assessment and Plan: Urine culture grew ESBL Klebsiella pneumonia susceptible to Invanz, DC meropenem and Zyvox (2) Complicated UTI (urinary tract infection) Current Visit: No Status: Ruled-out Assessment and Plan: dc Zyvox/meropenem urine cultures revealed ESBL Klebsiella pneumonia switched to Ivanz for 5 days. Overall leukocytosis is afebrile she cannot really confirm or refute dysuria. There is concern for possible colonization (3) Metabolic encephalopathy Current Visit: No Status: Acute Assessment and Plan: Resolved likely back to baseline, she does have a history of Dementia. She is minimally conversant. This may be advanced dementia /end-stage dementia (4) Protein calorie malnutrition Current Visit: No Status: Chronic Assessment and Plan: Likely, complicated by her advanced dementia. Continue to encourage oral intake (5) Hypothyroidism Current Visit: No Status: Chronic Assessment and Plan: Continue levothyroxine for now although check a TSH, given her history of acute encephalopathy (6) COPD (chronic obstructive pulmonary disease) Current Visit: No Status: Chronic Assessment and Plan: c/w previous inhalers. (7) DVT prophylaxis Current Visit: No Status: Acute Assessment and Plan: heparin SQ (8) Depression Current Visit: No Status: Acute Assessment and Plan: She does appear to have advanced dementia although pseudo-dementia from depression as A DIFFERENTIAL. Require outpatient workup (9) Parkinson disease Current Visit: No Status: Chronic Assessment and Plan: Sinemet was on hold we will resume, since Zyvox has been discontinued (10) GERD (gastroesophageal reflux disease) Current Visit: No Status: Chronic Assessment and Plan: Given her current antimicrobial therapy, being high risk for developing C. difficile colitis will discontinue PPI therapy and switch to H2 dong famotidine (11) Hypoparathyroidism Current Visit: No Status: Chronic Assessment and Plan: Calcium wnl monitor clinically correlate (12) Hypercalcemia Current Visit: No Status: Acute Assessment and Plan: Resolved with IV fluids, her serum calcium level does not appear to be the reason for encephalopathy (13) Chronic kidney disease Current Visit: No Status: Chronic Assessment and Plan: stable. Scr trending down (14) Anemia Current Visit: No Status: Acute Assessment and Plan: stable, Hg 10.5 - Time Spent with Patient Total time spent is greater than 50% in coordination of care (as documented) at patient's floor/unit and/or counseling patient: Internal Medicine: Result - Labs CBC & Chem 7: 03/02/19 04:53 03/02/19 04:53 Labs: Short CBC 03/02/19 Range/Units 04:53 WBC 5.9 (4.3-11.1) K/mcL Hgb 10.5 L (11.5-15.4) g/dL Hct 33.9 L (35.3-44.9) % Plt Count 100 L (140-400) K/mcL Neutrophils # 3.9 (1.6-8.9) K/mcL BMP 03/02/19 04:53 Sodium 138 Potassium 4.3 Chloride 108 H Carbon Dioxide 22 L BUN 35 H Creatinine 1.27 H Glucose 78 Calcium 8.9 - ABG Interpretation ABG results: PT/INR, D-dimer PT 12.4 Seconds (9.4-12.1) H 02/28/19 04:09 Consult Discharge Plan - Plan Referrals: Braden Garibay MD [Primary Care Provider] - (4) Protein calorie malnutrition Qualifiers: Protein-calorie malnutrition severity: unspecified severity Qualified Code(s): E46 - Unspecified protein-calorie malnutrition (5) Hypothyroidism Qualifiers: Hypothyroidism type: postoperative Qualified Code(s): E89.0 - Postprocedural hypothyroidism (6) COPD (chronic obstructive pulmonary disease) Qualifiers: COPD type: emphysema Emphysema type: unspecified Qualified Code(s): J43.9 - Emphysema, unspecified (8) Depression Qualifiers: Depression Type: major depressive disorder Major depression recurrence: recurrent Active/Remission status: in partial remission Qualified Code(s): F33.41 - Major depressive disorder, recurrent, in partial remission (10) GERD (gastroesophageal reflux disease) Qualifiers: Esophagitis presence: esophagitis presence not specified Qualified Code(s): K21.9 - Gastro-esophageal reflux disease without esophagitis (11) Hypoparathyroidism Qualifiers: Hypoparathyroidism type: other hypoparathyroidism Qualified Code(s): E20.8 - Other hypoparathyroidism (13) Chronic kidney disease Qualifiers: Chronic kidney disease stage: stage 3 (moderate) Qualified Code(s): N18.3 - Chronic kidney disease, stage 3 (moderate) (14) Anemia Qualifiers: Anemia type: iron deficiency Qualified Code(s): D50.8 - Other iron deficiency anemias
[2019-03-02] MEDS ORDERED: Famotidine 20 MG TABLET PO SCH (21:00)
[2019-03-03 05:05] LABS: Basophils % 0.5 %; Eosinophils # 0.1 K/mcL (0.0-0.6); Eosinophils % 1.6 %; Hemoglobin 10.8 g/dL (11.5-15.4); Immature Granulocytes % 3.2 % (0-4); Lymphocytes # 0.9 K/mcL (0.6-4.6); Lymphocytes % 20.7 %; Mean Corpuscular HGB Conc 30.9 g/dL (31.6-35.5); Mean Corpuscular Volume 100.6 fL (83.0-100.0); Mean Platelet Volume 12.9 fL (9.4-12.4); Monocytes # 0.3 K/mcL (0.0-1.3); Monocytes % 6.6 %; Platelet Count 125 K/mcL (140-400); Red Blood Count 3.48 M/mcL (3.82-4.97); Red Cell Distribution Width 14.6 % (11.5-14.5); Segmented Neutrophils % 67.4 %; White Blood Count 4.4 K/mcL (4.3-11.1)
[2019-03-03 05:23] LABS: Calcium 9.1 mg/dL (8.6-10.3); Magnesium 1.8 mg/dL (1.6-2.6); Potassium 4.5 mEq/L (3.5-5.1)
[2019-03-03] MEDS: *HR* Heparin 5,000 UNIT/ML VIAL SQ SCH ×3 (05:39→20:54)
[2019-03-03] MEDS: Budesonide/Formoterol 160/4.5 1 PUFF INH IH SCH ×2 (07:43→21:19)
[2019-03-03] MEDS: Azelastine 0.1% Nasal Spray 30 ML BOTTLE NS SCH (09:34)
[2019-03-03] MEDS: Famotidine 20 MG TABLET PO SCH (09:34)
[2019-03-03] MEDS: Cyanocobalamin (B-12) 1,000 MCG TABLET PO SCH (09:35)
[2019-03-03] MEDS: Folic Acid 1 MG TABLET PO SCH (09:35)
[2019-03-03] MEDS: amLODIPine 5 MG TABLET PO SCH (09:35)
[2019-03-03] MEDS: Carbidopa/Levodopa ER 50/200 TABLET PO SCH ×2 (09:35→20:54)
[2019-03-03] MEDS: Lactobacillus 1 EACH CAP.SPRINK PO SCH (09:35)
[2019-03-03] MEDS ORDERED: *HR* Metoprolol 5 MG/5 ML VIAL IVP ONE (10:10)
[2019-03-03] MEDS: Megestrol Acetate 400 MG/10 ML UDC PO SCH (11:03)
[2019-03-03] MEDS: Ertapenem 1,000 MG in 0.9 % Sodium Chloride Mini Bag 100 ML IVPB SCH (11:43)
--- NOTE | 2019-03-03 16:15 | Internal Med Progress Note ---
Hospitalist Progress Note - Encounter Date of Encounter: 03/03/19 Time of Encounter: 12:30 - Subjective Interval History: Ms Newberry is more talkative today though still appears to have advanced dementia responds to questions appropriately intermittently GEN: Denies fever, chills or malaise HEENT: Denies headache blurriness, or dysphagia RESP: Denies SOB or cough CV: Denies chest pain or palpitations GI: Denies Nausea, vomiting, diarrhea or constipation Reviewed current in hospital medications with modifications see orders Reviewed Routine labs - Exam Vitals: Temp Pulse Resp BP Pulse Ox 98.0 F 80 16 111/98 100 03/03/19 11:44 03/03/19 11:44 03/03/19 11:44 03/03/19 11:44 03/03/19 11:44 Exam: GEN: NAD, A&O x 1 self only, Minimally conversant but responds to questions appropriately sometimes SKIN: [place] warm acyanotic not jaundice HEART: irregular rate and rhythm, no murmurs LUNGS: CTA no wheeze or crackles, overall non labored ABDOMEN; Soft, non tender or distended, BS x 4 normactive : pure wick female cath noted with clear kwesi colored urine noted in the low wall suction reservoir EXT: No LE edema, Pedal pulses 1+, radial pulses 2+ PSYCH: Mood and affect is appropriate Telemetry revealed irregularly irregular rate and rhythm from 80, BP 111/98 - Assessment and Plan (1) Infection due to ESBL-producing Klebsiella pneumoniae Current Visit: Yes Status: Acute Assessment and Plan: Urine culture grew ESBL Klebsiella pneumonia susceptible to Invanz, DC meropenem and Zyvox, will likely need of Invanz at the [facility] to complete a five-day course anticipate discharge witin next 48 hours (2) Complicated UTI (urinary tract infection) Current Visit: Yes Status: Ruled-out Assessment and Plan: dc Zyvox/meropenem urine cultures revealed ESBL Klebsiella pneumonia switched to Ivanz for 5 days then dc. Overall leukocytosis is afebrile she cannot really confirm or refute dysuria. There is concern for possible colonization (3) Metabolic encephalopathy Current Visit: Yes Status: Acute Assessment and Plan: Resolved likely back to baseline, she does have a history of Dementia. She is minimally conversant. This may be advanced dementia /end-stage dementia (4) Protein calorie malnutrition Current Visit: Yes Status: Chronic Assessment and Plan: Likely, complicated by her advanced dementia. Continue to encourage oral intake she is more awake today (5) Hypothyroidism Current Visit: Yes Status: Chronic Assessment and Plan: Continue levothyroxine TSH 3.429, (6) COPD (chronic obstructive pulmonary disease) Current Visit: Yes Status: Chronic Assessment and Plan: on LAMAand inhaled steroid. as well as albuterol (7) DVT prophylaxis Current Visit: No Status: Acute Assessment and Plan: heparin SQ (8) Depression Current Visit: Yes Status: Acute Assessment and Plan: She does appear to have advanced dementia although pseudo-dementia from depression as A DIFFERENTIAL. Require outpatient workup (9) Parkinson disease Current Visit: Yes Status: Chronic Assessment and Plan: Sinemet was resumed, since Zyvox has been discontinued (10) GERD (gastroesophageal reflux disease) Current Visit: Yes Status: Chronic Assessment and Plan: Given her current antimicrobial therapy, being high risk for developing C. difficile colitis will discontinue PPI therapy and switch to H2 dong famotidine (11) Hypoparathyroidism Current Visit: Yes Status: Chronic Assessment and Plan: Calcium wnl monitor clinically correlate (12) Hypercalcemia Current Visit: Yes Status: Acute Assessment and Plan: Resolved with IV fluids, her serum calcium level does not appear to be the reason for encephalopathy (13) Chronic kidney disease Current Visit: Yes Status: Chronic Assessment and Plan: stable. Scr trending down (14) Anemia Current Visit: Yes Status: Acute Assessment and Plan: stable, trended up slightly Hg 10.5 to 10.8 - Time Spent with Patient Total time spent is greater than 50% in coordination of care (as documented) at patient's floor/unit and/or counseling patient: Internal Medicine: Result - Labs CBC & Chem 7: 03/03/19 04:34 03/03/19 04:34 Labs: Short CBC 03/03/19 Range/Units 04:34 WBC 4.4 (4.3-11.1) K/mcL Hgb 10.8 L (11.5-15.4) g/dL Hct 35.0 L (35.3-44.9) % Plt Count 125 L (140-400) K/mcL Neutrophils # 3.0 (1.6-8.9) K/mcL BMP 03/03/19 04:34 Sodium 138 Potassium 4.5 Chloride 106 Carbon Dioxide 22 L BUN 35 H Creatinine 1.22 H Glucose 80 Calcium 9.1 - ABG Interpretation ABG results: PT/INR, D-dimer PT 12.4 Seconds (9.4-12.1) H 02/28/19 04:09 Consult Discharge Plan - Plan Referrals: Braden Garibay MD [Primary Care Provider] - (4) Protein calorie malnutrition Qualifiers: Protein-calorie malnutrition severity: unspecified severity Qualified Code(s): E46 - Unspecified protein-calorie malnutrition (5) Hypothyroidism Qualifiers: Hypothyroidism type: postoperative Qualified Code(s): E89.0 - Postprocedural hypothyroidism (6) COPD (chronic obstructive pulmonary disease) Qualifiers: COPD type: emphysema Emphysema type: unspecified Qualified Code(s): J43.9 - Emphysema, unspecified (8) Depression Qualifiers: Depression Type: major depressive disorder Major depression recurrence: recurrent Active/Remission status: in partial remission Qualified Code(s): F33.41 - Major depressive disorder, recurrent, in partial remission (10) GERD (gastroesophageal reflux disease) Qualifiers: Esophagitis presence: esophagitis presence not specified Qualified Code(s): K21.9 - Gastro-esophageal reflux disease without esophagitis (11) Hypoparathyroidism Qualifiers: Hypoparathyroidism type: other hypoparathyroidism Qualified Code(s): E20.8 - Other hypoparathyroidism (13) Chronic kidney disease Qualifiers: Chronic kidney disease stage: stage 3 (moderate) Qualified Code(s): N18.3 - Chronic kidney disease, stage 3 (moderate) (14) Anemia Qualifiers: Anemia type: iron deficiency Qualified Code(s): D50.8 - Other iron deficiency anemias
[2019-03-04] MEDS: *HR* Heparin 5,000 UNIT/ML VIAL SQ SCH ×2 (05:24→17:14)
[2019-03-04 05:29] LABS: Basophils % 0.6 %; Eosinophils % 1.8 %
[2019-03-04 05:31] LABS: Eosinophils # 0.1 K/mcL (0.0-0.6); Hematocrit 34.3 % (35.3-44.9); Hemoglobin 10.7 g/dL (11.5-15.4); Immature Granulocytes % 2.1 % (0-4); Immature Platelets 12.6 % (1.1-6.1); Lymphocytes % 22.4 %; Mean Corpuscular HGB Conc 31.2 g/dL (31.6-35.5); Mean Corpuscular Hemoglobin 30.9 pg (28.0-33.3); Mean Corpuscular Volume 99.1 fL (83.0-100.0); Mean Platelet Volume 13.7 fL (9.4-12.4); Monocytes # 0.4 K/mcL (0.0-1.3); Monocytes % 7.8 %; Platelet Count 107 K/mcL (140-400); Red Blood Count 3.46 M/mcL (3.82-4.97); Red Cell Distribution Width 14.7 % (11.5-14.5); Segmented Neutrophils % 65.3 %; White Blood Count 5.1 K/mcL (4.3-11.1)
[2019-03-04 05:46] LABS: Calcium 9.7 mg/dL (8.6-10.3); Magnesium 1.9 mg/dL (1.6-2.6); Potassium 4.8 mEq/L (3.5-5.1)
[2019-03-04 06:02] LABS: Lymphocytes # 1.1 K/mcL (0.6-4.6); Neutrophils # 3.3 K/mcL (1.6-8.9); Platelet Estimate Decreased (Normal)
[2019-03-04 07:05] VITALS: BP 106/73
[2019-03-04] MEDS: Lactobacillus 1 EACH CAP.SPRINK PO SCH (10:13)
[2019-03-04] MEDS: Famotidine 20 MG TABLET PO SCH (10:13)
[2019-03-04] MEDS: Folic Acid 1 MG TABLET PO SCH (10:14)
[2019-03-04] MEDS: amLODIPine 5 MG TABLET PO SCH (10:14)
[2019-03-04] MEDS: Carbidopa/Levodopa ER 50/200 TABLET PO SCH (10:15)
[2019-03-04] MEDS: Megestrol Acetate 400 MG/10 ML UDC PO SCH (10:15)
[2019-03-04] MEDS: Azelastine 0.1% Nasal Spray 30 ML BOTTLE NS SCH (10:15)
[2019-03-04] MEDS: Ertapenem 1,000 MG in 0.9 % Sodium Chloride Mini Bag 100 ML IVPB SCH (10:15)
[2019-03-04] MEDS: Cyanocobalamin (B-12) 1,000 MCG TABLET PO SCH (10:15)
[2019-03-04] MEDS: Budesonide/Formoterol 160/4.5 1 PUFF INH IH SCH (10:48)
--- NOTE | 2019-03-04 15:32 | Discharge Summary ---
- NOTES TO OUTPATIENT PROVIDER Notes to Outpatient Provider: Posthospital follow-up for ESBL UTI metabolic encephalopathy Orders not resulted at time of discharge: Pending orders 02/27/19 22:29 Culture,Blood [BC] Stat Date of Encounter: 03/04/19 Time of Encounter: 15:30 - Discharge Diagnosis (1) Infection due to ESBL-producing Klebsiella pneumoniae Priority: Primary Status: Acute Assessment and Plan: Urine culture grew ESBL Klebsiella pneumonia susceptible to Invanz, DC meropenem and Zyvox, will likely need of Invanz at the [facility] to complete a five-day course discharge pack to residential facility (2) Complicated UTI (urinary tract infection) Priority: Primary Status: Ruled-out Assessment and Plan: dc Zyvox/meropenem urine cultures revealed ESBL Klebsiella pneumonia switched to Ivanz for 5 days then dc. Overall leukocytosis is afebrile she cannot really confirm or refute dysuria. There is concern for possible colonization (3) Metabolic encephalopathy Priority: Secondary Status: Acute Assessment and Plan: Resolved likely back to baseline, she does have a history of Dementia. She is minimally conversant. This may be advanced dementia /end-stage dementia (4) Protein calorie malnutrition Priority: Secondary Status: Chronic Assessment and Plan: Likely, complicated by her advanced dementia. Continue to encourage oral intake Qualifiers: Protein-calorie malnutrition severity: unspecified severity Qualified Code(s): E46 - Unspecified protein-calorie malnutrition (5) Hypothyroidism Priority: Secondary Status: Chronic Assessment and Plan: Continue levothyroxine TSH 3.429, Qualifiers: Hypothyroidism type: postoperative Qualified Code(s): E89.0 - Postprocedural hypothyroidism (6) COPD (chronic obstructive pulmonary disease) Priority: Secondary Status: Chronic Assessment and Plan: on LAMA and inhaled steroid. 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 Require outpatient workup Qualifiers: Depression Type: major depressive disorder Major depression recurrence: recurrent Active/Remission status: in partial remission Qualified Code(s): F33.41 - Major depressive disorder, recurrent, in partial remission (9) Parkinson disease Priority: Secondary Status: Chronic Assessment and Plan: Sinemet was resumed, since Zyvox has been discontinued (10) GERD (gastroesophageal reflux disease) Priority: Secondary Status: Chronic Assessment and Plan: Given her current antimicrobial therapy, being high risk for developing C. difficile colitis will discontinue PPI therapy and switch to H2 dong famotidine Qualifiers: Esophagitis presence: esophagitis presence not specified Qualified Code(s): K21.9 - Gastro-esophageal reflux disease without esophagitis (11) Hypoparathyroidism Priority: Secondary Status: Chronic Assessment and Plan: Calcium wnl monitor clinically correlate Qualifiers: Hypoparathyroidism type: other hypoparathyroidism Qualified Code(s): E20.8 - Other hypoparathyroidism (12) Hypercalcemia Priority: Secondary Status: Acute Assessment and Plan: Resolved with IV fluids, her serum calcium level does not appear to be the reason for encephalopathy (13) Chronic kidney disease Priority: Secondary Status: Chronic Assessment and Plan: stable. Scr trending down Qualifiers: Chronic kidney disease stage: stage 3 (moderate) Qualified Code(s): N18.3 - Chronic kidney disease, stage 3 (moderate) (14) Anemia Priority: Secondary Status: Acute Assessment and Plan: stable 10.7 at discharge Qualifiers: Anemia type: iron deficiency Qualified Code(s): D50.8 - Other iron deficiency anemias Hospital course: Ms. Griffin is a 83 year old female hospitalized for acute encephalopathy which was attributed to her complicated UTI-multidrug resistance Klebsiella pneumonia she will need 3 more days of Invanz. Patient also has likely advanced dementia and noted to exhibit sun downing Discharge discussed with: family, nurse, social work, case management - Time Spent with Patient Total time spent providing and/or coordinating discharge services: 40 mins - Discharge Medications Prescriptions: New Lactobacillus [Culturelle] 1 each PO BID #60 cap.sprink amLODIPine [Norvasc] 5 mg PO DAILY #30 tablet Famotidine [Pepcid] 20 mg PO QD #30 tablet Quetiapine Fumarate [Seroquel] 12.5 mg PO HS #30 tablet Continued Acetaminophen [Tylenol] 650 mg PO Q6HR PRN PRN Reason: Fever/Pain Folic Acid 1 mg PO DAILY Budesonide/Formoterol 160/4.5 [Symbicort 160/4.5] 2 puff IH BID Magnesium Oxide [Magnesium] 400 mg PO DAILY Carbidopa/Levodopa ER 50/200 [Sinemet ER 50-200 Tab] 1 tab PO BID Azelastine 0.1% Nasal [place] [Astelin] 2 spr NS DAILY Megestrol Acetate [Megace] 800 mg PO DAILY #30 bottle Mirtazapine 7.5 mg PO HS Ferrous Sulfate [Iron] 325 mg PO DAILY Levothyroxine Sodium [Euthyrox] 175 mcg PO DAILY Cyanocobalamin (Vitamin B-12) [Vitamin B12] 1,000 mcg PO DAILY Albuterol Sulfate [Proventil Inhaler] 2 puff IH Q4HR PRN PRN Reason: Shortness Of Breath/WHEEZE Calcitriol 1 mcg PO DAILY Metoprolol [Lopressor] 50 mg PO BID #60 tablet Memantine HCl 10 mg PO DAILY Quetiapine Fumarate [Seroquel] 12.5 mg PO HS #30 tablet Changed LORazepam [Ativan] 0.25 mg PO Q8H PRN 8 Days #30 tablet PRN Reason: Severe Agitation Discontinued Omeprazole [PriLOSEC] 20 mg PO DAILY Docusate [Colace] 100 mg PO BID Lactobacillus Acidophilus [Acidophilus] 1 cap PO DAILY Bisacodyl [Dulcolax] 10 mg RC DAILY PRN #30 supp.rect PRN Reason: Constipation cephALEXin [Keflex] 500 mg PO TID #30 capsule Home Medications: Acetaminophen [Tylenol] 650 mg PO Q6HR PRN 09/14/15 [History] Budesonide/Formoterol 160/4.5 [Symbicort 160/4.5] 2 puff IH BID 09/14/15 [History] Folic Acid 1 mg PO DAILY 09/14/15 [History] Magnesium Oxide [Magnesium] 400 mg PO DAILY 09/14/15 [History] Azelastine 0.1% Nasal [place] [Astelin] 2 spr NS DAILY 05/19/17 [History] Carbidopa/Levodopa ER 50/200 [Sinemet ER 50-200 Tab] 1 tab PO BID 05/19/17 [History] Megestrol Acetate [Megace] 800 mg PO DAILY #30 bottle 04/04/18 [Rx] Mirtazapine 7.5 mg PO HS 04/25/18 [History] Ferrous Sulfate [Iron] 325 mg PO DAILY 07/15/18 [History] Levothyroxine Sodium [Euthyrox] 175 mcg PO DAILY 11/08/18 [History] Cyanocobalamin (Vitamin B-12) [Vitamin B12] 1,000 mcg PO DAILY 12/16/18 [History] Albuterol Sulfate [Proventil Inhaler] 2 puff IH Q4HR PRN 01/21/19 [History] Calcitriol 1 mcg PO DAILY 01/21/19 [History] Metoprolol [Lopressor] 50 mg PO BID #60 tablet 01/28/19 [Rx] Memantine HCl 10 mg PO DAILY 02/28/19 [History] Famotidine [Pepcid] 20 mg PO QD #30 tablet 03/04/19 [Rx] LORazepam [Ativan] 0.25 mg PO Q8H PRN 8 Days #30 tablet 03/04/19 [Rx] Lactobacillus [Culturelle] 1 each PO BID #60 cap.sprink 03/04/19 [Rx] Quetiapine Fumarate [Seroquel] 12.5 mg PO HS #30 tablet 03/04/19 [Rx] Quetiapine Fumarate [Seroquel] 12.5 mg PO HS #30 tablet 03/04/19 [Rx] amLODIPine [Norvasc] 5 mg PO DAILY #30 tablet 03/04/19 [Rx] Allergies/Adverse Reactions: Allergy/AdvReac Type Severity Reaction Status Date / Time Amoxicillin Allergy unknown Verified 02/27/19 22:17 atropine Allergy unknown Verified 02/27/19 22:17 codeine Allergy See Verified 02/27/19 22:17 Comments Diphenoxylate Allergy unknown Verified 02/27/19 22:17 enalapril Allergy unknown Verified 02/27/19 22:17 esomeprazole Allergy Unknown Verified 02/27/19 22:17 gluten Allergy Diarrhea Verified 02/27/19 22:17 hydromorphone [Hydromorphone] Allergy unknown Verified 02/27/19 22:17 Iodinated Contrast- Oral and Allergy unknown Verified 02/27/19 22:17 IV Dye [Iodinated Contrast Media - IV Dye] nitrofurantoin Allergy unknown Verified 02/27/19 22:17 Penicillins Allergy Hives Verified 02/28/19 00:44 piroxicam Allergy unknown Verified 02/27/19 22:17 Strontium Allergy Rash Verified 02/27/19 22:17 Sulfa (Sulfonamide Allergy unknown Verified 02/27/19 22:17 Antibiotics) Date of admission: 03/02/19 16:44 Primary care physician: Braden Garibay MD Consults: 02/28/19 10:31 Consult to Occupational Therapy [CONS] Routine Comment: Evaluate, develop and implement POC Reason for Consult: therapy/placement needs Does patient have active BEDREST order?: No Is patient medically & hemodynamically stable?: Yes Consult to Physical Therapy [CONS] Routine Comment: Evaluate, develop and implement POC Reason for Consult: PT eval Does patient have active BEDREST order?: No Is patient medically & hemodynamically stable?: Yes 03/04/19 11:56 Consult to Invasive Line Access Team [CONS] Routine Reason for Consult: Need for 5 days IV Invanz at [facility] Line Type: EPIV Discharging clinician: Singh Paredes - Constitutional Vitals: Temp Pulse Resp BP Pulse Ox 97.2 F L 66 17 106/73 100 03/04/19 07:02 03/04/19 07:02 03/04/19 10:51 03/04/19 07:02 03/04/19 10:51 General appearance: Present: A&O X 0 Exam: GEN: NAD appears somnolent after administration of ativan for aggitation SKIN: [place] warm acyanotic not jaundice HEART: RRR, no murmurs LUNGS: CTA no wheeze or crackles, overall non labored ABDOMEN; Soft, non tender or distended, BS x 4 normactive EXT: No LE edema, Pedal pulses 1+, radial pulses 2+ PSYCH: Mood and affect is appropriate - Patient Status Disposition: Transfer Inpatient Rehab Fac Condition: Fair Overall status at discharge: patient is back to baseline - Discharge Instructions Follow Up With: Braden Garibay MD [Primary Care Provider] - - Diet and Activity Activity: as per physical therapy Diet: low fat, low cholesterol
--- NOTE | 2019-03-04 15:54 | Physician Discharge Referral ---
ExtendedCare Referral Info Provider in Charge after Transfer: Other Institutional Level of Care: Intermediate - Diagnosis (1) Infection due to ESBL-producing Klebsiella pneumoniae Priority: Primary Status: Acute (2) Complicated UTI (urinary tract infection) Priority: Primary Status: Ruled-out (3) Metabolic encephalopathy Priority: Secondary Status: Acute (4) Protein calorie malnutrition Priority: Secondary Status: Chronic (5) Hypothyroidism Priority: Secondary Status: Chronic (6) COPD (chronic obstructive pulmonary disease) Priority: Secondary Status: Chronic (7) DVT prophylaxis Priority: Secondary Status: Acute (8) Depression Priority: Secondary Status: Acute (9) Parkinson disease Priority: Secondary Status: Chronic (10) GERD (gastroesophageal reflux disease) Priority: Secondary Status: Chronic (11) Hypoparathyroidism Priority: Secondary Status: Chronic (12) Hypercalcemia Priority: Secondary Status: Acute (13) Chronic kidney disease Priority: Secondary Status: Chronic (14) Anemia Priority: Secondary Status: Acute Prognosis: Fair Aware of Diagnosis: Family Aware of Prognosis: Family - Transfer Medications Prescriptions: LORazepam [Ativan] 0.25 mg PO Q8H PRN 8 Days #30 tablet PRN Reason: Severe Agitation Lactobacillus [Culturelle] 1 each PO BID #60 cap.sprink Ertapenem [INVanz] 500 mg IVPB DAILY 3 Days #3 vial amLODIPine [Norvasc] 5 mg PO DAILY #30 tablet Famotidine [Pepcid] 20 mg PO QD #30 tablet Quetiapine Fumarate [Seroquel] 12.5 mg PO HS #30 tablet Quetiapine Fumarate [Seroquel] 12.5 mg PO HS #30 tablet Home Medications: Acetaminophen [Tylenol] 650 mg PO Q6HR PRN 09/14/15 [History] Budesonide/Formoterol 160/4.5 [Symbicort 160/4.5] 2 puff IH BID 09/14/15 [History] Folic Acid 1 mg PO DAILY 09/14/15 [History] Magnesium Oxide [Magnesium] 400 mg PO DAILY 09/14/15 [History] Azelastine 0.1% Nasal [place] [Astelin] 2 spr NS DAILY 05/19/17 [History] Carbidopa/Levodopa ER 50/200 [Sinemet ER 50-200 Tab] 1 tab PO BID 05/19/17 [History] Megestrol Acetate [Megace] 800 mg PO DAILY #30 bottle 04/04/18 [Rx] Mirtazapine 7.5 mg PO HS 04/25/18 [History] Ferrous Sulfate [Iron] 325 mg PO DAILY 07/15/18 [History] Levothyroxine Sodium [Euthyrox] 175 mcg PO DAILY 11/08/18 [History] Cyanocobalamin (Vitamin B-12) [Vitamin B12] 1,000 mcg PO DAILY 12/16/18 [History] Albuterol Sulfate [Proventil Inhaler] 2 puff IH Q4HR PRN 01/21/19 [History] Calcitriol 1 mcg PO DAILY 01/21/19 [History] Metoprolol [Lopressor] 50 mg PO BID #60 tablet 01/28/19 [Rx] Memantine HCl 10 mg PO DAILY 02/28/19 [History] Ertapenem [INVanz] 500 mg IVPB DAILY 3 Days #3 vial 03/04/19 [Rx] Famotidine [Pepcid] 20 mg PO QD #30 tablet 03/04/19 [Rx] LORazepam [Ativan] 0.25 mg PO Q8H PRN 8 Days #30 tablet 03/04/19 [Rx] Lactobacillus [Culturelle] 1 each PO BID #60 cap.sprink 03/04/19 [Rx] Quetiapine Fumarate [Seroquel] 12.5 mg PO HS #30 tablet 03/04/19 [Rx] Quetiapine Fumarate [Seroquel] 12.5 mg PO HS #30 tablet 03/04/19 [Rx] amLODIPine [Norvasc] 5 mg PO DAILY #30 tablet 03/04/19 [Rx] Allergies/Adverse Reactions: Allergy/AdvReac Type Severity Reaction Status Date / Time Amoxicillin Allergy unknown Verified 02/27/19 22:17 atropine Allergy unknown Verified 02/27/19 22:17 codeine Allergy See Verified 02/27/19 22:17 Comments Diphenoxylate Allergy unknown Verified 02/27/19 22:17 enalapril Allergy unknown Verified 02/27/19 22:17 esomeprazole Allergy Unknown Verified 02/27/19 22:17 gluten Allergy Diarrhea Verified 02/27/19 22:17 hydromorphone [Hydromorphone] Allergy unknown Verified 02/27/19 22:17 Iodinated Contrast- Oral and Allergy unknown Verified 02/27/19 22:17 IV Dye [Iodinated Contrast Media - IV Dye] nitrofurantoin Allergy unknown Verified 02/27/19 22:17 Penicillins Allergy Hives Verified 02/28/19 00:44 piroxicam Allergy unknown Verified 02/27/19 22:17 Strontium Allergy Rash Verified 02/27/19 22:17 Sulfa (Sulfonamide Allergy unknown Verified 02/27/19 22:17 Antibiotics) - Respiratory Orders Oxygen / L per min Smoking Cessation: Smoking cessation has been advised. For more information, call the [place] [employer] Quit Line at [phone]. - Mobility Orders Ambulate - Rehabiliation Orders Rehab Potential: Fair Rehab Orders: Evaluation for Physical Therapy, Evaluation for Occupational Therapy - Diet Orders Cardiac CERTIFICATION: I certify that the transfer of the above named patient to an Extended Care Facility is necessary for the continuing treatment of the diagnosis listed. The above information is true and accurate reflection of patient's current condition. Confidential - Redisclosure prohibited without a patient's written consent.
== END 2019-03-04 17:34 | DRG 71 ==
LOC: 2NENU 21:52 → EMEROOARM 21:52 → SUATTDRO 02-28 00:36 → 2NENU 02-28 01:40
PROVIDERS: ADMIT Internal Medicine; ATTEND Pharmacist

== ENCOUNTER 2019-06-28 17:32 | Inpatient (IN) ==
[2019-06-28] MEDS ORDERED: 0.9 % Sodium Chloride 1,000 ML IVC ONE ×2 (17:54→18:53)
[2019-06-28 18:17] LABS: Basophils % 0.5 %; Eosinophils # 0.1 K/mcL (0.0-0.6); Eosinophils % 1.8 %; Hematocrit 33.9 % (35.3-44.9); Hemoglobin 10.8 g/dL (11.5-15.4); Lymphocytes # 1.3 K/mcL (0.6-4.6); Lymphocytes % 21.3 %; Mean Corpuscular HGB Conc 31.9 g/dL (31.6-35.5); Mean Corpuscular Hemoglobin 30.7 pg (28.0-33.3); Mean Corpuscular Volume 96.3 fL (83.0-100.0); Mean Platelet Volume 12.9 fL (9.4-12.4); Monocytes # 0.6 K/mcL (0.0-1.3); Neutrophils # 3.9 K/mcL (1.6-8.9); Platelet Count 122 K/mcL (140-400); Red Blood Count 3.52 M/mcL (3.82-4.97); Red Cell Distribution Width 14.6 % (11.5-14.5); Segmented Neutrophils % 65.4 %
[2019-06-28 18:42] LABS: Calcium 12.3 mg/dL (8.6-10.3); Potassium 4.5 mEq/L (3.5-5.1); Troponin I 0.07 ng/mL (< 0.04)
[2019-06-28] MEDS ORDERED: Aspirin 325 MG TABLET PO ONE (18:54)
[2019-06-28 19:41] LABS: Bilirubin,Urine Negative (Negative); Blood,Urine Small (Negative); Clarity,Urine Turbid (Clear); Color,Urine Yellow (Yellow); Glucose,Urine (UA) Normal (Normal); Ketones,Urine Negative (Negative); Leukocyte Esterase,Urine Large (Negative); Nitrite,Urine Negative (Negative); PH,Urine 7.5 pH Units (5.0-8.0); Protein,Urine 30 mg/dL (Neg-Trace); Specific Gravity,Urine 1.013 (1.010-1.025); Urobilinogen,Urine Normal (Normal)
[2019-06-28 19:44] LABS: Bacteria,Urine None Seen per hpf (None-Few); Hyaline Casts,Urine None Seen per lpf (None-Few); RBC,Urine 0-3 per hpf (0-3); Squamous Epithelial Cell,Urine Moderate per lpf (None-Few); WBC,Urine TNTC per hpf (0-3)
[2019-06-28] MEDS ORDERED: Naloxone 0.4 MG/ML INJ IVP PRN (22:59)
[2019-06-28] MEDS ORDERED: Ertapenem 1,000 MG in 0.9 % Sodium Chloride Mini Bag 100 ML IVPB SCH (23:45)
[2019-06-29 07:01] LABS: Hematocrit 32.7 % (35.3-44.9); Hemoglobin 10.3 g/dL (11.5-15.4); Immature Platelets 11.6 % (1.1-6.1); Mean Corpuscular HGB Conc 31.5 g/dL (31.6-35.5); Mean Corpuscular Hemoglobin 29.9 pg (28.0-33.3); Mean Corpuscular Volume 95.1 fL (83.0-100.0); Mean Platelet Volume 12.9 fL (9.4-12.4); Red Blood Count 3.44 M/mcL (3.82-4.97); Red Cell Distribution Width 14.6 % (11.5-14.5)
[2019-06-29 07:26] LABS: Albumin 3.4 g/dL (3.5-5.7); Bilirubin,Total 0.4 mg/dL (0.3-1.0); Globulin 3.4 g/dL (2.4-3.5); Total Protein 6.8 g/dL (6.4-8.9); Troponin I 0.07 ng/mL (< 0.04)
[2019-06-29] MEDS ORDERED: 0.9 % Sodium Chloride 1,000 ML IVC SCH (16:15)
[2019-06-29] MEDS: Carbidopa/Levodopa ER 50/200 TABLET PO SCH (22:07)
[2019-06-29] MEDS: Lactobacillus 1 EACH CAP.SPRINK PO SCH (22:07)
[2019-06-29] MEDS: Budesonide/Formoterol 160/4.5 1 PUFF INH IH SCH (22:53)
[2019-06-30] MEDS: Budesonide/Formoterol 160/4.5 1 PUFF INH IH SCH ×2 (07:56→21:31)
[2019-06-30] MEDS: Folic Acid 1 MG TABLET PO SCH (10:23)
[2019-06-30] MEDS: Carbidopa/Levodopa ER 50/200 TABLET PO SCH ×2 (10:23→20:19)
[2019-06-30] MEDS: Lactobacillus 1 EACH CAP.SPRINK PO SCH ×2 (10:23→20:19)
[2019-06-30 11:42] LABS: Folate > 22.3 ng/mL (3.0-16.0); Vitamin B12 374 pg/mL (250-1100)
[2019-06-30] MEDS ORDERED: Furosemide 40 MG in 0.9 % Sodium Chloride 50 ML IV SCH (12:45)
[2019-06-30] MEDS ORDERED: levoFLOXacin 500 MG/100 ML 500 MG/100 ML BAG IVPB SCH (13:00)
[2019-06-30] MEDS: *HR* Heparin 5,000 UNIT/ML VIAL SQ SCH (14:00)
[2019-06-30] MEDS: Furosemide 40 MG/4 ML VIAL IVP SCH (20:19)
[2019-07-01] MEDS: *HR* Heparin 5,000 UNIT/ML VIAL SQ SCH ×4 (01:53→20:52)
[2019-07-01 02:27] LABS: Basophils % 0.5 %; Eosinophils # 0.1 K/mcL (0.0-0.6); Hematocrit 34.9 % (35.3-44.9); Hemoglobin 11.4 g/dL (11.5-15.4); Immature Granulocytes % 1.1 % (0-4); Lymphocytes # 1.1 K/mcL (0.6-4.6); Mean Corpuscular HGB Conc 32.7 g/dL (31.6-35.5); Mean Corpuscular Hemoglobin 30.8 pg (28.0-33.3); Mean Corpuscular Volume 94.3 fL (83.0-100.0); Mean Platelet Volume 13.6 fL (9.4-12.4); Monocytes # 0.5 K/mcL (0.0-1.3); Monocytes % 8.6 %; Neutrophils # 3.8 K/mcL (1.6-8.9); Platelet Count 105 K/mcL (140-400); Red Cell Distribution Width 14.3 % (11.5-14.5); Segmented Neutrophils % 67.8 %; White Blood Count 5.6 K/mcL (4.3-11.1)
[2019-07-01 02:32] LABS: Calcium 11.6 mg/dL (8.6-10.3); Potassium 4.3 mEq/L (3.5-5.1)
[2019-07-01] MEDS: Lactobacillus 1 EACH CAP.SPRINK PO SCH ×2 (07:43→20:50)
[2019-07-01] MEDS: Magnesium Oxide 400 MG TABLET PO SCH (07:45)
[2019-07-01] MEDS: Carbidopa/Levodopa ER 50/200 TABLET PO SCH ×2 (07:46→20:50)
[2019-07-01] MEDS: Folic Acid 1 MG TABLET PO SCH (07:46)
[2019-07-01] MEDS: Famotidine 20 MG TABLET PO SCH (07:47)
[2019-07-01] MEDS: Megestrol Acetate 400 MG/10 ML UDC PO SCH (07:49)
[2019-07-01] MEDS: Furosemide 40 MG/4 ML VIAL IVP SCH (07:52)
[2019-07-01] MEDS: Budesonide/Formoterol 160/4.5 1 PUFF INH IH SCH ×2 (08:18→20:43)
[2019-07-01] MEDS ORDERED: Furosemide 40 MG/4 ML VIAL IVP SCH (09:00)
[2019-07-01] MEDS ORDERED: Piperacillin/Tazobactam 3.375 GM in 0.9 % Sodium Chloride Mini Bag 100 ML IVPB SCH (10:29)
[2019-07-02] MEDS: Piperacillin/Tazobactam 3.375 GM in 0.9 % Sodium Chloride Mini Bag 100 ML IVPB SCH ×2 (02:04→14:42)
[2019-07-02] MEDS: 0.9 % Sodium Chloride 500 ML IVC SCH (03:00)
[2019-07-02 03:07] LABS: Calcium 12.2 mg/dL (8.6-10.3); Potassium 3.6 mEq/L (3.5-5.1)
[2019-07-02] MEDS: *HR* Heparin 5,000 UNIT/ML VIAL SQ SCH ×3 (05:24→21:09)
[2019-07-02] MEDS: Budesonide/Formoterol 160/4.5 1 PUFF INH IH SCH ×2 (07:55→19:41)
[2019-07-02] MEDS ORDERED: Furosemide 20 MG/2 ML VIAL IVP SCH (09:00)
[2019-07-02] MEDS: Megestrol Acetate 400 MG/10 ML UDC PO SCH (09:30)
[2019-07-02] MEDS: Lactobacillus 1 EACH CAP.SPRINK PO SCH ×2 (09:31→21:07)
[2019-07-02] MEDS: Folic Acid 1 MG TABLET PO SCH (09:31)
[2019-07-02] MEDS: Magnesium Oxide 400 MG TABLET PO SCH (09:32)
[2019-07-02] MEDS: Carbidopa/Levodopa ER 50/200 TABLET PO SCH ×2 (09:32→21:07)
[2019-07-02] MEDS: Famotidine 20 MG TABLET PO SCH (09:32)
[2019-07-02] MEDS ORDERED: Albumin 25% 25gram/100mL 25 GM/100 ML IV.SOLN IVPB ONE (16:08)
[2019-07-02 18:16] LABS: Creatinine,Urine 52 mg/dL
[2019-07-03] MEDS: Piperacillin/Tazobactam 3.375 GM in 0.9 % Sodium Chloride Mini Bag 100 ML IVPB SCH ×3 (00:03→23:53)
[2019-07-03 04:39] LABS: Basophils % 0.5 %; Eosinophils # 0.1 K/mcL (0.0-0.6); Eosinophils % 2.2 %; Hematocrit 30.8 % (35.3-44.9); Immature Granulocytes % 1.4 % (0-4); Lymphocytes # 1.3 K/mcL (0.6-4.6); Lymphocytes % 22.6 %; Mean Corpuscular HGB Conc 31.2 g/dL (31.6-35.5); Mean Corpuscular Hemoglobin 30.4 pg (28.0-33.3); Mean Corpuscular Volume 97.5 fL (83.0-100.0); Mean Platelet Volume 13.3 fL (9.4-12.4); Monocytes # 0.5 K/mcL (0.0-1.3); Monocytes % 8.6 %; Neutrophils # 3.7 K/mcL (1.6-8.9); Platelet Count 104 K/mcL (140-400); Red Blood Count 3.16 M/mcL (3.82-4.97); Red Cell Distribution Width 14.3 % (11.5-14.5); Segmented Neutrophils % 64.7 %; White Blood Count 5.8 K/mcL (4.3-11.1)
[2019-07-03 04:40] LABS: Hemoglobin 9.6 g/dL (11.5-15.4)
[2019-07-03 05:01] LABS: Calcium 11.4 mg/dL (8.6-10.3); Potassium 3.8 mEq/L (3.5-5.1)
[2019-07-03] MEDS: *HR* Heparin 5,000 UNIT/ML VIAL SQ SCH ×3 (06:02→21:16)
[2019-07-03] MEDS: Budesonide/Formoterol 160/4.5 1 PUFF INH IH SCH ×2 (07:35→19:50)
[2019-07-03] MEDS: Lactobacillus 1 EACH CAP.SPRINK PO SCH ×2 (07:47→21:16)
[2019-07-03] MEDS: Magnesium Oxide 400 MG TABLET PO SCH (07:47)
[2019-07-03] MEDS: Megestrol Acetate 400 MG/10 ML UDC PO SCH (07:47)
[2019-07-03] MEDS: Famotidine 20 MG TABLET PO SCH (07:47)
[2019-07-03] MEDS: Folic Acid 1 MG TABLET PO SCH (07:47)
[2019-07-03] MEDS: Carbidopa/Levodopa ER 50/200 TABLET PO SCH ×2 (07:48→21:16)
[2019-07-03] MEDS: 0.9 % Sodium Chloride 500 ML IVC SCH (12:58)
[2019-07-03] MEDS: Docusate Oral Soln 100 MG/10 ML UDC PO SCH (21:16)
[2019-07-04 04:36] LABS: Hematocrit 31.2 % (35.3-44.9); Hemoglobin 9.6 g/dL (11.5-15.4); Immature Platelets 22.3 % (1.1-6.1); Mean Corpuscular HGB Conc 30.8 g/dL (31.6-35.5); Mean Corpuscular Hemoglobin 30.6 pg (28.0-33.3); Mean Corpuscular Volume 99.4 fL (83.0-100.0); Red Blood Count 3.14 M/mcL (3.82-4.97); Red Cell Distribution Width 14.3 % (11.5-14.5); White Blood Count 5.7 K/mcL (4.3-11.1)
[2019-07-04 04:37] LABS: Platelet Count 81 K/mcL (140-400)
[2019-07-04 04:48] LABS: Calcium 11.1 mg/dL (8.6-10.3); Potassium 4.5 mEq/L (3.5-5.1)
[2019-07-04] MEDS: *HR* Heparin 5,000 UNIT/ML VIAL SQ SCH ×3 (05:43→21:08)
[2019-07-04] MEDS: Famotidine 20 MG TABLET PO SCH (05:43)
[2019-07-04] MEDS: 0.9 % Sodium Chloride 500 ML IVC SCH (07:34)
[2019-07-04] MEDS: Budesonide/Formoterol 160/4.5 1 PUFF INH IH SCH ×2 (07:49→20:46)
[2019-07-04] MEDS: Lactobacillus 1 EACH CAP.SPRINK PO SCH ×2 (09:37→21:08)
[2019-07-04] MEDS: Carbidopa/Levodopa ER 50/200 TABLET PO SCH ×2 (09:37→21:08)
[2019-07-04] MEDS: Docusate Oral Soln 100 MG/10 ML UDC PO SCH ×2 (09:37→21:08)
[2019-07-04] MEDS: Folic Acid 1 MG TABLET PO SCH (09:37)
[2019-07-04] MEDS: Magnesium Oxide 400 MG TABLET PO SCH (09:37)
[2019-07-04] MEDS: Megestrol Acetate 400 MG/10 ML UDC PO SCH (09:38)
[2019-07-04] MEDS: Ferrous Sulfate Oral Soln 300 MG/5 ML UDC PO SCH (09:38)
[2019-07-04] MEDS: Piperacillin/Tazobactam 3.375 GM in 0.9 % Sodium Chloride Mini Bag 100 ML IVPB SCH ×2 (12:28→23:32)
[2019-07-04] MEDS: Milk and Molasses Enema 200 ML RC SCH (17:28)
[2019-07-05] MEDS: 0.9 % Sodium Chloride 500 ML IVC SCH (02:00)
[2019-07-05] MEDS ORDERED: Melatonin 3 MG TABLET PO PRN (04:18)
[2019-07-05] MEDS: *HR* Heparin 5,000 UNIT/ML VIAL SQ SCH ×3 (05:30→22:00)
[2019-07-05] MEDS: Famotidine 20 MG TABLET PO SCH (05:42)
[2019-07-05] MEDS: Budesonide/Formoterol 160/4.5 1 PUFF INH IH SCH ×2 (07:30→20:31)
[2019-07-05] MEDS: Docusate Oral Soln 100 MG/10 ML UDC PO SCH ×2 (08:11→20:18)
[2019-07-05] MEDS: Megestrol Acetate 400 MG/10 ML UDC PO SCH (08:11)
[2019-07-05] MEDS: Ferrous Sulfate Oral Soln 300 MG/5 ML UDC PO SCH (08:11)
[2019-07-05] MEDS: Lactobacillus 1 EACH CAP.SPRINK PO SCH ×2 (08:12→20:18)
[2019-07-05] MEDS: Carbidopa/Levodopa ER 50/200 TABLET PO SCH ×2 (08:12→20:18)
[2019-07-05] MEDS: Folic Acid 1 MG TABLET PO SCH (08:12)
[2019-07-05] MEDS: Magnesium Oxide 400 MG TABLET PO SCH (08:12)
[2019-07-05] MEDS: Milk and Molasses Enema 200 ML RC SCH ×2 (10:23→16:00)
[2019-07-05] MEDS: Piperacillin/Tazobactam 3.375 GM in 0.9 % Sodium Chloride Mini Bag 100 ML IVPB SCH ×2 (13:41→23:10)
[2019-07-05 16:34] LABS: Hematocrit 35.8 % (35.3-44.9); Hemoglobin 11.5 g/dL (11.5-15.4); Mean Corpuscular HGB Conc 32.1 g/dL (31.6-35.5); Mean Corpuscular Hemoglobin 30.5 pg (28.0-33.3); Mean Platelet Volume 12.9 fL (9.4-12.4); Platelet Count 150 K/mcL (140-400); Red Blood Count 3.77 M/mcL (3.82-4.97); Red Cell Distribution Width 14.3 % (11.5-14.5); White Blood Count 5.5 K/mcL (4.3-11.1)
[2019-07-05 16:48] LABS: Calcium 11.7 mg/dL (8.6-10.3); Potassium 4.3 mEq/L (3.5-5.1)
[2019-07-06 02:30] LABS: Hematocrit 33.5 % (35.3-44.9); Hemoglobin 10.7 g/dL (11.5-15.4); Mean Corpuscular HGB Conc 31.9 g/dL (31.6-35.5); Mean Corpuscular Hemoglobin 30.5 pg (28.0-33.3); Mean Corpuscular Volume 95.4 fL (83.0-100.0); Mean Platelet Volume 13.8 fL (9.4-12.4); Platelet Count 116 K/mcL (140-400); Red Blood Count 3.51 M/mcL (3.82-4.97); Red Cell Distribution Width 14.6 % (11.5-14.5); White Blood Count 5.5 K/mcL (4.3-11.1)
[2019-07-06 02:45] LABS: Albumin 3.7 g/dL (3.5-5.7); Calcium 11.2 mg/dL (8.6-10.3); Phosphorous 3.3 mg/dL (2.7-4.5); Potassium 5.1 mEq/L (3.5-5.1)
[2019-07-06 02:48] LABS: Calcium 11.2 mg/dL (8.6-10.3)
[2019-07-06] MEDS: 0.9 % Sodium Chloride 500 ML IVC SCH ×2 (03:16→22:13)
[2019-07-06] MEDS: *HR* Heparin 5,000 UNIT/ML VIAL SQ SCH ×3 (03:40→21:12)
[2019-07-06] MEDS ORDERED: Famotidine 20 MG TABLET PO SCH (07:30)
[2019-07-06] MEDS: Budesonide/Formoterol 160/4.5 1 PUFF INH IH SCH ×2 (08:02→20:32)
[2019-07-06] MEDS: Megestrol Acetate 400 MG/10 ML UDC PO SCH (11:04)
[2019-07-06] MEDS: Carbidopa/Levodopa ER 50/200 TABLET PO SCH ×2 (11:04→21:12)
[2019-07-06] MEDS: Magnesium Oxide 400 MG TABLET PO SCH (11:04)
[2019-07-06] MEDS: Lactobacillus 1 EACH CAP.SPRINK PO SCH ×2 (11:04→21:12)
[2019-07-06] MEDS: Docusate Oral Soln 100 MG/10 ML UDC PO SCH ×2 (11:04→21:12)
[2019-07-06] MEDS: Folic Acid 1 MG TABLET PO SCH (11:04)
[2019-07-06] MEDS: Ferrous Sulfate Oral Soln 300 MG/5 ML UDC PO SCH (11:05)
[2019-07-06] MEDS: Piperacillin/Tazobactam 3.375 GM in 0.9 % Sodium Chloride Mini Bag 100 ML IVPB SCH ×2 (11:05→23:42)
[2019-07-06] MEDS: Milk and Molasses Enema 200 ML RC SCH (11:35)
[2019-07-06] MEDS ORDERED: 0.9 % Sodium Chloride 1,000 ML IVC SCH (22:00)
[2019-07-07] MEDS: *HR* Heparin 5,000 UNIT/ML VIAL SQ SCH (06:10)
[2019-07-07 07:42] LABS: Calcium 10.5 mg/dL (8.6-10.3); Potassium 4.6 mEq/L (3.5-5.1)
[2019-07-07] MEDS: Budesonide/Formoterol 160/4.5 1 PUFF INH IH SCH ×2 (07:55→07:56)
[2019-07-07] MEDS: Ferrous Sulfate Oral Soln 300 MG/5 ML UDC PO SCH (10:29)
[2019-07-07] MEDS: Docusate Oral Soln 100 MG/10 ML UDC PO SCH (10:29)
[2019-07-07] MEDS: Lactobacillus 1 EACH CAP.SPRINK PO SCH (10:29)
[2019-07-07] MEDS: Megestrol Acetate 400 MG/10 ML UDC PO SCH (10:29)
[2019-07-07] MEDS: Magnesium Oxide 400 MG TABLET PO SCH (10:30)
[2019-07-07] MEDS: Carbidopa/Levodopa ER 50/200 TABLET PO SCH (10:30)
[2019-07-07] MEDS: Folic Acid 1 MG TABLET PO SCH (10:30)
[2019-07-07] MEDS ORDERED: Cefepime HCl 1,000 MG in Water for inj. (sterile) 10 ML IVP SCH (11:27)
[2019-07-07] MEDS: Milk and Molasses Enema 200 ML RC SCH (12:06)
[2019-07-07] MEDS ORDERED: Lidocaine -MPF 1% 5 ML AMPUL INFILT ONE (12:08)
[2019-07-07 12:17] VITALS: BP 139/75
== END 2019-07-07 16:29 | DRG 689 ==
LOC: 3BNU 17:32 → EMEROOARM 17:32 → 3BNU 21:15
PROVIDERS: ADMIT Family Medicine; ATTEND Family Medicine

== ENCOUNTER 2019-08-30 20:12 | Observation (INO) ==
[2019-08-30 21:27] LABS: Basophils % 0.5 %; Eosinophils # 0.2 K/mcL (0.0-0.6); Eosinophils % 3.4 %; Hematocrit 35.8 % (35.3-44.9); Hemoglobin 10.9 g/dL (11.5-15.4); Immature Granulocytes % 0.7 % (0-4); Lymphocytes # 0.8 K/mcL (0.6-4.6); Mean Corpuscular HGB Conc 30.4 g/dL (31.6-35.5); Mean Corpuscular Hemoglobin 28.7 pg (28.0-33.3); Mean Corpuscular Volume 94.2 fL (83.0-100.0); Monocytes # 0.4 K/mcL (0.0-1.3); Monocytes % 6.7 %; Neutrophils # 4.3 K/mcL (1.6-8.9); Platelet Count 139 K/mcL (140-400); Red Cell Distribution Width 15.9 % (11.5-14.5); Segmented Neutrophils % 74.7 %; White Blood Count 5.8 K/mcL (4.3-11.1)
[2019-08-30 21:34] LABS: INR 1.2; Prothrombin Time 13.3 Seconds (9.4-12.1)
[2019-08-30 21:37] LABS: Activated Partial Thrombo Time 29.9 Seconds (26.0-36.0)
[2019-08-30 21:57] LABS: Alanine Aminotransferase < 3 Units/L (7-52); Albumin 3.9 g/dL (3.5-5.7); Alkaline Phosphatase 88 Units/L (34-104); Aspartate Amino Transferase 19 Units/L (13-39); BUN/Creatinine Ratio 23 (6-26); Bilirubin,Total 0.7 mg/dL (0.3-1.0); Blood Urea Nitrogen 39 mg/dL (8-23); Calcium 9.5 mg/dL (8.6-10.3); Carbon Dioxide 23 mEq/L (23-29); Chloride 102 mEq/L (98-107); Globulin 3.8 g/dL (2.4-3.5); Glucose 98 mg/dL (70-105); Osmolality,Calculated 299 (280-300); Potassium 4.1 mEq/L (3.5-5.1); Sodium 140 mEq/L (136-145); Total Protein 7.7 g/dL (6.4-8.9); eGFR For African Americans 36 (> 60); eGFR For Non-African Americans 29 (> 60)
[2019-08-31 00:22] LABS: Bilirubin,Urine Negative (Negative); Blood,Urine Moderate (Negative); Clarity,Urine Turbid (Clear); Color,Urine Yellow (Yellow); Glucose,Urine (UA) Normal (Normal); Ketones,Urine Negative (Negative); Leukocyte Esterase,Urine Large (Negative); Nitrite,Urine Positive (Negative); Protein,Urine 100 mg/dL (Neg-Trace); Specific Gravity,Urine 1.018 (1.010-1.025); Urobilinogen,Urine Normal (Normal)
[2019-08-31 00:35] LABS: Bacteria,Urine Moderate per hpf (None-Few); Hyaline Casts,Urine None Seen per lpf (None-Few); Squamous Epithelial Cell,Urine Moderate per lpf (None-Few); WBC,Urine TNTC per hpf (0-3)
[2019-08-31] MEDS ORDERED: Ertapenem 1,000 MG in 0.9 % Sodium Chloride Mini Bag 100 ML IVPB STA (00:53)
[2019-08-31] MEDS ORDERED: Ondansetron 4 MG/2 ML VIAL IVP PRN (01:55)
[2019-08-31] MEDS ORDERED: Melatonin 3 MG TABLET PO PRN (01:59)
[2019-08-31] MEDS ORDERED: Acetaminophen 325 MG TABLET PO PRN (01:59)
[2019-08-31] MEDS ORDERED: *HR* LORazepam 1 MG TABLET PO PRN (01:59)
[2019-08-31 05:22] LABS: Adenovirus Not Detected (Not Detect); Coronavirus 229E Not Detected (Not Detect); Coronavirus HKU1 DETECTED (Not Detect); Coronavirus NL63 Not Detected (Not Detect)
[2019-08-31 05:23] LABS: Bordetella Pertussis Not Detected (Not Detect); Chlamydophila pneumoniae Not Detected (Not Detect); Coronavirus OC43 Not Detected (Not Detect); Human Metapneumovirus Not Detected (Not Detect); Human Rhinovirus/Enterovirus Not Detected (Not Detect); Influenza A Subtype 2009 H1 Not Detected (Not Detect); Influenza B Not Detected (Not Detect); Mycoplasma pneumoniae Not Detected (Not Detect); Parainfluenza Virus 1 Not Detected (Not Detect); Parainfluenza Virus 2 Not Detected (Not Detect); Parainfluenza Virus 3 Not Detected (Not Detect); Parainfluenza Virus 4 Not Detected (Not Detect); Respiratory Syncytial Virus Not Detected (Not Detect)
[2019-08-31] MEDS: *HR* Heparin 5,000 UNIT/ML VIAL SQ SCH ×2 (06:02→17:43)
[2019-08-31] MEDS ORDERED: Milk and Molasses Enema 200 ML RC SCH (08:00)
[2019-08-31] MEDS: Sennosides/Docusate Sodium TABLET PO SCH ×2 (09:49→22:00)
[2019-08-31] MEDS: Lactobacillus 1 EACH CAP.SPRINK PO SCH ×2 (09:50→22:00)
[2019-08-31] MEDS: Cyanocobalamin (B-12) 1,000 MCG TABLET PO SCH (09:52)
[2019-08-31] MEDS: Folic Acid 1 MG TABLET PO SCH (09:53)
[2019-08-31] MEDS: Magnesium Oxide 400 MG TABLET PO SCH (09:53)
[2019-08-31] MEDS: Megestrol Acetate 400 MG/10 ML UDC PO SCH (09:56)
[2019-08-31] MEDS: Carbidopa/Levodopa ER 50/200 TABLET PO SCH ×2 (09:56→22:00)
[2019-08-31 10:02] LABS: Basophils % 0.6 %; Eosinophils # 0.2 K/mcL (0.0-0.6); Eosinophils % 3.2 %; Hemoglobin 10.1 g/dL (11.5-15.4); Immature Granulocytes % 0.9 % (0-4); Lymphocytes % 22.3 %; Mean Corpuscular HGB Conc 31.6 g/dL (31.6-35.5); Mean Corpuscular Hemoglobin 29.4 pg (28.0-33.3); Mean Corpuscular Volume 93.3 fL (83.0-100.0); Mean Platelet Volume 12.5 fL (9.4-12.4); Monocytes # 0.4 K/mcL (0.0-1.3); Monocytes % 7.8 %; Platelet Count 138 K/mcL (140-400); Red Blood Count 3.43 M/mcL (3.82-4.97); Red Cell Distribution Width 15.4 % (11.5-14.5); Segmented Neutrophils % 65.2 %; White Blood Count 4.6 K/mcL (4.3-11.1)
[2019-08-31 10:21] LABS: Calcium 9.1 mg/dL (8.6-10.3)
[2019-08-31] MEDS: Budesonide/Formoterol 160/4.5 1 PUFF INH IH SCH ×2 (11:02→20:06)
[2019-09-01] MEDS: *HR* Heparin 5,000 UNIT/ML VIAL SQ SCH (06:27)
[2019-09-01 06:54] LABS: Basophils % 0.4 %; Eosinophils # 0.2 K/mcL (0.0-0.6); Eosinophils % 3.9 %; Hematocrit 34.2 % (35.3-44.9); Hemoglobin 10.3 g/dL (11.5-15.4); Immature Granulocytes % 0.8 % (0-4); Lymphocytes # 1.1 K/mcL (0.6-4.6); Lymphocytes % 22.7 %; Mean Corpuscular HGB Conc 30.1 g/dL (31.6-35.5); Mean Corpuscular Hemoglobin 28.9 pg (28.0-33.3); Mean Corpuscular Volume 96.1 fL (83.0-100.0); Monocytes # 0.4 K/mcL (0.0-1.3); Monocytes % 8.1 %; Neutrophils # 3.1 K/mcL (1.6-8.9); Platelet Count 127 K/mcL (140-400); Red Blood Count 3.56 M/mcL (3.82-4.97); Red Cell Distribution Width 15.4 % (11.5-14.5); Segmented Neutrophils % 64.1 %; White Blood Count 4.8 K/mcL (4.3-11.1)
[2019-09-01 07:14] LABS: Calcium 9.2 mg/dL (8.6-10.3); Magnesium 1.8 mg/dL (1.6-2.6)
[2019-09-01 07:30] VITALS: BP 153/104
[2019-09-01] MEDS: Budesonide/Formoterol 160/4.5 1 PUFF INH IH SCH (07:55)
[2019-09-01] MEDS: Lactobacillus 1 EACH CAP.SPRINK PO SCH (08:54)
[2019-09-01] MEDS: Cyanocobalamin (B-12) 1,000 MCG TABLET PO SCH (08:54)
[2019-09-01] MEDS: Folic Acid 1 MG TABLET PO SCH (08:54)
[2019-09-01] MEDS: Megestrol Acetate 400 MG/10 ML UDC PO SCH (08:54)
[2019-09-01] MEDS: Carbidopa/Levodopa ER 50/200 TABLET PO SCH (08:55)
[2019-09-01] MEDS: Sennosides/Docusate Sodium TABLET PO SCH (08:55)
[2019-09-01] MEDS: Magnesium Oxide 400 MG TABLET PO SCH (08:55)
[2019-09-01] MEDS ORDERED: Ertapenem 1,000 MG in 0.9 % Sodium Chloride Mini Bag 100 ML IVPB ONE (13:00)
== END 2019-09-01 13:00 ==
LOC: EMEROOARM 20:12 → 3NENU 20:12 → SUATTDRO 08-31 01:21 → 3NENU 08-31 02:25
PROVIDERS: ADMIT Student in an Organized Health Care Education/Training Program; ATTEND Pharmacist

== ENCOUNTER 2019-09-07 09:27 | Inpatient (IN) ==
[2019-09-07] MEDS ORDERED: 0.9 % Sodium Chloride 1,000 ML IVC ONE (09:36)
[2019-09-07] MEDS ORDERED: cefTRIAXone 1,000 MG in Water for inj. (sterile) 10 ML IVP STA (09:49)
[2019-09-07 09:55] LABS: Basophils # 0.1 K/mcL (0.0-0.2); Basophils % 0.8 %; Eosinophils # 0.2 K/mcL (0.0-0.6); Eosinophils % 2.1 %; Hemoglobin 11.6 g/dL (11.5-15.4); Immature Granulocytes % 0.8 % (0-4); Lymphocytes # 1.4 K/mcL (0.6-4.6); Lymphocytes % 18.3 %; Mean Corpuscular HGB Conc 31.4 g/dL (31.6-35.5); Mean Corpuscular Hemoglobin 28.9 pg (28.0-33.3); Mean Corpuscular Volume 92.3 fL (83.0-100.0); Mean Platelet Volume 12.7 fL (9.4-12.4); Monocytes # 0.5 K/mcL (0.0-1.3); Neutrophils # 5.4 K/mcL (1.6-8.9); Platelet Count 128 K/mcL (140-400); Red Blood Count 4.01 M/mcL (3.82-4.97); Red Cell Distribution Width 15.9 % (11.5-14.5)
[2019-09-07 09:57] LABS: White Blood Count 7.5 K/mcL (4.3-11.1)
[2019-09-07] MEDS ORDERED: DilTIAZem 50 MG in 0.9 % Sodium Chloride 40 ML IVC SCH (10:00)
[2019-09-07 10:04] LABS: INR 1.2; Prothrombin Time 13.5 Seconds (9.4-12.1)
[2019-09-07 10:16] LABS: Calcium 9.4 mg/dL (8.6-10.3); Magnesium 1.9 mg/dL (1.6-2.6); Potassium 3.7 mEq/L (3.5-5.1)
[2019-09-07 10:27] LABS: Bilirubin,Urine Negative (Negative); Blood,Urine Moderate (Negative); Clarity,Urine Turbid (Clear); Color,Urine Yellow (Yellow); Glucose,Urine (UA) Normal (Normal); Ketones,Urine Negative (Negative); Leukocyte Esterase,Urine Large (Negative); Nitrite,Urine Positive (Negative); Protein,Urine 100 mg/dL (Neg-Trace); Specific Gravity,Urine 1.021 (1.010-1.025); Urobilinogen,Urine Normal (Normal)
[2019-09-07 10:28] LABS: Thyroid Stimulating Hormone 26.693 mcIU/mL (0.340-5.600)
[2019-09-07 10:31] LABS: Bacteria,Urine Few per hpf (None-Few); Squamous Epithelial Cell,Urine Many per lpf (None-Few); WBC,Urine TNTC per hpf (0-3)
[2019-09-07 10:46] LABS: Hyaline Casts,Urine None Seen per lpf (None-Few)
[2019-09-07 10:47] LABS: Renal Epithelial Cells,Urine Few per hpf (None-Few)
[2019-09-07] MEDS ORDERED: Naloxone 0.4 MG/ML INJ IVP PRN (11:00)
[2019-09-07] MEDS ORDERED: *HR* LORazepam 1 MG TABLET PO PRN (12:21)
[2019-09-07] MEDS ORDERED: Melatonin 3 MG TABLET PO PRN (12:21)
[2019-09-07] MEDS ORDERED: Azithromycin 500 MG in 0.9 % Sodium Chloride 250 ML IVPB SCH (13:00)
[2019-09-07] MEDS: Acetaminophen 325 MG TABLET PO PRN (13:43)
[2019-09-07 15:50] LABS: Adenovirus Not Detected (Not Detect); Bordetella Pertussis Not Detected (Not Detect); Chlamydophila pneumoniae Not Detected (Not Detect); Coronavirus 229E Not Detected (Not Detect); Coronavirus HKU1 DETECTED (Not Detect); Coronavirus NL63 Not Detected (Not Detect); Coronavirus OC43 Not Detected (Not Detect); Human Metapneumovirus Not Detected (Not Detect); Human Rhinovirus/Enterovirus Not Detected (Not Detect); Influenza A Subtype 2009 H1 Not Detected (Not Detect); Influenza B Not Detected (Not Detect); Mycoplasma pneumoniae Not Detected (Not Detect); Parainfluenza Virus 1 Not Detected (Not Detect); Parainfluenza Virus 2 Not Detected (Not Detect); Parainfluenza Virus 3 Not Detected (Not Detect); Parainfluenza Virus 4 Not Detected (Not Detect); Respiratory Syncytial Virus Not Detected (Not Detect)
[2019-09-07] MEDS: Lactobacillus 1 EACH CAP.SPRINK PO SCH (19:15)
[2019-09-07] MEDS: QUEtiapine Fumarate 25 MG TABLET PO SCH (19:15)
[2019-09-07] MEDS: Carbidopa/Levodopa ER 50/200 TABLET PO SCH (19:15)
[2019-09-07] MEDS: Budesonide/Formoterol 160/4.5 1 PUFF INH IH SCH (20:17)
[2019-09-08 02:08] LABS: Basophils # 0.1 K/mcL (0.0-0.2); Basophils % 0.9 %; Eosinophils # 0.2 K/mcL (0.0-0.6); Eosinophils % 3.7 %; Hematocrit 33.3 % (35.3-44.9); Hemoglobin 9.8 g/dL (11.5-15.4); Immature Granulocytes % 0.9 % (0-4); Lymphocytes # 1.4 K/mcL (0.6-4.6); Lymphocytes % 24.7 %; Mean Corpuscular HGB Conc 29.4 g/dL (31.6-35.5); Mean Corpuscular Hemoglobin 28.7 pg (28.0-33.3); Mean Corpuscular Volume 97.7 fL (83.0-100.0); Mean Platelet Volume 13.9 fL (9.4-12.4); Monocytes # 0.4 K/mcL (0.0-1.3); Monocytes % 7.1 %; Neutrophils # 3.4 K/mcL (1.6-8.9); Platelet Count 106 K/mcL (140-400); Red Blood Count 3.41 M/mcL (3.82-4.97); Red Cell Distribution Width 15.7 % (11.5-14.5); Segmented Neutrophils % 62.7 %; White Blood Count 5.5 K/mcL (4.3-11.1)
[2019-09-08 02:29] LABS: Calcium 8.5 mg/dL (8.6-10.3); Potassium 3.7 mEq/L (3.5-5.1)
[2019-09-08 02:46] LABS: Triiodothyronine (T3) Free 2.25 pg/mL (2.50-3.90)
[2019-09-08] MEDS: *HR* Heparin 5,000 UNIT/ML VIAL SQ SCH ×2 (05:24→16:31)
[2019-09-08] MEDS: Budesonide/Formoterol 160/4.5 1 PUFF INH IH SCH ×2 (07:34→20:52)
[2019-09-08] MEDS: QUEtiapine Fumarate 25 MG TABLET PO SCH ×2 (07:54→20:44)
[2019-09-08] MEDS: Aspirin Enteric Coated 81 MG Tablet PO SCH (07:55)
[2019-09-08] MEDS: Cyanocobalamin (B-12) 1,000 MCG TABLET PO SCH (07:55)
[2019-09-08] MEDS: PARoxetine 20 MG TABLET PO SCH (07:55)
[2019-09-08] MEDS: Lactobacillus 1 EACH CAP.SPRINK PO SCH ×2 (07:55→20:44)
[2019-09-08] MEDS: Folic Acid 1 MG TABLET PO SCH (07:55)
[2019-09-08] MEDS: Carbidopa/Levodopa ER 50/200 TABLET PO SCH ×2 (07:56→20:45)
[2019-09-08] MEDS: cefTRIAXone 1,000 MG in 0.9 % Sodium Chloride Mini Bag 100 ML IVPB SCH (07:56)
[2019-09-08] MEDS: Megestrol Acetate 400 MG/10 ML UDC PO SCH (07:57)
[2019-09-08] MEDS ORDERED: Magnesium Oxide 400 MG TABLET PO SCH (08:00)
[2019-09-08] MEDS ORDERED: cefTRIAXone 1,000 MG in Water for inj. (sterile) 10 ML IVP SCH (09:00)
[2019-09-08] MEDS ORDERED: Azithromycin 250 MG TABLET PO SCH (09:00)
[2019-09-08] MEDS ORDERED: Dextrose Gel 15 GM/37.5 ML TUBE PO PRN ×2 (10:20)
[2019-09-08] MEDS ORDERED: D5% in Water 1,000 ML IVC PRN (10:20)
[2019-09-08] MEDS ORDERED: *HR* Dextrose 50 % in Water (Syg) 50 ML SYRINGE IVP PRN (10:20)
[2019-09-08] MEDS: Insulin LISPRO 300 UNITS/3 ML VIAL SQ SCH ×2 (11:27→16:31)
[2019-09-08] MEDS: Magnesium Oxide 400 MG TABLET PO SCH (11:31)
[2019-09-08] MEDS: Azelastine 0.1% Nasal Spray 30 ML BOTTLE NS SCH (11:31)
[2019-09-09] MEDS: Insulin LISPRO 300 UNITS/3 ML VIAL SQ SCH ×4 (00:11→17:56)
[2019-09-09] MEDS: *HR* Heparin 5,000 UNIT/ML VIAL SQ SCH ×2 (06:09→16:59)
[2019-09-09 06:12] LABS: Basophils # 0.1 K/mcL (0.0-0.2); Eosinophils # 0.2 K/mcL (0.0-0.6); Eosinophils % 2.6 %; Hematocrit 35.6 % (35.3-44.9); Hemoglobin 10.5 g/dL (11.5-15.4); Immature Granulocytes % 1.2 % (0-4); Lymphocytes # 1.1 K/mcL (0.6-4.6); Lymphocytes % 19.4 %; Mean Corpuscular HGB Conc 29.5 g/dL (31.6-35.5); Mean Corpuscular Hemoglobin 28.6 pg (28.0-33.3); Mean Platelet Volume 13.6 fL (9.4-12.4); Monocytes # 0.4 K/mcL (0.0-1.3); Monocytes % 7.1 %; Platelet Count 118 K/mcL (140-400); Red Blood Count 3.67 M/mcL (3.82-4.97); Red Cell Distribution Width 15.5 % (11.5-14.5); Segmented Neutrophils % 68.7 %; White Blood Count 5.8 K/mcL (4.3-11.1)
[2019-09-09 06:37] LABS: Calcium 8.8 mg/dL (8.6-10.3); Magnesium 1.9 mg/dL (1.6-2.6); Potassium 4.3 mEq/L (3.5-5.1)
[2019-09-09] MEDS: Budesonide/Formoterol 160/4.5 1 PUFF INH IH SCH ×2 (08:04→19:52)
[2019-09-09] MEDS: cefTRIAXone 1,000 MG in 0.9 % Sodium Chloride Mini Bag 100 ML IVPB SCH (09:03)
[2019-09-09] MEDS: Azelastine 0.1% Nasal Spray 30 ML BOTTLE NS SCH (09:04)
[2019-09-09] MEDS: Lactobacillus 1 EACH CAP.SPRINK PO SCH ×2 (09:05→22:05)
[2019-09-09] MEDS: Megestrol Acetate 400 MG/10 ML UDC PO SCH (09:05)
[2019-09-09] MEDS: Furosemide 20 MG/2 ML VIAL IVP SCH (09:05)
[2019-09-09] MEDS: Aspirin Enteric Coated 81 MG Tablet PO SCH (09:06)
[2019-09-09] MEDS: PARoxetine 20 MG TABLET PO SCH (09:06)
[2019-09-09] MEDS: Cyanocobalamin (B-12) 1,000 MCG TABLET PO SCH (09:08)
[2019-09-09] MEDS: Folic Acid 1 MG TABLET PO SCH (09:08)
[2019-09-09] MEDS: Carbidopa/Levodopa ER 50/200 TABLET PO SCH ×2 (09:09→22:06)
[2019-09-09] MEDS: QUEtiapine Fumarate 25 MG TABLET PO SCH ×2 (09:09→22:05)
[2019-09-09] MEDS: Magnesium Oxide 400 MG TABLET PO SCH (16:59)
[2019-09-09] MEDS: Piperacillin/Tazobactam 3.375 GM in 0.9 % Sodium Chloride Mini Bag 100 ML IVPB SCH (18:32)
[2019-09-09] MEDS: Acetaminophen 325 MG TABLET PO PRN (22:05)
[2019-09-10] MEDS: Piperacillin/Tazobactam 3.375 GM in 0.9 % Sodium Chloride Mini Bag 100 ML IVPB SCH (00:47)
[2019-09-10] MEDS: Insulin LISPRO 300 UNITS/3 ML VIAL SQ SCH ×4 (00:53→17:41)
[2019-09-10] MEDS: *HR* Heparin 5,000 UNIT/ML VIAL SQ SCH ×2 (06:12→17:02)
[2019-09-10 06:51] LABS: Calcium 8.4 mg/dL (8.6-10.3)
[2019-09-10] MEDS ORDERED: Cefepime HCl 2,000 MG in 0.9 % Sodium Chloride Mini Bag 100 ML IVPB SCH (07:53)
[2019-09-10] MEDS ORDERED: Nitrofurantoin (BID) 100 MG CAPSULE PO SCH (08:00)
[2019-09-10] MEDS: Aspirin Enteric Coated 81 MG Tablet PO SCH (08:06)
[2019-09-10] MEDS: Megestrol Acetate 400 MG/10 ML UDC PO SCH (08:06)
[2019-09-10] MEDS: QUEtiapine Fumarate 25 MG TABLET PO SCH ×2 (08:06→22:51)
[2019-09-10] MEDS: Lactobacillus 1 EACH CAP.SPRINK PO SCH ×2 (08:06→22:50)
[2019-09-10] MEDS: Cyanocobalamin (B-12) 1,000 MCG TABLET PO SCH (08:07)
[2019-09-10] MEDS: Carbidopa/Levodopa ER 50/200 TABLET PO SCH ×2 (08:07→22:51)
[2019-09-10] MEDS: PARoxetine 20 MG TABLET PO SCH (08:07)
[2019-09-10] MEDS: Folic Acid 1 MG TABLET PO SCH (08:07)
[2019-09-10] MEDS: Furosemide 20 MG/2 ML VIAL IVP SCH (08:07)
[2019-09-10] MEDS: Azelastine 0.1% Nasal Spray 30 ML BOTTLE NS SCH (08:18)
[2019-09-10] MEDS: Budesonide/Formoterol 160/4.5 1 PUFF INH IH SCH ×2 (09:47→20:16)
[2019-09-10] MEDS ORDERED: Fosfomycin Tromethamine 3 GM Packet PO SCH (10:00)
[2019-09-10] MEDS: Magnesium Oxide 400 MG TABLET PO SCH (11:54)
[2019-09-10] MEDS: Acetaminophen 325 MG TABLET PO PRN (22:51)
[2019-09-11] MEDS: Insulin LISPRO 300 UNITS/3 ML VIAL SQ SCH ×2 (00:15→05:55)
[2019-09-11] MEDS: *HR* Heparin 5,000 UNIT/ML VIAL SQ SCH (05:45)
[2019-09-11 06:09] LABS: Basophils # 0.1 K/mcL (0.0-0.2); Basophils % 1.1 %; Eosinophils # 0.2 K/mcL (0.0-0.6); Eosinophils % 2.6 %; Hematocrit 35.3 % (35.3-44.9); Hemoglobin 10.8 g/dL (11.5-15.4); Immature Granulocytes % 1.6 % (0-4); Lymphocytes # 1.1 K/mcL (0.6-4.6); Lymphocytes % 18.8 %; Mean Corpuscular HGB Conc 30.6 g/dL (31.6-35.5); Mean Corpuscular Hemoglobin 29.1 pg (28.0-33.3); Mean Corpuscular Volume 95.1 fL (83.0-100.0); Monocytes # 0.4 K/mcL (0.0-1.3); Monocytes % 7.4 %; Neutrophils # 3.9 K/mcL (1.6-8.9); Platelet Count 137 K/mcL (140-400); Red Blood Count 3.71 M/mcL (3.82-4.97); Red Cell Distribution Width 15.9 % (11.5-14.5); Segmented Neutrophils % 68.5 %; White Blood Count 5.7 K/mcL (4.3-11.1)
[2019-09-11 06:27] LABS: Calcium 8.7 mg/dL (8.6-10.3); Magnesium 2.1 mg/dL (1.6-2.6); Phosphorous 4.5 mg/dL (2.7-4.5); Potassium 4.1 mEq/L (3.5-5.1)
[2019-09-11] MEDS: Budesonide/Formoterol 160/4.5 1 PUFF INH IH SCH (07:31)
[2019-09-11] MEDS: QUEtiapine Fumarate 25 MG TABLET PO SCH (08:30)
[2019-09-11] MEDS: Lactobacillus 1 EACH CAP.SPRINK PO SCH (08:30)
[2019-09-11] MEDS: Aspirin Enteric Coated 81 MG Tablet PO SCH (08:30)
[2019-09-11] MEDS: Folic Acid 1 MG TABLET PO SCH (08:30)
[2019-09-11] MEDS: Furosemide 20 MG/2 ML VIAL IVP SCH (08:31)
[2019-09-11] MEDS: Cyanocobalamin (B-12) 1,000 MCG TABLET PO SCH (08:31)
[2019-09-11] MEDS: Carbidopa/Levodopa ER 50/200 TABLET PO SCH (08:31)
[2019-09-11] MEDS: Megestrol Acetate 400 MG/10 ML UDC PO SCH (08:31)
[2019-09-11] MEDS: PARoxetine 20 MG TABLET PO SCH (08:31)
[2019-09-11] MEDS: Azelastine 0.1% Nasal Spray 30 ML BOTTLE NS SCH (08:38)
[2019-09-11 10:33] VITALS: BP 113/74
[2019-09-11] MEDS ORDERED: Insulin LISPRO 300 UNITS/3 ML VIAL SQ SCH ×2 (11:30→21:00)
== END 2019-09-11 11:20 | disposition other institution (70) | DRG 689 ==
LOC: 2ANU 09:27 → EMEROOARM 09:27 → 2ANU 11:29 → SUATTDRO 09-08 10:35
PROVIDERS: ADMIT Internal Medicine; ATTEND Internal Medicine

== ENCOUNTER 2019-09-24 19:32 | Inpatient (IN) ==
[2019-09-24] MEDS ORDERED: DilTIAZem 50 MG in 0.9 % Sodium Chloride 40 ML IVC SCH (19:45)
[2019-09-24 20:29] LABS: Bilirubin,Urine Negative (Negative); Blood,Urine Small (Negative); Clarity,Urine Turbid (Clear); Color,Urine Yellow (Yellow); Glucose,Urine (UA) Normal (Normal); Ketones,Urine Negative (Negative); Leukocyte Esterase,Urine Large (Negative); Nitrite,Urine Positive (Negative); PH,Urine 6.5 pH Units (5.0-8.0); Protein,Urine 100 mg/dL (Neg-Trace); Urobilinogen,Urine Normal (Normal)
[2019-09-24 20:29] LABS: Hematocrit 37.2 % (35.3-44.9); Hemoglobin 11.6 g/dL (11.5-15.4); Immature Granulocytes % 1.4 % (0-4); Lymphocytes % 17.8 %; Mean Corpuscular HGB Conc 31.2 g/dL (31.6-35.5); Mean Corpuscular Hemoglobin 29.4 pg (28.0-33.3); Mean Corpuscular Volume 94.4 fL (83.0-100.0); Monocytes % 9.7 %; Platelet Count 122 K/mcL (140-400); Red Blood Count 3.94 M/mcL (3.82-4.97); Red Cell Distribution Width 17.3 % (11.5-14.5); Segmented Neutrophils % 68.2 %; White Blood Count 5.7 K/mcL (4.3-11.1)
[2019-09-24 20:30] LABS: WBC,Urine TNTC per hpf (0-3)
[2019-09-24 20:30] LABS: Basophils # 0.1 K/mcL (0.0-0.2); Basophils % 1.1 %; Eosinophils # 0.1 K/mcL (0.0-0.6); Eosinophils % 1.8 %; Monocytes # 0.6 K/mcL (0.0-1.3); Neutrophils # 3.9 K/mcL (1.6-8.9)
[2019-09-24 20:39] LABS: Bacteria,Urine Present per hpf (None-Few); RBC,Urine Present per hpf (0-3); Squamous Epithelial Cell,Urine Present per lpf (None-Few)
[2019-09-24] MEDS: DilTIAZem 50 MG in 0.9 % Sodium Chloride 40 ML IVC SCH (20:57)
[2019-09-24] MEDS ORDERED: Cefepime HCl 2,000 MG in Water for inj. (sterile) 20 ML IVP STA (21:01)
[2019-09-24] MEDS: 0.9 % Sodium Chloride 1,000 ML IVC SCH (21:02)
[2019-09-24 21:52] LABS: Calcium 8.2 mg/dL (8.6-10.3); Magnesium 1.7 mg/dL (1.6-2.6); Potassium 4.3 mEq/L (3.5-5.1)
[2019-09-24 22:01] LABS: Troponin I 0.04 ng/mL (< 0.04)
[2019-09-25] MEDS ORDERED: Ondansetron 4 MG/2 ML VIAL IVP PRN (00:04)
[2019-09-25] MEDS ORDERED: Naloxone 0.4 MG/ML INJ IVP PRN (00:04)
[2019-09-25] MEDS ORDERED: Melatonin 3 MG TABLET PO PRN (00:07)
[2019-09-25 03:02] LABS: Basophils % 0.5 %; Eosinophils # 0.1 K/mcL (0.0-0.6); Eosinophils % 2.4 %; Hematocrit 33.9 % (35.3-44.9); Hemoglobin 10.5 g/dL (11.5-15.4); Immature Granulocytes % 1.7 % (0-4); Immature Platelets 20.5 % (1.1-6.1); Lymphocytes # 1.1 K/mcL (0.6-4.6); Lymphocytes % 18.4 %; Mean Corpuscular Hemoglobin 29.1 pg (28.0-33.3); Mean Corpuscular Volume 93.9 fL (83.0-100.0); Monocytes # 0.6 K/mcL (0.0-1.3); Monocytes % 10.2 %; Neutrophils # 3.9 K/mcL (1.6-8.9); Red Blood Count 3.61 M/mcL (3.82-4.97); Red Cell Distribution Width 17.3 % (11.5-14.5); Segmented Neutrophils % 66.8 %; White Blood Count 5.9 K/mcL (4.3-11.1)
[2019-09-25 03:03] LABS: Platelet Count 90 K/mcL (140-400)
[2019-09-25 03:06] LABS: Magnesium 1.8 mg/dL (1.6-2.6); Potassium 4.3 mEq/L (3.5-5.1)
[2019-09-25] MEDS: DilTIAZem 50 MG in 0.9 % Sodium Chloride 40 ML IVC SCH (04:03)
[2019-09-25] MEDS: 0.9 % Sodium Chloride 1,000 ML IVC SCH (05:21)
[2019-09-25] MEDS: Cefepime HCl 2,000 MG in Water for inj. (sterile) 20 ML IVP SCH ×2 (05:23→18:09)
[2019-09-25] MEDS ORDERED: *HR* Heparin 5,000 UNIT/ML VIAL SQ SCH ×2 (06:00→18:00)
[2019-09-25] MEDS: Budesonide/Formoterol 160/4.5 1 PUFF INH IH SCH ×4 (07:55→20:34)
[2019-09-25] MEDS ORDERED: Aspirin Enteric Coated 81 MG Tablet PO SCH (08:00)
[2019-09-25] MEDS: Folic Acid 1 MG TABLET PO SCH (09:04)
[2019-09-25] MEDS: PARoxetine 20 MG TABLET PO SCH (09:04)
[2019-09-25] MEDS: QUEtiapine Fumarate 25 MG TABLET PO SCH ×2 (09:05→21:33)
[2019-09-25] MEDS: Cyanocobalamin (B-12) 1,000 MCG TABLET PO SCH (09:07)
[2019-09-25] MEDS: Carbidopa/Levodopa 25/100 TABLET PO SCH ×2 (09:07→21:33)
[2019-09-25] MEDS: Aspirin 81 MG TAB.CHEW PO SCH (09:13)
[2019-09-25] MEDS: Azelastine 0.1% Nasal Spray 30 ML BOTTLE NS SCH (09:17)
[2019-09-25] MEDS ORDERED: Ferrous Sulfate Oral Soln 300 MG/5 ML UDC PO SCH (13:15)
[2019-09-25] MEDS: Ferrous Sulfate Oral Soln 300 MG/5 ML UDC PO SCH (15:27)
[2019-09-25] MEDS: Nitrofurantoin (BID) 100 MG CAPSULE PO SCH (18:53)
[2019-09-25 19:47] LABS: Adenovirus Not Detected (Not Detect); Coronavirus 229E Not Detected (Not Detect); Coronavirus HKU1 Not Detected (Not Detect); Coronavirus NL63 Not Detected (Not Detect); Coronavirus OC43 Not Detected (Not Detect); Human Metapneumovirus Not Detected (Not Detect); Human Rhinovirus/Enterovirus Not Detected (Not Detect); Influenza A Subtype 2009 H1 Not Detected (Not Detect)
[2019-09-25 19:48] LABS: Bordetella Pertussis Not Detected (Not Detect); Chlamydophila pneumoniae Not Detected (Not Detect); Influenza B Not Detected (Not Detect); Mycoplasma pneumoniae Not Detected (Not Detect); Parainfluenza Virus 1 Not Detected (Not Detect); Parainfluenza Virus 2 Not Detected (Not Detect); Parainfluenza Virus 3 Not Detected (Not Detect); Parainfluenza Virus 4 Not Detected (Not Detect); Respiratory Syncytial Virus Not Detected (Not Detect)
[2019-09-26 02:46] LABS: BUN/Creatinine Ratio 27 (6-26); Blood Urea Nitrogen 25 mg/dL (8-23); Calcium 7.9 mg/dL (8.6-10.3); Carbon Dioxide 22 mEq/L (23-29); Chloride 108 mEq/L (98-107); Glucose 77 mg/dL (70-105); Osmolality,Calculated 287 (280-300); Potassium 4.3 mEq/L (3.5-5.1); Sodium 137 mEq/L (136-145); eGFR For African Americans > 60 (> 60); eGFR For Non-African Americans 57 (> 60)
[2019-09-26 02:54] LABS: Hematocrit 33.8 % (35.3-44.9); Hemoglobin 10.3 g/dL (11.5-15.4); Immature Platelets 25.2 % (1.1-6.1); Mean Corpuscular HGB Conc 30.5 g/dL (31.6-35.5); Mean Corpuscular Hemoglobin 28.9 pg (28.0-33.3); Mean Corpuscular Volume 94.7 fL (83.0-100.0); Red Blood Count 3.57 M/mcL (3.82-4.97); Red Cell Distribution Width 17.2 % (11.5-14.5); White Blood Count 5.7 K/mcL (4.3-11.1)
[2019-09-26 02:56] LABS: Platelet Count 80 K/mcL (140-400)
[2019-09-26] MEDS: Cefepime HCl 2,000 MG in Water for inj. (sterile) 20 ML IVP SCH ×2 (06:24→18:18)
[2019-09-26] MEDS: Carbidopa/Levodopa 25/100 TABLET PO SCH ×2 (09:05→20:29)
[2019-09-26] MEDS: Azelastine 0.1% Nasal Spray 30 ML BOTTLE NS SCH (09:05)
[2019-09-26] MEDS: Cyanocobalamin (B-12) 1,000 MCG TABLET PO SCH (09:06)
[2019-09-26] MEDS: Nitrofurantoin (BID) 100 MG CAPSULE PO SCH (09:06)
[2019-09-26] MEDS: PARoxetine 20 MG TABLET PO SCH (09:06)
[2019-09-26] MEDS: Folic Acid 1 MG TABLET PO SCH (09:06)
[2019-09-26] MEDS: Aspirin 81 MG TAB.CHEW PO SCH (09:06)
[2019-09-26] MEDS: QUEtiapine Fumarate 25 MG TABLET PO SCH ×2 (09:07→20:29)
[2019-09-26] MEDS: Budesonide Neb 0.5 MG/2 ML IH SCH ×2 (10:54→22:03)
[2019-09-26 11:35] LABS: Basophils % 0.7 %; Eosinophils # 0.1 K/mcL (0.0-0.6); Immature Granulocytes % 1.3 % (0-4); Lymphocytes # 1.1 K/mcL (0.6-4.6); Lymphocytes % 19.6 %; Monocytes # 0.4 K/mcL (0.0-1.3); Nucleated Red Blood Cells 0.5 /100 WBC (0); Segmented Neutrophils % 69.4 %
[2019-09-26] MEDS: Ferrous Sulfate Oral Soln 300 MG/5 ML UDC PO SCH (14:40)
[2019-09-27 05:03] LABS: Hematocrit 35.4 % (35.3-44.9); Hemoglobin 10.9 g/dL (11.5-15.4); Mean Corpuscular HGB Conc 30.8 g/dL (31.6-35.5); Mean Corpuscular Hemoglobin 28.8 pg (28.0-33.3)
[2019-09-27 05:05] LABS: Immature Platelets 17.2 % (1.1-6.1); Mean Corpuscular Volume 93.7 fL (83.0-100.0); Mean Platelet Volume 13.9 fL (9.4-12.4); Red Blood Count 3.78 M/mcL (3.82-4.97); Red Cell Distribution Width 17.4 % (11.5-14.5); White Blood Count 4.9 K/mcL (4.3-11.1)
[2019-09-27 05:14] LABS: BUN/Creatinine Ratio 26 (6-26); Blood Urea Nitrogen 24 mg/dL (8-23); Carbon Dioxide 20 mEq/L (23-29); Chloride 111 mEq/L (98-107); Glucose 79 mg/dL (70-105); Osmolality,Calculated 291 (280-300); Potassium 4.4 mEq/L (3.5-5.1); Sodium 139 mEq/L (136-145); eGFR For African Americans > 60 (> 60); eGFR For Non-African Americans 59 (> 60)
[2019-09-27] MEDS: Cefepime HCl 2,000 MG in Water for inj. (sterile) 20 ML IVP SCH (05:18)
[2019-09-27] MEDS: Budesonide Neb 0.5 MG/2 ML IH SCH ×2 (07:40→22:04)
[2019-09-27] MEDS: Azelastine 0.1% Nasal Spray 30 ML BOTTLE NS SCH (10:03)
[2019-09-27] MEDS: PARoxetine 20 MG TABLET PO SCH (10:04)
[2019-09-27] MEDS: QUEtiapine Fumarate 25 MG TABLET PO SCH ×2 (10:05→20:22)
[2019-09-27] MEDS: Aspirin 81 MG TAB.CHEW PO SCH (10:05)
[2019-09-27] MEDS: Folic Acid 1 MG TABLET PO SCH (10:05)
[2019-09-27] MEDS: Acetaminophen 325 MG TABLET PO PRN (10:05)
[2019-09-27] MEDS: Carbidopa/Levodopa 25/100 TABLET PO SCH ×2 (10:05→20:23)
[2019-09-27] MEDS: Cyanocobalamin (B-12) 1,000 MCG TABLET PO SCH (10:06)
[2019-09-27] MEDS: Ferrous Sulfate Oral Soln 300 MG/5 ML UDC PO SCH (12:10)
[2019-09-27 17:35] LABS: Albumin 3.2 g/dL (3.5-5.7); Bilirubin,Direct 0.2 mg/dL (0.0-0.2); Bilirubin,Indirect 0.6 mg/dL (0.0-1.0); Bilirubin,Total 0.8 mg/dL (0.3-1.0); Globulin 3.1 g/dL (2.4-3.5); Total Protein 6.3 g/dL (6.4-8.9)
[2019-09-27] MEDS: Piperacillin/Tazobactam 3.375 GM in 0.9 % Sodium Chloride Mini Bag 100 ML IVPB SCH (18:47)
[2019-09-28] MEDS: Piperacillin/Tazobactam 3.375 GM in 0.9 % Sodium Chloride Mini Bag 100 ML IVPB SCH ×4 (01:13→23:52)
[2019-09-28] MEDS: Budesonide Neb 0.5 MG/2 ML IH SCH ×2 (07:36→19:45)
[2019-09-28] MEDS: QUEtiapine Fumarate 25 MG TABLET PO SCH ×2 (09:55→20:39)
[2019-09-28] MEDS: Carbidopa/Levodopa 25/100 TABLET PO SCH ×2 (09:56→20:39)
[2019-09-28] MEDS: Aspirin 81 MG TAB.CHEW PO SCH (09:56)
[2019-09-28] MEDS: PARoxetine 20 MG TABLET PO SCH (09:56)
[2019-09-28] MEDS: Cyanocobalamin (B-12) 1,000 MCG TABLET PO SCH (09:56)
[2019-09-28] MEDS: Folic Acid 1 MG TABLET PO SCH (09:56)
[2019-09-28] MEDS: Azelastine 0.1% Nasal Spray 30 ML BOTTLE NS SCH (09:57)
[2019-09-28] MEDS: Ferrous Sulfate Oral Soln 300 MG/5 ML UDC PO SCH (10:24)
[2019-09-28] MEDS: Acetaminophen 325 MG TABLET PO PRN (15:10)
[2019-09-28] MEDS ORDERED: DilTIAZem CD (24hr) 120 MG CAP.ER.24H PO SCH (16:00)
[2019-09-29] MEDS: Budesonide Neb 0.5 MG/2 ML IH SCH ×2 (07:49→21:55)
[2019-09-29] MEDS: Ferrous Sulfate Oral Soln 300 MG/5 ML UDC PO SCH (12:57)
[2019-09-29] MEDS: QUEtiapine Fumarate 25 MG TABLET PO SCH ×2 (12:58→21:35)
[2019-09-29] MEDS: Cyanocobalamin (B-12) 1,000 MCG TABLET PO SCH ×2 (12:58→12:59)
[2019-09-29] MEDS: Folic Acid 1 MG TABLET PO SCH ×2 (12:58→13:00)
[2019-09-29] MEDS: DilTIAZem CD (24hr) 240 MG CAP.ER.24H PO SCH (12:58)
[2019-09-29] MEDS: Piperacillin/Tazobactam 3.375 GM in 0.9 % Sodium Chloride Mini Bag 100 ML IVPB SCH ×2 (13:00→18:24)
[2019-09-29] MEDS: Aspirin 81 MG TAB.CHEW PO SCH (13:05)
[2019-09-29] MEDS: PARoxetine 20 MG TABLET PO SCH (13:06)
[2019-09-29] MEDS: Azelastine 0.1% Nasal Spray 30 ML BOTTLE NS SCH (13:06)
[2019-09-29] MEDS: Carbidopa/Levodopa 25/100 TABLET PO SCH ×2 (13:06→21:34)
[2019-09-30] MEDS: Piperacillin/Tazobactam 3.375 GM in 0.9 % Sodium Chloride Mini Bag 100 ML IVPB SCH ×4 (00:37→23:53)
[2019-09-30] MEDS: Chloraseptic Spray 177 ML BOTTLE MM PRN (00:38)
[2019-09-30 05:30] LABS: Hematocrit 35.2 % (35.3-44.9); Hemoglobin 10.9 g/dL (11.5-15.4); Mean Corpuscular Hemoglobin 29.1 pg (28.0-33.3); Mean Corpuscular Volume 93.9 fL (83.0-100.0); Mean Platelet Volume 13.1 fL (9.4-12.4); Platelet Count 111 K/mcL (140-400); Red Blood Count 3.75 M/mcL (3.82-4.97); Red Cell Distribution Width 17.3 % (11.5-14.5); White Blood Count 4.6 K/mcL (4.3-11.1)
[2019-09-30 05:49] LABS: Calcium 7.9 mg/dL (8.6-10.3); Potassium 3.8 mEq/L (3.5-5.1)
[2019-09-30] MEDS: Budesonide Neb 0.5 MG/2 ML IH SCH ×2 (07:24→20:36)
[2019-09-30] MEDS: DilTIAZem CD (24hr) 240 MG CAP.ER.24H PO SCH (08:32)
[2019-09-30] MEDS: PARoxetine 20 MG TABLET PO SCH (08:33)
[2019-09-30] MEDS: QUEtiapine Fumarate 25 MG TABLET PO SCH ×2 (08:34→20:49)
[2019-09-30] MEDS: Carbidopa/Levodopa 25/100 TABLET PO SCH ×2 (08:34→20:49)
[2019-09-30] MEDS: Aspirin 81 MG TAB.CHEW PO SCH (08:36)
[2019-09-30] MEDS: Azelastine 0.1% Nasal Spray 30 ML BOTTLE NS SCH (08:36)
[2019-09-30] MEDS: Ferrous Sulfate Oral Soln 300 MG/5 ML UDC PO SCH (12:19)
[2019-10-01] MEDS: Chloraseptic Spray 177 ML BOTTLE MM PRN ×2 (06:07→08:17)
[2019-10-01 07:27] VITALS: BP 117/81
[2019-10-01] MEDS: Budesonide Neb 0.5 MG/2 ML IH SCH (07:35)
[2019-10-01] MEDS: PARoxetine 20 MG TABLET PO SCH (08:19)
[2019-10-01] MEDS: Aspirin 81 MG TAB.CHEW PO SCH (08:19)
[2019-10-01] MEDS: QUEtiapine Fumarate 25 MG TABLET PO SCH (08:20)
[2019-10-01] MEDS: Cyanocobalamin (B-12) 1,000 MCG TABLET PO SCH (08:20)
[2019-10-01] MEDS: Azelastine 0.1% Nasal Spray 30 ML BOTTLE NS SCH (08:20)
[2019-10-01] MEDS: Folic Acid 1 MG TABLET PO SCH (08:20)
[2019-10-01] MEDS: Piperacillin/Tazobactam 3.375 GM in 0.9 % Sodium Chloride Mini Bag 100 ML IVPB SCH (08:20)
[2019-10-01] MEDS: DilTIAZem CD (24hr) 240 MG CAP.ER.24H PO SCH (08:20)
[2019-10-01] MEDS: Carbidopa/Levodopa 25/100 TABLET PO SCH (08:20)
[2019-10-01] MEDS ORDERED: Fosfomycin Tromethamine 3 GM Packet PO ONE (10:30)
[2019-10-01] MEDS: Ferrous Sulfate Oral Soln 300 MG/5 ML UDC PO SCH (11:09)
== END 2019-10-01 13:25 | DRG 689 ==
LOC: EMEROOARM 19:32 → 2NENU 19:32 → SUATTDRO 09-25 22:04
PROVIDERS: ADMIT Internal Medicine; ATTEND Internal Medicine

== ENCOUNTER 2020-01-26 16:41 | Inpatient (IN) ==
[2020-01-26] MEDS ORDERED: Ertapenem 1,000 MG in 0.9 % Sodium Chloride Mini Bag 100 ML IVPB ONE (16:52)
[2020-01-26] MEDS ORDERED: *HR* Atropine Sulfate 1 MG/10 ML SYRINGE IVP ONE (17:06)
[2020-01-26] MEDS ORDERED: 0.9 % Sodium Chloride 1,000 ML IVC ONE (17:06)
[2020-01-26 17:27] LABS: INR 1.1; Prothrombin Time 12.5 Seconds (9.4-12.1)
[2020-01-26 17:30] LABS: Activated Partial Thrombo Time 28.9 Seconds (26.0-36.0)
[2020-01-26 17:36] LABS: Basophils # 0.1 K/mcL (0.0-0.2); Basophils % 0.8 %; Eosinophils # 0.1 K/mcL (0.0-0.6); Eosinophils % 1.8 %; Hematocrit 36.5 % (35.3-44.9); Hemoglobin 11.4 g/dL (11.5-15.4); Immature Granulocytes % 0.8 % (0-4); Immature Platelets 11.7 % (1.1-6.1); Lymphocytes # 1.2 K/mcL (0.6-4.6); Lymphocytes % 17.6 %; Mean Corpuscular HGB Conc 31.2 g/dL (31.6-35.5); Mean Corpuscular Hemoglobin 28.4 pg (28.0-33.3); Mean Platelet Volume 13.4 fL (9.4-12.4); Monocytes # 0.5 K/mcL (0.0-1.3); Monocytes % 7.6 %; Neutrophils # 4.7 K/mcL (1.6-8.9); Platelet Count 152 K/mcL (140-400); Red Blood Count 4.01 M/mcL (3.82-4.97); Red Cell Distribution Width 16.1 % (11.5-14.5); Segmented Neutrophils % 71.4 %; White Blood Count 6.6 K/mcL (4.3-11.1)
[2020-01-26 17:43] LABS: Alanine Aminotransferase 18 Units/L (7-52); Albumin 3.6 g/dL (3.5-5.7); Albumin/Globulin Ratio 1.1 (1.1-2.2); Alkaline Phosphatase 105 Units/L (34-104); Aspartate Amino Transferase 24 Units/L (13-39); BUN/Creatinine Ratio 17 (6-26); Bilirubin,Direct 0.2 mg/dL (0.0-0.2); Bilirubin,Indirect 0.5 mg/dL (0.0-1.0); Bilirubin,Total 0.7 mg/dL (0.3-1.0); Blood Urea Nitrogen 23 mg/dL (8-23); Calcium 7.9 mg/dL (8.6-10.3); Carbon Dioxide 22 mEq/L (23-29); Chloride 108 mEq/L (98-107); Creatine Kinase 129 Units/L (30-223); Ethanol < 10 mg/dL (Less than 10); Globulin 3.2 g/dL (2.4-3.5); Glucose 95 mg/dL (70-105); Osmolality,Calculated 291 (280-300); Potassium 3.9 mEq/L (3.5-5.1); Sodium 139 mEq/L (136-145); Total Protein 6.8 g/dL (6.4-8.9); Troponin I 0.03 ng/mL (< 0.04); eGFR For African Americans 46 (> 60); eGFR For Non-African Americans 38 (> 60)
[2020-01-26 17:54] LABS: Bilirubin,Urine Small (Negative); Blood,Urine Large (Negative); Clarity,Urine Turbid (Clear); Color,Urine Yellow (Yellow); Glucose,Urine (UA) Normal (Normal); Ketones,Urine Negative (Negative); Leukocyte Esterase,Urine Large (Negative); Nitrite,Urine Positive (Negative); Protein,Urine 100 mg/dL (Neg-Trace); Specific Gravity,Urine 1.018 (1.010-1.025); Urobilinogen,Urine Normal (Normal)
[2020-01-26 18:08] LABS: Amphetamine Screen,Urine Negative ng/mL (Cutoff=1000); Barbiturate Screen,Urine Negative ng/mL (Cutoff=200); Benzodiazepines Screen,Urine Negative ng/mL (Cutoff=200); Cannabinoid Screen,Urine Negative ng/mL (Cutoff = 50); Cocaine Screen,Urine Negative ng/mL (Cutoff= 300); Opiate Screen,Urine Negative ng/mL (Cutoff=300); Phencyclidine Screen,Urine Negative ng/mL (Cutoff=25)
[2020-01-26 18:17] LABS: WBC,Urine TNTC per hpf (0-3)
[2020-01-26 18:18] LABS: Granular Casts,Urine Few per lpf (None Seen)
[2020-01-26 18:24] LABS: Thyroid Stimulating Hormone 73.764 mcIU/mL (0.340-5.600)
[2020-01-26 20:23] LABS: Magnesium 1.8 mg/dL (1.6-2.6); Phosphorous 3.5 mg/dL (2.7-4.5)
[2020-01-26 20:26] LABS: Triiodothyronine (T3) Free 2.09 pg/mL (2.50-3.90)
[2020-01-26] MEDS ORDERED: Naloxone 0.4 MG/ML INJ IVP PRN (23:01)
[2020-01-26] MEDS ORDERED: Ondansetron ODT 4 MG TAB.RAPDIS SL PRN (23:01)
[2020-01-26] MEDS ORDERED: 0.9 % Sodium Chloride 1,000 ML IVC SCH (23:15)
[2020-01-27] MEDS ORDERED: *HR* Atropine Sulfate 1 MG/10 ML SYRINGE IVP PRN (04:22)
[2020-01-27] MEDS ORDERED: Acetaminophen 325 MG TABLET PO PRN (04:23)
[2020-01-27 05:11] LABS: Hemoglobin 10.8 g/dL (11.5-15.4); Lymphocytes % 19.1 %; Red Cell Distribution Width 16.2 % (11.5-14.5)
[2020-01-27 05:13] LABS: Basophils # 0.1 K/mcL (0.0-0.2); Eosinophils # 0.1 K/mcL (0.0-0.6); Eosinophils % 2.3 %; Hematocrit 34.6 % (35.3-44.9); Immature Granulocytes % 0.6 % (0-4); Immature Platelets 11.8 % (1.1-6.1); Mean Corpuscular HGB Conc 31.2 g/dL (31.6-35.5); Mean Corpuscular Hemoglobin 28.4 pg (28.0-33.3); Mean Corpuscular Volume 91.1 fL (83.0-100.0); Mean Platelet Volume 13.6 fL (9.4-12.4); Monocytes # 0.4 K/mcL (0.0-1.3); Neutrophils # 3.6 K/mcL (1.6-8.9); Platelet Count 134 K/mcL (140-400); White Blood Count 5.2 K/mcL (4.3-11.1)
[2020-01-27 05:32] LABS: Albumin 3.2 g/dL (3.5-5.7); Albumin/Globulin Ratio 1.1 (1.1-2.2); Bilirubin,Total 0.6 mg/dL (0.3-1.0); Calcium 8.1 mg/dL (8.6-10.3); Chol/HDL Ratio 4.5 (0-4.9); Globulin 2.8 g/dL (2.4-3.5); Magnesium 1.7 mg/dL (1.6-2.6); Phosphorous 3.3 mg/dL (2.7-4.5); Potassium 4.1 mEq/L (3.5-5.1); Troponin I 0.03 ng/mL (< 0.04)
[2020-01-27] MEDS ORDERED: PARoxetine HCL 10 MG TABLET PO SCH (08:00)
[2020-01-27] MEDS ORDERED: QUEtiapine Fumarate 25 MG TABLET PO SCH (08:00)
[2020-01-27] MEDS ORDERED: ENTACAPONE PO SCH (08:00)
[2020-01-27] MEDS ORDERED: LEVODOPA PO SCH (08:00)
[2020-01-27] MEDS ORDERED: CARBIDOPA PO SCH (08:00)
[2020-01-27] MEDS: DilTIAZem CD (24hr) 120 MG CAP.ER.24H PO SCH (09:00)
[2020-01-27] MEDS: Aspirin Enteric Coated 81 MG Tablet PO SCH (09:00)
[2020-01-27] MEDS: Ertapenem 1,000 MG in 0.9 % Sodium Chloride Mini Bag 100 ML IVPB SCH (14:07)
[2020-01-27] MEDS: *HR* Heparin 5,000 UNIT/ML VIAL SQ SCH (18:25)
[2020-01-27] MEDS: Budesonide/Formoterol 160/4.5 1 PUFF INH IH SCH (22:29)
[2020-01-27] MEDS: Lactobacillus 1 EACH CAP.SPRINK PO SCH (23:29)
[2020-01-27] MEDS: Linezolid 600 MG TABLET PO SCH (23:30)
[2020-01-28] MEDS: QUEtiapine Fumarate 25 MG TABLET PO SCH ×3 (00:10→21:45)
[2020-01-28] MEDS: Carbidopa/Levodopa 25/100 TABLET PO SCH ×3 (00:11→21:45)
[2020-01-28 02:47] LABS: Hemoglobin 11.3 g/dL (11.5-15.4); Immature Granulocytes % 0.4 % (0-4)
[2020-01-28 02:49] LABS: Basophils % 0.8 %; Eosinophils # 0.2 K/mcL (0.0-0.6); Eosinophils % 3.4 %; Hematocrit 36.7 % (35.3-44.9); Immature Platelets 16.6 % (1.1-6.1); Lymphocytes % 19.2 %; Mean Corpuscular HGB Conc 30.8 g/dL (31.6-35.5); Mean Corpuscular Hemoglobin 27.7 pg (28.0-33.3); Mean Platelet Volume 14.5 fL (9.4-12.4); Monocytes # 0.4 K/mcL (0.0-1.3); Monocytes % 6.9 %; Platelet Count 129 K/mcL (140-400); Red Blood Count 4.08 M/mcL (3.82-4.97); Red Cell Distribution Width 16.4 % (11.5-14.5); Segmented Neutrophils % 69.3 %
[2020-01-28 03:05] LABS: Calcium 8.1 mg/dL (8.6-10.3); Magnesium 1.7 mg/dL (1.6-2.6); Phosphorous 3.1 mg/dL (2.7-4.5); Potassium 3.4 mEq/L (3.5-5.1)
[2020-01-28 03:09] LABS: Neutrophils # 3.5 K/mcL (1.6-8.9); Platelet Estimate Slight Decrease (Normal)
[2020-01-28] MEDS: *HR* Heparin 5,000 UNIT/ML VIAL SQ SCH ×2 (05:24→18:23)
[2020-01-28] MEDS ORDERED: Potassium Chloride 20 MEQ, Lidocaine 1% 2 ML in 0.9 % Sodium Chloride 250 ML IVPB ONE (08:41)
[2020-01-28] MEDS: Budesonide/Formoterol 160/4.5 1 PUFF INH IH SCH ×2 (10:59→20:21)
[2020-01-28] MEDS: Folic Acid 1 MG TABLET PO SCH (11:42)
[2020-01-28] MEDS: Lactobacillus 1 EACH CAP.SPRINK PO SCH ×2 (11:42→21:45)
[2020-01-28] MEDS: Aspirin Enteric Coated 81 MG Tablet PO SCH (11:42)
[2020-01-28] MEDS: Cyanocobalamin (B-12) 1,000 MCG TABLET PO SCH (11:45)
[2020-01-28] MEDS: DilTIAZem CD (24hr) 120 MG CAP.ER.24H PO SCH (11:46)
[2020-01-28] MEDS: Linezolid 600 MG TABLET PO SCH (11:46)
[2020-01-28] MEDS: Ertapenem 1,000 MG in 0.9 % Sodium Chloride Mini Bag 100 ML IVPB SCH (11:49)
[2020-01-29 05:22] LABS: Calcium 8.1 mg/dL (8.6-10.3); Magnesium 1.7 mg/dL (1.6-2.6); Phosphorous 2.8 mg/dL (2.7-4.5); Potassium 3.9 mEq/L (3.5-5.1)
[2020-01-29] MEDS ORDERED: *HR* Metoprolol 5 MG/5 ML VIAL IVP ONE (05:53)
[2020-01-29] MEDS: *HR* Heparin 5,000 UNIT/ML VIAL SQ SCH (06:03)
[2020-01-29] MEDS: QUEtiapine Fumarate 25 MG TABLET PO SCH (08:07)
[2020-01-29] MEDS: DilTIAZem CD (24hr) 120 MG CAP.ER.24H PO SCH (08:08)
[2020-01-29] MEDS: Folic Acid 1 MG TABLET PO SCH (08:08)
[2020-01-29] MEDS: Carbidopa/Levodopa 25/100 TABLET PO SCH (08:08)
[2020-01-29] MEDS: Cyanocobalamin (B-12) 1,000 MCG TABLET PO SCH (08:08)
[2020-01-29] MEDS: Lactobacillus 1 EACH CAP.SPRINK PO SCH (08:08)
[2020-01-29] MEDS: Aspirin Enteric Coated 81 MG Tablet PO SCH (08:08)
[2020-01-29] MEDS: Ertapenem 1,000 MG in 0.9 % Sodium Chloride Mini Bag 100 ML IVPB SCH (08:08)
[2020-01-29] MEDS: Budesonide/Formoterol 160/4.5 1 PUFF INH IH SCH (09:34)
[2020-01-29] MEDS ORDERED: Cefepime HCl 2,000 MG in Water for inj. (sterile) 20 ML IVP SCH (11:00)
[2020-01-29 12:49] VITALS: BP 125/88
[2020-01-30] MEDS ORDERED: DilTIAZem CD (24hr) 180 MG CAP.ER.24H PO SCH (09:00)
== END 2020-01-29 14:51 | DRG 689 ==
LOC: EMEROOARM 16:41 → 3BNU 16:41 → SUATTDRO 19:45 → 3BNU 20:28
PROVIDERS: ADMIT Internal Medicine; ATTEND Internal Medicine

== ENCOUNTER 2020-03-13 11:15 | Inpatient (IN) ==
[2020-03-13] MEDS: 0.9 % Sodium Chloride 1,000 ML IVC SCH ×2 (11:30→12:58)
[2020-03-13] MEDS ORDERED: 0.9 % Sodium Chloride 1,000 ML ONE (11:34)
[2020-03-13] MEDS ORDERED: Piperacillin/Tazobactam 3.375 GM in 0.9 % Sodium Chloride Mini Bag 100 ML IVPB ONE (11:54)
[2020-03-13] MEDS ORDERED: Azithromycin 500 MG in D5% in Water 250 ML IVPB STA (11:55)
[2020-03-13] MEDS ORDERED: 0.9 % Sodium Chloride 1,000 ML IVC STA (12:07)
[2020-03-13 12:13] LABS: Bilirubin,Urine Negative (Negative); Blood,Urine Moderate (Negative); Clarity,Urine Ex.Turbid (Clear); Color,Urine Light-Orange (Yellow); Glucose,Urine (UA) Normal (Normal); Ketones,Urine Trace mg/dL (Negative); Leukocyte Esterase,Urine Large (Negative); Nitrite,Urine Negative (Negative); Protein,Urine 200 mg/dL (Neg-Trace); Specific Gravity,Urine 1.014 (1.010-1.025); Urobilinogen,Urine Normal (Normal)
[2020-03-13 12:15] LABS: Bacteria,Urine Present per hpf (None-Few); WBC,Urine TNTC per hpf (0-3)
[2020-03-13 12:16] LABS: RBC,Urine Present per hpf (0-3); Squamous Epithelial Cell,Urine Present per hpf (None-Few)
[2020-03-13 12:20] LABS: Hemoglobin 12.6 g/dL (11.5-15.4); Mean Corpuscular Hemoglobin 27.3 pg (28.0-33.3); Mean Corpuscular Volume 93.7 fL (83.0-100.0); Nucleated Red Blood Cells 0.1 /100 WBC (0)
[2020-03-13 12:22] LABS: Hematocrit 43.2 % (35.3-44.9); Immature Platelets 22.9 % (1.1-6.1); Mean Corpuscular HGB Conc 29.2 g/dL (31.6-35.5); Monocytes # 0.5 K/mcL (0.0-1.3); Platelet Count 106 K/mcL (140-400); Red Blood Count 4.61 M/mcL (3.82-4.97); Red Cell Distribution Width 17.4 % (11.5-14.5); White Blood Count 13.4 K/mcL (4.3-11.1)
[2020-03-13 12:24] LABS: INR 1.1
[2020-03-13 12:27] LABS: Activated Partial Thrombo Time 23.2 Seconds (26.0-36.0)
[2020-03-13 12:44] LABS: Alanine Aminotransferase < 3 Units/L (7-52); Albumin 3.2 g/dL (3.5-5.7); Albumin/Globulin Ratio 0.9 (1.1-2.2); Alkaline Phosphatase 90 Units/L (34-104); Aspartate Amino Transferase 30 Units/L (13-39); BUN/Creatinine Ratio 24 (6-26); Bilirubin,Direct 0.2 mg/dL (0.0-0.2); Bilirubin,Indirect 0.5 mg/dL (0.0-1.0); Bilirubin,Total 0.7 mg/dL (0.3-1.0); Blood Urea Nitrogen 67 mg/dL (8-23); Carbon Dioxide 17 mEq/L (23-29); Chloride 121 mEq/L (98-107); Globulin 3.7 g/dL (2.4-3.5); Glucose 155 mg/dL (70-105); Magnesium 2.1 mg/dL (1.6-2.6); Osmolality,Calculated 343 (280-300); Sodium 155 mEq/L (136-145); Total Protein 6.9 g/dL (6.4-8.9); Troponin I 0.15 ng/mL (< 0.04); eGFR For African Americans 19 (> 60); eGFR For Non-African Americans 16 (> 60)
[2020-03-13 13:02] LABS: Lymphocytes # 3.2 K/mcL (0.6-4.6); Neutrophils # 9.7 K/mcL (1.6-8.9); Platelet Estimate Slight Decrease (Normal)
[2020-03-13 13:07] LABS: Adenovirus Not Detected (Not Detect); Bordetella Pertussis Not Detected (Not Detect); Chlamydophila pneumoniae Not Detected (Not Detect); Coronavirus 229E Not Detected (Not Detect); Coronavirus HKU1 Not Detected (Not Detect); Coronavirus NL63 Not Detected (Not Detect); Coronavirus OC43 Not Detected (Not Detect); Human Metapneumovirus Not Detected (Not Detect); Human Rhinovirus/Enterovirus Not Detected (Not Detect); Influenza A Subtype 2009 H1 Not Detected (Not Detect); Influenza B Not Detected (Not Detect); Mycoplasma pneumoniae Not Detected (Not Detect); Parainfluenza Virus 1 Not Detected (Not Detect); Parainfluenza Virus 2 Not Detected (Not Detect); Parainfluenza Virus 3 Not Detected (Not Detect); Parainfluenza Virus 4 Not Detected (Not Detect); Respiratory Syncytial Virus Not Detected (Not Detect)
[2020-03-13] MEDS ORDERED: Dexamethasone 4 MG/ML VIAL IVP ONE (13:27)
[2020-03-13] MEDS: FentaNYL (PF) 1,000 MCG/100 ML IV.SOLN IVC SCH (13:30)
[2020-03-13] MEDS: Midazolam HCl 50 MG/100 ML IV.SOLN IVC SCH (13:36)
[2020-03-13] MEDS ORDERED: Albuterol 2.5 MG/3 ML NEBULIZER IH PRN (14:09)
[2020-03-13] MEDS ORDERED: Ipratropium/Albuterol Neb 3 ML IH PRN (14:09)
[2020-03-13 14:20] LABS: ABG Base Excess -8 mEq/L (-2 to 3); ABG HCO3 16 mEq/L (21-27); ABG Oxygen Saturation 96 % (95-98); ABG PCO2 29 mmHg (35-45); ABG PH 7.35 pH Units (7.32-7.45); ABG PO2 85 mmHg (85-104); ABG TCO2 17 mEq/L (20-26); Blood Gas Modality AF; Blood Gas VT 480 cc
[2020-03-13] MEDS: Ringers Solution, Lactated 1,000 ML IVC SCH ×2 (14:33→19:33)
[2020-03-13] MEDS: Norepinephrine 4 MG/254 ML IV.SOLN IVC SCH (15:28)
[2020-03-13] MEDS ORDERED: D5% in Water 1,000 ML IVC PRN (15:56)
[2020-03-13] MEDS ORDERED: Dextrose Gel 15 GM/37.5 ML TUBE PO PRN ×2 (15:56)
[2020-03-13] MEDS ORDERED: *HR* Dextrose 50 % in Water (Vial) 50 ML VIAL IVP PRN (15:56)
[2020-03-13] MEDS ORDERED: Insulin LISPRO 300 UNITS/3 ML VIAL SQ SCH (16:30)
[2020-03-13] MEDS ORDERED: *HR* Rocuronium Bromide 50 MG/5 ML VIAL IVP ONE (17:37)
[2020-03-13] MEDS ORDERED: *HR* Etomidate 20 MG/10 ML AMPUL IVP ONE (17:37)
[2020-03-13 17:55] LABS: ABG Base Excess -8 mEq/L (-2 to 3); ABG HCO3 16 mEq/L (21-27); ABG Oxygen Saturation 91 % (95-98); ABG PCO2 29 mmHg (35-45); ABG PH 7.36 pH Units (7.32-7.45); ABG PO2 61 mmHg (85-104); ABG TCO2 17 mEq/L (20-26); Blood Gas Modality AF; Blood Gas VT 400 cc
[2020-03-13 18:21] LABS: Hematocrit 37.6 % (35.3-44.9); Hemoglobin 10.9 g/dL (11.5-15.4); Immature Platelets 22.3 % (1.1-6.1); Mean Corpuscular Volume 93.1 fL (83.0-100.0); Nucleated Red Blood Cells 0.2 /100 WBC (0); Platelet Count 106 K/mcL (140-400); Red Blood Count 4.04 M/mcL (3.82-4.97); Red Cell Distribution Width 17.2 % (11.5-14.5); White Blood Count 12.3 K/mcL (4.3-11.1)
[2020-03-13 18:39] LABS: Calcium 6.9 mg/dL (8.6-10.3); Potassium 3.7 mEq/L (3.5-5.1)
[2020-03-13 18:59] LABS: Troponin I 0.12 ng/mL (< 0.04)
[2020-03-13 19:13] LABS: Large Platelets Present (Not Present); Platelet Estimate Decreased (Normal); Toxic Granulation Present (Not Present)
[2020-03-13 19:15] LABS: Lymphocytes # 0.3 K/mcL (0.6-4.6); Monocytes # 0.5 K/mcL (0.0-1.3); Neutrophils # 11.6 K/mcL (1.6-8.9)
[2020-03-13] MEDS ORDERED: *HR* Heparin 5,000 UNIT/ML VIAL IVP PRN ×2 (19:17)
[2020-03-13] MEDS ORDERED: Heparin 25,000 UNIT/250 ML D5W 25,000 UNIT/250 ML IV.SOLN IVC SCH (19:30)
[2020-03-13] MEDS: Cefepime HCl 1,000 MG in Water for inj. (sterile) 10 ML IVP SCH (19:31)
[2020-03-13] MEDS: Pantoprazole 40 MG VIAL IVP SCH (19:32)
[2020-03-13] MEDS: Artificial Tears SOLN 15 ML BOTTLE BOTH EYES SCH ×2 (19:32→20:21)
[2020-03-13] MEDS: MetroNIDAZOLE 500 MG/100 ML 500 MG/100 ML BAG IVPB SCH (19:32)
[2020-03-13] MEDS: D5% in Water 1,000 ML IVC SCH (19:33)
[2020-03-13 21:09] LABS: Hemoglobin 11.1 g/dL (11.5-15.4); Red Cell Distribution Width 17.4 % (11.5-14.5)
[2020-03-13 21:11] LABS: Hematocrit 37.9 % (35.3-44.9); Immature Platelets 22.5 % (1.1-6.1); Mean Corpuscular HGB Conc 29.3 g/dL (31.6-35.5); Mean Corpuscular Hemoglobin 27.2 pg (28.0-33.3); Mean Corpuscular Volume 92.9 fL (83.0-100.0); Platelet Count 111 K/mcL (140-400); Red Blood Count 4.08 M/mcL (3.82-4.97); White Blood Count 12.2 K/mcL (4.3-11.1)
[2020-03-13 21:19] LABS: Heparin anti-factor XA UFH < 0.04 IU/mL (0.30-0.70); INR 1.2; Prothrombin Time 13.1 Seconds (9.4-12.1)
[2020-03-13 21:22] LABS: Activated Partial Thrombo Time 25.8 Seconds (26.0-36.0)
[2020-03-13] MEDS ORDERED: *HR* Heparin 5,000 UNIT/ML VIAL SQ SCH (22:00)
[2020-03-13 22:28] LABS: ABG Base Excess -9 mEq/L (-2 to 3); ABG HCO3 17 mEq/L (21-27); ABG Oxygen Saturation 91 % (95-98); ABG PCO2 36 mmHg (35-45); ABG PH 7.27 pH Units (7.32-7.45); ABG PO2 69 mmHg (85-104); ABG TCO2 18 mEq/L (20-26); Blood Gas Modality ASSIST CONTROL; Blood Gas VT 400 cc
[2020-03-14] MEDS: Artificial Tears SOLN 15 ML BOTTLE BOTH EYES SCH ×7 (00:01→23:40)
[2020-03-14] MEDS: MetroNIDAZOLE 500 MG/100 ML 500 MG/100 ML BAG IVPB SCH ×4 (00:01→23:40)
[2020-03-14 00:44] LABS: Potassium 3.9 mEq/L (3.5-5.1)
[2020-03-14 04:17] LABS: ABG Base Excess -9 mEq/L (-2 to 3); ABG HCO3 17 mEq/L (21-27); ABG Oxygen Saturation 98 % (95-98); ABG PCO2 37 mmHg (35-45); ABG PH 7.27 pH Units (7.32-7.45); ABG PO2 125 mmHg (85-104); ABG TCO2 18 mEq/L (20-26); Blood Gas Modality ASSIST CONTROL; Blood Gas VT 400 cc
[2020-03-14 04:42] LABS: Hematocrit 35.7 % (35.3-44.9); Hemoglobin 10.2 g/dL (11.5-15.4); Mean Corpuscular HGB Conc 28.6 g/dL (31.6-35.5); Mean Corpuscular Hemoglobin 26.9 pg (28.0-33.3); Mean Corpuscular Volume 94.2 fL (83.0-100.0); Red Blood Count 3.79 M/mcL (3.82-4.97); Red Cell Distribution Width 17.5 % (11.5-14.5)
[2020-03-14 04:44] LABS: Immature Platelets 22.4 % (1.1-6.1); Monocytes # 0.2 K/mcL (0.0-1.3); White Blood Count 9.4 K/mcL (4.3-11.1)
[2020-03-14] MEDS: *HR* Heparin 5,000 UNIT/ML VIAL SQ SCH ×4 (04:57→20:32)
[2020-03-14] MEDS: D5% in Water 1,000 ML IVC SCH ×2 (04:58→16:47)
[2020-03-14] MEDS: Ringers Solution, Lactated 1,000 ML IVC SCH ×3 (04:58→16:48)
[2020-03-14 05:02] LABS: Calcium 6.7 mg/dL (8.6-10.3)
[2020-03-14 05:04] LABS: Platelet Count 90 K/mcL (140-400)
[2020-03-14 05:34] LABS: Lymphocytes # 0.8 K/mcL (0.6-4.6); Neutrophils # 8.5 K/mcL (1.6-8.9); Platelet Estimate Slight Decrease (Normal); Toxic Granulation Present (Not Present)
[2020-03-14] MEDS: Dexamethasone 4 MG/ML VIAL IVP SCH (08:35)
[2020-03-14] MEDS: Chlorhexidine Rinse 15 ML MOUTHWASH MM SCH ×3 (08:35→20:32)
[2020-03-14] MEDS: PARoxetine HCL 10 MG TABLET PO SCH (08:36)
[2020-03-14] MEDS: Pantoprazole 40 MG VIAL IVP SCH (08:36)
[2020-03-14] MEDS: FentaNYL (PF) 1,000 MCG/100 ML IV.SOLN IVC SCH (11:43)
[2020-03-14] MEDS: Midazolam HCl 50 MG/100 ML IV.SOLN IVC SCH (11:43)
[2020-03-14] MEDS: Insulin LISPRO 300 UNITS/3 ML VIAL SQ SCH ×3 (12:09→23:52)
[2020-03-14 12:36] LABS: Calcium 6.6 mg/dL (8.6-10.3)
[2020-03-14 12:44] LABS: Acinetobacter baumannii by PCR Not Detected (Not Detect); Candida albicans by PCR Not Detected (Not Detect); Candida glabrata by PCR Not Detected (Not Detect); Candida krusei by PCR Not Detected (Not Detect); Candida parapsilosis by PCR Not Detected (Not Detect); Candida tropicalis by PCR Not Detected (Not Detect); Enterobacter cloacae Cmplx PCR Not Detected (Not Detect); Enterobacteriaceae by PCR Not Detected (Not Detect); Enterococcus by PCR Not Detected (Not Detect); Escherichia coli by PCR Not Detected (Not Detect); Klebsiella oxytoca by PCR Not Detected (Not Detect); Klebsiella pneumoniae by PCR Not Detected (Not Detect); Proteus by PCR Not Detected (Not Detect); Pseudomonas aeruginosa by PCR Not Detected (Not Detect); Serratia marcescens by PCR Not Detected (Not Detect); Staphylococcus aureus by PCR DETECTED (Not Detect); Streptococcus agalactiae(B)PCR Not Detected (Not Detect); Streptococcus by PCR Not Detected (Not Detect); Streptococcus pneumoniae PCR Not Detected (Not Detect); Streptococcus pyogenes (A) PCR Not Detected (Not Detect); mecA Methicillin-Resist Gene DETECTED (Not Detect)
[2020-03-14] MEDS: Norepinephrine 4 MG/254 ML IV.SOLN IVC SCH (14:43)
[2020-03-14] MEDS: Cefepime HCl 1,000 MG in Water for inj. (sterile) 10 ML IVP SCH (14:53)
[2020-03-14 21:41] LABS: ABG Base Excess -8 mEq/L (-2 to 3); ABG HCO3 17 mEq/L (21-27); ABG Oxygen Saturation 95 % (95-98); ABG PCO2 32 mmHg (35-45); ABG PH 7.34 pH Units (7.32-7.45); ABG PO2 78 mmHg (85-104); ABG TCO2 18 mEq/L (20-26); Blood Gas Modality ASSIST CONTROL; Blood Gas VT 400 cc
[2020-03-15] MEDS: FentaNYL (PF) 1,000 MCG/100 ML IV.SOLN IVC SCH (00:52)
[2020-03-15] MEDS: Artificial Tears SOLN 15 ML BOTTLE BOTH EYES SCH ×6 (03:38→23:49)
[2020-03-15 03:52] LABS: Hemoglobin 9.7 g/dL (11.5-15.4)
[2020-03-15 03:54] LABS: Hematocrit 33.1 % (35.3-44.9); Immature Platelets 26.8 % (1.1-6.1); Lymphocytes # 0.4 K/mcL (0.6-4.6); Mean Corpuscular HGB Conc 29.3 g/dL (31.6-35.5); Mean Corpuscular Hemoglobin 27.2 pg (28.0-33.3); Nucleated Red Blood Cells 0.9 /100 WBC (0); Red Blood Count 3.56 M/mcL (3.82-4.97); Red Cell Distribution Width 17.4 % (11.5-14.5); White Blood Count 9.9 K/mcL (4.3-11.1)
[2020-03-15 03:59] LABS: Platelet Count 87 K/mcL (140-400)
[2020-03-15 04:06] LABS: Calcium 6.7 mg/dL (8.6-10.3); Potassium 3.8 mEq/L (3.5-5.1)
[2020-03-15 04:49] LABS: ABG Base Excess -9 mEq/L (-2 to 3); ABG HCO3 16 mEq/L (21-27); ABG Oxygen Saturation 97 % (95-98); ABG PCO2 33 mmHg (35-45); ABG PH 7.31 pH Units (7.32-7.45); ABG PO2 96 mmHg (85-104); ABG TCO2 17 mEq/L (20-26); Blood Gas Modality ASSIST CONTROL; Blood Gas VT 400 cc
[2020-03-15 05:26] LABS: Monocytes # 0.4 K/mcL (0.0-1.3); Neutrophils # 9.1 K/mcL (1.6-8.9); Platelet Estimate Decreased (Normal); Smudge Cells Present (Not Present)
[2020-03-15] MEDS: *HR* Heparin 5,000 UNIT/ML VIAL SQ SCH ×3 (05:32→21:19)
[2020-03-15] MEDS: Insulin LISPRO 300 UNITS/3 ML VIAL SQ SCH ×3 (05:43→18:51)
[2020-03-15] MEDS: D5% in Water 1,000 ML IVC SCH ×2 (06:38→21:17)
[2020-03-15] MEDS: Ringers Solution, Lactated 1,000 ML IVC SCH (07:47)
[2020-03-15] MEDS: MetroNIDAZOLE 500 MG/100 ML 500 MG/100 ML BAG IVPB SCH ×3 (07:48→23:48)
[2020-03-15] MEDS: Dexamethasone 4 MG/ML VIAL IVP SCH (07:48)
[2020-03-15] MEDS: PARoxetine HCL 10 MG TABLET PO SCH (07:48)
[2020-03-15] MEDS: Chlorhexidine Rinse 15 ML MOUTHWASH MM SCH ×2 (07:52→21:19)
[2020-03-15] MEDS: Pantoprazole 40 MG VIAL IVP SCH (07:52)
[2020-03-15] MEDS ORDERED: Calcium Gluconate 1,000 MG/10 ML VIAL IVPB ONE (09:30)
[2020-03-15] MEDS: Calcium Gluconate 1gm/50mL 1 GM/50 ML BAG IVPB SCH ×2 (10:22→12:32)
[2020-03-15] MEDS ORDERED: 0.9 % Sodium Chloride 500 ML ONE ×2 (10:31→23:53)
[2020-03-15] MEDS ORDERED: Furosemide 40 MG/4 ML VIAL IVP ONE (12:14)
[2020-03-15] MEDS: Norepinephrine 4 MG/254 ML IV.SOLN IVC SCH (15:37)
[2020-03-15] MEDS: Midazolam HCl 50 MG/100 ML IV.SOLN IVC SCH (15:37)
[2020-03-15] MEDS: Cefepime HCl 1,000 MG in Water for inj. (sterile) 10 ML IVP SCH (15:39)
[2020-03-15] MEDS: Carbidopa/Levodopa 25/100 TABLET PO SCH (21:19)
[2020-03-16] MEDS: Insulin LISPRO 300 UNITS/3 ML VIAL SQ SCH ×4 (00:27→18:11)
[2020-03-16] MEDS ORDERED: Cefepime HCl 1,000 MG in Water for inj. (sterile) 10 ML IVP SCH (02:00)
[2020-03-16] MEDS: Artificial Tears SOLN 15 ML BOTTLE BOTH EYES SCH ×5 (03:37→19:35)
[2020-03-16] MEDS: FentaNYL (PF) 1,000 MCG/100 ML IV.SOLN IVC SCH (03:37)
[2020-03-16 03:43] LABS: VBG Ionized Calcium 0.96 mmol/L (1.15-1.35)
[2020-03-16 04:03] LABS: Hemoglobin 9.7 g/dL (11.5-15.4); Lymphocytes % 2.9 %; Nucleated Red Blood Cells 1.6 /100 WBC (0); Red Cell Distribution Width 17.5 % (11.5-14.5)
[2020-03-16 04:05] LABS: Basophils % 0.2 %; Eosinophils % 0.1 %; Hematocrit 32.3 % (35.3-44.9); Immature Granulocytes % 1.6 % (0-4); Immature Platelets 28.3 % (1.1-6.1); Lymphocytes # 0.3 K/mcL (0.6-4.6); Mean Corpuscular Hemoglobin 27.7 pg (28.0-33.3); Mean Corpuscular Volume 92.3 fL (83.0-100.0); Monocytes # 0.2 K/mcL (0.0-1.3); Monocytes % 2.1 %; Neutrophils # 8.3 K/mcL (1.6-8.9); Platelet Count 102 K/mcL (140-400); Segmented Neutrophils % 93.1 %; White Blood Count 8.9 K/mcL (4.3-11.1)
[2020-03-16 04:09] LABS: Albumin 2.7 g/dL (3.5-5.7); Albumin/Globulin Ratio 0.8 (1.1-2.2); Bilirubin,Total 0.5 mg/dL (0.3-1.0); Globulin 3.3 g/dL (2.4-3.5); Magnesium 1.7 mg/dL (1.6-2.6); Phosphorous 4.1 mg/dL (2.7-4.5); Potassium 3.5 mEq/L (3.5-5.1)
[2020-03-16 04:10] LABS: Calcium 7.2 mg/dL (8.6-10.3); Potassium 3.5 mEq/L (3.5-5.1)
[2020-03-16 04:11] LABS: ABG Base Excess -5 mEq/L (-2 to 3); ABG HCO3 20 mEq/L (21-27); ABG Oxygen Saturation 96 % (95-98); ABG PCO2 35 mmHg (35-45); ABG PH 7.36 pH Units (7.32-7.45); ABG PO2 86 mmHg (85-104); ABG TCO2 21 mEq/L (20-26); Blood Gas VT 400 cc
[2020-03-16] MEDS: *HR* Heparin 5,000 UNIT/ML VIAL SQ SCH ×3 (05:07→21:32)
[2020-03-16 06:02] LABS: Anisocytosis 1+ (Not Present); Poikilocytosis 1+ (Not Present)
[2020-03-16 06:03] LABS: Platelet Estimate Slight Decrease (Normal)
[2020-03-16] MEDS: Carbidopa/Levodopa 25/100 TABLET PO SCH ×2 (09:09→19:35)
[2020-03-16] MEDS: PARoxetine HCL 10 MG TABLET PO SCH (09:10)
[2020-03-16] MEDS: Pantoprazole 40 MG VIAL IVP SCH (09:10)
[2020-03-16] MEDS: Dexamethasone 4 MG/ML VIAL IVP SCH (09:10)
[2020-03-16] MEDS: Chlorhexidine Rinse 15 ML MOUTHWASH MM SCH ×2 (09:10→19:35)
[2020-03-16] MEDS: MetroNIDAZOLE 500 MG/100 ML 500 MG/100 ML BAG IVPB SCH (09:11)
[2020-03-16] MEDS: D5% in Water 1,000 ML IVC SCH (09:12)
[2020-03-16] MEDS ORDERED: Potassium Chloride Elixir 20 MEQ/15 ML UDC GTUBE ONE (09:34)
[2020-03-16] MEDS ORDERED: Furosemide 40 MG/4 ML VIAL IVP ONE (09:40)
[2020-03-16] MEDS: Calcium Gluconate 1gm/50mL 1 GM/50 ML BAG IVPB SCH ×3 (10:58→12:44)
[2020-03-16] MEDS: Midazolam HCl 50 MG/100 ML IV.SOLN IVC SCH (12:47)
[2020-03-16] MEDS: Norepinephrine 4 MG/254 ML IV.SOLN IVC SCH (15:40)
[2020-03-16] MEDS: Insulin DETEMIR 100 UNIT/ML X5UNITS SQ SCH (21:29)
[2020-03-17] MEDS: D5% in Water 1,000 ML IVC SCH ×3 (00:16→23:46)
[2020-03-17] MEDS: Insulin LISPRO 300 UNITS/3 ML VIAL SQ SCH ×6 (00:32→23:46)
[2020-03-17] MEDS: Artificial Tears SOLN 15 ML BOTTLE BOTH EYES SCH ×7 (00:32→23:46)
[2020-03-17] MEDS: FentaNYL (PF) 1,000 MCG/100 ML IV.SOLN IVC SCH (01:43)
[2020-03-17 03:46] LABS: Mean Corpuscular Hemoglobin 27.1 pg (28.0-33.3); Monocytes % 3.4 %
[2020-03-17 03:48] LABS: Basophils # 0.1 K/mcL (0.0-0.2); Basophils % 0.5 %; Hematocrit 33.8 % (35.3-44.9); Hemoglobin 10.3 g/dL (11.5-15.4); Immature Granulocytes % 4.7 % (0-4); Immature Platelets 29.1 % (1.1-6.1); Lymphocytes # 0.3 K/mcL (0.6-4.6); Lymphocytes % 2.6 %; Mean Corpuscular HGB Conc 30.5 g/dL (31.6-35.5); Mean Corpuscular Volume 88.9 fL (83.0-100.0); Monocytes # 0.4 K/mcL (0.0-1.3); Neutrophils # 9.8 K/mcL (1.6-8.9); Nucleated Red Blood Cells 4.4 /100 WBC (0); Platelet Count 114 K/mcL (140-400); Red Cell Distribution Width 17.4 % (11.5-14.5); Segmented Neutrophils % 88.8 %
[2020-03-17 03:50] LABS: VBG Ionized Calcium 1.06 mmol/L (1.15-1.35)
[2020-03-17 04:05] LABS: Albumin 2.8 g/dL (3.5-5.7); Albumin/Globulin Ratio 0.8 (1.1-2.2); Bilirubin,Total 0.4 mg/dL (0.3-1.0); Calcium 7.7 mg/dL (8.6-10.3); Calcium 7.9 mg/dL (8.6-10.3); Globulin 3.4 g/dL (2.4-3.5); Magnesium 2.1 mg/dL (1.6-2.6); Phosphorous 2.1 mg/dL (2.7-4.5); Potassium 3.6 mEq/L (3.5-5.1); Total Protein 6.2 g/dL (6.4-8.9)
[2020-03-17 04:29] LABS: ABG Base Excess -1 mEq/L (-2 to 3); ABG HCO3 24 mEq/L (21-27); ABG Oxygen Saturation 97 % (95-98); ABG PCO2 37 mmHg (35-45); ABG PH 7.42 pH Units (7.32-7.45); ABG PO2 88 mmHg (85-104); ABG TCO2 25 mEq/L (20-26); Blood Gas Modality BiLevel; Blood Gas VT 430 cc
[2020-03-17] MEDS ORDERED: Potassium Phosphate 44 MEQ in 0.9 % Sodium Chloride 250 ML IVPB PRN (04:55)
[2020-03-17] MEDS: Calcium Gluconate 1gm/50mL 1 GM/50 ML BAG IVPB PRN ×3 (05:26→21:38)
[2020-03-17] MEDS: *HR* Heparin 5,000 UNIT/ML VIAL SQ SCH ×3 (05:28→20:36)
[2020-03-17] MEDS: PARoxetine HCL 10 MG TABLET PO SCH (09:19)
[2020-03-17] MEDS: Pantoprazole 40 MG VIAL IVP SCH (09:20)
[2020-03-17] MEDS: Insulin DETEMIR 100 UNIT/ML X5UNITS SQ SCH ×3 (09:20→20:36)
[2020-03-17] MEDS: Chlorhexidine Rinse 15 ML MOUTHWASH MM SCH ×2 (09:20→20:36)
[2020-03-17] MEDS: Dexamethasone 4 MG/ML VIAL IVP SCH (09:20)
[2020-03-17] MEDS: Carbidopa/Levodopa 25/100 TABLET PO SCH ×2 (09:20→20:36)
[2020-03-17] MEDS ORDERED: Furosemide 40 MG/4 ML VIAL IVP ONE (09:30)
[2020-03-17] MEDS ORDERED: 0.9 % Sodium Chloride 500 ML ONE (11:07)
[2020-03-17] MEDS ORDERED: Insulin DETEMIR 100 UNIT/ML X5UNITS SQ ONE (12:00)
[2020-03-17] MEDS: Norepinephrine 4 MG/254 ML IV.SOLN IVC SCH (13:13)
[2020-03-17] MEDS: Midazolam HCl 50 MG/100 ML IV.SOLN IVC SCH (13:13)
[2020-03-17 13:58] LABS: VBG Ionized Calcium 0.99 mmol/L (1.15-1.35)
[2020-03-17 14:14] LABS: Phosphorous 4.4 mg/dL (2.7-4.5); Potassium 4.1 mEq/L (3.5-5.1)
[2020-03-17 21:34] LABS: Phosphorous 3.7 mg/dL (2.7-4.5); Potassium 3.7 mEq/L (3.5-5.1)
[2020-03-17] MEDS: Potassium Chloride 40 MEQ/200 ML BAG IVPB PRN ×2 (21:45→22:45)
[2020-03-18] MEDS: Insulin LISPRO 300 UNITS/3 ML VIAL SQ SCH ×5 (03:40→21:54)
[2020-03-18] MEDS: Artificial Tears SOLN 15 ML BOTTLE BOTH EYES SCH ×5 (03:40→21:53)
[2020-03-18 03:50] LABS: Hemoglobin 10.5 g/dL (11.5-15.4)
[2020-03-18 03:52] LABS: Hematocrit 33.6 % (35.3-44.9); Immature Platelets 29.8 % (1.1-6.1); Mean Corpuscular HGB Conc 31.3 g/dL (31.6-35.5); Mean Corpuscular Hemoglobin 27.4 pg (28.0-33.3); Mean Corpuscular Volume 87.7 fL (83.0-100.0); Platelet Count 119 K/mcL (140-400); Red Blood Count 3.83 M/mcL (3.82-4.97); Red Cell Distribution Width 17.2 % (11.5-14.5); White Blood Count 10.9 K/mcL (4.3-11.1)
[2020-03-18 03:54] LABS: VBG Ionized Calcium 1.04 mmol/L (1.15-1.35)
[2020-03-18 03:56] LABS: ABG Base Excess 6 mEq/L (-2 to 3); ABG HCO3 30 mEq/L (21-27); ABG Oxygen Saturation 94 % (95-98); ABG PCO2 39 mmHg (35-45); ABG PO2 65 mmHg (85-104); ABG TCO2 31 mEq/L (20-26); Blood Gas Modality ASSIST CONTROL; Blood Gas VT 450 cc
[2020-03-18 04:10] LABS: Albumin 3.1 g/dL (3.5-5.7); Albumin/Globulin Ratio 0.9 (1.1-2.2); Bilirubin,Total 0.6 mg/dL (0.3-1.0); Calcium 8.4 mg/dL (8.6-10.3); Globulin 3.5 g/dL (2.4-3.5); Magnesium 1.9 mg/dL (1.6-2.6); Phosphorous 3.5 mg/dL (2.7-4.5); Potassium 4.4 mEq/L (3.5-5.1); Total Protein 6.6 g/dL (6.4-8.9)
[2020-03-18 04:23] LABS: Lymphocytes # 1.3 K/mcL (0.6-4.6); Monocytes # 0.9 K/mcL (0.0-1.3); Neutrophils # 8.7 K/mcL (1.6-8.9)
[2020-03-18 04:24] LABS: Platelet Estimate Decreased (Normal)
[2020-03-18] MEDS: Calcium Gluconate 1gm/50mL 1 GM/50 ML BAG IVPB PRN (04:25)
[2020-03-18] MEDS: *HR* Heparin 5,000 UNIT/ML VIAL SQ SCH ×3 (05:25→21:57)
[2020-03-18] MEDS: Chlorhexidine Rinse 15 ML MOUTHWASH MM SCH ×2 (07:37→21:00)
[2020-03-18] MEDS: PARoxetine HCL 10 MG TABLET PO SCH (07:38)
[2020-03-18] MEDS: Dexamethasone 4 MG/ML VIAL IVP SCH (07:38)
[2020-03-18] MEDS: Carbidopa/Levodopa 25/100 TABLET PO SCH ×2 (07:38→21:55)
[2020-03-18] MEDS: Pantoprazole 40 MG VIAL IVP SCH (07:39)
[2020-03-18] MEDS: Insulin DETEMIR 100 UNIT/ML X5UNITS SQ SCH ×2 (07:53→21:56)
[2020-03-18] MEDS: FentaNYL (PF) 1,000 MCG/100 ML IV.SOLN IVC SCH (08:45)
[2020-03-18] MEDS ORDERED: Furosemide 40 MG/4 ML VIAL IVP ONE (09:13)
[2020-03-18] MEDS: Calcium Gluconate 1gm/50mL 1 GM/50 ML BAG IVPB SCH ×2 (09:31→09:57)
[2020-03-18] MEDS: Midazolam HCl 50 MG/100 ML IV.SOLN IVC SCH (09:57)
[2020-03-18] MEDS ORDERED: Bisacodyl 10 MG RECTAL SUPPOSITORY RC PRN (10:47)
[2020-03-18 11:08] LABS: VBG Ionized Calcium 1.14 mmol/L (1.15-1.35)
[2020-03-18] MEDS: Docusate Oral Soln 100 MG/10 ML UDC GTUBE SCH ×2 (11:25→21:55)
[2020-03-18] MEDS: D5% in Water 1,000 ML IVC SCH (11:26)
[2020-03-18] MEDS: Norepinephrine 4 MG/254 ML IV.SOLN IVC SCH (13:01)
[2020-03-19] MEDS: Artificial Tears SOLN 15 ML BOTTLE BOTH EYES SCH ×3 (00:42→09:18)
[2020-03-19] MEDS: Insulin LISPRO 300 UNITS/3 ML VIAL SQ SCH ×5 (00:42→17:14)
[2020-03-19 04:25] LABS: Hematocrit 36.4 % (35.3-44.9); Immature Platelets 32.4 % (1.1-6.1); Mean Corpuscular HGB Conc 30.2 g/dL (31.6-35.5); Mean Corpuscular Volume 89.4 fL (83.0-100.0); Monocytes # 0.6 K/mcL (0.0-1.3); Nucleated Red Blood Cells 1.5 /100 WBC (0); Platelet Count 125 K/mcL (140-400); Red Blood Count 4.07 M/mcL (3.82-4.97); White Blood Count 10.4 K/mcL (4.3-11.1)
[2020-03-19 04:37] LABS: Calcium 8.6 mg/dL (8.6-10.3); Potassium 3.8 mEq/L (3.5-5.1)
[2020-03-19] MEDS: *HR* Heparin 5,000 UNIT/ML VIAL SQ SCH ×3 (05:26→22:17)
[2020-03-19] MEDS: D5% in Water 1,000 ML IVC SCH (05:26)
[2020-03-19 05:45] LABS: Neutrophils # 8.7 K/mcL (1.6-8.9)
[2020-03-19 05:46] LABS: Platelet Estimate Decreased (Normal)
[2020-03-19] MEDS ORDERED: Vancomycin 500 MG in 0.9 % Sodium Chloride Mini Bag 100 ML IVPB ONE (09:00)
[2020-03-19] MEDS: Chlorhexidine Rinse 15 ML MOUTHWASH MM SCH (09:16)
[2020-03-19] MEDS: Carbidopa/Levodopa 25/100 TABLET PO SCH ×2 (09:16→20:16)
[2020-03-19] MEDS: PARoxetine HCL 10 MG TABLET PO SCH (09:16)
[2020-03-19] MEDS: Docusate Oral Soln 100 MG/10 ML UDC GTUBE SCH (09:17)
[2020-03-19] MEDS: Dexamethasone 4 MG/ML VIAL IVP SCH (09:17)
[2020-03-19] MEDS: Pantoprazole 40 MG VIAL IVP SCH (09:18)
[2020-03-19] MEDS: Insulin DETEMIR 100 UNIT/ML X5UNITS SQ SCH ×2 (09:24→19:42)
[2020-03-19] MEDS: Norepinephrine 4 MG/254 ML IV.SOLN IVC SCH (11:10)
[2020-03-19] MEDS ORDERED: Dextrose Gel 15 GM/37.5 ML TUBE PO PRN ×2 (11:29)
[2020-03-19] MEDS ORDERED: Bisacodyl 10 MG RECTAL SUPPOSITORY RC PRN (11:29)
[2020-03-19] MEDS ORDERED: D5% in Water 1,000 ML IVC SCH (11:29)
[2020-03-19] MEDS ORDERED: *HR* Dextrose 50 % in Water (Vial) 50 ML VIAL IVP PRN (11:29)
[2020-03-19] MEDS ORDERED: Insulin LISPRO 300 UNITS/3 ML VIAL SQ SCH (12:00)
[2020-03-19] MEDS: D5% in 0.45% NACL w KCl 10 MEQ/1,000 ML MLS IVC SCH (15:26)
[2020-03-20] MEDS: Insulin LISPRO 300 UNITS/3 ML VIAL SQ SCH ×4 (01:15→18:07)
[2020-03-20] MEDS: D5% in 0.45% NACL w KCl 10 MEQ/1,000 ML MLS IVC SCH ×2 (02:04→13:25)
[2020-03-20 03:51] LABS: Monocytes % 2.8 %
[2020-03-20 03:53] LABS: Basophils % 0.1 %; Hematocrit 34.6 % (35.3-44.9); Hemoglobin 10.2 g/dL (11.5-15.4); Immature Granulocytes % 2.9 % (0-4); Immature Platelets 30.4 % (1.1-6.1); Lymphocytes # 0.3 K/mcL (0.6-4.6); Lymphocytes % 1.9 %; Mean Corpuscular HGB Conc 29.5 g/dL (31.6-35.5); Mean Corpuscular Hemoglobin 26.8 pg (28.0-33.3); Mean Corpuscular Volume 90.8 fL (83.0-100.0); Monocytes # 0.4 K/mcL (0.0-1.3); Neutrophils # 12.7 K/mcL (1.6-8.9); Nucleated Red Blood Cells 0.3 /100 WBC (0); Platelet Count 118 K/mcL (140-400); Red Blood Count 3.81 M/mcL (3.82-4.97); Red Cell Distribution Width 17.4 % (11.5-14.5); Segmented Neutrophils % 92.3 %; White Blood Count 13.7 K/mcL (4.3-11.1)
[2020-03-20 04:13] LABS: BUN/Creatinine Ratio 60 (6-26); Blood Urea Nitrogen 57 mg/dL (8-23); Calcium 7.3 mg/dL (8.6-10.3); Carbon Dioxide 29 mEq/L (23-29); Chloride 107 mEq/L (98-107); Glucose 107 mg/dL (70-105); Osmolality,Calculated 324 (280-300); Potassium 3.4 mEq/L (3.5-5.1); Sodium 149 mEq/L (136-145); eGFR For African Americans > 60 (> 60); eGFR For Non-African Americans 56 (> 60)
[2020-03-20] MEDS: *HR* Heparin 5,000 UNIT/ML VIAL SQ SCH ×3 (06:02→21:14)
[2020-03-20] MEDS ORDERED: Dexamethasone 4 MG/ML VIAL IVP SCH (09:00)
[2020-03-20] MEDS: Carbidopa/Levodopa 25/100 TABLET PO SCH ×2 (09:31→21:13)
[2020-03-20] MEDS: Dexamethasone 4 MG/ML VIAL IVP SCH (09:37)
[2020-03-20] MEDS: Insulin DETEMIR 100 UNIT/ML X5UNITS SQ SCH ×2 (09:41→21:15)
[2020-03-20] MEDS: Pantoprazole 40 MG VIAL IVP SCH (10:08)
[2020-03-21] MEDS: Insulin LISPRO 300 UNITS/3 ML VIAL SQ SCH ×4 (00:15→18:14)
[2020-03-21] MEDS: D5% in 0.45% NACL w KCl 10 MEQ/1,000 ML MLS IVC SCH ×3 (00:31→21:59)
[2020-03-21 01:52] LABS: Basophils % 0.1 %; Hemoglobin 10.4 g/dL (11.5-15.4)
[2020-03-21 01:54] LABS: Hematocrit 34.7 % (35.3-44.9); Immature Granulocytes % 2.2 % (0-4); Immature Platelets 30.3 % (1.1-6.1); Lymphocytes # 0.4 K/mcL (0.6-4.6); Lymphocytes % 2.2 %; Mean Corpuscular Hemoglobin 27.2 pg (28.0-33.3); Mean Corpuscular Volume 90.6 fL (83.0-100.0); Monocytes # 0.4 K/mcL (0.0-1.3); Monocytes % 2.2 %; Neutrophils # 15.2 K/mcL (1.6-8.9); Nucleated Red Blood Cells 0.2 /100 WBC (0); Platelet Count 120 K/mcL (140-400); Red Blood Count 3.83 M/mcL (3.82-4.97); Red Cell Distribution Width 17.4 % (11.5-14.5); Segmented Neutrophils % 93.3 %; White Blood Count 16.3 K/mcL (4.3-11.1)
[2020-03-21 02:14] LABS: BUN/Creatinine Ratio 54 (6-26); Blood Urea Nitrogen 44 mg/dL (8-23); Calcium 6.6 mg/dL (8.6-10.3); Carbon Dioxide 25 mEq/L (23-29); Chloride 113 mEq/L (98-107); Glucose 90 mg/dL (70-105); Osmolality,Calculated 315 (280-300); Potassium 3.6 mEq/L (3.5-5.1); Sodium 147 mEq/L (136-145); eGFR For African Americans > 60 (> 60); eGFR For Non-African Americans > 60 (> 60)
[2020-03-21] MEDS: *HR* Heparin 5,000 UNIT/ML VIAL SQ SCH ×3 (06:18→20:02)
[2020-03-21] MEDS: Carbidopa/Levodopa 25/100 TABLET PO SCH ×2 (07:36→19:34)
[2020-03-21] MEDS: Dexamethasone 4 MG/ML VIAL IVP SCH (09:54)
[2020-03-21] MEDS: Pantoprazole 40 MG VIAL IVP SCH (09:55)
[2020-03-21] MEDS: Insulin DETEMIR 100 UNIT/ML X5UNITS SQ SCH ×2 (11:25→20:02)
[2020-03-21] MEDS: Calcium Gluconate 1gm/50mL 1 GM/50 ML BAG IVPB SCH ×2 (17:10→18:15)
[2020-03-22] MEDS: Insulin LISPRO 300 UNITS/3 ML VIAL SQ SCH ×4 (00:56→18:55)
[2020-03-22] MEDS: Levothyroxine Sodium 100 MCG VIAL IVP SCH (05:15)
[2020-03-22] MEDS: *HR* Heparin 5,000 UNIT/ML VIAL SQ SCH ×3 (05:18→22:51)
[2020-03-22 05:22] LABS: Eosinophils % 0.1 %
[2020-03-22 05:23] LABS: Basophils % 0.2 %; Hematocrit 34.2 % (35.3-44.9); Hemoglobin 10.1 g/dL (11.5-15.4); Immature Platelets 31.6 % (1.1-6.1); Lymphocytes # 0.4 K/mcL (0.6-4.6); Lymphocytes % 2.4 %; Mean Corpuscular HGB Conc 29.5 g/dL (31.6-35.5); Mean Corpuscular Hemoglobin 27.2 pg (28.0-33.3); Mean Corpuscular Volume 91.9 fL (83.0-100.0); Monocytes # 0.3 K/mcL (0.0-1.3); Nucleated Red Blood Cells 0.1 /100 WBC (0); Platelet Count 114 K/mcL (140-400); Red Blood Count 3.72 M/mcL (3.82-4.97); Red Cell Distribution Width 17.6 % (11.5-14.5); Segmented Neutrophils % 93.3 %; White Blood Count 15.9 K/mcL (4.3-11.1)
[2020-03-22 05:24] LABS: Neutrophils # 14.8 K/mcL (1.6-8.9)
[2020-03-22 05:38] LABS: BUN/Creatinine Ratio 44 (6-26); Blood Urea Nitrogen 32 mg/dL (8-23); Calcium 6.7 mg/dL (8.6-10.3); Carbon Dioxide 23 mEq/L (23-29); Chloride 114 mEq/L (98-107); Glucose 114 mg/dL (70-105); Osmolality,Calculated 306 (280-300); Potassium 3.6 mEq/L (3.5-5.1); Sodium 144 mEq/L (136-145); eGFR For African Americans > 60 (> 60); eGFR For Non-African Americans > 60 (> 60)
[2020-03-22] MEDS: Dexamethasone 4 MG/ML VIAL IVP SCH (09:08)
[2020-03-22] MEDS: Pantoprazole 40 MG VIAL IVP SCH (09:08)
[2020-03-22] MEDS: Carbidopa/Levodopa 25/100 TABLET PO SCH ×2 (09:09→20:09)
[2020-03-22] MEDS: Insulin DETEMIR 100 UNIT/ML X5UNITS SQ SCH (09:10)
[2020-03-22] MEDS: D5% in 0.45% NACL w KCl 10 MEQ/1,000 ML MLS IVC SCH ×3 (09:17→20:17)
[2020-03-22 11:40] LABS: Magnesium 1.5 mg/dL (1.6-2.6); Phosphorous 2.2 mg/dL (2.7-4.5)
[2020-03-23] MEDS: *HR* Heparin 5,000 UNIT/ML VIAL SQ SCH ×2 (05:44→14:52)
[2020-03-23] MEDS: Levothyroxine Sodium 100 MCG VIAL IVP SCH (05:45)
[2020-03-23 07:43] LABS: Basophils % 0.1 %; Eosinophils # 0.1 K/mcL (0.0-0.6); Eosinophils % 0.4 %; Hematocrit 34.6 % (35.3-44.9); Hemoglobin 10.3 g/dL (11.5-15.4); Immature Granulocytes % 1.5 % (0-4); Immature Platelets 32.4 % (1.1-6.1); Lymphocytes # 0.5 K/mcL (0.6-4.6); Lymphocytes % 2.8 %; Mean Corpuscular HGB Conc 29.8 g/dL (31.6-35.5); Mean Corpuscular Hemoglobin 27.2 pg (28.0-33.3); Mean Corpuscular Volume 91.3 fL (83.0-100.0); Monocytes # 0.4 K/mcL (0.0-1.3); Monocytes % 2.8 %; Neutrophils # 14.8 K/mcL (1.6-8.9); Platelet Count 127 K/mcL (140-400); Red Blood Count 3.79 M/mcL (3.82-4.97); Red Cell Distribution Width 17.9 % (11.5-14.5); Segmented Neutrophils % 92.4 %
[2020-03-23 07:50] LABS: BUN/Creatinine Ratio 32 (6-26); Blood Urea Nitrogen 21 mg/dL (8-23); Calcium 6.2 mg/dL (8.6-10.3); Carbon Dioxide 18 mEq/L (23-29); Chloride 113 mEq/L (98-107); Glucose 92 mg/dL (70-105); Osmolality,Calculated 293 (280-300); Potassium 3.6 mEq/L (3.5-5.1); Sodium 140 mEq/L (136-145); eGFR For African Americans > 60 (> 60); eGFR For Non-African Americans > 60 (> 60)
[2020-03-23 08:06] LABS: Platelet Estimate Decreased (Normal)
[2020-03-23 08:07] LABS: Large Platelets Present (Not Present)
[2020-03-23] MEDS: Pantoprazole 40 MG VIAL IVP SCH (08:55)
[2020-03-23] MEDS: Carbidopa/Levodopa 25/100 TABLET PO SCH (08:55)
[2020-03-23] MEDS: Dexamethasone 4 MG/ML VIAL IVP SCH (08:56)
[2020-03-23] MEDS: D5% in 0.45% NACL w KCl 10 MEQ/1,000 ML MLS IVC SCH (09:01)
[2020-03-24] MEDS: Carbidopa/Levodopa 25/100 TABLET PO SCH ×3 (00:32→19:49)
[2020-03-24] MEDS: QUEtiapine Fumarate 25 MG TABLET PO SCH ×2 (00:33→19:48)
[2020-03-24] MEDS: D5% in 0.45% NACL w KCl 10 MEQ/1,000 ML MLS IVC SCH ×3 (02:37→15:05)
[2020-03-24] MEDS: Levothyroxine Sodium 100 MCG VIAL IVP SCH (06:04)
[2020-03-24] MEDS: *HR* Enoxaparin 40 MG/0.4 ML SYRINGE SQ SCH (06:05)
[2020-03-24] MEDS ORDERED: Melatonin 3 MG TABLET PO PRN (11:53)
[2020-03-24] MEDS ORDERED: Calcium Gluconate 2,000 MG in D5% in Water 100 ML IVPB ONE (12:53)
[2020-03-25] MEDS: D5% in 0.45% NACL w KCl 10 MEQ/1,000 ML MLS IVC SCH ×2 (04:19→11:19)
[2020-03-25] MEDS: *HR* Enoxaparin 40 MG/0.4 ML SYRINGE SQ SCH (04:20)
[2020-03-25] MEDS: Levothyroxine Sodium 100 MCG VIAL IVP SCH (04:23)
[2020-03-25 05:31] LABS: Eosinophils % 0.4 %
[2020-03-25 05:33] LABS: Basophils % 0.1 %; Hematocrit 33.8 % (35.3-44.9); Hemoglobin 10.3 g/dL (11.5-15.4); Immature Granulocytes % 1.5 % (0-4); Immature Platelets 33.4 % (1.1-6.1); Lymphocytes # 0.4 K/mcL (0.6-4.6); Lymphocytes % 4.4 %; Mean Corpuscular HGB Conc 30.5 g/dL (31.6-35.5); Mean Corpuscular Hemoglobin 27.5 pg (28.0-33.3); Mean Corpuscular Volume 90.1 fL (83.0-100.0); Monocytes # 0.3 K/mcL (0.0-1.3); Monocytes % 3.6 %; Neutrophils # 8.2 K/mcL (1.6-8.9); Platelet Count 112 K/mcL (140-400); Red Blood Count 3.75 M/mcL (3.82-4.97); Red Cell Distribution Width 18.2 % (11.5-14.5); White Blood Count 9.1 K/mcL (4.3-11.1)
[2020-03-25 05:47] LABS: Large Platelets Present (Not Present); Platelet Estimate Slight Decrease (Normal)
[2020-03-25 05:48] LABS: BUN/Creatinine Ratio 24 (6-26); Blood Urea Nitrogen 15 mg/dL (8-23); Calcium 6.6 mg/dL (8.6-10.3); Carbon Dioxide 18 mEq/L (23-29); Chloride 113 mEq/L (98-107); Glucose 70 mg/dL (70-105); Osmolality,Calculated 285 (280-300); Potassium 3.8 mEq/L (3.5-5.1); Sodium 138 mEq/L (136-145); eGFR For African Americans > 60 (> 60); eGFR For Non-African Americans > 60 (> 60)
[2020-03-25] MEDS ORDERED: calcitrioL 0.25 MCG CAPSULE PO SCH (09:00)
[2020-03-25] MEDS: Cyanocobalamin (B-12) 1,000 MCG TABLET PO SCH (09:47)
[2020-03-25] MEDS: polyethylene glycoL 3350 17 GM POWD.PACK PO SCH (09:47)
[2020-03-25] MEDS: PARoxetine HCL 10 MG TABLET PO SCH (09:47)
[2020-03-25] MEDS: Carbidopa/Levodopa 25/100 TABLET PO SCH ×2 (09:47→21:29)
[2020-03-25] MEDS ORDERED: *HR* Metoprolol 5 MG/5 ML VIAL IVP ONE (10:21)
[2020-03-25 12:57] LABS: VBG Ionized Calcium 0.92 mmol/L (1.15-1.35)
[2020-03-25] MEDS: Ferrous Sulfate Oral Soln 300 MG/5 ML UDC PO SCH (13:04)
[2020-03-25] MEDS ORDERED: Calcium Gluconate 2,000 MG in D5% in Water 100 ML IVPB ONE (14:20)
[2020-03-25] MEDS ORDERED: calcitrioL 0.25 MCG CAPSULE PO ONE (14:32)
[2020-03-25 14:37] LABS: Magnesium 1.6 mg/dL (1.6-2.6)
[2020-03-25] MEDS: QUEtiapine Fumarate 25 MG TABLET PO SCH (21:30)
[2020-03-25] MEDS: Cholecalciferol (D-3) 1,000 UNIT (25MCG) TABLET PO SCH (22:09)
[2020-03-26 05:13] LABS: VBG Ionized Calcium 1.06 mmol/L (1.15-1.35)
[2020-03-26 05:44] LABS: BUN/Creatinine Ratio 24 (6-26); Blood Urea Nitrogen 15 mg/dL (8-23); Calcium 7.4 mg/dL (8.6-10.3); Carbon Dioxide 18 mEq/L (23-29); Chloride 112 mEq/L (98-107); Glucose 75 mg/dL (70-105); Osmolality,Calculated 284 (280-300); Potassium 3.9 mEq/L (3.5-5.1); Sodium 137 mEq/L (136-145); eGFR For African Americans > 60 (> 60); eGFR For Non-African Americans > 60 (> 60)
[2020-03-26] MEDS: *HR* Enoxaparin 40 MG/0.4 ML SYRINGE SQ SCH (05:56)
[2020-03-26] MEDS: Levothyroxine Sodium 100 MCG VIAL IVP SCH (05:57)
[2020-03-26] MEDS: PARoxetine HCL 10 MG TABLET PO SCH (10:06)
[2020-03-26] MEDS: Cyanocobalamin (B-12) 1,000 MCG TABLET PO SCH (10:06)
[2020-03-26] MEDS: Cholecalciferol (D-3) 1,000 UNIT (25MCG) TABLET PO SCH (10:06)
[2020-03-26] MEDS: Carbidopa/Levodopa 25/100 TABLET PO SCH (10:06)
[2020-03-26] MEDS: polyethylene glycoL 3350 17 GM POWD.PACK PO SCH (10:07)
[2020-03-26] MEDS: Ferrous Sulfate Oral Soln 300 MG/5 ML UDC PO SCH (12:23)
[2020-03-26 15:52] VITALS: BP 119/73
== END 2020-03-26 17:35 | DRG 870 ==
LOC: EMEROOARM 11:15 → 2NENU 11:15 → SUATTDRO 15:49
PROVIDERS: ADMIT Internal Medicine; ATTEND Student in an Organized Health Care Education/Training Program